=== PATIENT | female | born 1970 | race Caucasian/White ===

== ENCOUNTER 2022-01-08 12:53 | Outpatient (CLI) | payer BC, SELFPAY ==
--- NOTE | 2022-01-08 13:15 | CRLHL7_ITS ---
For Patients: As a result of the Century Cures Act, medical imaging exams and procedure reports are released immediately into your electronic medical record. You may view this report before your referring provider. If you have questions, please contact your health care provider. INDICATION: History of a right-sided lung cancer status post right lower lobectomy in 2015. Patient with prior radiation treatment. Patient with ongoing systemic therapy. Exam is being performed for restaging. TECHNIQUE: Patient received 13.1 millicuries of 18 FDG (18 fluorodeoxyglucose) intravenously. PET-CT imaging has been performed from the mid skull to mid thigh level at [address] images have been obtained for attenuation correction and localization only. Blood glucose level: 92 mg/dL. COMPARISON: PET-CT dated 04/03/2021. FINDINGS: Within the chest no abnormal uptake is identified in the mediastinum or hilar regions. Activity associated with the right atrium is identified which is likely physiologic. The lungs demonstrate no abnormal uptake. There are postsurgical changes from a right lower lobectomy. No suspicious infiltrates or masses are seen. Axilla and chest wall demonstrates no significant abnormal uptake. The neck demonstrates symmetric salivary and oropharyngeal activity, no suspicious hypermetabolic lymph nodes are seen. The skullbase is unremarkable. Liver and spleen demonstrate no significant abnormal uptake. Large geographic central low-dense lesion within the left lobe of the liver is again identified and unchanged. This continues to have relative decreased activity within the central portion of this and the pattern is stable. The spleen, pancreas, bilateral adrenal glands demonstrate no both abnormal uptake. The gallbladder is contracted with areas of increased density. This demonstrates no abnormal uptake. Retrocrural region and retroperitoneum demonstrate no abnormal uptake. The iliac rigoberto chain and groin demonstrate no significant abnormal uptake. IUD is in place within the uterus without abnormal uptake. There is prominent physiologic bowel activity. Skeletal system demonstrates lucency within the L4 vertebral body without abnormal uptake. The pattern is stable. There is a diffuse moderate pattern of marrow activity on today`s PET-CT. IMPRESSION: 1. Stable PET-CT scan. 2. No hypermetabolic lesions are identified to suggest residual viable tumor or recurrent disease. 3. There is a large lesion within the left lobe liver which is stable. This may reflect a large hemangioma. 4. Stable lucent lesion L4 vertebral body without abnormal uptake. 5. Stable postsurgical changes from partial lung resection on the right. Dictated by Valente Cobb MD @ 01/14/2022 8:14:56 AM (Electronically Signed)
== END 2022-01-08 12:54 | disposition home or self-care (01) ==
PROVIDERS: Visit Provider Internal Medicine Medical Oncology
DX: C34.31 Malignant neoplasm of lower lobe, right bronchus or lung (principal); K76.9 Liver disease, unspecified; M89.9 Disorder of bone, unspecified
CPT/HCPCS: 78815; A9552

== ENCOUNTER 2022-02-09 07:03 | Outpatient (CLI) | payer BC, SELFPAY ==
--- OUTSIDE RECORDS SUMMARY | 2022-02-09 07:05 | XMS_ITS | Encounter Summary ---
:1970 Author Organization [facility] Address [address] [place] [address] Care Team Providers Name Role Phone Jessica Schulz APRN, C.N.PEvette, D.N.P. Primary Care Provider Reason for Referral Specialty Diagnoses / Procedures Referred By Contact Refer red To Contact Jessica Schulz APRN, C.N.PEvette, [facility] D.N.P. [address] [phone] Referral ID Status Reason Start Date Expiration Date Visits Requ ested Visits Authorized [employer] Encounter Details Date Type Department Care Team Description 06/29/2021 Orders Only [facility] PCP [facility] Jessica Schulz APRN, C.N.PEvette, D.N.P. [address] [phone] (Wo rk) Social History Tobacco Use Types Packs/Day Years Used Date Smoking Tobacco: Former Smokeless Tobacco: Never Alcohol Habits Answer Date Recorded How often do you have a drink containing alcohol? Monthly or less 12/08/2018 How many drinks containing alcohol do you have on a 1 or 2 12/23/2018 typical day when you are drinking? How often do you have six or more drinks on one Less than mo nthly 12/23/2018 occasion? Comment: Not asked Social Isolation Answer Date Recorded In a typical week, how many times do you More than three gracia es a week 12/08/2018 talk on the phone with family, friends, or neighbors? How often do you get together with friends Once a week 12/08/2018 or relatives? How often do you attend orthodoxy or 1 to 4 times per year 11/21 buddhist services? Do you belong to any clubs or No 12/08/2018 organizations such as orthodoxy groups, unions, fraUnderground Cellar or athletic groups, or school groups? How often do you attend meetings of the Never 12/08/2018 clubs or organizations you belong to? Are you now , , , Living with partner 12/08/2018 , never or living with a partner? Physical Activity Answer Date Recorded On average, how many days per week do you engage in moderate to 3 days 12/08/2018 strenuous exercise (like walking fast, running, jogging, dancing, swimming, biking, or other activities that cause a light or heavy sweat)? On average, how many minutes do you engage in exercise at th is 30 min 12/08/2018 level? Stress Answer Date Recorded Do you feel stress - tense, restless, nervous, or Only a lit tle 12/23/2018 anxious, or unable to sleep at night because your mind is troubled all the time - these days? Financial Resource Strain Answer Date Recorded How hard is it for you to pay for the very basics like Not h rik at all 12/08/2018 food, housing, medical care, and heating? Intimate Partner Violence Answer Date Recorded Within the last year, have you been afraid of your partner o r No 12/08/2018 ex-partner? Within the last year, have you been humiliated or emotionall y No 12/08/2018 abused in other ways by your partner or ex-partner? Within the last year, have you been kicked, hit, slapped, or No 12/08/2018 otherwise physically hurt by your partner or ex-partner? Within the last year, have you been raped or forced to have any No 12/08/2018 kind of sexual activity by your partner or ex-partner? Food Insecurity Answer Date Recorded Within the past 12 months, you worried that your food would Never true 12/08/2018 run out before you got money to buy more. Within the past 12 months, the food you bought just didn't N ever true 12/08/2018 last and you didn't have money to get more. Transportation Needs Answer Date Recorded In the past 12 months, has lack of transportation kept you f rom No 12/08/2018 medical appointments or from getting medications? In the past 12 months, has lack of transportation kept you f rom No 12/08/2018 meetings, work, or getting things needed for daily living? Education Answer Date Recorded What is the highest level of school Associate degree: shanita mckeon, 12/08/2018 you have completed or the highest technical, or vocational p ferdinandram degree you have received? Sex Assigned at Date Recorded Not on file documented as of this encounter Plan of Treatment Scheduled Referrals Name Type Priority Associated Order Schedule Diagnoses Covid immunization Outpatient Referral Routine Ex pected: office visit Booster 022 (Approximate), Expires: 06/29/2022 documented as of this encounter Visit Diagnoses Not on filedocumented in this encounter Additional Health Concerns Assessment Noted Time PHQ-9 Depression Total Score: 13 01/17/2019 8:17 AM CD T documented as of this encounter Care Teams Lead Software Engineer Relationship Specialty Start Date End Date Jessica Schulz APRN, C.N.P., D.N.P. PCP - General 12/12/[address] [phone] documented as of this encounter
--- OUTSIDE RECORDS SUMMARY | 2022-02-09 07:05 | XMS_ITS | Encounter Summary ---
:1970 Author Organization [facility] Address [address] [place] [address] Care Team Providers Name Role Phone Jessica Schulz APRN, C.N.PEvette, D.N.P. Primary Care Provider Reason for Referral Outpatient (Routine) - Authorized Specialty Diagnoses / Procedures Referred By Contact Refer red To Contact Family Medicine Jessica Schulz, PRATIK, MILESS [facility] C.N.P., D.N.P. [address], [place] [address] Referral ID Status Reason Start Date Expiration Date Visits V isits Requested Authorized [id number] Authorized 08/26/2021 08/26/2022 1 1 Encounter Details Date Type Department Care Team Description 08/26/2021 Orders Only [facility] Jessica Schulz, Screening Examination Diabetes Mellitus; PRATIK C.N.PEvette, Screening Lipi d D.N.P. [address], [place] [address] Social History Tobacco Use Types Packs/Day Years [...] or relatives? How often do you attend taoism or 1 to 4 times per year 11/21 mu-ism services? Do you belong to any clubs or No 12/08/2018 organizations such as taoism groups, unions, fraCardize or athletic groups, or school groups? How [...] or the highest technical, or vocational p Ezeecuberam degree you have received? Sex Assigned at Date Recorded Not on file documented as of this encounter Plan of Treatment Scheduled Orders Name Type Priority Associated Diagnoses Order S [facility] Glucose, Fasting Lab Routine Screening Examination Ex pected: 09/09/2021, Diabetes Mellitus Expires: 1 Lipid Panel Lab Routine Screening Lipid Expected: , Expires: 2021 Scheduled Referrals Name Type Priority Associated Diagnoses [facility] Referral Routine Expec paula: office visit 09/09/2021, (clinic) Expires: 02/22/2022 documented as of this encounter Visit Diagnoses Diagnosis Screening Examination Diabetes Mellitus Screening Lipid documented in this encounter Additional Health Concerns Assessment Noted Time PHQ-9 Depression Total Score: 13 01/17/2019 8:17 AM CD T documented as of this encounter Care Teams Peanut Sheller Relationship Specialty Start Date End Date Jessica Schulz APRN, C.N.P., D.N.P. PCP - General 12/12/20 [address], [place] [address] documented as of this encounter
--- OUTSIDE RECORDS SUMMARY | 2022-02-09 07:05 | XMS_ITS | Encounter Summary ---
:1970 Author Organization [facility] Address [address] [place] [address] Care Team Providers Name Role Phone Valente Hester M.D. Primary Care Provider Encounter Details Date Type Department Care Team Description 10/25/2020 Patient Self-Triage [facility] Symptom Welding Systems And Equipment Repairer, Provider Social History Tobacco Use Types Packs/Day Years [...] or relatives? How often do you attend episcopalian or 1 to 4 times per year 11/21 restorationism services? Do you belong to any clubs or No 12/08/2018 organizations such as episcopalian groups, unions, fraternal or athletic groups, or school groups? How [...] or the highest technical, or vocational p ady degree you have received? Sex Assigned at Date Recorded Not on file documented as of this encounter Plan of Treatment Not on filedocumented as of this encounter Visit Diagnoses Not on filedocumented in this encounter Additional Health Concerns Assessment Noted Time PHQ-9 Depression Total Score: 13 01/17/2019 8:17 AM CD T documented as of this encounter Care Teams Physical Director Relationship Specialty Start Date End Date Valetne Hester M.D. PCP - General 08/21/20 12/11/20 [address] [place] [phone] documented as of this encounter
--- OUTSIDE RECORDS SUMMARY | 2022-02-09 07:05 | XMS_ITS | Clinical Summary ---
:1970 Author Organization [facility] Address [address] [place] [address] Care Team Providers Name Role Phone Jessica Schulz APRN, C.N.P., D.N.P. Primary Care Provider Source Comments Patient records contain information from all sites at [facility]. For routine questions regarding patient records, call [phone] during business hours, M-F 8:00 AM - 5:00 PM Central Time. Record requests for emergency care only can be directed to [phone] at any time.[facility] Allergies No known active allergies Medications Medication Sig Dispensed Refills Start Date End Date Status acetaminophen 325 mg as needed. 0 08/05/2015 Active capsule levonorgestrel by intrauterine 0 01/26/2007 Active (MIRENA) 20 mcg/24 route. 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 on 02/01/2019 Pathologic stage from 02/01/2019: pT2, pN 2, cM0 - Signed by Chance Lamas M.D. on 02/01/2019 Immunizations Name Administration Dates Next Due Influenza, Unspecified 03/30/2013 SARS-COV-2 (COVID-19) - MODERNA 08/12/2021, 01/17/2021 Tdap 03/30/2013 Social History Tobacco Use Types Packs/Day Years [...] 1 to 4 times per year 11/21 taoism services? Do you belong to any clubs or No 12/08/2018 organizations such as orthodoxy groups, unions, fraternal or athletic groups, or [...] or the highest technical, or vocational p [facility] degree you have received? Sex Assigned at Date Recorded Not on file Last Filed Vital Signs Vital Sign Reading Time Taken Comments Blood Pressure 120/80 03/30/2019 9:47 AM SQUARE CUTTER Pulse 78 03/30/2019 9:47 AM SQUARE CUTTER Temperature 36.3 ??C (97.3 ??F) 03/30/2019 9:47 AM SQUARE CUTTER Respiratory Rate 18 12/04/2018 8:14 AM CDT Oxygen Saturation - - Inhaled Oxygen Concentration - - Weight 109 kg (239 lb 6.7 oz) 03/30/2019 9:47 AM SQUARE CUTTER Height 166.4 cm (5' 5.5) 03/28/2019 9:54 AM SQUARE CUTTER Body Mass Index 39.24 03/28/2019 9:54 AM SQUARE CUTTER Plan of Treatment Health Maintenance Due Date Last Done Comments CT Colonography 1970 Cologuard 1970 Colonoscopy 1970 Colorectal Cancer Screening 1970 FIT 1970 HIV Screening 1970 Hepatitis B Vaccines (1 of 3 - 1970 3-dose series) Hepatitis C Screening 1970 Pneumococcal vaccine (0-64 years) 09/29/1977 (1 - PCV) Zoster Vaccines (1 of 2) 09/29/1990 Mammogram 07/05/2014 07/05/2013 (Performed elsewhere), 03/30/2013, 09/05/2012 (Performed elsewhere) Cervical Cancer Screening 03/30/2016 03/30/2013 Fasting Glucose for Diabetes 09/07/2017 09/07/2014, 013, Screening 04/12/2013, Additional history exists Lipid (Cholesterol) Screening 04/04/2018 04/04/2013 Depression Screening (Annual 05/24/2021 PHQ-2) COVID-19 Vaccine (5 - Booster for 12/12/2021 08/12/2021, , Moderna series) 08/28/2020, Additional history exists Influenza Vaccine (#1) 2022 03/30/2013 DTaP,Tdap,and Td Vaccines (2 - Td 03/30/2023 03/30/2013 or Tdap) Medical Devices Implanted Type Area Credit Correspondence Clerk Device Shelf Model / Identifier Expiration Serial / Date Lot Conversions - Default Historical Implant Device Intrauterine Other/Leg acy Implanted: 05/24/2009 (Quantity not on file) Device - See Implant Description Description: Device Status Text - IUD.Mi darnell Procedures Procedure Name Priority Date/Time Associated Diagnosis Comme nts OUTSIDE NM PET Routine 01/08/2022 2:30 PM Results for this CDT procedure are i n the results section . from Last 3 Months Results PET SKULL to MID THIGH-Outside NM Pet (01/08/2022 2:30 PM CDT) Specimen (Source) Anatomical Location Collection Method / Collectio n Time Received Time / Laterality Volume Narrative IIMS - 01/14/2022 9:50 AM CDT This order has been created and auto-finalized to support the import of outside images. If available, original i nterpretation can be found on the Media Tab in Chart Review, in Document V iewer, or as an image in QREADS. If a re-interpretation or overread is re quired please follow defined workflow. ?? Provider Not In System IMG NM PROCEDURES Performing Organization Address City/State/ZIP Code Phon e Number IIMS IIMS NA from Last 3 Months Insurance Payer Benefit Plan / Subscriber ID Effective Dates Phone Addre ss Type Group BLUE CROSS ANTHEM BLUE [id number] 2021-Yaneth [phone] PO TAZ X [id number] PPO BLUE SHIELD ACCESS t [address] [place] [address] Care Teams Cytogenetics Technologist Relationship Specialty Start Date End Date Jessica Schulz APRN, C.N.P., D.N.P. PCP - General 12/12/20 [address] [place] [address]
--- OUTSIDE RECORDS SUMMARY | 2022-02-09 07:05 | XMS_ITS | Encounter Summary ---
:1970 Author Organization [facility] Address [address] [place] [address] Care Team Providers Name Role Phone Valente Hester M.D. Primary Care Provider Encounter Details Date Type Department Care Team Description 10/25/2020 E-Visit [facility] Express Judi Benitez, RE: Express Care Online Care at the [facility], C.N.P., for Bladde r Infection Building on the 4th D.N.P. (female only, age 12-75 Floor [address] [place] [address] years) [address] [place] [address] [phone] Social History Tobacco Use Types Packs/Day Years [...] or relatives? How often do you attend anabaptism or 1 to 4 times per year 11/21 anabaptism services? Do you belong to any clubs or No 12/08/2018 organizations such as anabaptism groups, unions, fraternal or athletic groups, or [...] highest level of school Associate degree: shanita ambrocioj carlos, 12/08/2018 you have completed or the highest technical, or vocational p ady degree you have received? Sex Assigned at Date Recorded Not on file documented as of this encounter Plan of Treatment Not on filedocumented as of this encounter Visit Diagnoses Diagnosis Symptom Urinary - Primary documented in this encounter Additional Health Concerns Assessment Noted Time PHQ-9 Depression Total Score: 13 01/17/2019 8:17 AM CD T documented as of this encounter Care Teams Gasoline Pump Installer Relationship Specialty Start Date End Date Valente Hester M.D. PCP - General 08/21/20 12/11/20 [address] [place] [phone] documented as of this encounter
--- OUTSIDE RECORDS SUMMARY | 2022-02-09 07:05 | XMS_ITS | Encounter Summary ---
:1970 Author Organization [facility] Address [address] [place] [address] Care Team Providers Name Role Phone Jessica Schulz APRN, C.N.P., D.N.P. Primary Care Provider Encounter Details Date Type Department Care Team Description 08/12/2021 Immunization Department of Family Medicine, [facility], in [place], [place] [address] [place] [address] [facility] [phone] Social History Tobacco Use Types Packs/Day Years [...] or relatives? How often do you attend synagogue or 1 to 4 times per year 11/21 alevism services? Do you belong to any clubs or No 12/08/2018 organizations such as synagogue groups, unions, fraternal or athletic groups, or [...] documented as of this encounter Care Teams Carboy Filler Relationship Specialty Start Date End Date Jessica Schulz APRN, C.N.P., D.N.P. PCP - General 12/12/20 [address], [place] [address] documented as of this encounter
--- OUTSIDE RECORDS SUMMARY | 2022-02-09 07:05 | XMS_ITS | Encounter Summary ---
:1970 Author Organization [facility] Address [address] [place] [address] Care Team Providers Name Role Phone Jessica Schulz APRN, C.N.P., D.N.P. Primary Care Provider Reason for Visit Reason Comments Med Refill Encounter Details Date Type Department Care Team Description 09/19/2021 Refill Department of Oncology in [facility], Aniket Valenzuela M.D. Med Refill [employer], [place] [address] [facility] [address] [place] [address] [place] [address] [phone] Social History Tobacco Use Types Packs/Day Years [...] or relatives? How often do you attend adventist or 1 to 4 times per year 11/21 baptism services? Do you belong to any clubs or No 12/08/2018 organizations such as adventist groups, unions, fraternal or athletic groups, or [...] documented as of this encounter Care Teams Wine Steward Relationship Specialty Start Date End Date Jessica Schulz APRN, C.N.P., D.N.P. PCP - General 12/12/20 [address] [place] [address] documented as of this encounter
--- OUTSIDE RECORDS SUMMARY | 2022-02-09 07:05 | XMS_ITS | Encounter Summary ---
:1970 Author Organization [facility] Address [address] [place] [address] Care Team Providers Name Role Phone Jerardo Streeter M.D. Primary Care Provider Reason for Visit Reason Onset Date Comments Outpatient COVID-19 Testing Outpatient COVID-19 Testing 12/25/2019 Encounter Details Date Type Department Care Team Description 12/25/2019 External Outreach Department of [facility] Internal Medicine in [facility] Respiratory (Primary [place], [place] [address] Dx) [address] [place] [phone] Social History Tobacco Use Types Packs/Day Years [...] or relatives? How often do you attend jain or 1 to 4 times per year 11/21 pentecostal services? Do you belong to any clubs or No 12/08/2018 organizations such as jain groups, unions, fraternal or athletic groups, or [...] highest level of school Associate degree: shanita mkceon, 12/08/2018 you have completed or the highest technical, or vocational p ady degree you have received? Sex Assigned at Date Recorded Not on file documented as of this encounter Progress Notes Debora Cantor R.N. - 12/25/2019 9:31 AM CDT Encounter created for the drive-through COVID-19 testing. documented in this encounter Plan of Treatment Not on filedocumented as of this encounter Procedures Procedure Name Priority Date/Time Associated Diagnosis Comme nts SARS CORONAVIRUS-2 Routine 12/26/2019 4:20 PM Infection Upper Results for this RNA, V CDT Respiratory procedure are i n the results section. documented in this encounter Results SARS Coronavirus-2 RNA, V Asymptomatic (12/26/2019 4:20 PM CDT) [facility] gist Method Time Signature SARS-CoV-2 Swab, 12/28/2019 [facility] Specimen Nasopharynx 12:51 AM Source CDT SARS CoV-2 Undetected Undetected 12/28/2019 [facility] RNA, TMA 12:51 AM CDT Comment: SARS-CoV-2 RNA absent. This result does not rule out COVID-19 in the patient, as the sensitivity of the test depends o n the timing of the specimen collection and the quality of the specim en. Result should be correlated with patient's history and clinical presentat ion. ----ADDITIONAL INFORMATION---- This test is performed using the Aptima SARS-CoV-2 assay ([employer] which has received Emergency Use Authori zation (EUA) by the U.S. Food and Drug Administration. Fact sheets for this Emergency Use Autho rization (EUA) assay can be found at the following links: For Healthcare Providers: https://www.fd a.gov/media/303482/download For Patients: https://www.fda.gov/media/ 108618/download Specimen Anatomical Collection Method Collection Time Receive d Time (Source) Location / / Volume Laterality Varies 12/26/2019 4:20 PM 0 (Nasopharynx) CDT 11:28 PM CDT Hansel Linton D.O. LAB MICROBIOLOGY - GENERAL O RDERABLES Performing Organization Address City/State/ZIP Code Phon e Number [employer]- [address] [place] [id number] [place] [address] [address] documented in this encounter Visit Diagnoses Diagnosis Infection Upper Respiratory - Primary documented in this encounter Additional Health Concerns Infection Onset Date Last Indicated Resolved Time COVID19 Pending 12/25/2019 12/26/2019 12/28/2019 12:52 AM CDT Assessment Noted Time PHQ-9 Depression Total Score: 13 01/17/2019 8:17 AM CD T documented as of this encounter Care Teams Telephone Solicitor Relationship Specialty Start Date End Date Jerardo Streeter M.D. PCP - General 05/04/19 08/20/20 [address] [place] [address] documented as of this encounter
--- OUTSIDE RECORDS SUMMARY | 2022-02-09 07:05 | XMS_ITS | Encounter Summary ---
:1970 Author Organization [facility] Address [address] [place] [address] Care Team Providers Name Role Phone Jessica Schulz APRN, C.N.P., D.N.P. Primary Care Provider Reason for Referral Specialty Diagnoses / Procedures Referred By Contact Refer red To Contact Yasmine Gale M.D. [facility] [address] [place] [address] Referral ID Status Reason Start Date Expiration Date Visits Requ ested Visits Authorized Encounter Details Date Type Department Care Team Description 01/07/2021 Orders Only [facility] Sa christian Gale M.D. [address] [place] [phone] (Wo rk) Social History Tobacco Use Types [...] or relatives? How often do you attend zoroastrian or 1 to 4 times per year 11/21 restorationist services? Do you belong to any clubs or No 12/08/2018 organizations such as zoroastrian groups, unions, fraternal or athletic groups, or [...] Referral Routine Ex pected: office visit Booster 021 (Approximate), Expires: 01/07/2022 documented as of this encounter Visit Diagnoses Not on filedocumented in this encounter Additional Health Concerns Assessment Noted Time PHQ-9 Depression Total Score: 13 01/17/2019 8:17 AM CD T documented as of this encounter Care Teams Graphic Editor Relationship Specialty Start Date End Date Jessica Schulz APRN, C.N.P., D.N.P. PCP - General 12/12/20 [address] [place] [phone] documented as of this encounter
--- OUTSIDE RECORDS SUMMARY | 2022-02-09 07:05 | XMS_ITS | Encounter Summary ---
:1970 Author Organization [facility] Address [address] [place] [address] Care Team Providers Name Role Phone Jessica Schulz APRN, C.N.P., D.N.P. Primary Care Provider Encounter Details Date Type Department Care Team Description 05/29/2021 [facility] Only [facility], Screening Mammogram PRATIK, C.N.P., Breast Cancer D.N.P. [address], [place] [address] Social History Tobacco Use Types [...] or relatives? How often do you attend confucianist or 1 to 4 times per year 11/21 pentecostal services? Do you belong to any clubs or No 12/08/2018 organizations such as confucianist groups, unions, fraternal or athletic groups, or [...] the highest level of school Associate degree: gaetanoheather mckeon, 12/08/2018 you have completed or the highest technical, or vocational marybel garsia degree you have received? Sex Assigned at Date Recorded Not on file documented as of this encounter Plan of Treatment Not on filedocumented as of this encounter Visit Diagnoses Diagnosis Screening Mammogram Breast Cancer documented in this encounter Additional Health Concerns Assessment Noted Time PHQ-9 Depression Total Score: 13 01/17/2019 8:17 AM CD T documented as of this encounter Care Teams Parish Nurse Relationship Specialty Start Date End Date Jessica Schuzl APRN, C.N.P., D.N.P. PCP - General 12/12/[address] [place] [phone] documented as of this encounter
--- OUTSIDE RECORDS SUMMARY | 2022-02-09 07:05 | XMS_ITS | Encounter Summary ---
:1970 Author Organization [facility] Address [address] [place] [address] Care Team Providers Name Role Phone Valente Hester M.D. Primary Care Provider Encounter Details Date Type Department Care Team Description 12/10/2020 Orders Only [facility] PCP [facility] Edwin Hester Examination Diabetes Mellitus; Silva Victor Screening Lipid [address] [place] [phone] Social History Tobacco Use Types Packs/Day Years [...] or relatives? How often do you attend holiness or 1 to 4 times per year 11/21 jainism services? Do you belong to any clubs or No 12/08/2018 organizations such as holiness groups, unions, fraternal or athletic groups, or [...] documented as of this encounter Care Teams Gang Vibrator Operator Relationship Specialty Start Date End Date Valente Hester M.D. PCP - General 08/21/20 12/11/20 [address] [place] [phone] documented as of this encounter
--- OUTSIDE RECORDS SUMMARY | 2022-02-09 07:05 | XMS_ITS | Encounter Summary ---
:1970 Author Organization [facility] Address [address] [place] [address] Care Team Providers Name Role Phone Jerardo Streeter M.D. Primary Care Provider Reason for Visit Reason Onset Date Comments Outpatient COVID-19 Testing 01/30/2020 Encounter Details Date Type Department Care Team Description 01/30/2020 External Outreach Department of Hansel Linton Infect ion [facility] Internal Medicine in J, D.O. Respiratory (Primary [place], [place] [address] Dx) [address] [place] [phone] Social History Tobacco Use Types Packs/Day [...] or relatives? How often do you attend restorationist or 1 to 4 times per year 11/21 oriental orthodox services? Do you belong to any clubs or No 12/08/2018 organizations such as restorationist groups, unions, fraternal or athletic groups, or [...] documented as of this encounter Progress Notes Judi Raymodn R.N. - 01/30/2020 4:35 PM CDT Encounter created for the drive-through COVID-19 testing. documented in this encounter Plan of Treatment Not on filedocumented as of this encounter Procedures Procedure Name Priority Date/Time Associated Diagnosis Comme nts SARS CORONAVIRUS-2 Routine 01/30/2020 4:37 PM Infection Upper Results for this RNA, V CDT Respiratory procedure are i n the results section. documented in this encounter Results SARS Coronavirus-2 RNA, V Symptomatic (01/30/2020 4:37 PM CDT) [facility] gist Method Time Signature SARS-CoV-2 Swab, 01/31/2020 [facility] Specimen Nasopharynx 5:28 AM CDT Source SARS CoV-2 Undetected Undetected 01/31/2020 [facility] RNA, TMA 5:28 AM CDT Comment: SARS-CoV-2 RNA absent. This result does not rule out COVID-19 in the patient, as the sensitivity of the test depends o n the timing of the specimen collection and the quality of the specim en. Result should be correlated with patient's history and clinical presentat ion. ----ADDITIONAL INFORMATION---- This test is performed using the Aptima SARS-CoV-2 assay ([employer] which has received Emergency Use Authori zation (EUA) by the U.S. Food and Drug Administration. Fact sheets for this Emergency Use Autho rization (EUA) assay can be found at the following links: For Healthcare Providers: https://www.fd a.gov/media/970927/download For Patients: https://www.fda.gov/media/ 794787/download Specimen Anatomical Collection Method Collection Time Receive d Time (Source) Location / / Volume Laterality Varies 01/30/2020 4:37 PM 0 9:05 (Nasopharynx) CDT PM CDT Hansel Linton D.O. LAB MICROBIOLOGY - GENERAL O RDERABLES Performing Organization Address City/State/ZIP Code Phon e Number [facility]- [address] [place] [phone] [place] [address] System in [place] [address] [place] [address] documented in this encounter Visit Diagnoses Diagnosis Infection Upper Respiratory - Primary documented in this encounter Additional Health Concerns Infection Onset Date Last Indicated Resolved Time COVID19 Pending 01/30/2020 01/30/2020 01/31/2020 5:29 AM CDT Assessment Noted Time PHQ-9 Depression Total Score: 13 01/17/2019 8:17 AM CD T documented as of this encounter Care Teams Animal Control Supervisor Relationship Specialty Start Date End Date Jerardo Streeter M.D. PCP - General 05/04/19 08/20/20 [address] [place] [address] documented as of this encounter
--- OUTSIDE RECORDS SUMMARY | 2022-02-09 07:05 | XMS_ITS ---
:1970 Author Organization [facility] Address [address] [place] [address] Care Team Providers Name Role Phone Jessica Schulz APRN, C.N.P., D.N.P. 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 on 02/01/2019 Pathologic stage from 02/01/2019: pT2, pN 2, cM0 - Signed by Chance Lamas M.D. on 02/01/2019 Current Oncology Plans No current plan information found. Past Plans No past plan information found. Radiation Treatments Plan Last Treated Elapsed Days Fractions Prescribed Prescribed Total On Treated Fraction Dose Dose F1 L3-5 02/08/2019 6 5 of 5 400 cGy 2,000 cGy Spine Reference Point Last Treated On Elapsed Days Session Dose Total Dos e [id number] 02/08/2019 6 400 cGy 2,000 cGy
--- OUTSIDE RECORDS SUMMARY | 2022-02-09 07:05 | XMS_ITS | Encounter Summary ---
:1970 Author Organization [facility] Address [address] [place] [address] Care Team Providers Name Role Phone Jerardo Streeter M.D. Primary Care Provider Reason for Visit Reason Onset Date Comments Outpatient COVID-19 Testing 01/25/2020 Encounter Details Date Type Department Care Team Description 01/25/2020 External Outreach Department of Hansel Linton Infect ion [facility] Internal Medicine in J, D.O. Respiratory (Primary [place], [place] [address] Dx) [address] [place] [phone] Social History Tobacco Use Types Packs/Day [...] or relatives? How often do you attend protestant or 1 to 4 times per year 11/21 yazidism services? Do you belong to any clubs or No 12/08/2018 organizations such as protestant groups, unions, fraternal or athletic groups, or [...] as of this encounter Progress Notes Debora Sellers C.M.A. - 01/25/2020 11:36 AM CDT Encounter created for the drive-through COVID-19 testing. documented in this encounter Miscellaneous Notes Addendum Note - Luis Garcia R.N. - 01/25/2020 11:36 AM CDT Addended by: LUIS GARCIA on: 01/28/2020 11:04 AM Modules accepted: Orders documented in this encounter Plan of Treatment Not on filedocumented as of this encounter Visit Diagnoses Diagnosis Infection Upper Respiratory - Primary documented in this encounter Additional Health Concerns Infection Onset Date Last Indicated Resolved Time COVID19 Pending 01/25/2020 01/25/2020 01/28/2020 11:04 AM CDT Assessment Noted Time PHQ-9 Depression Total Score: 13 01/17/2019 8:17 AM CD T documented as of this encounter Care Teams Security Controls Assessor Relationship Specialty Start Date End Date Jerardo Streeter M.D. PCP - General 05/04/19 08/20/20 [address] [place] [address] documented as of this encounter
--- OUTSIDE RECORDS SUMMARY | 2022-02-09 07:05 | XMS_ITS | Encounter Summary ---
:1970 Author Organization [facility] Address [address] [place] [address] Care Team Providers Name Role Phone Valente Hester M.D. Primary Care Provider Encounter Details Date Type Department Care Team Description 08/23/2020 Orders Only [facility] PCP [facility] Sa christian Pereira M.D. [address] [place], [place] [phone] (Wo rk) Social History Tobacco [...] or relatives? How often do you attend druze or 1 to 4 times per year 11/21 hinduism services? Do you belong to any clubs or No 12/08/2018 organizations such as druze groups, unions, fraternal or athletic groups, or [...] documented as of this encounter Care Teams Amusement Machine Mechanic Relationship Specialty Start Date End Date Valente Hester M.D. PCP - General 08/21/20 12/11/20 [address] [place] [phone] documented as of this encounter
--- OUTSIDE RECORDS SUMMARY | 2022-02-09 07:05 | XMS_ITS | Encounter Summary ---
:1970 Author Organization [facility] Address [address] [place] [address] Care Team Providers Name Role Phone Jerardo Streeter M.D. Primary Care Provider Reason for Visit Reason Onset Date Comments Outpatient COVID-19 Testing 11/21/2019 Encounter Details Date Type Department Care Team Description 11/21/2019 External Outreach Department of Hansel Linton Infect ion [facility] Internal Medicine in J, D.O. Respiratory (Primary [place], [place] [address] Dx) [address] [place] [phone] Social History Tobacco Use Types Packs/Day [...] or relatives? How often do you attend jewish or 1 to 4 times per year 11/21 muslim services? Do you belong to any clubs or No 12/08/2018 organizations such as jewish groups, unions, fraternal or athletic groups, or [...] as of this encounter Progress Notes Judi Raymond R.N. - 11/21/2019 4:09 PM CDT Encounter created for the drive-through COVID-19 testing. documented in this encounter Plan of Treatment Not on filedocumented as of this encounter Procedures Procedure Name Priority Date/Time Associated Comments Diagnosis SARS CORONAVIRUS 2 Routine 11/21/2019 4:15 PM Res ults for this PCR DETECT, V CDT procedure are in the results section. documented in this encounter Results SARS Coronavirus 2 RNA Detection (11/21/2019 4:15 PM CDT) [facility] Method Time Signature SARS-CoV-2 Nasopharynx 11/22/2019 [facility] Specimen 6:57 PM CDT Source SARS-CoV-2 Undetected Undetected 11/22/2019 [facility] RNA by PCR 6:57 PM CDT Comment: SARS-CoV-2 RNA absent. This result does not rule out COVID-19 in the patient, as the sensitivity of the test depends o n the timing of the specimen collection and the quality of the specim en. Result should be correlated with patient's history and clinical presentat ion. ----ADDITIONAL INFORMATION---- This test using the doron SARS-CoV-2 ass ay ([employer] performed on the doron 6800 System has r eceived Emergency Use Authorization (EUA) by the U.S. Food and Drug Administ ration, and is modified from the slab tripper's instructions with a bridg ing study. Performance characteristics were verified by [facility] in a manner consistent with CLIA requirements. Fact sheets for this Emergency Use Autho rization (EUA) assay can be found at the following links: For Healthcare Providers: https://www. a.gov/media/965345/download For Patients: https://www.fda.gov/media/ 805489/download Specimen Anatomical Collection Method Collection Time Receive d Time (Source) Location / / Volume Laterality Varies 11/21/2019 4:15 PM 0 CDT 12:27 PM CDT Hansel Linton D.O. LAB MICROBIOLOGY - GENERAL O RDERABHAVYA Performing Organization Address City/State/ZIP Code Phon e Number [facility] [address] [place], [place] [phone] [facility] [place] [address] Laboratory Medicine and Pathology [address] [place] documented in this encounter Visit Diagnoses Diagnosis Infection Upper Respiratory - Primary documented in this encounter Additional Health Concerns Infection Onset Date Last Indicated Resolved Time COVID19 Pending 11/13/2019 11/13/2019 11/22/2019 6:57 PM CDT Assessment Noted Time PHQ-9 Depression Total Score: 13 01/17/2019 8:17 AM CD T documented as of this encounter Care Teams Rounder Hand Relationship Specialty Start Date End Date Jerardo Streeter M.D. PCP - General 05/04/19 08/20/[address] [place] [address] documented as of this encounter
--- OUTSIDE RECORDS SUMMARY | 2022-02-09 07:05 | XMS_ITS | Encounter Summary ---
:1970 Author Organization [facility] Address [address] [place] [address] Care Team Providers Name Role Phone Jerardo Streeter M.D. Primary Care Provider Reason for Visit Reason Onset Date Comments Outpatient COVID-19 Testing 10/25/2019 Encounter Details Date Type Department Care Team Description 10/25/2019 External Outreach Department of Hansel Linton Infect ion [facility] Internal Medicine in J, D.O. Respiratory (Primary [place], [place] [address] Dx) [address] [place] [phone] Social History Tobacco Use Types Packs/Day [...] or relatives? How often do you attend sikhism or 1 to 4 times per year 11/21 hinduism services? Do you belong to any clubs or No 12/08/2018 organizations such as sikhism groups, unions, fraternal or athletic groups, or [...] as of this encounter Progress Notes Debora Mead R.N. - 10/25/2019 11:25 AM CDT Encounter created for the drive-through COVID-19 testing. documented in this encounter Plan of Treatment Not on filedocumented as of this encounter Procedures Procedure Name Priority Date/Time Associated Diagnosis Comme nts SARS CORONAVIRUS-2, Routine 10/25/2019 11:52 AM Infection Uppe r Results for this PCR CDT Respiratory procedure are i n the results section. documented in this encounter Results SARS Coronavirus-2, PCR Symptomatic (10/25/2019 11:52 AM CDT) [facility] gist Method Time Signature SARS Swab, 10/26/2019 [facility] Coronavirus-2 Nasopharynx 1:53 AM CDT Source SARS Undetected Undetected 10/26/2019 [facility] Coronavirus-2 1:53 AM CDT , PCR Comment: SARS-CoV-2 RNA absent. This result does not rule out COVID-19 in the patient, as the sensitivity of the test depends o n the timing of the specimen collection and quality of the specimen. Result should be correlated with patient's history and clinical presentat ion. ----ADDITIONAL INFORMATION---- This test was developed and its performa nce characteristics determined by [facility] in a manner co nsistent with CLIA requirements. Independent review by the U.S. Food and Drug Administration is pending. Visit the CDC website: https://www.cdc.gov/coronavirus/ ?? for the most recent guidelines on [place] virus testing. Fact Sheet for Healthcare Providers: (https://www.[facility]aja medical institutecoUrbanize.com/it-mmfil es/ Provider_Fact_Sheet_for_[facility]_COVI D-19.pdf) Fact Sheet for Patients: (https://www.[facility]aja medical instituteiniclabs.com/it-mmfil es/ Patient_Fact_Sheet_for_COVID-19.pdf) Specimen Anatomical Collection Method Collection Time Receive d Time (Source) Location / / Volume Laterality Varies 10/25/2019 11:52 10/25/2019 2:31 (Nasopharynx) AM CDT PM CDT Hansel Linton D.O. LAB MICROBIOLOGY - GENERAL O RDERABLES Performing Organization Address City/State/[facility] Code Phon e Number [facility] - [address] [place] [phone] [facility] [employer] [facility] [employer] [facility] [employer] [facility] [place] [place] [address] [facility] 200 [facility] documented in this encounter Visit Diagnoses Diagnosis Infection Upper Respiratory - Primary documented in this encounter Additional Health Concerns Infection Onset Date Last Indicated Resolved Time COVID19 Pending 10/25/2019 10/25/2019 10/26/2019 1:54 AM CDT Assessment Noted Time PHQ-9 Depression Total Score: 13 01/17/2019 8:17 AM CD T documented as of this encounter Care Teams Vessel Scrapper Relationship Specialty Start Date End Date Jerardo Streeter M.D. PCP - General 05/04/19 08/20/[address] [place] [address] documented as of this encounter
--- OUTSIDE RECORDS SUMMARY | 2022-02-09 07:05 | XMS_ITS | Encounter Summary ---
:1970 Author Organization [facility] Address [address] [place] [address] Care Team Providers Name Role Phone Jerardo Streeter M.D. Primary Care Provider Reason for Visit Reason Onset Date Comments Outpatient COVID-19 Testing 11/13/2019 Encounter Details Date Type Department Care Team Description 11/13/2019 External Outreach Department of Hansel Linton Infect ion [facility] Internal Medicine in J, D.O. Respiratory (Primary [place], [place] [address] Dx) [address] [place] [phone] Social History Tobacco Use Types Packs/Day [...] or relatives? How often do you attend episcopal or 1 to 4 times per year 11/21 sabianist services? Do you belong to any clubs or No 12/08/2018 organizations such as episcopal groups, unions, fraternal or athletic groups, or [...] documented as of this encounter Progress Notes Sonny Mead R.N. - 11/13/2019 3:33 PM CDT Encounter created for the drive-through COVID-19 testing. documented in this encounter Miscellaneous Notes Addendum Note - Sonny Tracy R.N. - 11/13/2019 3:33 PM CDT Addended by: SONNY TRACY on: 11/17/2019 04:09 PM Modules accepted: Orders documented in this encounter [...] documented as of this encounter Care Teams Molded Goods Embossing Press Operator Relationship Specialty Start Date End Date Jerardo Streeter M.D. PCP - General 05/04/19 08/20/20 [address] [place] [address] documented as of this encounter
--- OUTSIDE RECORDS SUMMARY | 2022-02-09 07:05 | XMS_ITS | Encounter Summary ---
:1970 Author Organization [facility] Address [address] [place] [address] Care Team Providers Name Role Phone Jerardo Streeter M.D. Primary Care Provider Encounter Details Date Type Department Care Team Description 02/26/2020 Orders Only [facility] PCP [facility] Jerardo Streeter S creening Mammogram M.D. Breast Cancer [address] [place] [address] Social History Tobacco Use Types Packs/Day Years [...] or relatives? How often do you attend uatsdin or 1 to 4 times per year 11/21 cheondoism services? Do you belong to any clubs or No 12/08/2018 organizations such as uatsdin groups, unions, fraternal or athletic groups, or [...] minutes do you engage in exercise at is 30 min 12/08/2018 level? Stress Answer [...] documented as of this encounter Care Teams Fabrication Operator Relationship Specialty Start Date End Date Jerardo Streeter M.D. PCP - General 05/04/19 08/20/20 [address] [place] [address] documented as of this encounter
--- OUTSIDE RECORDS SUMMARY | 2022-02-09 07:05 | XMS_ITS | Encounter Summary ---
:1970 Author Organization [facility] Address [address] [place] [address] Care Team Providers Name Role Phone Jerardo Streeter M.D. Primary Care Provider Encounter Details Date Type Department Care Team Description 05/27/2020 Orders Only [facility] PCP [facility]NT Jerardo Streeter S creening Examination Diabetes Mellitus; M.D. Screening Lipid [address] [place] [address] Social History Tobacco Use Types Packs/Day Years [...] or relatives? How often do you attend mandaeism or 1 to 4 times per year 11/21 restoration services? Do you belong to any clubs or No 12/08/2018 organizations such as mandaeism groups, unions, fraternal or athletic groups, or [...] documented as of this encounter Care Teams Software Applications Developer Relationship Specialty Start Date End Date Jerardo Streeter M.D. PCP - General 05/04/19 08/20/20 [address] [place] [address] documented as of this encounter
--- OUTSIDE RECORDS SUMMARY | 2022-02-09 07:05 | XMS_ITS | Encounter Summary ---
:1970 Author Organization [facility] Address [address] [place] [address] Care Team Providers Name Role Phone Jessica Schulz APRN, C.N.P., D.N.P. Primary Care Provider Encounter Details Date Type Department Care Team Description 01/17/2021 Immunization Department of Family Medicine, [facility], in [place], [place] [address] [place] [address] [facility] [phone] Social History Tobacco Use Types Packs/Day Years [...] or relatives? How often do you attend restorationism or 1 to 4 times per year 11/21 uatsdin services? Do you belong to any clubs or No 12/08/2018 organizations such as restorationism groups, unions, fraternal or athletic groups, or [...] documented as of this encounter Care Teams Enforcement Safety Officer Relationship Specialty Start Date End Date Jessica Schulz APRN, C.N.P., D.N.P. PCP - General 12/12/20 [address], [place] [address] documented as of this encounter
--- OUTSIDE RECORDS SUMMARY | 2022-02-09 07:06 | XMS_ITS | Encounter Summary ---
:1970 Author Organization [facility] Address [address] [place] [address] Care Team Providers Name Role Phone Rachel Gomez M.D. Primary Care Provider Unavailable Reason for Referral Outpatient (Routine) - Closed Specialty Diagnoses / Procedures Referred By Contact Refer red To Contact Radiation Oncology Diagnoses Brain MRI [facility] 03/28 Chance Lamas [facility] Procedures Office visit M.D. [address] [place] [id number] Referral ID Status Reason Start Date Expiration Date Visits Requ ested Visits Authorized [id number] Closed 02/07/2019 02/07/2020 1 1 TER HELPER Reason for Visit Outpatient (Routine) - Closed Specialty Diagnoses / Procedures Referred By Contact Refer red To Contact Radiation Oncology Diagnoses Brain MRI [facility] 03/28 Chance Lamas [facility] Procedures Office visit M.D. [address] [place] [id number] Referral ID Status Reason Start Date Expiration Date Visits Requ ested Visits Authorized [id number] Closed 02/07/2019 02/07/2020 1 1 Encounter Details Date Type Department Care Team Description 03/30/2019 Hospital Encounter Department of Chance Lamas Neoplasm Of Lung Lower Lobe Or Bronchus (HCC) (Primary Dx); Radiation Oncology [facility] Secondary Malignant Neoplasm Bone (HCC); in [place], [facility] 4th [facility] Secondary Malignant Neoplasm Brain (HCC) [place] [address] [facility] [address] [place], [place] [phone] (Work) [phone] Social History Tobacco Use Types Packs/Day Years [...] or relatives? How often do you attend buddhism or 1 to 4 times per year 11/21 mormonism services? Do you belong to any clubs or No 12/08/2018 organizations such as buddhism groups, unions, fraternal or athletic groups, or [...] or the highest technical, or vocational p [employer] degree you have received? Sex Assigned at Date Recorded Not on file documented as of this encounter Last Filed Vital Signs Vital Sign Reading Time Taken Comments Blood Pressure 120/80 03/30/2019 9:47 AM SHEETER HELPER Pulse 78 03/30/2019 9:47 AM SHEETER HELPER Temperature 36.3 ??C (97.3 ??F) 03/30/2019 9:47 AM SHEETER HELPER Respiratory Rate - - Oxygen Saturation - - Inhaled Oxygen Concentration - - Weight 109 kg (239 lb 6.7 oz) 03/30/2019 9:47 AM SHEETER HELPER Height - - Body Mass Index 39.24 03/28/2019 9:54 AM SHEETER HELPER documented in this encounter Medications at Time of Discharge Medication Sig Dispensed Refills Start Date End Date acetaminophen 325 mg as needed. 0 08/05/2015 capsule ALECENSA 150 mg capsule 0 03/03/2019 levonorgestrel (MIRENA) by intrauterine route. 0 01/26/2007 20 mcg/24 hours (5 yrs) 52 mg IUD documented as of this encounter Progress Notes Sarai Yoon P.A.-C., M.S. - 03/30/2019 10:00 AM CST SUBJECTIVE DIAGNOSIS 1. 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 Secondary Malignant Neoplasm Bone (HCC) 3. Secondary Malignant Neoplasm Brain (HCC) SUPERVISED BY: Chance Lamas M.D. ([id number]) HISTORY OF PRESENT ILLNESS Mrs. Debora Valdes is a 48-year-old female with metastatic lung cancer. Her oncologic history is as follows: 1. ??August 31, 2014: ??She is recovering from back pain. ??She also had some itching at that time. ??Because she was a smoker and the concern was that maybe she had a pneumonia because of a cough causing the back pain, a chest x-ray was done, this demonstrated a 3.1 x 2.6 cm right infrahilar opacity. 2. ??September 05 2014: ??CT scan of the chest was performed and demonstrated a 3.2- x 3.2 mass in the right lower lobe. ??There was no suspicious hilar or mediastinal adenopathy. ??Also noted was a 3-mm noncalcified nodule in the right middle lobe and a 10- x 6.4 mass in the left hepatic lobe. 3. ??September 07, 2014: ??MRI of brain was done and was negative. 4. ??September 11, 2014: ??PET-CT was done, this demonstrated a 3- x 2.6-cm mass in the right lower lobewith increased FDG uptake. ??There was a FDG avid right hilar node and seven carinal nodes noted consistent with metastasis. ??There was also a liver lesion noted, but that this was not FDG avid, and was thought unlikely to be metastatic. 5. ??September 12, 2014: ??She underwent flexible bronchoscopy with transbronchial ultrasound-guided needle biopsy by Dr. Whitaker, at station seven there was a 1 cm node that was sampled which was positive formetastatic adenocarcinoma. ??A low 11R node was identified and biopsied and demonstrated lymphoid tissue present with no evidence of malignancy. ??Mutational analysis demonstrated EGFR wild- type, ALK positive, ROS1 negative. ?? 6. ??September 13, 2014: ??MRI of the abdomen was done to evaluate liver lesion and demonstrated an 8-cmlesion in the left hepatic lobe that was noted to be a large benign cavernous hemangioma. ??Also noted was an additional cavernous hemangioma in the caudate and medial left hepatic lobe. 7. ??September 13, 2014: ??PFTs were performed and demonstrated a FEV1 of 3.04 L (102% predicted), adjusted DLCO was 96% predicted. 8. ??September 14 2014: ??She was evaluated by Thoracic Surgery (Dr. Wren). ??He recommended preoperative chemotherapy with radiation with 60 Gy followed by a restaging with PET-CT, and if no evidence of stage IV disease, to proceed with right lower lobectomy. 9. ??Given Mrs. Valdes ALK positivity, decision was made to pursue a trial of pazopanib therapy. ??She was seen by Dr. Quintero at [facility], and changed ALK communication to ALK positive rearrangement. ??She continued to receive pazopanib therapy for at least two months. ??Initially, she did have a response to lung lesion and size went from 3.6 x 2.8 to 2.9 x 1.9 cm. ??However, later she failed to demonstrate any response. ??Decision was made to transition management plan from pazopanib therapy to concurrent chemotherapy. 11. ??December 17, 2014 to January 25, 2015: ??She underwent concurrent chemotherapy and radiation therapy. ??She completed a total plan course of 6000 cGy in 30 fractions to the right lower lobe of the lung. ??She also underwent concurrent chemotherapy under the care of Dr. Quintero. ??She received her first cycle of cisplatin plus WORDPRESS DEVELOPER-16 from December 10 to December 17, her second cycle was from January 14 to January 21. ?? 12. ??March 04, 2015: ??CT chest demonstrated evolution of the right lower lobe large nodule with resolved central cavitation and measuring mildly decrease in AP diameter. ??There were also noted to be several small bilateral indeterminate pulmonary nodules. ??Also noted was a right infrahilar lymphnode and subcarinal lymph nodes measuring within normal limits. ?? 13. ??March 04, 2015: ??She was seen by Dr. Wren of Thoracic Surgery again who recommended to proceed with a surgical procedure. ?? 14. ??March 11, 2015: ??She underwent a flexible bronchoscopy with mediastinoscopy, right thoracotomy, and right lower lobectomy and mediastinal lymph node dissection. ??Pathology from this demonstrated left lower lobe tumor noted to be 2.7 x 2.4 x 2.0 cm invasive adenocarcinoma (acinar predominant). ??Histologic grade of moderately differentiated. ??Visceral pleural invasion was present. ??All margins were uninvolved by invasive and in situ carcinoma. ??Closest bronchial margin was by 4.5 cm. ??There was a no appreciable treatment effect. ??Lymphovascular invasion was indeterminate. ??Fragments of 2 lymph node sets from station 7 were positive. ?Pathological staging was pT2a, pN2. ?? 15. Postoperative adjuvant chemotherapy consisting of cisplatin and Alimta subsequently changed to carboplatin and Alimta due to GI side effects. ??She received a total of 4 cycles completed on July 23, 2015 at the [facility]. ??She was seen in Medical Oncology by Dr. Gonzáles in [place] on November 21, 2015 who discussed??continuation of crizotinib.?She did not receive additional systemic therapy.?She was subsequently lost to follow- up. ?? 16. January 11, 2019: ??MRI of the lumbar spine for evaluation of low back pain radiating to the leftleg demonstrated a new enhancing marrow replacing mass centered in the left aspect of the L4 vertebral body and also involving the left posterior elements. ??The mass is associated with mass effect upon the left lateral recess at L4-5 and moderate stenosis of the left L4-5 neural foramen. 17. January 24, 2019: ??PET-CT shows increased FDG activity in the L4 vertebral body lesion previously seen on the January 11, 2019 MRI. ??This is likely representing bony metastatic disease. ??There is a hypermetabolic soft tissue lesion in the left triceps musculature. ??This is suspicious for musculoskeletal metastasis. 18.??January 26, 2019: ??MRI of the brain in comparison to September 07, 2014 shows new punctate foci of enhancement in the right middle frontal gyrus and right lateral orbital gyrus compatible with metastases. ??An additional subtle focus of enhancement in the superior right frontal gyrus is indeterminate. 19.??January 27, 2019: ??Ultrasound guided biopsy of left upper extremity soft tissue mass was performed. ??On ultrasound there was a 1.9 x 2.3 x 5.6 cm mass located in the left anterolateral deltoid muscle at the level of the mid humerus. ??This lesion was originally described on the PET-CT from January 24, 2019 as being located in the left triceps musculature. ??The left triceps was completely scanned and contained no masses. ??Histologic exam was positive for malignancy. ??Involved by poorly differentiated adenocarcinoma consistent with the patient's known lung adenocarcinoma. ??ALK status is pending. 20.??January??2018: ??Electronic multi disciplinary input from Dr. Roper in Orthopedics who recommended proceeding with radiation therapy to the L4 lesion.?He did not feel surgery??at L4??was indicated at this time. ??The left upper extremity soft tissue mass could be excised if needed. ??Dr. Collazo??in Medical Oncology recommended starting Alectinib. 21.??January 30, 2019: ??Consultation with Dr. Yaritza Taylor in Medical Oncology at [facility] who ordered??Alectinib??and proceeding with radiation therapy to L4??and??repeat brain MRI 6 weeksafter she starts systemic therapy. ??If there is evidence of DATA REVIEWER progression consider gamma knife therapy. ??Observation of left upper extremity lesion as index to determine response to systemic therapy. ??Excision or radiation therapy could be considered if response is suboptimal. 22. Palliative radiotherapy to L3 through L5 initiated on February 02, 2019 and completed on February 08, 2019. Patient completed 5 fractions, receiving a total dose of 2000 cGy. 23. February 13, 2019: Alectinib initiated under the direction of Dr. Taylor. 24. March 28, 2019: MRI of the brain was read as demonstrating no intracranial metastases. Dr. Lamas reviewed the images which showed improvement in the previously seen presumed metastases. INTERVAL HISTORY The patient was seen and examined today with Dr. Lamas. The patient reports doing well overall. She rates her fatigue as 1/10 in severity. She reports improvement in her low back pain approximately two weeks after completing radiation treatment. She now denies pain in that area or any other new pain. She does have a bruised sensation of her low back that she feels is muscular in nature. She is not taking any pain medication. She denies numbness or tingling. She denies bowel or bladder incontinence. She denies headaches, nausea, vomiting, or focal numbness, tingling, or weakness. She is no longer able to palpate the lesion on her left arm. She is taking Alectinib four tablets twice daily. REVIEW OF SYSTEMS Review of systems was negative except as documented above. PATIENT REPORTED SYMPTOM SCREEN FATIGUE (Scale: 0 = no fatigue; 10 = worst fatigue you can imagine): 1 ?? PAIN (Scale: 0 = no pain; 10 = worst pain you can imagine): 0 ?? OVERALL QUALITY OF LIFE (Scale: 0 = as bad as can be; 10 = as good as can be): 9 OBJECTIVE BP 120/80 (BP Location: Right arm, Patient Position: Sitting, Cuff Size: Small) Pulse 78 Temp 36.3 ??C (Temporal) Wt 109 kg BMI 39.24 kg/m? PHYSICAL EXAM General: Patient is alert and oriented in no apparent distress. ASSESSMENT / PLAN #1 Stage IIIA (T2a, N2, M0)??ALK translocated??adenocarcinoma right lower lobe of lung #2 Crizotinib therapy for two months completed December 06, 2014, with slight decrease in size of right lower lobe lung mass #3 Concurrent cisplatin and WORDPRESS DEVELOPER 16 chemotherapy and definitive radiation therapy completed January 25, 2015 #4 Right lower lobectomy and mediastinal lymphadenectomy March 11, 2015 for pathologic stage T2a N2 adenocarcinoma #5 Postoperative adjuvant chemotherapy for 4 cycles completed July 23, 2015 #6??PET-CT??on January 24, 2019 showing??evidence of metastatic disease at L4 vertebral body and left??upper extremity muscle #7??At least 2 tiny brain metastases on January 26, 2019 brain MRI; improved on brain MRI from March 28, 2019 #8 Alectinib??initiated on February 13, 2019 under the care of [address]. Taylor #9 Radiation therapy to L3-5 initiated on February 02, 2019; completed February 08, 2019 The patient is doing well overall following radiation treatment. She has had resolution of pain in her low back. The left arm lesion is no longer palpable. The patient's recent MRI images and report was reviewed by Dr. Lamas today. The patient has no new or worrisome symptoms at this time. She will continue to take Alectinib as prescribed. The patient has follow-up with Dr. Taylor or another Medical Oncologist on of next week. She will continue to be followed long-term by Medical Oncology. She should continue to have regular brain MRIs performed. Dr. Lamas did discuss the potential for radiation treatment or Gamma Knife radiosurgery if needed in the future. We will not schedule a return visit here at this time. The patient was told to contact us with questions or concerns. She verbally expressed her understanding of the plan. ?? EDUCATION Ready to learn, no apparent learning barriers were identified; learning preferences include listening. Explained diagnosis and treatment plan; patient expressed understanding of the content. ?? Signed by: Sarai Yoon P.A.-C., M.S. 03/30/2019 10:14 AM [facility] [place] [address] TER HELPER Associated attestation - Chance Lamas M.D. - 03/30/2019 10:37 AM SHEETER HELPER I personally met with the patient and agree with the evaluation documented by Sarai Yoon P.A.-C. On examination, the patient appears in no distress. The skin of the back appears normal. I am unable to feel a mass in the left upper arm. I reviewed the MRI of the brain from March 28, 2019 on the computer monitor with the patient and compared to the previous brain MRI from January 26, 2019. The previously seen tiny enhancing lesions are smaller. Overall she appears to be responding to alectinib. She will need continued monitoring ofher brain. She will continue to follow-up with Dr. Taylor and return to see me on an as-needed basis. Time spent with patient was 10 minutes. Greater than 50% was spent in counseling. Chance Lamas MD [facility] Radiation Therapy [place], [place] documented in this encounter Miscellaneous Notes Addendum Note - Hemalatha Morales - 03/30/2019 10:00 AM SHEETER HELPER Encounter addended by: Hemalatha Morales on: 03/30/2019 3:13 PM Actions taken: Letter saved TER HELPER documented in this encounter Plan of Treatment Scheduled Referrals Name Type Priority Associated Order Schedule Diagnoses Radiation Oncology Outpatient Referral Routine On ce for 1 office visit Occurrences sta rting (clinic) 03/30/2019 unti l 03/30/2019 documented as of this encounter Visit Diagnoses Diagnosis Malignant Neoplasm Of Lower Lobe, Bronch us Or Lung Laterality Unknown (HCC) - Primary 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 PCP - General Family Medicine 12/04/18 1 07/04/18 documented as of this encounter
--- OUTSIDE RECORDS SUMMARY | 2022-02-09 07:06 | XMS_ITS | Encounter Summary ---
:1970 Author Organization [facility] Address [address] [place] [address] Care Team Providers Name Role Phone Rachel Gomez M.D. Primary Care Provider Unavailable Reason for Referral Outpatient (Routine) - Closed Specialty Diagnoses / Procedures Referred By Contact Refer red To Contact Diagnoses Secondary Malignant Neoplasm Soft Tissue (HCC) Chance Lamas M.D. [facility] Procedures US Soft Tissue Biopsy [address] [place] [address] Referral ID Status Reason Start Date Expiration Date Visits Requ ested Visits Authorized [id number] Closed 01/25/2019 01/25/2020 1 1 Reason for Visit Auth/Cert Specialty Diagnoses / Procedures Referred By Contact Refer red To Contact Diagnoses Secondary Malignant Neoplasm Soft Tissue (HCC) Procedures US SOFT TISSUE BIOPSY Referral ID Status Reason Start Date Expiration Date Visits Requ ested Visits Authorized [id number] 1 1 Encounter Details Date Type Department Care Team Description 01/27/2019 Hospital Encounter Department of Chance Lamas Malignant Radiology, Shaheed Shepherd M.D. Neoplasm Soft Tissue Building, in [address] [facility] (HCC) [facility] [address] [address] [facility] [phone] [place], [place] (Work) [phone] Social History Tobacco Use Types Packs/Day Years [...] or relatives? How often do you attend orthodox or 1 to 4 times per year 11/21 jew services? Do you belong to any clubs or No 12/08/2018 organizations such as orthodox groups, unions, fraPhotoblog or athletic groups, or school groups? How [...] on file documented as of this encounter Medications at Time of Discharge Medication Sig Dispensed Refills Start Date End Date acetaminophen 325 mg as needed. 0 08/05/2015 capsule levonorgestrel (MIRENA) by intrauterine 0 007 20 mcg/24 hours (5 yrs) route. 52 mg IUD gabapentin (NEURONTIN) Take 1 at bedtime for 3 days , then twice daily for 3 days, then 3 times daily for 3 days, then add at bedtime for 3 days, then add 1 more in a.m.. 270 capsule 3 01/17/2019 03/03/2019 300 mg capsule Do not increase if improved, or side effects ibuprofen Take 400 mg by mouth 0 11/2018 (ADVIL,MOTRIN) 200 mg every 4 (four) hours tablet as needed for pain. documented as of this encounter Plan of Treatment Not on filedocumented as of this encounter Procedures Procedure Name Priority Date/Time Associated Comments Diagnosis US SUPERFICIAL SOFT RAD - Routine 01/27/2019 10:58 Secondary Res ults for this TISSUE BIOPSY (most inpatients AM CDT Malignant procedure are in and all Neoplasm Soft the results outpatients) Tissue (HCC) section. CYTOLOGY FINE Routine 01/27/2019 10:19 Secondary Results fo r this NEEDLE ASPIRATION AM CDT Malignant procedure are in (INCLUDES CORE Neoplasm Soft the results BIOPSIES Tissue (HCC) section. documented in this encounter Results US Soft Tissue Biopsy (01/27/2019 10:58 AM CDT) Anatomical Region Laterality Modality Body, Ultrasound RST LOS, Musculoskeletal ARZ LOS, Ultrasoun d N/A Ultrasound ARZ LOS, Procedure FLA LOS, Abdominal FLA LOS Specimen (Source) Anatomical Collection Method Collection Time Re ceived Time Location / / Volume Laterality 01/27/2019 11:09 AM CDT Impressions 01/27/2019 11:27 AM CDT Ultrasound-guided left arm mass core needle biopsy. EP Narrative 01/27/2019 11:27 AM CDT EXAM: US SOFT TISSUE BIOPSY PRE-PROCEDURE: Patient seen, evaluated, and history reviewed. Discussed risks, benefits, alternatives for procedure, joy nobles obtained informed consent. Patient understands information and questions an swered. Immediately prior to starting the procedure, in the presence of the as sisting personnel, procedural pause was conducted to verify correct patient iden tity and verification of procedure to be performed, and as applicable, correct si de and site, correct patient position, availability of implants, special equipm ent, or special requirements, and all image and specimen identification data. The roles and responsibilities of care team members, residents, and fellows perla e discussed. TECHNIQUE: Sterile. 1% lidocaine for loc al anesthesia. Location: A heterogenously hypoechoic ma ss measuring 1.9 x 2.3 x 5.6 cm with some internal flow on Doppler imaging lo cated in the left anterolateral deltoid muscle at the level of the midhumerus. T his lesion was originally described on the PET scan from 01/24/2019 as being lo cated in the left triceps musculature, however the left tricep was completely s canned and contained no masses. Needle size: 18-gauge Number of passes: 6 passes with 18-gauge Biopince (two devices) which yielded minimal tissue, 10 passes with 18-gauge Bard which yielded solid full-length cores of white tissue. Complication: None. Blood loss: 1 to 75 ml PATIENT INSTRUCTIONS: Patient may be dis missed from the radiology department when dismissal criteria met. POST-PROCEDURE DIAGNOSIS: Status post le ft arm mass biopsy. Procedure Note Leona Red M.D. - 01/27/2019 EXAM: US SOFT TISSUE BIOPSY PRE-PROCEDURE: Patient seen, evaluated, and history reviewed. Discussed risks, benefits, alternatives for procedure, an giuliano obtained informed consent. Patient understands information and questions an swered. Immediately prior to starting the procedure, in the presence of the as sisting personnel, procedural pause was conducted to verify correct patient iden tity and verification of procedure to be performed, and as applicable, correct si de and site, correct patient position, availability of implants, special equipm ent, or special requirements, and all image and specimen identification data. The roles and responsibilities of care team members, residents, and fellows perla alberto discussed. TECHNIQUE: Sterile. 1% lidocaine for loc al anesthesia. Location: A heterogenously hypoechoic ma ss measuring 1.9 x 2.3 x 5.6 cm with some internal flow on Doppler imaging lo cated in the left anterolateral deltoid muscle at the level of the midhumerus. T his lesion was originally described on the PET scan from 01/24/2019 as being lo cated in the left triceps musculature, however the left tricep was completely s canned and contained no masses. Needle size: 18-gauge Number of passes: 6 passes with 18-gauge Biopince (two devices) which yielded minimal tissue, 10 passes with 18-gauge Bard which yielded solid full-length cores of white tissue. Complication: None. Blood loss: 1 to 75 ml PATIENT INSTRUCTIONS: Patient may be dis missed from the radiology department when dismissal criteria met. POST-PROCEDURE DIAGNOSIS: Status post le ft arm mass biopsy. IMPRESSION: Ultrasound-guided left arm mass core nee dle biopsy. EP Chance BUSTAMANTE US PROCEDURES (ABNORMAL) Cytology Fine Needle Aspiration (including core biopsies) (01/27/2019 10:19 AM CDT) Component Value Ref Test Analysis Performed Pathologis t Range Method Time At Signature Gross Description Received 16 alcohol-fixed smears and tissue. 01/30/2019 Additionally, received in formalin labeled with the 10:44 AM patient's name, medical record number and arm, left, left CDT arm mass are multiple pale [id number] soft tissue cores and fragments, ranging from 0.2-2.3 cm in length. Specimens are submitted en toto in cassette A1. Grossed by [employer]. (A) Disclaimer This test was developed and its performance characteri stics 01/30/2019 determined by [facility] in a manner consistent with CLIA 10:44 AM requirements. This test has not been cleared or approved by CDT the U.S. Food and Drug Administration. (A) Participated in [employer] 01/30/2019 evelia Gonsalez, 10:44 AM Interpretation Silva-Pathology CDT Resident (A) Source A. Soft Tissue, 01/30/2019 Left arm mass, 10:44 AM fine needle CDT aspiration (A) Report Jimi Johnson M.D., Ph.D. [id number] 01/31/20 19 electronically I verify that I have examined all relevant slides/ma terials 10:44 AM signed by for the specimen(s) and rendered or confirmed the diagnosis. CDT (A) (A) 01/30/2019 10:44 AM CDT Interpretation A. Soft Tissue, Left arm mass, fine needle aspiratio n 01/30/2019 (smears/core biopsy): Positive for malignancy. Involved by 10:44 AM poorly differentiated adenocarcinoma, consistent with the CDT patient's known lung adenocarcinoma. Immunostains performed on block A1 show diffuse and strong expression of AE1/AE3, Napsin A and TTF1 in the cells of interest, supporting the diagnosis. (A) Specimen (Source) Anatomical Collection Method Collection Time Re ceived Time Location / / Volume Laterality Tissue (Arm, 01/27/2019 10:19 Left) AM CDT Comment: AKA MUTATIONTEST ALSO NEEDED FO R TESTING Narrative This result has an attachment that is no t available. Chance Lamas M.D. LAB SURG PATH ORDERABLES Performing Organization Address City/State/ZIP Code Phon e Number [facility] - [address] [place], [place] [address] [facility] documented in this encounter Visit Diagnoses Diagnosis Secondary Malignant Neoplasm Soft Tissue (HCC) documented in this encounter Administered Medications Inactive Administered Medications - up to 3 most recent administrations Medication Order MAR Action Action Date Dose Rate Site lidocaine (PF) 10 mg/mL (1 %) Given 01/27/2019 10:38 AM CDT 10 m L injection (XYLOCAINE) Code/trauma/sedation medication, Starting on Wed01/27/19 at 1038 documented in this encounter Active and Recently Administered Medications Times are shown in CDT. PRN Medication Order 01/25/2019 01/26/2019 01/27/2019 lidocaine (PF) 10 mg/mL (1 %) injection (XYLOCAINE) (CANCELED) 1038 (Given - Provider: Leona Red M.D.) Code/trauma/sedation medication, Starting 01/27/19 at 1038 documented in this encounter Additional Health Concerns Assessment Noted Time PHQ-9 Depression Total Score: 13 01/17/2019 8:17 AM CD T documented as of this encounter Care Teams Junior Media Buyer Relationship Specialty Start Date End Date Rachel oGmez M.D. PCP - General Family Medicine 12/04/18 1 07/04/18 documented as of this encounter
--- OUTSIDE RECORDS SUMMARY | 2022-02-09 07:06 | XMS_ITS | Encounter Summary ---
:1970 Author Organization [facility] Address [address] [place] [address] Care Team Providers Name Role Phone Rachel Gomez M.D. Primary Care Provider Unavailable Reason for Referral Outpatient (Routine) - Closed Specialty Diagnoses / Procedures Referred By Contact Refer red To Contact Radiation Oncology Diagnoses Brain MRI Roch 03/28 Chance Lamas [facility] Procedures Office visit M.D. [address] [place] [address] Referral ID Status Reason Start Date Expiration Date Visits Requ ested Visits Authorized [id number] Closed 02/07/2019 02/07/2020 1 1 MRI/CAT/PET Scan (Routine) - Closed Specialty Diagnoses / Procedures Referred By Contact Refer red To Contact Radiology Diagnoses Secondary Malignant Neoplasm Brain (HCC) Chance Lamas M.D. [facility] Procedures MR Brain without and with IV Contrast [address] [place] [address] Referral ID Status Reason Start Date Expiration Date Visits Requ ested Visits Authorized [id number] Closed 02/07/2019 02/07/2020 1 1 Radiation Therapy (Routine) - Canceled Specialty Diagnoses / Procedures Referred By Contact Refer red To Contact Diagnoses Secondary Malignant Neoplasm Bone (HCC) Chance Lamas M.D. [facility] Procedures Management Visit [address] [place] [address] Referral ID Status Reason Start Date Expiration Date Visits V isits Requested Authorized [id number] Canceled 01/27/2019 01/27/2020 1 1 Reason for Visit Radiation Therapy (Routine) - Canceled Specialty Diagnoses / Procedures Referred By Contact Refer red To Contact Diagnoses Secondary Malignant Neoplasm Bone (HCC) Chnace Lamas M.D. [facility] Procedures Management Visit [address] [place] [address] Referral ID Status Reason Start Date Expiration Date Visits V isits Requested Authorized [id number] Canceled 01/27/2019 01/27/2020 1 1 Encounter Details Date Type Department Care Team Description 02/07/2019 Hospital Encounter Department of Chance Lamas Malignant Neoplasm Brain (HCC) (Primary Dx); Radiation Oncology Silva Shepherd Secondary Malignant Neoplasm Bone (HCC) in [place], [address] [facility] [place] [address] [facility] [address] [place], [place] [phone] (Work) [phone] Social History Tobacco Use Types Packs/Day Years [...] or relatives? How often do you attend scientology or 1 to 4 times per year 11/21 mosque services? Do you belong to any clubs or No 12/08/2018 organizations such as scientology groups, unions, fraternal or athletic groups, or [...] Sign Reading Time Taken Comments Blood Pressure 150/89 02/07/2019 8:15 AM CDT Pulse 88 02/07/2019 8:15 AM CDT Temperature 36 ??C (96.8 ??F) 02/07/2019 8:15 AM CDT Respiratory Rate - - Oxygen Saturation - - Inhaled Oxygen Concentration - - Weight 108 kg (238 lb 12.1 oz) 02/07/2019 8:15 AM CDT Height - - Body Mass Index 38.54 01/26/2019 8:12 AM CDT documented in this encounter Medications at Time [...] (four) hours tablet as needed for pain. oxyCODONE (ROXICODONE) Take 1 tablet (5 mg 20 tablet 0 01/2203/30/2019 5 mg immediate release total) by mouth tabletIndications: every 4 (four) hours Acute Pain Exception Indication: Acute Pain Exception. predniSONE (DELTASONE) Take 1 tablet (20 mg 5 tablet 1 03/201903/30/2019 20 mg tablet total) by mouth daily. documented as of this encounter Progress Notes Chance Lamas M.D. - 02/07/2019 8:15 AM CDT SUBJECTIVE REASON FOR VISIT Evaluation for side effects while receiving radiation treatment for 1. Secondary Malignant Neoplasm Bone (HCC) SUPERVISED BY: Chance Lamas M.D. ([id number]) HISTORY OF PRESENT ILLNESS Mrs. Debora Valdes is a 48-year-old female with metastatic lung cancer. She is currently receiving radiation therapy to L3-L5 to a dose of 2000 cGy in 5 fractions. She has received 4 of 5 fractions for a dose of 1000 cGy out of a planned total dose of 2000 cGy. Her anticipated date of completionis February 08, 2019. She will initiate Alectinib on Wednesday, February 13, 2019 under the care of Dr. Taylor. This 48 y.o. patient has the following significant history: 1. ??August 31, 2014: ??She is recovering [...] ??She was seen by Dr. Quintero at [facility], and changed ALK communication to ALK [...] received her first cycle of cisplatin plus DIRECTOR RIVER RESTORATION-16 from December 10 to December 17, her [...] completed on July 23, [address] [facility]. ??She was seen in Medical Oncology by Dr. Gonzáles in [place] on November 21, 2015 who discussed??continuation of [...] musculature. ??This is suspicious for musculoskeletal metastasis. 18. January 26, 2019: MRI of the brain in comparison to September 07, 2014 shows new punctate foci of enhancement in the right middle frontal gyrus and right lateral orbital gyrus compatible with metastases. An additional subtle focus of enhancement in the superior right frontal gyrus is indeterminate. 19. January 27, 2019: Ultrasound guided biopsy of left upper extremity soft tissue mass was performed. On ultrasound there was a 1.9 x 2.3 x 5.6 cm mass located in the left anterolateral deltoid muscle at the level of the mid humerus. This lesion was originally described on the PET-CT from January 24, 2019 as being located in the left triceps musculature. The left triceps was completely scanned andcontained no masses. Histologic exam was positive for malignancy. Involved by poorly differentiated adenocarcinoma consistent with the patient's known lung adenocarcinoma. ALK status is pending. 20. January 262018: Electronic multi disciplinary input from Dr. Roper in Orthopedics who recommended proceeding with radiation therapy to the L4 lesion. He did not feel surgery at L4 was indicatedat this time. The left upper extremity soft tissue mass could be excised if needed. Dr. Collazo in Medical Oncology recommended starting Alectinib. 21. January 30, 2019: Consultation with Dr. Yaritza Taylor in Medical Oncology at [facility] who ordered Alectinib and proceeding with radiation therapy to L4 and repeat brain MRI 6 weeks after she starts systemic therapy. If there is evidence of MOBILE UI DEVELOPER progression consider gamma knife therapy. Observation of left upper extremity lesion as index to determine response to systemic therapy. Excisionor radiation therapy could be considered if response is suboptimal. 22. Palliative radiotherapy to L3 through L5 initiated on February 02, 2019 and anticipated to complete on February 08, 2019. Patient to complete 5 fractions, receiving a total dose of 2000 cGy. 23. February 13, 2019: Anticipated date of starting Alectinib under the direction of Dr. Taylor. The patient's case was discussed today with Dr. Lamas. Patient reports that she took 5 mg of Oxycodone every 4 hours for 3 doses on Wednesday and has not needed any Oxycodone since. She is managing her pain now with alternating Ibuprofen and Tylenol every 4 hours as well as scheduled Gabapentin 600 mg three times a day. She took prednisone 20 mg a day for 5 days which she completed yesterday. She rates her pain at a 3-4 out of 10. She localizes her pain to the left lower lumbar region and states that the pain goes into the left hip as well as left knee pain. She describes both of these areas as achy. She is also reports left rodarte pain that she describes as burning. She denies urinary or bowel changes, nausea, vomiting, hematuria, rectal bleeding, fevers or chills. Patient is inquiring on what are the next steps if no pain relief is noted 2 weeks post radiation therapy. PATIENT REPORTED SYMPTOM SCREEN FATIGUE (Scale: 0 = no fatigue; 10 = worst fatigue you can imagine): 4 ?? PAIN (Scale: 0 = no pain; 10 = worst pain you can imagine): 3-4 ?? OVERALL QUALITY OF LIFE (Scale: 0 = as bad as can be; 10 = as good as can be): 5 OBJECTIVE BP 150/89 (BP Location: Right arm, Patient Position: Sitting, Cuff Size: Large) Pulse 88 Temp 36??C (Temporal) Wt 108 kg BMI 38.54 kg/m? PHYSICAL EXAM General: Alert and oriented in no apparent distress. ASSESSMENT / PLAN #1 Stage IIIA (T2a, N2, M0)??ALK translocated??adenocarcinoma right lower lobe of lung #2 Crizotinib therapy for two months completed December 06, 2014, with slight decrease in size of right lower lobe lung mass #3 Concurrent cisplatin and DIRECTOR RIVER RESTORATION 16 chemotherapy and definitive radiation therapy completed January 25, 2015 #4 Right lower lobectomy and mediastinal lymphadenectomy March 11, 2015 for pathologic stage T2a N2 adenocarcinoma #5 Postoperative adjuvant chemotherapy for 4 cycles completed July 23, 2015 #6??PET-CT on January 24, 2019 showing evidence of metastatic disease at L4 vertebral body and leftupper extremity muscle #7 At least 2 tiny brain metastases on January 26, 2019 brain MRI. Follow-up brain MRI 6 weeks following initiation of systemic therapy planned #[address] Taylor with anticipated date of starting on February 13, 2019 #9 Radiation therapy to L3-5 initiated on February 02, 2019; anticipated completion on February 08, 2019 Patient is tolerating radiation therapy well overall. Dr. Lamas discussed with patient that if she does not notice improvement in her pain after two weeks post completion of radiotherapy, the next step would be to rediscuss potential surgery as an option. Patient is scheduled to begin Alectinib this coming Wednesday. Dr. Taylor will see her in follow up on March 06. Dr. Lamas has ordered for repeat brain MRI in [place] 6 weeks after initiation of Alectinib which will be around March 27, 2019. Dr. Lamas will then review the results with her in a return visit on approximately March 30, 2019. She has our contact information if needed. She will contact us with any questions or concerns. We willcontinue with radiation treatment as planned. Signed by: Alida Ibrahim R.N. 02/07/2019 3:18 PM I personally met with the patient and agree with the evaluation documented by Alida Ibrahim RN. On examination, the patient appears in no distress. I discussed the plans for her follow-up brain MRI. Chance Lamas MD [facility] Radiation Therapy [place], [place] documented in this encounter Miscellaneous Notes Addendum Note - Hemalatha Morales - 02/07/2019 8:15 AM CDT Encounter addended by: Hemalatha Morales on: 02/07/2019 11:05 AM Actions taken: Letter saved documented in this encounter Plan of Treatment Scheduled Orders Name Type Priority Associated Diagnoses Order S chedule Management Visit Radiation Oncology Routine Secondary Malignan t Once for 1 Neoplasm Bone (HCC) Occurren brandi starting 02/07/2019 unti l 02/07/2019 Scheduled Referrals Name Type Priority Associated Diagnoses Order S chedule Radiation Oncology Outpatient Referral Routine Ex pected: office visit 03/30/2019 (clinic) (Approximate), Expires: 02/07/2022 documented as of this encounter Results MR Brain without and with IV Contrast (03/28/2019 11:00 AM BALLISTICS PROFESSOR) Anatomical Region Laterality Modality Head, Brain, Neuroradiology RST LOS, Neuroradiology ARZ N/A Magnetic Resonance LOS, Neuroradiology FLA [facility] Specimen (Source) Anatomical Collection Method Collection Time Re ceived Time Location / / Volume Laterality 03/28/2019 1:02 PM BALLISTICS PROFESSOR Impressions 03/28/2019 1:13 PM BALLISTICS PROFESSOR No intracranial metastases. Narrative 03/28/2019 1:13 PM BALLISTICS PROFESSOR EXAM: MR BRAIN WITHOUT AND WITH IV CONTRAST COMPARISON: 09/07/14 FINDINGS: No focal mass, mass effect or abnormal enhancement to suggest intracranial metastases. Single punctate focus FLAIR hyperintensity left frontal subcortical white matter of doubtful cli nical significance. Mild scattered paranasal sinus mucosal thickening. Procedure Note Doanld Meeks M.D., M.B.A. - 03/28/2019 EXAM: MR BRAIN WITHOUT AND WITH IV CONTR AST COMPARISON: 09/07/14 FINDINGS: No focal mass, mass effect or abnormal enhancement to suggest intracranial metastases. Single punctate focus FLAIR hyperintensity left frontal subcortical white matter of doubtful cli nical significance. Mild scattered paranasal sinus mucosal thickening. IMPRESSION: No intracranial metastases. Chance Lamas M.D. 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 PCP - General Family Medicine 12/04/18 1 07/04/18 documented as of this encounter
--- OUTSIDE RECORDS SUMMARY | 2022-02-09 07:06 | XMS_ITS | Encounter Summary ---
:1970 Author Organization [facility] Address [address] [place] [address] Care Team Providers Name Role Phone Rachel Gomez M.D. 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 [facility] Procedures MR Brain without and with IV Contrast [address] [place] [address] Referral ID Status Reason Start Date Expiration Date Visits Requ ested Visits Authorized [id number] Closed 01/25/2019 01/25/2020 1 1 Outpatient (Routine) - Closed Specialty Diagnoses / Procedures Referred By Contact Refer red To Contact Radiation Oncology Diagnoses PAR REVIEW Chance Lamas M.D. [facility] Procedures ANTON EST [address] [place] [address] Referral ID Status Reason Start Date Expiration Date Visits Requ ested Visits Authorized [id number] Closed 01/25/2019 01/25/2020 1 1 Outpatient (Routine) - Closed Specialty Diagnoses / Procedures Referred By Contact Refer red To Contact Diagnoses Secondary Malignant Neoplasm Soft Tissue (HCC) Chance Lamas M.D. [facility] Procedures US Soft Tissue Biopsy [address] [place] [address] Referral ID Status Reason Start Date Expiration Date Visits Requ ested Visits Authorized [id number] Closed 01/25/2019 01/25/2020 1 1 Outpatient (Routine) - Closed Specialty Diagnoses / Procedures Referred By Contact Refer red To Contact Radiation Oncology Diagnoses Chance Stearns M.D. [facility] [address] [place] [address] Referral ID Status Reason Start Date Expiration Date Visits Requ ested Visits Authorized [id number] Closed 01/24/2019 01/24/2020 1 1 Reason for Visit Outpatient (Routine) - Closed Specialty Diagnoses / Procedures Referred By Contact Refer red To Contact Radiation Oncology Diagnoses PAR Chance Lamas M.D. [facility] [address] [place] [address] Referral ID Status Reason Start Date Expiration Date Visits Requ ested Visits Authorized [id number] Closed 01/24/2019 01/24/2020 1 1 Encounter Details Date Type Department Care Team Description 01/25/2019 Hospital Encounter Department of Chance Lamas Malignant Neoplasm Bone (HCC) (Primary Dx); Radiation Oncology Silva Shepherd Secondary Malignant Neoplasm Soft Tissue (HCC); in [place] [address] [address] [facility] Malignant Neoplasm Of Lung Lower Lobe Or Bronchus Right (HCC) [place] [address] [facility] [address] [place], [place] [phone] (Work) [phone] Social History Tobacco Use Types Packs/Day Years [...] 1 to 4 times per year 11/21 confucianism services? Do you belong to any clubs [...] Sign Reading Time Taken Comments Blood Pressure 148/88 01/25/2019 1:47 PM CDT Pulse 103 01/25/2019 1:47 PM CDT Temperature 36 ??C (96.8 ??F) 01/25/2019 1:47 PM CDT Respiratory Rate - - Oxygen Saturation - - Inhaled Oxygen Concentration - - Weight 109 kg (239 lb 3.2 oz) 01/25/2019 1:47 PM CDT Height 163 cm (5' 4.17) 01/25/2019 1:47 PM CDT Body Mass Index 40.84 01/25/2019 1:47 PM CDT documented in this encounter Medications at [...] for pain. documented as of this encounter Consult Notes Chance Lamas M.D. - 01/25/2019 3:28 PM CDT PATIENT NAME: Debora Valdes [facility] #: [id number] Address: [address] [place] [address] [place] [address] Age: 48 y.o. Date of Service: 01/25/19 Provider: Chance Lamas M.D. Place of Service: [facility] Radiation Oncology [address] [place] [id number] REQUESTING PROVIDER Chance Lamas M.D. 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 Diagnoses of Secondary Malignant Neoplasm Soft Tissue (HCC) and Malignant Neoplasm Of Lung Lower Lobe Or Bronchus Right (HCC) were also pertinent to this visit. HISTORY OF PRESENT ILLNESS This 48 y.o. patient has the following significant history: 1. August 31, 2014: She is recovering from back pain. She also had some itching at that time. Becauseshe was a smoker and the concern was that maybe she had a pneumonia because of a cough causing the back pain, a chest x-ray was done, this demonstrated a 3.1 x 2.6 cm right infrahilar opacity. 2. September 05 2014: CT scan of the chest was performed and demonstrated a 3.2- x 3.2 mass in the rightlower lobe. There was no suspicious hilar or mediastinal adenopathy. Also noted was a 3-mm noncalcified nodule in the right middle lobe and a 10- x 6.4 mass in the left hepatic lobe. 3. September 07, 2014: MRI of brain was done and was negative. 4. September 11, 2014: PET-CT was done, this demonstrated a 3- x 2.6-cm mass in the right lower lobe with increased FDG uptake. There was a FDG avid right hilar node and seven carinal nodes noted consistent with metastasis. There was also a liver lesion noted, but that this was not FDG avid, and was thought unlikely to be metastatic. 5. September 12, 2014: She underwent flexible bronchoscopy with transbronchial ultrasound-guided needle biopsy by Dr. Whitaker, at station seven there was a 1 cm node that was sampled which was positive for metastatic adenocarcinoma. A low 11R node was identified and biopsied and demonstrated lymphoid tissue present with no evidence of malignancy. Mutational analysis demonstrated EGFR wild-type, ALK positive,ROS1 negative. 6. September 13, 2014: MRI of the abdomen was done to evaluate liver lesion and demonstrated an 8-cm lesion in the left hepatic lobe that was noted to be a large benign cavernous hemangioma. Also noted jose maria additional cavernous hemangioma in the caudate and medial left hepatic lobe. 7. September 13, 2014: PFTs were performed and demonstrated a FEV1 of 3.04 L (102% predicted), adjusted DLCO was 96% predicted. 8. September 14 2014: She was evaluated by Thoracic Surgery (Dr. Wren). He recommended preoperative chemotherapy with radiation with 60 Gy followed by a restaging with PET-CT, and if no evidence of stage IV disease, to proceed with right lower lobectomy. 9. Given Mrs. Valdes ALK positivity, decision was made to pursue a trial of pazopanib therapy. She was seen by Dr. Quintero at [facility], and changed ALK communication to ALK positive rearrangement. She continued to receive pazopanib therapy for at least two months. Initially, she did have a re sponse to lung lesion and size went from 3.6 x 2.8 to 2.9 x 1.9 cm. However, later she failed to demonstrate any response. Decision was made to transition management plan from pazopanib therapy to concurrent chemotherapy. 11. December 17, 2014 to January 25, 2015: She underwent concurrent chemotherapy and radiation therapy.She completed a total plan course of 6000 cGy in 30 fractions to the right lower lobe of the lung. She also underwent concurrent chemotherapy under the care of Dr. Quintero. She received her first cycle of cisplatin plus WHIPPED TOPPING SUPERVISOR-16 from December 10 to December 17, her second cycle was from January 14 to January 21. 12. March 04, 2015: CT chest demonstrated evolution of the right lower lobe large nodule with resolved central cavitation and measuring mildly decrease in AP diameter. There were also noted to be several small bilateral indeterminate pulmonary nodules. Also noted was a right infrahilar lymph node and subcarinal lymph nodes measuring within normal limits. 13. March 04, 2015: She was seen by Dr. Wren of Thoracic Surgery again who recommended to proceed with a surgical procedure. 14. March 11, 2015: She underwent a flexible bronchoscopy with mediastinoscopy, right thoracotomy,and right lower lobectomy and mediastinal lymph node dissection. Pathology from this demonstrated left lower lobe tumor noted to be 2.7 x 2.4 x 2.0 cm invasive adenocarcinoma (acinar predominant). Histologic grade of moderately differentiated. Visceral pleural invasion was present. All margins were uninvolved by invasive and in situ carcinoma. Closest bronchial margin was by 4.5 cm. There was a no appreciable treatment effect. Lymphovascular invasion was indeterminate. Fragments of 2 lymph node setsfrom station 7 were positive. Pathological staging was pT2a, pN2. 15. Postoperative adjuvant chemotherapy consisting of cisplatin and Alimta subsequently changed to carboplatin and Alimta due to GI side effects. She received a total of 4 cycles completed on July 23, 2015 at the [facility]. She was seen in Medical Oncology by Dr. Gonzáles in [facility] on November 21, 2015 who discussed continuation of crizotinib. She did not receive additional systemic therapy. She was subsequently lost to follow-up. 16. January 11, 2019: MRI of the lumbar spine for evaluation of low back pain radiating to the left leg demonstrated a new enhancing marrow replacing mass centered in the left aspect of the L4 vertebralbody and also involving the left posterior elements. The mass is associated with mass effect upon the left lateral recess at L4-5 and moderate stenosis of the left L4-5 neural foramen. 17. January 24, 2019: PET-CT shows increased FDG activity in the L4 vertebral body lesion previously seen on the January 11, 2019 MRI. This is likely representing bony metastatic disease. There is a hypermetabolic soft tissue lesion in the left triceps musculature. This is suspicious for musculoskeletal metastasis. This patient receive radiation therapy in our department in 2014. She subsequently underwent surgeryand postoperative adjuvant chemotherapy as indicated above. She had no oncologic follow-up. On December 12, [address] Gomez in [place] for low back pain that has been intermittent for 1 year. In the previous 2-3 weeks she had episodes of pain shooting down the back of her left leg to the top of her foot in an L4 dermatome distribution. It was associated with numbness intermittently. She denied any weakness. She was treated with a Medrol Dosepak with resolution of her pain. One or 2 days after completing the steroids, her pain came back. It was located in the low back with radiating pain into her left leg to her foot. She describes the radiating pain as a burning sensation. Her pain is worse with prolonged walking and better if she sits. She took Tylenol 1000 mg twice a day or ibuprofen 400 mgtwice a day with improvement. An x-ray of the lumbar spine on December 27, 2018 showed mild degenerative changes. MRI of the lumbar spine on January 11, 2019 showed a enhancing mass in the L4 vertebral body. On January 17, 2019 she was given prescriptions for tramadol and gabapentin. She has not taken tramadol. She currently is on gabapentin 300 mg t.i.d.. This along with ibuprofen or Tylenol is giving her pain relief. Ibuprofen seems to work better than Tylenol. She had a PET-CT on January 24, 2019 with the above findings. I was asked to see this patient by Dr. Gomez for consideration of further therapy. She is here with her significant other, Jagjit. REVIEW OF SYSTEMS COMMISSIONER OF OFFICIALS: She denies headache or focal motor or sensory problems. Pulmonary: She denies cough or shortness of breath. Cardiac: She denies angina or palpitations. GI: She denies dysphagia, abdominal pain, melena, or hematochezia. : She denies dysuria or hematuria. Musculoskeletal: She bumped her left upper arm biceps area recently and since then has noticed a tender lump in the area. She denies any other bone pain. ECOG performance status: 1 PATIENT REPORTED SYMPTOM SCREEN: ?? FATIGUE (Scale: 0 = no fatigue; 10 = worst fatigue you can imagine): 1 ?? PAIN (Scale: 0 = no pain; 10 = worst pain you can imagine): 2-3 ?? OVERALL QUALITY OF LIFE (Scale: 0 = as bad as can be; 10 = as good as can be): 9 PAST MEDICAL HISTORY PRIOR SURGERIES: 1. Dental extraction of upper teeth. 2. Right lower lobectomy and mediastinal lymphadenectomy March 11, 2015 PAST MEDICAL HISTORY: 1. History of urinary tract infections 2. Depression 3. Lung cancer. FAMILY HISTORY Her father of lung cancer. Her paternal grandfather had lung cancer. SOCIAL HISTORY She works at [employer] in [place]. She smoked cigarettes for 20 years 1 pack per day and quit in 2014. She drinks alcohol occasionally. She is . PHYSICAL EXAM BP 148/88 (BP Location: Left arm, Patient Position: Sitting, Cuff Size: Large) Pulse 103 Temp 36??C (Temporal) Ht 163 cm Wt 109 kg BMI 40.84 kg/m?? Neck: No neck masses. Lymphatic: No cervical, supraclavicular, or axillary adenopathy. Heart: Normal S1 and S2 with no murmurs. Lungs: Clear to auscultation. Abdomen: Soft and nontender with no masses. Musculoskeletal: There is tenderness with palpation of the region of the L4 spinous process just theleft of the midline. I am unable to feel a mass in the region of the left triceps muscle. Neurologic exam: Cranial nerves 2-12 are intact. Strength is 5+ throughout. Sensation is normal throughout. Reflexes are normal: biceps, knee jerk and ankle jerk. 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 #2 Crizotinib therapy for two months completed December 06, 2014, with slight decrease in size of right lower lobe lung mass #3 Concurrent cisplatin and WHIPPED TOPPING SUPERVISOR 16 chemotherapy and definitive radiation therapy completed January 25, 2015 #4 Right lower lobectomy and mediastinal lymphadenectomy March 11, 2015 for pathologic stage T2a N2 adenocarcinoma #5 Postoperative adjuvant chemotherapy for 4 cycles completed July 23, 2015 #6 PET-CT evidence of metastatic disease at L4 vertebral body and left triceps muscle I reviewed the PET-CT from January 24, 2019 and the MRI of the lumbar spine from January 11, 2019 onthe computer monitor with the patient and her significant other. I explained that these have the appearance of metastatic disease, most likely from her previous lung cancer. It is possible that this could represent a different type of cancer. I have reviewed the case with Dr. Ortega and Dr. Dubois. I recommend we start with ultrasound-guided biopsy of the left triceps mass along with brain MRI. In the meantime I will seek multi disciplinary input regarding further management. If this is oligometastatic lung cancer, options were discussed including systemic therapy, conventional radiation, stereotactic body radiation, and surgery. The patient had questions that were answered. She will have her brain MRI and ultrasound guided biopsy later this week. I will see her back next week to review the results. EDUCATION Ready to learn, no apparent learning barriers were identified; learning preferences include listening. Explained diagnosis and treatment plan; patient expressed understanding of the content. I spent 50 minutes with the patient, greater than 50% was spent counseling. Signed by: Chance Lamas M.D. 01/25/2019 3:28 PM [facility] [address] [place] [id number] FAX: [phone] * documented in this encounter Plan of Treatment Scheduled Referrals Name Type Priority Associated Order Schedule Diagnoses Radiation Oncology Outpatient Referral Routine On ce for 1 office visit Occurrences sta rting (clinic) 01/25/2019 unti l 01/25/2019 Radiation Oncology Outpatient Referral Routine Ex pected: 01/25/2019 office visit (Approximate), (clinic) Expires: 2021 documented as of this encounter Results US Soft Tissue Biopsy [...] Discussed risks, benefits, alternatives for procedure, an d obtained informed consent. Patient understands information and [...] Discussed risks, benefits, alternatives for procedure, an d obtained informed consent. Patient understands information and [...] mass core nee dle biopsy. EP Chance Lamas M.D. IMG US PROCEDURES MR Brain without and with IV Contrast (01/26/2019 9:30 AM CDT) Anatomical Region Laterality Modality Head, Brain, Neuroradiology RST LOS, Neuroradiology ARZ N/A Magnetic Resonance LOS, Neuroradiology FLA LOS Specimen (Source) Anatomical Collection Method Collection Time Re ceived Time Location / / Volume Laterality 01/26/2019 9:53 AM CDT Impressions 01/26/2019 10:53 AM CDT 1. ??New punctate presumed metastases wi thin the right middle frontal gyrus and right lateral orbital gyrus. 2. ??Additional focus of enhancement ass ociated with the superior right frontal gyrus is indeterminant but may potential ly be vascular in etiology (please see discussion the findings section of this report). Narrative 01/26/2019 10:53 AM CDT EXAM: MR BRAIN WITHOUT AND WITH IV CONTRAST COMPARISON: 09/07/2014 MR brain. PET/CT 01/24/2019. FINDINGS: New punctate focus of enhancem ent in the right middle frontal gyrus and right lateral orbital gyrus (series 101 image 60, image 40 respectively) are compatible with metastases given clinica l history. No evidence of associated catalina more edema. Additional subtle focu s of enhancement in the superior right frontal gyrus (series 101 image 75) is i ndeterminate. Given somewhat linear morphology on sagittal reformats (series 9 image 97-98) this may potentially be vascular in etiology, however metastasis cannot be entirely excluded. No definite correlate on prior MR, although this could have been due to slice selection given small size and differenc es in technique. No additional significant interval rosa e. Few nonenhancing punctate foci of T2 signal in the cerebral white matter, inc reased in conspicuity from prior which may be technical, likely representing mi nimal leukoaraiosis. No abnormal intracranial hemosiderin deposition on g radient images. Normal intracranial vascular flow voids. Polypoid mucosal th ickening left maxillary sinus. Procedure Note Kolton Preston M.D. - 9 EXAM: MR BRAIN WITHOUT AND WITH IV CONTR AST COMPARISON: 09/07/2014 MR brain. PET/CT 01/24/2019. FINDINGS: New punctate focus of enhancem ent in the right middle frontal gyrus and right lateral orbital gyrus (series 101 image 60, image 40 respectively) are compatible with metastases given clinica l history. No evidence of associated catalina more edema. Additional subtle focu s of enhancement in the superior right frontal gyrus (series 101 image 75) is i ndeterminate. Given somewhat linear morphology on sagittal reformats (series 9 image 97-98) this may potentially be vascular in etiology, however metastasis cannot be entirely excluded. No definite correlate on prior MR, although this could have been due to slice selection given small size and differenc es in technique. No additional significant interval rosa e. Few nonenhancing punctate foci of T2 signal in the cerebral white matter, inc reased in conspicuity from prior which may be technical, likely representing mi nimal leukoaraiosis. No abnormal intracranial hemosiderin deposition on g radient images. Normal intracranial vascular flow voids. Polypoid mucosal th ickening left maxillary sinus. IMPRESSION: 1. New punctate presumed metastases with in the right middle frontal gyrus and right lateral orbital gyrus. 2. Additional focus of enhancement assoc iated with the superior right frontal gyrus is indeterminant but may potential ly be vascular in etiology (please see discussion the findings section of this report). Chance BUSTAMANTE MRI PROCEDURES documented in this encounter Visit Diagnoses Diagnosis Secondary Malignant Neoplasm Bone (HCC) - Primary Secondary Malignant Neoplasm Soft Tissue (HCC) Malignant Neoplasm Of Lung Lower Lobe Or Bronchus Right (HCC) Malignant Neoplasm Of Lung Lower Lobe Or Bronchus Right (HCC) Secondary Malignant Neoplasm Soft Tissue (HCC) documented in this encounter Additional Health Concerns Assessment Noted Time PHQ-9 Depression Total Score: 13 01/17/2019 8:17 AM CD T documented as of this encounter Care Teams Warehouse General Laborer Relationship Specialty Start Date End Date Rachel Gomez M.D. PCP - General Family Medicine 12/04/18 1 07/04/18 documented as of this encounter
--- OUTSIDE RECORDS SUMMARY | 2022-02-09 07:06 | XMS_ITS | Encounter Summary ---
:1970 Author Organization [facility] Address [address] [place] [address] Care Team Providers Name Role Phone Rachel Gomez M.D. Primary Care Provider Unavailable Encounter Details Date Type Department Care Team Description 02/07/2019 Hospital Encounter Department of Radiation Gracia Lamas, Oncology in [place] [address] [phone] (Wo rk) [id number] [phone] Social History Tobacco Use Types Packs/Day Years [...] or relatives? How often do you attend yazidism or 1 to 4 times per year 11/21 hinduism services? Do you belong to any clubs or No 12/08/2018 organizations such as yazidism groups, unions, fraternal or athletic groups, or [...] or the highest technical, or vocational p [facility] degree you have received? Sex Assigned at [...] mouth daily. documented as of this encounter Plan of Treatment Not on filedocumented as of this encounter Visit Diagnoses Not on filedocumented in this encounter Additional Health Concerns Assessment Noted Time PHQ-9 Depression Total Score: 13 01/17/2019 8:17 AM CD T documented as of this encounter Care Teams Oxidized Finish Plater Relationship Specialty Start Date End Date Rachel Gomez M.D. PCP - General Family Medicine 12/04/18 1 07/04/18 documented as of this encounter
--- OUTSIDE RECORDS SUMMARY | 2022-02-09 07:06 | XMS_ITS | Encounter Summary ---
:1970 Author Organization [facility] Address [address] [place] [address] Care Team Providers Name Role Phone Rachel Gomez M.D. Primary Care Provider Unavailable Encounter Details Date Type Department Care Team Description 02/02/2019 Orders Only Department of Oncology Yasmine Taylor Ma lignant Neoplasm Of in Jose Carmona M.D. Lung Lower Lobe Or [place] [address] Bronchus (HCC) (Primary [address] [place], [place] Dx) [place] [id number] [phone] Social History Tobacco Use Types Packs/Day Years [...] Or Lung Laterality Unknown (HCC) - Primary documented in this encounter Additional Health Concerns Assessment Noted Time PHQ-9 Depression Total Score: 13 01/17/2019 8:17 AM CD T documented as of this encounter Care Teams Benefit Specialist Relationship Specialty Start Date End Date Rachel Gomez M.D. PCP - General Family Medicine 12/04/18 1 07/04/18 documented as of this encounter
--- OUTSIDE RECORDS SUMMARY | 2022-02-09 07:06 | XMS_ITS | Encounter Summary ---
:1970 Author Organization [facility] Address [address] [place] [address] Care Team Providers Name Role Phone Rachel Gomez M.D. Primary Care Provider Unavailable Encounter Details Date Type Department Care Team Description 04/10/2019 Orders Only [facility] Rachel Gomez, Screening Examination Diabetes Mellitus; M.DEvette Screening Lipid Social History Tobacco Use Types Packs/Day Years [...] or relatives? How often do you attend sabianism or 1 to 4 times per year 11/21 presybeterian services? Do you belong to any clubs or No 12/08/2018 organizations such as sabianism groups, unions, fraternal or athletic groups, or [...] documented as of this encounter Care Teams Ice Cream Freezer Relationship Specialty Start Date End Date Rachel Gomez M.D. PCP - General Family Medicine 12/04/18 1 07/04/18 documented as of this encounter
--- OUTSIDE RECORDS SUMMARY | 2022-02-09 07:06 | XMS_ITS | Encounter Summary ---
:1970 Author Organization [facility] Address [address] [place] [address] Care Team Providers Name Role Phone Rachel Gomez M.D. 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 How often do you attend pentecostal or 1 to 4 times per year 11/21 quaker services? Do you belong to any clubs or No 12/08/2018 organizations such as pentecostal groups, unions, fraternal or athletic groups, or [...] Progress Notes Sarai Yoon P.A.-C., M.S. - 02/08/2019 8:00 AM CDT DIAGNOSIS: 1. 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 Secondary Malignant Neoplasm Bone (HCC) Attending Physician: Chance Lamas M.D. ([id number]) Treatment Intent: Palliative Concomitant Therapy: None Treatment Dates: February 02, 2019 - February 08, 2019 Single Plan Course Summary 02/08/2019 Plan ID [id number] L3-5 Spine First treatment 02/02/2019 13:17 CDT Last treatment 02/08/2019 08:11 CDT Fractions treated to date 5 Planned total fractions 5 Dosage given to date cGy 1999 Planned dose in cGy 1999 CLINICAL SUMMARY Mrs. Debora Valdes completed radiation treatment as planned without interruptions. The course of treatment was tolerated well and with anticipated side effects. The patient experienced a temporary pain flare during radiation treatment. TREATMENT RESPONSE: Response to treatment will be determined by patient's post- treatment reported pain levels and/or imaging. RECOMMENDED FOLLOW UP: Radiation Oncologist and Primary Medical Oncologist. She is scheduled for follow-up appointments with Dr. Taylor on March 06, [address] Lamas on March 30, 2019. Signed by: Sarai Yoon P.A.-C., M.S., 02/08/2019 11:11 AM [facility] [address] [place] [address] documented in this encounter Plan of Treatment Not on filedocumented as of this encounter Visit Diagnoses Diagnosis Malignant Neoplasm Of Lower Lobe, Bronch us Or Lung Laterality Unknown (HCC) - Primary Secondary Malignant Neoplasm Bone (HCC) documented in this encounter Additional Health Concerns Assessment Noted Time PHQ-9 Depression Total Score: 13 01/17/2019 8:17 AM CD T documented as of this encounter Care Teams Shoe Designer Relationship Specialty Start Date End Date Rachel Gomez M.D. PCP - General Family Medicine 12/04/18 1 07/04/18 documented as of this encounter
--- OUTSIDE RECORDS SUMMARY | 2022-02-09 07:06 | XMS_ITS | Encounter Summary ---
:1970 Author Organization [facility] Address [address] [place] [address] Care Team Providers Name Role Phone Rachel Gomez M.D. 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 [facility] Procedures MR Brain without and with IV Contrast [address] [place] [address] Referral ID Status Reason Start Date Expiration Date Visits Requ ested Visits Authorized [id number] Closed 01/25/2019 01/25/2020 1 1 Reason for Visit MRI/CAT/PET Scan (Routine) - Closed Specialty Diagnoses / Procedures Referred By Contact Refer red To Contact Radiology Diagnoses Malignant Neoplasm Of Lung Lower Lobe Or Bronchus Right (HCC) Chance Lamas M.D. [facility] Procedures MR Brain without and with IV Contrast [address] [place] [address] Referral ID Status Reason Start Date Expiration Date Visits Requ ested Visits Authorized [id number] Closed 01/25/2019 01/25/2020 1 1 Encounter Details Date Type Department Care Team Description 01/26/2019 Hospital Encounter Department of Chance Lamas Neoplasm Radiology, Shaheed Shepherd M.D. Of Lung Lower Lobe North, in [address] Or Bronchus Right [place], [place] (HCC) [place] [address] [phone] [place], [place] (Work) [phone] Social History Tobacco Use Types Packs/Day Years [...] 1 to 4 times per year 11/21 confucianist services? Do you belong to any clubs [...] Sign Reading Time Taken Comments Blood Pressure - - Pulse - - Temperature - - Respiratory Rate - - Oxygen Saturation - - Inhaled Oxygen Concentration - - Weight - - Height 167.6 cm (5' 6) 01/26/2019 8:12 AM CDT Body Mass Index - - documented in this encounter Medications at Time [...] Procedure Name Priority Date/Time Associated Comments Diagnosis MR BRAIN WITHOUT RAD - Routine 01/26/2019 9:30 Malignant Results for this AND WITH IV (most inpatients AM CDT Neoplasm Of Lung procedu re are in CONTRAST and all Lower Lobe Or the results outpatients) Bronchus Right section. (HCC) documented in this encounter Results MR Brain without and [...] documented in this encounter Visit Diagnoses Diagnosis Malignant Neoplasm Of Lung Lower Lobe Or Bronchus Right (HCC) documented in this encounter Administered Medications Inactive Administered Medications - up to 3 most recent administrations Medication Order MAR Action Action Date Dose Rate Site gadobutrol injection 0.01-30 mL Given 01/26/2019 9:19 AM CDT 11 mL (GADAVIST) 0.01-30 mL, intravenous, Once in imaging, contrast, Starting on Valerie 9/5/19 at 0812, For 1 dose, Imaging Protocol Orders, Dose per Radiant Medication Guidelines sodium chloride (PF) 0.9 % injection 1-1 00 mL Given 01/26/2019 8:15 AM CDT 5 mL 1-100 mL, intravenous, Once, On Valerie 01/26/19 at 0815, For 1 dose, Imaging Protocol Orders documented in this encounter Additional Health Concerns Assessment Noted Time PHQ-9 Depression Total Score: 13 01/17/2019 8:17 AM CD T documented as of this encounter Care Teams Gas Engine Operator Generators Relationship Specialty Start Date End Date Rachel Gomez M.D. PCP - General Family Medicine 12/04/18 1 07/04/18 documented as of this encounter
--- OUTSIDE RECORDS SUMMARY | 2022-02-09 07:06 | XMS_ITS | Encounter Summary ---
:1970 Author Organization [facility] Address [address] [place] [address] Care Team Providers Name Role Phone Rachel Gomez M.D. Primary Care Provider Unavailable Reason for Visit Reason Onset Date Comments returning call 01/20/2019 Encounter Details Date Type Department Care Team Description 01/20/2019 Clinical Communication Department of Jairo Escudero returning call Mike Allison M.D. [facility], in [place], [place] [address], [place] [address] Social History Tobacco Use Types [...] or the highest technical, or vocational p rogram degree you have received? Sex Assigned at Date Recorded Not on file documented as of this encounter Miscellaneous Notes Telephone Encounter - Lucy Sierra C.M.A. - 01/25/2019 9:53 AM CDT Patient seen Telephone Encounter - Jad Acosta - 01/20/2019 11:05 AM CDT Reason for Communication: Pt says she is returning a call to [facility] [address]. Do not see a note about outgoing call at this time. Unable to reach nurse Current Can Nursing/Provider leave a detailed message: yes Did the patient refuse triage through Nurse line? (for symptom based concerns): na Action Needed: Please call Name of Medication (if relevant): documented in this encounter Plan of Treatment Not on filedocumented as of this encounter Visit Diagnoses Not on filedocumented in this encounter Additional Health Concerns Assessment Noted Time PHQ-9 Depression Total Score: 13 01/17/2019 8:17 AM CD T documented as of this encounter Care Teams Supervisor Housecleaner Relationship Specialty Start Date End Date Rachel Gomez M.D. PCP - General Family Medicine 12/04/18 1 07/04/18 documented as of this encounter
--- OUTSIDE RECORDS SUMMARY | 2022-02-09 07:06 | XMS_ITS | Encounter Summary ---
:1970 Author Organization [facility] Address [address] [place] [address] Care Team Providers Name Role Phone Rachel Gomez M.D. Primary Care Provider Unavailable Encounter Details Date Type Department Care Team Description 01/19/2019 Orders Only Department of Oncology in [place] M.[place]. [place] [address] [place] [phone] (Wo rk) Social History Tobacco Use Types [...] 1 to 4 times per year 11/21 mormon services? Do you belong to any clubs [...] documented as of this encounter Care Teams Nursery Laborer Relationship Specialty Start Date End Date Rachel Gomez M.D. PCP - General Family Medicine 12/04/18 1 07/04/18 documented as of this encounter
--- OUTSIDE RECORDS SUMMARY | 2022-02-09 07:06 | XMS_ITS | Encounter Summary ---
:1970 Author Organization [facility] Address [address] [place] [address] Care Team Providers Name Role Phone Rachel Gomez M.D. Primary Care Provider Unavailable Reason for Referral Specialty Diagnoses / Procedures Referred By Contact Refer red To Contact Chance Lamas M .D. [facility] Region [address] [place] [address] Referral ID Status Reason Start Date Expiration Date Visits Requ ested Visits Authorized Encounter Details Date Type Department Care Team Description 02/06/2019 Hospital Encounter Department of Daniel Lamas M.D. [address] [place] [address] Secondary Malignant Radiation Oncology Alida Ibrahim R.N. [address] [place] [address] Neoplasm Bone (HCC) in [place], [place] [address] [place] [phone] Social History Tobacco Use Types Packs/Day Years [...] or relatives? How often do you attend sikh or 1 to 4 times per year 11/21 baptism services? Do you belong to any clubs or No 12/08/2018 organizations such as sikh groups, [employer], [employer] or athletic groups, or school groups? How [...] Oxygen Concentration - - Weight 108 kg (237 lb 10.5 oz) 02/06/2019 9:00 AM CDT Height - - Body Mass Index 38.36 01/26/2019 8:12 AM CDT documented in this [...] 20 mg tablet total) by mouth daily. traMADol (ULTRAM) 50 mg Take 50 mg by mouth 0 02/07/2019 tablet every 12 (twelve) hours. documented as of this encounter Progress Notes Alida Ibrahim R.N. - 02/06/2019 9:15 AM CDT SUBJECTIVE REASON FOR VISIT Evaluation for side effects while receiving radiation treatment for 1. Secondary Malignant Neoplasm Bone (HCC) Nurse visit HISTORY OF PRESENT ILLNESS Mrs. Debora Valdes is a 48-year-old female with metastatic lung cancer. She is currently receiving radiation therapy to L3-L5 to a dose of 2000 cGy in 5 fractions. She has received 3 of 5 fractions for a dose of 1200 cGy out of a planned total dose of 2000 cGy. Her anticipated date of completionis February 08, 2019. Patient reports that her pain is better under control. She took 5 mg of Oxycodone every 4 hours times three doses Wednesday evening and none since. She continues to alternate Tylenol and Ibuprofen every 4hours and takes Gabapentin 600 mg three times daily. She describes the pain as low back pain that radiates down her left leg. The pain is positional as well. OBJECTIVE Wt 108 kg BMI 38.36 kg/m? PHYSICAL EXAM General: Alert and oriented in no apparent distress. ASSESSMENT / PLAN I am encouraged to hear that patient's pain has improved. Our care team will reassess in management visit this Wednesday. Nurse education visit was completed today. She will contact us with any questions or concerns. We will continue with radiation treatment as planned. Signed by: Alida Ibrahim R.N. 02/06/2019 3:18 PM documented in this encounter Plan of Treatment Scheduled Referrals Name Type Priority Associated Order Schedule Diagnoses Radiation Oncology Outpatient Referral Routine Secondary [facility] Once for 1 - Nurse education Neoplasm Bone (HCC) Occ urrences starting visit (clinic) 02/06/2019 un til 02/06/2019 documented as of this encounter Visit Diagnoses Diagnosis Secondary Malignant Neoplasm Bone (HCC) documented in this encounter Additional Health Concerns Assessment Noted Time PHQ-9 Depression Total Score: 13 01/17/2019 8:17 AM CD T documented as of this encounter Care Teams Scanning Tech Relationship Specialty Start Date End Date Rachel Gomez M.D. PCP - General Family Medicine 12/04/18 1 07/04/18 documented as of this encounter
--- OUTSIDE RECORDS SUMMARY | 2022-02-09 07:06 | XMS_ITS | Encounter Summary ---
:1970 Author Organization [facility] Address [address] [place] [address] Care Team Providers Name Role Phone Rachel Gomez M.D. Primary Care Provider Unavailable Encounter Details Date Type Department Care Team Description 02/03/2019 Hospital Encounter Department of Radiation Gracia Lamas, Oncology in [place] [address] [phone] (Wo rk) [phone] Social History Tobacco Use Types Packs/Day Years [...] 1 to 4 times per year 11/21 mandaeism services? Do you belong to any clubs [...] (twelve) hours. documented as of this encounter Plan of Treatment Not on filedocumented as of this encounter Visit Diagnoses Not on filedocumented in this encounter Additional Health Concerns Assessment Noted Time PHQ-9 Depression Total Score: 13 01/17/2019 8:17 AM CD T documented as of this encounter Care Teams Digital Marketer Relationship Specialty Start Date End Date Rachel Gomez M.D. PCP - General Family Medicine 12/04/18 1 07/04/18 documented as of this encounter
--- OUTSIDE RECORDS SUMMARY | 2022-02-09 07:06 | XMS_ITS | Encounter Summary ---
:1970 Author Organization [facility] Address [address] [place] [address] Care Team Providers Name Role Phone Rachel Gomez M.D. Primary Care Provider Unavailable Reason for Referral Radiation Therapy (Routine) - Closed Specialty Diagnoses / Procedures Referred By Contact Refer red To Contact Diagnoses Secondary Malignant Neoplasm Bone (HCC) Chance Lamas M.D. [facility] Procedures Prior Auth Rad Tx AL RADTN TX DEL >=1 MEV COMPLEX [address] [place] [address] Referral ID Status Reason Start Date Expiration Date Visits Requ ested Visits Authorized [id number] Closed 01/24/2019 01/24/2020 5 5 Encounter Details Date Type Department Care Team Description 01/24/2019 Orders Only Department of Chance Lamas Secondar y Malignant Radiation Oncology in [place] Neoplasm Bone (HCC) [facility] [address] (Primary Dx) [address] [place] [phone] Social History Tobacco Use Types Packs/Day Years [...] 1 to 4 times per year 11/21 caodaism services? Do you belong to any clubs or No 12/08/2018 organizations such as zoroastrian groups, unions, fraSnaptrip or athletic groups, or school groups? How [...] Type Priority Associated Diagnoses Order S chedule Prior Auth Rad Tx Radiation Oncology Routine Secondary Maligna nt Ordered: 01/24/2019 Neoplasm Bone (HCC) documented as of this encounter Visit Diagnoses Diagnosis Secondary Malignant Neoplasm Bone (HCC) - Primary documented in this encounter Additional Health Concerns Assessment Noted Time PHQ-9 Depression Total Score: 13 01/17/2019 8:17 AM CD T documented as of this encounter Care Teams Ordnance Handler Relationship Specialty Start Date End Date Rachel Gomez M.D. PCP - General Family Medicine 12/04/18 1 07/04/18 documented as of this encounter
--- OUTSIDE RECORDS SUMMARY | 2022-02-09 07:06 | XMS_ITS | Encounter Summary ---
:[address] [facility] Address [address] [place] [address] Care Team Providers Name Role Phone Rachel Gomez M.D. Primary Care Provider Unavailable Reason for Visit Reason Comments Med Refill Encounter Details Date Type Department Care Team Description 03/03/2019 Refill Department of Family Medicine, Jairo Gomez M.D. Med Refill [facility], in [place], [place] [address] [place] [address] [facility] [phone] Social History Tobacco Use Types Packs/Day Years [...] or the highest technical, or vocational p [facility] degree you have received? Sex Assigned at Date Recorded Not on file documented as of this encounter Miscellaneous Notes Telephone Encounter - Nita Berkowitz R.M.A. - 03/09/2019 3:06 PM CDT noted Telephone Encounter - Judi Casper L.P.N. - 03/07/2019 4:45 PM CDT lmtcb 03/07/19 Telephone Encounter - Rachel Gomez M.D. - 03/06/2019 7:53 AM CDT The last prescription was the initiating titrating schedule. We need to find out how much she is taking daily now and we can send the appropriate prescription. Please call her documented in this encounter Plan of Treatment Not on filedocumented as of this encounter Visit Diagnoses Not on filedocumented in this encounter Additional Health Concerns Assessment Noted Time PHQ-9 Depression Total Score: 13 01/17/2019 8:17 AM CD T documented as of this encounter Care Teams Instrument Assembly Supervisor Relationship Specialty Start Date End Date Rachel Gomez M.D. PCP - General Family Medicine 12/04/18 1 07/04/18 documented as of this encounter
--- OUTSIDE RECORDS SUMMARY | 2022-02-09 07:06 | XMS_ITS | Encounter Summary ---
:1970 Author Organization [facility] Address [address] [place] [address] Care Team Providers Name Role Phone Rachel Gomez M.D. Primary Care Provider Unavailable Encounter Details Date Type Department Care Team Description 02/06/2019 Hospital Encounter Department of Radiation Gracia Lamas, Oncology in [place] [address] [phone] (Wo rk) [address] [phone] Social History Tobacco Use Types Packs/Day Years [...] or relatives? How often do you attend worship or 1 to 4 times per year 11/21 quaker services? Do you belong to any clubs or No 12/08/2018 organizations such as worship groups, unions, fraternal or athletic groups, or [...] documented as of this encounter Care Teams Machine Featheredger And Reducer Relationship Specialty Start Date End Date Rachel Gomez M.D. PCP - General Family Medicine 12/04/18 1 07/04/18 documented as of this encounter
--- OUTSIDE RECORDS SUMMARY | 2022-02-09 07:06 | XMS_ITS | Encounter Summary ---
:1970 Author Organization [facility] Address [address] [place] [address] Care Team Providers Name Role Phone Rachel Gomez M.D. Primary Care Provider Unavailable Reason for Referral Outpatient (Routine) - Closed Specialty Diagnoses / Procedures Referred By Contact Refer red To Contact Radiation Oncology Diagnoses PAR REVIEW Chance Lamas M.D. [facility] Procedures ANTON EST [address] [place] [address] Referral ID Status Reason Start Date Expiration Date Visits Requ ested Visits Authorized [id number] Closed 01/25/2019 01/25/2020 1 1 Reason for Visit Outpatient (Routine) - Closed Specialty Diagnoses / Procedures Referred By Contact Refer red To Contact Radiation Oncology Diagnoses PAR REVIEW [facility]. [facility] Procedures ANTON EST [address] [place] [address] Referral ID Status Reason Start Date Expiration Date Visits Requ ested Visits Authorized [id number] Closed 01/25/2019 01/25/2020 1 1 Encounter Details Date Type Department Care Team Description 02/01/2019 Hospital Encounter Department of Chance Lamas Malignant Radiation Oncology [facility] Shepherd Neoplasm Bone (HCC) in [place], [address] (Primary Dx) [facility], [place] [address] [address] [place], [place] [phone] (Work) [phone] Social History Tobacco Use Types Packs/Day Years [...] or relatives? How often do you attend yarsani or 1 to 4 times per year 11/21 rastafari services? Do you belong to any clubs or No 12/08/2018 organizations such as yarsani groups, unions, [employer] or athletic groups, or school groups? How [...] Sign Reading Time Taken Comments Blood Pressure 143/98 02/01/2019 10:06 AM CDT Pulse 97 02/01/2019 10:06 AM CDT Temperature 36.4 ??C (97.5 ??F) 02/01/2019 10:06 AM CDT Respiratory Rate - - Oxygen Saturation - - Inhaled Oxygen Concentration - - Weight 109 kg (239 lb 3.2 oz) 02/01/2019 10:06 AM CDT Height - - Body Mass Index 38.61 01/26/2019 8:12 AM CDT documented in this [...] (four) hours tablet as needed for pain. predniSONE (DELTASONE) Take 1 tablet (20 mg 5 tablet 1 03/201903/30/2019 20 mg tablet total) by mouth daily. documented as of this encounter Progress Notes Chance Lamas M.D. - 02/01/2019 11:09 AM CDT PATIENT NAME: Debora Valdes [facility] #: [id number] Address: [id number] [place] [id number] Age: 48 y.o. Date of Service: 02/01/19 Provider: Chance Lamas M.D. 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 HISTORY OF PRESENT ILLNESS This 48 y.o. [...] with right lower lobectomy. 9. ??Given Mrs. aVldes ALK positivity, decision was made to pursue a trial of pazopanib therapy. ??She was seen by Dr. Quintero at [facility], and changed ALK communication to ALK [...] received her first cycle of cisplatin plus ROTARY SOIL STABILIZER-16 from December 10 to December 17, her [...] moderately differentiated. ??Visceral pleural invasion was present. All margins were uninvolved by invasive and in situ carcinoma. ??Closest bronchial margin was by 4.5 cm. ??There was a no appreciable treatment effect. ??Lymphovascular invasion was indeterminate. ??Fragments of2 lymph node sets from station 7 were positive. Pathological staging was pT2a, pN2. ?? 15. Postoperative adjuvant chemotherapy consisting of cisplatin and Alimta subsequently changed to carboplatin and Alimta due to GI side effects. She received a total of 4 cycles completed on July 23, 2015 at the [facility]. She was seen in Medical Oncology by Dr. Gonzáles in [facility] on November 21, 2015 who discussed [...] musculature. This is suspicious for musculoskeletal metastasis. 18. January [...] Dr. Yaritza Taylor in Medical Oncology at [facility] who ordered Alectinib and proceeding with radiation therapy to L4 and repeat brain MRI 6 weeks after she starts systemic therapy. If there is evidence of ENGINEERING INSTRUCTOR progression consider gamma knife therapy. Observation of left upper extremity lesion as index to determine response to systemic therapy. Excisionor radiation therapy could be considered if response is suboptimal. INTERVAL HISTORY I saw this patient in consultation on January 25, 2019. She had brain MRI, and ultrasound-guided biopsy of the left upper extremity lesion with the above findings. She was seen by Dr. Taylor on January 30, 2019. She has not started Alectinib yet. She reports that her pain has worsened. Her pain is located in the low back radiating to the left hip and to the front of the left leg. She rates her pain at a 4 on a scale of 0-10. It is worse if she walks and better if she is sitting. She currently is taking gabapentin 300 mg 2 tablets 3 times a day, Tylenol 1000 mg 2-3 times per day, and Advil 400 mg 3-4 times per day. She reports no left lower extremity weakness. She has mild discomfort in the left up per extremity biopsy site. PATIENT REPORTED SYMPTOM SCREEN: ?? FATIGUE (Scale: 0 = no fatigue; 10 = worst fatigue you can imagine): 0 ?? PAIN (Scale: 0 = no pain; 10 = worst pain you can imagine): 4 ?? OVERALL QUALITY OF LIFE (Scale: 0 = as bad as can be; 10 = as good as can be): 7 VITAL SIGNS BP (!) 143/98 (BP Location: Left arm, Patient Position: Sitting, Cuff Size: Small) Pulse 97 Temp36.4 ??C (Temporal) Wt 109 kg BMI 38.61 kg/m?? PHYSICAL EXAM Alert and oriented with no acute signs of distress. Musculoskeletal: There is ecchymosis and tenderness over the left upper extremity biopsy site. This is in the anterior aspect of the upper arm. There is an ill-defined tender mass in this area. 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 #2 Crizotinib therapy for two months completed December 06, 2014, with slight decrease in size of right lower lobe lung mass #3 Concurrent cisplatin and ROTARY SOIL STABILIZER 16 chemotherapy and definitive radiation therapy completed January 25, 2015 #4 Right lower lobectomy and mediastinal lymphadenectomy March 11, 2015 for pathologic stage T2a N2 adenocarcinoma #5 Postoperative adjuvant chemotherapy for 4 cycles completed July 23, 2015 #6 PET-CT on January 24, 2019 showing evidence of metastatic disease at L4 vertebral body and left upper extremity muscle #7 At least 2 tiny brain metastases on January 26, 2019 brain MRI. Follow-up brain MRI 6 weeks following initiation of systemic therapy planned #[address] Taylor on January 30, 2019 I reviewed the results of the brain MRI and the left upper extremity soft tissue biopsy with the patient. I recommend proceeding with radiation therapy to the L4 lesion with the goal of decreasing her pain and preventing further neurologic compromise. When she originally presented with pain she was given prednisone 20 mg a day for 5 days which resulted in complete relief of her pain. Since there is apossibility of causing pain flare I recommend another course of prednisone 20 mg a day for 5 days tohelp decrease her current pain and also decrease the chance of a pain flare. I prescribed this electronically. She will take this with food and begin today. Other possible side effects of radiation to the lumbar spine were discussed including fatigue, skin burn, and bowel irritation with diarrhea, cramps, or nausea. The possibility that this treatment would not result in durable control of disease inL4 was discussed. There may be in need for additional radiation therapy or surgery to L4 down the road. We will observe the left upper extremity soft tissue mass for now. She was told it will take about a week before she will have Alectinib. She will undergo radiation simulation today. I will include L3 through L5. She will receive 2000 cGy in 5 fractions. We will plan on starting this tomorrow. The patient had questions were answered. She understands and desires to proceed with radiation therapy I have spent 30 minutes with this patient today in which greater than 50% was spent counseling. Signed by: Chance Lamas M.D. 02/01/2019 11:09 AM [facility] [address] [place] [address] FAX: [phone] documented in this encounter Miscellaneous Notes Addendum Note - Hemalatha Morales - 02/01/2019 10:29 AM CDT Encounter addended by: Hemalatha Morales on: 02/02/2019 8:24 AM Actions taken: Letter saved documented in this encounter Plan of Treatment Scheduled Referrals Name Type Priority Associated Order Schedule Diagnoses Radiation Oncology Outpatient Referral Routine On ce for 1 office visit Occurrences sta rting (clinic) 02/01/2019 unti l 02/01/2019 documented as of this encounter Visit Diagnoses Diagnosis Secondary Malignant Neoplasm Bone (HCC) - Primary documented in this encounter Additional Health Concerns Assessment Noted Time PHQ-9 Depression Total Score: 13 01/17/2019 8:17 AM CD T documented as of this encounter Care Teams Bead Builder Relationship Specialty Start Date End Date Rachel Gomez M.D. PCP - General Family Medicine 12/04/18 1 07/04/18 documented as of this encounter
--- OUTSIDE RECORDS SUMMARY | 2022-02-09 07:06 | XMS_ITS | Encounter Summary ---
:1970 Author Organization [facility] Address [address] [place] [address] Care Team Providers Name Role Phone Rachel Gomez M.D. Primary Care Provider Unavailable Reason for Referral Radiation Therapy (Routine) - Closed Specialty Diagnoses / Procedures Referred By Contact Refer red To Contact Diagnoses Secondary Malignant Neoplasm Bone (HCC) Chance Lamas M.D. [facility] Procedures Initial Rad Onc Treatment Planning CT Simulation [address] [place] [address] Referral ID Status Reason Start Date Expiration Date Visits Requ ested Visits Authorized [id number] Closed 01/27/2019 01/27/2020 3 3 Reason for Visit Radiation Therapy (Routine) - Closed Specialty Diagnoses / Procedures Referred By Contact Refer red To Contact Diagnoses Secondary Malignant Neoplasm Bone (HCC) Chance Lamas M.D. [facility] Procedures Initial Rad Onc Treatment Planning CT Simulation [address] [place] [address] Referral ID Status Reason Start Date Expiration Date Visits Requ ested Visits Authorized [id number] Closed 01/27/2019 01/27/2020 3 3 Encounter Details Date Type Department Care Team Description 02/01/2019 Hospital Encounter Department of Chance Lamas Malignant Radiation Oncology Silva Sehpherd Neoplasm Bone (HCC) in [place], [address] [facility], [place] [address] [facility] [address] [place], [place] [phone] [address] (Work) [phone] Social History Tobacco Use Types Packs/Day Years [...] or relatives? How often do you attend advent or 1 to 4 times per year 11/21 orthodox services? Do you belong to any clubs or No 12/08/2018 organizations such as advent groups, unions, fraternal or athletic groups, or [...] or the highest technical, or vocational p [facility] degree you have received? Sex Assigned at [...] mouth daily. documented as of this encounter Procedure Notes Chance Lamas M.D. - 02/01/2019 11:59 AM CDTAssociated Order(s): Initial Rad Onc Treatment Planning CT Simulation Pre-Procedure Diagnose(s): Secondary Malignant Neoplasm Bone (HCC) Post-Procedure Diagnose(s): Secondary Malignant Neoplasm Bone (HCC) Initial Rad Onc Treatment Planning CT Simulation Date/Time: 02/01/2019 11:59 AM Performed by: Chance Lamas M.D. Authorized by: Chance Lamas M.D. SIMULATION NOTE: Simulation was initiated on February 01, 2019 based on my order, under my direct supervision in preparation for radiation therapy for lung cancer metastatic to L4. The patient was placed in the treatment position using the necessary immobilization to ensure a reproducible treatment position. Set-up pa rameters to be used for daily treatment are outlined below. Reference ma were placed on the patient to facilitate marking of isocenter. The procedure was performed under my personal supervision. Contrast used for the simulation procedure: None Patient position: Supine Arm/Hand position: Resting on chest Custom immobilization device: Vac-Rio for legs Legs/feet position: Straight Motion management: None Bolus: None Wires: None CT guidance: Following positioning of the patient, a series of 223 slices was obtained through the treatment area to be utilized in treatment planning. CT images were transferred to the Eclipse planning system, isocenter was determined and marked on the patient with tattoos. Segmentation and treatmentplanning will take place prior to treatment delivery. Patient set up and imaging was appropriate and completed without incident. documented in this encounter Plan of Treatment Not on filedocumented as of this encounter Procedures Procedure Name Priority Date/Time Associated Comments Diagnosis INITIAL RAD ONC Routine 02/01/2019 11:59 AM Secondary Malignan t Results for this TREATMENT PLANNING CDT Neoplasm Bone (HCC) pr ocedure are in CT SIMULATION the results section. documented in this encounter Results Initial Rad Onc Treatment Planning CT Simulation (02/01/2019 11:59 AM CDT) Specimen (Source) Anatomical Location Collection Method / Collectio n Time Received Time / Laterality Volume Narrative BONNIE KO - 02/01/2019 11:59 AM CDT Chance Lamas M.D. ? 02/01/2019 12:00 PM Initial Rad Onc Treatment Planning CT Si mulation Date/Time: 02/01/2019 11:59 AM Performed by: Chance Lamas M.D. Authorized by: Chance Lamas M.D. Chance Lamas M.D. RADIATION ONCOLOGY ORDERABLE S Performing Organization Address City/State/[facility] Code Phon e Number [facility] documented in this encounter Visit Diagnoses Diagnosis Secondary Malignant Neoplasm Bone (HCC) documented in this encounter Additional Health Concerns Assessment Noted Time PHQ-9 Depression Total Score: 13 01/17/2019 8:17 AM CD T documented as of this encounter Care Teams Vocational Instructor Relationship Specialty Start Date End Date Rachel Gomez M.D. PCP - General Family Medicine 12/04/18 1 07/04/18 documented as of this encounter
--- OUTSIDE RECORDS SUMMARY | 2022-02-09 07:06 | XMS_ITS | Encounter Summary ---
:1970 Author Organization [facility] Address [address] [place] [address] Care Team Providers Name Role Phone Rachel Gomez M.D. Primary Care Provider Unavailable Reason for Visit Radiation Therapy (Routine) - Closed Specialty Diagnoses / Procedures Referred By Contact Refer red To Contact Diagnoses Secondary Malignant Neoplasm Bone (HCC) Chance Lamas M.D. [facility] Procedures Prior Auth Rad Tx RI RADTN TX DEL >=1 MEV COMPLEX [address] [place] [address] Referral ID Status Reason Start Date Expiration Date Visits Requ ested Visits Authorized [id number] Closed 01/24/2019 01/24/2020 5 5 Encounter Details Date Type Department Care Team Description 02/02/2019 Hospital Encounter Department of Radiation Gracia Laams, [place]cology in [place] [address] [facility] [address] [place] [address] [place], [place] [phone] (Wo rk) [phone] Social History Tobacco Use Types Packs/Day Years [...] or relatives? How often do you attend latter day or 1 to 4 times per year 11/21 religion services? Do you belong to any clubs or No 12/08/2018 organizations such as latter day groups, unions, fraternal or athletic groups, or [...] documented as of this encounter Care Teams Valve Grinder Relationship Specialty Start Date End Date Rachle Gomez M.D. PCP - General Family Medicine 12/04/18 1 07/04/18 documented as of this encounter
--- OUTSIDE RECORDS SUMMARY | 2022-02-09 07:06 | XMS_ITS | Encounter Summary ---
:1970 Author Organization [facility] Address [address] [place] [address] Care Team Providers Name Role Phone Racehl Gomez M.D. Primary Care Provider Unavailable Reason for Referral MRI/CAT/PET Scan (Routine) - Closed Specialty Diagnoses / Procedures Referred By Contact Refer red To Contact Radiology Diagnoses Secondary Malignant Neoplasm Brain (HCC) Chance Lamas M.D. [facility] Procedures MR Brain without and with IV Contrast [address] [place] [address] Referral ID Status Reason Start Date Expiration Date Visits Requ ested Visits Authorized [id number] Closed 02/07/2019 02/07/2020 1 1 CE SUPPORT ASSOCIATE Reason for Visit MRI/CAT/PET Scan (Routine) - Closed Specialty Diagnoses / Procedures Referred By Contact Refer red To Contact Radiology Diagnoses Secondary Malignant Neoplasm Brain (HCC) Chance Lamas M.D. [facility] Procedures MR Brain without and with IV Contrast [address] [place] [address] Referral ID Status Reason Start Date Expiration Date Visits Requ ested Visits Authorized [id number] Closed 02/07/2019 02/07/2020 1 1 Encounter Details Date Type Department Care Team Description 03/28/2019 Hospital Encounter Department of Chance Lamas Malignant Radiology, Shaheed Shepherd M.D. Neoplasm Brain (HCC) [place], in [address] [facility] [address] [phone] [place], [place] (Work) [address] [phone] Social History Tobacco Use Types Packs/Day Years [...] 1 to 4 times per year 11/21 sabianism services? Do you belong to any clubs [...] Concentration - - Weight - - Height 166.4 cm (5' 5.5) 03/28/2019 9:54 AM OFFICE SUPPORT ASSOCIATE Body Mass Index - - documented in this encounter Medications at Time of Discharge Medication Sig Dispensed Refills Start Date End Date acetaminophen 325 mg as needed. 0 08/05/2015 capsule ALECENSA 150 mg capsule 0 03/03/2019 levonorgestrel (MIRENA) by intrauterine 0 007 20 mcg/24 hours (5 yrs) route. 52 mg IUD gabapentin (NEURONTIN) Take 1 capsule (300 270 capsule 3 03/30/2019 300 mg capsule mg total) by mouth 3 (three) times a day. ibuprofen Take 400 mg by mouth 0 [...] Diagnosis MR BRAIN WITHOUT RAD - Routine 03/28/2019 11:00 Secondary Result s for this AND WITH IV (most inpatients AM OFFICE SUPPORT ASSOCIATE Malignant procedure a re in CONTRAST and all Neoplasm Brain the results outpatients) (HCC) section. documented in this encounter Results MR Brain without and with IV Contrast (03/28/2019 11:00 AM OFFICE SUPPORT ASSOCIATE) Anatomical Region Laterality Modality Head, Brain, Neuroradiology RST LOS, Neuroradiology ARZ N/A Magnetic Resonance LOS, Neuroradiology FLA LOS Specimen (Source) Anatomical Collection Method Collection Time Re ceived Time Location / / Volume Laterality 03/28/2019 1:02 PM OFFICE SUPPORT ASSOCIATE Impressions 03/28/2019 1:13 PM OFFICE SUPPORT ASSOCIATE No intracranial metastases. Narrative 03/28/2019 1:13 PM OFFICE SUPPORT ASSOCIATE EXAM: MR BRAIN WITHOUT AND WITH IV CONTRAST COMPARISON: 09/07/14 FINDINGS: No focal mass, mass effect or abnormal enhancement to suggest intracranial metastases. Single punctate focus FLAIR hyperintensity left frontal subcortical white matter of doubtful cli nical significance. Mild scattered paranasal sinus mucosal thickening. Procedure Note Donald Meeks M.D., M.B.A. - 03/28/2019 EXAM: MR BRAIN WITHOUT AND WITH IV CONTR AST COMPARISON: 09/07/14 FINDINGS: No focal mass, mass effect or abnormal enhancement to suggest intracranial metastases. Single punctate focus FLAIR hyperintensity left frontal subcortical white matter of doubtful cli nical significance. Mild scattered paranasal sinus mucosal thickening. IMPRESSION: No intracranial metastases. Chance BUSTAMANTE MRI PROCEDURES documented in this encounter Visit Diagnoses Diagnosis Secondary Malignant Neoplasm Brain (HCC) documented in this encounter Administered Medications Inactive Administered Medications - up to 3 most recent administrations Medication Order MAR Action Action Date Dose Rate Site gadobutrol injection 0.01-30 mL Given 03/28/2019 10:49 AM OFFICE SUPPORT ASSOCIATE 11 mL (GADAVIST) 0.01-30 mL, intravenous, Once in imaging, contrast, Starting on Wed03/28/19 at 0951, For 1 dose, Imaging Protocol Orders, Dose per Radiant Medication Guidelines documented in this encounter Additional Health Concerns Assessment Noted Time PHQ-9 Depression Total Score: 13 01/17/2019 8:17 AM CD T documented as of this encounter Care Teams Electron Microprobe Operator Relationship Specialty Start Date End Date Rachel Gomez M.D. PCP - General Family Medicine 12/04/18 1 07/04/18 documented as of this encounter
--- OUTSIDE RECORDS SUMMARY | 2022-02-09 07:06 | XMS_ITS | Encounter Summary ---
:1970 Author Organization [facility] Address [address] [place] [address] Care Team Providers Name Role Phone Rachel Gomez M.D. Primary Care Provider Unavailable Reason for Referral Specialty Diagnoses / Procedures Referred By Contact Refer red To Contact Chance Lamas M .D. [facility] Region [address] [place] [address] Referral ID Status Reason Start Date Expiration Date Visits Requ ested Visits Authorized Radiation Therapy (Routine) - Closed Specialty Diagnoses / Procedures Referred By Contact Refer red To Contact Diagnoses Secondary Malignant Neoplasm Bone (HCC) Chance Lamas M.D. [facility] Procedures Initial Rad Onc Treatment Planning CT Simulation [address] [place] [address] Referral ID Status Reason Start Date Expiration Date Visits Requ ested Visits Authorized [id number] Closed 01/27/2019 01/27/2020 3 3 Encounter Details Date Type Department Care Team Description 01/27/2019 Orders Only Department of Chance Lamas Secondar y Malignant Radiation Oncology in [place] Neoplasm Bone (HCC) [facility] [address] [facility] (Primary Dx) [address] [place] [id number] [phone] Social History Tobacco Use Types Packs/Day Years [...] or relatives? How often do you attend mormonism or 1 to 4 times per year 11/21 buddhism services? Do you belong to any clubs or No 12/08/2018 organizations such as mormonism groups, unions, fraternal or athletic groups, or [...] Treatment Scheduled Referrals Name Type Priority Associated Diagnoses Order S [facility] Radiation Oncology Outpatient Referral Routine Secondary Kelli fatima Expected: - Nurse education Neoplasm Bone (HCC) 10/2018 visit (clinic) (Approximate) , Expires: 01/27/2022 documented as of this encounter Results Initial Rad Onc Treatment [...] RADIATION ONCOLOGY ORDERABLE S Performing Organization Address City/State/ZIP Code Phon e Number NICOLE XIOMARAA [place] MAIKEL na documented in this encounter Visit Diagnoses Diagnosis Secondary Malignant Neoplasm Bone (HCC) - Primary Secondary Malignant Neoplasm Bone (HCC) documented in this encounter Additional Health Concerns Assessment Noted Time PHQ-9 Depression Total Score: 13 01/17/2019 8:17 AM CD T documented as of this encounter Care Teams Engine Lathe Set Up Operator Relationship Specialty Start Date End Date Rachel Gomez M.D. PCP - General Family Medicine 12/04/18 1 07/04/18 documented as of this encounter
--- OUTSIDE RECORDS SUMMARY | 2022-02-09 07:06 | XMS_ITS | Encounter Summary ---
:1970 Author Organization [facility] Address [address] [place] [address] Care Team Providers Name Role Phone Rachel Gomez M.D. 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 [address] [place], [place] [address] Referral ID Status Reason Start Date Expiration Date Visits Requ ested Visits Authorized [id number] Closed 01/24/2019 02/23/2019 6 6 Encounter Details Date Type Department Care Team Description 01/24/2019 Hospital Encounter Department of Sarai Yoon Seconda ry Malignant Radiology, John Mcdonnell P.A.-C. Neoplasm Lung (HCC) Clinic, in [place], [facility] [address] [place], [place] [address] [id number] [place] [phone] [place], [place] (Work) [phone] Social History Tobacco Use Types Packs/Day Years [...] or relatives? How often do you attend adventism or 1 to 4 times per year 11/21 judaism services? Do you belong to any clubs or No 12/08/2018 organizations such as adventism groups, unions, fraternal or athletic groups, or [...] the highest technical, or vocational p [facility] degree you have received? Sex Assigned at [...] (four) hours tablet as needed for pain. traMADol (ULTRAM) 50 mg Take 1-2 tablets 30 tablet 0 201801/25/2019 tabletIndications: (50-100 mg total) by Acute Pain, Acute Pain mouth at bedtime as Exception, Prolonged needed for moderate Acute Pain/Traumatic pain or score 4-6 of Injury 10 Indications: Acute Pain, Acute Pain Exception, Prolonged Acute Pain/Traumatic Injury. documented as of this encounter Plan of Treatment Not on filedocumented as of this encounter Procedures Procedure Name Priority Date/Time Associated Comments Diagnosis PET CT SKULL TO RAD - Routine 01/24/2019 9:11 Secondary Results for this THIGH (most inpatients AM CDT Malignant procedure a re in and all Neoplasm Lung the results outpatients) (HCC) section. documented in this encounter Results PET CT Skull to Thigh FDG (01/24/2019 9:11 AM CDT) Anatomical Region Laterality Modality Body, Nuclear Medicine PET RST LOS, PET N/A Positron Emission Tomography (PET) ARZ LOS, Nuclear Medicine PET FLA LOS Specimen (Source) Anatomical Collection Method Collection Time Re ceived Time Location / / Volume Laterality 01/24/2019 9:57 AM CDT Impressions 01/24/2019 10:14 AM CDT 1. L4 vertebral body lesion seen on MRI 01/11/2019 is highly hypermetabolic on today's PET-CT, representing bony metast atic disease. 2. Hypermetabolic soft tissue tissue pos itioned within the mid left triceps musculature, suspicious for musculoskele olimpia metastasis. 3. Interval resolution of right lower lo be hypermetabolic pulmonary mass, and interval resolution of hypermetabolic ri ght hilar and mediastinal chest lymphadenopathy without PET-CT evidence for localized recurrence in the chest. Narrative 01/24/2019 10:14 AM CDT EXAM: PET CT SKULL TO THIGH FDG COMPARISON: 09/11/2014. Correlation with MRI of the lumbar spine 01/11/2019 INDICATION: Lung cancer, with new L4 mas s seen on MRI 01/11/2019. Subsequent treatment strategy. F-[address] scan was performed from the mid calvarium through the upper thighs with CT fusion imaging for attenu ation correction, anatomic coregistration, and respiratory gating o nly. Serum glucose at time of F-18 FDG inject ion: 111 mg/dL. Uptake time: 60 minutes following inject ion. FINDINGS: Head/Neck: No suspicious hypermetabolic foci. Chest: The previously observed hypermeta bolic right lower lobe pulmonary mass is no longer detected. No suspicious hyperm etabolic foci. Background internal control mediastinal uptake measures appr oximately 3.56. Abdomen/Pelvis: No suspicious hypermetab olic foci. Skeleton: When compared with 09/11/2012, there are 2 new hypermetabolic musculoskeletal lesions, one of which is positioned within the left triceps musculature, image 16 of series 4/3 with maximum SUV measuring 12.28, with poorly defined borders on none contrast enhanced CT scan image 18 of series 3. There is a second hypermetabolic expandi ng mass within the L4 vertebra, pedicle, lamina, transverse process and spinous p rocess, centered on image 160 of series 4/3 with maximum SUV that measures 15.18 . Other Findings: There is no pneumothorax . No acute airspace opacity is observed. Heterogeneous but predominantly low atte nuating left lobe of liver mass, nonhypermetabolic and centered on image 112 of series 4/3 is stable. There is an IUD centrally located within the uterine lumen. There is no free intraperitoneal air, free fluid, fluid collection, or ab scess. No small bowel or colon obstruction or pneumatosis is detected. Normal-appearing appendix in the right lower quadrant, image 170 of series 2. RADIOPHARMACEUTICAL/MEDS: Route: intravenous fludeoxyglucose F 18 injection GROUP HOME (FDG F-18),12.7 millicurie Procedure Note Donald Jesus M.D. - 01/24/2019Form atting of this note might be different from the original. EXAM: PET CT SKULL TO THIGH FDG COMPARISON: 09/11/2014. Correlation with MRI of the lumbar spine 01/11/2019 INDICATION: Lung cancer, with new L4 mas s seen on MRI 01/11/2019. Subsequent treatment strategy. F-[address] scan was performed from the mid calvarium through the upper thighs with CT fusion imaging for attenu ation correction, anatomic coregistration, and respiratory gating o nly. Serum glucose at time of F-18 FDG inject ion: 111 mg/dL. Uptake time: 60 minutes following inject ion. FINDINGS: Head/Neck: No suspicious hypermetabolic foci. Chest: The previously observed hypermeta bolic right lower lobe pulmonary mass is no longer detected. No suspicious hyperm etabolic foci. Background internal control mediastinal uptake measures appr oximately 3.56. Abdomen/Pelvis: No suspicious hypermetab olic foci. Skeleton: When compared with 09/11/2012, there are 2 new hypermetabolic musculoskeletal lesions, one of which is positioned within the left triceps musculature, image 16 of series 4/3 with maximum SUV measuring 12.28, with poorly defined borders on none contrast enhanced CT scan image 18 of series 3. There is a second hypermetabolic expandi ng mass within the L4 vertebra, pedicle, lamina, transverse process and spinous p rocess, centered on image 160 of series 4/3 with maximum SUV that measures 15.18 . Other Findings: There is no pneumothorax . No acute airspace opacity is observed. Heterogeneous but predominantly low atte nuating left lobe of liver mass, nonhypermetabolic and centered on image 112 of series 4/3 is stable. There is an IUD centrally located within the uterine lumen. There is no free intraperitoneal air, free fluid, fluid collection, or ab scess. No small bowel or colon obstruction or pneumatosis is detected. Normal-appearing appendix in the right lower quadrant, image 170 of series 2. RADIOPHARMACEUTICAL/MEDS: Route: intravenous fludeoxyglucose F 18 injection GROUP HOME (FDG F-18),12.7 millicurie IMPRESSION: 1. L4 vertebral body lesion seen on MRI 01/11/2019 is highly hypermetabolic on today's PET-CT, representing bony metast atic disease. 2. Hypermetabolic soft tissue tissue pos itioned within the mid left triceps musculature, suspicious for musculoskele olimpia metastasis. 3. Interval resolution of right lower lo be hypermetabolic pulmonary mass, and interval resolution of hypermetabolic ri ght hilar and mediastinal chest lymphadenopathy without PET-CT evidence for localized recurrence in the chest. Sarai Yoon P.A.-C., M.S. IMG NM PROCEDURES documented in this encounter Visit Diagnoses Diagnosis Secondary Malignant Neoplasm Of Lung Lat erality Unknown (HCC) documented in this encounter Administered Medications Inactive Administered Medications - up to 3 most recent administrations Medication Order MAR Action Action Date Dose Rate Site fludeoxyglucose F 18 Given 01/24/2019 12.7 millicuries Right Antecubital injection GROUP HOME (FDG 7:25 AM CDT F-18) 12.7 millicurie, intravenous, Once, On Wed01/24/19 at 0900, For 1 dose documented in this encounter Additional Health Concerns Assessment Noted Time PHQ-9 Depression Total Score: 13 01/17/2019 8:17 AM CD T documented as of this encounter Care Teams Product Safety Compliance Leader Relationship Specialty Start Date End Date Rachel Gomez M.D. PCP - General Family Medicine 12/04/18 1 07/04/18 documented as of this encounter
--- OUTSIDE RECORDS SUMMARY | 2022-02-09 07:06 | XMS_ITS | Encounter Summary ---
:1970 Author Organization [facility] Address [address] [place] [address] Care Team Providers Name Role Phone Rachel Gomez M.D. Primary Care Provider Unavailable Reason for Visit Reason Onset Date Comments Advice Only 02/09/2019 Patient had indicate d on Medical Ranch Supervisor checklist an interest in [facility] about community resources for exercise/yoga/altern ative therapy. In telephone conversation, she specified that s he is particularly interested in yoga resources. Social wo rker provided information about free yoga classes offered by [employer] to persons being treated for cancer. She inte nds to contact this resource, and is aware she can call if she would like additional resources. Encounter Details Date Type Department Care Team Description 02/09/2019 Clinical Communication Department of Aury Rosario Only (Patient Radiation Oncology Becka Brooke had indic ated on in [facility] Services checklist [address] [facility] an interest in [place], [place] information a bout [phone] community resources [phone] for exercise/yoga/a ltern ative therapy. In telephone conversation, s he specified that she is particularly interested in y oga resources. Soci al worker provided information abo ut free yoga class es offered by [facility] [employer] to persons being treated for can cer. She intends to contact this resource, and i s aware she can c all if she would li ke additional resources.) Social History Tobacco Use Types Packs/Day Years [...] or relatives? How often do you attend hoahaoism or 1 to 4 times per year 11/21 christian services? Do you belong to any clubs or No 12/08/2018 organizations such as hoahaoism groups, unions, fraternal or athletic groups, or [...] documented as of this encounter Care Teams Delivery Representative Relationship Specialty Start Date End Date Rachel Gomez M.D. PCP - General Family Medicine 12/04/18 1 07/04/18 documented as of this encounter
--- OUTSIDE RECORDS SUMMARY | 2022-02-09 07:06 | XMS_ITS | Encounter Summary ---
:1970 Author Organization [facility] Address [address] [place] [address] Care Team Providers Name Role Phone Rachel Gomez M.D. Primary Care Provider Unavailable Reason for Referral Radiation Therapy (Routine) - Canceled Specialty Diagnoses / Procedures Referred By Contact Refer red To Contact Diagnoses Secondary Malignant Neoplasm Bone (HCC) Chance Lamas M.D. [facility] Procedures Management Visit [address] [place] [address] Referral ID Status Reason Start Date Expiration Date Visits V isits Requested Authorized [id number] Canceled 01/27/2019 01/27/2020 1 1 Reason for Visit Radiation Therapy (Routine) - Canceled Specialty Diagnoses / Procedures Referred By Contact Refer red To Contact Diagnoses Secondary Malignant Neoplasm Bone (HCC) Chance [facility].D. [facility] Procedures Management Visit [address] [place] [address] Referral ID Status Reason Start Date Expiration Date Visits V isits Requested Authorized [id number] Canceled 01/27/2019 01/27/2020 1 1 Encounter Details Date Type Department Care Team Description 02/03/2019 Hospital Encounter Department of Chance Lamas Malignant Radiation Oncology [facility] Neoplasm Bone (HCC) in [place], [address] [place], [place] [address] [facility] [address] [place], [place] [phone] (Work) [phone] Social History Tobacco Use Types Packs/Day Years [...] or relatives? How often do you attend alevism or 1 to 4 times per year 11/21 nondenominational services? Do you belong to any clubs or No 12/08/2018 organizations such as alevism groups, unions, fraternal or athletic groups, or [...] or the highest technical, or vocational p [employer] degree you have received? Sex Assigned at Date Recorded Not on file documented as of this encounter Last Filed Vital Signs Vital Sign Reading Time Taken Comments Blood Pressure 154/96 02/03/2019 2:55 PM CDT Pulse 89 02/03/2019 2:55 PM CDT Temperature 36.3 ??C (97.3 ??F) 02/03/2019 2:55 PM CDT Respiratory Rate - - Oxygen Saturation - - Inhaled Oxygen Concentration - - Weight 108 kg (238 lb 15.7 oz) 02/03/2019 2:55 PM CDT Height - - Body Mass Index 38.57 01/26/2019 8:12 AM CDT documented in this [...] Progress Notes Sarai Yoon P.A.-C., M.S. - 02/03/2019 3:18 PM CDT SUBJECTIVE REASON FOR VISIT Evaluation for side effects while receiving radiation treatment for 1. Secondary Malignant Neoplasm Bone (HCC) SUPERVISED BY: Chance Lamas M.D. ([phone]) HISTORY OF PRESENT ILLNESS Mrs. Debora Valdes is a 48-year-old female with metastatic lung cancer. She is currently receiving radiation therapy to L3-L5 to a dose of 2000 cGy in 5 fractions. She has received 1 of 5 fractions for a dose of 400 cGy out of a planned total dose of 2000 cGy. Her anticipated date of completion is February 08, 2019. The patient's case was discussed today with Dr. Lamas. The patient was asked to be seen today due to increased pain. She was seen prior to her treatment. She reports increased pain in her back and left hip that radiates down her right leg. She reports thatit starts as tingling and then becomes painful. The pain has been worse the past two nights, even before she started radiation treatment. She rates the pain as 7-8/10 in severity with a flare. She rates the pain as a constant 4-5/10 in severity. She has increased pain with walking. The pain wakes her up at night. She reports that ice followed by a hot bath helps the pain. She is taking gabapentin 600mg three times daily. She is alternating Advil and Tylenol every four hours. She is taking prednisone 20 mg once daily. She has taken tramadol one tablet as needed with pain flares, with some benefit, but not complete. PATIENT REPORTED SYMPTOM SCREEN FATIGUE (Scale: 0 = no fatigue; 10 = worst fatigue you can imagine): 5 ?? PAIN (Scale: 0 = no pain; 10 = worst pain you can imagine): 5 ?? OVERALL QUALITY OF LIFE (Scale: 0 = as bad as can be; 10 = as good as can be): N/A OBJECTIVE BP (!) 154/96 (BP Location: Right arm, Patient Position: Sitting, Cuff Size: Small) Pulse 89 Temp 36.3 ??C (Temporal) Wt 108 kg BMI 38.57 kg/m? PHYSICAL EXAM General: Alert and oriented in no apparent distress. 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 Taylor on January 30, 2019 #9 Radiation therapy to L3-5 initiated on February 02, 2019; anticipated completion on February 08, 2019 The patient has experience increased back and left hip pain, especially the past two nights. She feels that her pain is managed during the day with alternating Advil and Tylenol, but that the pain is severe at night and wakes her from sleep. The tramadol has not provided significant relief. I reviewedthe patient's case with Dr. Lamas and he recommended prescribing oxycodone. I provided the patient with a printed prescription for oxycodone 5 mg one tablet every 4 hours as needed, #20. She was educated on the use of the medication and the side effects. She was recommended to take the medication forpain flares that is not controlled by her other medications. She was educated on the side effects, es pecially sedation, respiratory depression, and constipation. She will continue to take gabapentin 600 mg three times daily and alternate Advil and Tylenol every 4 hours during the day. She will discontinue use of tramadol at this time. She was provided with a handout of information on constipation management and this was reviewed in detail. We will re-evaluate the patient's pain next week. She has our contact information if needed over the weekend. She will contact us with any questions or concerns.We will continue with radiation treatment as planned. Signed by: Sarai Yoon P.A.-C., M.S. 02/03/2019 3:18 PM documented in this encounter Plan of Treatment Scheduled Orders Name Type Priority Associated Diagnoses Order S chedule Management Visit Radiation Oncology Routine Secondary Malignan t Once for 1 Neoplasm Bone (HCC) Occurren brandi starting 02/03/2019 unti l 02/03/2019 documented as of this encounter Visit Diagnoses Diagnosis Secondary Malignant Neoplasm Bone (HCC) documented in this encounter Additional Health Concerns Assessment Noted Time PHQ-9 Depression Total Score: 13 01/17/2019 8:17 AM CD T documented as of this encounter Care Teams Environmental Services Technician Relationship Specialty Start Date End Date Rachel Gomez M.D. PCP - General Family Medicine 12/04/18 1 07/04/18 documented as of this encounter
--- OUTSIDE RECORDS SUMMARY | 2022-02-09 07:06 | XMS_ITS | Encounter Summary ---
:1970 Author Organization [facility] Address [address] [place] [address] Care Team Providers Name Role Phone Rachel Gomez M.D. Primary Care Provider Unavailable Reason for Referral Outpatient (Routine) - Closed Specialty Diagnoses / Procedures Referred By Contact Refer red To Contact Radiation Oncology Diagnoses PAR Chance Lmaas M.D. [address] [address] Referral ID Status Reason Start Date Expiration Date Visits Requ ested Visits Authorized [id number] Closed 01/24/2019 01/24/2020 1 1 Encounter Details Date Type Department Care Team Description 01/24/2019 Orders Only Department of Radiation Chance Lamas M.D. Oncology in [address] [place] [address] [place], [place] [phone] Social History Tobacco Use Types Packs/Day Years [...] or relatives? How often do you attend judaism or 1 to 4 times per year 11/21 latter-day services? Do you belong to any clubs or No 12/08/2018 organizations such as judaism groups, unions, fraternal or athletic groups, or [...] Name Type Priority Associated Diagnoses Order [place] Radiation Oncology Outpatient Referral Routine Ex pected: office visit 01/24/2019 (clinic) (Approximate), Expires: 01/24/2022 documented as of this encounter Visit Diagnoses Not on filedocumented in this encounter Additional Health Concerns Assessment Noted Time PHQ-9 Depression Total Score: 13 01/17/2019 8:17 AM CD T documented as of this encounter Care Teams Ict Support And Test Engineers Relationship Specialty Start Date End Date Rachel Gomez M.D. PCP - General Family Medicine 12/04/18 1 07/04/18 documented as of this encounter
--- OUTSIDE RECORDS SUMMARY | 2022-02-09 07:06 | XMS_ITS | Encounter Summary ---
:1970 Author Organization [facility] Address [address] [place] [address] Care Team Providers Name Role Phone Rachel Gomez M.D. 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 [address] [place] [phone] Referral ID Status Reason Start Date Expiration Date Visits Requ ested Visits Authorized [id number] Closed 01/24/2019 02/23/2019 6 6 Encounter Details Date Type Department Care Team Description 01/18/2019 Clinical Communication Department of Radiation Cristel Vance, Oncology in [place], [place], M.S. [place] [address] [facility] [address] [place] [phone] Social History Tobacco Use Types Packs/Day Years [...] 12/08/2018 organizations such as protestant groups, unions, fraAutrement ([employer]) or athletic groups, or school groups? How [...] documented as of this encounter Miscellaneous Notes Addendum Note - Sarai Vance P.A.-C., M.S. - 01/18/2019 10:15 AM CDT Addended by: SARAI VANCE on: 01/18/2019 10:15 AM Modules accepted: Orders Telephone Encounter - Sarai Vance P.A.-C., M.S. - 01/18/2019 9:44 AM CDT PET/CT order has been placed to be done in [facility]. We will also arrange Radiation Oncology consultation after the PET scan. Sarai Vance P.A.-C. ----- Message from Cassandra Ibrahim R.N. sent at 01/18/2019 9:34 AM CDT ----- Regarding: FW: Possible metastasis Sarai, Can we still try and order in [place]? Wanted to touch base with you before I work to T up order. cassandra Lundberg ----- Message ----- From: Rachel Gomez M.D. Sent: 01/16/2019 7:58 AM CDT To: Fortino Mtz M.D., Chance Lamas M.D. Subject: RE: Possible metastasis I just got a message back that says [place] will not schedule this scan for me. Any chance you canarrange this? Toño Ramos ----- Message ----- From: Chance Lamas M.D. Sent: 01/11/2019 1:58 PM CDT To: Maya Jameson M.D., Fortino Mtz M.D., # Subject: RE: Possible metastasis Dr. Gomez, Thanks for the note. Agree with PET and then she will need a biopsy of this lesion or other more accessible lesion. I called your office and told them to make sure the PET is urgent. She should be seen by rad onc soon after the PET. We can pre schedule consult with us once the date of the PET is known. Cecily, Please schedule consult with one of us the day after the PET. I placed the order. Gracia ----- Message ----- From: Rachel Gomez M.D. Sent: 01/11/2019 12:33 PM CDT To: Chance Lamas M.D. Subject: Possible metastasis Dr. Lamas, Please see my notes related to Debora. She has radicular pain in her leg and an MRI revealed a mass in her vertebra in the lumbar area that is suspicious for metastasis. You may recall she had radiation therapy for previous adenocarcinoma of the lung and you helped manage her care. I spoke with Dr. Mtz and he suggested getting a PET scan, and subsequently scheduling with you or him. Since you arefamiliar with her I thought I would ask you. I have ordered the PET scan, but you may be able to expedite? Please let me know your thoughts, Rachel Gomez MD documented in this encounter Plan of Treatment Not on filedocumented as of this encounter Results PET CT Skull to Thigh FDG (01/24/2019 9:11 AM CDT) Anatomical Region Laterality Modality Body, Nuclear Medicine PET RST LOS, PET N/A Positron Emission Tomography (PET) [facility], Nuclear Medicine PET FLA [facility] Specimen (Source) Anatomical Collection Method Collection [...] RADIOPHARMACEUTICAL/MEDS: Route: intravenous fludeoxyglucose F 18 injection RETIREMENT (FDG F-18),12.7 millicurie Procedure Note Donald Jesus [...] RADIOPHARMACEUTICAL/MEDS: Route: intravenous fludeoxyglucose F 18 injection RETIREMENT (FDG F-18),12.7 millicurie IMPRESSION: 1. L4 vertebral [...] for localized recurrence in the chest. Sarai Vance P.A.-C., M.S. IMG NM PROCEDURES documented in this encounter Visit Diagnoses Diagnosis Secondary Malignant Neoplasm Of Lung Lat erality Unknown (HCC) Secondary Malignant Neoplasm Of Lung Lat erality Unknown (HCC) documented in this encounter Additional Health Concerns Assessment Noted Time PHQ-9 Depression Total Score: 13 01/17/2019 8:17 AM CD T documented as of this encounter Care Teams Field Training Agent Relationship Specialty Start Date End Date Rachel Gomez M.D. PCP - General Family Medicine 12/04/18 1 07/04/18 documented as of this encounter
--- OUTSIDE RECORDS SUMMARY | 2022-02-09 07:07 | XMS_ITS | Encounter Summary ---
:1970 Author Organization [facility] Address [address] [place] [address] Care Team Providers Name Role Phone Unavailable Primary Care Provider Unavailable Encounter Details Date Type Department Care Team Description 09/21/2014 Ancillary Procedure Department of Oncology Social History Tobacco Use Types Packs/Day Years Used Date Smoking Tobacco: Never Assessed Alcohol Habits Answer Date Recorded How often [...] or relatives? How often do you attend gnosticist or 1 to 4 times per year 11/21 sabianist services? Do you belong to any clubs or No 12/08/2018 organizations such as gnosticist groups, unions, fraternal or athletic groups, or [...] or getting things needed for daily living? Sex Assigned at Date Recorded Not on file documented as of this encounter Plan of Treatment Not on filedocumented as of this encounter Procedures Procedure Name Priority Date/Time Associated Diagnosis Comme nts ONCOLOGY IMAGE EXAM Routine 09/21/2014 11:45 AM R esults for this CDT procedure are i n the results section. documented in this encounter Results Non-Radiology Image-Oncology Image Exam (09/21/2014 11:45 AM CDT) Specimen (Source) Anatomical Location Collection Method / Collectio n Time Received Time / Laterality Volume Narrative I[facility] - 11/08/2018 10:46 AM CDT This order has been created and auto-finalized to support the import of images acquired without order. The clini giles documentation to support these images can be found on the encounter josiah t produced images. Provider Not In System IMG NON RAD IMAGING PROCEDUR ES Performing Organization Address City/State/ZIP Code Phon e Number IIMS I[facility] NA documented in this encounter Visit Diagnoses Not on filedocumented in this encounter
--- OUTSIDE RECORDS SUMMARY | 2022-02-09 07:07 | XMS_ITS | Encounter Summary ---
:1970 Author Organization [facility] Address [address] [place] [address] Care Team Providers Name Role Phone Rachel Gomez M.D. Primary Care Provider Unavailable Encounter Details Date Type Department Care Team Description 03/04/2018 Orders Only Department of [facility] Rachel Gomez Ca rdia Vascular Disease Screening (Primary Dx); MedicineMike M.D. Screening Examination Diabetes Mellitus; Clinic, in [facility] Mammogram Average Risk Patient [place] [address] [place] [phone] Social History Tobacco Use Types Packs/Day Years Used Date Smoking Tobacco: Unknown Alcohol Habits Answer Date Recorded How often [...] as of this encounter Visit Diagnoses Diagnosis Cardiac Vascular Disease Screening - H[place] ahmet Screening Examination Diabetes Mellitus Screening Mammogram Average Risk Patient documented in this encounter Care Teams Engineering Technologist Relationship Specialty Start Date End Date Rachel Gomez M.D. PCP - General 11/05/16 documented as of this encounter
--- OUTSIDE RECORDS SUMMARY | 2022-02-09 07:07 | XMS_ITS | Encounter Summary ---
:1970 Author Organization [facility] Address [address] [place] [address] Care Team Providers Name Role Phone Rachel Gomez M.D. Primary Care Provider Unavailable Reason for Visit Reason Onset Date Comments PET CT Whole Body FDG 01/12/[address] W hole Body FDG Encounter Details Date Type Department Care Team Description 01/12/2019 Clinical Communication Department of Rachel Gomez PE CT Whole Body Family MedicineBianca M.D. FDG (Order for PET [facility], CT Whole Mark dy FDG) in [place], [place] [address] [place] [address] Social History Tobacco Use Types [...] or relatives? How often do you attend baptism or 1 to 4 times per year 11/21 holiness services? Do you belong to any clubs or No 12/08/2018 organizations such as baptism groups, unions, fraternal or athletic groups, or [...] this encounter Miscellaneous Notes Telephone Encounter - Radha Casper - 01/12/2019 10:16 AM CDT Good Day, Your order for this patient for a PET CT WHOLE BODY was discontinued. [facility] does not offer this test. If you have any further questions you may reply to this message or call us at [phone]. Thank you, [facility] Ancillary Testing Services documented in this encounter Plan of Treatment Not on filedocumented as of this encounter Visit Diagnoses Not on filedocumented in this encounter Care Teams Supervisor Fireworks Assembly Relationship Specialty Start Date End Date Rachel Gomez M.D. PCP - General Family Medicine 12/04/18 1 07/04/18 documented as of this encounter
--- OUTSIDE RECORDS SUMMARY | 2022-02-09 07:07 | XMS_ITS | Encounter Summary ---
:1970 Author Organization [facility] Address [address] [place] [address] Care Team Providers Name Role Phone Rachel Gomez M.D. Primary Care Provider Unavailable Encounter Details Date Type Department Care Team Description 03/23/2017 Orders Only Department of [facility] Rachel Gomez [facility] MedicineMike M.D. Diabetes Mellitus Clinic, in [place], [place] [address] [place] [phone] Social History Tobacco Use Types Packs/Day Years Used Date Smoking Tobacco: Former Alcohol Habits Answer Date Recorded How often [...] or relatives? How often do you attend yarsanism or 1 to 4 times per year 11/21 buddhism services? Do you belong to any clubs or No 12/08/2018 organizations such as yarsanism groups, unions, fraternal or athletic groups, or [...] Visit Diagnoses Diagnosis Screening Examination Diabetes Mellitus documented in this encounter Care Teams Gas Engineer Relationship Specialty Start Date End Date Rachel Gomez M.D. PCP - General 11/05/16 documented as of this encounter
--- OUTSIDE RECORDS SUMMARY | 2022-02-09 07:07 | XMS_ITS | Encounter Summary ---
:1970 Author Organization [facility] Address [address] [place] [address] Care Team Providers Name Role Phone Janna Foreman M.D. Primary Care Provider Unavailable Reason for Visit Reason Comments Back Pain f/u Appointment Request (Routine) - Closed Specialty Diagnoses / Procedures Referred By Contact Refer red To Contact Family Medicine Referral ID Status Reason Start Date Expiration Date Visits Requ ested Visits Authorized [id number] Closed 12/19/2018 12/19/2019 1 Encounter Details Date Type Department Care Team Description 12/27/2018 Office Visit Department of Janna Escudero Ra diculopathy Lumbar Fourth (Primary Dx); Medicine, [facility] Clinic, in [facility] Neoplasm Of Lung Lower Lobe Or Bronchus (HCC); [place] Malignant Neoplasm Of Lung ( HCC) [address] [place] [address] Social History Tobacco Use Types [...] Sign Reading Time Taken Comments Blood Pressure 122/72 12/27/2018 3:29 PM CDT Pulse 72 12/27/2018 3:29 PM CDT Temperature - - Respiratory Rate - - Oxygen Saturation - - Inhaled Oxygen Concentration - - Weight 109 kg (240 lb 8.4 oz) 12/27/2018 3:29 PM CDT Height - - Body Mass Index 39.78 10/16/2015 7:53 AM CDT documented in this encounter Patient Instructions Patient InstructionsJanna Foreman M.D. - 12/27/2018 3:45 PM CDT You can continue Advil and Tylenol as needed, along with the Medrol Dosepak. Proceed with therapy as ordered. If not improving adequately let us know and we will arrange MRI scan documented in this encounter Progress Notes Janna Foreman M.D. - 12/27/2018 3:45 PM CDT CHIEF COMPLAINT / REASON FOR VISIT Debora Valdes is a 48 y.o. female who presents for evaluation of Back Pain (f/u). HISTORY OF PRESENT ILLNESS Here for follow-up. She took the steroids after her visit on December 12 and her pain completely resolved. She felt great. A day or 2 after finishing the steroids the pain came back with a vengeance. Shefound the pain shooting into her left leg all the way down to the foot. It would vary between pain and numbness and sometimes it would feel okay if she took enough ibuprofen and Tylenol. She had no weakness. The pain in her low back persisted as well. Current Outpatient Medications Medication Sig ??? acetaminophen 325 mg capsule as needed. ??? ibuprofen (ADVIL,MOTRIN) 200 mg tablet Take 400 mg by mouth every 4 (four) hours as needed for pain. ??? levonorgestrel (MIRENA) 20 mcg/24 hours (5 yrs) 52 mg IUD by intrauterine route. OBJECTIVE BP 122/72 (BP Location: Right arm, Patient Position: Sitting, Cuff Size: Large) Pulse 72 Wt 109 kg BMI 39.78 kg/m?? PHYSICAL EXAM Back: The lower lumbar area especially at the left L4 region was slightly tender. Range of motion was good but had pain with extension rather than flexion. Extremities: Reflexes were symmetric. Normal strength and negative straight leg raising. Babinski's downgoing. Neurologic exam essentially normal, but did have slight light touch deficit on the lateralleft lower leg DIAGNOSTICS Lumbar x-ray: Appear negative other than some pre spinal calcifications at L3-4 ASSESSMENT / PLAN #1 Radiculopathy Lumbar Fourth I think will try a steroid taper. Also schedule physical therapy. Still consider MRI if persisting or worsening pain - DX Lumbar Spine 2-3 Views; Future; Expected date: 12/27/2018 Electronically signed by: Janna Foreman M.D. 12/27/18 3:49 PM Answers for HPI/ROS submitted by the patient on 12/23/2018 No general issues: Yes No eye issues: Yes No ENT issues: Yes No heart issues: Yes No respiratory issues: Yes No GI issues: Yes Back pain/stiffness: Yes No skin issues: Yes No neurologic issues: Yes Feeling down, depressed, or hopeless: Yes No blood/lymph issues: Yes No urinary/reproductive issues: Yes documented in this encounter Miscellaneous Notes Addendum Note - Janna Foreman M.D. - 12/27/2018 3:45 PM CDT Addended by: JANNA FOREMAN on: 01/11/2019 12:35 PM Modules accepted: Orders documented in this encounter Plan of Treatment Not on filedocumented as of this encounter Results DX Lumbar Spine 2-3 Views (12/27/2018 3:54 PM CDT) Anatomical Region Laterality Modality Lumbar Spine, Musculoskeletal RST LOS, Neuroradiology N/A Digital Radiography ARZ LOS, Muskuloskeletal FLA LOS Specimen (Source) Anatomical Collection Method Collection Time Re ceived Time Location / / Volume Laterality 12/27/2018 4:33 PM CDT Impressions 12/27/2018 4:34 PM CDT Mild anterolisthesis of L4 on L5. Limbus vertebrae anterosuperior endplate of the L4 vertebral body. Mild degenerative disc space narrowing L3-4 and L4-5. Mild facet arthropathy L4-5 an d L5-S1. IUD. Vascular calcifications. Narrative 12/27/2018 4:34 PM CDT EXAM: DX LUMBAR SPINE 2-3 VIEWS Procedure Note Victoriano Brown M.D. - 12/27/2018For matting of this note might be different from the original. EXAM: DX LUMBAR SPINE 2-3 VIEWS IMPRESSION: Mild anterolisthesis of L4 on L5. Limbus vertebrae anterosuperior endplate of the L4 vertebral body. Mild degenerative disc space narrowing L3-4 and L4-5. Mild facet arthropathy L4-5 an d L5-S1. IUD. Vascular calcifications. Janna Foreman M.D. IMG DIAGNOSTIC IMAGING PROCE DURES documented in this encounter Visit Diagnoses Diagnosis Radiculopathy Lumbar Fourth - Primary Mass Vertebra Malignant Neoplasm Of Lower Lobe, Bronch us Or Lung Laterality Unknown (HCC) Malignant Neoplasm Of Unspecified Part O f Lung Laterality Unknown (HCC) Radiculopathy Lumbar Fourth documented in this encounter Care Teams Real Property Appraiser Relationship Specialty Start Date End Date Janna Foreman M.D. PCP - General Family Medicine 12/04/18 1 07/04/18 documented as of this encounter
--- OUTSIDE RECORDS SUMMARY | 2022-02-09 07:07 | XMS_ITS | Encounter Summary ---
:1970 Author Organization [facility] Address [address] [place] [address] Care Team Providers Name Role Phone Rachel Gomez M.D. Primary Care Provider Unavailable Encounter Details Date Type Department Care Team Description 12/27/2018 Hospital Encounter Department of Rachel Gomez Radicu lopathy Lumbar Radiology in [place], [place] [address] [phone] Social History Tobacco Use Types Packs/Day Years [...] or relatives? How often do you attend quaker or 1 to 4 times per year 11/21 restorationism services? Do you belong to any clubs or No 12/08/2018 organizations such as quaker groups, unions, fraternal or athletic groups, or [...] as needed. 0 08/05/2015 capsule levonorgestrel (MIRENA) 20 by intrauterine 0 09/2006 mcg/24 hours (5 yrs) 52 mg route. IUD methylPREDNISolone (MEDROL Take as directed on 21 tablet 0 12/27/2018 01/03/2019 DOSEPACK) 4 mg tablet package. ibuprofen (ADVIL,MOTRIN) Take 400 mg by 0 03/30/2019 200 mg tablet mouth every 4 (four) hours as needed for pain. documented as of this encounter Miscellaneous Notes Result Encounter Note - Rachel Gomez M.D. - 12/27/2018 11:59 PM CDT Debora, The radiologist suggested there was some minimal arthritis, but really had no other notable comment. Follow up as we discussed. Rachel Gomez MD documented in this encounter Plan of Treatment Not on filedocumented as of this encounter Procedures Procedure Name Priority Date/Time Associated Diagnosis Comme nts DX LUMBAR SPINE RAD - Routine 12/27/2018 3:54 Radiculopathy Lumbar Results for this 2-3 VIEWS (most inpatients PM CDT Fourth procedure a re in and all the results outpatients) section. documented in this encounter Results DX Lumbar Spine 2-3 [...] L4-5 an d L5-S1. IUD. Vascular calcifications. Rachel Gomez M.D. IMG DIAGNOSTIC IMAGING ZARA SEPULVEDA documented in this encounter Visit Diagnoses Diagnosis Radiculopathy Lumbar Fourth documented in this encounter Care Teams Ag Equipment Field Service Technician Relationship Specialty Start Date End Date Rachel Gomez M.D. PCP - General Family Medicine 12/04/18 1 07/04/18 documented as of this encounter
--- OUTSIDE RECORDS SUMMARY | 2022-02-09 07:07 | XMS_ITS | Encounter Summary ---
:1970 Author Organization [facility] Address [address] [place] [address] Care Team Providers Name Role Phone Rachel Gomez M.D. Primary Care Provider Unavailable Encounter Details Date Type Department Care Team Description 01/11/2019 Clinical Communication Department [facility] Escud[facility], [facility], in [place], [place] [address] [place] [phone] Social History Tobacco Use Types Packs/Day Years [...] or relatives? How often do you attend rastafari or 1 to 4 times per year 11/21 baptism services? Do you belong to any clubs or No 12/08/2018 organizations such as rastafari groups, unions, fraternal or athletic groups, or [...] Miscellaneous Notes Telephone Encounter - Lucy Sierra C.MKoby - 01/19/2019 2:00 PM CDT Patient was seen in clinic for this issue Telephone Encounter - Melissa Fuentes - 01/11/2019 11:46 AM CDT Reason for Communication: pt called, returning call. Current Can Nursing/Provider leave a detailed message: yes Did the patient refuse triage through Nurse line? (for symptom based concerns): na Action Needed: Please call back Name of Medication (if relevant): na documented in this encounter Plan of Treatment Not on filedocumented as of this encounter Visit Diagnoses Not on filedocumented in this encounter Care Teams Assistant Product Manager Relationship Specialty Start Date End Date Rachel Gomez M.D. PCP - General Family Medicine 12/04/18 1 07/04/18 documented as of this encounter
--- OUTSIDE RECORDS SUMMARY | 2022-02-09 07:07 | XMS_ITS | Encounter Summary ---
:1970 Author Organization [facility] Address [address] [place] [address] Care Team Providers Name Role Phone Rachle Gomez M.D. Primary Care Provider Unavailable Reason for Visit Reason Comments Back Pain Leg Pain Appointment Request (Routine) - Closed Specialty Diagnoses / Procedures Referred By Contact Refer red To Contact Family Medicine Referral ID Status Reason Start Date Expiration Date Visits Requ ested Visits Authorized [id number] Closed 01/09/2019 01/09/2020 1 1 Encounter Details Date Type Department Care Team Description 01/17/2019 Office Visit Department of Rachel Escudero Ma ss Vertebra (Primary Medicine, Mike Ascencio Dx) Clinic, in [place], [place] [address] [phone] Social History Tobacco Use Types Packs/Day Years [...] Sign Reading Time Taken Comments Blood Pressure 122/62 01/17/2019 8:15 AM CDT Pulse 72 01/17/2019 8:15 AM CDT Temperature - - Respiratory Rate - - Oxygen Saturation - - Inhaled Oxygen Concentration - - Weight 107 kg (236 lb 5.3 oz) 01/17/2019 8:15 AM CDT Height - - Body Mass Index 39.09 10/16/2015 7:53 AM CDT documented in this encounter Progress Notes Rachel Gomez M.D. - 01/17/2019 8:30 AM CDT CHIEF COMPLAINT / REASON FOR VISIT Debora Valdes is a 48 y.o. female who presents for evaluation of Back Pain and Leg Pain. HISTORY OF PRESENT ILLNESS Here primarily because she has constant pain in her low back and left hip and upper leg area. She has a mass in her lumbar vertebra that is awaiting further evaluation, but she is wondering about something else for pain. Pgbb-isa-[id number] meds are just not helping and she is having a real hard time sleeping. She is awaiting the PET scan we are trying to get scheduled for her. Current Outpatient Medications Medication Sig ??? acetaminophen 325 mg capsule as needed. ??? ibuprofen (ADVIL,MOTRIN) 200 mg tablet Take 400 mg by mouth every 4 (four) hours as needed for pain. ??? levonorgestrel (MIRENA) 20 mcg/24 hours (5 yrs) 52 mg IUD by intrauterine route. ??? gabapentin (NEURONTIN) 300 mg capsule Take 1 at bedtime for 3 days, then twice daily for 3 days,then 3 times daily for 3 days, then add at bedtime for 3 days, then add 1 more in a.m.. Do not increase if improved, or side effects ??? traMADol (ULTRAM) 50 mg tablet Take 1-2 tablets (50-100 mg total) by mouth at bedtime as needed for moderate pain or score 4-6 of 10 Indications: Acute Pain, Acute Pain Exception, Prolonged Acute Pain/Traumatic Injury. OBJECTIVE BP 122/62 (BP Location: Right arm, Patient Position: Sitting, Cuff Size: Large) Pulse 72 Wt 107 kg BMI 39.09 kg/m?? PHYSICAL EXAM No further exam today DIAGNOSTICS ASSESSMENT / PLAN #1 Mass Vertebra I reviewed the results of her MRI again with her. We are awaiting definitive answer on the PET scan or alternately the CTs that would need to be done. We decided to try some gabapentin for the pain with tramadol for p.r.n. use at bedtime only. She is very aware of opiate concerns and will be attentiveto not over using. Other orders - traMADol (ULTRAM) 50 mg tablet; Take 1-2 tablets (50-100 mg total) by mouth at bedtime as needed for moderate pain or score 4-6 of 10 Indications: Acute Pain, Acute Pain Exception, Prolonged Acute Pain/Traumatic Injury., Starting Wed01/17/2019, Until Wed02/16/2019, Print - gabapentin (NEURONTIN) 300 mg capsule; Take 1 at bedtime for 3 days, then twice daily for 3 days, then 3 times daily for 3 days, then add at bedtime for 3 days, then add 1 more in a.m.. Do not increase if improved, or side effects, Print Electronically signed by: Rachel Gomez M.D. 01/17/19 9:16 AM Answers for HPI/ROS submitted by the patient on 01/17/2019 Loss of appetite: Yes No eye issues: Yes No ENT issues: Yes No heart issues: Yes No respiratory issues: Yes No GI issues: Yes Muscle pain/stiffness: Yes Pain or stiffness in the joints: Yes Back pain/stiffness: Yes No skin issues: Yes Numbness or shooting pain in hands, arms, legs or feet: Yes Little interest or pleasure in doing things: Yes Feeling down, depressed, or hopeless: Yes Feeling nervous, anxious or on edge: Yes Not being able to stop or control worrying: Yes No blood/lymph issues: Yes No urinary/reproductive issues: Yes documented in this encounter Plan of Treatment Not on filedocumented as of this encounter Visit Diagnoses Diagnosis Mass Vertebra - Primary documented in this encounter Additional Health Concerns Assessment Noted Time PHQ-9 Depression Total Score: 13 01/17/2019 8:17 AM CD T documented as of this encounter Care Teams Open Hearth Furnace Laborer Relationship Specialty Start Date End Date Rachel Gomez M.D. PCP - General Family Medicine 12/04/18 1 07/04/18 documented as of this encounter
--- OUTSIDE RECORDS SUMMARY | 2022-02-09 07:07 | XMS_ITS | Encounter Summary ---
:1970 Author Organization [facility] Address [address] [place] [address] Care Team Providers Name Role Phone Rachel Gomez M.D. Primary Care Provider Unavailable Encounter Details Date Type Department Care Team Description 09/01/2017 Orders Only Department of Family Rachel Gomez Sc reening Examination Diabetes Mellitus; MedicineMike M.D. Screening Mammogram Average Risk Patient Clinic, in [place], [place] [address] [place] [phone] Social History Tobacco Use Types [...] 1 to 4 times per year 11/21 yarsani services? Do you belong to any clubs [...] Diagnoses Diagnosis Screening Examination Diabetes Mellitus Screening Mammogram Average Risk Patient documented in this encounter Care Teams Engineering Equipment Operator Relationship Specialty Start Date End Date Rachel Gomez M.D. PCP - General 11/05/16 documented as of this encounter
--- OUTSIDE RECORDS SUMMARY | 2022-02-09 07:07 | XMS_ITS | Encounter Summary ---
:[address] [facility] Address [address] [place] [address] Care Team Providers Name Role Phone Rachel Gomez M.D. Primary Care Provider Unavailable Reason for Visit Reason Comments URI seen in [facility] 12/03/2018 Back Pain Appointment Request (Routine) - Closed Specialty Diagnoses / Procedures Referred By Contact Refer red To Contact Family Medicine Referral ID Status Reason Start Date Expiration Date Visits Requ ested Visits Authorized [id number] Closed 12/02/2018 12/02/2019 1 1 Encounter Details Date Type Department Care Team Description 12/12/2018 Office Visit Department of Rachel Escudero Sc iatica Left (Primary Dx); Mike Allison M.D. Rhinitis Allergic Clinic, in [place], [place] [address] [place] [phone] Social History Tobacco Use Types Packs/Day Years [...] 12/08/2018 organizations such as taoism groups, unions, fraternal or athletic groups, or [...] Sign Reading Time Taken Comments Blood Pressure 122/84 12/12/2018 8:07 AM CDT Pulse 76 12/12/2018 8:07 AM CDT Temperature 36.2 ??C (97.1 ??F) 12/12/2018 8:07 AM CDT Respiratory Rate - - Oxygen Saturation - - Inhaled Oxygen Concentration - - Weight 108 kg (237 lb 7 oz) 12/12/2018 8:07 AM CDT Height - - Body Mass Index 39.27 10/16/2015 7:53 AM CDT documented in this encounter Patient Instructions Patient InstructionsRachel Gomez M.D. - 12/12/2018 8:15 AM CDT Take prednisone for 5 days as prescribed. You can still take Advil if needed. Apply ice to the low back and left buttock area for 30 minutes 2 or 3 times daily as needed.. If persisting or worsening pain into the leg, let us know. Try [id number]-[id number] antihistamine for allergies for the next week or 10 days, then as needed. documented in this encounter Progress Notes Rachel Gomez M.D. - 12/12/2018 8:15 AM CDT CHIEF COMPLAINT / REASON FOR VISIT Debora Valdes is a 48 y.o. female who presents for evaluation of URI (seen in [facility] 12/03/2018) and Back Pain. HISTORY OF PRESENT ILLNESS Here primarily with low back pain that is been on and off for the last year and the last 2 or 3 weeks having significant episodes of pain shooting down the back of her left leg into the top of her foot. The pain comes and goes, is independent of position or activity. It has occasionally been associated with numbness, but no weakness. She does not recall injury or trauma. She had not had this before, despite having the back pain for the last year. She has tried Advil and Tylenol and did go see a chiropractor last week. She also mentions swollen glands and sinus symptoms. Her eyes are itchy. Her sinuses feel congested,not running much. As intermittent discomfort and feels like glands in her neck are just a little bitenlarged. Ears feel plugged as well. This has been going on for just a few weeks. She has not reallyhad issues with this before. She has had no fever. She has not taken anything. Current Outpatient Medications Medication Sig ??? acetaminophen 325 mg capsule as needed. ??? ibuprofen (ADVIL,MOTRIN) 200 mg tablet Take 400 mg by mouth every 4 (four) hours as needed for pain. ??? levonorgestrel (MIRENA) 20 mcg/24 hours (5 yrs) 52 mg IUD by intrauterine route. ??? predniSONE (DELTASONE) 20 mg tablet Take 2 tablets (40 mg total) by mouth daily for 5 days. OBJECTIVE BP 122/84 (BP Location: Right arm, Patient Position: Sitting, Cuff Size: Regular) Pulse 76 Temp 36.2 ??C (Temporal) Wt 108 kg BMI 39.27 kg/m?? PHYSICAL EXAM ENT: TMs are normal. Throat appears normal. Sinuses are nontender. Nares but congested. Eyes do not appear particularly injected. Has slight tenderness but minimal adenopathy that is symmetric in the neck. Back: Nontender with excellent range of motion and no pain elicited. Extremities: Normal symmetric reflexes and strength and sensation. Negative straight leg raising. Notenderness along the legs. DIAGNOSTICS ASSESSMENT / PLAN #1 Sciatica Left Decided to try a 5 day course of prednisone. Ice to the back. Consider x-rays and physical therapy. If persisting pain down the leg, may need MRI. #2 Rhinitis Allergic Symptomatic care with [id number] antihistamine. Follow up if high fever or worsening complaints Other orders - predniSONE (DELTASONE) 20 mg tablet; Take 2 tablets (40 mg total) by mouth daily for 5 days., Starting 12/12/2018, Until 12/17/2018, Normal Electronically signed by: Rachel Gomez M.D. 12/12/18 8:33 AM Answers for HPI/ROS submitted by the patient on 12/08/2018 Fatigue: Yes No eye issues: Yes Sinus congestion: Yes Rapid or fluttering heart beats: Yes No respiratory issues: Yes No GI issues: Yes Back pain/stiffness: Yes No skin issues: Yes No neurologic issues: Yes Loud snoring: Yes Feeling down, depressed, or hopeless: Yes Feeling nervous, anxious or on edge: Yes No blood/lymph issues: Yes Menses change or abnormal: Yes Incontinence (urine leakage): Yes documented in this encounter Plan of Treatment Not on filedocumented as of this encounter Visit Diagnoses Diagnosis Sciatica Left - Primary Rhinitis Allergic documented in this encounter Care Teams Manager Database Relationship Specialty Start Date End Date Rachel Gomez M.D. PCP - General Family Medicine 12/04/18 1 07/04/18 documented as of this encounter
--- OUTSIDE RECORDS SUMMARY | 2022-02-09 07:07 | XMS_ITS | Encounter Summary ---
:1970 Author Organization [facility] Address [address] [place] [address] Care Team Providers Name Role Phone Unavailable Primary Care Provider Unavailable Encounter Details Date Type Department Care Team Description 09/12/2014 Hospital Encounter HX NO MAPPING Social History Tobacco Use Types Packs/Day Years [...] Sign Reading Time Taken Comments Blood Pressure 107/67 09/12/2014 9:35 AM CDT Pulse 98 09/12/2014 6:25 AM CDT Temperature - - Respiratory Rate 16 09/12/2014 9:35 AM CDT Oxygen Saturation - - Inhaled Oxygen Concentration - - Weight 82 kg (180 lb 12.4 oz) 09/12/2014 6:25 AM CDT Height 164.2 cm (5' 4.65) 09/12/2014 6:25 AM CDT Body Mass Index 30.41 09/12/2014 6:25 AM CDT documented in this encounter Medications at Time of Discharge Medication Sig Dispensed Refills Start Date End Date levonorgestrel (MIRENA) by intrauterine route. 0 01/26/2007 20 mcg/24 hours (5 yrs) 52 mg IUD documented as of this encounter Plan of Treatment Not on filedocumented as of this encounter Visit Diagnoses Not on filedocumented in this encounter
--- OUTSIDE RECORDS SUMMARY | 2022-02-09 07:07 | XMS_ITS | Encounter Summary ---
:1970 Author Organization [facility] Address [address] [place] [address] Care Team Providers Name Role Phone Rachel Gomez M.D. Primary Care Provider Unavailable Encounter Details Date Type Department Care Team Description 01/11/2019 Orders Only Department of Radiation Chance Lamas M.D. Oncology in [place], [facility] [address] [place] [address] [place] [address] [place] [phone] Social History Tobacco Use Types Packs/Day Years [...] or relatives? How often do you attend denominational or 1 to 4 times per year 11/21 sikh services? Do you belong to any clubs or No 12/08/2018 organizations such as denominational groups, unions, fraternal or athletic groups, or [...] on filedocumented in this encounter Care Teams Accountant Supervisor Relationship Specialty Start Date End Date Rachel Gomez M.D. PCP - General Family Medicine 12/04/18 1 07/04/18 documented as of this encounter
--- OUTSIDE RECORDS SUMMARY | 2022-02-09 07:07 | XMS_ITS | Encounter Summary ---
:1970 Author Organization [facility] Address [address] [place] [address] Care Team Providers Name Role Phone Rachel Gomez M.D. Primary Care Provider Unavailable Reason for Visit MRI/CAT/PET Scan (Routine) - New Request Specialty Diagnoses / Procedures Referred By Contact Refer red To Contact Radiology Diagnoses Pain Low Back Unspecified Rachel Gomez M.D. [facility] Region Procedures MR Lumbar Spine without and with IV Contrast MR Lumbar Spine without IV Contrast AR MRI LUMB SPINE WO CNTRST AR MRI LUMB SPINE WO/W CNTRST [address] [phone] Referral ID Status Reason Start Date Expiration Date Visits V isits Requested Authorized [id number] New Request 01/11/2019 01/11/2019 1 1 Encounter Details Date Type Department Care Team Description 01/11/2019 Hospital Encounter Department of Rachel Gomez Pai n Low Back Radiology in [place] [address] [place] [phone] Social History Tobacco Use Types Packs/Day [...] or relatives? How often do you attend rastafarian or 1 to 4 times per year 11/21 christian services? Do you belong to any clubs or No 12/08/2018 organizations such as rastafarian groups, unions, fraternal or athletic groups, or [...] hours (5 yrs) route. 52 mg IUD ibuprofen (ADVIL,MOTRIN) Take 400 mg by mouth 0 03/30/2019 200 mg tablet every 4 (four) hours as needed for pain. documented as of this encounter Miscellaneous Notes Result Encounter Note - Rachel Gomez M.D. - 01/11/2019 10:20 AM CDT Evelin, As I mentioned on the phone message, your MRI shows some findings that are concerning. They found a mass in the lower lumbar spine area that will require additional evaluation. We can arrange that as soon as possible. I would assume perhaps we would send you to [facility] for that, but would need to have you confirm that and we can make arrangements. Rachel Gomez MD documented in this encounter Plan of Treatment Not on filedocumented as of this encounter Procedures Procedure Name Priority Date/Time Associated Comments Diagnosis MR LUMBAR SPINE RAD - Routine 01/11/2019 8:59 Pain Low Back Results for this WITHOUT AND WITH (most inpatients AM CDT procedu re are in IV CONTRAST and all the results outpatients) section. documented in this encounter Results MR Lumbar Spine without and with IV Contrast (01/11/2019 8:59 AM CDT) Anatomical Region Laterality Modality Lumbar Spine, Neuroradiology [facility], Neuroradiology N/A Magnetic Resonance [facility], Neuroradiology [facility] Specimen (Source) Anatomical Collection Method Collection Time Re ceived Time Location / / Volume Laterality 01/11/2019 9:21 AM CDT Impressions 01/11/2019 9:46 AM CDT 1. New enhancing, marrow replacing mass centered in the left aspect of the L4 vertebral body and also involving the le ft posterior elements. Most likely diagnostic considerations include metast asis, myeloma, lymphoma, and giant cell tumor. 2. The mass is associated with mass effe ct upon the left lateral recess at L4-5 and moderate stenosis of the left L4-5 n eural foramen. Narrative 01/11/2019 9:46 AM CDT EXAM: ??MR LUMBAR SPINE WITHOUT AND WITH IV CONTRAST COMPARISON: ?? 1. Radiographs 12/27/[address] 09/11/2014 FINDINGS: ??Since 09/11/2014, new T1 hypo intense marrow replacing mass centered in the left aspect of the L4 vertebral body and left pedicle. The mass demonstrates heterogeneous T2 signal with areas of T2 hyperintensity and T2 intermediate signal with fairly homogenous enhancemen t. Small foci of T2 hyperintensity along the margins of the mass without evidence of a fluid-fluid level. The mass also involves the left L4 lamina, spinous pro cess, and left superior and inferior articular facets of L4 and is associated with loss of cortical distinction and infiltration of the surrounding fat plan es. The mass demonstrates slight lucency and endosteal scalloping on radiographs without matrix. The mass measures approximately 5.2 x 2.8 x 2.3 cm (AP by LR by SI; series 10, image 10 and series 8, image 4). There is mass effect upon the left later al recess at L4-5 and contact of the traversing left L5 nerve root within the left lateral recess. The mass is associated with moderate stenosis of the left L4-5 neural foramen. No additional lesions are identified. Th e spinal canal and neural foramina are otherwise patent. Limbus L4 vertebral jay dy. For the purpose of this report, 5 lumbar type vertebral bodies are assumed. Conus terminates at the level of L1. Miesha se radiographic correlation recommended prior to any spinal intervention or surg jay. Procedure Note Victoriano Brown M.D. - 01/11/2019For matting of this note might be different from the original. EXAM: MR LUMBAR SPINE WITHOUT AND WITH I V CONTRAST COMPARISON: 1. Radiographs 12/27/[address] 09/11/2014 FINDINGS: Since 09/11/2014, new T1 hypoin tense marrow replacing mass centered in the left aspect of the L4 vertebral body and left pedicle. The mass demonstrates heterogeneous T2 signal with areas of T2 hyperintensity and T2 intermediate signal with fairly homogenous enhancemen t. Small foci of T2 hyperintensity along the margins of the mass without evidence of a fluid-fluid level. The mass also involves the left L4 lamina, spinous pro cess, and left superior and inferior articular facets of L4 and is associated with loss of cortical distinction and infiltration of the surrounding fat plan es. The mass demonstrates slight lucency and endosteal scalloping on radiographs without matrix. The mass measures approximately 5.2 x 2.8 x 2.3 cm (AP by LR by SI; series 10, image 10 and series 8, image 4). There is mass effect upon the left later al recess at L4-5 and contact of the traversing left L5 nerve root within the left lateral recess. The mass is associated with moderate stenosis of the left L4-5 neural foramen. No additional lesions are identified. Th e spinal canal and neural foramina are otherwise patent. Limbus L4 vertebral jay dy. For the purpose of this report, 5 lumbar type vertebral bodies are assumed. Conus terminates at the level of L1. Miesha se radiographic correlation recommended prior to any spinal intervention or surg jay. IMPRESSION: 1. New enhancing, marrow replacing mass centered in the left aspect of the L4 vertebral body and also involving the le ft posterior elements. Most likely diagnostic considerations include metast asis, myeloma, lymphoma, and giant cell tumor. 2. The mass is associated with mass effe ct upon the left lateral recess at L4-5 and moderate stenosis of the left L4-5 n eural foramen. Rachel BUSTAMANTE MRI PROCEDURES documented in this encounter Visit Diagnoses Diagnosis Pain Low Back Unspecified documented in this encounter Administered Medications Inactive Administered Medications - up to 3 most recent administrations Medication Order MAR Action Action Date Dose Rate Site gadobutrol injection 1-14 mL Given 01/11/2019 8:48 AM CDT 10 mL (GADAVIST) 1-14 mL, intravenous, Once in imaging, contrast, Starting on Wed01/11/19 at 0846, For 1 dose sodium chloride 0.9 % injection 10 mL Given 01/11/2019 8:47 AM CDT 10 mL 10 mL, intravenous, Once, On Wed01/11/19 at 0900, For 1 dose documented in this encounter Care Teams Automotive Parts Counterperson Relationship Specialty Start Date End Date Rachel Gomez M.D. PCP - General Family Medicine 12/04/18 1 07/04/18 documented as of this encounter
--- OUTSIDE RECORDS SUMMARY | 2022-02-09 07:07 | XMS_ITS | Encounter Summary ---
:1970 Author Organization [facility] Address [address] [place] [address] Care Team Providers Name Role Phone Unavailable Primary Care Provider Unavailable Encounter Details Date Type Department Care Team Description 03/11/2015 Hospital Encounter HX NO MAPPING Becka Lo REvetteNEvette Social History Tobacco Use Types Packs/Day Years [...]
--- OUTSIDE RECORDS SUMMARY | 2022-02-09 07:07 | XMS_ITS | Encounter Summary ---
:1970 Author Organization [facility] Address [address] [place] [address] Care Team Providers Name Role Phone Rachel Gomez M.D. Primary Care Provider Unavailable Reason for Visit Reason Comments Sore Throat started with a cold on 9 and now has a sore throat since 12/01 and a little bit of a cough and dr gonzalez Encounter Details Date Type Department Care Team Description 12/04/2018 [facility] [place] TManjula-Dariusz, P.A. (Primary Dx) [address] [place] [phone] Social History Tobacco Use Types Packs/Day Years [...] 1 to 4 times per year 11/21 druze services? Do you belong to any clubs [...] Sign Reading Time Taken Comments Blood Pressure 124/88 12/04/2018 8:14 AM CDT Pulse 113 12/04/2018 8:14 AM CDT Temperature 37.1 ??C (98.7 ??F) 12/04/2018 8:14 AM CDT Respiratory Rate 18 12/04/2018 8:14 AM CDT Oxygen Saturation - - Inhaled Oxygen Concentration - - Weight 107 kg (236 lb 1.8 oz) 12/04/2018 8:14 AM CDT Height - - Body Mass Index 39.05 10/16/2015 7:53 AM CDT documented in this encounter Patient Instructions Patient InstructionsJose Ramon Almanza P.A.-Dariusz, P.A. - 12/04/2018 8:00 AM CDT Images from the original note were not included. Patient Education Fluids Humidifier/vaporizer Chloraseptic spray/lozenges Salt water gargles flonase (fluticasone) Nasal saline rinse (netipot) Ibuprofen/Tylenol OTC antihistamine (claritin/zyrtec) Pharyngitis Definition -- Infection and inflammation of the pharynx that can be caused by a variety of germs. Frequent signs and symptoms: ?? Sore throat ?? Swallowing difficulty ?? Tickle or ???lump?? in the throat ?? Fever ?? Swollen glands in the neck (sometimes) ?? Generalized aching ?? Throat may be red or covered with a grayish membrane (sometimes) Causes -- Infection from bacteria, viruses or fungi. The following are the most common possibilities: ?? Bacteria: streptococci, gonococci, haemophilus, pneumococci or staphylococci ?? Viruses: mono virus and many types of respiratory viruses Risk increases with: ?? Illness that has lowered resistance ?? Smoking ?? Fatigue or overwork ?? Excess alcohol consumption ?? Diabetes mellitus ?? Close quarters, such as quarters, schools, day care ?? Immune deficiencies ?? Epidemics during which all persons are at increased risk Preventive measures ?? Avoid close contact with anyone with a sore throat ?? Keep immunizations up to date. Expected outcome -- Spontaneous recovery for most cases of viral pharyngitis. Other cases curable with antibiotics. Possible complications: ?? Epiglottitis, leading to complete breathing obstruction ?? Rheumatic fever, scarlet fever or glomerulonephritis, if pharyngitis is caused by strep bacteria and does not receive adequate antibiotic treatment ?? Pneumonia ?? Ear infection ?? Sinusitis or rhinitis General measures: ?? Home care is usually enough. ?? Hospitalization for pharyngitis caused by diphtheria or haemophilus bacteria. ?? Use gargles to relieve throat pain. Prepare double-strength tea, hot or cold, or a salt-water solution (1 teaspoon salt in 8 ounces warm water). Use to gargle as often as you wish. ?? Use a cool-mist, ultrasonic humidifier to provide moisture. This relieves the dry, tight feeling in the throat. Clean humidifier daily. ?? If glands are large and tender, apply moist, warm soaks at least 4 times a day for 30 to 60 minutes. The compresses will be more effective if they are kept warm. Be careful not to burn the skin. ?? Replace your toothbrush. It may harbor germs. ?? Until infection is gone, use separate washcloths and do not share food. Medication: ?? For minor discomfort, you may use non-prescription drugs such as acetaminophen. Do not give aspirin to a child for a viral illness. Studies link its use with the development of Jovani???s syndrome. ?? Non-prescription throat lozenges may help ease discomfort. ?? Antibiotics to fight bacterial infections. Antibiotics are not helpful with viral infections. Activity -- Limited activity is necessary until symptoms disappear. Diet -- Extra fluids are necessary. Drink at least 8 glasses of fluid daily, more for high fevers. If swallowing solid food is painful, try a liquid or soft diet for a few days. Get emergency medical care if you or a family member has ?? Breathing or swallowing difficulty ?? Chest pain Contact your health care provider if you or a family member has: symptoms of pharyngitis or the following occur during treatment: ?? Severe headache ?? Thick mucus drainage from the nose ?? Cough that produces green, yellow or bloody sputum ?? Dark urine This material is for your education and information only. This content does not replace medical advice, diagnosis or treatment. New medical research may change this information. If you have questions about a medical condition, always talk with your health care provider. ? 2014 [employer] ([facility]). All rights reserved. [id number] documented in this encounter Progress Notes Jose Ramon Almanza P.A.-C., Manjula - 12/04/2018 8:00 AM CDT SUBJECTIVE Debora Valdes is a pleasant, well-appearing 48 y.o. female who presents for evaluation and treatment of sore throat which is worse in the morning. The pain is rated 5/10. Symptoms also include nasal congestion and rhinorrhea as well as by lateral soreness of the ears and postnasal drainage. Onset 3 days, gradually worsening since that time. She did indicate that she developed a summer cold and nasal congestion approximately 6 days ago. No recent illnesses otherwise or ill contacts. Has been using Advil regularly for back pain and she does share that it helps with the sore throat. Current Outpatient Medications on File Prior to Visit Medication Sig Dispense Refill ??? acetaminophen 325 mg capsule as needed. ??? ibuprofen (ADVIL,MOTRIN) 200 mg tablet Take 400 mg by mouth every 4 (four) hours as needed for pain. No current facility-administered medications on file prior to visit. No Known Allergies Social History Tobacco Use ??? Smoking status: Former Smoker ??? Smokeless tobacco: Never Used Substance Use Topics ??? Alcohol use: Not on file OBJECTIVE BP 124/88 (BP Location: Right arm, Patient Position: Sitting, Cuff Size: Large) Pulse (!) 113 Temp 37.1 ??C (Oral) Resp 18 Wt 107 kg BMI 39.05 kg/m?? PHYSICAL EXAMINATION General appearance:healthy, alert, no distress, cooperative, smiling Ears: R TM - normal landmarks and mobility without significant erythema or bulging, L TM - normal landmarks and mobility without significant erythema or bulging Nose: normal Oropharynx: 1+ tonsils red, inflamed, with thin exudate bilaterally, pharynx normal Uvula midline Neck: normal, supple and no lymphadenopathy; trismus absent Lungs: Lungs clear bilaterally. No wheezes, rhonchi, rales. Heart: Tachycardic with regular rhythm, normal S1, normal S2, no murmur, click, gallop, or rubs. Diagnostics Results for orders placed or performed in visit on 12/04/18 Strep Group A, PCR, Point of Care Result Value Ref Range Strep Group A, PCR, POCT Collected Strep Group A, PCR, Point of Care Result Value Ref Range Strep Group A, PCR, POCT Negative Negative ASSESSMENT/PLAN 1. Pharyngitis acute Discussed patient lab results negative for strep. Likely viral causes and complication of the postnasal drainage. Discussed treating symptomatically with fluids, humidifier/vaporizer, ibuprofen/Tylenol, Chloraseptic spray/lozenges, salt water gargles, Flonase, nasal saline rinse. If symptoms worsen ordo not improve, they are to seek further medical attention. Patient's questions were answered. They voiced understanding and agree to this plan. - Strep Group A, PCR, Point of Care Jose Ramon Almanza P.A.-C., P.A. documented in this encounter Plan of Treatment Not on filedocumented as of this encounter Procedures Procedure Name Priority Date/Time Associated Diagnosis Comme nts STREP GROUP A, PCR, Routine 12/04/2018 8:50 AM Re sults for this POCT CDT procedure are i n the results section. STREP GROUP A, PCR, Routine 12/04/2018 8:36 AM Pharyngitis Acu te Results for this POCT CDT procedure are i n the results section. documented in this encounter Results Strep Group A, PCR, Point of Care (12/04/2018 8:50 AM CDT) athologist Signature Strep Group A, Negative Negative 12/04/2018 PCR, POCT 8:50 AM CDT Specimen Anatomical Collection Method Collection Time Receive d Time (Source) Location / / Volume Laterality Varies 12/04/2018 8:50 AM 9 8:58 CDT AM CDT Generic Rals LAB POCT ORDERABLES - DEVICE Performing Organization Address [facility]/ZIP Code Phon e Number [facility] [address] [place] [id number] LAB Strep Group A, PCR, Point of Care (12/04/2018 8:36 AM CDT) Analysis Performed At Patho logist Time Signature Strep Group A, Collected DEFAULT 12/04/2018 PCR, POCT 8:40 AM CDT Specimen Anatomical Collection Method Collection Time Receive d Time (Source) Location / / Volume Laterality Varies (Throat) 12/04/2018 8:36 AM 2018 8:40 CDT AM CDT Jose Ramon Almanza P.A.-C., P.A. LAB POCT ORDERABLES - DEVICE Performing Organization Address City/[facility]/ZIP Code Phon [facility] Number [facility] [address] [place] [id number] LAB documented in this encounter Visit Diagnoses Diagnosis Pharyngitis Acute - Primary documented in this encounter Care Teams Game Programmer Relationship Specialty Start Date End Date Rachel Gomez M.D. PCP - General Family Medicine 12/04/18 1 07/04/18 documented as of this encounter
--- OUTSIDE RECORDS SUMMARY | 2022-02-09 07:07 | XMS_ITS | Encounter Summary ---
:1970 Author Organization [facility] Address [address] [place] [address] Care Team Providers Name Role Phone Unavailable Primary Care Provider Unavailable Encounter Details Date Type Department Care Team Description 09/05/2014 Hospital Encounter HX [facility] Ruslan Foreman M.D. Social History Tobacco Use Types Packs/Day Years [...] Concentration - - Weight - - Height 166 cm (5' 5.35) 09/05/2014 10:20 AM CDT Body Mass Index - - documented in this encounter Medications at Time of Discharge Medication Sig Dispensed Refills Start Date End Date levonorgestrel (MIRENA) by intrauterine route. 0 01/26/2007 20 mcg/24 hours (5 yrs) 52 mg IUD documented as of this encounter Miscellaneous Notes Telephone Encounter - Conversion, Historical Provider Ser - 09/10/2014 8:42 AM CDT *Phone Message Document Contains Addenda Addendum by JEZ IGLESIAS CMA on 10 September 2014 11:17:31 CDT talked to patient and faxed to vito aguilar Addendum by JANNA FOREMAN MD on 10 September 2014 10:37:41 CDT From: JANNA FOREMAN MD To: [facility] Nurse; Sent: 09/10/2014 10:37:41 CDT Subject: RE: Rx request anti-anxiety meds/PET scan Okay. Rx printed. She should not drive after taking this. Addendum by JANNA FOREMAN MD on 10 September 2014 10:37:17 CDT Submitted: Order:LORazepam (LORazepam 0.5 mg oral tablet) 1 tab(s) PO 3xDay Qty: 20 tab(s) Refills: 0 Substitutions Allowed PRN Anxiety Print - [id number] Signed by JANNA FOREMAN MD Addendum by JEZ IGLESIAS CMA on 10 September 2014 09:19:12 CDT From: JEZ IGLESIAS CMA ([facility] Nurse) To: JANNA FOREMAN MD; Sent: 09/10/2014 09:19:12 CDT Subject: FW: Rx request anti-anxiety meds/PET scan please advise Addendum by GÓMEZ ALTMAN SRN on 10 September 2014 09:08:54 CDT From: GÓMEZ ALTMAN SRN ([facility]) To: [facility] Nurse; Sent: 09/10/2014 09:08:54 CDT Subject: Rx request anti-anxiety meds/PET scan S. I have a PET scan in [place] tomorrow and I am feelig very anxious can I get an Rx for somrthing? B. Patient states she has a PET scan in [place] and is having alot of anxiety about this. States symptoms: anxiety, panic attacks, trouble thinking rationally, heart racing. A. Request for follow up. Patient is requesting an rx for anxiety. R. Please review and advise patient. [phone] or [phone] Vito FBO From: IVANIA MAI ([address] [place]) To: JONO CASTAÑEDAmessenger copy Med [facility]; Sent: 09/10/2014 08:42:19 CDT Subject: *Phone Message Caller is: (x ) Patient ( ) Mother ( ) Father ( ) Spouse ( ) Daughter ( ) Son ( ) Pharmacy ( ) Other: Physician: [facility] Patient MRN #: Reason for Call: Message: s patient calling to speak to nurse b patient calling to give an update from her visit at [place] last night a r call her back at [phone] or [phone] Advice/Action: Source used: ( ) Verbalizes understanding of instructions ( ) Instructed to call back if symptoms worsen or do not resolve ( ) Refused to see provider ( ) Appointment Scheduled ( ) OK to leave message on voice mail ( ) Patient told to expect return call: ( ) today ( ) tomorrow ( ) next work day ( ) Patient's email ( ) Patient told physician out of office, will call upon return call on ( ) ( ) Patient told physician out of office, routed to other physician ( ) Other ( ) Call back telephone number ( ) Call back cell phone number ( ) Source: [facility] POWERCHART Document Id: [id number] Miscellaneous - Janna Foreman M.D. - 09/06/2014 3:12 PM CDT Addendum by JEZ IGLESIAS CMA on 06 September 2014 16:30:57 CDT From: JEZ IGLESIAS CMA ([facility] Nurse) To: JANNA FOREMAN MD; Sent: 09/06/2014 16:30:57 CDT Subject: FW: Addendum by JEZ IGLESIAS CMA on 06 September 2014 16:30:36 CDT Appointment is tomorrow at 8 am with engineering technical specialist she has been informed and she also knows that she needs to be fasting [facility] thanks From: JANNA FOREMAN MD To: [facility] Nurse; Sent: 09/06/2014 15:12:04 CDT Jez I called Debora this afternoon about her lung mass. Order was placed gor urgent conslut with [facility]. Can you help move that along? Thanks. Source: [facility] POWERCHART Document Id: [id number] Electronically signed by Conversion, [facility] Fence Supervisor [id number] at 10/18/2016 2:45 PM CDT documented in this encounter Plan of Treatment Not on filedocumented as of this encounter Procedures Procedure Name Priority Date/Time Associated Diagnosis Comme nts CT CHEST WITH IV Routine 09/05/2014 10:30 AM Resu lts for this CONTRAST CDT procedure are i n the results section. documented in this encounter Results CT Chest with IV Contrast (09/05/2014 10:30 AM CDT) Anatomical Region Laterality Modality Chest N/A Computed Tomography Specimen (Source) Anatomical Collection Method Collection Time Re ceived Time Location / / Volume Laterality 09/05/2014 10:30 AM CDT Impressions 09/05/2014 1:56 PM CDT 1. ??Malignant appearing 3.2 cm mass rig ht lower lobe. 2. 3 mm nodule right middle lobe. 3. 10.0 cm left hepatic mass. 4. Soft tissue thickening around the fort[place] gin of the superior mesenteric artery. FINDINGS: Within the right lower lobe posteriorly, there is a 3.2 x 3.2 cm mass. The mass has spiculated margins an d internal heterogeneity. The spiculations extend to the posterior ple ura. The mass is highly suspicious for malignancy, such as metas tasis or bronchogenic carcinoma. Within the right middle lobe, there is a 3 mm noncalcified nodule (series 3 image 182). No suspicious lymp h nodes in mediastinum, gray, or axilla. Nondedicated imaging through the upper a bdomen shows large 10.0 x 6.4 cm mass of the left hepatic lobe. The ma ss has central necrosis or fluid. Given the lung mass, this hepatic mass is suspicious for malignancy. However, the differential al so includes giant hemangioma of the liver. There is soft tissue thickening around t he origin of the superior mesenteric artery. Differential is retro peritoneal fibrosis or malignant lymphatic soft tissue. Negativ e adrenals. Otherwise negative. Narrative 09/05/2014 1:56 PM CDT EXAM: CT Chest w/ contrast INDICATION: right lung mass AGE: 43 years-old COMPARISON: Chest x-ray 08/31/14 TECHNIQUE: IV 80 mL Omnipaque contrast. Procedure Note Sunny Sargent M.D. / Rose Stovall M.D. - 2016 EXAM: CT Chest w/ contrast INDICATION: right lung mass AGE: 43 years-old COMPARISON: Chest x-ray 08/31/14 TECHNIQUE: IV 80 mL Omnipaque contrast. IMPRESSION: 1. Malignant appearing 3.2 cm mass right lower lobe. 2. 3 mm nodule right middle lobe. 3. 10.0 cm left hepatic mass. 4. Soft tissue thickening around the fortino gin of the superior mesenteric artery. FINDINGS: Within the right lower lobe posteriorly, there is a 3.2 x 3.2 cm mass. The mass has spiculated margins an d internal heterogeneity. The spiculations extend to the posterior ple ura. The mass is highly suspicious for malignancy, such as metas tasis or bronchogenic carcinoma. Within the right middle lobe, there is a 3 mm noncalcified nodule (series 3 image 182). No suspicious lymp h nodes in mediastinum, gray, or axilla. Nondedicated imaging through the upper a bdomen shows large 10.0 x 6.4 cm mass of the left hepatic lobe. The ma ss has central necrosis or fluid. Given the lung mass, this hepatic mass is suspicious for malignancy. However, the differential al so includes giant hemangioma of the liver. There is soft tissue thickening around t he origin of the superior mesenteric artery. Differential is retro peritoneal fibrosis or malignant lymphatic soft tissue. Negativ e adrenals. Otherwise negative. Suzanne Bosch(R)(CT), R.TEvette(R) IMG CT PROCEDURES documented in this encounter Visit Diagnoses Not on filedocumented in this encounter
--- OUTSIDE RECORDS SUMMARY | 2022-02-09 07:07 | XMS_ITS | Encounter Summary ---
:1970 Author Organization [facility] Address [address] [place] [address] Care Team Providers Name Role Phone Rachel Gomez M.D. Primary Care Provider Unavailable Encounter Details Date Type Department Care Team Description 01/16/2019 Clinical Communication Department [facility] Jairo Escud[facility], in [place], [place] [address] [place] [phone] Social History Tobacco Use Types Packs/Day Years [...] or relatives? How often do you attend mormon or 1 to 4 times per year 11/21 nondenominational services? Do you belong to any clubs or No 12/08/2018 organizations such as mormon groups, unions, fraternal or athletic groups, or [...] highest level of school Associate degree: shanita mcekon, 12/08/2018 you have completed or the highest technical, or vocational p ferdinandram degree you have received? Sex Assigned at Date Recorded Not on file documented as of this encounter Miscellaneous Notes Telephone Encounter - Lucy Sierra C.M.A. - 01/19/2019 2:00 PM CDT Patient was seen in clinic for this issue Telephone Encounter - Shanice Palencia - 01/16/2019 10:36 AM CDT Reason for Communication: Patient returning call to the [address] [place] [address] nurse. Current Can Nursing/Provider leave a detailed message: Did the patient refuse triage through Nurse line? (for symptom based concerns): Action Needed: phone call Name of Medication (if relevant): Telephone Encounter - Tianna Carreon - 01/16/2019 10:05 AM CDT Patient called in, returning call from 1 nurse. Unable to get a hold of nurse. Could not find documentation of call. Please call patient back. documented in this encounter Plan of Treatment Not on filedocumented as of this encounter Visit Diagnoses Not on filedocumented in this encounter Care Teams Truck Mechanic Apprentice Relationship Specialty Start Date End Date Rachel Gomez M.D. PCP - General Family Medicine 12/04/18 1 07/04/18 documented as of this encounter
--- OUTSIDE RECORDS SUMMARY | 2022-02-09 07:07 | XMS_ITS | Encounter Summary ---
:1970 Author Organization [facility] Address [address] [place] [address] Care Team Providers Name Role Phone Rachel Gomez M.D. Primary Care Provider Unavailable Encounter Details Date Type Department Care Team Description 01/09/2019 Orders Only Department of Rachel Escudero Ra diculopathy Lumbar Fourth (Primary Dx); Mike Allison M.D. [facility], in [place] [employer], [place] [address] [place] [address] Social History Tobacco Use Types [...] or relatives? How often do you attend evangelical or 1 to 4 times per year 11/21 taoism services? Do you belong to any clubs or No 12/08/2018 organizations such as evangelical groups, unions, fraternal or athletic groups, or [...] as of this encounter Visit Diagnoses Diagnosis Radiculopathy Lumbar Fourth - Primary Pain Low Back Unspecified documented in this encounter Care Teams Career Placement Specialist Relationship Specialty Start Date End Date Rachel Gomez M.D. PCP - General Family Medicine 12/04/18 1 07/04/18 documented as of this encounter
--- OUTSIDE RECORDS SUMMARY | 2022-02-09 07:07 | XMS_ITS | Encounter Summary ---
:1970 Author Organization [facility] Address [address] [place] [address] Care Team Providers Name Role Phone Unavailable Primary Care Provider Unavailable Encounter Details Date Type Department Care Team Description 09/04/2014 Hospital Encounter HX [facility] Ruslan Foreman M.D. Social History Tobacco Use [...] or relatives? How often do you attend cheondoism or 1 to 4 times per year 11/21 methodist services? Do you belong to any clubs or No 12/08/2018 organizations such as cheondoism groups, unions, fraternal or athletic groups, or [...] Sign Reading Time Taken Comments Blood Pressure 122/68 09/04/2014 4:32 PM CDT Pulse 68 09/04/2014 4:32 PM CDT Temperature - - Respiratory Rate 16 09/04/2014 4:32 PM CDT Oxygen Saturation - - Inhaled Oxygen Concentration - - Weight 87.1 kg (192 lb 0.3 oz) 09/04/2014 4:32 PM CDT Height 166 cm (5' 5.35) 09/04/2014 4:32 PM CDT Body Mass Index 31.61 09/04/2014 4:32 PM CDT documented in this encounter Medications at Time of Discharge Medication Sig Dispensed Refills Start Date End Date levonorgestrel (MIRENA) by intrauterine route. 0 01/26/2007 20 mcg/24 hours (5 yrs) 52 mg IUD documented as of this encounter Progress Notes Janna Foreman M.D. - 09/04/2014 5:45 PM CDT Free Text Note CHIEF COMPLAINT/REASON FOR VISIT Followup of a lung mass on chest x-ray HISTORY OF PRESENT ILLNESS Here for followup from [facility] Day Clinic visit last Wednesday, for further evaluation of the chest x-rayabnormality. She went in with back pain and admitted to a slight cough. A chest x-ray was obtained and found to show a probable mass in the right lower hilar area. See x-ray report. The next day the pain was actually going to. She has a still had a slight cough. She is taking Zithromax. She has not had fever. She has no unexpected weight loss, pain, fatigue. Her father had some sort of lung tumor anddied in his 50s. Debora is still a smoker, but hoping to work to quit. MEDICATIONS azithromycin: 2 tablets on day 1, then 1 tablet on days 2-5,PO,As Directed buPROPion: 37.5 mg,0.5 tab(s),PO,Daily ibuprofen: PO,PRN multivitamin: PO,Daily ALLERGIES NKA SYSTEMS REVIEW VITAL SIGNS Temperature 37.5 (16:35) Systolic Blood Pressure 122 (16:35) Diastolic Blood Pressure 68 (16:35) Pulse No result SpO2 No result Respiratory Rate 16 (16:35) PHYSICAL EXAMINATION ENT no adenopathy in the neck or in the supraclavicular area. Lymph no adenopathy in the axillae. LUNGS: Clear with a humming end-Inspiratory sound in the right medial mid chest area posteriorly and anteriorly, but otherwise clear. HEART: Rate and rhythm regular without murmur or ectopy ABDOMEN: Benign without HSM. LAB RESULTS No qualifying data available. No qualifying data available. DIAGNOSTIC RESULTS IMPRESSION/REPORT/PLAN 1. Mass Lung Comment:We have ordered a CT scan of the chest with contrast. She will have a creatinine level donetoday. I think there is some urgency to evaluate what is causing this and so would ask that this CT scan be performed very soon. Ordered: Creatinine; Routine, 09/04/14 17:13:00 CDT, Mass Lung OV Est Pt Level 3 - 62588 - 15 min; 09/04/14 17:36:00 CDT, Dx: Mass Lung Orders: 1. CT Chest w/ contrast,09/05/14 0:00:00 CDT, right lung mass, Yes, No, Routine, Walk, Send to scheduling?, * Next Available, Current Location, 09/05/14 0:00:00 CDT, Mass Lung, [facility] End of Orders Electronically Signed By: JANNA FOREMAN MD On: 09/04/2014 05:49 PM Source: NeurOp Document Id: [id number] documented in this encounter Miscellaneous Notes Telephone Encounter - Sonia Erazo - 09/11/2014 8:31 AM CDT Outside Referral LAUREL Entered by SONIA ALAS on 11 September 2014 08:31:43 CDT Referral submitted by OSRP. The following patient has a Consult to Outside Specialist Onida: order placed. Patient Name: DEBORA RUBY Diagnosis: Swelling, Mass, or Lump in Chest,, Mass, or Lump in Chest, Ordering Provider: JANNA FOREMAN MD ; Original Order DT/TM: September 06, 2014 15:08:39 CDT ; Order: Consult to Outside Specialist Onida ; Order Details: Referral For: Adult Department: Pulmonology Reason For Visit: 3.2 call cm lung mass - ??large liver met? Why Needs cannot be met : NOT FOUND Why Needs cannot be met - FH : NOT FOUND Why Needs cannot be met NICOLE : Service not available at [facility] Facility : [facility] FH : NOT FOUND Appointment Type: Consult Appointment Type - FH: NOT FOUND Subspecialty Requested: NOT FOUND Appointment Timeline: Urgent (less than 3 days) Schedule with Specific Provider, If Known: NOT FOUND Appointment has been/will be made by: My Philosophy Faculty/Office If yes, When is appointment: NOT FOUND Arc to Process Referral : NOT FOUND Special Instructions: NOT FOUND Reason to be Sent: NOT FOUND Mass Lung Source: [facility] [employer] Document Id: [id number] Electronically signed by Conversion, [facility] [address] Light Servicer Helper [id number] at 10/18/2016 2:45 PM CDT Miscellaneous - Jez Iglesias C.M.AEvette - 09/05/2014 8:47 AM CDT *General Message From: JEZ IGLESIAS CMA ([facility] Nurse) To: JANNA FOREMAN MD; Sent: 09/05/2014 08:47:53 CDT Subject: *General Message Debora's CT is at 10:30 on 09/05/14 thanks Source: [facility] [employer] Document Id: [id number] Electronically signed by Conversion, [facility] [address] Light Servicer Helper [id number] at 10/18/2016 2:45 PM CDT Miscellaneous - Jennifer Gentile, L.P.N. - 09/04/2014 5:17 PM CDT Radiology Scheduling Questionnaire Radiology Scheduling Questionnaire Entered On: 09/04/2014 17:18 CDT Performed On: 09/04/2014 17:17 CDT by JENNIFER GENTILE Radiology Scheduling Questionnaire Rad/Relevan Medications Grid Amiodarone : No Avandamet : No Glucophage : No Glucovance : No Metaglip : No Metformin : No Coumadin (warfarin) : No Plavix (clopidogrel) : No JENNIFER GENTILE - 09/04/2014 17:17 CDT Rad/Iodinated Contrast Risk Grid Asthma : No CHF : No Chronic Renal Failure : No Diabetes : No Dialysis : No Dyspnea : No Emphysema/COPD : No Gout : No Hay Fever : No Iodine Allergy : No Multiple Myeloma : No One Kidney : No : No Previous FL : No Other (document in Comments) : No JENNIFER GENTILE - 09/04/2014 17:17 CDT Previous Films : No JENNIFER GENTILE - 09/04/2014 17:17 CDT [facility] Document Id: [id number] CDT!28 Miscellaneous - Janna Foreman M.D. - 09/04/2014 5:14 PM CDT Ambulatory Patient Summary [address] [id number] Visit Information Name: DEBORA RUBY [facility] Number: [id number] Current Date: 09/04/2014 17:14:38 Physicians Attending Provider: JANNA FOREMAN MD Primary Care Provider: JANNA FOREMAN MD DEBORA RUBY has been given the following list of follow-up instructions, medication list, and patient education materials: Follow-up Instructions Your Medications Here is a list of your medications. It is important to take your medications as directed. Use a pillbox or chart to help remind you to take your medications. Please let your doctor or nurse know if you have problems taking your medications. Medication/Strength How to Take Indications/Special Instructions/Comments/Notes for Patient Medication Changes/Routing azithromycin (Azithromycin 5 Day Dose Pack 250 mg oral tablet) 2 tablets on day 1, then 1 tablet on days 2-5, Oral, as directed x 5 day(s) *buPROPion (buPROPion 75 mg oral tablet immediate release) 0.5 Tablet(s), Oral, once a day ibuprofen (Advil 200 mg oral tablet) Oral, as needed multivitamin (multivitamin) Oral, once a day * You have let us know that you are not taking this medication as listed. Please talk with your primary care provider or the health care provider who prescribed the medication as soon as possible. Stop Taking the Following Medications: Medication list as of 09-04-14 17:14 Attention: If you have any medications at home that are not on this list, DO NOT take them until youcontact your provider for clarification. Give a copy of your medication list to your primary care provider. Update your medication list any time medications or doses are changed and carry your medication list at all times in case of emergency. Electronically Signed By: JANNA FOREMAN MD Signed On:04-SEP-2014 17:14:33 Your Allergies & Intolerances Substance Reaction Symptoms Category Comments No Known Allergies Drug Your Problem List Problem Status Onset Comments Dyspnea On Exertion Active 10/25/2006 Nicotine Dependency Active 12/30/2006 Your Upcoming Appointments Date Time Location Provider No Appointments found Attention: Contact your local Clinic if further appointment detail needed. Your Goals/Additional instructions: Source: [facility] POWERCHART Document Id: [id number] Miscellaneous - Janna Foreman M.D. - 09/04/2014 5:14 PM CDT Ambulatory Discharge Medication List [facility] [address] [place] [id number] Visit Information Name: DEBORA RUBY [facility] Number: [id number] Visit Date: 09/04/2014 17:14:37 Attending Provider: JANNA FOREMAN MD Primary Care Provider: JANNA FOREMAN MD DEBORA RUBY has been given the following list of medications: Your Medications It is important to take your medications as directed. Use a pill box or chart to help remind you to take your medications. Please let your doctor or nurse know if you have problems taking your medications. Medication/Strength How to Take Indications/Special Instructions/Comments/Notes for Patient Medication Changes/Routing azithromycin (Azithromycin 5 Day Dose Pack 250 mg oral tablet) 2 tablets on day 1, then 1 tablet on days 2-5, Oral, as directed x 5 day(s) *buPROPion (buPROPion 75 mg oral tablet immediate release) 0.5 Tablet(s), Oral, once a day ibuprofen (Advil 200 mg oral tablet) Oral, as needed multivitamin (multivitamin) Oral, once a day * You have let us know that you are not taking this medication as listed. Please talk with your primary care provider or the health care provider who prescribed the medication as soon as possible. Stop Taking the Following Medications: Medication list as of 09-04-14 17:14 Attention: If you have any medications at home that are not on this list, DO NOT take them until youcontact your provider for clarification. Give a copy of your medication list to your primary care provider. Update your medication list any time medications or doses are changed and carry your medication list at all times in case of emergency. Electronically Signed By: JANNA FOREMAN MD Signed On:04-SEP-2014 17:14:33 Additional Information: Source: [facility] POWERCHART Document Id: [id number] Miscellaneous - Jez Iglesias C.MKoby - 09/04/2014 4:32 PM CDT Adult [place] Intake/History Adult [place] Intake/History Entered On: 09/04/2014 16:35 CDT Performed On: 09/04/2014 16:32 CDT by JEZ IGLESIAS CMA Intake Chief Complaint : follow up SDC Temperature Oral : 37.5 DegC(Converted to: 99.5 DegF) (HI) Peripheral Pulse Rate : 68 /min Respiratory Rate : 16 /min Systolic Blood Pressure : 122 mmHg Diastolic Blood Pressure : 68 mmHg NIBP Mean : 86 mmHg BP Location : Right upper extremity Blood Pressure Cuff Size : Large Height : 166 cm(Converted to: 5 ft 5 inch(es), 65 inch(es)) Actual Weight : 87.1 kg(Converted to: 192 lb 0 oz) Weight Source : Standing scale Dosing Weight Clinic : 87.1 kg Clinic BSA : 2 Body Mass Index : 31.61 kg/m2 JEZ IGLESIAS CMA - 09/04/2014 16:32 CDT General Info Information Given By : Patient Preferred Communication Mode : Verbal Languages : Hungarian Is Patient Female and 13-50 no hysterectomy : Yes Status : Patient denies Are you ? : No JEZ IGLESIAS [facility] - 09/04/2014 16:32 CDT Subjective Pain Symptoms : No JEZ IGLESIAS [facility] - 09/04/2014 16:32 CDT Dependent Habits Tobacco Use/Currently Using : Yes Exposure to Tobacco Smoke : Patient smokes Smoking Status : Current every day smoker JEZ IGLESIAS [facility] - 09/04/2014 16:32 CDT Tobacco Use Grid Cigarette Use Packs/Day : 0.5 JEZ IGLESIAS [facility] - 09/04/2014 16:32 CDT Alcohol Use : No JEZ IGLESIAS [facility] - 09/04/2014 16:32 CDT Caffeine Use Grid Caffeine Use : Current Type : Coffee Frequency : Daily JEZ IGLESIAS [facility] - 09/04/2014 16:32 CDT ID Screen Drug Resistant Organism : No Travel Within Last 21 Days : No Contact with someone with Ebola : No JEZ GILESIAS [facility] - 09/04/2014 16:32 CDT Source: [employer] Document Id: [id number] CDT!43 Miscellaneous - Jez Iglesias, C.M.A. - 09/04/2014 4:32 PM CDT Health Assessment Health Assessment Entered On: 09/04/2014 16:36 CDT Performed On: 09/04/2014 16:32 CDT by JEZ IGLESIAS [facility] Health Assessment Complete Health Assessment Complete or Modified : Annual Health Assessment Annual Health Assessment Completed : Yes JEZ IGLESIAS [facility] - 09/04/2014 16:32 CDT Nutrition Nutrition Risk Factors by History Adult : None JEZ IGLESIAS [facility] - 09/04/2014 16:32 CDT Functional Current Daily Living Assistance : None JEZ IGLESIAS [facility] - 09/04/2014 16:32 CDT Dependent Habits Tobacco Use/Currently Using : Yes Exposure to Tobacco Smoke : Patient smokes Smoking Status : Current every day smoker JEZ IGLESIAS [facility] - 09/04/2014 16:32 CDT Tobacco Use Grid Cigarette Use Packs/Day : 0.5 JEZ IGLESIAS [facility] - 09/04/2014 16:32 CDT Caffeine Use Grid Caffeine Use : Current Type : Coffee Frequency : Daily JEZ IGLESIAS [facility] - 09/04/2014 16:32 CDT Psychosocial Domestic Abuse Concerns : None Behavioral Health Screen/Safety Assmt : No Cheondoism Preference : No qualifying data available. JEZ IGLESIAS [facility] - 09/04/2014 16:32 CDT Advance Directive Advanced Directives : No Advance Directive Additional Information : No HARRISJEZ [facility] - 09/04/2014 16:32 CDT Educ Needs Learning Style Preference Adult Grid Patient : Demonstration Family : None JEZ IGLESIASE [facility] 09/04/2014 16:32 CDT [facility] Access Document Id: [id number] CDT!31 documented in this encounter Plan of Treatment Not on filedocumented as of this encounter Procedures Procedure Name Priority Date/Time Associated Comments Diagnosis CREATININE WITH Routine 09/04/2014 5:24 PM Result s for this EGFR, S/P CDT procedure are i n the results section. documented in this encounter Results Creatinine with eGFR (09/04/2014 5:24 PM CDT) P athologist Signature Creatinine 0.7 0.6 - 1.1 POWERCHART MGDL HXeGFR (MDRD) >60 >=60 POWERCHART [id number] eGFR >60 >=60 POWERCHART Black/ [id number] Ni[place]an Specimen (Source) Anatomical Collection Method Collection Time Re ceived Time Location / / Volume Laterality Blood 09/04/2014 5:24 PM CDT Janna Foreman M.D. LAB BLOOD ADD-ON Performing Organization Address City/State/ZIP Code Phon e Number POWERCHART documented in this encounter Visit Diagnoses Not on filedocumented in this encounter
--- OUTSIDE RECORDS SUMMARY | 2022-02-09 07:07 | XMS_ITS | Encounter Summary ---
:1970 Author Organization [facility] Address [address] [place] [address] Care Team Providers Name Role Phone Unavailable Primary Care Provider Unavailable Encounter Details Date Type Department Care Team Description 09/11/2014 Hospital Encounter HX NO MAPPING Provider, Historical Social History Tobacco Use Types Packs/Day Years [...] or relatives? How often do you attend samaritan or 1 to 4 times per year 11/21 mu-ism services? Do you belong to any clubs or No 12/08/2018 organizations such as samaritan groups, unions, fraternal or athletic groups, or [...]
--- OUTSIDE RECORDS SUMMARY | 2022-02-09 07:07 | XMS_ITS | Encounter Summary ---
:1970 Author Organization [facility] Address [address] [place] [address] Care Team Providers Name Role Phone Unavailable Primary Care Provider Unavailable Encounter Details Date Type Department Care Team Description 08/05/2015 Hospital Encounter HX [facility] Sisi Fields M.D. [address] [place] [address] (Wo rk) Social History Tobacco Use Types [...] or relatives? How often do you attend pentecostalism or 1 to 4 times per year 11/21 confucianism services? Do you belong to any clubs or No 12/08/2018 organizations such as pentecostalism groups, unions, fraternal or athletic groups, or [...] Sign Reading Time Taken Comments Blood Pressure 120/82 08/05/2015 1:29 PM CDT Pulse 72 08/05/2015 1:29 PM CDT Temperature - - Respiratory Rate 16 08/05/2015 1:29 PM CDT Oxygen Saturation - - Inhaled Oxygen Concentration - - Weight 89.9 kg (198 lb 3.1 oz) 08/05/2015 1:29 PM CDT Height 166 cm (5' 5.35) 08/05/2015 1:29 PM CDT Body Mass Index 32.62 08/05/2015 1:29 PM CDT documented in this encounter Medications at Time of Discharge Medication Sig Dispensed Refills Start Date End Date acetaminophen 325 mg as needed. 0 08/05/2015 capsule levonorgestrel (MIRENA) by intrauterine route. 0 01/26/2007 20 mcg/24 hours (5 yrs) 52 mg IUD documented as of this encounter Progress Notes Arik Fields M.D. - 08/05/2015 12:43 PM CDT [id number] CHIEF COMPLAINT/REASON FOR VISIT A 44-year-old female with a 1-day history of swelling on the medial side of the right foot after a cat bit her. She just finished chemo very recently and so there is concern for infection at this point. VITAL SIGNS Per nurse's notes on EMR today include a temp of 38.1. PHYSICAL EXAMINATION Mild erythema and swelling without induration or fluctuance at the area of the cat bite. The area inquestion extends outward about an inch in each direction. There are no red streaks going up the leg or anything else happening into the distal part of the foot. This is just distal to the ankle joint that we are seeing the swelling. No other unusual problems. IMPRESSION/REPORT/PLAN Cat bite, probable infection secondary to that. Augmentin is prescribed. Conservative measures are reviewed. Follow up as needed if not improving rapidly or if other concerns or problems should arise as necessary. Arik Fields M.D./radha Electronically Signed By: ARIK FIELDS MD On: 08/07/2015 08:25 AM Source: [facility] MHSDOLBEYNONRADSYS Document Id: [id number] documented in this encounter Miscellaneous Notes Miscellaneous - Cecily Menon - 09/03/2016 3:26 PM CDT Health Maintenance Reminder From: CECILY MENON To: DEBORA RUBY Sent: 09/03/2016 15:26:24 CDT Subject: Health Maintenance Reminder Mrs. Ruby, We have developed a six-month overview of preventive and recommended services that apply to your unique health care needs. Some may be past due or may be coming due in the next three months. If youhave already scheduled any or all of these services, thank you. We recognize that this may or may not include all of your individualized health care needs; however, we are happy to help you with any and all primary care concerns you may have. Past Due Fasting Glucose Lab Test for Diabetes Screening: recommended preventive service starting at age 18 Mammogram for Breast Cancer Screening Pap Smear Test for Cervical Cancer Screening It may be possible to bundle some of the above services together to make your visit with us more convenient. Please call [phone] to schedule services that are past due or that may shortly become due (thank you if you have already done so). We will follow up in six months should you have more services to schedule at that time. If you have already received any of the listed past due or upcoming services outside of [facility], please call [phone] to add them to your medical record. You may want to consider contacting your health insurance company to make sure these services are covered and find out if there will be any [id number] expense. If you have any questions about the services listed above, or if you are no longer receiving care from [facility], please contact us at [phone]. Thank you for partnering to provide you with the best care possible. Thank you for choosing us, Janna Foreman M.D. and the [place] [facility], for your health care needs! Source: [facility] POWERCHART Document Id: [id number] CONTENT SPECIALIST Uyencellpaula - Arik Fields M.D. - 08/05/2015 1:37 PM CDT Ambulatory Discharge Medication List [facility] [address] [place] [id number] Visit Information Name: DEBORA RUBY [facility] Number: [id number] Visit Date: 08/05/2015 13:37:38 Attending Provider: UNKNOWN1, PROVIDER Primary Care Provider: JANNA FOREMAN MD DEBORA [...] Take Indications/Special Instructions/Comments/Notes for Patient Medication Changes/Routing acetaminophen (Tylenol) See Instructions PO multivitamin (multivitamin) Oral, once a day Stop Taking the Following Medications: Medication list as of 08-05-15 13:37 Attention: If you have any medications at home that are not on this list, DO NOT take them until youcontact your provider for clarification. Give a copy of your medication list to your primary care provider. Update your medication list any time medications or doses are changed and carry your medication list at all times in case of emergency. Electronically Signed By: ARIK FIELDS MD Signed On:05-AUG-2015 13:37:36 Additional Information: Source: [facility] POWERCHART Document Id: [id number] Miscellaneous - Arik Fields M.D. - 08/05/2015 1:37 PM CDT Ambulatory Patient Summary [facility] [address] [place], [place] [id number] Visit Information Name: DEBORA RUBY [facility] Number: [id number] Current Date: 08/05/2015 13:37:38 Physicians Attending Provider: UNKNOWN1, PROVIDER Primary Care Provider: JANNA FOREMAN MD DEBORA [...] Take Indications/Special Instructions/Comments/Notes for Patient Medication Changes/Routing acetaminophen (Tylenol) See Instructions PO multivitamin (multivitamin) Oral, once a day Stop Taking the Following Medications: Medication list as of 08-05-15 13:37 Attention: If you have any medications at home that are not on this list, DO NOT take them until youcontact your provider for clarification. Give a copy of your medication list to your primary care provider. Update your medication list any time medications or doses are changed and carry your medication list at all times in case of emergency. Electronically Signed By: ARIK FIELDS MD Signed On:05-AUG-2015 13:37:36 Your Allergies & Intolerances Substance Reaction Symptoms Category Comments No Known Allergies Drug Your Problem List Problem Status Onset Comments Dyspnea On Exertion Active 10/25/2006 Nicotine Dependency Active 12/30/2006 Your Upcoming Appointments Date Time Location Provider No Appointments found Attention: Contact your local Clinic if further appointment detail needed. Consider Using Patient Online Services Patient Online Services is a secure online and Mobile application that lets you: ?? View lab and test results ?? View portions of your medical record including clinical notes, immunizations and discharge summaries ?? Request an appointment or medication refill ?? Review your appointment schedule ?? Send secure messages to your care team Its easy to create an account if you dont have one. Go to [email or web address] and click on Create Your Account. Then, follow the directions to complete the online form. Youll be asked for your [facility] number which you can find at the top of this document. Your Goals/Additional instructions: Source: [facility] POWERCHART Document Id: [id number] Miscellaneous - Jaime Hurt L.P.N. 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 Pt has just finished chemo Onset of Symptoms : x last night at 9:15 pm Temperature Oral : 38.1 DegC(Converted to: 100.6 DegF) (HI) Peripheral Pulse Rate : 72 /min Respiratory Rate : 16 /min Heart Rhythm : Regular Systolic Blood Pressure : 120 mmHg Diastolic Blood Pressure : 82 mmHg NIBP Mean : 95 mmHg BP Location : Right upper extremity Blood Pressure Cuff Size : Regular Height : 166 cm(Converted to: 5 ft 5 inch(es), 65 inch(es)) Actual Weight : 89.9 kg(Converted to: 198 lb 3 oz) Dosing Weight Clinic : 89.9 kg Clinic BSA : 2.04 Body Mass Index : 32.62 kg/m2 JAIME HURT LPN - 08/05/2015 13:29 CDT General Info Information Given By : Patient Preferred Communication Mode : Verbal Languages : British Is Patient Female and 13-50 no hysterectomy : Yes Status : Patient denies Are you ? : No JAIME HURT LPN - 08/05/2015 13:29 CDT Subjective Pain Symptoms : Yes JAIME HURT LPN 08/05/2015 13:29 CDT Pain Scale Pain Scale Verbal 0-10 : Open JAIME HURT LPN 08/05/2015 13:29 CDT Pain Pain Assessment Grid Pain 1 Location : Foot Laterality : Right JAIME HURT LPN 08/05/2015 13:29 CDT Dependent Habits Smoking Status : Former smoker Tobacco 2A : Yes Tobacco Use/Currently Using : No Tobacco Use/Last 30 Days : No Tobacco Use/Last 12 months : Yes Type : Cigarettes: Less than 20 per day, Cigarettes: 20-30 per day Tobacco Use/Advised to Quit : Yes JAIME HURT LPN 08/05/2015 13:29 CDT Caffeine Use Grid Caffeine Use : Current Type : Coffee Frequency : Daily JAIME HURT LPN - 08/05/2015 13:29 CDT Source: [facility] Matcha Document Id: [id number] CDT!47 documented in this encounter Plan of Treatment Not on filedocumented as of this encounter Visit Diagnoses Not on filedocumented in this encounter
--- OUTSIDE RECORDS SUMMARY | 2022-02-09 07:07 | XMS_ITS | Encounter Summary ---
:1970 Author Organization [facility] Address [address] [place] [address] Care Team Providers Name Role Phone Rachel Gomez M.D. Primary Care Provider Unavailable Encounter Details Date Type Department Care Team Description 01/09/2019 Orders Only [facility]NT Rachel Gomez, Screening Mammogram [facility] Breast Cancer Social History Tobacco Use Types Packs/Day Years [...] or relatives? How often do you attend yazidi or 1 to 4 times per year 11/21 zoroastrian services? Do you belong to any clubs or No 12/08/2018 organizations such as yazidi groups, unions, fraternal or athletic groups, or [...] Mammogram Breast Cancer documented in this encounter Care Teams Crematory Operator Relationship Specialty Start Date End Date Rachel Gomez M.D. PCP - General Family Medicine 12/04/18 1 07/04/18 documented as of this encounter
--- OUTSIDE RECORDS SUMMARY | 2022-02-09 07:07 | XMS_ITS | Encounter Summary ---
:1970 Author Organization [facility] Address [address] [place] [address] Care Team Providers Name Role Phone Unavailable Primary Care Provider Unavailable Encounter Details Date Type Department Care Team Description 08/31/2014 Hospital Encounter HX [facility] Fran Bermudez, P.A. -C. [address] [place] [address] (Wo rk) Social History Tobacco [...] or relatives? How often do you attend yazdanism or 1 to 4 times per year 11/21 protestant services? Do you belong to any clubs or No 12/08/2018 organizations such as yazdanism groups, unions, fraternal or athletic groups, or [...] Sign Reading Time Taken Comments Blood Pressure 120/74 08/31/2014 6:20 PM CDT Pulse 64 08/31/2014 6:20 PM CDT Temperature - - Respiratory Rate 16 08/31/2014 6:20 PM CDT Oxygen Saturation - - Inhaled Oxygen Concentration - - Weight 86.3 kg (190 lb 4.1 oz) 08/31/2014 6:20 PM CDT Height 166 cm (5' 5.35) 08/31/2014 6:20 PM CDT Body Mass Index 31.32 08/31/2014 6:20 PM CDT documented in this encounter Medications at Time of Discharge Medication Sig Dispensed Refills Start Date End Date levonorgestrel (MIRENA) by intrauterine route. 0 01/26/2007 20 mcg/24 hours (5 yrs) 52 mg IUD documented as of this encounter Progress Notes Fran Bermudez - 08/31/2014 5:43 PM CDT [id number] CHIEF COMPLAINT/REASON FOR VISIT Midback pain/tingling. HISTORY OF PRESENT ILLNESS Patient states that in the past couple of days she noticed midback pain and tingling. The patient states that she does have kind of a longstanding cough. She thinks it is probably because of the cough.She denied any wheezing, denied any shortness of breath. Patient is currently a half-pack a day smoker. She has attempted to quit before and she is requesting bupropion to be prescribed today to help her assist with quitting. Patient does have a strong family history of brain tumors. Denies any lung tumors in the family, however. She denies any other specific concerns or problems. Denied any fevers, chills. Please refer to EMR for vitals, medications, and allergies. PHYSICAL EXAMINATION GENERAL: Pleasant 43-year-old female in no appreciable distress. Alert and awake, responds appropriately to auditory and visual stimuli. LUNGS: Bilaterally have an occasional crackle. No appreciable wheezes or rhonchi I could appreciate. MUSCULOSKELETAL: Cervical and thoracic lumbar spines do not appear to be tender to palpation. Chest wall does not appear to be tender to palpation either. SKIN: Normal. No rashes. DIAGNOSTICS Chest x-ray revealed consolidation in the right lower lobe, fairly sizable, likely appearing to be of infectious etiology pending review by Radiology. IMPRESSION/REPORT/PLAN Likely pneumonia. PLAN: We are going to treat the patient today for infectious etiology with Zithromax. Did recommend fluids and rest. I did prescribe also bupropion to help her quit smoking. I did advise that she is tofollow up this lesion in the right lung to make sure that it is resolved. I did suggest a CT scan within the next couple weeks, especially if she is not better. I did answer all the questions in this regard. Fran Bermudez P.A.-C/radha Electronically Signed By: FRAN BERMUDEZ On: 09/02/2014 04:44 PM Source: [facility] MHSDOLBEYNONRADSYS Document Id: [id number] documented in this encounter Miscellaneous Notes Telephone Encounter - Conversion, Historical Provider Ser - 09/03/2014 8:23 AM CDT *Phone Message Document Contains Addenda Addendum by JEZ IGLESIAS CMA on 03 September 2014 11:01:15 CDT is on our schedule for 09/04/14 at 4:45 Addendum by JANNA FOREMAN MD on 03 September 2014 10:46:10 CDT From: JANNA FOREMAN MD To: Patricia Nurse; Sent: 09/03/2014 10:46:10 CDT Subject: RE: *Phone Message yes Addendum by IVANIA MAI on 03 September 2014 09:39:03 CDT patient called back please call her at [phone] Addendum by JEZ IGLESIAS CMA on 03 September 2014 09:24:11 CDT From: JEZ IGLESIAS CMA ([facility] Nurse) To: JANNA FOREMAN MD; Sent: 09/03/2014 09:24:11 CDT Subject: FW: *Phone Message Trying to get a hold of Debora can I add her to you late night schedule on Wednesday? looks like she will need a CT Please review notes from same day clinic Addendum by JEZ IGLESIAS CMA on 03 September 2014 09:23:02 CDT left message to call back From: IVANIA MAI ([address] Supervisor) To: JONO [facility] Nurse; Sent: 09/03/2014 08:23:53 CDT Subject: *Phone Message Caller is: ( x ) Patient ( ) Mother ( ) Father ( ) Spouse ( ) Daughter ( ) Son ( ) Pharmacy ( ) Other: Physician: Patient MRN #: Reason for Call: Message: s patient calling to speak to nurse b patient was seen in same day on wednesday has questions for you regarding a chest x-ray result a r call her back at [phone] Advice/Action: Source used: ( ) Verbalizes understanding [...] back cell phone number ( ) Source: [facility] POWERCHART Document Id: [id number] Miscellaneous - Fran Bermudez - 09/02/2014 1:08 PM CDT Results Notification Document Contains Addenda Addendum by ZANE SCOTT on 02 September 2014 13:52:51 CDT Patient notified From: RFAN BERMUDEZ V PAC To: JONO Same Day Nurse; Sent: 09/02/2014 13:08:00 CDT ! Show up: 09/02/2014 13:08:00 CDT Subject: Results Notification Actions: Notify patient of results Reminder Comments: possible right lower lung mass, recommend CT this week; called pt left request to call back Results: Date Result Type Result Name 09/02/2014 12:31 Radiology XR Chest 2 Views Source: [facility] POWERCHART Document Id: [id number] Miscellaneous - Fran Bermudez - 09/01/2014 1:43 PM CDT Ambulatory Patient Summary [facility] [address] [place], [place] [phone] Visit Information Name: DEBORA RUBY [facility] Number: [id number] Current Date: 09/01/2014 13:43:34 Physicians Attending Provider: FRAN BERMUDEZ V [facility] Primary Care Provider: JANNA FOREMAN MD DEBORA [...] 2-5, Oral, as directed x 5 day(s) New Routed to [address] buPROPion (buPROPion 75 mg oral tablet immediate release) 0.5 Tablet(s), Oral, once a day Routed to [address] [address] ibuprofen (Advil 200 mg oral tablet) Oral, as needed multivitamin (multivitamin) Oral, once a day Stop Taking the Following Medications: Medication list as of 09-01-14 13:43 Attention: If you have any medications at home that are not on this list, DO NOT take them until youcontact your provider for clarification. Give a copy of your medication list to your primary care provider. Update your medication list any time medications or doses are changed and carry your medication list at all times in case of emergency. Electronically Signed By: FRAN BERMUDEZ Signed On:01-SEP-2014 13:43:29 Your Allergies & Intolerances Substance Reaction Symptoms Category Comments No Known Allergies Drug Your Problem List Problem Status Onset Comments Dyspnea On Exertion Active 10/25/2006 Nicotine Dependency Active 12/30/2006 Your Upcoming Appointments Date Time Location Provider No Appointments found Attention: Contact your local Clinic if further appointment detail needed. Your Goals/Additional instructions: Source: [facility] POWERCHART Document Id: [id number] Miscellaneous - Fran Bermudez - 09/01/2014 1:43 PM CDT Ambulatory Discharge Medication List [address] [id number] Visit Information Name: DEBORA RUBY [facility] Number: [id number] Visit Date: 09/01/2014 13:43:33 Attending Provider: FRAN BERMUDEZ Primary Care Provider: JANNA FOREMAN MD DEBORA [...] 2-5, Oral, as directed x 5 day(s) New Routed to [address] buPROPion (buPROPion 75 mg oral tablet immediate release) 0.5 Tablet(s), Oral, once a day Routed to [address] [address] ibuprofen (Advil 200 mg oral tablet) Oral, as needed multivitamin (multivitamin) Oral, once a day Stop Taking the Following Medications: Medication list as of 09-01-14 13:43 Attention: If you have any medications at home that are not on this list, DO NOT take them until youcontact your provider for clarification. Give a copy of your medication list to your primary care provider. Update your medication list any time medications or doses are changed and carry your medication list at all times in case of emergency. Electronically Signed By: FRAN BERMUDEZ V PAC Signed On:01-SEP-2014 13:43:29 Additional Information: Source: [facility] POWERCHART Document Id: [id number] Miscellaneous - Kevin Liang, REvetteN. 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 Intake/History Entered On: 08/31/2014 18:23 CDT Performed On: 08/31/2014 18:20 CDT by KEVIN LIANG Intake Chief Complaint : mid back pain - tingling, burning, aching Onset of Symptoms : 2 days Temperature Oral : 37.0 DegC(Converted to: 98.6 DegF) Peripheral Pulse Rate : 64 /min Respiratory Rate : 16 /min Systolic Blood Pressure : 120 mmHg Diastolic Blood Pressure : 74 mmHg NIBP Mean : 89 mmHg BP Location : Right upper extremity Blood Pressure Cuff Size : Regular Height : 166 cm(Converted to: 5 ft 5 inch(es), 65 inch(es)) Actual Weight : 86.3 kg(Converted to: 190 lb 4 oz) Weight Source : Standing scale Dosing Weight Clinic : 86.3 kg Clinic BSA : 1.99 Body Mass Index : 31.32 kg/m2 KEVIN LIANG - 08/31/2014 18:20 CDT General Info Information Given By : Patient Languages : Amharic Is Patient Female and 13-50 no hysterectomy : Yes Status : Patient denies Are you ? : No KEVIN LIANG - 08/31/2014 18:20 CDT Subjective Pain Symptoms : Yes KEVIN LIANG Cristel - 08/31/2014 18:20 CDT Pain Scale Pain Scale Verbal 0-10 : Open KEVIN LIANG Cristel - 08/31/2014 18:20 CDT Pain Pain Assessment Grid Pain 1 Location : Other: mid back Intensity : 7 Time Pattern : Constant Quality : Aching, Burning, Other: tingling AZUL, KEVIN Fam - 08/31/2014 18:20 CDT Dependent Habits Tobacco Use/Currently Using : Yes Exposure to Tobacco Smoke : Patient smokes Smoking Status : Current every day smoker DEVAN LIANGGARRISON Fam - 08/31/2014 18:20 CDT Tobacco Use Grid Cigarette Use Packs/Day : 0.5 AZUL, KEVIN Fam - 08/31/2014 18:20 CDT Caffeine Use Grid Caffeine Use : Current Type : Coffee Frequency : Daily AZULDEVAN GARCIAGARRISON Fam - 08/31/2014 18:20 CDT ID Screen Travel Within Last 21 Days : No Contact with someone with Ebola : No KEVIN LIANG - 08/31/2014 18:20 CDT Source: [employer] Document Id: [id number] CDT!50 documented in this encounter Plan of Treatment Not on filedocumented as of this encounter Procedures Procedure Name Priority Date/Time Associated Diagnosis Comme nts DX CHEST AP OR PA Routine 08/31/2014 6:53 PM Resu lts for this AND LATERAL 2 VIEWS CDT procedur e are in the results section. documented in this encounter Results DX Chest Anterior Posterior or Posterior Anterior and Lateral 2 Views (08/31/2014 6:53 PM CDT) Anatomical Region Laterality Modality Chest N/A Radiographic Imaging Specimen (Source) Anatomical Collection Method Collection Time Re ceived Time Location / / Volume Laterality 08/31/2014 6:53 PM CDT Impressions 09/02/2014 12:27 PM CDT Suspect right lower lung mass. Exam opened at 09/02/2014 12:26 PM. Resul ts sent by [facility] to Dr. Fran Bermudez at 09/02/2014 12 :28 PM. Narrative 09/02/2014 12:27 PM CDT EXAM: XR Chest 2 Views INDICATION: cough, mid back pain AGE: 43 years-old COMPARISON: None. FINDINGS: Normal heart size. Right infra hilar 3.1 x 2.6 cm rounded opacity is suspicious for lung mass. Rec ommend chest CT with IV contrast. Procedure Note Sunny Sargent M.D. / Rose Stovall M.D. - 2016 EXAM: XR Chest 2 Views INDICATION: cough, mid back pain AGE: 43 years-old COMPARISON: None. FINDINGS: Normal heart size. Right infra hilar 3.1 x 2.6 cm rounded opacity is suspicious for lung mass. Rec ommend chest CT with IV contrast. IMPRESSION: Suspect right lower lung mas s. Exam opened at 09/02/2014 12:26 PM. Resul ts sent by [facility] to Dr. Fran Bermudez at 09/02/2014 12 :28 PM. Ambar Bosch(R), R.T.(MR) IMG DIAGNOSTIC IMAGI NG PROCEDURES documented in this encounter Visit Diagnoses Not on filedocumented in this encounter
--- OUTSIDE RECORDS SUMMARY | 2022-02-09 07:07 | XMS_ITS | Encounter Summary ---
:1970 Author Organization [facility] Address [address] [place] [address] Care Team Providers Name Role Phone Unavailable Primary Care Provider Unavailable Encounter Details Date Type Department Care Team Description 03/11/2015 - 03/15/2015 Hospital Encounter HX RST KRISTY 5C Social History Tobacco Use Types Packs/Day Years [...] Sign Reading Time Taken Comments Blood Pressure 123/87 03/15/2015 4:00 PM NIBP - Value from CDT [facility]. Pulse 104 03/15/2015 4:00 PM Value from artplus. CDT Temperature - - Respiratory Rate 18 03/15/2015 3:45 PM Value from Cordelia hartplus. CDT Oxygen Saturation - - Inhaled Oxygen - - Concentration Weight 84.5 kg (186 lb 4.6 03/13/2015 9:15 AM Value fro m [facility]. oz) CDT Height 166.1 cm (5' 5.39) 03/11/2015 6:29 AM CDT Body Mass Index 30.67 03/11/2015 8:10 AM CDT documented in this encounter Medications [...] nts DX CHEST AP OR PA Routine 03/15/2015 1:21 PM Resu lts for this AND LATERAL 2 VIEWS CDT procedur e are in the results section. DX CHEST 1 VIEW Routine 03/11/2015 12:21 PM Resul ts for this CDT procedure are i n the results section. HXGENERAL PATHOLOGY Routine 03/11/2015 9:23 AM Re sults for this REPORT CDT procedure are i n the results section. documented in this encounter Results DX Chest AP or PA and Lateral 2 Views (03/15/2015 1:21 PM CDT) Anatomical Region Laterality Modality Chest N/A Radiographic Imaging Specimen (Source) Anatomical Collection Method Collection Time Re ceived Time Location / / Volume Laterality 03/15/2015 1:21 PM CDT Impressions 03/15/2015 1:26 PM CDT Since 03/11/2015, the right chest tube has been removed with development of tiny apical pneumothorax. ET tube has been removed. Post-operative changes of right thoracotomy. Bibasilar atelectasis. Electronically signed by: ?? Aguila Lara MD. ??[phone] 15-Mar-2015 13: 26 ?Jazmyn Rodriguez MD [phone] 15-Mar-2015 13:26 Narrative 03/15/2015 1:26 PM CDT 15-Mar-2015 13:21:00 ??Exam: Chest-- 2 Views Indications: R/O pneumothor, S/P chest t ube removal ORIGINAL REPORT - 15-Mar-2015 13:26:00 EXAM: Chest 2 views: Procedure Note Philippe Lara M.D. - 08/19/2017Format ting of this note might be different from the original. 15-Mar-2015 13:21:00 Exam: Chest-- 2 Vie ws Indications: R/O pneumothor, S/P chest t ube removal ORIGINAL REPORT - 15-Mar-2015 13:26:00 EXAM: Chest 2 views: IMPRESSION: Since 03/11/2015, the right chest tube has been removed with development of tiny apical pneumothorax. ET tube has been removed. Post- operative changes of right thoracotomy. Bibasilar atelectasis. Electronically signed by: Aguila Lara MD. [phone] 15-Mar-2015 13:26 Jazmyn Rodriguez MD [phone] 15-Mar-2015 13:26 Yasmine Franco APRN, C.N.P., M.S. IMG DIAGNOSTIC I MAGING PROCEDURES DX Chest 1 View (03/11/2015 12:21 PM CDT) Anatomical Region Laterality Modality Chest N/A Radiographic Imaging Specimen (Source) Anatomical Collection Method Collection Time Re ceived Time Location / / Volume Laterality 03/11/2015 12:21 PM CDT Impressions 03/11/2015 12:[address] chest 03/04/2015. Right thoracotomy with right apical pleural tube and left mainstem intubation. Probable small right apical pneumothorax. No focal infiltrate or pleural fluid. Electronically signed by: ?? David Chaparro M.D. 11-Mar-2015 12:27 Narrative 03/11/2015 12:27 PM CDT 11-Mar-2015 12:21:00 ??Exam: Post OP Chest Indications: mediastinoscopy, right thor actomy ORIGINAL REPORT - 11-Mar-2015 12:27:00 EXAM: Chest; 1 view: Procedure Note David Chaparro M.D. - 08/19/2017Form atting of this note might be different from the original. 11-Mar-2015 12:21:00 Exam: Post OP Chest Indications: mediastinoscopy, right thor actomy ORIGINAL REPORT - 11-Mar-2015 12:27:00 EXAM: Chest; 1 view: IMPRESSION: Comparison CT chest 03/04/20 15. Right thoracotomy with right apical pleural tube and left mainstem intubation. Probable small right apical pneumothorax. No focal infiltrate or pleural fluid. Electronically signed by: David Chaparro M.D. 11-Mar-2015 12:27 Cora Wren M.D. IMG DIAGNOSTIC IMAGING PROCE COCO Bill general Pathology Report (03/11/2015 9:23 AM CDT) Specimen Anatomical Collection Method Collection Time Receive d Time (Source) Location / / Volume Laterality 03/11/2015 9:23 AM 5 9:23 CDT AM CDT Narrative [facility] - 03/11/2015 9:23 AM CDT ??03/11/2015 Surgical Pathology ?([id number]) ??REVISED REPORT (Addendum/Procedure in cluded) ?? Requested By: Cora Wren M.D. ??- [phone] ? SLIDE DISPOSITION: ? DIAGNOSIS: ?? A. ??Lymph node, right lower paratrache al (station 4R, set #1), biopsy: ??Fragments of lymph node, nega tive for tumor. ?? B. ??Lymph node, left lower paratrachea l (station 4L), biopsy: ?? Fragments of lymph node, negative for t umor. ?? C. ??Lymph node, subcarinal (station 7, set #1), biopsy: ??Fragments of lymph node, positive for adenocarcin rohan. ?? D. ??Lymph node, right tracheobronchial angle, biopsy: ??Fragments of lymph node, negative for tumor. ?? E. ??Lymph node, right tracheobronchial angle set #2, biopsy: ?? Fragments of lymph node, negative for t umor. ?? F. ??Lymph node, right pulmonary ligame nt (station 9R), biopsy: ??A single (1) lymph node is negative for t umor. ?? G. ??Lymph node, subcarinal (station 7, set #2), biopsy: ??A single (1) lymph node is positive for metastat ic adenocarcinoma. ?? H. ??Lung, right lower lobe, lobectomy: ??Invasive poorly differentiated adenocarcinoma, 2.7 cm i n greatest dimension. ?? Visceral pleural invasion is present. ? ?The bronchial margin is negative for tumor by 4.5 cm. ??A singl e (1 of 1) intrapulmonary peribronchial lymph node is involved by metastatic carcinoma. ??See Synoptic Report. ?? I. ??Lymph node, right lower paratrache al (station 4R, set #2), dissection: ??Multiple (2) lymph nodes are negative for tumor. ?? This final pathology report is based on the gross/macroscopic examination and the frozen section hist ologic evaluation of the specimen(s). A revised report will be i ssued to document the final interpretation after review of the Benjamin toxylin and Eosin (H&E) permanent sections. ? Participated in interpretation: ??Aniket Rob M.D., Ph.D. ?? Synoptic Report: Specimen: ??Lung. Procedure(s): ??Lobectomy. Laterality: Right. ?? Specimen Integrity: ??Intact. Tumor Site: ??Lower lobe. Tumor Focality: ??Unifocal. Tumor Size: ??2.7 x 2.4 x 2.0 cm. Histologic Type: ??Invasive adenocarcin rohan, acinar predominant (100%). Histologic Grade: Moderately differenti ated. Visceral Pleura Invasion: ??Present. Tumor Extension: ??Not applicable. Surgical Margins: ??All margins uninvol kwame by invasive and in situ carcinoma, closest bronchial margin by 4.5 cm. Treatment Effect: ??No appreciable alexsander tment effect. Lymphovascular Invasion: ??Indeterminat e. Non-neoplastic Lung: ??Will be reported in an addendum. Pathologic Staging Descriptors: y Pathologic Staging (AJCC, 7th edition): ? Primary tumor: ??pT2a ? Regional lymph nodes: pN2 ? Num yazan examined (total): 5 and multiple fragments of lymph node. ? Num yazan involved (total): 2 and multiple fragments of lymph node. ? Distant Metastasis: ? ?Not applicable. ?? The synoptic report incorporates inform ation from all relevant surgical material and includes all requ ired data elements of the current CAP Cancer Protocol. ? 03/12/2015 08:07 Interpreted by: Tanner Leyva M.D. [id number] Report electronically signed by Tanner Leyva M.D. Transcribed by: [email or web address] 03/11/2015 16:31: 30 ?ADDENDUM: Background lung parenchyma shows patchy airway centric fibrosis with associated respiratory bronchiolitis an d airspace enlargement. ?? Frozen section interpretation has been confirmed by Hematoxylin and Eosin (H&E) permanent section review. ? Transcribed by: ??[email or web address] ??03/12/2015 11 :49:35 ? Signed by Tanner Leyva M.D. 02/22 15:49:49 ? GROSS DESCRIPTION: A. ??Received fresh labeled station 4 right lymph node is a 1.2 x 0.6 x 0.3 cm aggregate of lymphatic and adipose tissue. ??All submitted. ??Grossed by HÉCTOR. ?? B. ??Received fresh labeled station 4 left lymph node is a 0.9 x 0.5 x 0.4 cm aggregate of lymphatic and adipose tissue. ??All submitted. ??Grossed by HÉCTOR. ?? C. ??Received fresh labeled station 7 lymph node is a 1.7 x 0.6 x 0.5 cm aggregate of fragmented lymphati c tissue. ??All submitted. ?? Grossed by HÉCTOR. ?? D. ??Received fresh labeled right trac heal bronchial angle node is a 0.6 x 0.5 x 0.2 cm aggregate of lymph atic and adipose tissue. ??All submitted. ??Grossed by TWC. ?? E. ??Received fresh labeled right trac heal bronchial angle node, set 2 is a 0.6 x 0.3 x 0.2 cm aggregate of lymphatic and adipose tissue. ??All submitted. ??Grossed by Marcella ALVAREZ. ?? F. ??Received fresh labeled station 9 right lymph node is a 0.4 x 0.2 x 0.2 cm fragment of lymphatic tiss ue. ??All submitted. ??Grossed by HÉCTOR. ?? G. ??Received fresh labeled station 7 lymph node, set 2 is a 3.2 x 2.0 x 1.6 cm fragmented lymphatic tissu e. ??All submitted. ??Grossed by TWC. ?? H. ??Received fresh labeled right lowe r lobe lung is a 180 gram lobectomy. ??There is a 2.7 x 2.4 x 2.0 cm well-circumscribed, solid, braden-yellow mass located peripherally, 4 .5 cm from the shaved bronchial margin. ??The mass umbilicate s the visceral pleura which is inked and submitted perpendicularly. ?? A single, grossly suspicious peribronchial lymph node is identified. ??Research tissue procured for IRB #[id number]. ??Ferryboat Captain se ctions submitted. ??Grossed by TWC. ?? I. ??Received fresh labeled station 4 right lymph node set 2 is a 2.2 x 1.3 x 0.7 cm aggregate of lymphat ic and adipose tissue. ??Lymph nodes submitted. ??Grossed by HÉCTOR. ?? BLOCK SUMMARY: Part A: ??Station 4 right lymph node ?[address] (A1) ?? Part B: ??Station 4 left lymph node ?[address] (B1) ?? Part C: ??Station 7 lymph node ?[address] (C1) ?? Part D: ??Right trachial bronchial angl e node ?1 Rt trach/bronch LN (D1) ?? Part E: ??Right tracheal bronchial angl e node #2 ?1 Rt trach/bronch LN #2 (E1) ?? Part F: ??Station 9 right lymph node ?[address] (F1) ?? Part G: ??Station 7 lymph node, set 2 ?[address] 1of3(G1) ?[address] 2of3(G1) ?[address] 3of3(G1) ?? Part H: ??Right lower lobe lung ?1 Bronchial margin ?2 Mass to pleura ?3 Hylum ?4 Mass to pleura 2 ?5 Mass to pleura 3 ?6 Normal lung ?? Part I: ??Station 4 right lymph node #2 ?[address] 1 (I1) ?[address] 1 (I2) ? Procedure Note 08/14/2017 03/11/2015 Surgical Pathology ([id number]) REVISED REPORT (Addendum/Procedure incl uded) Requested By: Cora Wren M.D. [phone] SLIDE DISPOSITION: DIAGNOSIS: A. Lymph node, right lower paratracheal (station 4R, set #1), biopsy: Fragments of lymph node, negati ve for tumor. B. Lymph node, left lower paratracheal (station 4L), biopsy: Fragments of lymph node, negative for t umor. C. Lymph node, subcarinal (station 7, s et #1), biopsy: Fragments of lymph node, positive for adenocarcin rohan. D. Lymph node, right tracheobronchial a ngle, biopsy: Fragments of lymph node, negative for tumor. E. Lymph node, right tracheobronchial a ngle set #2, biopsy: Fragments of lymph node, negative for t umor. F. Lymph node, right pulmonary ligament (station 9R), biopsy: A single (1) lymph node is negative for t umor. G. Lymph node, subcarinal (station 7, s et #2), biopsy: A single (1) lymph node is positive for metastat ic adenocarcinoma. H. Lung, right lower lobe, lobectomy: I nvasive poorly differentiated adenocarcinoma, 2.7 cm i n greatest dimension. Visceral pleural invasion is present. T he bronchial margin is negative for tumor by 4.5 cm. A single (1 of 1) intrapulmonary peribronchial lymph node is involved by metastatic carcinoma. See Synoptic Report. I. Lymph node, right lower paratracheal (station 4R, set #2), dissection: Multiple (2) lymph nodes ar e negative for tumor. This final pathology report is based on the gross/macroscopic examination and the frozen section hist ologic evaluation of the specimen(s). A revised report will be i ssued to document the final interpretation after review of the Benjamin toxylin and Eosin (H&E) permanent sections. Participated in interpretation: Aniket Rob M.D., Ph.D. Synoptic Report: Specimen: Lung. Procedure(s): Lobectomy. Laterality: Right. Specimen Integrity: Intact. Tumor Site: Lower lobe. Tumor Focality: Unifocal. Tumor Size: 2.7 x 2.4 x 2.0 cm. Histologic Type: Invasive adenocarcinom a, acinar predominant (100%). Histologic Grade: Moderately differenti ated. Visceral Pleura Invasion: Present. Tumor Extension: Not applicable. Surgical Margins: All margins uninvolve d by invasive and in situ carcinoma, closest bronchial margin by 4.5 cm. Treatment Effect: No appreciable treatm ent effect. Lymphovascular Invasion: Indeterminate. Non-neoplastic Lung: Will be reported i n an addendum. Pathologic Staging Descriptors: y Pathologic Staging (AJCC, 7th edition): Primary tumor: pT2a Regional lymph nodes: pN2 Number examined (total): 5 and multiple fragments of lymph node. Number involved (total): 2 and multiple fragments of lymph node. Distant Metastasis: Not applicable. The synoptic report incorporates inform ation from all relevant surgical material and includes all requ ired data elements of the current CAP Cancer Protocol. 03/12/2015 08:07 Interpreted by: Tanner Leyva M.D. [id number] Report electronically signed by Tanner Leyva M.D. Transcribed by: [email or web address] 03/11/2015 16:31: 30 ADDENDUM: Background lung parenchyma shows patchy airway centric fibrosis with associated respiratory bronchiolitis an d airspace enlargement. Frozen section interpretation has been confirmed by Hematoxylin and Eosin (H&E) permanent section review. Transcribed by: [email or web address] 03/12/2015 11:49: 35 Signed by Tanner Leyva M.D. 02/22 15:49:49 GROSS DESCRIPTION: A. Received fresh labeled station 4 ri ght lymph node is a 1.2 x 0.6 x 0.3 cm aggregate of lymphatic and adipose tissue. All submitted. Grossed by HÉCTOR. B. Received fresh labeled station 4 le ft lymph node is a 0.9 x 0.5 x 0.4 cm aggregate of lymphatic and adipose tissue. All submitted. Grossed by HÉCTOR. C. Received fresh labeled station 7 ly mph node is a 1.7 x 0.6 x 0.5 cm aggregate of fragmented lymphati c tissue. All submitted. Grossed by HÉCTOR. D. Received fresh labeled right trache al bronchial angle node is a 0.6 x 0.5 x 0.2 cm aggregate of lymph atic and adipose tissue. All submitted. Grossed by TWC. E. Received fresh labeled right trache al bronchial angle node, set 2 is a 0.6 x 0.3 x 0.2 cm aggregate of lymphatic and adipose tissue. All submitted. Grossed by TWC. F. Received fresh labeled station 9 ri ght lymph node is a 0.4 x 0.2 x 0.2 cm fragment of lymphatic tiss ue. All submitted. Grossed by HÉCTOR. G. Received fresh labeled station 7 ly mph node, set 2 is a 3.2 x 2.0 x 1.6 cm fragmented lymphatic tissu e. All submitted. Grossed by TW. H. Received fresh labeled right lower lobe lung is a 180 gram lobectomy. There is a 2.7 x 2.4 x 2.0 c m well-circumscribed, solid, braden-yellow mass located peripherally, 4 .5 cm from the shaved bronchial margin. The mass umbilicates the visceral pleura which is inked and submitted perpendicularly. A single, grossly suspicious peribronchial lymph node is identified. Research tissue procured for IRB #[id number]. Ferryboat [employer] sect ions submitted. Grossed by TW. I. Received fresh labeled station 4 ri ght lymph node set 2 is a 2.2 x 1.3 x 0.7 cm aggregate of lymphat ic and adipose tissue. Lymph nodes submitted. Grossed by HÉCTOR. BLOCK SUMMARY: Part A: Station 4 right lymph node [address] (A1) Part B: Station 4 left lymph node [address] (B1) Part C: Station 7 lymph node [address] (C1) Part D: Right trachial bronchial angle node 1 Rt trach/bronch LN (D1) Part E: Right tracheal bronchial angle node #2 1 Rt trach/bronch LN #2 (E1) Part F: Station 9 right lymph node [address] (F1) Part G: Station 7 lymph node, set [address] 1of3(G1) [address] 2of3(G1) [address] 3of3(G1) Part H: Right lower lobe lung 1 Bronchial margin 2 Mass to pleura 3 Hylum 4 Mass to pleura 2 5 Mass to pleura 3 6 Normal lung Part I: Station 4 right lymph node #[address] 1 (I1) [address] 1 (I2) K David Wren M.D. LAB PATHOLOGY/CYTOLOGY ORDER MASHA Performing Organization Address City/State/ZIP Code Phon e Number [facility] - [address] documented in this encounter Visit Diagnoses Not on filedocumented in this encounter
--- OUTSIDE RECORDS SUMMARY | 2022-02-09 07:07 | XMS_ITS | Encounter Summary ---
:1970 Author Organization [facility] Address [address] [place] [address] Care Team Providers Name Role Phone Rachel Gomez M.D. Primary Care Provider Unavailable Encounter Details Date Type Department Care Team Description 01/17/2019 Clinical Communication [facility], in [place], [place] [address] [place] [phone] Social History Tobacco Use Types Packs/Day Years [...] or relatives? How often do you attend bahai or 1 to 4 times per year 11/21 amish services? Do you belong to any clubs or No 12/08/2018 organizations such as bahai groups, unions, fraternal or athletic groups, or [...] Encounter - Lucy Sierra C.M.A. - 01/19/2019 1:52 PM CDT Clarified with pharmacy Telephone Encounter - Tianna Carreon - 01/17/2019 1:37 PM CDT Reason for Communication: [facility] just called in. They received a script for patient's gabapentin, but they need clarification on the dosing. 3x a day or 5x a day. Current Can Nursing/Provider leave a detailed message: Did the patient refuse triage through Nurse line? (for symptom based concerns): Action Needed: Please call pharmacy back. Name of Medication (if relevant): Gabapentin documented in this encounter Plan of Treatment Not on filedocumented as of this encounter Visit Diagnoses Not on filedocumented in this encounter Additional Health Concerns Assessment Noted Time PHQ-9 Depression Total Score: 13 01/17/2019 8:17 AM CD T documented as of this encounter Care Teams Hand Drawer In Relationship Specialty Start Date End Date Rachel Gomez M.D. PCP - General Family Medicine 12/04/18 1 07/04/18 documented as of this encounter
--- OUTSIDE RECORDS SUMMARY | 2022-02-09 07:08 | XMS_ITS | Encounter Summary ---
:1970 Author Organization [facility] Address [address] [place] [address] Care Team Providers Name Role Phone Unavailable Primary Care Provider Unavailable Encounter Details Date Type Department Care Team Description 05/01/2005 Hospital Encounter [facility]X [facility] Ruslan Gomez M.D. Social History Tobacco Use Types Packs/Day [...]
--- OUTSIDE RECORDS SUMMARY | 2022-02-09 07:08 | XMS_ITS | Encounter Summary ---
:1970 Author Organization [facility] Address [address] [place] [address] Care Team Providers Name Role Phone Unavailable Primary Care Provider Unavailable Encounter Details Date Type Department Care Team Description 12/30/2006 Hospital Encounter HX [facility] Ruslan Gomez M.D. Social History Tobacco Use [...] or relatives? How often do you attend presybeterian or 1 to 4 times per year 11/21 buddhism services? Do you belong to any clubs or No 12/08/2018 organizations such as presybeterian groups, unions, fraternal or athletic groups, or [...]
--- OUTSIDE RECORDS SUMMARY | 2022-02-09 07:08 | XMS_ITS | Encounter Summary ---
:1970 Author Organization [facility] Address [address] [place] [address] Care Team Providers Name Role Phone Unavailable Primary Care Provider Unavailable Encounter Details Date Type Department Care Team Description 11/08/2004 Hospital Encounter [facility] Jorge Blum W, P.A. [address] [place], [place] [address] (Wo rk) Social History Tobacco Use Types [...] 1 to 4 times per year 11/21 catholic services? Do you belong to any clubs [...]
--- OUTSIDE RECORDS SUMMARY | 2022-02-09 07:08 | XMS_ITS | Encounter Summary ---
:1970 Author Organization [facility] Address [address] [place] [address] Care Team Providers Name Role Phone Unavailable Primary Care Provider Unavailable Encounter Details Date Type Department Care Team Description 04/12/2013 Hospital Encounter HX [facility] Janna Foreman M.D. Social History Tobacco Use Types [...] 1 to 4 times per year 11/21 adventist services? Do you belong to any clubs [...] documented as of this encounter Miscellaneous Notes Miscellaneous - Janna Foreman M.D. - 04/13/2013 12:51 PM CST General Message From: JANNA FOREMAN MD To: SONNY RUBY Sent: 04/13/2013 12:51:33 [employer]INE DIESEL MECH[employer]IC Subject: General Message Sonny , Your lab results are normal!! Janna Foreman MD Results: Date Result Name Value Ref Range 04/12/2013 07:14 Glucose Fasting 98 mg/dL (70 - 99) 04/12/2013 07:14 Hgb A1c 5.2 % (4.0 - 6.0) Source: [facility] POWERCHART Document Id: [id number] Electronically signed by Conversion, [facility] Medical Officer Psychiatry [id number] at 10/21/2016 3:40 PM CDT documented in this encounter Plan of Treatment Not on filedocumented as of this encounter Procedures Procedure Name Priority Date/Time Associated Comments Diagnosis HEMOGLOBIN A1C, B Routine 04/12/2013 7:14 AM Resu lts for this [employer] DIESEL MECH[employer]IC procedure are i n the results section. GLUCOSE, FASTING, Routine 04/12/2013 7:14 AM Resu lts for this S/P [employer] DIESEL MECHANIC procedure are i n the results section. documented in this encounter Results Glucose, Fasting (04/12/2013 7:14 AM MARINE DIESEL MECHANIC) P athologist Signature Glucose, 98 70 - 99 POWERCHART Fasting, S MGDL Specimen (Source) Anatomical Collection Method Collection Time Re ceived Time Location / / Volume Laterality Blood 04/12/2013 7:14 AM [employer]EL MECH[employer] Janna Foreman M.D. LAB BLOOD NON ADD-ON Performing Organization Address City/State/[facility] Code Phon e Number POWERCHART Hemoglobin A1c (04/12/2013 7:14 AM MARINE DIESEL MECHANIC) P athologist Signature Hemoglobin A1c, 5.2 4.0 - 6.0 POWERCHART B Specimen (Source) Anatomical Collection Method Collection Time Re ceived Time Location / / Volume Laterality Blood 04/12/2013 7:14 AM [employer]EL MECH[employer]IC Janna Foreman M.D. LAB BLOOD ADD-ON Performing Organization Address City/State/ZIP Code Phon e Number POWERCHART documented in this encounter Visit Diagnoses Not on filedocumented in this encounter
--- OUTSIDE RECORDS SUMMARY | 2022-02-09 07:08 | XMS_ITS | Encounter Summary ---
:1970 Author Organization [facility] Address [address] [place] [address] Care Team Providers Name Role Phone Unavailable Primary Care Provider Unavailable Encounter Details Date Type Department Care Team Description 07/29/2004 Hospital Encounter [facility]X [facility] Ruslan [...]
--- OUTSIDE RECORDS SUMMARY | 2022-02-09 07:08 | XMS_ITS | Encounter Summary ---
:1970 Author Organization [facility] Address [address] [place] [address] Care Team Providers Name Role Phone Unavailable Primary Care Provider Unavailable Encounter Details Date Type Department Care Team Description 09/18/2004 Hospital Encounter HX [facility] Ruslan Gomez M.D. Social History Tobacco Use [...] or relatives? How often do you attend hinduism or 1 to 4 times per year 11/21 catholic services? Do you belong to any clubs or No 12/08/2018 organizations such as hinduism groups, unions, fraternal or athletic groups, or [...]
--- OUTSIDE RECORDS SUMMARY | 2022-02-09 07:08 | XMS_ITS | Encounter Summary ---
:1970 Author Organization [facility] Address [address] [place] [address] Care Team Providers Name Role Phone Unavailable Primary Care Provider Unavailable Encounter Details Date Type Department Care Team Description 06/05/2003 Hospital Encounter HX [facility] Ruslan [...] 1 to 4 times per year 11/21 yarsanism services? Do you belong to any clubs or No 12/08/2018 organizations such as orthodox groups, unions, fraternal or athletic groups, or [...]
--- OUTSIDE RECORDS SUMMARY | 2022-02-09 07:08 | XMS_ITS | Encounter Summary ---
:1970 Author Organization [facility] Address [address] [place] [address] Care Team Providers Name Role Phone Unavailable Primary Care Provider Unavailable Encounter Details Date Type Department Care Team Description 05/23/2004 Hospital Encounter [facility] Jorge Blum W, P.A. [address] [place], [place] [id number] (Wo rk) Social History Tobacco Use Types [...] 1 to 4 times per year 11/21 congregational services? Do you belong to any clubs [...]
--- OUTSIDE RECORDS SUMMARY | 2022-02-09 07:08 | XMS_ITS | Encounter Summary ---
:1970 Author Organization [facility] Address [address] [place] [address] Care Team Providers Name Role Phone Unavailable Primary Care Provider Unavailable Encounter Details Date Type Department Care Team Description 11/28/2004 Hospital Encounter [facility] OBGYN Provider, Histor ical Social History Tobacco Use Types Packs/Day Years [...] 1 to 4 times per year 11/21 shinto services? Do you belong to any clubs [...]
--- OUTSIDE RECORDS SUMMARY | 2022-02-09 07:08 | XMS_ITS | Encounter Summary ---
:1970 Author Organization [facility] Address [address] [place] [address] Care Team Providers Name Role Phone Unavailable Primary Care Provider Unavailable Encounter Details Date Type Department Care Team Description 12/10/2004 Hospital Encounter [facility] Provider, [...] or relatives? How often do you attend faith or 1 to 4 times per year 11/21 latter-day services? Do you belong to any clubs or No 12/08/2018 organizations such as faith groups, unions, fraternal or athletic groups, or [...]
--- OUTSIDE RECORDS SUMMARY | 2022-02-09 07:08 | XMS_ITS | Encounter Summary ---
:1970 Author Organization [facility] Address [address] [place] [address] Care Team Providers Name Role Phone Unavailable Primary Care Provider Unavailable Encounter Details Date Type Department Care Team Description 06/12/2003 Hospital Encounter [facility] Ruslan [...] 1 to 4 times per year 11/21 congregation services? Do you belong to any clubs [...]
--- OUTSIDE RECORDS SUMMARY | 2022-02-09 07:08 | XMS_ITS | Encounter Summary ---
:1970 Author Organization [facility] Address [address] [place] [address] Care Team Providers Name Role Phone Unavailable Primary Care Provider Unavailable Encounter Details Date Type Department Care Team Description 06/11/2005 Hospital Encounter [facility] Ruslan [...]
--- OUTSIDE RECORDS SUMMARY | 2022-02-09 07:08 | XMS_ITS | Encounter Summary ---
:1970 Author Organization [facility] Address [address] [place] [address] Care Team Providers Name Role Phone Unavailable Primary Care Provider Unavailable Encounter Details Date Type Department Care Team Description 03/30/2013 Hospital Encounter [facility] Rachel Brooke M.D. Social History Tobacco Use Types Packs/Day [...] or relatives? How often do you attend taoist or 1 to 4 times per year 11/21 sikh services? Do you belong to any clubs or No 12/08/2018 organizations such as taoist groups, unions, fraternal or athletic groups, or [...] Name Priority Date/Time Associated Diagnosis Comme nts BI BREAST SCREENING Routine 03/30/2013 4:07 PM Re sults for this BILATERAL MECHANIC FOREMAN procedure are i n the results section. documented in this encounter Results BI Breast Screening Bilateral (03/30/2013 4:07 PM MECHANIC FOREMAN) Anatomical Region Laterality Modality Breast Bilateral Mammography Specimen (Source) Anatomical Collection Method Collection Time Re ceived Time Location / / Volume Laterality 03/30/2013 4:07 PM MECHANIC FOREMAN Impressions 03/31/2013 10:19 AM MECHANIC FOREMAN Recommendations: ??I recommend a follow-up mammogram in 1 year, self breast exams at least once pe r month and clinical breast exam at least once per year. ??Of note, benign findings should not deter biopsy in the setting of a palpabl e abnormality. ??The false negative rate of mammography is approxim ately 10%. CODE: 1-NEGATIVE Appropriate letter sent. Full field digital mammography is used a nd Computer Aided Detection is performed on the digital mammogram im ages. Narrative 03/31/2013 10:19 AM MECHANIC FOREMAN EXAM: MA Mammo Screening w/ CADD INDICATION: screening ? AGE: 42 years-old COMPARISON: None. Baseline. VIEWS: MLO and CC views of bilateral makayla asts. Right exaggerated CC FINDINGS: Heterogeneously dense breast t issues can obscure small masses. Procedure Note Sunny Sargent M.D. / ProviderRose M.D. - 10/09/2016 EXAM: MA Mammo Screening w/ CADD INDICATION: screening AGE: 42 years-old COMPARISON: None. Baseline. VIEWS: MLO and CC views of bilateral makayla asts. Right exaggerated CC FINDINGS: Heterogeneously dense breast t issues can obscure small masses. IMPRESSION: Recommendations: I recommend a follow-up mammogram in 1 year, self breast exams at least once pe r month and clinical breast exam at least once per year. Of note, be nign findings should not deter biopsy in the setting of a palpabl e abnormality. The false negative rate of mammography is approxim ately 10%. CODE: 1-NEGATIVE Appropriate letter sent. Full field digital mammography is used a nd Computer Aided Detection is performed on the digital mammogram im ages. Radha M Kerling R.T.(R), R.T.(R)(M) IMG BI PROCEDURES documented in this encounter Visit Diagnoses Not on filedocumented in this encounter
--- OUTSIDE RECORDS SUMMARY | 2022-02-09 07:08 | XMS_ITS | Encounter Summary ---
:1970 Author Organization [facility] Address [address] [place] [address] Care Team Providers Name Role Phone Unavailable Primary Care Provider Unavailable Encounter Details Date Type Department Care Team Description 04/04/2013 Hospital Encounter [facility] Janna [...] Notes Miscellaneous - Janna Foreman M.D. - 04/05/2013 7:10 AM CST Results Notification Document Contains Addenda Addendum by TORIE PETER on 02 May 2013 13:15:43 PLANT OPERATOR/SHIFT SUPERVISOR Note was sent on 04/12 to pt in portal. Addendum by TORIE PETER on 07 April 2013 10:21:09 PLANT OPERATOR/SHIFT SUPERVISOR Patient updated. Will hold this until we get the results. Addendum by ELYSE LEAVITT I on 07 April 2013 09:42:26 PLANT OPERATOR/SHIFT SUPERVISOR RETURN CALL [phone] Addendum by TORIE PETER on 07 April 2013 09:27:14 PLANT OPERATOR/SHIFT SUPERVISOR Left message to call back Addendum by IVANIA MAI on 07 April 2013 09:01:40 PLANT OPERATOR/SHIFT SUPERVISOR patient called back please calll her at [phone] Addendum by TORIE PETER on 06 April 2013 16:59:49 PLANT OPERATOR/SHIFT SUPERVISOR Left message to call back. From: JANNA FOREMAN MD To: Patricia Nurse; Sent: 04/05/2013 07:10:58 PLANT OPERATOR/SHIFT SUPERVISOR Show up: 04/05/2013 07:10:00 PLANT OPERATOR/SHIFT SUPERVISOR Subject: Results Notification Glucose is too high - could be diabetes. Please have her return for fasting Glucose and A1C soon. Cholesterol is too high - needs to watch diet. May need meds - if further testing confirms diabetes. Results: Date Result Name Ind Value Ref Range 04/04/2013 07:24 Glucose Fasting (H) 126 mg/dL (70 - 99) 04/04/2013 07:24 Cholesterol (H) 204 mg/dL ( - <=200) 04/04/2013 07:24 Trig 119 mg/dL ( - <=150) 04/04/2013 07:24 HDL (L) 39 mg/dL (40 - 60) 04/04/2013 07:24 LDL Calculated (H) 141 mg/dL (0 - 100) 04/04/2013 07:24 Chol/HDL Ratio (H) 5.23 (2.20 - 4.40) 04/04/2013 07:24 LDL/HDL 4 Source: [facility] POWERCHART Document Id: [id number] documented in this encounter Plan of Treatment Not on filedocumented as of this encounter Procedures Procedure Name Priority Date/Time Associated Diagnosis Comme nts LIPID PANEL, S Routine 04/04/2013 7:24 AM Results for this PLANT OPERATOR/SHIFT SUPERVISOR procedure are i n the results section. GLUCOSE, FASTING, Routine 04/04/2013 7:24 AM Resu lts for this S/P PLANT OPERATOR/SHIFT SUPERVISOR procedure are i n the results section. documented in this encounter Results (ABNORMAL) Lipid Panel (04/04/2013 7:24 AM PLANT OPERATOR/SHIFT SUPERVISOR) Patholo gist Method Time Signature Calculated LDL 141 (H) 0 - 100 POWERCHART MGDL Total 5.23 (H) 2.20 - POWERCHART Cholesterol/HDL 4.40 Ratio Cholesterol, 204 (H) <=200 POWERCHART Total MGDL HX HDL 39 (L) 40 - 60 POWERCHART MGDL Triglycerides 119 <=150 POWERCHART MGDL HXLDL/HDL 4 POWERCHART Specimen (Source) Anatomical Collection Method Collection Time Re ceived Time Location / / Volume Laterality Blood 04/04/2013 7:24 AM PLANT OPERATOR/SHIFT SUPERVISOR Janna Foreman M.D. LAB BLOOD ADD-ON Performing Organization Address City/State/ZIP Code Phon e Number POWERCHART (ABNORMAL) Glucose, Fasting (04/04/2013 7:24 AM PLANT OPERATOR/SHIFT SUPERVISOR) P athologist Signature Glucose, 126 (H) 70 - 99 POWERCHART Fasting, S MGDL Specimen (Source) Anatomical Collection Method Collection Time Re ceived Time Location / / Volume Laterality Blood 04/04/2013 7:24 AM PLANT OPERATOR/SHIFT SUPERVISOR Janna Foreman M.D. LAB BLOOD NON ADD-ON Performing Organization Address City/State/ZIP Code Phon e Number POWERCHART documented in this encounter Visit Diagnoses Not on filedocumented in this encounter
--- OUTSIDE RECORDS SUMMARY | 2022-02-09 07:08 | XMS_ITS | Encounter Summary ---
:1970 Author Organization [facility] Address [address] [place] [address] Care Team Providers Name Role Phone Unavailable Primary Care Provider Unavailable Encounter Details Date Type Department Care Team Description 02/12/2004 Hospital Encounter [facility] Ruslan [...]
--- OUTSIDE RECORDS SUMMARY | 2022-02-09 07:08 | XMS_ITS | Encounter Summary ---
:1970 Author Organization [facility] Address [address] [place] [address] Care Team Providers Name Role Phone Unavailable Primary Care Provider Unavailable Encounter Details Date Type Department Care Team Description 04/30/2005 Hospital Encounter [facility] Jorge Blum W, P.A. [address] [place], [place] [phone] (Wo rk) Social History Tobacco Use Types [...] or relatives? How often do you attend islam or 1 to 4 times per year 11/21 yazdanism services? Do you belong to any clubs or No 12/08/2018 organizations such as islam groups, unions, fraternal or athletic groups, or [...]
--- OUTSIDE RECORDS SUMMARY | 2022-02-09 07:08 | XMS_ITS | Encounter Summary ---
:1970 Author Organization [facility] Address [address] [place] [address] Care Team Providers Name Role Phone Unavailable Primary Care Provider Unavailable Encounter Details Date Type Department Care Team Description 09/07/2012 Hospital Encounter [facility] FAMILYPR[facility] Grandia, Kota Brooke, P.A.-C., P.A. [address] [place], [place] [address] (Wo rk) Social History Tobacco Use Types [...] 1 to 4 times per year 11/21 sikhism services? Do you belong to any clubs [...] Sign Reading Time Taken Comments Blood Pressure 110/78 09/07/2012 10:06 AM CDT Pulse 58 09/07/2012 10:06 AM CDT Temperature - - Respiratory Rate - - Oxygen Saturation - - Inhaled Oxygen Concentration - - Weight 87.2 kg (192 lb 3.9 oz) 09/07/2012 10:06 AM CDT Height - - Body Mass Index - - documented in this encounter Medications at Time of Discharge Medication Sig Dispensed Refills Start Date End Date levonorgestrel (MIRENA) by intrauterine route. 0 01/26/2007 20 mcg/24 hours (5 yrs) 52 mg IUD documented as of this encounter Progress Notes Mat Barker P.A.-C., P.A. - 09/07/2012 9:59 AM CDT [id number] CHIEF COMPLAINT/REASON FOR VISIT Right eyelid puffy and inflamed. HISTORY OF PRESENT ILLNESS Patient is a pleasant 41-year-old female who presents today with a 3-day history of her right eye lid being swollen, irritated and inflamed. She has not had any injury or trauma. The only thing that has changed is that she has recently started using tanning bed as she has an upcoming trip to [place]. She denies any visual changes or blurring. She denies allergic rhinitis symptoms. She has not taken anything for her symptoms. Primary care provider Rachel Gomez M.D. CURRENT MEDICATIONS None. ALLERGIES No known drug allergies. SYSTEMS REVIEW She has not had any recent cough, cold, illness. A comprehensive 10-point review of systems is otherwise performed and negative except as noted above. VITAL SIGNS Reviewed EMR dated 09/07/2012 and no changes. PHYSICAL EXAMINATION GENERAL: Pleasant well-appearing female in no acute distress. SKIN: Warm and dry without rashes. EYES: PERRLA. EOMs intact. Conjunctivae and sclerae clear are clear. The right upper lid does have slight amount of swelling but no erythema. No orbital pain or drainage. Funduscopic exam grossly normal. ENT: TMs are clear bilaterally. Nares patent, non-congested. Oral mucosa moist. Pharynx without erythema. LYMPH: No cervical or supraclavicular adenopathy. HEART: Regular rate and rhythm without murmur. LUNGS: Clear throughout. Normal respiratory rate and effort. IMPRESSION / REPORT / PLAN Conjunctivus probably allergic in nature. PLAN: Reassurance was provided. At this point I would recommend cold compresses and supportive measures and cares. Antihistamines as needed. Continue to monitor and to follow up if symptoms persist or further problems. She has not had any new contacts or exposures. No new makeup. I suspect that this may be related to a tanning bed and sensitivity. Otherwise to follow up on an as-needed basis. She is comfortable with plan. Mat Barker P.A.-C./vee Electronically Signed By: MAT BARKER On: 09/09/2012 01:04 PM Source: [email or web address] Document Id: [id number] documented in this encounter Miscellaneous Notes Miscellaneous - Rachel Hitchcock, MichelleNEvette - 09/07/2012 10:10 AM CDT Health Assessment Health Assessment Entered On: 09/07/2012 10:11 CDT Performed On: 09/07/2012 10:10 CDT by RACHEL HITCHCOCK Health Assessment Complete Health Assessment Complete or Modified : Annual Health Assessment Annual Health Assessment Completed : Yes RACHEL HITCHCOCK - 09/07/2012 10:10 CDT Nutrition Nutrition Risk Factors by History Adult : None RACHEL HITCHCOCK - 09/07/2012 10:10 CDT Functional Current Daily Living Assistance : None RACHEL HITCHCOCK - 09/07/2012 10:10 CDT Dependent Habits Tobacco Use/Currently Using : Yes Smoking Status : Current every day smoker RACHEL HITCHCOCK - 09/07/2012 10:10 CDT Tobacco Use Grid Cigarette Use Packs/Day : 0.5 RACHEL HITCHCOCK 09/07/2012 10:10 CDT Caffeine Use Grid Caffeine Use : Current Type : Coffee Frequency : Daily RACHEL HITCHCOCK 09/07/2012 10:10 CDT Psychosocial Domestic Abuse Concerns : None RACHEL HITCHCOCK 09/07/2012 10:10 CDT Advance Directive Advanced Directives : No RACHEL HITCHCOCK 09/07/2012 10:10 CDT Educ Needs Learning Style Preference Adult Grid Patient : Verbal explanation Family : None JAZZ HITCHOCCKGREGORY Plummer - 09/07/2012 10:10 CDT Source: [employer] Document Id: [id number] CDT!27 Miscellaneous - Rachel Hitchcock L.PBeni - 09/07/2012 10:06 AM CDT Adult Instructional Designer Intake/History Adult Instructional Designer Intake/History Entered On: 09/07/2012 10:10 CDT Performed On: 09/07/2012 10:06 CDT by RACHEL HITCHCOCK Intake Chief Complaint : Right eyelid swollen Onset of Symptoms : 3days Temperature Oral : 37.0 DegC(Converted to: 98.6 DegF) Peripheral Pulse Rate : 58 /min (LOW) Systolic Blood Pressure : 110 mmHg Diastolic Blood Pressure : 78 mmHg NIBP Mean : 89 mmHg BP Location : Right upper extremity Blood Pressure Cuff Size : Large Actual Weight : 87.2 kg(Converted to: 192 lb 4 oz) Weight Source : Standing scale Dosing Weight Clinic : 87.2 kg RACHEL HITCHCOCK - 09/07/2012 10:06 CDT General Info Information Given By : Patient Preferred Communication Mode : Verbal Languages : Emirati JAZZ HITCHCOCKGREGORY Plummer - 09/07/2012 10:06 CDT Subjective Pain Symptoms : No RACHEL HITCHCOCK 09/07/2012 10:06 CDT Dependent Habits Tobacco Use/Currently Using : Yes Smoking Status : Current every day smoker JAZZ HITCHCOCKGREGORY Plummer - 09/07/2012 10:06 CDT Tobacco Use Grid Cigarette Use Packs/Day : 0.5 RACHEL HITCHCOCK 09/07/2012 10:06 CDT Caffeine Use Grid Caffeine Use : Current Type : Coffee Frequency : Daily RACHEL HITCHCOCK - 09/07/2012 10:06 CDT Source: [employer] Document Id: [id number] CDT!31 documented in this encounter Plan of Treatment Not on filedocumented as of this encounter Visit Diagnoses Not on filedocumented in this encounter
--- OUTSIDE RECORDS SUMMARY | 2022-02-09 07:08 | XMS_ITS | Encounter Summary ---
:1970 Author Organization [facility] Address [address] [place] [address] Care Team Providers Name Role Phone Unavailable Primary Care Provider Unavailable Encounter Details Date Type Department Care Team Description 01/21/2004 Hospital Encounter [facility] Ruslan [...]
--- OUTSIDE RECORDS SUMMARY | 2022-02-09 07:08 | XMS_ITS | Encounter Summary ---
:1970 Author Organization [facility] Address [address] [place] [address] Care Team Providers Name Role Phone Unavailable Primary Care Provider Unavailable Encounter Details Date Type Department Care Team Description 11/14/2004 Hospital Encounter [facility] Ruslan [...]
--- OUTSIDE RECORDS SUMMARY | 2022-02-09 07:08 | XMS_ITS | Encounter Summary ---
:1970 Author Organization [facility] Address [address] [place] [address] Care Team Providers Name Role Phone Unavailable Primary Care Provider Unavailable Encounter Details Date Type Department Care Team Description 12/19/2003 [facility] Aniket Peacock M.D. [address] [place] [address] (Wo rk) Social History Tobacco [...] 1 to 4 times per year 11/21 church services? Do you belong to any clubs [...]
--- OUTSIDE RECORDS SUMMARY | 2022-02-09 07:08 | XMS_ITS | Encounter Summary ---
:1970 Author Organization [facility] Address [address] [place] [address] Care Team Providers Name Role Phone Unavailable Primary Care Provider Unavailable Encounter Details Date Type Department Care Team Description 11/13/2005 Hospital Encounter [facility] FAMILY[facility] Pedro Wright M.D. [address] [place] [address] (Wo rk) Social History Tobacco Use Types [...] or relatives? How often do you attend mandaen or 1 to 4 times per year 11/21 pentecostal services? Do you belong to any clubs or No 12/08/2018 organizations such as mandaen groups, unions, fraternal or athletic groups, or [...]
--- OUTSIDE RECORDS SUMMARY | 2022-02-09 07:08 | XMS_ITS | Encounter Summary ---
:1970 [facility] Address [address] [place] [address] Care Team Providers Name Role Phone Unavailable Primary Care Provider Unavailable Encounter Details Date Type Department Care Team Description 03/30/2013 Hospital Encounter [facility] Ruslan [...] 1 to 4 times per year 11/21 orthodoxy services? Do you belong to any clubs [...] Sign Reading Time Taken Comments Blood Pressure 114/84 03/30/2013 2:55 PM MATHEMATICS LECTURER Pulse 80 03/30/2013 2:55 PM MATHEMATICS LECTURER Temperature - - Respiratory Rate 16 03/30/2013 2:55 PM MATHEMATICS LECTURER Oxygen Saturation - - Inhaled Oxygen Concentration - - Weight 87.5 kg (192 lb 14.4 oz) 03/30/2013 2:55 PM MATHEMATICS LECTURER Height 166.5 cm (5' 5.55) 03/30/2013 2:55 PM MATHEMATICS LECTURER Body Mass Index 31.56 03/30/2013 2:55 PM MATHEMATICS LECTURER documented in this encounter Medications at Time of Discharge Medication Sig Dispensed Refills Start Date End Date levonorgestrel (MIRENA) by intrauterine route. 0 01/26/2007 20 mcg/24 hours (5 yrs) 52 mg IUD documented as of this encounter H&P Notes Janna Foreman M.D. - 03/30/2013 2:45 PM CST [id number] CHIEF COMPLAINT/REASON FOR VISIT Preventive healthcare exam and a few questions. HISTORY OF PRESENT ILLNESS Orqpp-rae-qrwq-old presents for a physical, which she has not had in about 6 years. Is overdue for aPap smear. Does have a mammogram scheduled today. She has used an IUD since a miscarriage some 6 years ago and was contemplating getting it removed and wondering what her other options are. She is still a smoker and hoping to quit, but that does preclude her, especially given her age, from using oral contraceptives, so she wants to consider something more permanent. As regards the smoking cessation, she tried Chantix and felt terrible flu-like symptoms. Zyban helped her quit smoking but caused headaches, so she wonders if there are other options or if she could try something less intense. She denies other acute complaints. MEDICATIONS Advil as needed. Multivitamin daily. ALLERGIES None known. SYSTEMS REVIEW GENERAL: Negative for recent fever, weight loss, extreme fatigue. EYES: Negative for double vision, sudden loss of vision. ENT: Negative for sore throat, runny nose, ear pain, hearing loss. HEART: Negative for chest pain, pain in legs relieved with rest, irregular heartbeats. RESPIRATORY: Negative forcough, wheezing, shortness of breath, excessive snoring. GASTROINTESTINAL: Negative for nausea, vomiting, heartburn, abdominal pain, bloating, constipation, diarrhea, blood in stools. GENITOURINARY: Negative for irregular menses, vaginal bleeding after menopause, frequent or painful urination, bloody urine. SKIN: Negative for rash, sore(s), excessive bruising, change of a mole. NEUROLOGICAL: Negativefor headache, persistent weakness or numbness on one side of the body, falling. MUSCULOSKELETAL: Negative for joint pain, muscle weakness, back pain. MENTAL HEALTH: Negative for depression, anxiety, suicidal thoughts. LYMPH: Negative for excessive thirst or urination, cold or heat intolerance, breast mass, swelling in legs, feet or hands. BLOOD: Negative for unusual bruising or bleeding, enlarged lymph nodes. PAST MEDICAL / SURGICAL HISTORY 1. Has had 6 pregnancies, 1 stillbirth vaginal delivery, 2 normal vaginal deliveries, and then 3 miscarriages. 2. She has had a few urinary tract infections. 3. Depression intermittently. 4. Contraceptive management. 5. Never has had surgery. 6. Never has had hospital stays. 7. No chronic health issues otherwise. SOCIAL HISTORY She is currently living with her boyfriend, her 2 daughters, and herself. She works at [employer] and is doing well. HABITS: Alcohol very rare. Tobacco about a pack a day. Caffeine 1 pop daily. FAMILY HISTORY Father has of complications of lung cancer. He also had had valvular heart disease. An uncle with brain cancer. A sister has a history of anxiety and depression. Mother had a benign meningioma and is still living. VITAL SIGNS TEMPERATURE: 37 degrees. PULSE: 80. RESPIRATIONS: 16. BP: 114/84. HEIGHT: 166.5 cm. WEIGHT: 87.5 kg. BMI: 31.56. PHYSICAL EXAMINATION SKIN: Appears clear. EYES: PERRLA. EOMI. Sclerae are clear. ENT: TMs are normal. Throat appears normal. Neck supple. No adenopathy or thyromegaly. Carotids are normal, without bruits. BREASTS: Benign without masses, discharge, or adenopathy. HEART: Regular rate and rhythm without murmur or ectopy. LUNGS: Clear. ABDOMEN: Soft and nontender. No hepatosplenomegaly or masses. PELVIS: Normal-appearing external genitalia, labia, introitus, urethral meatus, and clitoral quiroga. Vaginal mucosa looks normal. Cervix appears normal. Pap smear was done. Bimanual exam reveals a normalmidline, anteverted uterus, normal in size. Normal adnexa. No tenderness or masses. There is bloody mucous from the cervix. The string from her IUD is quite evident. I was able to do a Pap today. Bimanual exam was otherwise negative. RECTUM: Normal. Digital exam benign as well. No lesions. External anal exam benign without lesions or tags. SPINE: No costovertebral angle tenderness or spinal tenderness. EXTREMITIES: Normal symmetric reflexes and pulses. No edema. IMPRESSION/REPORT/PLAN 1. Preventive healthcare exam. We discussed preventive issues. She will get her first mammogram today and then at least every 1 to 2 years. Recommend screening lipids and glucose. She will come back fasting to get that. Recommend vaccinations. She got a Tdap today and agreed to get a flu shot today as suggested. Regular exercise and weight management encouraged. Pap smear should be every 3 years. Shehad 1 today and will repeat in 3 years. 2. Nicotine dependency. We discussed this at length today including various options. The fact that she is a smoker has implications in many ways, including her father's from lung cancer and her own risk related to contraceptives, etc. She is motivated. She is going to try Zyban at just 75 mg 1/2tablet daily initially and then go up to 1 daily if needed. May go up as high as twice daily or switch to 150 mg tab. If she is successful in quitting, she can stop the medication. She is going to follow up if any concerns. She really seems motivated to quit. Consider having her see a specialist. 3. Contraceptive management. Her options are limited. If she succeeds in quitting smoking, though, they would be better. She is going to read the brochure we gave her about Essure and schedule with [facility] GR[facility] to consider. She wants to wait to get her IUD out until that time as well. Follow up if further concerns in the interim. Janna Foreman M.D./krystle Electronically Signed By: JANNA FOREMAN MD On: 04/06/2013 09:42 AM Source: [facility] MHSDOLBEYNDOROTHYSYS Document Id: [id number] EMATICS LECTURER documented in this encounter Miscellaneous Notes Miscellaneous - Janna Foreman M.D. - 04/05/2013 7:21 AM CST Normal Results Letter 05 April 2013 DEBORA RUBY [id number] [place] [id number] Dear DEBORA RUBY, I am pleased to report that your results from the following diagnostic test(s) are normal. (Pap) Please follow up with us as we discussed during your visit or sooner if you have any concerns. If you have questions or concerns, please do not hesitate to call our office. Result Name Current Result COLLECTION CORRESPONDENT Cytology 03/30/2013 Sincerely, JANNA FOREMAN [address] [place] [id number] Electronic Signature Electronically Signed By: JANNA FOREMAN MD On: 05 April 2013 This document has images extracted. Source: [facility] Jybe Document Id: [id number] Electronically signed by Ac [facility] Supervisor [id number] at 10/21/2016 12:45 AM CDT Miscellaneous - Janna Foreman M.D. - 03/30/2013 3:32 PM CST Ambulatory Patient Summary [facility] [address] [place] [id number] Visit Information [facility]: [facility] Number: [id number] Current Date: 03/30/2013 15:32:35 Physicians Attending Provider: JANNA FOREMAN MD Primary Care Provider: PCP, DEBORA LO has been given the following list of follow-up instructions, medication list, and patient education materials: Follow-up Instructions Your Medications Here is a list of your medications. It is important to take your medications as directed. Use a pillbox or chart to help remind you to take your medications. Please let your doctor or nurse know if you have problems taking your medications. Medication/Strength Dose Route Frequency Indications/Special Instructions/Comments/Notes buPROPion (buPROPion 75 mg oral tablet immediate release) 37.5 mg Oral once a day multivitamin (multivitamin) Oral once a day ibuprofen (Advil 200 mg oral tablet) Oral as needed Attention: If you have any medications at home that are not on this list, DO NOT take them until youcontact your provider for clarification. Your Allergies & Intolerances Substance Reaction Symptoms Category Comments No Known Allergies Drug Your Problem List Problem Status Onset Comments Dyspnea On Exertion Active 10/25/2006 Nicotine Dependency Active 12/30/2006 Your Upcoming Appointments Date Time Location Reason Provider 03/30/2013 16:15 [facility] [place] Room 1 Attention: Contact your local Clinic if further appointment detail needed. Your Goals/Additional instructions: Source: [facility] POWERCHART Document Id: [id number] EMATICS LECTURER Miscellaneous - Janna Foreman M.D. - 03/30/2013 3:32 PM CST Ambulatory Depart Summary [facility] [address] [place] [address] Visit Information Name: [facility] Number: [id number] Visit Date: 03/30/2013 15:32:35 Attending Provider: JANNA FOREMAN MD Primary Care Provider: PCP, ELSEWHERE DEBORA RUBY has been given the following list of medications: Your Medications It is important to take your medications as directed. Use a pill box or chart to help remind you to take your medications. Please let your doctor or nurse know if you have problems taking your medications. Medication/Strength Dose Route Frequency Indications/Special Instructions/Comments/Notes buPROPion (buPROPion 75 mg oral tablet immediate release) 37.5 mg Oral once a day multivitamin (multivitamin) Oral once a day ibuprofen (Advil 200 mg oral tablet) Oral as needed Attention: If you have any medications at home that are not on this list, DO NOT take them until youcontact your provider for clarification. Additional Information: Source: [facility] Document Id: [id number] EMATICS LECTURER Miscellaneous - Conversion, Historical Provider Ser - 03/30/2013 2:55 PM MATHEMATICS LECTURER Adult Grid Caster Intake/History Adult Grid Caster Intake/History Entered On: 03/30/2013 14:57 MATHEMATICS LECTURER Performed On: 03/30/2013 14:55 MATHEMATICS LECTURER by SURJIT BILL Intake Chief Complaint : physical - quit smoking, IUD removal Temperature Oral : 37.0 DegC(Converted to: 98.6 DegF) Peripheral Pulse Rate : 80 /min Respiratory Rate : 16 /min Heart Rhythm : Regular Systolic Blood Pressure : 114 mmHg Diastolic Blood Pressure : 84 mmHg NIBP Mean : 94 mmHg BP Location : Right upper extremity Blood Pressure Cuff Size : Regular Height : 166.5 cm(Converted to: 5 ft 6 inch(es), 65.55 inch(es)) Actual Weight : 87.5 kg(Converted to: 192 lb 14 oz) Weight Source : Standing scale Dosing Weight Clinic : 87.5 kg Clinic BSA : 2.01 Body Mass Index : 31.56 kg/m2 FLY SURJIT - 03/30/2013 14:55 MATHEMATICS LECTURER General Info Information Given By : Patient Preferred Communication Mode : Verbal Languages : Citizen Of [place] SURJIT BILL - 03/30/2013 14:55 MATHEMATICS LECTURER Subjective Pain Symptoms : No SURJIT BILL - 03/30/2013 14:55 MATHEMATICS LECTURER Dependent Habits Tobacco Use/Currently Using : Yes Exposure to Tobacco Smoke : Patient smokes Smoking Status : Current every day smoker SURJIT BILL - 03/30/2013 14:55 MATHEMATICS LECTURER Tobacco Use Grid Cigarette Use Packs/Day : 0.5 SURJIT BILL - 03/30/2013 14:55 MATHEMATICS LECTURER Caffeine Use Grid Caffeine Use : Current Type : Coffee Frequency : Daily FLY SURJIT - 03/30/2013 14:55 MATHEMATICS LECTURER [facility] Document Id: [id number] MATHEMATICS LECTURER!36 documented in this encounter Plan of Treatment Not on filedocumented as of this encounter Procedures Procedure Name Priority Date/Time Associated Diagnosis Comme nts PATHOLOGY COLLECTION CORRESPONDENT Routine 03/30/2013 12:00 AM Results for this CYTOLOGY MATHEMATICS LECTURER procedure are i n the results section. documented in this encounter Results Pathology COLLECTION CORRESPONDENT Cytology (03/30/2013 12:00 AM MATHEMATICS LECTURER) Specimen (Source) Anatomical Location Collection Method / Collectio n Time Received Time / Laterality Volume 03/30/2013 Narrative [facility] - 04/04/2013 1:28 PM MATHEMATICS LECTURER in [address], [address] [place], [place] ??[id number] Patient Name: DEBORA RUBY Patient ID #: [id number] Collected: 03/30/2013 Address: [facility]/State/Zip: [address], [place] ??[id number] Received: Reported: 03/31/2013 04/04/2013 Soc. Sec. #: ?/Age/Sex 1970 (Age: 42) ??F Physician(s): [place] FOREMAN MD Copy To: ? [facility] ?? [id number] [facility], ??[place] ??[address] CYTOPATHOLOGY COLLECTION CORRESPONDENT REPORT FINAL CYTOLOGIC DIAGNOSIS Pap Smear, Vagina - ThinPrep: NEGATIVE FOR INTRAEPITHELIAL LESION OR MALIGNANCY MODERATE INFLAMMATION. ENDOCERVICAL CELLS/COMPONENT PRESENT. SATISFACTORY SPECIMEN FOR EVALUATION. Electronically Signed Out By eligiow/04/04/2013 ELIGIO RODRIGUEZ(ASCP) The Pap test is a screening procedure an d, as such, is subject to both false positive and false negative results as evidenced by published data. ??It is not a diagnostic test and results should be inter preted in the context of the patient's h istory and other clinical findings. ??Obtaining per iodic Pap tests may help to minimize the consequences of any false negatives that may occur. SPECIMEN(S) RECEIVED: Pap Smear, Vagina - ThinPrep CLINICAL HISTORY: Date of Last PAP: 2006 Other Clinical Conditions: HPV TYPING REQUESTED: IF ASCUS Janna Foreman M.D. LAB PAP COPATH ORDERABLES Performing Organization Address City/State/ZIP Code Phon e Number [facility] documented in this encounter Visit Diagnoses Not on filedocumented in this encounter
--- OUTSIDE RECORDS SUMMARY | 2022-02-09 07:08 | XMS_ITS | Encounter Summary ---
:1970 Author Organization [facility] Address [address] [place] [address] Care Team Providers Name Role Phone Unavailable Primary Care Provider Unavailable Encounter Details Date Type Department Care Team Description 09/19/2009 Hospital Encounter [facility] Luis Watkins P.A. [address] [place] [id number] (Wo rk) Social History Tobacco Use Types [...] or relatives? How often do you attend gnosticism or 1 to 4 times per year 11/21 cheondoism services? Do you belong to any clubs or No 12/08/2018 organizations such as gnosticism groups, unions, fraternal or athletic groups, or [...] documented as of this encounter Progress Notes Luis Watkins P.A. - 09/19/2009 12:00 AM CDT [id number] CHIEF COMPLAINT / REASON FOR VISIT Abdominal pain started earlier today. HISTORY OF PRESENT ILLNESS 38-year-old female complains of bilateral lower quadrant and suprapubic discomfort. It is radiating around to both sides. Denies fever, chills, nausea or vomiting. Reports a normal bowel movement about 2 hours ago which did not change her pain. Denies dysuria, urinary frequency or hematuria. She has an IUD, does not have menses, has no risk factors for STI. CURRENT MEDICATIONS Advil as needed. ALLERGIES None. VITAL SIGNS Vital signs stable, see nursing notes. PHYSICAL EXAM GENERAL: Well nourished, no acute distress. SKIN: Clear. LUNGS: Clear. HEART: Regular. ABDOMEN: Soft with mild suprapubic tenderness without guarding, rigidity or rebound tenderness. No organomegaly or mass. IMPRESSION / REPORT / PLAN DIAGNOSTICS: Urinalysis reveals just a trace of blood and a small amount of white cells but I think her presentation is certainly suggestive of a urinary tract infection. 1) Acute suprapubic abdominal pain. Plan: 1) Cipro 250 mg twice a day for 6 days. Advised aggressive hydration therapy, suggest she consider taking a laxative. Follow up if symptoms progress or persist. Manjula Sheriff-C bft Electronically Signed By:LUIS MARTIN On 09/25/2009 07:46 AM Source: [facility] MHSDOLBEYNONRADSYS Document Id: [id number] documented in this encounter Miscellaneous Notes Miscellaneous - Conversion, Historical Provider Ser - 09/19/2009 7:06 PM CDT Adult Sanitarian Intake/History Adult Sanitarian Intake/History Entered On: 09/19/2009 19:09 CDT Performed On: 09/19/2009 19:06 CDT by TC BLANC Intake Chief Complaint: Low abdominal pain Onset of Symptoms: This am LMP Date: N/A Temperature Oral: 36.8DegC(Converted to: 98.2DegF) Peripheral Pulse Rate: 68bpm Heart Rhythm: Regular Respiratory Rate: 14br/min Systolic Blood Pressure: 102mmHg Diastolic Blood Pressure: 70mmHg NIBP Mean: 81mmHg BP Location: Right upper extremity Actual Weight: 84.400kg(Converted to: 186.070lb) Dosing Weight Clinic: 84.40kg TC BLANC - 09/19/2009 19:06 CDT Subjective Pain Symptoms: Yes TC BLANC - 09/19/2009 19:06 CDT Pain Pain Assessment Grid Pain 1 Location: Abdomen Intensity: 6 TC BLANC - 09/19/2009 19:06 CDT Dependent Habits Tobacco Use/Currently Using: Yes TC BLANC - 09/19/2009 19:06 CDT Allergies Allergies (Active) NKA Estimated Onset Date: Unspecified ; Created By: TC BLANC; Reaction Status: Active ; Category: Drug ; Substance: NKA ; Type: Allergy ; Updated By: TC BLANC; Reviewed Date: 09/19/2009 19:05 CDT [facility] Document Id: [id number] CDT!24 documented in this encounter Plan of Treatment Not on filedocumented as of this encounter Procedures Procedure Name Priority Date/Time Associated Comments Diagnosis ZZPATHOLOGY NON-CONSULTANT EDUCATION Routine 12/30/2006 12:00 Resu lts for this CYTOLOGY AM CDT procedure are i n the results section. ZZPATHOLOGY NON-CONSULTANT EDUCATION Routine 11/13/2005 12:00 Resu lts for this CYTOLOGY AM CDT procedure are i n the results section. ZZPATHOLOGY NON-CONSULTANT EDUCATION Routine 09/18/2004 12:00 Resu lts for this CYTOLOGY AM CDT procedure are i n the results section. documented in this encounter Results ZZPATHOLOGY NON-CONSULTANT EDUCATION CYTOLOGY (12/30/2006 12:00 AM CDT) Specimen (Source) Anatomical Location Collection Method / Collectio n Time Received Time / Laterality Volume 12/30/2006 Narrative [facility] - 10/09/19 11 1:11 PM CDT PATIENT IMAGES Choose the Image button to view related documents. Historical Provider LAB PATHOLOGY/CYTOLOGY ORDER MASHA Performing Organization Address City/State/ZIP Code Phon e Number [facility] ZZPATHOLOGY NON-CONSULTANT EDUCATION CYTOLOGY (11/13/2005 12:00 AM CDT) Specimen (Source) Anatomical Location Collection Method / Collectio n Time Received Time / Laterality Volume 11/13/2005 Narrative [facility] - 10/09/19 11 1:11 PM CDT PATIENT IMAGES Choose the Image button to view related documents. Historical Provider LAB PATHOLOGY/CYTOLOGY ORDER MASHA Performing Organization Address City/State/ZIP Code Phon e Number [facility] ZZPATHOLOGY NON-CONSULTANT EDUCATION CYTOLOGY (09/18/2004 12:00 AM CDT) Specimen (Source) Anatomical Location Collection Method / Collectio n Time Received Time / Laterality Volume 09/18/2004 Narrative [facility] - 10/09/19 11 1:11 PM CDT PATIENT IMAGES Choose the Image button to view related documents. Historical Provider LAB PATHOLOGY/CYTOLOGY ORDER MASHA Performing Organization Address City/State/ZIP Code Phon e Number [facility] documented in this encounter Visit Diagnoses Not on filedocumented in this encounter
--- OUTSIDE RECORDS SUMMARY | 2022-02-09 07:08 | XMS_ITS | Encounter Summary ---
:1970 Author Organization [facility] Address [address] [place] [address] Care Team Providers Name Role Phone Unavailable Primary Care Provider Unavailable Encounter Details Date Type Department Care Team Description 12/25/2009 Hospital Encounter HX [facility] Ruslan [...] encounter Progress Notes Janna Foreman M.D. - 12/25/2009 12:00 AM CDT [id number] CHIEF COMPLAINT / REASON FOR VISIT Concerns about nicotine use and would like to quit again. HISTORY OF PRESENT ILLNESS She had quit in the past with some Zyban a number of years ago and has tried numerous things to quit again since then. She started smoking again after she several years ago. She smokes about a pack per day. Recently tried gum but just found it to keep her addicted to nicotine. She tried Chantix and it gave her flu-like symptoms along with some vivid dreams. She would like to try the Zyban again at this point. She denies other concerns. Is on no other medications. VITAL SIGNS Per EMR. PHYSICAL EXAM GENERAL: No further exam today. IMPRESSION / REPORT / PLAN 1) Nicotine dependency. I had a long talk with her today. We will place her on bupropion 100 mg SR twice a day for a month, initially one daily for about 4 days, and then switch to the 300 mg XL dose a month from now. I gave her a prescription for that as well. She will schedule back in 1 to 2 months for a complete physical examination and certainly will let us know sooner if any problems. Janna Foreman M.D. bft Electronically Signed By:JANNA FOREMAN MD On 12/27/2009 03:16 PM Source: [facility] MHSDOLBEYNONRADSYS Document Id: [id number] documented in this encounter Miscellaneous Notes Miscellaneous - Kathy Brown, L.P.N. - 12/25/2009 8:26 AM CDT Adult Supervisor Instrument Repair Intake/History Adult Supervisor Instrument Repair Intake/History Entered On: 12/25/2009 8:28 CDT Performed On: 12/25/2009 8:26 CDT by KATHY BROWN Intake Chief Complaint: DISCUSS QUITTING SMOKING Temperature Oral: 37.0DegC(Converted to: 98.6DegF) Peripheral Pulse Rate: 64bpm Respiratory Rate: 16br/min Systolic Blood Pressure: 128mmHg Diastolic Blood Pressure: 80mmHg NIBP Mean: 96mmHg BP Location: Right upper extremity Actual Weight: 84.200kg(Converted to: 185.629lb) Dosing Weight Clinic: 84.20kg KATHY BROWN - 12/25/2009 8:26 CDT Subjective Pain Symptoms: No KATHY BROWN - 12/25/2009 8:26 CDT Dependent Habits Tobacco Use/Currently Using: Yes KATHY BROWN - 12/25/2009 8:26 CDT Allergies Allergies (Active) NKA Estimated Onset Date: Unspecified ; Created By: TC BLANC; Reaction Status: Active ; Category: Drug ; Substance: NKA ; Type: Allergy ; Updated By: TC BLANC; Reviewed Date: 09/19/2009 19:05 CDT Source: [facility] Document Id: [id number] CDT!16 documented in this encounter Plan of Treatment Not on filedocumented as of this encounter Visit Diagnoses Not on filedocumented in this encounter
--- OUTSIDE RECORDS SUMMARY | 2022-02-09 07:08 | XMS_ITS | Encounter Summary ---
:1970 Author Organization [facility] Address [address] [place] [address] Care Team Providers Name Role Phone Unavailable Primary Care Provider Unavailable Encounter Details Date Type Department Care Team Description 11/18/2004 Hospital Encounter HX [facility] Provider, [...]
--- OUTSIDE RECORDS SUMMARY | 2022-02-09 07:08 | XMS_ITS | Encounter Summary ---
:1970 Author Organization [facility] Address [address] [place] [address] Care Team Providers Name Role Phone Unavailable Primary Care Provider Unavailable Encounter Details Date Type Department Care Team Description 10/13/2004 Hospital Encounter [facility] Ruslan [...]
--- OUTSIDE RECORDS SUMMARY | 2022-02-09 07:08 | XMS_ITS | Encounter Summary ---
:[address] [facility] Address [address] [place] [address] Care Team Providers Name Role Phone Unavailable Primary Care Provider Unavailable Encounter Details Date Type Department Care Team Description 03/30/2013 Hospital Encounter HX NO MAPPING Rachel Gomez M.D . Social History Tobacco Use Types Packs/Day Years [...] or relatives? How often do you attend jehovah's witness or 1 to 4 times per year 11/21 yazidism services? Do you belong to any clubs or No 12/08/2018 organizations such as jehovah's witness groups, unions, fraternal or athletic groups, or [...]
--- OUTSIDE RECORDS SUMMARY | 2022-02-09 07:08 | XMS_ITS | Encounter Summary ---
:1970 Author Organization [facility] Address [address] [place] [address] Care Team Providers Name Role Phone Unavailable Primary Care Provider Unavailable Encounter Details Date Type Department Care Team Description 10/25/2006 Hospital Encounter HX [facility] Emily Warren M.D. [address] [place] [address] (Wo rk) Social History Tobacco [...] 1 to 4 times per year 11/21 advent services? Do you belong to any clubs [...]
--- OUTSIDE RECORDS SUMMARY | 2022-02-09 07:09 | XMS_ITS | Encounter Summary ---
:1970 Author Organization [facility] Address [address] [place] [address] Care Team Providers Name Role Phone Unavailable Primary Care Provider Unavailable Encounter Details Date Type Department Care Team Description 03/23/2001 Hospital Encounter HX [facility] Ruslan [...] 1 to 4 times per year 11/21 gnosticist services? Do you belong to any clubs [...]
--- OUTSIDE RECORDS SUMMARY | 2022-02-09 07:09 | XMS_ITS | Encounter Summary ---
:1970 Author Organization [facility] Address [address] [place] [address] Care Team Providers Name Role Phone Unavailable Primary Care Provider Unavailable Encounter Details Date Type Department Care Team Description 04/23/2003 Hospital Encounter HX [facility] Ruslan [...]
--- OUTSIDE RECORDS SUMMARY | 2022-02-09 07:09 | XMS_ITS | Encounter Summary ---
:1970 Author Organization [facility] Address [address] [place] [address] Care Team Providers Name Role Phone Unavailable Primary Care Provider Unavailable Encounter Details Date Type Department Care Team Description 05/25/2003 Hospital Encounter HX [facility] URGENTCAR Provider, Kelvin avilez Social History Tobacco Use Types Packs/Day Years [...] 1 to 4 times per year 11/21 scientologist services? Do you belong to any clubs [...]
--- OUTSIDE RECORDS SUMMARY | 2022-02-09 07:09 | XMS_ITS | Encounter Summary ---
:1970 Author Organization [facility] Address [address] [place] [address] Care Team Providers Name Role Phone Unavailable Primary Care Provider Unavailable Encounter Details Date Type Department Care Team Description 05/28/2003 Hospital Encounter HX [facility] Ruslan Gomez M.D. Social History Tobacco [...] 1 to 4 times per year 11/21 worship services? Do you belong to any clubs [...]
--- OUTSIDE RECORDS SUMMARY | 2022-02-09 07:09 | XMS_ITS | Encounter Summary ---
:1970 Author Organization [facility] Address [address] [place] [address] Care Team Providers Name Role Phone Unavailable Primary Care Provider Unavailable Encounter Details Date Type Department Care Team Description 03/23/2003 Hospital Encounter HX [facility] Ruslan [...] or relatives? How often do you attend zoroastrianism or 1 to 4 times per year 11/21 taoism services? Do you belong to any clubs or No 12/08/2018 organizations such as zoroastrianism groups, unions, fraternal or athletic groups, or [...]
--- OUTSIDE RECORDS SUMMARY | 2022-02-09 07:09 | XMS_ITS | Encounter Summary ---
:1970 Author Organization [facility] Address [address] [place] [address] Care Team Providers Name Role Phone Unavailable Primary Care Provider Unavailable Encounter Details Date Type Department Care Team Description 03/09/2002 Hospital Encounter HX [facility] Ruslan [...]
--- OUTSIDE RECORDS SUMMARY | 2022-02-09 07:09 | XMS_ITS | Encounter Summary ---
:1970 Author Organization [facility] Address [address] [place] [address] Care Team Providers Name Role Phone Unavailable Primary Care Provider Unavailable Encounter Details Date Type Department Care Team Description 07/01/2000 Hospital Encounter HX [facility] Ruslan [...] 1 to 4 times per year 11/21 adventism services? Do you belong to any clubs or No 12/08/2018 organizations such as sikh groups, unions, fraternal or athletic groups, or [...]
--- OUTSIDE RECORDS SUMMARY | 2022-02-09 07:10 | XMS_ITS ---
:1970 Author Care Team Providers Name Role Phone Patricio Corrales Primary Care Provider Unavailable Allergies Code Code System Name Reaction Severity Status Onset NKDA ? Medications Name Status Start Date Stop Date ? ? nitrofurantoin monohydrate/macrocrystals 100 mg capsule Active ? Not available Problems None recorded. Procedures None recorded. Results Lab Results Date Name Specimen Result Interpretation Description Value Range Status Address ? 10/31/2020 Urinalysis, Urine ? Leukocytes NEG ? ? [facility] [place]: [address] , [place] ? ? Urine ? Nitrite negative ? ? [facility] [place]: [address] , [place] ? ? Urine ? Urobilinogen 0.2 ? ? [facility] [place]: [address] , [place] ? ? Urine ? Protein 15 ? ? [facility] [place]: [address] , [place] ? ? Urine ? Ph 6.0 ? ? [facility] [place]: [address] , [place] ? ? Urine ? Blood +++ ? ? [facility] [place]: [address] , [place] ? ? Urine ? Specific 1.010 ? ? [facility] [place]: [address] , [place] ? ? Urine ? Ketone NEG ? ? [facility] [place]: [address] , [place] ? ? Urine ? Bilirubin NEG ? ? [facility] [place]: [address] , [place] ? ? Urine ? Glucose NEG ? ? [facility] [place]: [address] , [place] ? ? Urine ? Appearance CLOUDY ? ? [facility] [place]: [address] , [place] ? ? Urine ? Color CLEAR ? ? [facility] [place]: [address] , [place] Past Encounters 10/31/2020 Acute Urinary Tract Infection Patricio Corrales, [facility]: [address], [place] [address], Ph. Social History None recorded. Vaccine List None recorded. Plan of Care Patient Instructions Patient presents with symptoms consiste nt with simple acute cystitis. Urinalysis reveals blood and with clinical presenta tion and history is indicative of probable infection. She is not . There maynard s been no fever, chills, vomiting or significant abdominal pain. No convincin g evidence of pyelonephritis or ureterolithiasis today. There is no clin ical evidence of appendicitis or diverticulitis. I will start patient on antibiotics for the infection. I recommended patient present to the ED immediately fo r increasing pain, vomiting, fever, inability to tolerate oral medications, or for any other concerns. I recommended follow up with primary physician in 2-3 days if symptom s have not completely resolved, and that she finish the entire course of antibiotics even if symptom free. Patient understands and agrees with treatment plan and instructi ons. Symptom management discussed. Medication side effects discussed. Discussed risks? benefits? alternatives? side effects of treatment. If symptoms progress or worse n, patient should proceed to the emergency room immediately. Reminders Provider Appointments None recorded. ? ? Lab None recorded. ? ? Referral None recorded. ? ? Procedures None recorded. ? ? Surgeries None recorded. ? ? Imaging None recorded. ? ? Vitals Blood Pressure 126/72 mm[Hg]
--- OUTSIDE RECORDS SUMMARY | 2022-02-09 07:10 | XMS_ITS | Clinical Summary ---
:1970 Author Organization [facility] [place] [address] Care Team Providers Name Role Phone Rachel Gomez MD Primary Care Provider [phone] Allergies No known active allergies Medications Not on file Active Problems Problem Noted Date Non-small cell lung cancer Social History Tobacco Use Types Packs/Day Years Used Date Never Assessed Sex Assigned at Date Recorded Not on file Plan of Treatment Health Maintenance Due Date Last Done Comments COVID-19 vaccine series (#1) 04/01/1972 Tdap 09/29/1982 Depression screening for age 12+ 1983 BMI (ht and wt on same day) for age 18+ 09/29/1989 Hepatitis C screening for age 18-79 09/29/1989 Tetanus booster 1991 Pap test for age 21-65 09/29/1992 Colonoscopy through age 75 09/29/2016 Lipids for age 45-75 09/29/2016 Mammogram for age 45-75 09/29/2016 Zoster (shingles) series for age 50+ (1 of 2) 09/29/2021 Influenza for age 50-64 01/22/2022 Results Not on filefrom Last 3 Months Insurance Payer Benefit Plan / Subscriber ID Effective Dates Phone Addre ss Type Group BLUE CROSS BLUE CROSS OF [id number] 2018-Present [address] [address] [place] [address] Care Teams Music Cataloguer Relationship Specialty Start Date End Date Rachel Gomez MD PCP - General Family Practice 09/05/14
--- NOTE | 2022-02-09 07:15 | CRLHL7_ITS ---
For Patients: As a result of the Century Cures Act, medical imaging exams and procedure reports are released immediately into your electronic medical record. You may view this report before your referring provider. If you have questions, please contact your health care provider. Indication: Metastatic lung cancer Technique: Multiplanar, multisequence MRI of the brain obtained without and with contrast. A total of 15 mL of gadolinium-based IV contrast was administered. Comparison: PET scan 01/08/2022, prior MRI brain studies, the most recent dated 08/19/2021 Findings: Increased size of enhancing focus involving the right middle frontal gyrus (series 9/30, series 8/13), now 3.5 mm, previously 2.5 mm. Enhancing focus involving the right inferior frontal gyrus (series 9/20, series 8/14), appears slightly larger on the coronal sequence, possibly artifactual due to slice selection. No new enhancing lesions identified. Scattered chronic microangiopathy changes. No acute ischemia or intracranial hemorrhage. No abnormal extra-axial fluid collection. Ventricles and cortical sulci appear stable in size configuration. No midline shift or mass effect. No hydrocephalus or herniation. Midline structures are unremarkable. Major intracranial vasculature is unremarkable. Paranasal sinuses and mastoid air cells have a normal cecum. Unremarkable orbits. Impression: 1. Relative to 08/19/2021, slightly increased size of the enhancing lesion within the right middle frontal gyrus. The smaller right inferior frontal gyrus lesion appears larger on the coronal sequence, possibly artifactual from slice selection. 2. No new metastatic lesions identified. No acute intracranial abnormality. Dictated by Elle Rodriguez MD @ 02/09/2022 9:22:52 AM (Electronically Signed)
== END 2022-02-09 07:04 | disposition home or self-care (01) ==
LOC: MRI 07:03
PROVIDERS: Visit Provider Clinical Nurse Specialist
DX: C34.31 Malignant neoplasm of lower lobe, right bronchus or lung (principal); C79.51 Secondary malignant neoplasm of bone
CPT/HCPCS: 70553; A9575

== ENCOUNTER 2022-04-20 07:04 | Outpatient (CLI) | payer BC, SELFPAY ==
--- OUTSIDE RECORDS SUMMARY | 2022-04-20 07:07 | XMS_ITS | Encounter Summary ---
:1970 Author Organization [facility] Address [address] [place] [address] Care Team Providers Name Role Phone Jessica Schulz APRN C.N.P., D.N.P. Primary Care Provider Encounter Details Date Type Department Care Team Description 04/07/2022 Orders Only [facility]F [facility] Jessica Schulz, Screening Cancer Colon [address] KIERAN CHRISTIE, [place]., [place] [address] D.N.P. [phone] [address] [place] [address] Social History Tobacco Use Types [...] one Less than mo nthly 12/23/2018 occasion? Social Isolation Answer Date Recorded In a typical week, how many times do you More than three gracia es a week 12/08/2018 talk on the phone with family, friends, or neighbors? How often do you get together with friends Once a week 12/08/2018 or relatives? How often do you attend jainism or 1 to 4 times per year 11/21 orthodoxy services? Do you belong to any clubs or No 12/08/2018 organizations such as jainism groups, unions, fraternal or athletic groups, or [...] of this encounter Visit Diagnoses Diagnosis Screening Cancer Colon documented in this encounter Additional Health Concerns Assessment Noted Time PHQ-9 Depression Total Score: 13 01/17/2019 8:17 AM CD T documented as of this encounter Care Teams Market News Reporter Relationship Specialty Start Date End Date Jessica Schulz APRN, C.N.P., D.N.P. PCP - General 12/12/[address] [place] [address] documented as of this encounter
--- OUTSIDE RECORDS SUMMARY | 2022-04-20 07:07 | XMS_ITS | Clinical Summary ---
:1970 Author Organization [facility] Address [address] [place] [address] Care Team Providers Name Role Phone Jessica Schulz APRN, C.N.P., D.N.P. Primary Care Provider Source Comments Patient records contain information from all sites at [facility]. For routine questions regarding patient records, call [phone] during business hours, M-F 8:00 AM - 5:00 PM Central Time. Record requests for emergency care only can be directed to [phone] at any time.[facility] Allergies No known active allergies Medications [...] Signed by Chance Lamas M.D. on 02/01/2019 Encounters Date Type Specialty Care Team Description 04/07/2022 Orders Only Laboratory Medicine Schulz, K, Sc reening Cancer Colon [facility], C.N.P., D.N.P. 03/24/2022 Orders Only Laboratory Medicine Jessica Schulz Sc reening Cancer Colon [facility], C.N.P., D.N.P. 02/24/2022 Orders Only Jessica Schulz, Screening Mammogram [facility], C.N.P., Breast Cancer D.N.P. 02/09/2022 Orders Only Jessica Schulz, [facility], C.N.P., D.N.P. from Last 3 Months Immunizations Name Administration Dates Next Due Influenza, [...] or relatives? How often do you attend mosque or 1 to 4 times per year 11/21 alevism services? Do you belong to any clubs or No 12/08/2018 organizations such as mosque groups, unions, fraternal or athletic groups, or [...] Comments Blood Pressure 120/80 03/30/2019 9:47 AM POWER HAIR CLIPPER Pulse 78 03/30/2019 9:47 AM POWER HAIR CLIPPER Temperature 36.3 ??C (97.3 ??F) 03/30/2019 9:47 AM POWER HAIR CLIPPER Respiratory Rate 18 12/04/2018 8:14 AM CDT Oxygen Saturation - - Inhaled Oxygen Concentration - - Weight 109 kg (239 lb 6.7 oz) 03/30/2019 9:47 AM POWER HAIR CLIPPER Height 166.4 cm (5' 5.5) 03/28/2019 9:54 AM POWER HAIR CLIPPER Body Mass Index 39.24 03/28/2019 9:54 AM POWER HAIR CLIPPER Plan of Treatment Health Maintenance Due Date [...] PHQ-2) COVID-19 Vaccine (5 - Booster for 10/07/2021 08/12/2021, , Moderna series) 08/28/2020, Additional history exists Influenza Vaccine (#1) 2022 03/30/2013 DTaP,Tdap,and Td Vaccines (2 - Td 03/30/2023 03/30/2013 or Tdap) Medical Devices Implanted Type Area Slotter Operator Device Shelf Model / Identifier Expiration Serial / Date Lot Conversions - Default Historical Implant Device Intrauterine Other/Leg acy Implanted: 05/24/2009 (Quantity not on file) Device - See Implant Description Description: Device Status Text - IUD.Mi darnell Procedures Procedure Name Priority Date/Time Associated Diagnosis Comme nts OUTSIDE MR NEURO Routine 02/09/2022 7:35 AM Resul ts for this CDT procedure are i n the results section. from Last 3 Months Results MR head/brain wo/w con-Outside MR Neuro (02/09/2022 7:35 AM CDT) Specimen (Source) Anatomical Location Collection Method / Collectio n Time Received Time / Laterality Volume Narrative IIMS - 02/10/2022 9:44 AM CDT This order has been created and auto-finalized to support the import of outside images. If available, original i nterpretation can be found on the Media Tab in Chart Review, in Document V iewer, or as an image in QREADS. If a re-interpretation or overread is re quired please follow defined workflow. ?? Provider Not In System IMG MRI PROCEDURES Performing Organization Address City/State/ZIP Code Phon e Number IIDC IIDC NA from Last 3 Months Insurance Payer Benefit Plan / Subscriber ID Effective Dates Phone Addre ss Type Group BLUE CROSS ANTHEM BLUE [id number] 2021-Presen [phone] [address] [id number] PPO BLUE [facility] ACCESS t [address] [place] [address] Care Teams First Coat Sander Relationship Specialty Start Date End Date Jessica Schulz APRN, C.N.P., D.N.P. PCP - General 12/12/20 [address] [address]
--- OUTSIDE RECORDS SUMMARY | 2022-04-20 07:07 | XMS_ITS | Encounter Summary ---
:1970 Author Organization [facility] Address [address] [place] [address] Care Team Providers Name Role Phone Jessica Schulz APRN C.N.P., D.N.P. Primary Care Provider Reason for Referral Outpatient (Routine) - Authorized Specialty Diagnoses / Procedures Referred By Contact Refer red To Contact Family Medicine Jessica Schulz APRN, [facility] C.N.P., D.N.P. [address] [place] [phone] Referral ID Status Reason Start Date Expiration Date Visits V isits Requested Authorized [id number] Authorized 02/24/2022 02/23/2025 1 1 utpatient (Routine) - Authorized Specialty Diagnoses / Procedures Referred By Contact Refer red To Contact Diagnoses Screening Mammogram Breast Cancer Jessica Schulz APRN, [facility] Region Procedures BI Breast Screening Bilateral with Tomosynthesis C.N.P., D.N.P. [address] [place] [phone] Referral ID Status Reason Start Date Expiration Date Visits V isits Requested Authorized [id number] Authorized 02/24/2022 02/24/2023 1 1 Encounter Details Date Type Department Care Team Description 02/24/2022 Orders Only [facility] PCP [facility] MNT Jessica Schulz, Screening Mammogram Cordelia CHRISTIE.N.P., Breast Cancer D.N.P. [address] [address] Social History Tobacco Use Types Packs/Day [...] Treatment Scheduled Orders Name Type Priority Associated Order Schedule Diagnoses BI Breast Screening Imaging RAD - Routine (most Screening Mamm ogram Expected: Bilateral with inpatients and all Breast Cancer 2021, Tomosynthesis outpatients) Expires: 08/23/2022 Scheduled Referrals Name Type Priority Associated Diagnoses Order S [facility] Medicine Outpatient Referral Routine Expec paula: office visit 03/10/2022, (clinic) Expires: 08/23/2022 documented as of this encounter Visit Diagnoses Diagnosis Screening Mammogram Breast Cancer documented in this encounter Additional Health Concerns Assessment Noted Time PHQ-9 Depression Total Score: 13 01/17/2019 8:17 AM CD T documented as of this encounter Care Teams Java Development Manager Relationship Specialty Start Date End Date Jessica Schulz APRN, C.N.P., D.N.P. PCP - General 12/12/[address] [address] documented as of this encounter
--- OUTSIDE RECORDS SUMMARY | 2022-04-20 07:07 | XMS_ITS | Encounter Summary ---
:1970 Author Organization [facility] Address [address] [place] [address] Care Team Providers Name Role Phone Jessica Schulz APRN C.N.P., D.N.P. Primary Care Provider Encounter Details Date Type Department Care Team Description 03/24/2022 Orders Only [facility] SELF TEST [facility] Jessica Schulz, Screening Cancer Colon [address] KIERAN CHRISTIE, [place].N[place]., [place] [address] D.N.P. [phone] [address] [place] [address] Social History Tobacco Use Types [...] 1 to 4 times per year 11/21 latter day services? Do you belong to any clubs [...] Type Priority Associated Diagnoses Order S chedule Cologuard-Sent Out Lab Lab Routine Screening Cancer C olon Expected: 04/07/2022 (Approximate), Expires: 06/24/2023 documented as of this encounter Visit Diagnoses Diagnosis Screening Cancer Colon documented in this encounter Additional Health Concerns Assessment Noted Time PHQ-9 Depression Total Score: 13 01/17/2019 8:17 AM CD T documented as of this encounter Care Teams Corporate Accounting Manager Relationship Specialty Start Date End Date Jessica Schulz APRN, C.N.P., D.N.P. PCP - General 12/12/[address] [address] documented as of this encounter
--- OUTSIDE RECORDS SUMMARY | 2022-04-20 07:07 | XMS_ITS ---
:1970 Author Organization [facility] Address [address] [place] [address] Care Team Providers Name Role Phone Jessica [...] Elapsed Days Session Dose Total Dos e [id number] 02/08/2019 6 400 cGy 2,000 cGy
--- OUTSIDE RECORDS SUMMARY | 2022-04-20 07:08 | XMS_ITS | Encounter Summary ---
:1970 Author Organization [facility] Address [address] [place] [address] Care Team Providers Name Role Phone Jerardo Streeter M.D. Primary Care Provider Reason for Visit Reason Onset Date Comments Outpatient COVID-19 Testing 11/13/2019 Encounter Details Date Type Department Care Team Description 11/13/2019 External Outreach Department of Hansel Linton Infect ion [facility] in J, D.O. Respiratory (Primary [place], [place] [address] Dx) [address] [facility] [place] [phone] Social History Tobacco Use Types Packs/Day Years [...] documented as of this encounter Care Teams Spring Fitter Relationship Specialty Start Date End Date Jerardo Streeter M.D. PCP - General 05/04/19 08/20/20 [address] [place] [address] documented as of this encounter
--- OUTSIDE RECORDS SUMMARY | 2022-04-20 07:08 | XMS_ITS | Encounter Summary ---
:1970 Author Organization [facility] Address [address] [place] [address] Care Team Providers Name Role Phone Jessica Schulz APRN, C.N.PEvette, D.N.P. Primary Care Provider Reason for Referral Specialty Diagnoses / Procedures Referred By Contact Refer red To Contact Jessica Schulz APRN, C.N.PEvette, [facility] D.N.P. [address] [place] [phone] Referral ID Status Reason Start Date Expiration Date Visits Requ ested Visits Authorized ITE MIXER Encounter Details Date Type Department Care Team Description 06/29/2021 Orders Only [facility] Schulz APRN, C.N.P., D.N.P. [address] [place] [phone] (Wo rk) Social History Tobacco [...] or relatives? How often do you attend caodaism or 1 to 4 times per year 11/21 scientologist services? Do you belong to any clubs or No 12/08/2018 organizations such as caodaism groups, unions, fraternal or athletic groups, or [...] documented as of this encounter Care Teams Ibm Bpm Architect Relationship Specialty Start Date End Date Jessica Schulz APRN, C.N.P., D.N.P. PCP - General 12/12/[address] [address] documented as of this encounter
--- OUTSIDE RECORDS SUMMARY | 2022-04-20 07:08 | XMS_ITS | Encounter Summary ---
:1970 Author Organization [facility] Address [address] [place] [address] Care Team Providers Name Role Phone Rachel [...] 1 to 4 times per year 11/21 taoist services? Do you belong to any clubs [...] documented as of this encounter Care Teams Hematology Technician Relationship Specialty Start Date End Date Rachel Gomez M.D. PCP - General Family Medicine 12/04/18 1 07/04/18 documented as of this encounter
--- OUTSIDE RECORDS SUMMARY | 2022-04-20 07:08 | XMS_ITS | Encounter Summary ---
:1970 Author Organization [facility] Address [address] [place] [address] Care Team Providers Name Role Phone Rachel Gomez M.D. Primary Care Provider Unavailable Encounter Details Date Type Department Care Team Description 02/06/2019 Hospital Encounter Department of Radiation Gracia Lamas, Oncology in [place] [address] [phone] (Wo rk) [address] [phone] Social History Tobacco Use Types Packs/Day Years [...] 1 to 4 times per year 11/21 spiritism services? Do you belong to any clubs [...] documented as of this encounter Care Teams Training Systems Officer Relationship Specialty Start Date End Date Rachel Gomez M.D. PCP - General Family Medicine 12/04/18 1 07/04/18 documented as of this encounter
--- OUTSIDE RECORDS SUMMARY | 2022-04-20 07:08 | XMS_ITS | Encounter Summary ---
:1970 Author Organization [facility] Address [address] [place] [address] Care Team Providers Name Role Phone Jerardo Streeter M.D. Primary Care Provider Reason for Visit Reason Onset Date Comments Outpatient COVID-19 Testing Outpatient COVID-19 Testing 12/25/2019 Encounter Details Date Type Department Care Team Description 12/25/2019 External Outreach Department of Hansel Linton Infect ion Upper Internal Medicine in J, D.O. Respiratory (Primary [place], [place] [address] Dx) [address] [facility] [place] [phone] Social History Tobacco Use Types Packs/Day Years [...] 1 to 4 times per year 11/21 christianity services? Do you belong to any clubs [...] RNA, V Asymptomatic (12/26/2019 4:20 PM CDT) [facility] gist Method Time Signature SARS-CoV-2 Swab, 12/28/2019 [...] is performed using the Aptima SARS-CoV-2 assay ([employer] which has received Emergency Use Authori zation (EUA) by the U.S. Food and Drug Administration. Fact sheets for this Emergency Use Autho rization (EUA) assay can be found at the following links: For Healthcare Providers: https://www.fd a.gov/media/173993/download For Patients: https://www.fda.gov/media/ 062063/download Specimen Anatomical Collection Method Collection Time Receive d Time (Source) Location / / Volume Laterality Varies 12/26/2019 4:20 PM 0 (Nasopharynx) CDT 11:28 PM CDT Hansel Linton D.O. LAB MICROBIOLOGY - GENERAL O RDERABLES Performing Organization Address City/State/[facility] Phon e Number [facility]- [address] [place] [address] [place] [address] [address] documented in this encounter Visit Diagnoses Diagnosis Infection Upper Respiratory - Primary documented in this encounter Additional Health Concerns Infection Onset Date Last Indicated Resolved Time COVID19 Pending 12/25/2019 12/26/2019 12/28/2019 12:52 AM CDT Assessment Noted Time PHQ-9 Depression Total Score: 13 01/17/2019 8:17 AM CD T documented as of this encounter Care Teams Security Incident Handler Relationship Specialty Start Date End Date Jerardo Streeter M.D. PCP - General 05/04/19 08/20/20 [address] [place] [address] documented as of this encounter
--- OUTSIDE RECORDS SUMMARY | 2022-04-20 07:08 | XMS_ITS | Encounter Summary ---
:1970 Author Organization [facility] Address [address] [place] [address] Care Team Providers Name Role Phone Rachel Gomez M.D. Primary Care Provider Unavailable Reason for Referral Specialty Diagnoses / Procedures Referred By Contact Refer red To Contact Chance Lamas M .D. [facility] Region [address] [place] [address] Referral ID Status Reason Start Date Expiration Date Visits Requ ested Visits Authorized Encounter Details Date Type Department Care Team Description 02/06/2019 Hospital Encounter Department of Daniel Lamas M.D. [address] [place] [address] Secondary Malignant Radiation Oncology Alida Ibrahim R.N. [address] [place] [address] Neoplasm Bone (HCC) in [place], [place] [address] [place] [phone] Social History Tobacco Use Types Packs/Day Years [...] or relatives? How often do you attend hindu or 1 to 4 times per year 11/21 roman catholic services? Do you belong to any clubs or No 12/08/2018 organizations such as hindu groups, [employer], fraHubNami or athletic groups, or school groups? 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 PCP - General Family Medicine 12/04/18 1 07/04/18 documented as of this encounter
--- OUTSIDE RECORDS SUMMARY | 2022-04-20 07:08 | XMS_ITS | Encounter Summary ---
:1970 Author Organization [facility] Address [address] [place] [address] Care Team Providers Name Role Phone Jessica Schulz APRN, C.N.P., D.N.P. Primary Care Provider Reason for Referral Specialty Diagnoses / Procedures Referred By Contact Refer red To Contact Yasmine Gale M.D. [facility] Region [address] [place] [phone] Referral ID Status Reason Start Date Expiration Date Visits Requ ested Visits Authorized Encounter Details Date Type Department Care Team Description 01/07/2021 Orders Only [facility] Sa christian Gale M.D. [address] [place] [phone] (Wo rk) Social History Tobacco [...] documented as of this encounter Care Teams Hunter Relationship Specialty Start Date End Date Jessica Schulz APRN, C.N.P., D.N.P. PCP - General 12/12/20 [address] [address] documented as of this encounter
--- OUTSIDE RECORDS SUMMARY | 2022-04-20 07:08 | XMS_ITS | Encounter Summary ---
:1970 Author Organization [facility] Address [address] [place] [address] Care Team Providers Name Role Phone Valente Hester M.D. Primary Care Provider Encounter Details Date Type Department Care Team Description 10/25/2020 E-Visit [facility] Express Judi Benitez, RE: Express Care Online Care at the [facility], C.N.P., for Bladde r Infection Building on the [address]th D.N.P. (female only, age 12-75 Floor [address] [place] [address] years) [address] [place] [address] [phone] Social History Tobacco Use Types Packs/Day Years [...] or relatives? How often do you attend buddhist or 1 to 4 times per year 11/21 scientologist services? Do you belong to any clubs or No 12/08/2018 organizations such as buddhist groups, unions, fraternal or athletic groups, or [...] documented as of this encounter Care Teams Media Services Director Relationship Specialty Start Date End Date Valente Hester M.D. PCP - General 08/21/20 12/11/20 [address] [place] [phone] documented as of this encounter
--- OUTSIDE RECORDS SUMMARY | 2022-04-20 07:08 | XMS_ITS | Encounter Summary ---
:1970 Author Organization [facility] Address [address] [place] [address] Care Team Providers Name Role Phone Rachel Gomez M.D. Primary Care Provider Unavailable Reason for Visit Reason Comments Med Refill Encounter Details Date Type Department Care Team Description 03/03/2019 Refill Department of Family Medicine, Jairo Gomez M.D. Med Refill [facility], in [place], [place] [address] [place] [address] [facility] [phone] Social History Tobacco Use Types Packs/Day Years [...] or relatives? How often do you attend christianity or 1 to 4 times per year 11/21 denominational services? Do you belong to any clubs or No 12/08/2018 organizations such as christianity groups, unions, fraternal or athletic groups, or [...] or the highest technical, or vocational p [facility] degree you have received? Sex Assigned at [...] documented as of this encounter Care Teams Bindery Technician Relationship Specialty Start Date End Date Rachel Gomez M.D. PCP - General Family Medicine 12/04/18 1 07/04/18 documented as of this encounter
--- OUTSIDE RECORDS SUMMARY | 2022-04-20 07:08 | XMS_ITS | Encounter Summary ---
:1970 Author Organization [facility] Address [address] [place] [address] Care Team Providers Name Role Phone Jessica Schulz APRN, C.N.PEvette, D.N.P. Primary Care Provider Reason for Referral Specialty Diagnoses / Procedures Referred By Contact Refer red To Contact Jessica Schulz APRN, C.N.PEvette, [facility] D.N.P. [address] [place] [address] Referral ID Status Reason Start Date Expiration Date Visits Requ ested Visits Authorized Encounter Details Date Type Department Care Team Description 02/09/2022 Orders Only [facility] Jessica Schulz APRN, C.N.P., D.N.P. [address] [place] [phone] (Wo rk) Social History Tobacco [...] or relatives? How often do you attend mu-ism or 1 to 4 times per year 11/21 rastafari services? Do you belong to any clubs or No 12/08/2018 organizations such as mu-ism groups, unions, fraFrench Girls or athletic groups, or school groups? How [...] Outpatient Referral Routine Ex pected: office visit 02/09/2022 Immuno/Booster (Approximate) , Expires: 02/09/2023 documented as of this encounter Visit Diagnoses Not on filedocumented in this encounter Additional Health Concerns Assessment Noted Time PHQ-9 Depression Total Score: 13 01/17/2019 8:17 AM CD T documented as of this encounter Care Teams Professor Of Anthropology Relationship Specialty Start Date End Date Jessica Schulz APRN, C.N.P., D.N.P. PCP - General 12/12/[address] [phone] documented as of this encounter
--- OUTSIDE RECORDS SUMMARY | 2022-04-20 07:08 | XMS_ITS | Encounter Summary ---
:1970 Author Organization [facility] Address [address] [place] [address] Care Team Providers Name Role Phone Jerardo Streeter M.D. Primary Care Provider Reason for Visit Reason Onset Date Comments Outpatient COVID-19 Testing 11/21/2019 Encounter Details Date Type Department Care Team Description 11/21/2019 External Outreach Department of Hansel Linton Infect ion [facility] Internal Medicine in J, D.O. Respiratory (Primary [place], [place] [address] Dx) [address] [place] [phone] Social History Tobacco Use Types Packs/Day Years [...] 2 RNA Detection (11/21/2019 4:15 PM CDT) [facility] Method Time Signature SARS-CoV-2 Nasopharynx 11/22/2019 [facility] Specimen 6:57 PM CDT Source SARS-CoV-2 Undetected Undetected 11/22/2019 [facility] RNA by PCR 6:57 PM CDT Comment: [...] using the doron SARS-CoV-2 ass ay ([employer] performed on the doron 6800 System has r eceived Emergency Use Authorization (EUA) by the U.S. Food and Drug Administ ration, and is modified from the cardiologist's instructions with a bridg ing study. Performance characteristics were verified by [facility] inic in a manner consistent with CLIA requirements. Fact sheets for this Emergency Use Autho rization (EUA) assay can be found at the following links: For Healthcare Providers: https://www.fd a.gov/media/006183/download For Patients: https://www.fda.gov/media/ 679693/download Specimen Anatomical Collection Method Collection Time Receive d Time (Source) Location / / Volume Laterality Varies 11/21/2019 4:15 PM 0 CDT 12:27 PM CDT Hansel Linton D.O. LAB MICROBIOLOGY - GENERAL O RDERABHAVYA Performing Organization Address City/State/ZIP Code Phon e Number [facility] [address] [place], [place] [address] SU[facility] [place] [address] Laboratory Medicine and Pathology [address] [place] documented in this encounter Visit Diagnoses Diagnosis Infection Upper Respiratory - Primary documented in this encounter Additional Health Concerns Infection Onset Date Last Indicated Resolved Time COVID19 Pending 11/13/2019 11/13/2019 11/22/2019 6:57 PM CDT Assessment Noted Time PHQ-9 Depression Total Score: 13 01/17/2019 8:17 AM CD T documented as of this encounter Care Teams Rn Immunology Relationship Specialty Start Date End Date Jerardo Streeter M.D. PCP - General 05/04/19 08/20/[address] [place] [address] documented as of this encounter
--- OUTSIDE RECORDS SUMMARY | 2022-04-20 07:08 | XMS_ITS | Encounter Summary ---
:1970 Author Organization [facility] Address [address] [place] [address] Care Team Providers Name Role Phone Jerardo Streeter M.D. Primary Care Provider Reason for Visit Reason Onset Date Comments Outpatient COVID-19 Testing 01/30/2020 Encounter Details Date Type Department Care Team Description 01/30/2020 External Outreach Department of Hansel Linton Infect ion [facility] Internal Medicine in J, D.O. Respiratory (Primary [place], [place] [address] Dx) [address] [facility] [phone] Social History Tobacco Use Types Packs/Day Years [...] encounter Progress Notes Judi [place] R.N. - 01/30/2020 4:35 PM CDT Encounter [...] RNA, V Symptomatic (01/30/2020 4:37 PM CDT) [facility] gist Method Time Signature SARS-CoV-2 Swab, 01/31/2020 [...] is performed using the Aptima SARS-CoV-2 assay ([employer] which has received Emergency Use Authori zation (EUA) by the U.S. Food and Drug Administration. Fact sheets for this Emergency Use Autho rization (EUA) assay can be found at the following links: For Healthcare Providers: https://www.fd a.gov/media/824968/download For Patients: https://www.fda.gov/media/ 222230/download Specimen Anatomical Collection Method Collection Time Receive d Time (Source) Location / / Volume Laterality Varies 01/30/2020 4:37 PM 0 9:05 (Nasopharynx) CDT PM CDT Hansel Linton D.O. LAB MICROBIOLOGY - GENERAL O RDERABLES Performing Organization Address City/State/ZIP Code Phon e Number [facility]- [address] [place] [address] [place] [address] System in [place] [address] [place] [address] documented in this encounter Visit Diagnoses Diagnosis Infection Upper Respiratory - Primary documented in this encounter Additional Health Concerns Infection Onset Date Last Indicated Resolved Time COVID19 Pending 01/30/2020 01/30/2020 01/31/2020 5:29 AM CDT Assessment Noted Time PHQ-9 Depression Total Score: 13 01/17/2019 8:17 AM CD T documented as of this encounter Care Teams Senior Data Warehouse Architect Relationship Specialty Start Date End Date Jerardo Streeter M.D. PCP - General 05/04/19 08/20/20 [address] [place] [address] documented as of this encounter
--- OUTSIDE RECORDS SUMMARY | 2022-04-20 07:08 | XMS_ITS | Encounter Summary ---
:1970 Author Organization [facility] Address [address] [place] [address] Care Team Providers Name Role Phone Rachel Gomez M.D. Primary Care Provider Unavailable Reason for Referral Outpatient (Routine) - Closed Specialty Diagnoses / Procedures Referred By Contact Refer red To Contact Radiation Oncology Diagnoses Brain MRI Roch 03/28 Chance Lamas [facility] Procedures Office visit M.D. [address] [place] [address] Referral ID Status Reason Start Date Expiration Date Visits Requ ested Visits Authorized [id number] Closed 02/07/2019 02/07/2020 1 1 ER BULLET SECTION SUPERVISOR Reason for Visit Outpatient (Routine) - Closed Specialty Diagnoses / Procedures Referred By Contact Refer red To Contact Radiation Oncology Diagnoses Brain MRI Roch 03/28 Chance Lamas [facility] Procedures Office visit M.D. 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 Do you belong to any clubs [...] or the highest technical, or vocational p Ntiretyram degree you have received? Sex Assigned at Date Recorded Not on file documented as of this encounter Last Filed Vital Signs Vital Sign Reading Time Taken Comments Blood Pressure 120/80 03/30/2019 9:47 AM TRACER BULLET SECTION SUPERVISOR Pulse 78 03/30/2019 9:47 AM TRACER BULLET SECTION SUPERVISOR Temperature 36.3 ??C (97.3 ??F) 03/30/2019 9:47 AM TRACER BULLET SECTION SUPERVISOR Respiratory Rate - - Oxygen Saturation - - Inhaled Oxygen Concentration - - Weight 109 kg (239 lb 6.7 oz) 03/30/2019 9:47 AM TRACER BULLET SECTION SUPERVISOR Height - - Body Mass Index 39.24 03/28/2019 9:54 AM TRACER BULLET SECTION SUPERVISOR documented in this encounter Medications at Time [...] Brain (HCC) SUPERVISED BY: Chance Lamas M.D. ([id number]) HISTORY OF PRESENT ILLNESS Mrs. Debora Valdes [...] ??She was seen by Dr. Quintero at [facility], and changed ALK communication to [...] received her first cycle of cisplatin plus IOS ARCHITECT-16 from December 10 to December 17, her [...] completed on July 23, 2015 at the [facility]. ??She was seen in Medical Oncology by Dr. Gonzáles in [place] on November 21, 2015 who discussed??continuation of [...] Dr. Yaritza Taylor in Medical Oncology at [facility] who ordered??Alectinib??and proceeding with radiation therapy to L4??and??repeat brain MRI 6 weeksafter she starts systemic therapy. ??If there is evidence of COO progression consider gamma knife therapy. ??Observation of [...] lobe lung mass #3 Concurrent cisplatin and IOS ARCHITECT 16 chemotherapy and definitive radiation therapy completed [...] Sarai Yoon P.A.-C., M.S. 03/30/2019 10:14 AM [facility] [place] [address] ER BULLET SECTION SUPERVISOR Associated attestation - Chance Lamas M.D. - 03/30/2019 10:37 AM TRACER BULLET SECTION SUPERVISOR I personally met with the patient and [...] was spent in counseling. Chance Lamas MD [facility] Radiation Therapy [place], [place] documented in this encounter Miscellaneous Notes Addendum Note - Hemalatha Morales - 03/30/2019 10:00 AM TRACER BULLET SECTION SUPERVISOR Encounter addended by: Hemalatha Morales on: 03/30/2019 3:13 PM Actions taken: Letter saved ER BULLET SECTION SUPERVISOR documented in this encounter Plan of Treatment [...] as of this encounter Care Teams Corporate Buyer Relationship Specialty Start Date End Date Rachel Gomez M.D. PCP - General Family Medicine 12/04/18 1 07/04/18 documented as of this encounter
--- OUTSIDE RECORDS SUMMARY | 2022-04-20 07:08 | XMS_ITS | Encounter Summary ---
:1970 Author Organization [facility] Address [address] [place] [address] Care Team Providers Name Role Phone Rachel Gomez M.D. Primary Care Provider Unavailable Reason for Visit Reason Onset Date Comments Advice Only 02/09/2019 Patient had indicate d on Medical Paymaster Of Purses checklist an interest in informat ion about community resources for exercise/yoga/altern ative therapy. In telephone conversation, she specified that s he is particularly interested in yoga resources. Social wo rker provided information about free yoga classes offered by l [employer] to persons being treated for cancer. She inte nds to contact this resource, and is aware she can call if she would like additional resources. Encounter Details Date Type Department Care Team Description 02/09/2019 Clinical Communication Department of Aury Rosario Only (Patient Radiation Oncology Becka Brooke had indic ated on in [facility] Elliott lugo [place] [facility] checklist [address] an interest in [place], [place] information a bout [phone] community resources [phone] for exercise/yoga/a ltern ative therapy. In telephone conversation, s he specified that she is particularly interested in y oga resources. Soci al worker provided information abo ut free yoga class es offered by [employer] to persons being treated for can cer. [...] documented as of this encounter Care Teams Access Consultant Relationship Specialty Start Date End Date Rachel Gomez M.D. PCP - General Family Medicine 12/04/18 1 07/04/18 documented as of this encounter
--- OUTSIDE RECORDS SUMMARY | 2022-04-20 07:08 | XMS_ITS | Encounter Summary ---
:1970 Author Organization [facility] Address [address] [place] [address] Care Team Providers Name Role Phone Jessica Schulz APRN, C.N.P., D.N.P. Primary Care Provider Encounter Details Date Type Department Care Team Description 08/12/2021 Immunization Department of Family Medicine, [facility], in [place], [place] [address] [place] [address] [facility] [phone] Social History Tobacco Use Types Packs/Day Years [...] 1 to 4 times per year 11/21 yazidi services? Do you belong to any clubs [...] documented as of this encounter Care Teams Clay Press Operator Relationship Specialty Start Date End Date Jessica Schulz APRN, C.N.P., D.N.P. PCP - General 12/12/20 [address], [place] [address] documented as of this encounter
--- OUTSIDE RECORDS SUMMARY | 2022-04-20 07:08 | XMS_ITS | Encounter Summary ---
:1970 Author Organization [facility] Address [address] [place] [address] Care Team Providers Name Role Phone Jessica Schulz APRN, C.N.P., D.N.P. Primary Care Provider Encounter Details Date Type Department Care Team Description 01/17/2021 Immunization Department of Family Medicine, [facility] [place], in [place], [place] [address], [place] [address] [facility] [phone] Social History Tobacco Use Types Packs/Day Years [...] documented as of this encounter Care Teams Clinical Documentation Developer Relationship Specialty Start Date End Date Jessica Schulz APRN, C.N.P., D.N.P. PCP - General 12/12/20 [address], [place] [address] documented as of this encounter
--- OUTSIDE RECORDS SUMMARY | 2022-04-20 07:08 | XMS_ITS | Encounter Summary ---
:1970 Author Organization [facility] Address [address] [place] [address] Care Team Providers Name Role Phone Jerardo Streeter M.D. Primary Care Provider Reason for Visit Reason Onset Date Comments Outpatient COVID-19 Testing 01/25/2020 Encounter Details Date Type Department Care Team Description 01/25/2020 External Outreach Department of Hansel Linton Infect ion [facility] Internal Medicine in J, D.O. Respiratory (Primary [place], [place] [address] Dx) [address] [facility] [place] [phone] Social History Tobacco Use Types Packs/Day Years [...] - 01/25/2020 11:36 AM CDT Addended by: ULIS GARCIA on: 01/28/2020 11:04 AM Modules accepted: [...] documented as of this encounter Care Teams Sap Mobility Architect Relationship Specialty Start Date End Date Jerardo Streeter M.D. PCP - General 05/04/19 08/20/20 [address] [place] [address] documented as of this encounter
--- OUTSIDE RECORDS SUMMARY | 2022-04-20 07:08 | XMS_ITS | Encounter Summary ---
:1970 Author Organization [facility] Address [address] [place] [address] Care Team Providers Name Role Phone Valente Hester M.D. Primary Care Provider Encounter Details Date Type Department Care Team Description 12/10/2020 Orders Only [facility] MNT Edwin Hester Examination Diabetes Mellitus; Silva Victor Screening Lipid [address] [place] [phone] Social History Tobacco Use Types Packs/Day Years [...] or relatives? How often do you attend congregational or 1 to 4 times per year 11/21 tenriism services? Do you belong to any clubs or No 12/08/2018 organizations such as congregational groups, unions, fraternal or athletic groups, or [...] documented as of this encounter Care Teams Gasket Winder Relationship Specialty Start Date End Date Valente Hester M.D. PCP - General 08/21/20 12/11/20 [address] [place] [phone] documented as of this encounter
--- OUTSIDE RECORDS SUMMARY | 2022-04-20 07:08 | XMS_ITS | Encounter Summary ---
:1970 Author Organization [facility] Address [address] [place] [address] Care Team Providers Name Role Phone Valente Hester M.D. Primary Care Provider Encounter Details Date Type Department Care Team Description 10/25/2020 Patient Self-Triage CONNECTED CARE Symptom Vaccine Specialist, Provider Social History Tobacco Use Types Packs/Day [...] documented as of this encounter Care Teams Dog Boarder Relationship Specialty Start Date End Date Vaelnte Hester M.D. PCP - General 08/21/20 12/11/20 [address] [place] [phone] documented as of this encounter
--- OUTSIDE RECORDS SUMMARY | 2022-04-20 07:08 | XMS_ITS | Encounter Summary ---
:1970 Author Organization [facility] Address [address] [place] [address] Care Team Providers Name Role Phone Rachel Gomez M.D. Primary Care Provider Unavailable Reason for Referral Outpatient (Routine) - Closed Specialty Diagnoses / Procedures Referred By Contact Refer red To Contact Radiation Oncology Diagnoses Brain MRI Roch 03/28 Chance Lamas [facility] Procedures Office visit M.DEvette [address] [place] [address] Referral ID Status Reason Start Date Expiration Date Visits Requ ested Visits Authorized [id number] Closed 02/07/2019 02/07/2020 1 1 MRI/CAT/PET Scan (Routine) - Closed Specialty Diagnoses / Procedures Referred By Contact Refer red To Contact Radiology Diagnoses Secondary Malignant Neoplasm Brain (HCC) Chance Lamas M.D. [facility] Procedures MR Brain without and with IV Contrast [address] [place] [address] Referral ID Status Reason Start Date Expiration Date Visits Requ ested Visits Authorized [id number] Closed 02/07/2019 02/07/2020 1 1 Radiation Therapy (Routine) - Canceled Specialty Diagnoses / Procedures Referred By Contact Refer red To Contact Diagnoses Secondary Malignant Neoplasm Bone (HCC) Chance Lamas M.D. [facility] Procedures Management Visit [address] [place] [address] Referral ID Status Reason Start Date Expiration Date Visits V isits Requested Authorized [id number] Canceled 01/27/2019 01/27/2020 1 1 Reason for Visit Radiation Therapy (Routine) - Canceled Specialty Diagnoses / Procedures Referred By Contact Refer red To Contact Diagnoses Secondary Malignant Neoplasm Bone (HCC) Chance Lamas M.D. [facility] Procedures Management Visit [address] [place] [address] Referral ID Status Reason Start Date Expiration Date Visits V isits Requested Authorized [id number] Canceled 01/27/2019 01/27/2020 1 1 Encounter Details Date Type Department Care Team Description 02/07/2019 Hospital Encounter Department of Chance Lamas Malignant Neoplasm Brain (HCC) (Primary Dx); Radiation Oncology Silva Shepherd Secondary Malignant Neoplasm Bone (HCC) in [place], [address] [facility], [place] [address] [facility] [address] [place], [place] [phone] [address] (Work) [phone] Social History Tobacco Use Types Packs/Day Years [...] 20 mg tablet total) by mouth daily. oxyCODONE (ROXICODONE) Take 1 tablet (5 mg 20 tablet 0 01/2203/30/2019 5 mg immediate release total) by mouth tabletIndications: every 4 (four) hours Acute Pain Exception Indication: Acute Pain Exception. documented as of this encounter Progress Notes Chance Lamas M.D. - 02/07/2019 8:15 AM CDT SUBJECTIVE REASON FOR VISIT Evaluation for side effects while receiving radiation treatment for 1. Secondary Malignant Neoplasm Bone (HCC) SUPERVISED BY: Chance Lamas M.D. ([id number]) HISTORY OF PRESENT ILLNESS Mrs. Debora Valdes [...] ??She was seen by Dr. Quintero at [facility], and changed ALK communication to [...] received her first cycle of cisplatin plus INTERNET MARKETING STRATEGIST-16 from December 10 to December 17, her [...] completed on July 23, 2015 at the [facility]. ??She was seen in Medical Oncology by Dr. Gonzáles in [place] on November 21, 2015 who discussed??continuation of [...] Dr. Yaritza Taylor in Medical Oncology at [facility] who ordered Alectinib and proceeding with radiation therapy to L4 and repeat brain MRI 6 weeks after she starts systemic therapy. If there is evidence of DRIVER progression consider gamma knife therapy. Observation of [...] lobe lung mass #3 Concurrent cisplatin and INTERNET MARKETING STRATEGIST 16 chemotherapy and definitive radiation therapy completed [...] has ordered for repeat brain MRI in [place] 6 weeks after initiation of Alectinib which [...] her follow-up brain MRI. Chance Lamas MD [facility] [place], [place] documented in this encounter Miscellaneous Notes [...] and with IV Contrast (03/28/2019 11:00 AM SPICE FUMIGATOR) Anatomical Region Laterality Modality Head, Brain, Neuroradiology RST LOS, Neuroradiology ARZ N/A Magnetic Resonance LOS, Neuroradiology FLA LOS Specimen (Source) Anatomical Collection Method Collection Time Re ceived Time Location / / Volume Laterality 03/28/2019 1:02 PM SPICE FUMIGATOR Impressions 03/28/2019 1:13 PM SPICE FUMIGATOR No intracranial metastases. Narrative 03/28/2019 1:13 PM SPICE FUMIGATOR EXAM: MR BRAIN WITHOUT AND WITH IV [...] IMPRESSION: No intracranial metastases. Chance Lamas M.D. 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 PCP - General Family Medicine 12/04/18 1 07/04/18 documented as of this encounter
--- OUTSIDE RECORDS SUMMARY | 2022-04-20 07:08 | XMS_ITS | Encounter Summary ---
:1970 Author Organization [facility] Address [address] [place] [address] Care Team Providers Name Role Phone Jessica Schulz APRN, C.N.P., D.N.P. Primary Care Provider Encounter Details Date Type Department Care Team Description 05/29/2021 Orders Only [facility] PCP [facility] MNT Jessica Schulz, Screening Mammogram PRATIK, C.N.P., Breast Cancer D.N.P. [address], [place] [address] Social History Tobacco Use Types [...] or relatives? How often do you attend restoration or 1 to 4 times per year 11/21 shinto services? Do you belong to any clubs or No 12/08/2018 organizations such as restoration groups, unions, fraternal or athletic groups, or [...] highest level of school Associate degree: shanita linda, 12/08/2018 you have completed or the highest [...] documented as of this encounter Care Teams Pre K Special Education Teacher Relationship Specialty Start Date End Date Jessica Schulz APRN, C.N.P., D.N.P. PCP - General 12/12/[address] [place] [phone] documented as of this encounter
--- OUTSIDE RECORDS SUMMARY | 2022-04-20 07:08 | XMS_ITS | Encounter Summary ---
:1970 Author Organization [facility] Address [address] [place] [address] Care Team Providers Name Role Phone Rachel Gomez M.D. Primary Care Provider Unavailable Reason for Referral MRI/CAT/PET Scan (Routine) - Closed Specialty Diagnoses / Procedures Referred By Contact Refer red To Contact Radiology Diagnoses Secondary Malignant Neoplasm Brain (HCC) Chance Lamas M.D. [facility] Procedures MR Brain without and with IV Contrast [address] [place] [address] Referral ID Status Reason Start Date Expiration Date Visits Requ ested Visits Authorized [id number] Closed 02/07/2019 02/07/2020 1 1 ORM CAP OPERATOR Reason for Visit MRI/CAT/PET Scan (Routine) - Closed Specialty Diagnoses / Procedures Referred By Contact Refer red To Contact Radiology Diagnoses Secondary Malignant Neoplasm Brain (HCC) Chance Lamas M.D. [facility] Procedures MR Brain without and with IV Contrast [address] [place] [address] Referral ID Status Reason Start Date Expiration Date Visits Requ ested Visits Authorized [id number] Closed 02/07/2019 02/07/2020 1 1 Encounter Details Date Type Department Care Team Description 03/28/2019 Hospital Encounter Department of Chance Lamas Malignant Radiology, Shaheed Shepherd M.D. Neoplasm Brain (HCC) [facility] in [address] [facility] [address] [address] [facility] [phone] [place], [place] (Work) [phone] Social History Tobacco Use Types Packs/Day Years [...] or relatives? How often do you attend confucianism or 1 to 4 times per year 11/21 roman catholic services? Do you belong to any clubs or No 12/08/2018 organizations such as confucianism groups, unions, fraternal or athletic groups, or [...] 166.4 cm (5' 5.5) 03/28/2019 9:54 AM UNIFORM CAP OPERATOR Body Mass Index - - documented in [...] this AND WITH IV (most inpatients AM UNIFORM CAP OPERATOR Malignant procedure a re in CONTRAST and all Neoplasm Brain the results outpatients) (HCC) section. documented in this encounter Results MR Brain without and with IV Contrast (03/28/2019 11:00 AM UNIFORM CAP OPERATOR) Anatomical Region Laterality Modality Head, Brain, Neuroradiology RST LOS, Neuroradiology ARZ N/A Magnetic Resonance LOS, Neuroradiology FLA LOS Specimen (Source) Anatomical Collection Method Collection Time Re ceived Time Location / / Volume Laterality 03/28/2019 1:02 PM UNIFORM CAP OPERATOR Impressions 03/28/2019 1:13 PM UNIFORM CAP OPERATOR No intracranial metastases. Narrative 03/28/2019 1:13 PM UNIFORM CAP OPERATOR EXAM: MR BRAIN WITHOUT AND WITH IV [...] IMPRESSION: No intracranial metastases. Chance Lamas M.D. [facility] PROCEDURES documented in this encounter Visit Diagnoses Diagnosis Secondary Malignant Neoplasm Brain (HCC) documented in this encounter Administered Medications Inactive Administered Medications - up to 3 most recent administrations Medication Order MAR Action Action Date Dose Rate Site gadobutrol injection 0.01-30 mL Given 03/28/2019 10:49 AM UNIFORM CAP OPERATOR 11 mL (GADAVIST) 0.01-30 mL, intravenous, Once in imaging, contrast, Starting on Wed03/28/19 at 0951, For 1 dose, Imaging Protocol Orders, Dose per Radiant Medication Guidelines documented in this encounter Additional Health Concerns Assessment Noted Time PHQ-9 Depression Total Score: 13 01/17/2019 8:17 AM CD T documented as of this encounter Care Teams Cable Installer Repairer Relationship Specialty Start Date End Date Rachel Gomez M.D. PCP - General Family Medicine 12/04/18 1 07/04/18 documented as of this encounter
--- OUTSIDE RECORDS SUMMARY | 2022-04-20 07:08 | XMS_ITS | Encounter Summary ---
:1970 Author Organization [facility] Address [address] [place] [address] Care Team Providers Name Role Phone Jerardo Streeter M.D. Primary Care Provider Encounter Details Date Type Department Care Team Description 02/26/2020 Orders Only [facility] PCP [facility] MNT Jerardo Streeter S creening Mammogram M.DEvette Breast Cancer [address] [place] [address] Social History Tobacco Use Types Packs/Day Years [...] or relatives? How often do you attend latter-day or 1 to 4 times per year 11/21 advent services? Do you belong to any clubs or No 12/08/2018 organizations such as latter-day groups, unions, fraternal or athletic groups, or [...] documented as of this encounter Care Teams Synchro Assembler Relationship Specialty Start Date End Date Jerardo Streeter M.D. PCP - General 05/04/19 08/20/20 [address] [place] [address] documented as of this encounter
--- OUTSIDE RECORDS SUMMARY | 2022-04-20 07:08 | XMS_ITS | Encounter Summary ---
:1970 Author Organization [facility] Address [address] [place] [address] Care Team Providers Name Role Phone Rachel Gomez M.D. Primary Care Provider Unavailable Encounter Details Date Type Department Care Team Description 02/07/2019 Hospital Encounter Department of Radiation Gracia Lamas, Oncology in [facility] [place] [address] [phone] (Wo rk) [address] [phone] Social History Tobacco Use Types Packs/Day Years [...] documented as of this encounter Care Teams Tape Making Machine Operator Relationship Specialty Start Date End Date Rachel Gomez M.D. PCP - General Family Medicine 12/04/18 1 07/04/18 documented as of this encounter
--- OUTSIDE RECORDS SUMMARY | 2022-04-20 07:08 | XMS_ITS | Encounter Summary ---
:1970 Author Organization [facility] Address [address] [place] [address] Care Team Providers Name Role Phone Jessica Scuhlz APRN, C.N.P., D.N.P. Primary Care Provider Reason for Visit Reason Comments Med Refill Encounter Details Date Type Department Care Team Description 09/19/2021 Refill Department of Oncology in [facility], Aniket Valenzuela M.D. Med Refill [place], [place] [address] [facility] [address] [place] [address] [place] [address] [phone] Social History Tobacco Use Types Packs/Day Years [...] or relatives? How often do you attend temple or 1 to 4 times per year 11/21 alevism services? Do you belong to any clubs or No 12/08/2018 organizations such as temple groups, unions, fraternal or athletic groups, or [...] documented as of this encounter Care Teams Grand Jury Deputy Sheriff Relationship Specialty Start Date End Date Jessica Schulz APRN, C.N.P., D.N.P. PCP - General 12/12/20 [address] [place] [phone] documented as of this encounter
--- OUTSIDE RECORDS SUMMARY | 2022-04-20 07:08 | XMS_ITS | Encounter Summary ---
:1970 Author Organization [facility] Address [address] [place] [address] Care Team Providers Name Role Phone Jerardo Streeter M.D. Primary Care Provider Encounter Details Date Type Department Care Team Description 05/27/2020 Orders Only [facility] PCP [facility] MNT Jerardo Streeter S creening Examination Diabetes Mellitus; M.D. Screening Lipid [address] [place] [phone] Social History Tobacco Use Types Packs/Day Years [...] or relatives? How often do you attend christian or 1 to 4 times per year 11/21 caodaism services? Do you belong to any clubs or No 12/08/2018 organizations such as christian groups, unions, fraternal or athletic groups, or [...] documented as of this encounter Care Teams Athletic Shoe Designer Relationship Specialty Start Date End Date Jerardo Streeter M.D. PCP - General 05/04/19 08/20/20 [address] [place] [address] documented as of this encounter
--- OUTSIDE RECORDS SUMMARY | 2022-04-20 07:08 | XMS_ITS | Encounter Summary ---
:1970 Author Organization [facility] Address [address] [place] [address] Care Team Providers Name Role Phone Jerardo Streeter M.D. Primary Care Provider Reason for Visit Reason Onset Date Comments Outpatient COVID-19 Testing 10/25/2019 Encounter Details Date Type Department Care Team Description 10/25/2019 External Outreach Department of Hansel Linton Infect ion [facility] in J, D.O. Respiratory (Primary [place], [place] [address] Dx) [address] [place] [phone] Social History Tobacco Use Types Packs/Day Years [...] 1 to 4 times per year 11/21 hoahaoism services? Do you belong to any clubs [...] Coronavirus-2, PCR Symptomatic (10/25/2019 11:52 AM CDT) Patholo gist Method Time Signature SARS Swab, 10/26/2019 [...] and its performa nce characteristics determined by [facility] in a manner co nsistent with CLIA requirements. Independent review by the U.S. Food and Drug Administration is pending. Visit the CDC website: https://www.cdc.gov/coronavirus/ ?? for the most recent guidelines on [place] virus testing. Fact Sheet for Healthcare Providers: (https://www.lee memorial hospitalPingMD.com/it-mmfil es/ Provider_Fact_Sheet_for_[facility]_COVI D-19.pdf) Fact Sheet for Patients: (https://www.[facility] hospitallabs.com/it-mmfil es/ Patient_Fact_Sheet_for_COVID-19.pdf) Specimen Anatomical Collection Method Collection Time Receive d Time (Source) Location / / Volume Laterality Varies 10/25/2019 11:52 10/25/2019 2:31 (Nasopharynx) AM CDT PM CDT Hansel Linton D.O. LAB MICROBIOLOGY - GENERAL O RDERABLES Performing Organization Address City/State/[facility] Code Phon e Number [facility] - [address] [place] [phone] [facility] [place] [address] Laboratories-[facility] 200 [facility] documented in this encounter Visit Diagnoses Diagnosis Infection Upper Respiratory - Primary documented in this encounter Additional Health Concerns Infection Onset Date Last Indicated Resolved Time COVID19 Pending 10/25/2019 10/25/2019 10/26/2019 1:54 AM CDT Assessment Noted Time PHQ-9 Depression Total Score: 13 01/17/2019 8:17 AM CD T documented as of this encounter Care Teams Scoring Machine Operator Relationship Specialty Start Date End Date Jerardo Streeter M.D. PCP - General 05/04/19 08/20/[address] [place] [address] documented as of this encounter
--- OUTSIDE RECORDS SUMMARY | 2022-04-20 07:08 | XMS_ITS | Encounter Summary ---
:1970 Author Organization [facility] Address [address] [place] [address] Care Team Providers Name Role Phone Rachel Gomez M.D. Primary Care Provider Unavailable Reason for Referral Radiation Therapy (Routine) - Canceled Specialty Diagnoses / Procedures Referred By Contact Refer red To Contact Diagnoses Secondary Malignant Neoplasm Bone (HCC) Chance Lamas M.D. [facility] Procedures Management Visit [address] [place] [address] Referral ID Status Reason Start Date Expiration Date Visits V isits Requested Authorized [id number] Canceled 01/27/2019 01/27/2020 1 1 Reason for Visit Radiation Therapy (Routine) - Canceled Specialty Diagnoses / Procedures Referred By Contact Refer red To Contact Diagnoses Secondary Malignant Neoplasm Bone (HCC) Chance [facility].D. [facility] Procedures Management Visit [address] [place] [address] Referral ID Status Reason Start Date Expiration Date Visits V isits Requested Authorized [id number] Canceled 01/27/2019 01/27/2020 1 1 Encounter Details Date Type Department Care Team Description 02/03/2019 Hospital Encounter Department of Chance Lamas Malignant Radiation Oncology Silva Shepherd Neoplasm Bone (HCC) in [place], [address] [place], [place] [address] [facility] [address] [place], [place] [phone] (Work) [phone] Social History Tobacco Use Types Packs/Day Years [...] 1 to 4 times per year 11/21 temple services? Do you belong to any clubs [...] or the highest technical, or vocational p [employer] degree you have received? Sex Assigned at [...] 0 02/07/2019 tablet every 12 (twelve) hours. oxyCODONE (ROXICODONE) Take 1 tablet (5 mg [...] Bone (HCC) SUPERVISED BY: Chance Lamas M.D. ([id number]) HISTORY OF PRESENT ILLNESS Mrs. Debora Valdes [...] lobe lung mass #3 Concurrent cisplatin and GROCERY CLERK CHECKING 16 chemotherapy and definitive radiation therapy completed [...] documented as of this encounter Care Teams Packaging Technician Relationship Specialty Start Date End Date Rachel Gomez M.D. PCP - General Family Medicine 12/04/18 1 07/04/18 documented as of this encounter
--- OUTSIDE RECORDS SUMMARY | 2022-04-20 07:08 | XMS_ITS | Encounter Summary ---
:1970 Author Organization [facility] Address [address] [place] [address] Care Team Providers Name Role Phone Rachel Gomez M.D. 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 ([id number]) Treatment Intent: Palliative Concomitant Therapy: None Treatment [...] Sarai Yoon P.A.-C., M.S., 02/08/2019 11:11 AM [facility] Rad[facility] Center [address] [place] [address] documented in this encounter Plan of Treatment Not on filedocumented as of this encounter Visit Diagnoses Diagnosis Malignant Neoplasm Of Lower Lobe, Bronch us Or Lung Laterality Unknown (HCC) - Primary Secondary Malignant Neoplasm Bone (HCC) documented in this encounter Additional Health Concerns Assessment Noted Time PHQ-9 Depression Total Score: 13 01/17/2019 8:17 AM CD T documented as of this encounter Care Teams Commercial Account Manager Relationship Specialty Start Date End Date Rachel Gomez M.D. PCP - General Family Medicine 12/04/18 1 07/04/18 documented as of this encounter
--- OUTSIDE RECORDS SUMMARY | 2022-04-20 07:08 | XMS_ITS | Encounter Summary ---
:1970 Author Organization [facility] Address [address] [place] [address] Care Team Providers Name Role Phone Valente Hester M.D. Primary Care Provider Encounter Details Date Type Department Care Team Description 08/23/2020 Orders Only [facility] PCP TH MNSa christian Farooq M.D. [address] [place], [place] [phone] (Wo rk) Social History [...] or relatives? How often do you attend anabaptist or 1 to 4 times per year 11/21 anabaptism services? Do you belong to any clubs or No 12/08/2018 organizations such as anabaptist groups, unions, fraternal or athletic groups, or [...] documented as of this encounter Care Teams It Auditor Relationship Specialty Start Date End Date Valente Hester M.D. PCP - General 08/21/20 12/11/20 [address] [place] [phone] documented as of this encounter
--- OUTSIDE RECORDS SUMMARY | 2022-04-20 07:09 | XMS_ITS | Encounter Summary ---
:1970 Author Organization [facility] Address [address] [place] [address] Care Team Providers Name Role Phone Rachel Gomez M.D. 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 [facility] Procedures MR Brain without and with IV Contrast [address] [place] [address] Referral ID Status Reason Start Date Expiration Date Visits Requ ested Visits Authorized [id number] Closed 01/25/2019 01/25/2020 1 1 Encounter Details Date Type Department Care Team Description 01/26/2019 Hospital Encounter Department of Chance Lamas Neoplasm Radiology, Frontier K, M.D. Of Lung Lower Lobe North, in [address] Or Bronchus Right [place], [place] ([facility]) [place] [address] [phone] [place], [place] (Work) [phone] Social History Tobacco Use Types Packs/Day Years [...] the findings section of this report). Chance Lamas M.D. [facility] PROCEDURES documented [...] Once in imaging, contrast, Starting on Valerie 01/26/19 at 0812, For 1 dose, Imaging Protocol [...] documented as of this encounter Care Teams Shoeshiner Relationship Specialty Start Date End Date Rachel Gomez M.D. PCP - General Family Medicine 12/04/18 1 07/04/18 documented as of this encounter
--- OUTSIDE RECORDS SUMMARY | 2022-04-20 07:09 | XMS_ITS | Encounter Summary ---
:1970 Author Organization [facility] Address [address] [place] [address] Care Team Providers Name Role Phone Rachel Gomez M.D. 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 [address] [place], [place] [phone] Referral ID Status Reason Start Date Expiration Date Visits Requ ested Visits Authorized [id number] Closed 01/24/2019 02/23/2019 6 6 Encounter Details Date Type Department Care Team Description 01/18/2019 Clinical Communication Department of Radiation Cristel Vance, Oncology in [place], [place], M.S. [place] [address] [facility] [place] [address] [place] [phone] Social History Tobacco Use Types Packs/Day Years [...] or relatives? How often do you attend anglican or 1 to 4 times per year 11/21 samaritan services? Do you belong to any clubs or No 12/08/2018 organizations such as anglican groups, unions, fraRoam & Wander or athletic groups, or school groups? How [...] has been placed to be done in [facility]. We will also arrange Radiation Oncology consultation after the PET scan. Sarai Vance P.A.-C. ----- Message from Cassandra Ibrahim R.N. sent at 01/18/2019 9:34 AM CDT ----- Regarding: FW: Possible metastasis Sarai, Can we still try and order in [place]? Wanted to touch base with you before I work to T up order. Thankscassandra ----- Message ----- From: Rachel Gomez M.D. Sent: 01/16/2019 7:58 AM CDT To: Fortino Mtz M.D., Chance Lamas M.D. Subject: RE: Possible metastasis I just got a message back that says [place] will not schedule this scan for me. Any chance you canarrange this? Thanks Rachel ----- Message ----- From: Chance Lamas M.D. [...] RADIOPHARMACEUTICAL/MEDS: Route: intravenous fludeoxyglucose F 18 injection LONGTERM (FDG F-18),12.7 millicurie Procedure Note Donald Jesus [...] RADIOPHARMACEUTICAL/MEDS: Route: intravenous fludeoxyglucose F 18 injection LONGTERM (FDG F-18),12.7 millicurie IMPRESSION: 1. L4 vertebral [...] documented as of this encounter Care Teams Choke Reamer Relationship Specialty Start Date End Date Rachel Gomez M.D. PCP - General Family Medicine 12/04/18 1 07/04/18 documented as of this encounter
--- OUTSIDE RECORDS SUMMARY | 2022-04-20 07:09 | XMS_ITS | Encounter Summary ---
:1970 Author Organization [facility] Address [address] [place] [address] Care Team Providers Name Role Phone Rachel Gomez M.D. Primary Care Provider Unavailable Reason for Referral Outpatient (Routine) - Closed Specialty Diagnoses / Procedures Referred By Contact Refer red To Contact Radiation Oncology Diagnoses PAR REVIEW Chance Lamas M.D. [facility] [place] [facility] Procedures ANTON EST [address] [place] [address] Referral ID Status Reason Start Date Expiration Date Visits Requ ested Visits Authorized [id number] Closed 01/25/2019 01/25/2020 1 1 Reason for Visit Outpatient (Routine) - Closed Specialty Diagnoses / Procedures Referred By Contact Refer red To Contact Radiation Oncology Diagnoses PAR REVIEW Chance Lamas M.D. [facility] [place] [facility] Procedures ANTON EST [address] [place] [address] Referral ID Status Reason Start Date Expiration Date Visits Requ ested Visits Authorized [id number] Closed 01/25/2019 01/25/2020 1 1 Encounter Details Date Type Department Care Team Description 02/01/2019 Hospital Encounter Department of Chance Lamas Malignant Radiation Oncology [place] Shepherd Neoplasm Bone (HCC) in [place], [address] (Primary Dx) [place], [place] [address] [address] [place], [place] [phone] [address] (Work) [phone] Social History Tobacco Use Types Packs/Day Years [...] organizations such as latter day groups, unions, fraProfoundis Labs or athletic groups, or school groups? How [...] 11:09 AM CDT PATIENT NAME: [facility] #: [id number] Address: [address] [place] [phone] Age: 48 y.o. Date of Service: 02/01/19 Provider: Chance Lamas M.D. Place of Service: [facility] Rad[facility] Oncology [address] [place] [address] CHIEF COMPLAINT/REASON FOR VISIT The encounter diagnosis [...] ??She was seen by Dr. Quintero at [facility], and changed ALK communication to [...] received her first cycle of cisplatin plus STATEMENT REQUEST CLERK-16 from December 10 to December 17, her [...] completed on July 23, 2015 at the [facility]. She was seen in Medical Oncology by Dr. Gonzáles in [facility] on November 21, 2015 who discussed [...] Dr. Yaritza Taylor in Medical Oncology at [facility] who ordered Alectinib and proceeding with radiation therapy to L4 and repeat brain MRI 6 weeks after she starts systemic therapy. If there is evidence of TILE SORTER progression consider gamma knife therapy. Observation of [...] lobe lung mass #3 Concurrent cisplatin and STATEMENT REQUEST CLERK 16 chemotherapy and definitive radiation therapy completed [...] by: Chance Lamas M.D. 02/01/2019 11:09 AM [facility] [address] [place] [address] FAX: [phone] documented in this encounter Miscellaneous Notes Addendum [...] as of this encounter Care Teams Supervisor Graphite Relationship Specialty Start Date End Date Rachel Gomez M.D. PCP - General Family Medicine 12/04/18 1 07/04/18 documented as of this encounter
--- OUTSIDE RECORDS SUMMARY | 2022-04-20 07:09 | XMS_ITS | Encounter Summary ---
:1970 Author Organization [facility] Address [address] [place] [address] Care Team Providers Name Role Phone Rachel Gomez M.D. Primary Care Provider Unavailable Reason for Visit Reason Onset Date Comments PET CT Whole Body FDG 01/12/[address] W hole Body FDG Encounter Details Date Type Department Care Team Description 01/12/2019 Clinical Communication Department of Rachel Gomez PE CT Whole Body Family MedicineBianca M.D. FDG (Order for PET [facility], CT Whole Mark dy FDG) in [place], [place] [address] [place] [address] Social History Tobacco Use Types [...] a PET CT WHOLE BODY was discontinued. [facility] does not offer this test. If you have any further questions you may reply to this message or call us at [phone]. Thank you, [facility] Ancillary Testing Services documented in this encounter Plan of Treatment Not on filedocumented as of this encounter Visit Diagnoses Not on filedocumented in this encounter Care Teams Utility Specialist Relationship Specialty Start Date End Date Rachel Gomez M.D. PCP - General Family Medicine 12/04/18 1 07/04/18 documented as of this encounter
--- OUTSIDE RECORDS SUMMARY | 2022-04-20 07:09 | XMS_ITS | Encounter Summary ---
:[address] [facility] Address [address] [place] [address] Care Team Providers Name Role Phone Rachel Gomez M.D. Primary Care Provider Unavailable Encounter Details Date Type Department Care Team Description 01/17/2019 Clinical Communication Department of Jairo Escudero, MedicineMike M.D. [facility], in [place], [place] [address] [place] [phone] Social History Tobacco Use Types Packs/Day Years [...] or relatives? How often do you attend amish or 1 to 4 times per year 11/21 mu-ism services? Do you belong to any clubs or No 12/08/2018 organizations such as amish groups, unions, fraternal or athletic groups, or [...] documented as of this encounter Care Teams Customer Service Professional Relationship Specialty Start Date End Date Rachel Gomez M.D. PCP - General Family Medicine 12/04/18 1 07/04/18 documented as of this encounter
--- OUTSIDE RECORDS SUMMARY | 2022-04-20 07:09 | XMS_ITS | Encounter Summary ---
:1970 Author Organization [facility] Address [address] [place] [address] Care Team Providers Name Role Phone Rachel Gomez M.D. Primary Care Provider Unavailable Encounter Details Date Type Department Care Team Description 01/11/2019 Clinical Communication Department of Jairo Escudero, MedicineMike M.D. [facility], in [place], [place] [address] [place] [phone] Social History Tobacco Use Types Packs/Day Years [...] 1 to 4 times per year 11/21 lutheran services? Do you belong to any clubs [...] Miscellaneous Notes Telephone Encounter - Lucy Sierra C.MKboy - 01/19/2019 2:00 PM CDT Patient was [...] on filedocumented in this encounter Care Teams Marble Cleaner Relationship Specialty Start Date End Date Rachel Gomez M.D. PCP - General Family Medicine 12/04/18 1 07/04/18 documented as of this encounter
--- OUTSIDE RECORDS SUMMARY | 2022-04-20 07:09 | XMS_ITS | Encounter Summary ---
:1970 Author Organization [facility] Address [address] [place] [address] Care Team Providers Name Role Phone Rachel Gomez M.D. Primary Care Provider Unavailable Encounter Details Date Type Department Care Team Description 01/09/2019 Orders Only Department of Rachel Escudero Ra diculopathy Lumbar Fourth (Primary Dx); Mike Allison M.D. [facility], in [place], [place] [address] [place] [address] Social History Tobacco Use Types [...] Unspecified documented in this encounter Care Teams Computer Numerical Control Operator Relationship Specialty Start Date End Date Rachel Gomez M.D. PCP - General Family Medicine 12/04/18 1 07/04/18 documented as of this encounter
--- OUTSIDE RECORDS SUMMARY | 2022-04-20 07:09 | XMS_ITS | Encounter Summary ---
:[address] [facility] Address [address] [place] [address] Care Team Providers Name Role Phone Rachel Gomez M.D. Primary Care Provider Unavailable Reason for Referral Radiation Therapy (Routine) - Closed Specialty Diagnoses / Procedures Referred By Contact Refer red To Contact Diagnoses Secondary Malignant Neoplasm Bone (HCC) Chance Lamas M.D. [facility] Procedures Prior Auth Rad Tx OK RADTN TX DEL >=1 MEV COMPLEX [address] [place] [address] Referral ID Status Reason Start Date Expiration Date Visits Requ ested Visits Authorized [id number] Closed 01/24/2019 01/24/2020 5 5 Encounter Details Date Type Department Care Team Description 01/24/2019 Orders Only Department of Chance Lamas Secondar y Malignant Radiation Oncology in [place] Neoplasm Bone (HCC) [facility] [address] (Primary Dx) [address] [place] [phone] Social History Tobacco Use Types Packs/Day Years [...] 1 to 4 times per year 11/21 pentecostalism services? Do you belong to any clubs or No 12/08/2018 organizations such as jewish groups, unions, fraBioTeSys or athletic groups, or school groups? How [...] documented as of this encounter Care Teams Rewards Consultant Relationship Specialty Start Date End Date Rachel Gomez M.D. PCP - General Family Medicine 12/04/18 1 07/04/18 documented as of this encounter
--- OUTSIDE RECORDS SUMMARY | 2022-04-20 07:09 | XMS_ITS | Encounter Summary ---
:1970 Author Organization [facility] Address [address] [place] [address] Care Team Providers Name Role Phone Rachel Gomez M.D. Primary Care Provider Unavailable Encounter Details Date Type Department Care Team Description 02/03/2019 Hospital Encounter Department of Radiation Gracia Lamas, Oncology in [place] [address] [phone] (Wo rk) [address] [phone] Social History Tobacco Use Types Packs/Day Years [...] documented as of this encounter Care Teams Master Black Belt Relationship Specialty Start Date End Date Rachel Gomez M.D. PCP - General Family Medicine 12/04/18 1 07/04/18 documented as of this encounter
--- OUTSIDE RECORDS SUMMARY | 2022-04-20 07:09 | XMS_ITS | Encounter Summary ---
:1970 Author Organization [facility] Address [address] [place] [address] Care Team Providers Name Role Phone Rachel Gomez M.D. 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 [facility] Procedures MR Brain without and with IV Contrast [address] [place] [address] Referral ID Status Reason Start Date Expiration Date Visits Requ ested Visits Authorized [id number] Closed 01/25/2019 01/25/2020 1 1 Outpatient (Routine) - Closed Specialty Diagnoses / Procedures Referred By Contact Refer red To Contact Radiation Oncology Diagnoses PAR REVIEW Chance Lamas M.D. [facility] Procedures ANTON EST [address] [place] [address] Referral ID Status Reason Start Date Expiration Date Visits Requ ested Visits Authorized [id number] Closed 01/25/2019 01/25/2020 1 1 Outpatient (Routine) - Closed Specialty Diagnoses / Procedures Referred By Contact Refer red To Contact Diagnoses Secondary Malignant Neoplasm Soft Tissue (HCC) Chance Lamas M.D. [facility] Procedures US Soft Tissue Biopsy [address] [place] [address] Referral ID Status Reason Start Date Expiration Date Visits Requ ested Visits Authorized [id number] Closed 01/25/2019 01/25/2020 1 1 Outpatient (Routine) - Closed Specialty Diagnoses / Procedures Referred By Contact Refer red To Contact Radiation Oncology Diagnoses PAR Chance Lam[facility] M.D. [facility] [address] [place] [address] Referral ID Status Reason Start Date Expiration Date Visits Requ ested Visits Authorized [id number] Closed 01/24/2019 01/24/2020 1 1 Reason for Visit Outpatient (Routine) - Closed Specialty Diagnoses / Procedures Referred By Contact Refer red To Contact Radiation Oncology Diagnoses PAR Chance Lamas M.D. [facility] [address] [place] [address] Referral ID Status Reason Start Date Expiration Date Visits Requ ested Visits Authorized [id number] Closed 01/24/2019 01/24/2020 1 1 Encounter Details Date Type Department Care Team Description 01/25/2019 Hospital Encounter Department of Chance Lamas Malignant Neoplasm Bone (HCC) (Primary Dx); Radiation Oncology [place] Shepherd Secondary Malignant Neoplasm Soft Tissue (HCC); in [place] [address] [address] [facility] Malignant Neoplasm Of Lung Lower Lobe Or Bronchus Right (HCC) [place], [place] [address] [facility] [address] [place], [place] [phone] [address] (Work) [phone] Social History Tobacco Use Types Packs/Day Years [...] 3:28 PM CDT PATIENT NAME: Debora Valdes [facility] #: [id number] Address: [address] [place] [address] [place] [address] Age: 48 y.o. Date of Service: 01/25/19 Provider: Chance Lamas M.D. Place of Service: [facility] Radiation Oncology [address] [place] [address]. [place] [address] REQUESTING PROVIDER Chance Lamas M.D. REASON FOR [...] She was seen by Dr. Quintero at [facility], and changed ALK communication to ALK [...] received her first cycle of cisplatin plus HEPATOLOGY PHYSICIAN-16 from December 10 to December 17, her [...] completed on July 23, 2015 at the [facility]. She was seen in Medical Oncology by Dr. Gonzáles in [facility] on November 21, 2015 who discussed [...] 12, [address] Gomez in [place] for low back pain that has been [...] her significant other, Jagjit. REVIEW OF SYSTEMS SPEECH LANGUAGE ASSISTANT: She denies headache or focal motor or [...] lung cancer. SOCIAL HISTORY She works at [employer] in [place]. She smoked cigarettes for 20 years 1 [...] lobe lung mass #3 Concurrent cisplatin and HEPATOLOGY PHYSICIAN 16 chemotherapy and definitive radiation therapy completed [...] by: Chance Lamas M.D. 01/25/2019 3:28 PM [facility] [address] [place], [place] [address] FAX: [phone] * documented in this encounter Plan of [...] documented as of this encounter Care Teams Dinkey Engine Mechanic Relationship Specialty Start Date End Date Rachel Gomez M.D. PCP - General Family Medicine 12/04/18 1 07/04/18 documented as of this encounter
--- OUTSIDE RECORDS SUMMARY | 2022-04-20 07:09 | XMS_ITS | Encounter Summary ---
:1970 Author Organization [facility] Address [address] [place] [address] Care Team Providers Name Role Phone Rachel Gomez M.D. Primary Care Provider Unavailable Reason for Referral Outpatient (Routine) - Closed Specialty Diagnoses / Procedures Referred By Contact Refer red To Contact Radiation Oncology Diagnoses PAR Chance Lamas M.D. [address] [address] Referral ID Status Reason Start Date Expiration Date Visits Requ ested Visits Authorized [id number] Closed 01/24/2019 01/24/2020 1 1 Encounter Details Date Type Department Care Team Description 01/24/2019 Orders Only Department of Radiation Chance Lamas M.D. Oncology in [place] [id number] [place] [address] [place] [address] [phone] Social History Tobacco Use Types Packs/Day Years [...] 1 to 4 times per year 11/21 jewish services? Do you belong to any clubs or No 12/08/2018 organizations such as anabaptist groups, unions, fraShop Airlines or athletic groups, or school groups? How [...] documented as of this encounter Care Teams Director Of Cardiac Cath Lab Relationship Specialty Start Date End Date Rachel Gomez M.D. PCP - General Family Medicine 12/04/18 1 07/04/18 documented as of this encounter
--- OUTSIDE RECORDS SUMMARY | 2022-04-20 07:09 | XMS_ITS | Encounter Summary ---
:1970 Author Organization [facility] Address [address] [place] [address] Care Team Providers Name Role Phone Rachel Gomez M.D. Primary Care Provider Unavailable Reason for Referral Outpatient (Routine) - Closed Specialty Diagnoses / Procedures Referred By Contact Refer red To Contact Diagnoses Secondary Malignant Neoplasm Soft Tissue (HCC) Chance Lamas M.D. [facility] Procedures US Soft Tissue Biopsy [address] [place] [address] Referral ID Status Reason Start Date Expiration Date Visits Requ ested Visits Authorized [id number] Closed 01/25/2019 01/25/2020 1 1 Reason for Visit Auth/Cert Specialty Diagnoses / Procedures Referred By Contact Refer red To Contact Diagnoses Secondary Malignant Neoplasm Soft Tissue (HCC) Procedures US SOFT TISSUE BIOPSY Referral ID Status Reason Start Date Expiration Date Visits Requ ested Visits Authorized [id number] 1 1 Encounter Details Date Type Department Care Team Description 01/27/2019 Hospital Encounter Department of Chance Lamas Malignant RadiologyShaheed M.D. Neoplasm Soft Tissue Building, in [address] [facility] (HCC) [facility] [address] [address] [facility] [phone] [place], [place] (Work) [address] [phone] Social History Tobacco Use Types Packs/Day Years [...] 12/08/2018 organizations such as zoroastrian groups, unions, fraWhitevector or athletic groups, or school groups? How [...] left CDT arm mass are multiple pale qqk-luno-tihaleifhbq soft tissue cores and fragments, ranging from 0.2-2.3 cm in length. Specimens are submitted en toto in cassette A1. Grossed by [employer]. (A) Disclaimer This test was developed and its performance characteri [facility] 01/30/2019 determined by [facility] in a manner consistent with CLIA 10:44 [...] Organization Address City/State/ZIP Code Phon e Number [facility] - [address] [place], [place] [address] [facility] documented in this encounter Visit Diagnoses Diagnosis [...] Provider: Leona Red M.D.) Code/trauma/sedation medication, Starting on Wed01/27/19 at 1038 documented in this encounter Additional Health Concerns Assessment Noted Time PHQ-9 Depression Total Score: 13 01/17/2019 8:17 AM CD T documented as of this encounter Care Teams Receiver/Laborer Relationship Specialty Start Date End Date Rachel Gomez M.D. PCP - General Family Medicine 12/04/18 1 07/04/18 documented as of this encounter
--- OUTSIDE RECORDS SUMMARY | 2022-04-20 07:09 | XMS_ITS | Encounter Summary ---
:1970 Author Organization [facility] Address [address] [place] [address] Care Team Providers Name Role Phone Rachel Gomez M.D. Primary Care Provider Unavailable Encounter Details Date Type Department Care Team Description 12/27/2018 Hospital Encounter Department of Rachel Gomez Radicu lopathy Lumbar Radiology in [place], [place] [address], [place] [phone] Social History Tobacco Use Types Packs/Day Years [...] Fourth documented in this encounter Care Teams Customer Service Representative Teacher Relationship Specialty Start Date End Date Rachel Gomez M.D. PCP - General Family Medicine 12/04/18 1 07/04/18 documented as of this encounter
--- OUTSIDE RECORDS SUMMARY | 2022-04-20 07:09 | XMS_ITS | Encounter Summary ---
:1970 Author Organization [facility] Address [address] [place] [address] Care Team Providers Name Role Phone Rachel Gomez M.D. Primary Care Provider Unavailable Encounter Details Date Type Department Care Team Description 01/11/2019 Orders Only Department of Radiation Chance Lamas M.D. Oncology in [place], [address] [place] [address] [place] [address] [place] [address] [phone] Social History Tobacco Use Types Packs/Day Years [...] on filedocumented in this encounter Care Teams Brake Drum Lathe Operator Relationship Specialty Start Date End Date Rachel Gomez M.D. PCP - General Family Medicine 12/04/18 1 07/04/18 documented as of this encounter
--- OUTSIDE RECORDS SUMMARY | 2022-04-20 07:09 | XMS_ITS | Encounter Summary ---
:1970 [address] [facility] Address [address] [place] [address] Care Team Providers Name Role Phone Rachel Gomez M.D. Primary Care Provider Unavailable Reason for Visit Reason Onset Date Comments returning call 01/20/2019 Encounter Details Date Type Department Care Team Description 01/20/2019 Clinical Communication Department of Jairo Escudero returning call Mike Allison M.D. [facility], in [place], [place] [address], [place] [phone] Social History Tobacco Use Types Packs/Day Years [...] says she is returning a call to [facility]. Do not see a note [...] documented as of this encounter Care Teams Magnetic Tape Composer Operator Relationship Specialty Start Date End Date Rachel Gomez M.D. PCP - General Family Medicine 12/04/18 1 07/04/18 documented as of this encounter
--- OUTSIDE RECORDS SUMMARY | 2022-04-20 07:09 | XMS_ITS | Encounter Summary ---
:1970 Author Organization [facility] Address [address] [place] [address] Care Team Providers Name Role Phone Rachel Gomez M.D. Primary Care Provider Unavailable Encounter Details Date Type Department Care Team Description 01/09/2019 Orders Only [facility] PCP [facility] MNT Rachel Gomez, Screening Mammogram Mendy.Vanna Breast Cancer Social History Tobacco Use Types [...] Cancer documented in this encounter Care Teams Curtain Roller Assembler Relationship Specialty Start Date End Date Rachel Gomez M.D. PCP - General Family Medicine 12/04/18 1 07/04/18 documented as of this encounter
--- OUTSIDE RECORDS SUMMARY | 2022-04-20 07:09 | XMS_ITS | Encounter Summary ---
:1970 Author Organization [facility] Address [address] [place] [address] Care Team Providers Name Role Phone Rachel Gomez M.D. Primary Care Provider Unavailable Encounter Details Date Type Department Care Team Description 02/02/2019 Orders Only Department of Oncology Yasmine Taylor Ma lignant Neoplasm Of in [place] Lung Lower Lobe [place] [address] Bronchus (HCC) (Primary [address] [place], [place] Dx) [place] [phone] Social History Tobacco Use Types Packs/Day Years [...] documented as of this encounter Care Teams Plastic Straightening Roll Operator Relationship Specialty Start Date End Date Rachel Gomez M.D. PCP - General Family Medicine 12/04/18 1 07/04/18 documented as of this encounter
--- OUTSIDE RECORDS SUMMARY | 2022-04-20 07:09 | XMS_ITS | Encounter Summary ---
:1970 Author Organization [facility] Address [address] [place] [address] Care Team Providers Name Role Phone Rachel Gomez M.D. Primary Care Provider Unavailable Reason for Referral Specialty Diagnoses / Procedures Referred By Contact Refer red To Contact Chance Lamas M .D. [facility] Region [address] [place] [address] Referral ID Status Reason Start Date Expiration Date Visits Requ ested Visits Authorized Radiation Therapy (Routine) - Closed Specialty Diagnoses / Procedures Referred By Contact Refer red To Contact Diagnoses Secondary Malignant Neoplasm Bone (HCC) Chance Lamas M.D. [facility] Procedures Initial Rad Onc Treatment Planning CT Simulation [address] [place] [address] Referral ID Status Reason Start Date Expiration Date Visits Requ ested Visits Authorized [id number] Closed 01/27/2019 01/27/2020 3 3 Encounter Details Date Type Department Care Team Description 01/27/2019 Orders Only Department of Chance Lamas Secondar y Malignant Radiation Oncology in [place] Neoplasm Bone (HCC) [facility] [address] [facility] (Primary Dx) [address] [place] [address] [phone] Social History Tobacco Use Types Packs/Day Years [...] Name Type Priority Associated Diagnoses Order S [facility] Radiation Oncology Outpatient Referral Routine Secondary Kelli [...] City/State/ZIP Code Phon e Number NICOLE XIOMARAA DAPHNE MAIKEL na documented in this encounter Visit Diagnoses Diagnosis Secondary Malignant Neoplasm Bone (HCC) - Primary Secondary Malignant Neoplasm Bone (HCC) documented in this encounter Additional Health Concerns Assessment Noted Time PHQ-9 Depression Total Score: 13 01/17/2019 8:17 AM CD T documented as of this encounter Care Teams Soup Mixer Relationship Specialty Start Date End Date Rachel Gomez M.D. PCP - General Family Medicine 12/04/18 1 07/04/18 documented as of this encounter
--- OUTSIDE RECORDS SUMMARY | 2022-04-20 07:09 | XMS_ITS | Encounter Summary ---
:1970 Author Organization [facility] Address [address] [place] [address] Care Team Providers Name Role Phone Rachel Gomez M.D. Primary Care Provider Unavailable Reason for Visit Reason Comments Sore Throat started with a cold on 9 and now has a sore throat since 12/01 and a little bit of a cough and dr gonzalez Encounter Details Date Type Department Care Team Description 12/04/2018 Office Visit Urgent Care in [place] Ramon Pharyng[place]ry [place], [place] Manjula Naranjo-Dariusz, P.A. (Primary Dx) [address] [place] [phone] Social History Tobacco Use Types Packs/Day Years [...] 1 to 4 times per year 11/21 evangelical services? Do you belong to any clubs [...] with your health care provider. ? 2014 [facility] Education and Research ([facility]). All rights reserved. [id number] documented in this encounter Progress Notes Jose [...] Point of Care (12/04/2018 8:50 AM CDT) P athologist Signature Strep Group A, Negative Negative 12/04/2018 PCR, POCT 8:50 AM CDT Specimen Anatomical Collection Method Collection Time Receive d Time (Source) Location / / Volume Laterality Varies 12/04/2018 8:50 AM 9 8:58 CDT AM CDT Generic Rals LAB POCT ORDERABLES - DEVICE Performing Organization Address City/[facility]/ZIP Code Phon e Number [facility] [address] [place] [id number] LAB Strep Group A, PCR, Point of [...] POCT ORDERABLES - DEVICE Performing Organization Address City/[facility]/ZIP Code Phon e Number [facility] [address] [place] [address] LAB documented in this encounter Visit Diagnoses Diagnosis Pharyngitis Acute - Primary documented in this encounter Care Teams Rda Relationship Specialty Start Date End Date Rachel Gomez M.D. PCP - General Family Medicine 12/04/18 1 07/04/18 documented as of this encounter
--- OUTSIDE RECORDS SUMMARY | 2022-04-20 07:09 | XMS_ITS | Encounter Summary ---
:1970 Author Organization [facility] Address [address] [place] [address] Care Team Providers Name Role Phone Rachel Gomez M.D. Primary Care Provider Unavailable Encounter Details Date Type Department Care Team Description 01/16/2019 Clinical Communication Department of Jairo Escudero, MedicineMike M.D. [facility], in [place], [place] [address] [place] [phone] Social History Tobacco Use Types Packs/Day Years [...] for Communication: Patient returning call to the [address] [place] [address] nurse. Current Can Nursing/Provider leave a detailed message: Did the patient refuse triage through Nurse line? (for symptom based concerns): Action Needed: phone call Name of Medication (if relevant): Telephone Encounter - Tianna Carreon - 01/16/2019 10:05 AM CDT Patient called in, returning call from [facility] nurse. Unable to get a hold of nurse. Could not find documentation of call. Please call patient back. documented in this encounter Plan of Treatment Not on filedocumented as of this encounter Visit Diagnoses Not on filedocumented in this encounter Care Teams Precision Honing Machine Operator Relationship Specialty Start Date End Date Rachel Gomez M.D. PCP - General Family Medicine 12/04/18 1 07/04/18 documented as of this encounter
--- OUTSIDE RECORDS SUMMARY | 2022-04-20 07:09 | XMS_ITS | Encounter Summary ---
:1970 Author Organization [facility] Address [address] [place] [address] Care Team Providers Name Role Phone Janna Foreman M.D. Primary Care Provider Unavailable Reason for Visit Reason Comments Back Pain f/u Appointment Request (Routine) - Closed Specialty Diagnoses / Procedures Referred By Contact Refer red To Contact Family Medicine Referral ID Status Reason Start Date Expiration Date Visits Requ ested Visits Authorized [id number] Closed 12/19/2018 12/19/2019 1 Encounter Details Date Type Department Care Team Description 12/27/2018 Office Visit Department of Janna Escudero Ra diculopathy Lumbar Fourth (Primary Dx); Medicine, Mike hardin; Clinic, in [facility] Neoplasm Of Lung Lower Lobe Or Bronchus (HCC); [place] Malignant Neoplasm Of Lung ( HCC) [address] [place] [phone] Social History Tobacco Use Types Packs/Day Years [...] or relatives? How often do you attend lutheran or 1 to 4 times per year 11/21 scientologist services? Do you belong to any clubs or No 12/08/2018 organizations such as lutheran groups, unions, fraPinBridge or athletic groups, or school groups? How [...] Janna Foreman M.D. IMG DIAGNOSTIC IMAGING PROCE DURDARI documented in this encounter Visit Diagnoses Diagnosis Radiculopathy Lumbar Fourth - Primary Mass Vertebra Malignant Neoplasm Of Lower Lobe, Bronch us Or Lung Laterality Unknown (HCC) Malignant Neoplasm Of Unspecified Part O f Lung Laterality Unknown (HCC) Radiculopathy Lumbar Fourth documented in this encounter Care Teams Per Assessment Nurse Relationship Specialty Start Date End Date Janna Foreman M.D. PCP - General Family Medicine 12/04/18 1 07/04/18 documented as of this encounter
--- OUTSIDE RECORDS SUMMARY | 2022-04-20 07:09 | XMS_ITS | Encounter Summary ---
:1970 Author Organization [facility] Address [address] [place] [address] Care Team Providers Name Role Phone Rachel Gomez M.D. Primary Care Provider Unavailable Reason for Referral Outpatient (Routine) - Closed Specialty Diagnoses / Procedures Referred By Contact Refer red To Contact Diagnoses Secondary Malignant Neoplasm Of Lung Laterality Unknown (HCC) Sarai Nazario P.A.-C., [facility] Region Procedures PET CT Skull to Thigh FDG MT PET/CT TRUNK M.S. [address] [place], [place] [phone] Referral ID Status Reason Start Date Expiration Date Visits Requ ested Visits Authorized [id number] Closed 01/24/2019 02/23/2019 6 6 Reason for Visit Outpatient (Routine) - Closed Specialty Diagnoses / Procedures Referred By Contact Refer red To Contact Diagnoses Secondary Malignant Neoplasm Of Lung Laterality Unknown (HCC) Sarai Nazario P.A.-C., [facility] Region Procedures PET CT Skull to Thigh FDG MT PET/CT TRUNK M.S. [address] [place], [place] [address] Referral ID Status Reason Start Date Expiration Date Visits Requ ested Visits Authorized [id number] Closed 01/24/2019 02/23/2019 6 6 Encounter Details Date Type Department Care Team Description 01/24/2019 Hospital Encounter Department of Sarai Yoon Seconda ry Malignant Radiology, John Mcdonnell P.A.-C. Neoplasm Lung (HCC) Clinic, in [place], [address] [place] [address] [address] [phone] [place] [phone] [place], [place] (Work) [phone] Social History Tobacco Use [...] or the highest technical, or vocational p [employer] degree you have received? Sex Assigned at [...] RADIOPHARMACEUTICAL/MEDS: Route: intravenous fludeoxyglucose F 18 injection LONG-TERM (FDG F-18),12.7 millicurie Procedure Note Donald Jesus [...] RADIOPHARMACEUTICAL/MEDS: Route: intravenous fludeoxyglucose F 18 injection LONG-TERM (FDG F-18),12.7 millicurie IMPRESSION: 1. L4 vertebral [...] Given 01/24/2019 12.7 millicuries Right Antecubital injection LONG-TERM (FDG 7:25 AM CDT F-18) 12.7 millicurie, intravenous, Once, On Wed01/24/19 at 0900, For 1 dose documented in this encounter Additional Health Concerns Assessment Noted Time PHQ-9 Depression Total Score: 13 01/17/2019 8:17 AM CD T documented as of this encounter Care Teams Automatic Folder Seamer Relationship Specialty Start Date End Date Rachel Gomez M.D. PCP - General Family Medicine 12/04/18 1 07/04/18 documented as of this encounter
--- OUTSIDE RECORDS SUMMARY | 2022-04-20 07:09 | XMS_ITS | Encounter Summary ---
:1970 Author Organization [facility] Address [address] [place] [address] Care Team Providers Name Role Phone Rachel Gomez M.D. Primary Care Provider Unavailable Reason for Referral Radiation Therapy (Routine) - Closed Specialty Diagnoses / Procedures Referred By Contact Refer red To Contact Diagnoses Secondary Malignant Neoplasm Bone (HCC) Chance Lamas M.D. [facility] Procedures Initial Rad Onc Treatment Planning CT Simulation [address] [place] [address] Referral ID Status Reason Start Date Expiration Date Visits Requ ested Visits Authorized [id number] Closed 01/27/2019 01/27/2020 3 3 Reason for Visit Radiation Therapy (Routine) - Closed Specialty Diagnoses / Procedures Referred By Contact Refer red To Contact Diagnoses Secondary Malignant Neoplasm Bone (HCC) Chance Lamas M.D. [facility] Procedures Initial Rad Onc Treatment Planning CT Simulation [address] [place] [address] Referral ID Status Reason Start Date Expiration Date Visits Requ ested Visits Authorized [id number] Closed 01/27/2019 01/27/2020 3 3 Encounter Details Date Type Department Care Team Description 02/01/2019 Hospital Encounter Department of Chance Lamas Malignant Radiation Oncology [place] Neoplasm Bone (HCC) in [place], [address] [facility] [place] [address] [facility] [address] [place], [place] [phone] (Work) [phone] Social History Tobacco Use Types Packs/Day Years [...] or the highest technical, or vocational p [facility] degree you have received? Sex Assigned at [...] documented as of this encounter Procedure Notes McKone, Chance K, M.D. - 02/01/2019 11:59 AM CDTAssociated Order(s): [...] planning. CT images were transferred to the MEDSEEK planning system, isocenter was determined and marked [...] RADIATION ONCOLOGY ORDERABLE S Performing Organization Address City/State/[facility] Code Phon e Number [facility] documented in this encounter Visit Diagnoses Diagnosis Secondary Malignant Neoplasm Bone (HCC) documented in this encounter Additional Health Concerns Assessment Noted Time PHQ-9 Depression Total Score: 13 01/17/2019 8:17 AM CD T documented as of this encounter Care Teams Image Assembler Relationship Specialty Start Date End Date Rachel Gomez M.D. PCP - General Family Medicine 12/04/18 1 07/04/18 documented as of this encounter
--- OUTSIDE RECORDS SUMMARY | 2022-04-20 07:09 | XMS_ITS | Encounter Summary ---
:1970 Author Organization [facility] Address [address] [place] [address] Care Team Providers Name Role Phone Rachel Gomez M.D. Primary Care Provider Unavailable Encounter Details Date Type Department Care Team Description 01/19/2019 Orders Only Department of Oncology in [place] [facility].[place]. [place] [address] [place] [phone] (Wo rk) Social History Tobacco Use Types [...] documented as of this encounter Care Teams Manager Wound Care Relationship Specialty Start Date End Date Rachel Gomez M.D. PCP - General Family Medicine 12/04/18 1 07/04/18 documented as of this encounter
--- OUTSIDE RECORDS SUMMARY | 2022-04-20 07:09 | XMS_ITS | Encounter Summary ---
:1970 Author Organization [facility] Address [address] [place] [address] Care Team Providers Name Role Phone Rachel Gomez M.D. Primary Care Provider Unavailable Reason for Visit Radiation Therapy (Routine) - Closed Specialty Diagnoses / Procedures Referred By Contact Refer red To Contact Diagnoses Secondary Malignant Neoplasm Bone (HCC) Chance Lamas M.D. [facility] Procedures Prior Auth Rad Tx MI RADTN TX DEL >=1 MEV COMPLEX [address] [place] [address] Referral ID Status Reason Start Date Expiration Date Visits Requ ested Visits Authorized [id number] Closed 01/24/2019 01/24/2020 5 5 Encounter Details Date Type Department Care Team Description 02/02/2019 Hospital Encounter Department of Radiation Gracia Lamas, Oncology [place] [address] [place] [id number] [place] [address] [place], [place] [phone] (Wo rk) [address] [phone] Social History Tobacco Use Types Packs/Day Years [...] documented as of this encounter Care Teams Front Worker Relationship Specialty Start Date End Date Rachel Gomez M.D. PCP - General Family Medicine 12/04/18 1 07/04/18 documented as of this encounter
--- OUTSIDE RECORDS SUMMARY | 2022-04-20 07:09 | XMS_ITS | Encounter Summary ---
:1970 Author Organization [facility] Address [address] [place] [address] Care Team Providers Name Role Phone Rachel Gomez M.D. Primary Care Provider Unavailable Reason for Visit Reason Comments Back Pain Leg Pain Appointment Request (Routine) - Closed Specialty Diagnoses / Procedures Referred By Contact Refer red To Contact Family Medicine Referral ID Status Reason Start Date Expiration Date Visits Requ ested Visits Authorized [id number] Closed 01/09/2019 01/09/2020 1 1 Encounter Details Date Type Department Care Team Description 01/17/2019 Office Visit Department of Rachel Escudero Ma ss Vertebra (Primary Medicine, Mike Ascencio Dx) Clinic, in [place], [place] [address] [place] [address] Social History Tobacco Use Types [...] is wondering about something else for pain. Vbej-yfi-[id number] meds are just not helping and she [...] documented as of this encounter Care Teams Assistant Professor In Family Studies Relationship Specialty Start Date End Date Rachel Gomez M.D. PCP - General Family Medicine 12/04/18 1 07/04/18 documented as of this encounter
--- OUTSIDE RECORDS SUMMARY | 2022-04-20 07:09 | XMS_ITS | Encounter Summary ---
:1970 Author Organization [facility] Address [address] [place] [address] Care Team Providers Name Role Phone Rachel Gomez M.D. Primary Care Provider Unavailable Reason for Visit MRI/CAT/PET Scan (Routine) - New Request Specialty Diagnoses / Procedures Referred By Contact Refer red To Contact Radiology Diagnoses Pain Low Back Unspecified Rachel Gomez M.D. [facility] Region Procedures MR Lumbar Spine without and with IV Contrast MR Lumbar Spine without IV Contrast SD MRI LUMB SPINE WO CNTRST SD MRI LUMB SPINE WO/W CNTRST [address] [place] [phone] Referral ID Status Reason Start Date Expiration Date Visits V isits Requested Authorized [id number] New Request 01/11/2019 01/11/2019 1 1 Encounter Details Date Type Department Care Team Description 01/11/2019 Hospital Encounter Department of Rachel Gomez Pai n Low Back Radiology in [place] [address] [place] [phone] Social History Tobacco Use Types Packs/Day [...] assume perhaps we would send you to [place] for that, but would need to have [...] RST LOS, Neuroradiology N/A Magnetic Resonance ARZ LOS, Neuroradiology FLA [facility] Specimen (Source) Anatomical Collection Method Collection Time [...] dose documented in this encounter Care Teams Director Of Medical Review Relationship Specialty Start Date End Date Rachel Gomez M.D. PCP - General Family Medicine 12/04/18 1 07/04/18 documented as of this encounter
--- OUTSIDE RECORDS SUMMARY | 2022-04-20 07:09 | XMS_ITS | Encounter Summary ---
:1970 Author Organization [facility] Address [address] [place] [address] Care Team Providers Name Role Rachel Viera M.D. Primary Care Provider Unavailable Reason for Visit Reason Comments URI seen in [facility] 12/03/2018 Back Pain Appointment Request (Routine) - Closed Specialty Diagnoses / Procedures Referred By Contact Refer red To Contact Family Medicine Referral ID Status Reason Start Date Expiration Date Visits Requ ested Visits Authorized [id number] Closed 12/02/2018 12/02/2019 1 1 Encounter Details Date Type Department Care Team Description 12/12/2018 Office Visit Department of Rachel Escudero Sc iatica Left (Primary Dx); Mike Allison M.D. Rhinitis Allergic Clinic, in [place], [place] [address] [place] [phone] Social History Tobacco Use Types Packs/Day Years [...] into the leg, let us know. Try mkwo-ggc-twommew antihistamine for allergies for the next week or 10 days, then as needed. documented in this encounter Progress Notes Rachel Gomez M.D. - 12/12/2018 8:15 AM CDT CHIEF COMPLAINT / REASON FOR VISIT Debora Valdes is a 48 y.o. female who presents for evaluation of URI (seen in [facility] 12/03/2018) and Back Pain. HISTORY OF PRESENT [...] MRI. #2 Rhinitis Allergic Symptomatic care with gfxc-uep-mutfcsq antihistamine. Follow up if high fever or [...] Allergic documented in this encounter Care Teams Esthetician And Manager Medical Spa Relationship Specialty Start Date End Date Rachel Gomez M.D. PCP - General Family Medicine 12/04/18 1 07/04/18 documented as of this encounter
--- OUTSIDE RECORDS SUMMARY | 2022-04-20 07:10 | XMS_ITS | Encounter Summary ---
:1970 Author Organization [facility] Address [address] [place] [address] Care Team Providers Name Role Phone Unavailable [...]
--- OUTSIDE RECORDS SUMMARY | 2022-04-20 07:10 | XMS_ITS | Encounter Summary ---
:1970 Author Organization [facility] Address [address] [place] [address] Care Team Providers Name Role Phone Unavailable Primary Care Provider Unavailable Encounter Details Date Type Department Care Team Description 05/01/2005 Hospital Encounter HX [facility]OC PRA Ruslan [...] 1 to 4 times per year 11/21 jehovah's witness services? Do you belong to any clubs [...]
--- OUTSIDE RECORDS SUMMARY | 2022-04-20 07:10 | XMS_ITS | Encounter Summary ---
:[address] [facility] Address [address] [place] [address] Care Team Providers Name Role Phone Unavailable [...] or relatives? How often do you attend jew or 1 to 4 times per year 11/21 islam services? Do you belong to any clubs or No 12/08/2018 organizations such as jew groups, unions, fraternal or athletic groups, or [...]
--- OUTSIDE RECORDS SUMMARY | 2022-04-20 07:10 | XMS_ITS | Encounter Summary ---
:1970 Author Organization [facility] Address [address] [place] [address] Care Team Providers Name Role Phone Unavailable [...] 1 to 4 times per year 11/21 episcopal services? Do you belong to any clubs [...] 10:37:41 CDT From: JANNA FOREMAN MD To: Cristina Nurse; Sent: 09/10/2014 10:37:41 CDT Subject: RE: Rx request anti-anxiety meds/PET scan Okay. Rx printed. She should not drive after taking this. Addendum by JANNA FOREMAN MD on 10 September 2014 10:37:17 CDT Submitted: Order:LORazepam (LORazepam 0.5 mg oral tablet) 1 tab(s) PO 3xDay Qty: 20 tab(s) Refills: 0 Substitutions Allowed PRN Anxiety Print - [id number] Signed by JANNA FOREMAN MD Addendum by JEZ IGLESIAS CMA on 10 September 2014 09:19:12 CDT From: JEZ IGLESIAS CMA ([facility] Nurse) To: JANNA FOREMAN MD; Sent: 09/10/2014 09:19:12 CDT Subject: FW: Rx request anti-anxiety meds/PET scan please advise Addendum by GÓMEZ ALTMAN SRN on 10 September 2014 09:08:54 CDT From: GÓMEZ ALTMAN SRN ([facility]) To: Cristina Nurse; Sent: 09/10/2014 09:08:54 CDT Subject: Rx request anti-anxiety meds/PET scan S. I have a PET scan in [place] tomorrow and I am feelig very anxious can I get an Rx for somrthing? B. Patient states she has a PET scan in [place] and is having alot of anxiety about this. States symptoms: anxiety, panic attacks, trouble thinking rationally, heart racing. A. Request for follow up. Patient is requesting an rx for anxiety. R. Please review and advise patient. [phone] or [phone] Vito FBO From: IVANIA MAI ([address] Account Resolution Analyst) To: JONO CASTAÑEDAmetallurgical analyst Med [facility]; Sent: 09/10/2014 08:42:19 CDT Subject: *Phone Message Caller is: (x ) Patient ( ) Mother ( ) Father ( ) Spouse ( ) Daughter ( ) Son ( ) Pharmacy ( ) Other: Physician: cristina Patient MRN #: Reason for Call: Message: s patient calling to speak to nurse b patient calling to give an update from her visit at [facility] last night a r call her back at [phone] or [phone] Advice/Action: Source used: ( ) Verbalizes understanding [...] back cell phone number ( ) Source: [facility] [employer] POWERCHART Document Id: [id number] Miscellaneous - Janna Foreman M.D. - 09/06/2014 3:12 PM CDT Addendum by JEZ IGLESIAS CMA on 06 September 2014 16:30:57 CDT From: JEZ IGLESIAS CMA ([facility] Nurse) To: JANNA FOREMAN MD; Sent: 09/06/2014 16:30:57 CDT Subject: FW: Addendum by JEZ IGLESIAS CMA on 06 September 2014 16:30:36 CDT Appointment is tomorrow at 8 am with insurance follow up specialist she has been informed and she also knows that she needs to be fasting [facility] thanks From: JANNA FOREMAN MD To: OW Cristina Nurse; Sent: 09/06/2014 15:12:04 CDT Jez, I called Debora this afternoon about her lung mass. Order was placed gor urgent conslut with [facility]. Can you help move that along? Thanks. Source: [facility] POWERCHART Document Id: [id number] Electronically signed by Conversion, [facility] Machine Clothing Man [id number] at 10/18/2016 2:45 PM CDT documented in [...]
--- OUTSIDE RECORDS SUMMARY | 2022-04-20 07:10 | XMS_ITS | Encounter Summary ---
:1970 Author Organization [facility] Address [address] [place] [address] Care Team Providers Name Role Phone Unavailable Primary Care Provider Unavailable Encounter Details Date Type Department Care Team Description 03/30/2013 Hospital Encounter HX [facility] Rachel Young M.D. Social History Tobacco Use Types Packs/Day [...] 4:07 PM Re sults for this BILATERAL REFERRAL AGENT procedure are i n the results section. documented in this encounter Results BI Breast Screening Bilateral (03/30/2013 4:07 PM REFERRAL AGENT) Anatomical Region Laterality Modality Breast Bilateral Mammography Specimen (Source) Anatomical Collection Method Collection Time Re ceived Time Location / / Volume Laterality 03/30/2013 4:07 PM REFERRAL AGENT Impressions 03/31/2013 10:19 AM REFERRAL AGENT Recommendations: ??I recommend a follow-up mammogram in [...] mammogram im ages. Narrative 03/31/2013 10:19 AM REFERRAL AGENT EXAM: MA Mammo Screening w/ CADD INDICATION: [...]
--- OUTSIDE RECORDS SUMMARY | 2022-04-20 07:10 | XMS_ITS | Encounter Summary ---
:1970 Author Organization [facility] Address [address] [place] [address] Care Team Providers Name Role Phone Unavailable [...] 1 to 4 times per year 11/21 episcopalian services? Do you belong to any clubs [...]
--- OUTSIDE RECORDS SUMMARY | 2022-04-20 07:10 | XMS_ITS | Encounter Summary ---
:1970 Author Organization [facility] Address [address] [place] [address] Care Team Providers Name Role Phone Unavailable Primary Care Provider Unavailable Encounter Details Date Type Department Care Team Description 03/30/2013 Hospital Encounter HX [facility] PRA Ruslan Foreman M.D. Social History Tobacco Use [...] Comments Blood Pressure 114/84 03/30/2013 2:55 PM PIT SUPERVISOR Pulse 80 03/30/2013 2:55 PM PIT SUPERVISOR Temperature - - Respiratory Rate 16 03/30/2013 2:55 PM PIT SUPERVISOR Oxygen Saturation - - Inhaled Oxygen Concentration - - Weight 87.5 kg (192 lb 14.4 oz) 03/30/2013 2:55 PM PIT SUPERVISOR Height 166.5 cm (5' 5.55) 03/30/2013 2:55 PM PIT SUPERVISOR Body Mass Index 31.56 03/30/2013 2:55 PM PIT SUPERVISOR documented in this encounter Medications at Time of Discharge Medication Sig Dispensed Refills Start Date End Date levonorgestrel (MIRENA) by intrauterine route. 0 01/26/2007 20 mcg/24 hours (5 yrs) 52 mg IUD documented as of this encounter H&P Notes Janna Foreman M.D. - 03/30/2013 2:45 PM CST [id number] CHIEF COMPLAINT/REASON FOR VISIT Preventive healthcare exam and a few questions. HISTORY OF PRESENT ILLNESS Iebmk-aib-izoo-old presents for a physical, which she has [...] 2 daughters, and herself. She works at [employer] and is doing well. HABITS: Alcohol very [...] gave her about Essure and schedule with DIRECTOR OF QUALITY CONTROL to consider. She wants to wait to get her IUD out until that time as well. Follow up if further concerns in the interim. Janna Foreman M.D./krystle Electronically Signed By: JANNA FOREMAN MD On: 04/06/2013 09:42 AM Source: [facility] MHSDOLBEYNDOROTHYSYS Document Id: [id number] SUPERVISOR documented in this encounter Miscellaneous Notes Miscellaneous - Janna Foreman M.D. - 04/05/2013 7:21 AM CST Normal Results Letter 05 April 2013 DEBORA RUBY [id number] [place] [id number] Dear DEBORA RUBY, I am pleased to report that your results from the following diagnostic test(s) are normal. (Pap) Please follow up with us as we discussed during your visit or sooner if you have any concerns. If you have questions or concerns, please do not hesitate to call our office. Result Name Current Result SEROLOGIST Cytology 03/30/2013 Sincerely, JANNA FOREMAN [address] [place] [id number] Electronic Signature Electronically Signed By: JANNA FOREMAN MD On: 05 April 2013 This document has images extracted. Source: [facility] American Board of Addiction Medicine (ABAM) Document Id: [id number] Miscellaneous - Janna Foreman M.D. - 03/30/2013 3:32 PM CST Ambulatory Patient Summary [facility] [address] [place] [id number] Visit Information Name: DEBORA RUBY [facility] Number: [id number] Current Date: 03/30/2013 15:32:35 Physicians [...] 03/30/2013 16:15 [facility] Mammo mammo [facility] [place] Room 1 Attention: Contact your local Clinic if further appointment detail needed. Your Goals/Additional instructions: Source: [facility] Cloud TakeoffCHART Document Id: [id number] SUPERVISOR Miscellaneous - Janna Foreman M.D. - 03/30/2013 3:32 PM CST Ambulatory Depart Summary [facility] [address] [place] [address] Visit Information Name: DEBORA RUBY [facility] Number: [id number] Visit Date: 03/30/2013 15:32:35 Attending [...] your provider for clarification. Additional Information: Source: [facility] American Board of Addiction Medicine (ABAM) Document Id: [id number] SUPERVISOR Miscellaneous - Conversion, Historical Provider Ser - 03/30/2013 2:55 PM PIT SUPERVISOR Adult Pedicurist Intake/History Adult Pedicurist Intake/History Entered On: 03/30/2013 14:57 PIT SUPERVISOR Performed On: 03/30/2013 14:55 PIT SUPERVISOR by SURJIT BILL Intake Chief Complaint : [...] 31.56 kg/m2 FLY SURJIT - 03/30/2013 14:55 PIT SUPERVISOR General Info Information Given By : Patient Preferred Communication Mode : Verbal Languages : Barbadian SURJIT BILL - 03/30/2013 14:55 PIT SUPERVISOR Subjective Pain Symptoms : No SURJIT BILL - 03/30/2013 14:55 PIT SUPERVISOR Dependent Habits Tobacco Use/Currently Using : Yes Exposure to Tobacco Smoke : Patient smokes Smoking Status : Current every day smoker SURJIT BILL - 03/30/2013 14:55 PIT SUPERVISOR Tobacco Use Grid Cigarette Use Packs/Day : 0.5 SURJIT BILL - 03/30/2013 14:55 PIT SUPERVISOR Caffeine Use Grid Caffeine Use : Current Type : Coffee Frequency : Daily FLY SURJIT - 03/30/2013 14:55 PIT SUPERVISOR Source[facility] POWERCHART Document Id: [id number] PIT SUPERVISOR!36 documented in this encounter Plan of Treatment Not on filedocumented as of this encounter Procedures Procedure Name Priority Date/Time Associated Diagnosis Comme nts PATHOLOGY SEROLOGIST Routine 03/30/2013 12:00 AM Results for this CYTOLOGY PIT SUPERVISOR procedure are i n the results section. documented in this encounter Results Pathology SEROLOGIST Cytology (03/30/2013 12:00 AM PIT SUPERVISOR) Specimen (Source) Anatomical Location Collection Method / Collectio n Time Received Time / Laterality Volume 03/30/2013 Narrative [facility] LAB - 04/04/2013 1:28 PM PIT SUPERVISOR [facility] in [address], [address] [place], [place] ??[address] Patient Name: DEBORA RUBY Patient ID #: [id number] Collected: 03/30/2013 Address: [facility]/State[place]Zip: [address], [place] ??[id number] Received: Reported: 03/31/2013 04/04/2013 Soc. Sec. #: ?/Age/Sex 1970 (Age: 42) ??F Physician(s): NJ FOREMAN MD Copy To: ? [facility] ?? [id number] [facility], ??[place] ??[address] CYTOPATHOLOGY SEROLOGIST REPORT FINAL CYTOLOGIC DIAGNOSIS Pap Smear, Vagina [...]
--- OUTSIDE RECORDS SUMMARY | 2022-04-20 07:10 | XMS_ITS | Encounter Summary ---
:1970 Author Organization [facility] Address [address] [place] [address] Care Team Providers Name Role Phone Unavailable Primary Care Provider Unavailable Encounter Details Date Type Department Care Team Description 11/13/2005 Hospital Encounter HX [facility] FAMILYPRA Pedro Wright M.D. [address] [place] [address] (Wo rk) Social History Tobacco [...]
--- OUTSIDE RECORDS SUMMARY | 2022-04-20 07:10 | XMS_ITS | Encounter Summary ---
:1970 Author Organization [facility] Address [address] [place] [address] Care Team Providers Name Role Phone Unavailable Primary Care Provider Unavailable Encounter Details Date Type Department Care Team Description 04/30/2005 Hospital Encounter HX [facility] URGENTCAR Jorge Blmu W, P.A. [address] [place] [address] (Wo rk) Social History Tobacco Use Types [...]
--- OUTSIDE RECORDS SUMMARY | 2022-04-20 07:10 | XMS_ITS | Encounter Summary ---
:1970 Author Organization [facility] Address [address] [place] [address] Care Team Providers Name Role Phone Unavailable Primary Care Provider Unavailable Encounter Details Date Type Department Care Team Description 10/13/2004 Hospital Encounter HX [facility] PRA Ruslan [...]
--- OUTSIDE RECORDS SUMMARY | 2022-04-20 07:10 | XMS_ITS | Encounter Summary ---
:1970 Author Organization [facility] Address [address] [place] [address] Care Team Providers Name Role Phone Rachel Gomez M.D. Primary Care Provider Unavailable Encounter Details Date Type Department Care Team Description 03/23/2017 Orders Only Department of [facility] Rachel Gomez [facility] MedicineIraisHallieford M.D. Diabetes Mellitus Clinic, in [place], [place] [address] [place] [address] Social History Tobacco Use Types [...] Mellitus documented in this encounter Care Teams Transportation Modeler Relationship Specialty Start Date End Date Rachel Gomez M.D. PCP - General 11/05/16 documented as of this encounter
--- OUTSIDE RECORDS SUMMARY | 2022-04-20 07:10 | XMS_ITS | Encounter Summary ---
:1970 Author Organization [facility] Address [address] [place] [address] Care Team Providers Name Role Phone Rachel Gomez M.D. Primary Care Provider Unavailable Encounter Details Date Type Department Care Team Description 03/04/2018 Orders Only Department of [facility] Rachel Gomez Ca rdiac Vascular Disease Screening (Primary Dx); MedicineMike M.D. Screening Examination Diabetes Mellitus; Clinic, in [facility] Mammogram Average Risk Patient [place] [address] [place] [address] Social History Tobacco Use Types [...] Patient documented in this encounter Care Teams Technician Biological Health Relationship Specialty Start Date End Date Rachel Gomez M.D. PCP - General 11/05/16 documented as of this encounter
--- OUTSIDE RECORDS SUMMARY | 2022-04-20 07:10 | XMS_ITS | Encounter Summary ---
:1970 Author Organization [facility] Address [address] [place] [address] Care Team Providers Name Role Phone Unavailable [...]
--- OUTSIDE RECORDS SUMMARY | 2022-04-20 07:10 | XMS_ITS | Encounter Summary ---
:1970 Author Organization [facility] Address [address] [place] [address] Care Team Providers Name Role Phone Unavailable [...] MD To: SONNY RUBY Sent: 04/13/2013 12:51:33 GAS FURNACE INSTALLER Subject: General Message Sonny , Your lab results are normal!! Janna Foreman MD Results: Date Result Name Value Ref Range 04/12/2013 07:14 Glucose Fasting 98 mg/dL (70 - 99) 04/12/2013 07:14 Hgb A1c 5.2 % (4.0 - 6.0) Source: [facility] POWERCHART Document Id: [id number] documented in this encounter Plan of Treatment Not on filedocumented as of this encounter Procedures Procedure Name Priority Date/Time Associated Comments Diagnosis HEMOGLOBIN A1C, B Routine 04/12/2013 7:14 AM Resu lts for this GAS FURNACE INSTALLER procedure are i n the results section. GLUCOSE, FASTING, Routine 04/12/2013 7:14 AM Resu lts for this S/P GAS FURNACE INSTALLER procedure are i n the results section. documented in this encounter Results Glucose, Fasting (04/12/2013 7:14 AM GAS FURNACE INSTALLER) P athologist Signature Glucose, 98 70 - 99 POWERCHART Fasting, S MGDL Specimen (Source) Anatomical Collection Method Collection Time Re ceived Time Location / / Volume Laterality Blood 04/12/2013 7:14 AM GAS FURNACE INSTALLER Janna Foreman M.D. LAB BLOOD NON ADD-ON Performing Organization Address City/State/[facility] Code Phon e Number POWERCHART Hemoglobin A1c (04/12/2013 7:14 AM GAS FURNACE INSTALLER) P athologist Signature Hemoglobin A1c, 5.2 4.0 - 6.0 POWERCHART B Specimen (Source) Anatomical Collection Method Collection Time Re ceived Time Location / / Volume Laterality Blood 04/12/2013 7:14 AM GAS FURNACE INSTALLER Janna Foreman M.D. LAB BLOOD ADD-ON Performing Organization Address City/State/ZIP Code Phon e Number POWERCHART documented in this encounter Visit Diagnoses Not on filedocumented in this encounter
--- OUTSIDE RECORDS SUMMARY | 2022-04-20 07:10 | XMS_ITS | Encounter Summary ---
:1970 Author Organization [facility] Address [address] [place] [address] Care Team Providers Name Role Phone Unavailable Primary Care Provider Unavailable Encounter Details Date Type Department Care Team Description 09/04/2014 Hospital Encounter HX [facility] PRA Ruslan [...] Lung OV Est Pt Level 3 - 40295 - 15 min; 09/04/14 17:36:00 CDT, Dx: Mass Lung Orders: 1. CT Chest w/ contrast,09/05/14 0:00:00 CDT, right lung mass, Yes, No, Routine, Walk, Send to scheduling?, * Next Available, Current Location, 09/05/14 0:00:00 CDT, Mass Lung, [facility] End of Orders Electronically Signed By: JANNA FOREMAN MD On: 09/04/2014 05:49 PM Source: [employer] Document Id: [id number] documented in this encounter Miscellaneous Notes Telephone Encounter - Sonia Erazo - 09/11/2014 8:31 AM CDT Outside Referral [facility] Entered by SONIA ALAS on 11 September 2014 08:31:43 CDT Referral submitted by OSRP. The following patient has a Consult to Outside Specialist [place]: order placed. Patient Name: DEBORA RUBY Diagnosis: Swelling, Mass, or Lump in Chest,, Mass, or Lump in Chest, Ordering Provider: JANNA FOREMAN MD ; Original Order DT/TM: September 06, 2014 15:08:39 CDT ; Order: Consult to Outside Specialist [place] ; Order Details: Referral For: Adult Department: Pulmonology Reason For Visit: 3.2 call cm lung mass - ??large liver met? Why Needs cannot be met : NOT FOUND Why Needs cannot be met - FH : NOT FOUND Why Needs cannot be met NICOLE : Service not available at [facility] Facility : [facility] FH : NOT FOUND Appointment Type: Consult Appointment Type - FH: NOT FOUND Subspecialty Requested: NOT FOUND Appointment Timeline: Urgent (less than 3 days) Schedule with Specific Provider, If Known: NOT FOUND Appointment has been/will be made by: My [employer] Worker/Office If yes, When is appointment: NOT FOUND Arc to Process Referral : NOT FOUND Special Instructions: NOT FOUND Reason to be Sent: NOT FOUND Mass Lung Source: [facility] MicroEdge Document Id: [id number] Miscellaneous - Jez Iglesias, C.M.A. - 09/05/2014 8:47 AM CDT *General Message From: JEZ IGLESIAS CMA ([facility] Nurse) To: JANNA FOREMAN MD; Sent: 09/05/2014 08:47:53 CDT Subject: *General Message Debora's CT is at 10:30 on 09/05/14 thanks Source: [facility] MicroEdge Document Id: [id number] Miscellaneous - Jennifer Gentile, L.P.N. - 09/04/2014 [...] One Kidney : No : No Previous OK : No Other (document in Comments) : No JENNIFER GENTILE - 09/04/2014 17:17 CDT Previous Films : No JENNIFER GENTILE - 09/04/2014 17:17 CDT [facility] Document Id: [id number] CDT!28 Miscellaneous - Janna Foreman M.D. - 09/04/2014 5:14 PM CDT Ambulatory Patient Summary [facility] [address] [place] [phone] Visit Information Name: DEBORA RUBY [facility] Number: [id number] Current Date: 09/04/2014 17:14:38 Physicians [...] appointment detail needed. Your Goals/Additional instructions: Source: [facility] POWERCHART Document Id: [id number] Miscellaneous - Janna Foreman M.D. - 09/04/2014 5:14 PM CDT Ambulatory Discharge Medication List [facility] [address] [place] [phone] Visit Information Name: DEBORA RUBY [facility] Number: [id number] Visit Date: 09/04/2014 17:14:37 Attending [...] MD Signed On:04-SEP-2014 17:14:33 Additional Information: Source: [facility] POWERCHART Document Id: [id number] Miscellaneous - Jez Iglesias C.MKoby - 09/04/2014 4:32 PM CDT Adult Mud Grinder Intake/History Adult Mud Grinder Intake/History Entered On: 09/04/2014 16:35 CDT Performed [...] Preferred Communication Mode : Verbal Languages : [place]inean Is Patient Female and 13-50 no hysterectomy : Yes Status : Patient denies Are you ? : No JEZ IGLESIAS [facility] - 09/04/2014 16:32 CDT Subjective Pain Symptoms : No JEZ IGLESIAS [facility] - 09/04/2014 16:32 CDT Dependent Habits Tobacco Use/Currently Using : Yes Exposure to Tobacco Smoke : Patient smokes Smoking Status : Current every day smoker JEZ IGLESIAS [facility] - 09/04/2014 16:32 CDT Tobacco Use Grid Cigarette Use Packs/Day : 0.5 JEZ IGLESIAS [facility] - 09/04/2014 16:32 CDT Alcohol Use : No JEZ IGLESIAS [facility] - 09/04/2014 16:32 CDT Caffeine Use Grid Caffeine Use : Current Type : Coffee Frequency : Daily JEZ IGLESIAS [facility] - 09/04/2014 16:32 CDT ID Screen Drug Resistant Organism : No Travel Within Last 21 Days : No Contact with someone with Ebola : No JEZ IGLESIAS [facility] - 09/04/2014 16:32 CDT [facility] Document Id: [id number] CDT!43 Miscellaneous - Jez Iglesias, C.M.AEvette - 09/04/2014 4:32 PM CDT Health Assessment Health Assessment Entered On: 09/04/2014 16:36 CDT Performed On: 09/04/2014 16:32 CDT by JEZ IGLESIAS [facility] Health Assessment Complete Health Assessment Complete or Modified : Annual Health Assessment Annual Health Assessment Completed : Yes JEZ IGLESIAS [facility] - 09/04/2014 16:32 CDT Nutrition Nutrition Risk Factors by History Adult : None JEZ IGLESIAS [facility] - 09/04/2014 16:32 CDT Functional Current Daily Living Assistance : None JEZ IGLESIAS [facility] - 09/04/2014 16:32 CDT Dependent Habits Tobacco Use/Currently Using : Yes Exposure to Tobacco Smoke : Patient smokes Smoking Status : Current every day smoker JEZ IGLESIAS [facility] - 09/04/2014 16:32 CDT Tobacco Use Grid Cigarette Use Packs/Day : 0.5 JEZ IGLESIAS [facility] - 09/04/2014 16:32 CDT Caffeine Use Grid Caffeine Use : Current Type : Coffee Frequency : Daily JEZ IGLESIAS [facility] - 09/04/2014 16:32 CDT Psychosocial Domestic Abuse Concerns : None Behavioral Health Screen/Safety Assmt : No Evangelical Preference : No qualifying data available. JEZ IGLESIAS [facility] - 09/04/2014 16:32 CDT Advance Directive Advanced Directives : No Advance Directive Additional Information : No HARRISJEZ [facility] - 09/04/2014 16:32 CDT Educ Needs Learning Style Preference Adult Grid Patient : Demonstration Family : None [facility] 09/04/2014 16:32 CDT [facility] Document Id: [id number] CDT!31 documented in this encounter Plan of [...] POWERCHART MGDL HXeGFR (MDRD) >60 >=60 POWERCHART [id number] eGFR >60 >=60 POWERCHART Black/ [id number] Mexican Specimen (Source) Anatomical Collection Method Collection Time Re ceived Time Location / / Volume Laterality Blood 09/04/2014 5:24 PM CDT Janna Foreman M.D. LAB BLOOD ADD-ON Performing Organization Address City/State/ZIP Code Phon e Number POWERCHART documented in this encounter Visit Diagnoses Not on filedocumented in this encounter
--- OUTSIDE RECORDS SUMMARY | 2022-04-20 07:10 | XMS_ITS | Encounter Summary ---
:1970 Author Organization [facility] Address [address] [place] [address] Care Team Providers Name Role Phone Unavailable Primary Care Provider Unavailable Encounter Details Date Type Department Care Team Description 08/05/2015 Hospital Encounter [facility] Sisi Fields M.D. [address] [place] [address] (Wo rk) Social History Tobacco [...] or relatives? How often do you attend voodoo or 1 to 4 times per year 11/21 buddhism services? Do you belong to any clubs or No 12/08/2018 organizations such as voodoo groups, unions, fraternal or athletic groups, or [...] Fields M.D. - 08/05/2015 12:43 PM CDT [id number] CHIEF COMPLAINT/REASON FOR VISIT A 44-year-old female [...] FIELDS MD On: 08/07/2015 08:25 AM Source: [facility] MHSDOLBEYNONRADSYS Document Id: [id number] documented in this encounter Miscellaneous Notes Miscellaneous [...] visit with us more convenient. Please call [phone] to schedule services that are past due or that may shortly become due (thank you if you have already done so). We will follow up in six months should you have more services to schedule at that time. If you have already received any of the listed past due or upcoming services outside of [facility], please call [phone] to add them to your medical record. You may want to consider contacting your health insurance company to make sure these services are covered and find out if there will be any mfk-cy-wbtuoo expense. If you have any questions about the services listed above, or if you are no longer receiving care from [facility], please contact us at [phone]. Thank you for partnering to provide you with the best care possible. Thank you for choosing us, Janna Foreman M.D. and the [place] [facility], for your health care needs! Source: [facility] POWERCHART Document Id: [id number] BODY TECHNICIAN Miscellaneous - Arik Fields M.D. - 08/05/2015 1:37 PM CDT Ambulatory Discharge Medication List [facility] [place] [address] [place] [id number] Visit Information Name: DEBORA RUBY [facility] Number: [id number] Visit Date: 08/05/2015 13:37:38 Attending [...] MD Signed On:05-AUG-2015 13:37:36 Additional Information: Source: [facility] POWERCHART Document Id: [id number] MiscellArik Connelly M.D. - 08/05/2015 1:37 PM CDT Ambulatory Patient Summary [facility] [place] [address] [place], [place] [id number] Visit Information Name: DEBORA RUBY [facility] Number: [id number] Current Date: 08/05/2015 13:37:38 Physicians Attending Provider: UNKNOWN1, PROVIDER Primary Care Provider: JANNA FOREMAN MD DEBORA RUBY COLTON has been given the following list of [...] if you dont have one. Go to [email or web address] and click on Create Your Account. Then, follow the directions to complete the online form. Youll be asked for your [facility] number which you can find at the top of this document. Your Goals/Additional instructions: Source: [facility] POWERCHART Document Id: [id number] Miscellaneous - Jaime Hurt L.P.N. - 08/05/2015 1:29 PM CDT Adult Adjuster And Inspector Intake/History Adult Adjuster And Inspector Intake/History Entered On: 08/05/2015 13:33 CDT Performed [...] Preferred Communication Mode : Verbal Languages : Kyrgyz Is Patient Female and 13-50 no hysterectomy : Yes Status : Patient denies Are you ? : No JAIME HURT LPN - 08/05/2015 13:29 CDT Subjective Pain Symptoms : Yes JAIME HURT LPN - 08/05/2015 13:29 CDT Pain Scale Pain Scale Verbal 0-10 : Open JAIME HURT LPN - 08/05/2015 13:29 CDT Pain Pain Assessment Grid Pain 1 Location : Foot Laterality : Right JAIME HURT LPN - 08/05/2015 13:29 CDT Dependent Habits Smoking Status [...] Coffee Frequency : Daily JAIME HURT LPN 08/05/2015 13:29 CDT Source: [facility] [employer] Document Id: [id number] CDT!47 documented in this encounter Plan of Treatment Not on filedocumented as of this encounter Visit Diagnoses Not on filedocumented in this encounter
--- OUTSIDE RECORDS SUMMARY | 2022-04-20 07:10 | XMS_ITS | Encounter Summary ---
:1970 Author Organization [facility] Address [address] [place] [address] Care Team Providers Name Role Phone Unavailable Primary Care Provider Unavailable Encounter Details Date Type Department Care Team Description 11/08/2004 Hospital Encounter [facility]X [facility] Jorge Blum W, P.A. [address] [place] [address] (Wo rk) Social History Tobacco [...] 12/08/2018 organizations such as anglican groups, unions, fraternal or athletic groups, or [...]
--- OUTSIDE RECORDS SUMMARY | 2022-04-20 07:10 | XMS_ITS | Encounter Summary ---
:1970 Author Organization [facility] Address [address] [place] [address] Care Team Providers Name Role Phone Rachel Gomez M.D. Primary Care Provider Unavailable Encounter Details Date Type Department Care Team Description 09/01/2017 Orders Only Department of Family Rachel Gomez Sc reening Examination Diabetes Mellitus; Medicine, Mike Ascencio Screening Mammogram Average Risk Patient Clinic, in [place], [place] [address] [place] [address] Social History Tobacco Use Types [...] Patient documented in this encounter Care Teams Clicking Machine Operator Relationship Specialty Start Date End Date Rachel Gomez M.D. PCP - General 11/05/16 documented as of this encounter
--- OUTSIDE RECORDS SUMMARY | 2022-04-20 07:10 | XMS_ITS | Encounter Summary ---
:1970 Author Organization [facility] Address [address] [place] [address] Care Team Providers Name Role Phone Unavailable Primary Care Provider Unavailable Encounter Details Date Type Department Care Team Description 07/29/2004 Hospital Encounter HX [facility] Ruslan [...]
--- OUTSIDE RECORDS SUMMARY | 2022-04-20 07:10 | XMS_ITS | Encounter Summary ---
:1970 Author Organization [facility] Address [address] [place] [address] Care Team Providers Name Role Phone Unavailable [...] TORIE PETER on 02 May 2013 13:15:43 EMT I/85 Note was sent on 04/12 to pt in portal. Addendum by TROIE PETER on 07 April 2013 10:21:09 EMT I/85 Patient updated. Will hold this until we get the results. Addendum by ELYSE LEAVITT I on 07 April 2013 09:42:26 EMT I/85 RETURN CALL [phone] Addendum by TORIE PETER on 07 April 2013 09:27:14 EMT I/85 Left message to call back Addendum by IVANIA MAI on 07 April 2013 09:01:40 EMT I/85 patient called back please calll her at [phone] Addendum by TORIE PETER on 06 April 2013 16:59:49 EMT I/85 Left message to call back. From: JANNA FOREMAN MD To: Patricia Nurse; Sent: 04/05/2013 07:10:58 EMT I/85 Show up: 04/05/2013 07:10:00 EMT I/85 Subject: Results Notification Glucose is too high [...] - 4.40) 04/04/2013 07:24 LDL/HDL 4 Source: [facility] POWERCHART Document Id: [id number] Electronically signed by Conversion, [facility] Solar Power Installer [id number] at 10/21/2016 12:45 AM CDT documented in this encounter Plan of Treatment Not on filedocumented as of this encounter Procedures Procedure Name Priority Date/Time Associated Diagnosis Comme nts LIPID PANEL, S Routine 04/04/2013 7:24 AM Results for this EMT I/85 procedure are i n the results section. GLUCOSE, FASTING, Routine 04/04/2013 7:24 AM Resu lts for this S/P EMT I/85 procedure are i n the results section. documented in this encounter Results (ABNORMAL) Lipid Panel (04/04/2013 7:24 AM EMT I/85) Patholo gist Method Time Signature Calculated LDL [...] / Volume Laterality Blood 04/04/2013 7:24 AM EMT I/85 Janna Foreman M.D. LAB BLOOD ADD-ON Performing Organization Address City/State/ZIP Code Phon e Number POWERCHART (ABNORMAL) Glucose, Fasting (04/04/2013 7:24 AM EMT I/85) P athologist Signature Glucose, 126 (H) 70 - 99 POWERCHART Fasting, S MGDL Specimen (Source) Anatomical Collection Method Collection Time Re ceived Time Location / / Volume Laterality Blood 04/04/2013 7:24 AM EMT I/85 Janna Foreman M.D. LAB BLOOD NON ADD-ON Performing Organization Address City/State/ZIP Code Phon e Number POWERCHART documented in this encounter Visit Diagnoses Not on filedocumented in this encounter
--- OUTSIDE RECORDS SUMMARY | 2022-04-20 07:10 | XMS_ITS | Encounter Summary ---
:1970 Author Organization [facility] Address [address] [place] [address] Care Team Providers Name Role Phone Unavailable Primary Care Provider Unavailable Encounter Details Date Type Department Care Team Description 10/25/2006 Hospital Encounter [facility]X [facility] Emily Warren M.D. [address] [place] [address] (Wo rk) Social History Tobacco [...]
--- OUTSIDE RECORDS SUMMARY | 2022-04-20 07:10 | XMS_ITS | Encounter Summary ---
:1970 Author Organization [facility] Address [address] [place] [address] Care Team Providers Name Role Phone Unavailable [...]
--- OUTSIDE RECORDS SUMMARY | 2022-04-20 07:10 | XMS_ITS | Encounter Summary ---
:1970 Author Organization [facility] Address [address] [place] [address] Care Team Providers Name Role Phone Unavailable Primary Care Provider Unavailable Encounter Details Date Type Department Care Team Description 12/30/2006 Hospital Encounter HX [facility] PR[facility] Ruslan [...] or relatives? How often do you attend congregation or 1 to 4 times per year 11/21 shinto services? Do you belong to any clubs or No 12/08/2018 organizations such as congregation groups, unions, fraternal or athletic groups, or [...]
--- OUTSIDE RECORDS SUMMARY | 2022-04-20 07:10 | XMS_ITS | Encounter Summary ---
:1970 Author Organization [facility] Address [address] [place] [address] Care Team Providers Name Role Phone Unavailable Primary Care Provider Unavailable Encounter Details Date Type Department Care Team Description 09/07/2012 Hospital Encounter HX [facility] Grandia, Kota Brooke, P.A.-C. [address] [place], [place] [address] (Wo rk) Social History Tobacco Use Types [...] or relatives? How often do you attend roman catholic or 1 to 4 times per year 11/21 jehovah's witness services? Do you belong to any clubs or No 12/08/2018 organizations such as roman catholic groups, unions, fraternal or athletic groups, or [...] P.A.-C., P.A. - 09/07/2012 9:59 AM CDT [id number] CHIEF COMPLAINT/REASON FOR VISIT Right eyelid puffy [...] as she has an upcoming trip to [place]. She denies any visual changes or blurring. [...] MAT BARKER On: 09/09/2012 01:04 PM Source: [facility] MHSDOLBEYNONRADSYS Document Id: [id number] documented in this encounter Miscellaneous Notes Miscellaneous - Rachel Hitchcock L.P.N. - 09/07/2012 10:10 AM CDT Health Assessment [...] Daily Living Assistance : None RACHEL HITCHCOCK 09/07/2012 10:10 CDT Dependent Habits Tobacco Use/Currently Using : Yes Smoking Status : Current every day smoker RACHEL HITCHCOCK - 09/07/2012 10:10 CDT Tobacco Use Grid Cigarette Use Packs/Day : 0.5 RACHEL HITCHCOCK 09/07/2012 10:10 CDT Caffeine Use Grid Caffeine Use : Current Type : Coffee Frequency : Daily RACHEL HITCHCOCK - 09/07/2012 10:10 CDT Psychosocial Domestic Abuse Concerns : None RACHEL HITCHCOCK - 09/07/2012 10:10 CDT Advance Directive Advanced Directives : No RACHEL HITCHCOCK 09/07/2012 10:10 CDT Educ Needs Learning Style Preference Adult Grid Patient : Verbal explanation Family : None HITCHCOCK RACHEL Plummer - 09/07/2012 10:10 CDT Source: [employer] Document Id: [id number] CDT!27 Miscellaneous - Rachel Hitchcock L.PBeni - 09/07/2012 10:06 AM CDT Adult Bailiff Intake/History Adult Bailiff Intake/History Entered On: 09/07/2012 10:10 CDT Performed [...] Preferred Communication Mode : Verbal Languages : Pashto JAZZ HITCHCOCKGREGORY Plummer - 09/07/2012 10:06 CDT Subjective Pain Symptoms : No HITCHCOCKRACHEL HAND 09/07/2012 10:06 CDT Dependent Habits Tobacco Use/Currently Using : Yes Smoking Status : Current every day smoker RACHEL HITCHCOCK - 09/07/2012 10:06 CDT Tobacco Use Grid Cigarette Use Packs/Day : 0.5 RACHEL HITCHCOCK - 09/07/2012 10:06 CDT Caffeine Use Grid Caffeine Use : Current Type : Coffee Frequency : Daily RACHEL HITCHCOCK - 09/07/2012 10:06 CDT Source: [employer] Document Id: [id number] CDT!31 documented in this encounter Plan of Treatment Not on filedocumented as of this encounter Visit Diagnoses Not on filedocumented in this encounter
--- OUTSIDE RECORDS SUMMARY | 2022-04-20 07:10 | XMS_ITS | Encounter Summary ---
:1970 Author Organization [facility] Address [address] [place] [address] Care Team Providers Name Role Phone Unavailable [...] ??[phone] 15-Mar-2015 13: 26 ?Jazmyn Rodriguez MD [phone] 15-Mar-2015 13:26 Narrative 03/15/2015 1:26 PM CDT [...] atelectasis. Electronically signed by: Aguila Lara MD. [id number] 15-Mar-2015 13:26 Jazmyn Rodriguez MD [phone] 15-Mar-2015 13:26 Yasmine Franco APRN, C.N.P., M.S. [...] AM 5 9:23 CDT AM CDT Narrative [facility] - 03/11/2015 9:23 AM CDT ??03/11/2015 Surgical Pathology ?([id number]) ??REVISED REPORT (Addendum/Procedure in cluded) ?? Requested By: Cora Wren M.D. ??[phone] ? SLIDE DISPOSITION: ? DIAGNOSIS: ?? [...] 03/12/2015 08:07 Interpreted by: Tanner Leyva M.D. [id number] Report electronically signed by Tanner Leyva M.D. [...] is identified. ??Research tissue procured for IRB #[id number]. ??Aerial Lineman se ctions submitted. ??Grossed by TW. ?? I. ??Received fresh labeled station 4 [...] ? Procedure Note 08/14/2017 03/11/2015 Surgical Pathology ([id number]) REVISED REPORT (Addendum/Procedure incl uded) Requested By: Cora Wren M.D. [phone] SLIDE DISPOSITION: DIAGNOSIS: A. Lymph node, right [...] 03/12/2015 08:07 Interpreted by: Tanner Leyva M.D. [id number] Report electronically signed by Tanner Leyva M.D. [...] is identified. Research tissue procured for IRB #[id number]. Aerial Lineman sect ions submitted. Grossed by TW. I. [...] Organization Address City/State/ZIP Code Phon e Number [facility] - [address] documented in this encounter Visit Diagnoses Not on filedocumented in this encounter
--- OUTSIDE RECORDS SUMMARY | 2022-04-20 07:10 | XMS_ITS | Encounter Summary ---
:1970 Author Organization [facility] Address [address] [place] [address] Care Team Providers Name Role Phone Unavailable [...] 1 to 4 times per year 11/21 anabaptist services? Do you belong to any clubs [...]
--- OUTSIDE RECORDS SUMMARY | 2022-04-20 07:10 | XMS_ITS | Encounter Summary ---
:1970 Author Organization [facility] Address [address] [place] [address] Care Team Providers Name Role Phone Unavailable Primary Care Provider Unavailable Encounter Details Date Type Department Care Team Description 08/31/2014 Hospital Encounter HX [facility] Fran Bermudez, P.AEvette -C. [address] [place] [address] (Wo rk) Social History Tobacco [...] Fran Bermudez - 08/31/2014 5:43 PM CDT [id number] CHIEF COMPLAINT/REASON FOR VISIT Midback pain/tingling. HISTORY [...] Bermudez P.A.-C/radha Electronically Signed By: FRAN BERMUDEZ V PAC On: 09/02/2014 04:44 PM Source: [facility] MHSDOLBEYNONRADSYS Document Id: [id number] documented in this encounter Miscellaneous Notes Telephone [...] patient called back please call her at [phone] Addendum by JEZ IGLESIAS CMA on 03 September 2014 09:24:11 CDT From: JEZ IGLESIAS CMA ([facility] Nurse) To: JANNA FOREMAN MD; Sent: [...] message to call back From: IVANIA MAI ([address] Acetone Button Paster) To: JONO [facility] Nurse; Sent: 09/03/2014 08:23:53 CDT Subject: [...] result a r call her back at [phone] Advice/Action: Source used: ( ) Verbalizes understanding [...] back cell phone number ( ) Source: [facility] POWERCHART Document Id: [id number] Miscellaneous - Fran Bermudez - 09/02/2014 1:08 PM CDT Results Notification Document Contains Addenda Addendum by ZANE SCOTT on 02 September 2014 13:52:51 CDT Patient notified From: FRAN BERMUDEZ V PAC To: JONO Same Day Nurse; Sent: 09/02/2014 13:08:00 CDT ! Show up: 09/02/2014 13:08:00 CDT Subject: Results Notification Actions: Notify patient of results Reminder Comments: possible right lower lung mass, recommend CT this week; called pt left request to call back Results: Date Result Type Result Name 09/02/2014 12:31 Radiology XR Chest 2 Views Source: [facility] POWERCHART Document Id: [id number] Miscellaneous - Fran Bermudez - 09/01/2014 1:43 PM CDT Ambulatory Patient Summary [facility] [address] [place], [place] [phone] Visit Information Name: DEBORA RUBY [facility] Number: [id number] Current Date: 09/01/2014 13:43:34 Physicians Attending Provider: FRAN BERMUDEZ V PAC Primary Care Provider: JANNA FOREMAN MD DEBORA [...] directed x 5 day(s) New Routed to [address] buPROPion (buPROPion 75 mg oral tablet immediate release) 0.5 Tablet(s), Oral, once a day Routed to [address] [address] ibuprofen (Advil 200 mg oral [...] appointment detail needed. Your Goals/Additional instructions: Source: [facility] POWERCHART Document Id: [id number] Miscellaneous - Fran Bermudez - 09/01/2014 1:43 PM CDT Ambulatory Discharge Medication List [address] [id number] Visit Information Name: DEBORA RUBY [facility] Number: [id number] Visit Date: 09/01/2014 13:43:33 Attending Provider: FRAN BERMUDEZ Primary Care Provider: JANNA FOREMAN MD DEBORA RBUY has been given the following list of [...] directed x 5 day(s) [place] [address] buPROPion (buPROPion 75 mg oral tablet immediate release) 0.5 Tablet(s), Oral, once a day Routed to [address] [address] ibuprofen (Advil 200 mg oral tablet) Oral, [...] PAC Signed On:01-SEP-2014 13:43:29 Additional Information: Source: [facility] POWERCHART Document Id: [id number] Miscellaneous - Kevin Liang, R.N. - 08/31/2014 6:20 PM CDT Adult Inspector Outside Production Intake/History Adult Inspector Outside Production Intake/History Entered On: 08/31/2014 18:23 CDT Performed [...] Information Given By : Patient Languages : Citizen Of [place] Is Patient Female and 13-50 no hysterectomy : Yes Status : Patient denies Are you ? : No KEVIN LIANG Cristel - 08/31/2014 18:20 CDT Subjective Pain Symptoms [...] Smoking Status : Current every day smoker KEVIN LIANG Cristel - 08/31/2014 18:20 CDT Tobacco Use Grid Cigarette Use Packs/Day : 0.5 AZUL, KEVIN Fam - 08/31/2014 18:20 CDT Caffeine Use Grid Caffeine Use : Current Type : Coffee Frequency : Daily DEVAN LIANGGARRISON Fam - 08/31/2014 18:20 CDT ID Screen Travel Within Last 21 Days : No Contact with someone with Ebola : No AZUL KEVIN Fam - 08/31/2014 18:20 CDT Source: [employer] Document Id: [id number] CDT!50 documented in this encounter Plan of [...] 09/02/2014 12:26 PM. Resul ts sent by [facility] to Dr. Fran Bermudez at 09/02/2014 12 [...] 09/02/2014 12:26 PM. Resul ts sent by [facility] to Dr. Fran Bermudez at 09/02/2014 12 :28 PM. Ambar Bosch(R), R.T.(MR) IMG DIAGNOSTIC IMAGI NG PROCEDURES documented in this encounter Visit Diagnoses Not on filedocumented in this encounter
--- OUTSIDE RECORDS SUMMARY | 2022-04-20 07:10 | XMS_ITS | Encounter Summary ---
:1970 Author Organization [facility] Address [address] [place] [address] Care Team Providers Name Role Phone Unavailable Primary Care Provider Unavailable Encounter Details Date Type Department Care Team Description 11/14/2004 Hospital Encounter HX [facility] PR[facility] Ruslan [...]
--- OUTSIDE RECORDS SUMMARY | 2022-04-20 07:10 | XMS_ITS | Encounter Summary ---
:1970 Author Organization [facility] Address [address] [place] [address] Care Team Providers Name Role Phone Unavailable Primary Care Provider Unavailable Encounter Details Date Type Department Care Team Description 12/25/2009 Hospital Encounter [facility]X [facility] PR[facility] Ruslan [...] Foreman M.D. - 12/25/2009 12:00 AM CDT [id number] CHIEF COMPLAINT / REASON FOR VISIT Concerns [...] FOREMAN MD On 12/27/2009 03:16 PM Source: [facility] MHSDOLBEYNONRADSYS Document Id: [id number] documented in this encounter Miscellaneous Notes Miscellaneous - Kathy Brown, L.P.N. - 12/25/2009 8:26 AM CDT Adult Space Studies Faculty Member Intake/History Adult Space Studies Faculty Member Intake/History Entered On: 12/25/2009 8:28 CDT Performed [...] BLANC; Reviewed Date: 09/19/2009 19:05 CDT Source: [employer] Document Id: [id number] CDT!16 documented in this encounter Plan of Treatment Not on filedocumented as of this encounter Visit Diagnoses Not on filedocumented in this encounter
--- OUTSIDE RECORDS SUMMARY | 2022-04-20 07:10 | XMS_ITS | Encounter Summary ---
:1970 Author Organization [facility] Address [address] [place] [address] Care Team Providers Name Role Phone Unavailable [...]
--- OUTSIDE RECORDS SUMMARY | 2022-04-20 07:10 | XMS_ITS | Encounter Summary ---
:1970 Author Organization [facility] Address [address] [place] [address] Care Team Providers Name Role Phone Unavailable Primary Care Provider Unavailable Encounter Details Date Type Department Care Team Description 09/19/2009 Hospital Encounter HX [facility] Luis Watkins, MeeAEvette [address] [place] [address] (Wo rk) Social History Tobacco Use Types [...] Watkins P.A. - 09/19/2009 12:00 AM CDT [id number] CHIEF COMPLAINT / REASON FOR VISIT Abdominal [...] By:LUIS MARTIN On 09/25/2009 07:46 AM Source: [facility] MHSDOLBEYNONRADSYS Document Id: [id number] documented in this encounter Miscellaneous Notes Miscellaneous - Conversion, Historical Provider Ser - 09/19/2009 7:06 PM CDT Adult Art Objects Repairer Intake/History Adult Art Objects Repairer Intake/History Entered On: 09/19/2009 19:09 CDT Performed [...] Pain 1 Location: Abdomen Intensity: 6 TC BALNC - 09/19/2009 19:06 CDT Dependent Habits Tobacco Use/Currently Using: Yes TC BLANC - 09/19/2009 19:06 CDT Allergies Allergies (Active) NKA Estimated Onset Date: Unspecified ; Created By: TC BLANC; Reaction Status: Active ; Category: Drug ; Substance: NKA ; Type: Allergy ; Updated By: TC BLANC; Reviewed Date: 09/19/2009 19:05 CDT [facility] Document Id: [id number] documented in this encounter Plan of Treatment Not on filedocumented as of this encounter Procedures Procedure Name Priority Date/Time Associated Comments Diagnosis ZZPATHOLOGY NON-SHIP/REC/DOC CONTROL Routine 12/30/2006 12:00 Resu lts for this CYTOLOGY AM CDT procedure are i n the results section. ZZPATHOLOGY NON-SHIP/REC/DOC CONTROL Routine 11/13/2005 12:00 Resu lts for this CYTOLOGY AM CDT procedure are i n the results section. ZZPATHOLOGY NON-SHIP/REC/DOC CONTROL Routine 09/18/2004 12:00 Resu lts for this CYTOLOGY AM CDT procedure are i n the results section. documented in this encounter Results ZZPATHOLOGY NON-SHIP/REC/DOC CONTROL CYTOLOGY (12/30/2006 12:00 AM CDT) Specimen (Source) Anatomical Location Collection Method / Collectio n Time Received Time / Laterality Volume 12/30/2006 Narrative [facility] - 10/09/19 11 1:11 PM CDT PATIENT IMAGES Choose the Image button to view related documents. Historical Provider LAB PATHOLOGY/CYTOLOGY ORDER MASHA Performing Organization Address City/State/ZIP Code Phon e Number [facility] ZZPATHOLOGY NON-SHIP/REC/DOC CONTROL CYTOLOGY (11/13/2005 12:00 AM CDT) Specimen (Source) Anatomical Location Collection Method / Collectio n Time Received Time / Laterality Volume 11/13/2005 Narrative [facility] - 10/09/19 11 1:11 PM CDT PATIENT IMAGES Choose the Image button to view related documents. Historical Provider LAB PATHOLOGY/CYTOLOGY ORDER MASHA Performing Organization Address City/State/ZIP Code Phon e Number [facility] ZZPATHOLOGY NON-SHIP/REC/DOC CONTROL CYTOLOGY (09/18/2004 12:00 AM CDT) Specimen (Source) Anatomical Location Collection Method / Collectio n Time Received Time / Laterality Volume 09/18/2004 Narrative [facility] - 10/09/19 11 1:11 PM CDT PATIENT IMAGES Choose the Image button to view related documents. Historical Provider LAB PATHOLOGY/CYTOLOGY ORDER MASHA Performing Organization Address City/State/ZIP Code Phon e Number [facility] documented in this encounter Visit Diagnoses Not on filedocumented in this encounter
--- OUTSIDE RECORDS SUMMARY | 2022-04-20 07:10 | XMS_ITS | Encounter Summary ---
:1970 Author Organization [facility] Address [address] [place] [address] Care Team Providers Name Role Phone Unavailable [...]
--- OUTSIDE RECORDS SUMMARY | 2022-04-20 07:10 | XMS_ITS | Encounter Summary ---
:1970 Author Organization [facility] Address [address] [place] [address] Care Team Providers Name Role Phone Unavailable Primary Care Provider Unavailable Encounter Details Date Type Department Care Team Description 06/11/2005 Hospital Encounter HX [facility] PR[facility] Ruslan [...]
--- OUTSIDE RECORDS SUMMARY | 2022-04-20 07:10 | XMS_ITS | Encounter Summary ---
:1970 Author Organization [facility] Address [address] [place] [address] Care Team Providers Name Role Phone Unavailable Primary Care Provider Unavailable Encounter Details Date Type Department Care Team Description 03/11/2015 Hospital Encounter HX NO MAPPING Becka Lo, REvetteN. Social History Tobacco Use Types Packs/Day Years [...]
--- OUTSIDE RECORDS SUMMARY | 2022-04-20 07:11 | XMS_ITS | Encounter Summary ---
:1970 Author Organization [facility] Address [address] [place] [address] Care Team Providers Name Role Phone Unavailable Primary Care Provider Unavailable Encounter Details Date Type Department Care Team Description 06/12/2003 Hospital Encounter HX [facility] PR[facility] Ruslan [...] 12/08/2018 organizations such as yarsani groups, unions, fraternal or athletic groups, or [...]
--- OUTSIDE RECORDS SUMMARY | 2022-04-20 07:11 | XMS_ITS | Encounter Summary ---
:1970 Author Organization [facility] Address [address] [place] [address] Care Team Providers Name Role Phone Unavailable Primary Care Provider Unavailable Encounter Details Date Type Department Care Team Description 02/12/2004 Hospital Encounter HX [facility] PR[facility] Ruslan [...] or relatives? How often do you attend spiritism or 1 to 4 times per year 11/21 worship services? Do you belong to any clubs or No 12/08/2018 organizations such as spiritism groups, unions, fraternal or athletic groups, or [...]
--- OUTSIDE RECORDS SUMMARY | 2022-04-20 07:11 | XMS_ITS | Encounter Summary ---
:1970 Author Organization [facility] Address [address] [place] [address] Care Team Providers Name Role Phone Unavailable Primary Care Provider Unavailable Encounter Details Date Type Department Care Team Description 03/23/2001 Hospital Encounter HX [facility] Ruslan [...]
--- OUTSIDE RECORDS SUMMARY | 2022-04-20 07:11 | XMS_ITS | Encounter Summary ---
:1970 Author Organization [facility] Address [address] [place] [address] Care Team Providers Name Role Phone Unavailable Primary Care Provider Unavailable Encounter Details Date Type Department Care Team Description 04/23/2003 Hospital Encounter HX [facility] PR[facility] Ruslan [...] or relatives? How often do you attend sabianist or 1 to 4 times per year 11/21 orthodox services? Do you belong to any clubs or No 12/08/2018 organizations such as sabianist groups, unions, fraternal or athletic groups, or [...]
--- OUTSIDE RECORDS SUMMARY | 2022-04-20 07:11 | XMS_ITS | Encounter Summary ---
:[address] [facility] Address [address] [place] [address] Care Team Providers Name Role Phone Unavailable Primary Care Provider Unavailable Encounter Details Date Type Department Care Team Description 07/01/2000 Hospital Encounter HX [facility] Ruslan [...]
--- OUTSIDE RECORDS SUMMARY | 2022-04-20 07:11 | XMS_ITS | Encounter Summary ---
:1970 Author Organization [facility] Address [address] [place] [address] Care Team Providers Name Role Phone Unavailable Primary Care Provider Unavailable Encounter Details Date Type Department Care Team Description 12/19/2003 Hospital [facility] Aniket Peacock M.D. [address] [place] [address] (Wo rk) Social History Tobacco [...] 1 to 4 times per year 11/21 voodoo services? Do you belong to any clubs [...]
--- OUTSIDE RECORDS SUMMARY | 2022-04-20 07:11 | XMS_ITS | Encounter Summary ---
:1970 Author Organization [facility] Address [address] [place] [address] Care Team Providers Name Role Phone Unavailable Primary Care Provider Unavailable Encounter Details Date Type Department Care Team Description 01/21/2004 Hospital Encounter HX [facility] PR[facility] Ruslan [...]
--- OUTSIDE RECORDS SUMMARY | 2022-04-20 07:11 | XMS_ITS | Encounter Summary ---
:1970 Author Organization [facility] Address [address] [place] [address] Care Team Providers Name Role Phone Unavailable Primary Care Provider Unavailable Encounter Details Date Type Department Care Team Description 03/23/2003 Hospital Encounter HX [facility] PR[facility] Ruslan [...]
--- OUTSIDE RECORDS SUMMARY | 2022-04-20 07:11 | XMS_ITS | Encounter Summary ---
:1970 Author Organization [facility] Address [address] [place] [address] Care Team Providers Name Role Phone Unavailable Primary Care Provider Unavailable Encounter Details Date Type Department Care Team Description 05/28/2003 Hospital Encounter HX [facility] PR[facility] Ruslan [...]
--- OUTSIDE RECORDS SUMMARY | 2022-04-20 07:11 | XMS_ITS | Encounter Summary ---
:1970 Author Organization [facility] Address [address] [place] [address] Care Team Providers Name Role Phone Unavailable Primary Care Provider Unavailable Encounter Details Date Type Department Care Team Description 05/25/2003 Hospital Encounter HX [facility] Provider, Mi fatmata Social History Tobacco Use Types Packs/Day Years [...]
--- OUTSIDE RECORDS SUMMARY | 2022-04-20 07:11 | XMS_ITS | Encounter Summary ---
:1970 Author Organization [facility] Address [address] [place] [address] Care Team Providers Name Role Phone Unavailable Primary Care Provider Unavailable Encounter Details Date Type Department Care Team Description 05/23/2004 Hospital Encounter HX [facility] Jorge Blum W, P.A. [address] [place] [address] (Wo rk) Social History Tobacco [...] 1 to 4 times per year 11/21 gnosticism services? Do you belong to any clubs [...]
--- OUTSIDE RECORDS SUMMARY | 2022-04-20 07:11 | XMS_ITS | Encounter Summary ---
:1970 Author Organization [facility] Address [address] [place] [address] Care Team Providers Name Role Phone Unavailable Primary Care Provider Unavailable Encounter Details Date Type Department Care Team Description 03/09/2002 Hospital Encounter HX [facility] PR[facility] Ruslan [...]
--- OUTSIDE RECORDS SUMMARY | 2022-04-20 07:11 | XMS_ITS | Encounter Summary ---
:1970 Author Organization [facility] Address [address] [place] [address] Care Team Providers Name Role Phone Unavailable Primary Care Provider Unavailable Encounter Details Date Type Department Care Team Description 06/05/2003 Hospital Encounter HX [facility] PR[facility] Ruslan [...] or relatives? How often do you attend muslim or 1 to 4 times per year 11/21 congregation services? Do you belong to any clubs or No 12/08/2018 organizations such as muslim groups, unions, fraternal or athletic groups, or [...]
--- OUTSIDE RECORDS SUMMARY | 2022-04-20 07:12 | XMS_ITS | Clinical Summary ---
:1970 Author Organization [facility] [place] [address] Care Team Providers Name Role Phone Rachel Gomez MD Primary Care Provider [phone] Allergies No known active allergies Medications Not on file Active Problems Problem Noted Date Non-small cell lung cancer Social History Tobacco Use Types Packs/Day Years Used Date Never Assessed Sex Assigned at Date Recorded Not on file Plan of Treatment Health Maintenance Due Date Last Done Comments COVID-19 vaccine series (#1) 04/01/1972 Tdap 09/29/1982 Depression screening for age 12+ 1983 HIV for age 15-65 09/29/1986 BMI (ht and wt on same day) [...] Type Group [id number] 2018-Present [address] [address] [place] [address] Care Teams Composition Siding Worker Relationship Specialty Start Date End Date Rachel Gomez MD PCP - General Family Practice 09/05/14
--- NOTE | 2022-04-20 07:15 | CRLHL7_ITS ---
For Patients: As a result of the Century Cures Act, medical imaging exams and procedure reports are released immediately into your electronic medical record. You may view this report before your referring provider. If you have questions, please contact your health care provider. INDICATION: Follow-up intracranial metastatic disease. TECHNIQUE: Brain MRI with contrast. The following sequences were obtained: Sagittal T1 weighted sequence. DWI and ADC mapping sequences. Axial FLAIR and JESUS MANUEL T2 weighted sequences. T1 weighted post-contrast sequence(s). 15 cc of Dotarem gadolinium based contrast agent was used. COMPARISON: Brain MRI from 02/09/2022. FINDINGS: 2 millimeter enhancing lesion within the right middle frontal gyrus, series 9, image 31, not significantly changed in size. Previously seen right inferior frontal gyrus lesion resolved. No new enhancing intracranial lesions. No evidence of acute ischemia. No evidence of acute or chronic intracranial blood products. A few small FLAIR hyperintense foci within the supratentorial white matter, typical for chronic microvascular ischemic change. No hydrocephalus or extra-axial collections. The pituitary gland, parasellar structures and optic chiasm are normal. Posterior fossa is normal. All the major intracranial vascular structures demonstrate normal flow-related signal. The orbital contents are normal. No calvarial or skull base marrow signal abnormality. No obstructive sinus disease. No extracranial soft tissue findings. IMPRESSION: 1. Previous right inferior frontal gyrus lesion has resolved. Enhancing metastatic focus within the right middle frontal gyrus is unchanged. No new intracranial metastases. 2. No other significant intracranial pathology. Dictated by León Medina MD @ 04/20/2022 9:50:38 AM (Electronically Signed)
== END 2022-04-20 07:05 | disposition home or self-care (01) ==
PROVIDERS: Visit Provider Nurse Practitioner Family
DX: C79.31 Secondary malignant neoplasm of brain (principal); C34.90 Malignant neoplasm of unspecified part of unspecified bronchus or lung
CPT/HCPCS: 70553; A9575

== ENCOUNTER 2022-05-26 07:45 | Outpatient (CLI) | payer BC, SELFPAY ==
--- NOTE | 2022-05-26 08:00 | CRLHL7_ITS ---
For Patients: As a result of the Century Cures Act, medical imaging exams and procedure reports are released immediately into your electronic medical record. You may view this report before your referring provider. If you have questions, please contact your health care provider. INDICATION: Metastatic lung cancer; assess treatment response. Comparison: CT chest, abdomen and pelvis November 28, 2020 and August 21, 2021; PET-CT January 08, 2022 and 04/03/2021. TECHNIQUE: CT chest, abdomen and pelvis with intravenous contrast; coronal and sagittal reformats. FINDINGS: Status post resection lower lobe right lung. No abnormal mediastinal or hilar lymphadenopathy. No abnormal intra pulmonary nodular densities are identified. Normal size cardiac silhouette without any pericardial effusion. Mild diffuse fatty infiltration of the liver. Giant cavernous hemangioma left hepatic lobe ;stable when compared to 2020. No evidence of metastatic disease within the liver. No splenic pathology. No pancreatic pathology. Cholelithiasis. No adrenal pathology. No kidney stones or obstructive uropathy. No retroperitoneal lymphadenopathy. No evidence of abdominal or pelvic ascites. No pneumoperitoneum or intestinal obstruction. CT study of the pelvis is unremarkable. IUD in place. IMPRESSION: 1. Status post resection lower lobe right lung. 2. Giant cavernous hemangioma left hepatic lobe; stable. 3. No evidence of metastatic disease either in the chest, abdomen or pelvis and no interval change. Please note that all CT scans at this facility use dose modulation, iterative reconstruction, and/or weight-based dosing when appropriate to reduce radiation dose to as low as reasonably achievable. Dictated by Gus De La Cruz MD @ 05/26/2022 9:26:16 AM (Electronically Signed)
== END 2022-05-26 07:46 | disposition home or self-care (01) ==
LOC: CT 07:46
PROVIDERS: Visit Provider Nurse Practitioner Family
DX: Z09 Encounter for follow-up examination after completed treatment for conditions other than malignant neoplasm (principal); C34.90 Malignant neoplasm of unspecified part of unspecified bronchus or lung
CPT/HCPCS: 71260; 74177; Q9967

== ENCOUNTER 2022-06-08 13:45 | Outpatient (RCR) | payer BC, SELFPAY ==
[2022-01-16 10:03] LABS: Basophils Absolute Auto 0.04 K/uL (0.00-0.30); Basophils Percent Auto 0.6 % (0.0-3.0); Eosinophils Absolute Auto 0.11 K/uL (0.00-0.50); Eosinophils Percent Auto 1.7 % (0.0-7.0); Hematocrit 38.5 % (33.0-51.0); Hemoglobin* 12.9 gm/dL (12.0-16.0); Immature Granulocytes Abs Auto 0.01 K/uL (0.00-0.30); Lymphocytes Absolute Auto 1.45 K/uL (0.90-2.90); Lymphocytes Percent Auto 22.5 % (20-44); Mean Corpuscular HGB Conc 34 gm/dL (32-36); Mean Corpuscular Hemoglobin 31 pg (26-34); Mean Corpuscular Volume 91 fL (80-100); Monocytes Percent Auto 4.5 % (0.0-11.0); Neutrophils Absolute Auto 4.54 K/uL (1.7-7.0); Neutrophils Percent Auto 70.5 % (42.0-72.0); Platelet Count* 213 K/uL (140-440); RDW Coefficient of Variation % 12.7 % (11.5-15.5); Red Blood Count 4.23 m/uL (4.00-5.20); White Blood Count* 6.44 K/uL (4.50-11.00)
[2022-01-16 10:07] LABS: Slide Review Reflex No
[2022-01-16 10:11] LABS: Albumin* 4.2 g/dL (3.3-5.0); Chloride* 102 mmol/L (96-114)
[2022-01-16 10:12] LABS: Sodium* 140 mmol/L (135-149)
[2022-01-16 10:14] LABS: Alkaline Phosphatase* 145 U/L (40-150); Aspartate Amino Transferase* 23 U/L (12-35); Bilirubin Total* 1.2 mg/dL (0.1-1.5); Carbon Dioxide* 31 mmol/L (20-32); Creatinine* 0.8 mg/dL (0.5-1.5); Estimated Glomerular Filt Rate 90 ml/min; Total Protein* 7.3 g/dL (6.0-8.3)
[2022-01-16 10:15] LABS: Alanine Aminotransferase* 19 U/L (4-35); Blood Urea Nitrogen* 16 mg/dL (7-30); Calcium* 9.5 mg/dL (8.4-10.6); Glucose* 101 mg/dL (60-115)
--- NOTE | 2022-02-19 15:13 | ONC.NURNOTE ---
PA completed via phone with [facility] at approved for 1 year through 02/19/23
--- NOTE | 2022-04-07 12:58 | ONC.NURNOTE ---
[facility] phoned that they are no longer in network to supply gilotref Video Game Maker phoned Evelin and she does have new insurance as of 03/24/22 however this will need to be renewed again on 05/24/22 Evelin at this time has over 2 months of gilotrif on hand Evelin will email the RX cards to typewriter operator automatic
[2022-06-08 13:58] LABS: Basophils Absolute Auto 0.04 K/uL (0.00-0.30); Basophils Percent Auto 0.5 % (0.0-3.0); Eosinophils Absolute Auto 0.12 K/uL (0.00-0.50); Eosinophils Percent Auto 1.5 % (0.0-7.0); Hematocrit 39.3 % (33.0-51.0); Hemoglobin* 13.3 gm/dL (12.0-16.0); Immature Granulocytes Abs Auto 0.02 K/uL (0.00-0.30); Immature Granulocytes Pct Auto 0.3 %; Lymphocytes Absolute Auto 1.57 K/uL (0.90-2.90); Lymphocytes Percent Auto 20.1 % (20-44); Mean Corpuscular HGB Conc 34 gm/dL (32-36); Mean Corpuscular Hemoglobin 31 pg (26-34); Mean Corpuscular Volume 92 fL (80-100); Monocytes Percent Auto 5.2 % (0.0-11.0); Neutrophils Percent Auto 72.4 % (42.0-72.0); Platelet Count* 222 K/uL (140-440); RDW Coefficient of Variation % 12.1 % (11.5-15.5); Red Blood Count 4.28 m/uL (4.00-5.20); White Blood Count* 7.81 K/uL (4.50-11.00)
[2022-06-08 14:05] LABS: Slide Review Reflex No
[2022-06-08 14:30] LABS: Albumin* 4.4 g/dL (3.3-5.0); Chloride* 103 mmol/L (96-114)
[2022-06-08 14:31] LABS: Potassium* 3.7 mmol/L (3.6-5.1); Sodium* 139 mmol/L (135-149)
[2022-06-08 14:33] LABS: Alkaline Phosphatase* 106 U/L (40-150); Aspartate Amino Transferase* 21 U/L (12-35); Blood Urea Nitrogen* 17 mg/dL (7-30); Carbon Dioxide* 32 mmol/L (20-32); Creatinine* 0.7 mg/dL (0.5-1.5); Estimated Glomerular Filt Rate 105 ml/min; Total Protein* 7.8 g/dL (6.0-8.3)
[2022-06-08 14:34] LABS: Alanine Aminotransferase* 20 U/L (4-35); Calcium* 9.5 mg/dL (8.4-10.6); Glucose* 108 mg/dL (60-115)
--- NOTE | 2022-06-18 09:49 | ONC.NURNOTE ---
Addendum entered by Claribel Hickey RN 06/18/22 13:55: PA for Alecensa 150 mg submitted via [employer] Original Note: Re:Alectinib 150 mg tabs RX renewal and most recent insurance cards faxed to [facility] on 06/16/22 follow up call today- still in process - PA needed
--- NOTE | 2022-06-22 16:06 | ONC.NURNOTE ---
PA completed via covermymeds for Alecensa 150 mg caps 600 mg BID via [employer]/ BCBS [phone] [place] [employer]BS 06/20/22-06/20/23 [id number]
--- NOTE | 2022-06-24 16:01 | ONC.NURNOTE ---
[facility] RX was transferred to [facility]- per insurance requirements faxed the PA, RX and insurance [facility] received the information and is working on running through insurance- they will call Evelin when ready to be shipped Evelin has a copay RX card from [email or web address] to cover out of pocket costs of medication Evelin was called with the pharmacy change- she was already aware of this change
--- NOTE | 2022-07-09 11:47 | ONC.NURNOTE ---
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 Provider Foundation Form completed and signed by Clementine Johnston CNP and faxed to Mir Vracha at [phone]
== END 2022-07-15 23:59 | disposition home or self-care (01) ==
LOC: CCIC 13:45
PROVIDERS: Nurse Practitioner Family; PCP Internal Medicine Medical Oncology; Referring Provider Internal Medicine Medical Oncology; Visit Provider Internal Medicine Medical Oncology
DX: C34.91 Malignant neoplasm of unspecified part of right bronchus or lung (principal); C79.31 Secondary malignant neoplasm of brain
CPT/HCPCS: 36415; 80053; 85025; 99212; 99214

== ENCOUNTER 2022-09-07 08:01 | Outpatient (CLI) | payer BC, SELFPAY ==
--- NOTE | 2022-09-07 08:15 | CRLHL7_ITS ---
For Patients: As a result of the Century Cures Act, medical imaging exams and procedure reports are released immediately into your electronic medical record. You may view this report before your referring provider. If you have questions, please contact your health care provider. Indication: Metastatic lung cancer. Technique: Multiplanar, multisequence MRI of the brain was performed without and with intravenous contrast. Contrast: 15 cc Dotarem. Comparison: Multiple prior MRI of the brain, most recent dated 04/12/2022. Findings: The corpus callosum, pituitary gland and clivus appear intact. Craniocervical junction is preserved. There is no restricted diffusion. No intracranial hemorrhage. The ventricles are proportionate to the cerebral sulci. The 4th ventricle appears midline. The basal cisterns appear patent. No abnormal extra-axial fluid collection identified. There is a stable 2 mm focus of intrinsic T1 hyperintensity, with slight enhancement, compatible with metastases within the right middle frontal gyrus (series 9, image 47). Small amount of associated T2 FLAIR hyperintensity. There is an additional stable tiny focus of abnormal enhancement along the right inferior frontal gyrus (series 10, image 57) measuring approximately 2 mm. No new focus of abnormal enhancement elsewhere. Few scattered nonspecific T2 FLAIR hyperintense white matter foci. Major intracranial vascular flow voids appear grossly intact. Both globes are preserved. Mild paranasal sinus mucosal disease. Impression: 1. No evidence for new intracranial metastases. 2. Stable right middle and inferior frontal metastatic foci, compared to 02/09/2022. The inferior frontal metastatic focus is likely better visualized compared to 04/20/2022 given thin postcontrast sequences on the current examination. 3. Few scattered nonspecific T2 FLAIR hyperintense white matter foci. Differential considerations include sequela of migraine headaches or chronic ischemic microvascular disease. Dictated by Elgin Uribe MD @ 09/07/2022 10:01:49 AM (Electronically Signed)
--- NOTE | 2022-09-07 09:00 | CRLHL7_ITS ---
For Patients: As a result of the Century Cures Act, medical imaging exams and procedure reports are released immediately into your electronic medical record. You may view this report before your referring provider. If you have questions, please contact your health care provider. Indication: MALIGNANT NEOPLASM METASTATIC TO BRAIN Technique: Postcontrast CT chest, abdomen and pelvis. 100 cc Isovue intravenous contrast administered. Please note that all CT scans at this facility use dose modulation, iterative reconstruction, and/or weight-based dosing when appropriate to reduce radiation dose to as low as reasonably achievable. Comparison: 05/26/2022 Findings: In the chest, the visualized thyroid is within normal limits. Incidental pericardial cyst is noted. Mild residual thymic tissue is present in the anterior mediastinum. No enlarged mediastinal or hilar lymph nodes. No axillary adenopathy. Postop changes of right lower lobectomy again noted. No pleural effusion or infiltrate. No suspicious pulmonary nodule. In the abdomen, there is similar appearance of the liver with giant cavernous hemangioma within the left hepatic lobe. Stable noncalcified gallstones throughout the gallbladder lumen. No biliary obstruction. Spleen normal. Adrenal glands unremarkable. Normal kidneys. Incidental parapelvic cysts bilaterally regarding both kidneys. Atherosclerotic disease in the aorta. Pancreatic parenchyma is normal. No enlarged mesenteric or retroperitoneal lymph nodes. The stomach appears normal. Normal duodenum and jejunum. Unremarkable ileum. In the pelvis, there is no bowel obstruction. No free fluid or abscess. IUD in the uterus. Normal ovaries. Bladder normal. No bowel obstruction. Appendix normal. No abdominal wall hernia. The L4 vertebral body appears similar with low-density changes involving the inferior and superior endplates on the left. No pathologic fracture. Facet degeneration is noted at L4-5 without significant spondylolisthesis. Impression: Stable postop changes of right lower lobectomy. Stable subcentimeter retroperitoneal lymph nodes and stable appearance of the L4 vertebral body. Stable appearance of the liver with giant cavernous hemangioma formation. Please note that all CT scans at this facility use dose modulation, iterative reconstruction, and/or weight-based dosing when appropriate to reduce radiation dose to as low as reasonably achievable. Dictated by Sunny Louis MD @ 09/07/2022 1:23:02 PM (Electronically Signed)
== END 2022-09-07 08:02 | disposition home or self-care (01) ==
PROVIDERS: Visit Provider Internal Medicine Medical Oncology
DX: C79.31 Secondary malignant neoplasm of brain (principal); C34.90 Malignant neoplasm of unspecified part of unspecified bronchus or lung; D18.09 Hemangioma of other sites
CPT/HCPCS: 70553; 71260; 74177; A9575; Q9967

== ENCOUNTER 2022-12-28 07:29 | Outpatient (CLI) | payer BC, SELFPAY ==
--- NOTE | 2022-12-28 08:15 | MR_ITS ---
Patient: SONNY RUBY Facility:?[facility] Patient ID:?[id number] Site Patient ID:?[id number]. Site :?1970 Study:?MRI-Head WO/W DOTAREM 15ML-12/28/2022 9:05:35 AM Ordering Physician:Reji Vásquez Final Report: Indication: Metastatic lung cancer. Technique: Multiplanar multisequence MR of the brain without and following administration of 15 mL gadolinium-based IV contrast. Comparison: MR brain dated 09/07/2022. Findings: Diffusion-weighted imaging demonstrates no evidence of acute or subacute ischemia. Previously referenced lesions as follows: - Slight increase size of the T1 hyperintense and enhancing nodular focus adjacent to the right superior frontal sulcus measuring 4 millimeters (series 13, image 173), previously 2 millimeters. - Unchanged tiny 2 millimeter focus enhancement along the right inferior frontal gyrus (series 14, image 59). An additional 2 millimeter focus of enhancement is noted in the inferior right frontal lobe (series 13, image 33 and series 14, image 77) is slightly more conspicuous on this exam. Similar few scattered nonspecific foci of T2/FLAIR white matter hyperintensity. Flow voids of both larger intracranial vessels are patent. No suspicious calvarial lesion is identified. The orbits appear within normal limits. The paranasal sinuses and mastoid air cells are essentially clear. Impression: Slight increase in size of the T1 hyperintense enhancing nodular focus in the right superior frontal sulcus. Unchanged tiny 2 millimeter right inferior frontal metastatic focus. Additional 2 millimeter focus of enhancement in the inferior right frontal lobe (series 13, image 133) is slightly more conspicuous on this exam. An adjacent cortical vessel raises the possibility of vascular etiology, but small metastatic deposit cannot be excluded. Dictated by Jose Ramon Oreilly MD @ 12/28/2022 10:58:29 AM Signed by:?Jose Ramon Oreilly MD @12/28/2022 10:58:29 AM (Electronic Signature)
--- NOTE | 2022-12-28 09:00 | CRLHL7_ITS ---
For Patients: As a result of the Century Cures Act, medical imaging exams and procedure reports are released immediately into your electronic medical record. You may view this report before your referring provider. If you have questions, please contact your health care provider. Indication: 4 MONTH FOLLOW UP LUNG CANCER Technique: Postcontrast CT chest, abdomen and pelvis. 110 cc Isovue 370 intravenous contrast. Please note that all CT scans at this facility use dose modulation, iterative reconstruction, and/or weight-based dosing when appropriate to reduce radiation dose to as low as reasonably achievable. Comparison: 09/07/2022 Findings: In the chest, mild linear subsegmental scarring is present within the right lung base. Mild atelectasis in the left lung base. No pleural effusion or infiltrate. No edema or pneumothorax. No pulmonary nodule. Visualized thyroid normal. No mediastinal, hilar or axillary adenopathy. No fracture or intrinsic osseous lesion. In the abdomen, lobular heterogeneous masses are similar compatible with giant cavernous angiomas. No additional lesions. The gallbladder is nondistended. A small cholesterol stone is present. The spleen is normal. Normal pancreas. The adrenal glands are normal. No solid renal mass or hydronephrosis. Left renal extrarenal pelvis is again noted. The ureters are normal. Similar upper retroperitoneal lymph nodes measuring up to 1.1 cm. Mild atherosclerotic changes are present. No aneurysm. In the pelvis, the bladder is normal. Normal uterus. IUD located centrally within the uterus. Both ovaries are normal. No pelvic free fluid or abscess. Normal appendix. No bowel obstruction. No abdominal wall hernia. No pelvic or inguinal adenopathy. Similar appearance of the L4 vertebral body with foci of decreased density at the superior and inferior endplates. Impression: Stable postsurgical changes to the right hemithorax. Stable subcentimeter upper retroperitoneal lymph nodes. Stable appearance of L4. Unchanged hepatic hemangiomas. Please note that all CT scans at this facility use dose modulation, iterative reconstruction, and/or weight-based dosing when appropriate to reduce radiation dose to as low as reasonably achievable. Dictated by Sunny Louis MD @ 12/28/2022 12:41:24 PM (Electronically Signed)
== END 2022-12-28 07:30 | disposition home or self-care (01) ==
LOC: MRI 07:30
PROVIDERS: Visit Provider Internal Medicine Hematology & Oncology
DX: C34.90 Malignant neoplasm of unspecified part of unspecified bronchus or lung (principal)
CPT/HCPCS: 70553; 71260; 74177; A9575; Q9967

== ENCOUNTER 2023-01-22 14:02 | Outpatient (CLI) | payer BC, SELFPAY | END 2023-01-22 14:03 | disposition home or self-care (01) | LOC: MRI 14:03 | PROVIDERS: Visit Provider Internal Medicine | DX: C79.31 Secondary malignant neoplasm of brain (principal) | CPT/HCPCS: 70553; A9575 ==

== ENCOUNTER 2023-04-19 10:24 | Outpatient (CLI) | payer BC, SELFPAY | END 2023-04-19 10:25 | disposition home or self-care (01) | LOC: MRI 10:25 | PROVIDERS: Visit Provider Internal Medicine | DX: C79.31 Secondary malignant neoplasm of brain (principal) | CPT/HCPCS: 70553; A9575 ==

== ENCOUNTER 2023-05-03 07:31 | Outpatient (CLI) | payer BC, SELFPAY ==
--- NOTE | 2023-05-03 08:00 | CRLHL7_ITS ---
For Patients: As a result of the Century Cures Act, medical imaging exams and procedure reports are released immediately into your electronic medical record. You may view this report before your referring provider. If you have questions, please contact your health care provider. Indication: 3 MONTH FOLLOW UP FOR LUNG CANCER Technique: CT Chest/Abd/Pelvis 109 CC ISOVUE 370 AND WATER PREP Please note that all CT scans at this facility use dose modulation, iterative reconstruction, and/or weight-based dosing when appropriate to reduce radiation dose to as low as reasonably achievable. Comparison: 12/28/2022 Findings: In the chest, no suspicious thyroid lesion. Incidental pericardial recess noted. No enlarged mediastinal, hilar or axillary lymph nodes. No fracture. No suspicious osseous lesion. Postop changes right lower lobectomy. Mild atelectasis within the left lower lobe. No pulmonary edema or infiltrate. No pleural effusion or pneumothorax. In the chest, joint cavernous hemangiomas are similar arising from the left hepatic lobe. The spleen is normal. Mild hepatic steatosis. No suspicious intrahepatic mass. Gallbladder is nondistended with multiple cholesterol stones. No biliary obstruction. The pancreas is normal. Normal adrenal glands. Left extrarenal pelvis incidentally noted. Right kidney normal. Atherosclerotic changes. No aneurysm. Stable mild chronic mesenteric panniculitis. In the pelvis, IUD in the midline of the pelvis. No uterine fibroid. Normal ovaries. No adenopathy. No bowel obstruction. Appendix normal. Stable appearance of the L4 vertebral body. Stable bone island within the right sacrum. Impression: Stable exam. No evidence of metastatic disease. Please note that all CT scans at this facility use dose modulation, iterative reconstruction, and/or weight-based dosing when appropriate to reduce radiation dose to as low as reasonably achievable. Dictated by Sunny Louis MD @ 05/03/2023 11:59:17 AM (Electronically Signed)
== END 2023-05-03 07:32 | disposition home or self-care (01) ==
LOC: CT 07:32
PROVIDERS: Visit Provider Internal Medicine Hematology & Oncology
DX: C34.90 Malignant neoplasm of unspecified part of unspecified bronchus or lung (principal)
CPT/HCPCS: 71260; 74177; Q9967

== ENCOUNTER 2023-08-02 08:22 | Outpatient (CLI) | payer BC, SELFPAY ==
--- NOTE | 2023-08-02 09:00 | CT_ITS ---
Patient: SONNY PERDOMOMAN Facility:?[facility] Patient ID:?[id number] Site Patient ID:?[id number] Site :?1970 Study:?CT-Chest/Abd/Pelvis W/ 109CC ISOVUE 370-08/02/2023 9:05:18 AM Ordering Physician:ALBINO Final Report: Indication: Lung cancer Technique: CT Chest/Abd/Pelvis W/ 109CC ISOVUE 370 Please note that all CT scans at this facility use dose modulation, iterative reconstruction, and/or weight-based dosing when appropriate to reduce radiation dose to as low as reasonably achievable. Comparison: 05/03/2023, 12/28/2022, 09/07/2022 Findings: In the chest, the visualized thyroid gland is within normal limits. No enlarged mediastinal or hilar lymph nodes. The breast tissue is within normal limits. Normal axillary lymph nodes. Normal skeletal system in the thorax. No vertebral body compression fracture. Postop changes of partial pneumonectomy on the right are stable with mild residual areas of scarring in the right lateral lung base. No pleural effusion or edema. No pneumothorax. No suspicious pulmonary nodule. In the abdomen, cavernous hemangiomas are again noted within the caudate lobe and left hepatic lobe. No suspicious intrahepatic mass. The gallbladder is incompletely distended and contains several noncalcified gallstones, as before. The spleen is normal. Normal pancreas. The adrenal glands are normal. Parapelvic left renal cysts. No suspicious renal mass or hydronephrosis. Incidental circumaortic left renal vein. No retroperitoneal or mesenteric adenopathy. Atherosclerotic changes. In the pelvis, the bladder is normal. IUD is present in the uterus. Both ovaries are normal. No bowel obstruction. Normal appendix. No free air or free fluid. No abscess. No inflammatory changes. No pelvic or inguinal adenopathy. Chronic changes to the L4 vertebral body are unchanged. Degenerative facet arthropathy lower lumbar spine. Intact sacrum and hip joints. A few scattered incidental bone islands are present. Impression: Stable exam. Unchanged L4 vertebral body. Postop changes partial right lung resection. Intrahepatic hemangiomas are similar. Please note that all CT scans at this facility use dose modulation, iterative reconstruction, and/or weight-based dosing when appropriate to reduce radiation dose to as low as reasonably achievable. Dictated by Sunny Louis MD @ 08/02/2023 9:56:48 AM Signed by:?Sunny Louis MD @08/02/2023 9:56:48 AM (Electronic Signature)
--- NOTE | 2023-08-02 09:15 | MR_ITS ---
Patient: SONNY RUBY Facility:?[facility] Patient ID:?[id number] Site Patient ID:?[id number]. Site :?1970 Study:?MRI-Head WO/W DOTAREM 19ML-08/02/2023 10:16:41 AM Ordering Physician:ALBINO Final Report: Indication: F/U BRAIN METS Technique: Noncontrast sagittal T1, axial FLAIR, T2 turbo spine echo, and diffusion weighted images. Supplemental post contrast T1 weighted axial and coronal sequences are provided after administration of 19 mL Dotarem gadolinium-based IV contrast. Comparison: MRI 04/19/2023, 01/22/2023 Findings: Slight enlargement of enhancing metastasis in the right anterior frontal lobe (series 13, image 129 measuring 4 mm previously 3 mm. Slight enlargement of a 3 mm enhancing metastasis in the head of the right caudate nucleus (series 13, image 109), previously 2 mm. Slight enlargement of a 3 mm enhancing metastasis in the right superior frontal gyrus (series 13, image 160 previously 2 mm). Stable 3 mm enhancing lesion in the right frontal lobe tong matter (series 13, image 126). Stable 3 mm enhancing lesion in the right frontal lobe (series 13, image 108). Apparent new 2 mm focus of enhancement in the left frontal lobe tong-white matter junction versus artifact (series 13, image 123). No evidence of diffusion restriction to suggest acute ischemia. Few scattered foci of T2 prolongation in the frontal and parietal lobe and temporal lobe periventricular and subcortical white matter are nonspecific. No suspicious extra-axial collection or acute intracranial hemorrhage. Expected intracranial vascular flow voids are preserved. The scalp soft tissues are grossly normal. The calvarium is intact. The orbits and paranasal sinuses are grossly normal. The mastoid air cells are clear. Leftward deviation of the nasal septum with septal spur. Impression: 1. Apparent new 2 mm focus of enhancement in the left frontal lobe at the tong- white matter junction versus artifact. Short-term follow up imaging is recommended. 2. Slight enlargement of 3 enhancing metastases in the right anterior frontal lobe, head of the right caudate nucleus and right superior frontal gyrus without associated edema. As there were significant differences in the postcontrast technique, findings could be attributed to differences in technique. 3. Stable 2 enhancing metastatic lesions in the right frontal lobe. 4. No evidence of acute intracranial abnormality. Dictated by Sunny Cazares MD @ 08/04/2023 3:53:38 PM Signed by:?Sunny Cazares MD @08/04/2023 3:53:38 PM (Electronic Signature)
== END 2023-08-02 08:23 | disposition home or self-care (01) ==
LOC: CT 08:24
PROVIDERS: Visit Provider Internal Medicine Hematology & Oncology
DX: C34.90 Malignant neoplasm of unspecified part of unspecified bronchus or lung (principal); C79.31 Secondary malignant neoplasm of brain
CPT/HCPCS: 70553; 71260; 74177; A9575; Q9967

== ENCOUNTER 2023-10-06 12:38 | Outpatient (CLI) | payer BC, SELFPAY ==
--- OUTSIDE RECORDS SUMMARY | 2023-10-06 12:41 | XMS_ITS | Encounter Summary ---
Author Name Unknown Organization [facility] Address [address] [place] [address] Care Team Providers Care Digital Camera Technician Name Role Phone Jessica Schulz APRN, C.N.P., D.N.P. Primary C are Provider Reason for Visit * Reason Onset Date Comments Health Maintenance 09/08/2023 Encounter Details Date Type Department Care Team (Latest Contact Info) Description 09/08/2023 Clinical Communication Department of Family Medicine, [facility], in [place], [place] [address] [place] [phone] Jessica Schulz APRN, C.N.P., D.N.P. [address] [place] [phone] Health Maintenance Social History Tobacco Use Types Packs/Day Years Used Date Smoking Tobacco: Former Cigarettes 1 23 1 - 2014 Smokeless Tobacco: Never Alcohol Use Standard Drinks/Week Comments Not Currently 0 (1 standard drink = 0.6 oz pur e alcohol) Humiliation, Afraid, Rape, and Kick questionnair e Answer Date Recorded Within the last year, have y ou been afraid of your partner or ex-partner? No 01/08/2023 Within the last year, have y ou been humiliated or emotionally abused in other ways by your partner or ex-partner? No Within the last year, have y ou been kicked, hit, slapped, or otherwise physically hurt by your partner or ex-partner? No 01/08/2023 Within the last year, have y ou been raped or forced to have any kind of sexual activity by your partner or ex-partner? No 01/08/2023 Social Connection and Isolat ion Panel [NHANES] Answer Date Recorded Frequency of Communication w ith Friends and Family More than three times a week 12/08/2018 Frequency of Social Gatherin gs with Friends and Family Once a week 12/08/2018 Attends [employer] Services 1 to 4 times per year 12/08/2018 Active Member of Clubs or Organizations No 12/08/2018 Attends Club or Organization Meetings Never 12/08/2018 Marital Status Living with partner 12/08/2018 AUDIT-C Answer Date Recorded Frequency of Alcohol Consumption Monthly or less 12/23/2018 Average Number of Drinks 1 or 2 019 Frequency of Binge Drinking Less than monthly Overall Financial Resource Strain (CARDIA) Answe r Date Recorded How hard is it for you to pa y for the very basics like food, housing, medical care, and heating? Not very hard 01/08/2023 PHQ-2 Answer Date Recorded PHQ-2 Score 0 06/22/2023 [facility] - Occupational Stress Questionnaire Answer Date Recorded Feeling of Stress Only a little 12/23/2018 Exercise Vital Sign Answer Date Recorde d On average, how many days pe r week do you engage in moderate to strenuous exercise (like a brisk walk)? 3 days 01/08/2023 On average, how many minutes do you engage in exercise at this level? 30 min 01/08/2023 Hunger Vital Sign Answer Date Recorded Within the past 12 months, y ou worried that your food would run out before you got the money to buy more. Never true 01/09/20 23 Within the past 12 months, t he food you bought just didn't last and you didn't have money to get more. Never true 01/08/2023 PRAPARE - Transportation Answer Date Re corded In the past 12 months, has l ack of transportation kept you from medical appointments or from getting medications? No 12/22 In the past 12 months, has l ack of transportation kept you from meetings, work, or from getting things needed for daily living? No 01/08/2023 Nutrition Answer Date Recorded Nutrition: EVOO Fat Source Unknown 01/08 On average, how many serving s of fruits and vegetables do you eat per day (serving size is equal to 1 cup or approximately the size of a tennis ball)? 0-2 01/08/2023 Dental Answer Date Recorded Dental: Regular Dentist Yes 01/09/20 Employment Answer Date Recorded Employment status Employed and actively working without restrictions 01/08/2023 Housing Stability Answer Date Recorded What is your living situation today? I have a [facility] place to live 01/08/2023 Education Answer Date Recorded What is the highest level of school you have completed or the highest degree you have received? Associate degree: occupational, technical, or vocational program 12/08/2018 Sex and Gender Information Value Date Recorded Sex Assigned at Female 01/08/2023 5:32 AM CDT Gender Identity Female 12/08/2018 2:54 PM CDT Sexual Orientation Straight 12/08/2018 2: 54 PM CDT documented as of this encounter Miscellaneous Notes * Telephone Encounter - Yasmin Velázquez - 09/08/2023 1:32 PM CDT I reached out to the patient today via phone call and portal message and I was unable to reach the patient. This is the 1st contact by the [facility] team to schedule preventive care services. The preventive care topics I outreached about include: Cervical Cancer Screening Fasting Glucose and Lipid Panel Mammogram The outcome of this communication includes: Left Message and Sent Portal Message The [facility] team will contact the patient again in 1 week. Next Primary Care appointment: does not have a visit scheduled in Primary Care within the next 3 months Last appointment with their PCP: 08/06/2023 Additional services offered: None Yasmin Boswell Preventative Health Specialist documented in this encounter Plan of Treatment Upcoming Encounters Date Type Department Care Team (Late st Contact Info) Description 10/19/2023 3:00 PM CDT Appointment Department of Radiation Oncology in [place] [id number] [place] [phone] Abisai Ortega M.D. [address] [place] [phone] documented as of this encounter Visit Diagnoses Not on filedocumented in this encounter Additional Health Concerns Infection Onset Date Last Indicated Resolved Time Protective Environment 01/07/2023 01/07/2023 Assessment Noted Time PHQ-9 Depression Total Score: 13 019 8:17 AM CDT documented as of this encounter Care Teams Digital Camera Technician Relationship Specialty Start Date End Date Jessica Schulz APRN, C.N.P., D.N.P. [address] [place] [phone] PCP - General 12/12/20 documented as of this encounter
--- OUTSIDE RECORDS SUMMARY | 2023-10-06 12:41 | XMS_ITS | Encounter Summary ---
Author Name Unknown Organization [facility] Address [address] [place] [address] Care Team Providers Care Cartography/Mapping Technician Name Role Phone Jessica Schulz APRN, C.N.P., D.N.P. Primary C are Provider Reason for Visit * Reason Onset Date Comments Health Maintenance 09/15/2023 Encounter Details Date Type Department Care Team (Latest Contact Info) Description 09/15/2023 Clinical Communication Department of Family Medicine, [facility], in [place], [place] [address] [place] [phone] Jessica Schulz APRN, C.N.P., D.N.P. [address] [place] [phone] Health Maintenance Social History Tobacco Use Types Packs/Day Years Used Date Smoking Tobacco: Former Cigarettes 1 1 99 - 2014 Smokeless Tobacco: Never Alcohol Use [...] and Family Once a week 12/08/2018 Attends Mosque Services 1 to 4 times per year [...] Answer Date Recorded PHQ-2 Score 0 06/22/2023 [facility] - Occupational [...] your living situation today? I have a [facility] place to live 01/08/2023 Education Answer Date [...] * Telephone Encounter - Yasmin Velázquez - 09/15/2023 11:53 AM CDT I reached out to the patient today via phone call, task-based text, and letter and I was unable to reach the patient. This is the 2nd contact by the [facility] team to schedule preventive care services. The preventive care topics I outreached about include: Cervical Cancer Screening Lipid Panel Mammogram The outcome of this communication includes: Left Message and Sent Letter Sent Text The [facility]HS team will contact the patient again next time they're due for preventive care. Next Primary Care appointment: does not have a visit scheduled in Primary Care within the next 3 months Last appointment with their PCP: 08/06/2023 Additional services offered: None Yasmin Boswell Preventative Health Specialist documented in this encounter Plan of Treatment Upcoming Encounters Date Type Department Care Team (Late st Contact Info) Description 10/19/2023 3:00 PM CDT Appointment Department of Radiation Oncology in [place] [address] [place] [phone] Abisai Ortega M.D. [address] [place] [phone] documented as of this encounter Visit Diagnoses Not on filedocumented in this encounter Additional Health Concerns Infection Onset Date Last Indicated Resolved Time Protective Environment 01/07/2023 01/07/2023 Assessment Noted Time PHQ-9 Depression Total Score: 13 019 8:17 AM CDT documented as of this encounter Care Teams Cartography/Mapping Technician Relationship Specialty Start Date End Date Jessica Schulz APRN, C.N.P., D.N.P. [address] [place] [phone] PCP - General 12/12/20 documented as of this encounter
--- OUTSIDE RECORDS SUMMARY | 2023-10-06 12:41 | XMS_ITS ---
Author Name Unknown Organization [facility] Address [address] [place] [address] Care Team Providers Care Vehicle Fare Collector Name Role Phone Unavailable Unavailable Unavailable Surgery Details Not on file Complications Check Surgery Details section. Procedure Estimated Blood Loss Check Surgery Details section. Procedure Findings Check Surgery Details section. Procedure Specimens Taken Check Surgery Details section.
--- OUTSIDE RECORDS SUMMARY | 2023-10-06 12:41 | XMS_ITS | Clinical Summary ---
Author Name Unknown Organization [facility] Address [address] [place] [address] Care Team Providers Care Crop Quantitative Geneticist Name Role Phone Jessica Schulz APRN, C.N.P., D.N.P. Primary C are Provider Source Comments Patient records contain information from all sites at [facility]. For routine questions regarding patient records, call [phone] during business hours, M-F 8:00 AM - 5:00 PM Central Time. Record requests for emergency care only can be directed to [phone] at any time.[facility] Allergies No known active allergies Medications Medication Sig Dispensed Refills Start Date End Date Status acetaminophen 325 mg capsule as needed. 08/05/2015 Active levonorgestrel (MIRENA) 20 mcg/24 hours (5 yrs) 52 mg IUD by intrauterine route. 01/26/2007 Active ALECENSA 150 mg capsule 03/03/2019 Active omeprazole (PriLOSEC) [address] capsuleIndications :Tenderness Epigastric Take 1 capsule (40 mg total) by mouth every morning before breakfast. 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 on 02/01/2019 Pathologic stage from 02/01/2019: pT2, pN2, cM0 - Signed by Chance Lamas M.D. on 02/01/2019 Encounters Date Type Department Care Team Description 09/15/2023 Clinical Communication Department of Family Medicine, [facility], in [place], [place] [address] [place] [phone] Jessica Schulz APRN, C.N.P., D.N.P. Health Maintenance 09/08/2023 Clinical Communication Department of Family Medicine, [facility], in [place], [place] [address] [place] [phone] Jessica Schulz APRN, C.N.P., D.N.P. Health Maintenance 08/24/2023 Orders Only [facility] MNT Jessica Schulz APRN, C.N.P., D.N.P. Screening Examination Diabetes Mellitus; Screening Lipid; Screening Mammogram Breast Cancer 08/19/2023 Refill Department of Family Medicine, [facility], in [place], [place] [address] [phone] Jessica Schulz APRN, C.N.P., D.N.P. Med Refill 08/11/2023 Clinical Communication Department of Radiation Oncology in [address] [phone] Sarai Yoon PPuneet., M.S. 08/06/2023 3:30 PM CDT Office Visit Department of Family [facility], [facility], in [place], [place] [address] [phone] Jessica Schulz APRN, C.N.P., D.N.P. Effusion Ear Middle Bilateral (Primary Dx); Tenderness Epigastric 07/27/2023 9:00 AM [facility] Clinical Communication Virtual Review in [address] [address] 07/13/2023 Clinical Communication Department of Radiation Oncology in [place], [place] [address] [place] [address] Abisai Ortega M.D. from Last 3 Months Immunizations Name Administration Dates Next Due Influenza, Unspecified 03/30/2013 SARS-COV-2 (COVID-19) - MODERNA(Discontinued) ,01/17/2021 Tdap 03/30/2013 Family History Medical History Relation Name Comments Lung cancer Aunt Lung cancer Father Lung cancer Maternal Grandfather Cancer Maternal Grandmother Lung cancer Paternal Grandfather Lung cancer Uncle Relation Name Status Comments Aunt Father Maternal Grandfather Maternal Grandmother Paternal Grandfather Uncle Social History Tobacco Use Types Packs/Day Years Used Date Smoking Tobacco: Former Cigarettes 1 2014 Smokeless Tobacco: Never Tobacco Cessation:Counseling Given: Not Answered Alcohol Use Standard Drinks/Week Comments Not Currently [...] and Family Once a week 12/08/2018 Attends Jain Services 1 to 4 times per year [...] Answer Date Recorded PHQ-2 Score 0 06/22/2023 [facility] of Occupat ional Health - Occupational Stress [...] money to buy more. Never true 01/09/20 Within the past 12 months, t he [...] your living situation today? I have a [place] place to live 01/08/2023 Education Answer Date Recorded What is the highest level of school you have completed or the highest degree you have received? Associate degree: occupational, technical, or vocational program 12/08/2018 Sex and Gender Information Value Date Recorded Sex Assigned at Female 01/08/2023 5:32 AM CDT Gender Identity Female 12/08/2018 2:54 PM CDT Sexual Orientation Straight 12/08/2018 2: 54 PM CDT Last Filed Vital Signs Vital Sign Reading Time Taken Comments Blood Pressure 125/88 08/06/2023 2:52 PM CDT Pulse 102 08/06/2023 3:23 PM CDT Temperature 36.2 ??C (97.1 ??F) 08/06/2023 2:52 PM CD T Respiratory Rate 18 12/04/2018 8:14 AM CDT Oxygen Saturation - - Inhaled Oxygen Concentration - - Weight 102 kg (224 lb 3.3 oz) 08/06/2023 2:52 PM CDT Height 164.4 cm (5' 4.72) 06/23/2023 1:08 PM CS T Body Mass Index 37.63 06/23/2023 1:08 PM EQUIPMENT MAINTENANCE SUPERINTENDENT Plan of Treatment Upcoming Encounters Date Type Department Care Team (Late st Contact Info) Description 10/19/2023 3:00 PM CDT Appointment Department of Radiation Oncology in [place], [place] [address] [place] [address] Abisai Ortega M.D. [address] [place] [address] Health Maintenance Due Date Last Done Comments CT Colonography 1971 Cologuard 1970 Colonoscopy 1970 Colorectal Cancer Screening 1970 FIT 1970 HIV Screening 1971 Hepatitis C Screening 1971 Pneumococcal vaccine (0-64 years) (1 of 2 - PCV) 09/29/1977 Hepatitis B Vaccines (1 of 3 - 19+ 3-dose series) 09/29/1990 Zoster Vaccines (1 of 2) 09/29/1990 Mammogram 07/05/2014 07/05/2013 (Perf ormed elsewhere), 03/30/2013, 09/05/2012 (Performed elsewhere) Cervical Cancer Screening 03/30/2016 03/30/2013 Fasting Glucose for Diabetes Screening 09/07/2017 09/07/2014, 04/12/2013, 04/12/2013, Additional history exists Lipid (Cholesterol) Screening 04/04/2018 04/04/2013 COVID-19 Vaccine ( season) 2023 08/12/2021, 01/17/2021, 08/28/2020, Additional history exists Influenza Vaccine (#1) 2023 03/30/2013 DTaP,Tdap,and Td Vaccines (2 - Td or Tdap) 03/30/2023 03/30/2013 Depression Screening (Annual PHQ-2) Completed 06/23/2023, 06/22/2023 HPV Vaccines Aged Out No longer eligi ble based on patient's age to complete this topic Medical Devices Implanted Type Area In Service Coordinator Device Identifier Shelf Expiration Date Model / Serial / Lot Conversions - Default Historical Implant Device Implanted:05/2009 (Quantity not on file) Intrauterine Device Other/Legacy - See Implant Description Description:Device Status Te xt - IUD.Mirena Procedures Procedure Name Priority Date/Time Associated Diagnosis Comments OUTSIDE MR NEURO Routine 08/02/2023 9:05 AM CDT GLUCOSE, FASTING, S/P Routine 09/07/2014 10:25 AM CDT LIPID PANEL, S Routine 04/04/2013 7:24 AM EQUIPMENT MAINTENANCE SUPERINTENDENT BI BREAST SCREENING BILATERAL Routine 03/30/2013 4:07 PM EQUIPMENT MAINTENANCE SUPERINTENDENT PATHOLOGY MANAGER ZONE CYTOLOGY Routine 03/30/2013 12:00 AM EQUIPMENT MAINTENANCE SUPERINTENDENT from Last 3 Months or Most Recently Relevant to Health Maintenance Results * MR head/brain wo/w con-Outside MR Neuro (08/02/2023 9:05 AM CDT) 08/02/2023 9:02 AM CDT Narrative IIMS - 08/02/2023 10:23 AM CDT This order has been created and auto-finalized to support the import of outside images. If available, original interpretation can be found on the Media Tab in Chart Review, in Document Viewer, or as an image in QREADS. If a re-interpretation or overread is required please follow defined workflow. ?? Provider Not In System IMG MRI PROCEDURE S IIMS NA * (ABNORMAL) Glucose, Fasting (09/07/2014 10:25 AM CDT) Last Intake 14 HR [facility] Glucose, P 101(H) 70 - 100 MG/DL [facility] 09/07/2014 10:2 5 AM CDT 09/07/2014 10:25 AM CDT Lonnie Moreland P.A.-C. LAB BLOOD NON ADD-ON Performing Organization Address [facility] Co de Phone Number [facility] [address] * (ABNORMAL) Lipid Panel (04/04/2013 7:24 AM EQUIPMENT MAINTENANCE SUPERINTENDENT) Calculated LDL 141(H) 0 - 100 MGDL POWERCHART Total Cholesterol/HDL Ratio 5.23(H) 2.20 - 4.40 POWERCHART Cholesterol, Total 204(H) <=200 MGDL POWERCHART HX HDL 39(L) 40 - 60 MGDL POWERCHART Triglycerides 119 <=150 MGDL POWERCHART HXLDL/HDL 4 POWERCHART Blood 04/04/2013 7:24 AM EQUIPMENT MAINTENANCE SUPERINTENDENT Rachel Foreman M.D. LAB BLOOD ADD-ON Performing Organization Address [facility] Co de Phone Number POWERCHART * BI Breast Screening Bilateral (03/30/2013 4:07 PM EQUIPMENT MAINTENANCE SUPERINTENDENT) Anatomical Region Laterality Modality Breast Bilateral Mammography 03/30/2013 4:07 PM EQUIPMENT MAINTENANCE SUPERINTENDENT Impressions 03/31/2013 10:19 AM EQUIPMENT MAINTENANCE SUPERINTENDENT Recommendations: ??I recommend a follow-up mammogram in 1 year, self breast exams at least once per month and clinical breast exam at least once per year. ??Of note, benign findings should not deter biopsy in the setting of a palpable abnormality. ??The false negative rate of mammography is approximately 10%. CODE: 1-NEGATIVE Appropriate letter sent. Full field digital mammography is used and Computer Aided Detection is performed on the digital mammogram images. Narrative 03/31/2013 10:19 AM EQUIPMENT MAINTENANCE SUPERINTENDENT EXAM: MA Mammo Screening w/ CADD INDICATION: screening ? AGE: 42 years-old COMPARISON: None. Baseline. VIEWS: MLO and CC views of bilateral breasts. Right exaggerated CC FINDINGS: Heterogeneously dense breast tissues can obscure small masses. Procedure Note Sunny Sargent M.D. / Rose Stovall M.D. - 10/09/2016 EXAM: MA Mammo Screening w/ CADD INDICATION: screening AGE: 42 years-old COMPARISON: None. Baseline. VIEWS: MLO and CC views of bilateral breasts. Right exaggerated CC FINDINGS: Heterogeneously dense breast tissues can obscure small masses. IMPRESSION: Recommendations: I recommend a follow-up mammogram in 1 year, self breast exams at least once per month and clinical breast exam at least once per year. Of note, benign findings should not deter biopsy in the setting of a palpable abnormality. The false negative rate of mammography is approximately 10%. CODE: 1-NEGATIVE Appropriate letter sent. Full field digital mammography is used and Computer Aided Detection is performed on the digital mammogram images. Radha Bosch(R), R.TEvette(R)(M) IMG B I PROCEDURES * Pathology MANAGER ZONE Cytology (03/30/2013 12:00 AM EQUIPMENT MAINTENANCE SUPERINTENDENT) 03/30/2013 Narrative [facility] - 04/04/2013 1:28 PM EQUIPMENT MAINTENANCE SUPERINTENDENT [facility] in [address] [place], [place] ??[phone] Patient Name: DEBORA RUBY Collected: 03/30/2013 Address: [facility]/State/Zip: [address], [place] ??[id number] Received: Reported: 03/31/2013 04/04/2013 Soc. Sec. #: ?/Age/Sex 1970 (Age: 42) ??F Physician(s): NJ FOREMAN MD Copy To: ? [facility] ??[phone] [facility], ??[place] ??[address] CYTOPATHOLOGY MANAGER ZONE REPORT FINAL CYTOLOGIC DIAGNOSIS Pap Smear, Vagina - ThinPrep: NEGATIVE FOR INTRAEPITHELIAL LESION OR MALIGNANCY MODERATE INFLAMMATION. ENDOCERVICAL CELLS/COMPONENT PRESENT. SATISFACTORY SPECIMEN FOR EVALUATION. Electronically Signed Out By ajw/04/04/2013 ROXI Wawrzynaik JENNIFER(ASCP) The Pap test is a screening procedure and, as such, is subject to both false positive and false negative results as evidenced by published data. ??It is not a diagnostic test and results should be interpreted in the context of the patient's history and other clinical findings. ??Obtaining periodic Pap tests may help to minimize the consequences of any false negatives that may occur. SPECIMEN(S) RECEIVED: Pap Smear, Vagina - ThinPrep CLINICAL HISTORY: Date of Last PAP: 2006 Other Clinical Conditions: HPV TYPING REQUESTED: IF ASCUS Rachel Foreman M.D. LAB PAP REGATH D[place] EL [facility] Organization Address City/State/ZIP Co de Phone Number [facility] LAB from Last 3 Months or Most Recently Relevant to Health Maintenance Additional Health Concerns Infection Onset Date Last Indicated Protective Environment 01/07/2023 3 Care Teams Crop Quantitative Geneticist Relationship Specialty Start Date End Date Jessica Schulz APRN, C.N.P., D.N.P. [address] [place] [phone] [facility] - General 12/12/20
--- OUTSIDE RECORDS SUMMARY | 2023-10-06 12:41 | XMS_ITS | Referral Summary ---
Author Name Unknown Organization [facility] Address [address] [place] [address] Care Team Providers Care Technology Integration Specialist Name Role Phone Jessica Schulz APRN, C.N.P., D.N.P. Primary C are Provider Source Comments Patient records contain information from all sites at [facility]. For routine questions regarding patient records, call [phone] during business hours, M-F 8:00 AM - 5:00 PM Central Time. Record requests for emergency care only can be directed to [phone] at any time.[facility] Encounters Date Type Department Care Team Description 09/15/2023 Clinical Communication Department of Family Medicine, [facility], in [place], [place] [address] [place] [phone] Jessica Schulz APRN, C.N.P., D.N.P. Health Maintenance 09/08/2023 Clinical Communication Department of Family Medicine, [facility], in [place], [place] [address], [place] [address] Jessica Schulz APRN, C.N.P., D.N.P. Health Maintenance 08/24/2023 Orders Only [facility] PCP [facility] MNT Jessica Schulz APRN, C.N.P., D.N.P. Screening Examination Diabetes Mellitus; Screening Lipid; Screening Mammogram Breast Cancer 08/19/2023 Refill Department of Family Medicine, [facility], in [address] [phone] Jessica Schulz APRN, C.N.Mee, D.N.P. Med Refill 08/11/2023 Clinical Communication Department of Radiation Oncology in [address] [phone] Sarai Yoon P.A.-C., M.S. 08/06/2023 3:30 PM CDT Office Visit Department of Family Medicine, [facility], in [address] [phone] Jessica Schulz APRN, C.N.P., D.N.P. Effusion Ear Middle Bilateral (Primary Dx); Tenderness Epigastric 07/27/2023 9:00 AM [facility] Clinical Communication Virtual Review in [address] [phone] 07/13/2023 Clinical Communication Department of Radiation Oncology in [address] [phone] Abisai Ortega M.D. from Last 3 Months Allergies No known active allergies Medications Medication [...] SARS-COV-2 (COVID-19) - MODERNA(Discontinued) ,01/17/2021 Tdap 03/30/2013 Social History Tobacco Use Types Packs/Day Years Used Date Smoking Tobacco: Former Cigarettes 1 23 1 992 - 2014 Smokeless Tobacco: Never Tobacco Cessation:Counseling Given: [...] and Family Once a week 12/08/2018 Attends Voodoo Services 1 to 4 times per year [...] Answer Date Recorded PHQ-2 Score 0 06/22/2023 [facility] [place] of Occupat ional Health - Occupational Stress [...] Body Mass Index 37.63 06/23/2023 1:08 PM SUPPLY CONTROLLER Plan of Treatment Upcoming Encounters Date Type Department Care Team (Late st Contact Info) Description 10/19/2023 3:00 PM CDT Appointment Department of Radiation Oncology in [place], [place] [address] [place] [address] Abisai Ortega M.D. [address] [place] [address] Medical Devices Implanted Type Area Ear Machine Operator Device Identifier Shelf Expiration Date Model / [...] LIPID PANEL, S Routine 04/04/2013 7:24 AM SUPPLY CONTROLLER BI BREAST SCREENING BILATERAL Routine 03/30/2013 4:07 PM SUPPLY CONTROLLER PATHOLOGY MOTION PICTURE CAMERA LENS TECHNICIAN CYTOLOGY Routine 03/30/2013 12:00 AM SUPPLY CONTROLLER from Last 3 Months or Most Recently [...] Not In System IMG MRI PROCEDURE S Performing Organization Address City/[facility]/ZIP Co de Phone Number IINM NA * (ABNORMAL) Glucose, Fasting (09/07/2014 10:25 AM CDT) Last Intake 14 HR [facility] Glucose, P 101(H) 70 - 100 MG/DL [facility] 09/07/2014 10:2 5 AM CDT 09/07/2014 10:25 AM CDT Lonnie Moreland P.A.-C. LAB BLOOD NON ADD-ON Performing Organization Address [facility] Co de Phone Number [address] * (ABNORMAL) Lipid Panel (04/04/2013 7:24 AM SUPPLY CONTROLLER) Calculated LDL 141(H) 0 - 100 MGDL POWERCHART Total Cholesterol/HDL Ratio 5.23(H) 2.20 - 4.40 POWERCHART Cholesterol, Total 204(H) <=200 MGDL POWERCHART HX HDL 39(L) 40 - 60 MGDL POWERCHART Triglycerides 119 <=150 MGDL POWERCHART HXLDL/HDL 4 POWERCHART Blood 04/04/2013 7:24 AM SUPPLY CONTROLLER Rachel Foreman M.D. LAB BLOOD ADD-ON Performing Organization Address City/[facility] Co de Phone Number POWERCHART * BI Breast Screening Bilateral (03/30/2013 4:07 PM SUPPLY CONTROLLER) Anatomical Region Laterality Modality Breast Bilateral Mammography 03/30/2013 4:07 PM SUPPLY CONTROLLER Impressions 03/31/2013 10:19 AM SUPPLY CONTROLLER Recommendations: ??I recommend a follow-up mammogram in [...] digital mammogram images. Narrative 03/31/2013 10:19 AM SUPPLY CONTROLLER EXAM: MA Mammo Screening w/ CADD INDICATION: [...] R.TEvette(R)(M) IMG B I PROCEDURES * Pathology MOTION PICTURE CAMERA LENS TECHNICIAN Cytology (03/30/2013 12:00 AM SUPPLY CONTROLLER) 03/30/2013 Narrative [facility] - 04/04/2013 1:28 PM SUPPLY CONTROLLER [facility] in [address] [place], [place] ??[phone] Patient Name: DEBORA RUBY Collected: 03/30/2013 Address: [facility]/State/Zip: [address], [place] ??[id number] Received: Reported: 03/31/2013 04/04/2013 Soc. Sec. #: ?/Age/Sex 1970 (Age: 42) ??F Physician(s): NJ FOREMAN MD Copy To: ? [facility] ??[phone] [facility], ??[place] ??[address] CYTOPATHOLOGY MOTION PICTURE CAMERA LENS TECHNICIAN REPORT FINAL CYTOLOGIC DIAGNOSIS Pap Smear, Vagina - ThinPrep: NEGATIVE FOR INTRAEPITHELIAL LESION OR MALIGNANCY MODERATE INFLAMMATION. ENDOCERVICAL CELLS/COMPONENT PRESENT. SATISFACTORY SPECIMEN FOR EVALUATION. Electronically Signed Out By ajw/04/04/2013 ROXI RODRIGUEZ(ASCP) The Pap test is a screening [...] IF ASCUS Rachel Foreman M.D. LAB PAP [facility] LAB from Last 3 Months or Most Recently Relevant to Health Maintenance Additional Health Concerns Infection Onset Date Last Indicated Protective Environment 01/07/2023 3 Care Teams Technology Integration Specialist Relationship Specialty Start Date End Date Jessica Schulz APRN, C.N.P., D.N.P. [address] [facility] [place] [address] PCP - General 12/12/20
--- OUTSIDE RECORDS SUMMARY | 2023-10-06 12:41 | XMS_ITS ---
Author Name Unknown Organization [facility] Address [address] [place] [address] Care Team Providers Care Drywall Hanger Framer Name Role Phone SchulzJessica APRN, C.N.P., D.N.P. Primary C are Provider Active Problems Problem Noted Date Diagnosed Date [...] No past plan information found. Radiation Treatments * Plan Last Treated On Elapsed Days Fractions Treated Prescribed Fraction Dose Prescribed Total Dose [id number] 02/05/2023 4 3 of 3 900 cGy 2,700 cGy F1 L3-5 Spine 02/08/2019 6 5 of 5 400 cGy 2,000 cGy Reference Point Last Treated On Elapsed Days Session Dose Total Dose [id number] 02/05/2023 4 900 cGy 2,700 cGy [id number] 02/08/2019 6 400 cGy 2,000 cGy
--- OUTSIDE RECORDS SUMMARY | 2023-10-06 12:42 | XMS_ITS | Encounter Summary ---
Author Name Unknown Organization [facility] Address [address] [place] [address] Care Team Providers Care Small Boat Engineer Name Role Phone Jessica Schulz APRN C.N.P., D.N.P. Primary C are Provider Encounter Details Date Type Department Care Team (Late st Contact Info) Description 07/13/2023 Clinical Communication Department of Radiation Oncology in [place], [place] [address] [place] [phone] Abisai Ortega M.D. [address] [place] [phone] Social History Tobacco Use Types Packs/Day Years Used Date Smoking Tobacco: Former Cigarettes 2014 Smokeless Tobacco: Never Alcohol Use Standard [...] and Family Once a week 12/08/2018 Attends Sabianism Services 1 to 4 times per year [...] Answer Date Recorded PHQ-2 Score 0 [facility] Answer Date [...] your living situation today? I have a [place] place to live 01/08/2023 Education Answer [...] encounter Miscellaneous Notes * Telephone Encounter - Codie Chery - 07/13/2023 12:42 PM CST Patient called to reschedule her f/u on 07/29 because she is not having her scans done until 08/01. Looking at [facility]'s calendar his next available f/u is not until August 25. The patient said that she hasavailability on 08/10 which is his mgmt day. Could we add her on for 08/10 or is there a better time?Please advise. SMISSION REBUILDER documented in this encounter Plan of Treatment Upcoming Encounters Date Type Department Care Team (Late st Contact Info) Description 10/19/2023 3:00 PM CDT Appointment Department of Radiation Oncology in [place], [place] [address] [place] [address] Abisai Ortega M.D. [address] [place] [address] documented as of this encounter Visit Diagnoses Not on filedocumented in this encounter Additional Health Concerns Infection Onset Date Last Indicated Resolved Time Protective Environment 01/07/2023 01/07/2023 Assessment Noted Time PHQ-9 Depression Total Score: 13 08/27/2 019 8:17 AM CDT documented as of this encounter Care Teams Small Boat Engineer Relationship Specialty Start Date End Date Jessica Schulz APRN, C.N.P., D.N.P. [address] [place] [phone] PCP - General 12/12/20 documented as of this encounter
--- OUTSIDE RECORDS SUMMARY | 2023-10-06 12:42 | XMS_ITS | Encounter Summary ---
Author Name Unknown Organization [facility] Address [address] [place] [address] Care Team Providers Care Lead Sql Developer Name Role Phone Jessica Schulz APRN, C.N.P., D.N.P. Primary C are Provider Encounter Details Date Type Department Care Team (Latest Contact Info) Description 07/27/2023 9:00 AM SISAL OPERATOR Clinical Communication Virtual Review in [place], [place] [address] [place] [address] Social History Tobacco Use Types Packs/Day Years [...] and Family Once a week 12/08/2018 Attends Jehovah'S Witness Services 1 to 4 times per year [...] Answer Date Recorded PHQ-2 Score 0 06/22/2023 [facility] - Occupational Stress Questionnaire Answer Date Recorded [...] PM CDT documented as of this encounter Plan of Treatment Upcoming Encounters Date Type Department Care Team (Late st Contact Info) Description 10/19/2023 3:00 PM CDT Appointment Department of Radiation Oncology in [place], [place] [address] [place] [address] Abisai Ortega M.D. [address] [place] [address] documented as of this encounter Visit Diagnoses Not on filedocumented in this encounter Additional Health Concerns Infection Onset Date Last Indicated Resolved Time Protective Environment 01/07/2023 01/07/2023 Assessment Noted Time PHQ-9 Depression Total Score: 13 01/17/ 019 8:17 AM CDT documented as of this encounter Care Teams Lead Sql Developer Relationship Specialty Start Date End Date Jessica Schulz APRN, C.N.P., D.N.P. [address] [place] [phone] PCP - General 12/12/20 documented as of this encounter
--- OUTSIDE RECORDS SUMMARY | 2023-10-06 12:42 | XMS_ITS | Encounter Summary ---
Author Name Unknown Organization [facility] Address [address] [place] [address] Care Team Providers Care Broker Assistant Name Role Phone Jessica Schulz APRN, C.N.PEvette, D.N.P. Primary C are Provider Reason for Referral * Outpatient (Routine) - Authorized Specialty Diagnoses / Procedures Referred By Lito newberry Referred To Contact Family Medicine Jessica Schulz APRN, C.N.P., D.N.P. [address] [place] [address] [facility] Region Referral ID Status Reason Start Date Expiration Date V isits Requested Visits Authorized [id number] Authorized 08/24/2023 02/22/2025 1 1 * Outpatient (Routine) - Authorized Specialty Diagnoses / Procedures Referred By Lito newberry Referred To Contact Diagnoses Screening Mammogram Breast Cancer Procedures BI Breast Screening Bilateral with Tomosynthesis Jessica Schulz APRN, C.N.P., D.N.P. [address] [place] [address] [facility] Region Referral ID Status Reason Start Date Expiration Date V isits Requested Visits Authorized [id number] Authorized 08/24/2023 08/23/2024 1 1 Encounter Details Date Type Department Care Team (Late st Contact Info) Description 08/24/2023 Orders Only [facility] Jessica Schulz, PRATIK, C.N.P., D.N.P. [address] [place] [address] Screening Examination Diabetes Mellitus; Screening Lipid; Screening Mammogram Breast Cancer Social History Tobacco Use Types Packs/Day Years Used Date Smoking Tobacco: Former Cigarettes 1 2014 Smokeless Tobacco: Never Alcohol Use Standard [...] and Family Once a week 12/08/2018 Attends Jew Services 1 to 4 times per year [...] Answer Date Recorded PHQ-2 Score 0 06/22/2023 [facility] - Occupational Stress Questionnaire Answer Date Recorded [...] CDT Appointment Department of Radiation Oncology in [place], [place] [address] [place] [address] Abisai Ortega M.D. [address] [place] [address] Scheduled Orders Name Type Priority Associated Diagnoses Orde r Schedule Glucose, Fasting Lab Routine Screening Examination Diabetes Mellitus Expected: 09/07/2023, Expires: 02/20/2024 Lipid Panel Lab Routine Screening Lipid Expected: 09/07/2023, Expires: 02/20/2024 BI Breast Screening Bilateral with Tomosynthesis Imaging RAD - Routine (most inpatients and all outpatients) Screening Mammogram Breast Cancer Expected: 09/23/2023, Expires: 02/20/2024 Scheduled Referrals Name Type Priority Associated Diagnoses Orde r Schedule Family Medicine office visit (clinic) Outpatient Referral Routine Expected: 09/08/2023, Expires: 02/19/2025 documented as of this encounter Visit Diagnoses Diagnosis Screening Examination Diabetes Mellitus Screening Lipid Screening Mammogram Breast Cancer documented in this encounter Additional Health Concerns Infection Onset Date Last Indicated Resolved Time Protective Environment 01/07/2023 01/07/2023 Assessment Noted Time PHQ-9 Depression Total Score: 13 019 8:17 AM CDT documented as of this encounter Care Teams Broker Assistant Relationship Specialty Start Date End Date Jessica Schulz APRN, C.N.P., D.N.P. [address] [place] [address] PCP - General 12/12/20 documented as of this encounter
--- OUTSIDE RECORDS SUMMARY | 2023-10-06 12:42 | XMS_ITS | Encounter Summary ---
Author Name Unknown Organization [facility] Address [address] [place] [address] Care Team Providers Care Motor Runner Name Role Phone Jessica Schulz APRN, C.N.P., D.N.P. Primary C are Provider Encounter Details Date Type Department Care Team (Late st Contact Info) Description 06/25/2023 Clinical Communication Pharmacy Prior [facility] [phone] Hillary Henriquez Social History Tobacco Use Types Packs/Day Years [...] and Family Once a week 12/08/2018 Attends Gnosticism Services 1 to 4 times per year [...] Answer Date Recorded PHQ-2 Score 0 06/22/2023 [facility] - Occupational Stress Questionnaire Answer Date [...] CDT Appointment Department of Radiation Oncology in [place], [place] [address] [place] [address] Abisai Ortega M.D. [address] [place] [address] documented as of this encounter Visit Diagnoses Not on filedocumented in this encounter Additional Health Concerns Infection Onset Date Last Indicated Resolved Time Protective Environment 01/07/2023 01/07/2023 Assessment Noted Time PHQ-9 Depression Total Score: 13 019 8:17 AM CDT documented as of this encounter Care Teams Motor Runner Relationship Specialty Start Date End Date Jessica Schulz APRN, C.N.P., D.N.P. [address] [place] [address] PCP - General 12/12/20 documented as of this encounter
--- OUTSIDE RECORDS SUMMARY | 2023-10-06 12:42 | XMS_ITS | Encounter Summary ---
Author Name Unknown Organization [facility] Address [address] [place] [address] Care Team Providers Care Banking Pin Adjuster Name Role Phone Jessica Schulz APRN, C.N.P., D.N.P. Primary C are Provider Reason for Visit * Reason Comments Ear Fullness R ear fullness. Nast y taste in mouth yesterday. Wondering if it is infected. Ulcer Possible Ulcer diagn osis. Currently on medication for this but last night had a flare up of pain and is concerned. Encounter Details Date Type Department Care Team (Late st Contact Info) Description 08/06/2023 3:30 PM CDT Office Visit Department of Family Medicine, [facility], in [place], [place] [address] [address] Jessica Schulz APRN, C.N.P., D.N.P. [address] [address] Effusion Ear Middle Bilateral (Primary Dx); Tenderness Epigastric Social History Tobacco Use Types Packs/Day Years [...] and Family Once a week 12/08/2018 Attends Yarsani Services 1 to 4 times per year [...] Answer Date Recorded PHQ-2 Score 0 06/22/2023 [facility] - [facility]ational Stress Questionnaire Answer Date [...] your living situation today? I have a [facility] place to live 01/08/2023 [...] PM CDT documented as of this encounter Last Filed Vital Signs Vital Sign Reading Time Taken Comments Blood Pressure 125/88 08/06/2023 2:52 PM CDT Pulse 102 08/06/2023 3:23 PM CDT Temperature 36.2 ??C (97.1 ??F) 08/06/2023 2:52 PM CD T Respiratory Rate - - Oxygen Saturation - - Inhaled Oxygen Concentration - - Weight 102 kg (224 lb 3.3 oz) 08/06/2023 2:52 PM CDT Height - - Body Mass Index 37.63 06/23/2023 1:08 PM RAILROAD SIGNAL AND SWITCH OPERATOR documented in this encounter Patient Instructions * Patient Instructions* Jessica Schulz APRN, C.N.P., D.N.P. - 08/06/2023 3:30 PM CDT Sinus nasal rinses (netti pot) [facility] sinus rinse, once daily, then follow it with Nasal spray (fluticasone or Flonase) nasal spray. Going back to twice a day omeprazole for another 2 week and monitor symptoms. documented in this encounter Progress Notes * Jessica Schulz APRN, C.NCarlton, D.N.P. - 08/06/2023 3:30 PM CDT SUBJECTIVE CHIEF COMPLAINT/REASON FOR VISIT Debora Valdes is a 52 y.o. female who presents for evaluation of Ear Fullness (R ear fullness. Nasty taste in mouth yesterday. Wondering if it is infected. ) and Ulcer (Possible Ulcer diagnosis. Currently on medication for this but last night had a flare up of pain and is concerned. ). HISTORY OF PRESENT ILLNESS Patient is in to follow-up on possible ulcer medication as well as some ear fullness and nasty taste in her mouth. In regards to her epigastric pain she had been taking omeprazole 40 mg twice a day for a month without issue, she then started once a day dosing around Wednesday last week and last night she had an episode of this pain again. She states the epigastric pain was not as severe but the painin the back was full blown. She did not have any nausea or vomiting with this or any complaints of diarrhea. In regards to her ear she says her right ear does feel full and yesterday she had a nasty taste in her mouth that she wondered if it might be draining or infected. She does endorse previous upper respiratory illness about 3 weeks ago, but she denies any ear pain, fever, or chills. She has not currently feel sick or have complaints of sinus congestion. The following portions of the patient's history were reviewed and updated as appropriate: allergies, current medications, family history, medical history, social history, surgical history, and problem list. REVIEW OF SYSTEMS Pertinent review of systems negative except as per above OBJECTIVE VITAL SIGNS Blood pressure 125/88, pulse 102, temperature 36.2 ??C, temperature source Temporal, weight 102 kg. PHYSICAL EXAMINATION General: Alert and oriented x3. Appears in no acute distress. HEENT: Pupils equally round and reactive to light and accommodation. Extraocular movements are intact. Fundi examined and appear normal. Tympanic membranes are clear with bilateral your if effusions right worse than left. Right effusion is slightly cloudy. Oropharynx is free from any erythema or exudate. Neck: Supple without any lymphadenopathy. No thyromegaly. Nontender. Cardiovascular: Heart is regular rate and rhythm without any murmurs, rubs, or gallops. Respiratory: Lungs are clear to auscultation bilaterally. Gastrointestinal: The abdomen is soft, nontender, nondistended. Bowel sounds present in all quadrants. No hepatosplenomegaly. No masses appreciated. Musculoskeletal: No edema, 2+ peripheral pulses. ASSESSMENT / PLAN 1. Effusion Ear Middle Bilateral Discussed meal ear effusions with patient and this is likely due to previous upper respiratory infection. Discussed if symptoms worsening or she develops pain or fevers to follow back up to evaluate for progression to otitis media. Otherwise recommend Sinus nasal rinses (netti pot), Murray [facility] sinus rinse, once daily, then follow it with Nasal spray (fluticasone or Flonase) nasal spray. 2. Tenderness Epigastric She did have routine CT scan for metastatic cancer in she noted it did mention some gallstones. Discussed with patient that is difficult to assess if there is some biliary colic or potential relationto gallstones versus possible ulcer or gastritis. Since she did not have an episode until she decreased her dose, recommend increasing back up to full dose for another 2 weeks and monitoring symptoms. After 2 weeks decrease back down to once a day dosing and if she once again has symptoms then she should notify me and will try alternative medication, to try an titrate her down. Questions answered. Patient expresses verbal understanding and agrees with plan of care. Jessica Schulz APRN, C.N.P., D.N.P. documented in this encounter Plan of Treatment Upcoming Encounters Date Type Department Care Team (Late st Contact Info) Description 10/19/2023 3:00 PM CDT Appointment Department of Radiation Oncology in [address] [address] Abisai Ortega M.D. [address] [place] [address] documented as of this encounter Visit Diagnoses Diagnosis Effusion Ear Middle Bilateral- Primary Tenderness Epigastric documented in this encounter Additional Health Concerns Infection Onset Date Last Indicated Resolved Time Protective Environment 01/07/2023 01/07/2023 Assessment Noted Time PHQ-9 Depression Total Score: 13 019 8:17 AM CDT documented as of this encounter Care Teams Banking Pin Adjuster Relationship Specialty Start Date End Date Jessica Schulz APRN, C.N.P., D.N.P. [address] [place] [address] PCP - General 12/12/20 documented as of this encounter
--- OUTSIDE RECORDS SUMMARY | 2023-10-06 12:42 | XMS_ITS | Encounter Summary ---
Author Name Unknown Organization [facility] Address [address] [place] [address] Care Team Providers Care Turf Grower Name Role Phone Jessica Schulz APRN, C.N.P., D.N.P. Primary C are Provider Reason for Visit * Reason Comments Med Refill Encounter Details Date Type Department Care Team (Late st Contact Info) Description 08/19/2023 Refill Department of Family Medicine, [facility], in [place], [place] [address] [place] [address] Jessica Schulz APRN, C.N.P., D.N.P. [address] [place] [address] Med Refill Social History Tobacco Use Types Packs/Day Years Used Date Smoking Tobacco: Former Cigarettes 1 - 2014 Smokeless Tobacco: Never Alcohol [...] and Family Once a week 12/08/2018 Attends Buddhism Services 1 to 4 times per year [...] Answer Date Recorded PHQ-2 Score 0 06/22/2023 [facility] - Occupational [...] your living situation today? I have a [facility] place to live 01/08/2023 Education Answer Date [...] CDT Appointment Department of Radiation Oncology in [place], [place] [address] [place] [address] Abisai Ortega M.D. [address] [place] [address] documented as of this encounter Visit Diagnoses Diagnosis Tenderness Epigastric documented in this encounter Additional Health Concerns Infection Onset Date Last Indicated Resolved Time Protective Environment 01/07/2023 01/07/2023 Assessment Noted Time PHQ-9 Depression Total Score: 13 019 8:17 AM CDT documented as of this encounter Care Teams Turf Grower Relationship Specialty Start Date End Date Jessica Schulz APRN, C.N.P., D.N.P. [address] [place] [address] PCP - General 12/12/20 documented as of this encounter
--- OUTSIDE RECORDS SUMMARY | 2023-10-06 12:42 | XMS_ITS | Encounter Summary ---
Author Name Unknown Organization [facility] Address [address] [place] [address] Care Team Providers Care Paperhanger Contractor Name Role Phone Jessica Schulz APRN C.N.P., D.N.P. Primary C are Provider Reason for Referral * Outpatient (Routine) - Authorized Specialty Diagnoses / Procedures Referred By Lito newberry Referred To Contact Radiation Oncology Abisai Ortega M.D. [address] [place] [phone] Abisai Ortega M.D. [address] [place] [address] Referral ID Status Reason Start Date Expiration Date V isits Requested Visits Authorized [id number] Authorized 08/11/2023 02/09/2025 1 1 Scheduling Instructions Please schedule 1-2 days after brain MRI at [facility]. Please get images and report prior to visit. * MRI/CAT/PET Scan (Routine) - Pending Review Specialty Diagnoses / Procedures Referred By Lito newberry Referred To Contact Radiology Diagnoses Secondary Malignant Neoplasm Brain (HCC) Procedures MR Brain without and with IV Contrast Abisai Ortega M.D. [address] [place] [phone] [facility] [place] [facility] Referral ID Status Reason Start Date Expiration Date V isits Requested Visits Authorized [id number] Pending Review 08/11/2023 08/10/2024 1 1 Encounter Details Date Type Department Care Team (Late st Contact Info) Description 08/11/2023 Clinical Communication Department of Radiation Oncology in [place], [place] [address] [place] [phone] Sarai Yoon P.A.-C., M.S. [address] [place] [address] Social History Tobacco Use Types Packs/Day Years [...] and Family Once a week 12/08/2018 Attends Worship Services 1 to 4 times per year [...] 0 06/22/2023 [facility] - Occupational Stress Questionnaire Answer Date Recorded [...] your living situation today? [facility] 01/08/2023 Education Answer Date [...] encounter Miscellaneous Notes * Telephone Encounter - Sarai Yoon P.A.-C., M.S. - 08/11/2023 3:20 PM CDT I called the patient today at the request of Dr. Ortega. The patient just had a visit with Dr. Townsend following her recent imaging and Dr. Townsend and Dr. Ortega discussed the patient's case. Theyagreed with repeating a brain MRI in [address] Ortega offered to cancel the patient's visit for tomorrow, unless she wanted to keep it. I reviewed this with the patient. She was in agreement with canceling her scheduled visit for tomorrow. We will order for a planning and diagnostic [facility] followed by a return visit here 1-2 days after the imaging to review the result. The patient will contact us sooner with questions or concerns. Sarai Yoon P.A.-C., M.S. documented in this encounter Plan of Treatment Upcoming Encounters Date Type Department Care Team (Late st Contact Info) Description 10/19/2023 3:00 PM CDT Appointment Department of Radiation Oncology in [place], [place] [address] [place] [address] Abisai Ortega M.D. [address] [place] [address] Scheduled Orders Name Type Priority Associated Diagnoses Orde r Schedule MR Brain without and with IV Contrast Imaging RAD - Routine (most inpatients and all outpatients) Secondary Malignant Neoplasm Brain (HCC) Expected: 10/11/2023, Expires: 11/10/2024 Scheduled Referrals Name Type Priority Associated Diagnoses Orde r Schedule Radiation Oncology office visit (clinic) Outpatient Referral Routine Expected: 10/12/2023, Expires: 11/10/2024 documented as of this encounter Visit Diagnoses Diagnosis Secondary Malignant Neoplasm Brain (HCC)- Primary documented in this encounter Additional Health Concerns Infection Onset Date Last Indicated Resolved Time Protective Environment 01/07/2023 01/07/2023 Assessment Noted Time PHQ-9 Depression Total Score: 13 01/17/ 019 8:17 AM CDT documented as of this encounter Care Teams Paperhanger Contractor Relationship Specialty Start Date End Date Jessica Schulz APRN, C.N.P., D.N.P. [address] [place] [phone] PCP - General 12/12/20 documented as of this encounter
--- OUTSIDE RECORDS SUMMARY | 2023-10-06 12:42 | XMS_ITS | Encounter Summary ---
Author Name Unknown Organization [facility] Address [address] [place] [address] Care Team Providers Care Grocery Clerk Checking Name Role Phone Jessica Schulz APRN, C.N.P., D.N.P. Primary C are Provider Reason for Visit * Reason Comments Med Refill Encounter Details Date Type Department Care Team (Late st Contact Info) Description 06/04/2023 Refill Department of Oncology in [place], [place] [address] [place] [address] Nhan Rothman M.D. [address] [place] [phone] Med Refill Social History Tobacco Use Types [...] and Family Once a week 12/08/2018 Attends Taoist Services 1 to 4 times per year [...] Answer Date Recorded PHQ-2 Score 0 06/22/2023 [facility]ational Stress Questionnaire Answer [...] CDT Appointment Department of Radiation Oncology in [place], [place] [address] [place] [address] Abisai Ortega M.D. [address] [place] [address] documented as of this encounter Visit Diagnoses Not on filedocumented in this encounter Additional Health Concerns Infection Onset Date Last Indicated Resolved Time Protective Environment 01/07/2023 01/07/2023 Assessment Noted Time PHQ-9 Depression Total Score: 13 019 8:17 AM CDT documented as of this encounter Care Teams Grocery Clerk Checking Relationship Specialty Start Date End Date Jessica Schulz APRN, C.N.P., D.N.P. [address] [place] [phone] PCP - General 12/12/20 documented as of this encounter
--- OUTSIDE RECORDS SUMMARY | 2023-10-06 12:42 | XMS_ITS | Clinical Summary ---
Author Name Unknown Organization [facility] Address [place], [place] [address] Care Team Providers Care Insurance Assistant Name Role Phone Rachel Gomez MD Primary Care Provider [phone] Allergies No known active allergies Active Problems Problem Noted Date Diagnosed Date Non-small cell lung cancer Social History Tobacco Use Types Packs/Day Years Used Date Smoking Tobacco: Never Assessed Sex and Gender Information Value Date Recorded Sex Assigned at Not on file Gender Identity Not on file Sexual Orientation Not on file Plan of Treatment Health Maintenance Due Date Last Done Comments Tdap 09/29/1982 Depression screening for age 12+ 1983 HIV for age 15-65 09/29/1986 BMI (ht and wt on same day) for age 18+ 09/29/1989 Hepatitis C screening for ag e 18-79 09/29/1989 Tetanus booster 1991 Pap test for age 21-65 09/29/1992 Colonoscopy through age 75 09/29/2016 Lipids for age 45-75 09/29/2016 Mammogram for age 45-75 09/29/2016 Zoster (shingles) series for age 50+ (1 of 2) 09/29/2021 COVID-19 vaccine series ( - 2022-24 season) 2023 Influenza for age 50-64 01/23/2024 Pneumococcal series for age 6-64 Aged Out No longer eligible based on patient's age to complete this topic Care Teams Insurance Assistant Relationship Specialty Start Date End Date Rachel Gomez MD PCP - General Family Practice 09/05/14
--- NOTE | 2023-10-06 13:00 | MR_ITS ---
Patient: SONNY RUBY Facility:?[facility] Patient ID:?[id number] Site Patient ID:?[id number]. Site :?[id number] Study:?MRI-Head W/ and W/O Cont 20 CC DOATERM-10/06/2023 2:32:07 PM Ordering Physician:?LESLIE VERONICA Final Report: Indication: Metastases follow-up. Technique: Multiplanar, multisequence MRI of the brain was performed without and with intravenous contrast. Contrast: 20 cc Dotarem. Comparison: MR brain 08/02/2023. Findings: There are multiple intracranial enhancing metastatic foci which are categorized on series 15. 1. Right superior frontal gyrus stable measuring 2 mm. Image 24. 2. Right anterior frontal lobe, stable measuring 4 mm. Image 42. 3. Right middle frontal gyrus, stable measuring 2 mm. Image 51. 4. Right caudate nucleus, stable measuring 3 mm. Image 69. 5. Right anterior inferior frontal lobe, slightly enlarged now measuring 4 mm, previously 3 mm. Image 79 Previously noted possible lesion within the left frontal lobe is not identified on this examination and has either improved or was artifactual. The corpus callosum, pituitary gland clivus appear intact. Craniocervical junction is preserved. There is no restricted diffusion. No intracranial hemorrhage. The ventricles are proportionate to the cerebral sulci. The 4th ventricle appears midline. The basal cisterns appear patent. No abnormal extra-axial fluid collection identified. Mild chronic ischemic microvascular disease. Major intracranial vascular flow voids appear grossly intact. Both globes are preserved. Impression: 1. Slight enlargement of a previously noted right anterior inferior frontal lobe metastatic focus. 2. Previously noted apparent left frontal lobe metastatic focus is not visualized on this examination and is either improved or was artifactual. 3. Otherwise remaining intracranial metastatic foci appear stable. 4. No new metastatic focus identified. Dictated by Elgin Uribe MD @ 10/08/2023 10:03:11 AM Signed by:?Elgin Uribe MD @10/08/2023 10:03:11 AM (Electronic Signature)
== END 2023-10-06 12:39 | disposition home or self-care (01) ==
LOC: MRI 12:39
PROVIDERS: Visit Provider Internal Medicine
DX: C79.31 Secondary malignant neoplasm of brain (principal)
CPT/HCPCS: 36415; 70553; 80053; 85025; A9575

== ENCOUNTER 2023-10-06 13:30 | Outpatient (RCR) | payer BC, SELFPAY ==
[2023-04-12 15:10] LABS: Basophils Absolute Auto 0.04 K/uL (0.00-0.30); Basophils Percent Auto 0.7 % (0.0-3.0); Eosinophils Absolute Auto 0.11 K/uL (0.00-0.50); Eosinophils Percent Auto 1.8 % (0.0-7.0); Hematocrit 38.3 % (33.0-51.0); Immature Granulocytes Abs Auto 0.02 K/uL (0.00-0.30); Immature Granulocytes Pct Auto 0.3 %; Lymphocytes Absolute Auto 1.47 K/uL (0.90-2.90); Lymphocytes Percent Auto 24.6 % (20-44); Mean Corpuscular HGB Conc 34 gm/dL (32-36); Mean Corpuscular Hemoglobin 32 pg (26-34); Mean Corpuscular Volume 93 fL (80-100); Monocytes Percent Auto 5.4 % (0.0-11.0); Neutrophils Absolute Auto 4.01 K/uL (1.7-7.0); Neutrophils Percent Auto 67.2 % (42.0-72.0); Platelet Count* 225 K/uL (140-440); RDW Coefficient of Variation % 12.6 % (11.5-15.5); Red Blood Count 4.12 m/uL (4.00-5.20); White Blood Count* 5.97 K/uL (4.50-11.00)
[2023-04-12 15:19] LABS: Slide Review Reflex No
[2023-04-12 15:29] LABS: Albumin* 4.5 g/dL (3.3-5.0); Chloride* 102 mmol/L (96-114); Potassium* 3.7 mmol/L (3.6-5.1); Sodium* 141 mmol/L (135-149)
[2023-04-12 15:31] LABS: Bilirubin Total* 1.2 mg/dL (0.1-1.5); Creatinine* 0.7 mg/dL (0.5-1.5); Estimated Glomerular Filt Rate 105 ml/min
[2023-04-12 15:32] LABS: Alanine Aminotransferase* 21 U/L (4-35); Alkaline Phosphatase* 130 U/L (40-150); Anion Gap 10 mEq/L (7-15); Aspartate Amino Transferase* 26 U/L (12-35); Blood Urea Nitrogen* 15 mg/dL (7-30); Calcium* 9.3 mg/dL (8.4-10.6); Carbon Dioxide* 29 mmol/L (20-32); Glucose* 100 mg/dL (60-115); Total Protein* 7.6 g/dL (6.0-8.3)
[2023-05-10 15:32] LABS: Basophils Absolute Auto 0.04 K/uL (0.00-0.30); Basophils Percent Auto 0.5 % (0.0-3.0); Eosinophils Absolute Auto 0.13 K/uL (0.00-0.50); Eosinophils Percent Auto 1.7 % (0.0-7.0); Hematocrit 40.8 % (33.0-51.0); Hemoglobin* 13.8 gm/dL (12.0-16.0); Immature Granulocytes Abs Auto 0.01 K/uL (0.00-0.30); Immature Granulocytes Pct Auto 0.1 %; Lymphocytes Absolute Auto 1.66 K/uL (0.90-2.90); Lymphocytes Percent Auto 21.6 % (20-44); Mean Corpuscular HGB Conc 34 gm/dL (32-36); Mean Corpuscular Hemoglobin 31 pg (26-34); Mean Corpuscular Volume 92 fL (80-100); Monocytes Percent Auto 5.5 % (0.0-11.0); Neutrophils Absolute Auto 5.44 K/uL (1.7-7.0); Neutrophils Percent Auto 70.6 % (42.0-72.0); Platelet Count* 238 K/uL (140-440); Red Blood Count 4.42 m/uL (4.00-5.20)
[2023-05-10 15:33] LABS: Slide Review Reflex No
[2023-05-10 15:45] LABS: Albumin* 4.7 g/dL (3.3-5.0); Chloride* 101 mmol/L (96-114); Potassium* 3.5 mmol/L (3.6-5.1); Sodium* 138 mmol/L (135-149)
[2023-05-10 15:47] LABS: Creatinine* 0.8 mg/dL (0.5-1.5); Estimated Glomerular Filt Rate 89 ml/min
[2023-05-10 15:48] LABS: Alanine Aminotransferase* 17 U/L (4-35); Alkaline Phosphatase* 117 U/L (40-150); Anion Gap 9 mEq/L (7-15); Aspartate Amino Transferase* 23 U/L (12-35); Bilirubin Total* 1.1 mg/dL (0.1-1.5); Blood Urea Nitrogen* 19 mg/dL (7-30); Calcium* 9.4 mg/dL (8.4-10.6); Carbon Dioxide* 28 mmol/L (20-32); Glucose* 95 mg/dL (60-115); Total Protein* 8.1 g/dL (6.0-8.3)
--- NOTE | 2023-05-13 11:32 | ONC.NURNOTE ---
Covid Positive Received call from pt notifying us she began symptoms Tues 05/11 am and tested positive for Covid 05/11 evening. She is following at the [facility] and is requesting her labs drawn 05/10 be sent to that team to determine Covid treatment plan. Page Makeup System Operator called [facility]; [phone]. Communicated EGFR; pt to upload labs via portal.
--- NOTE | 2023-06-04 16:04 | ONC.NURNOTE ---
Addendum entered by Claribel Hickey RN 06/17/23 12:33: TRACIE approved for Alecensa 150 mg caps 06/05/23-06/05/24 TRACIE # TRACIE [id number] Original Note: TRACIE Jiang submitted on covermymeds [employer] 150 mg caps- 600mg BID #240/30day
--- NOTE | 2023-07-29 13:36 | ONC.NURNOTE ---
TRACIE submitted for Alecensa via [employer]- patient has new insurance
[2023-08-11 14:42] LABS: Basophils Absolute Auto 0.03 K/uL (0.00-0.30); Basophils Percent Auto 0.4 % (0.0-3.0); Eosinophils Absolute Auto 0.15 K/uL (0.00-0.50); Eosinophils Percent Auto 1.8 % (0.0-7.0); Hematocrit 42.2 % (33.0-51.0); Hemoglobin* 14.3 gm/dL (12.0-16.0); Immature Granulocytes Abs Auto 0.06 K/uL (0.00-0.30); Immature Granulocytes Pct Auto 0.7 %; Lymphocytes Absolute Auto 1.77 K/uL (0.90-2.90); Lymphocytes Percent Auto 20.8 % (20-44); Mean Corpuscular HGB Conc 34 gm/dL (32-36); Mean Corpuscular Hemoglobin 31 pg (26-34); Mean Corpuscular Volume 91 fL (80-100); Monocytes Percent Auto 5.3 % (0.0-11.0); Neutrophils Absolute Auto 6.07 K/uL (1.7-7.0); Platelet Count* 231 K/uL (140-440); RDW Coefficient of Variation % 11.9 % (11.5-15.5); Red Blood Count 4.66 m/uL (4.00-5.20); White Blood Count* 8.53 K/uL (4.50-11.00)
[2023-08-11 14:49] LABS: Slide Review Reflex No
[2023-08-11 15:04] LABS: Albumin* 4.8 g/dL (3.3-5.0); Chloride* 101 mmol/L (96-114)
[2023-08-11 15:05] LABS: Potassium* 3.9 mmol/L (3.6-5.1); Sodium* 139 mmol/L (135-149)
[2023-08-11 15:07] LABS: Alkaline Phosphatase* 97 U/L (40-150); Anion Gap 8 mEq/L (7-15); Aspartate Amino Transferase* 19 U/L (12-35); Bilirubin Total* 0.8 mg/dL (0.1-1.5); Carbon Dioxide* 30 mmol/L (20-32); Creatinine* 0.8 mg/dL (0.5-1.5); Estimated Glomerular Filt Rate 89 ml/min; Total Protein* 8.3 g/dL (6.0-8.3)
[2023-08-11 15:08] LABS: Alanine Aminotransferase* 30 U/L (4-35); Blood Urea Nitrogen* 19 mg/dL (7-30); Glucose* 111 mg/dL (60-115)
--- NOTE | 2023-08-18 11:08 | ONC.NURNOTE ---
Addendum entered by Claribel Hickey RN 08/25/23 11:03: Per [facility]- They will ship out Alencensa today- they are waiting for it to be delivered to their pharmacy- and expect Evelin to receive by tomorrow Addendum entered by Claribel Hickey RN 08/24/23 08:54: RX set up for delivery by [facility] 4 or more times and has been canceled each time the night before dispensing the medication There have been a variety of non insurance related barriers with in the administrative processing of Rx at [facility] Evelin has been out of her medication for a week now On Wednesday afternoon fax from [facility] indicated that her insurance requires the RX to come from [facility] Specialty Evelin has spoke with her insurance company multiple times to address the many barriers to the dispensing of drug Evelin insurance says there are no Specialty Pharmacy preferences and she may fill at any- Alectinib has been filled at [facility] for years On Wednesday this display card writer contacted [facility] and they are able to dispense alectinib to Evelin Dr [facility] sent an ERx yesterday Today they just need to talk to Evelin to set up delivery Evelin has been informed and provided phone #'s Will cancel Rx at [facility] once patient receives her medication from [facility] Addendum entered by Claribel Hickey RN 08/19/23 09:05: 40 min call to [facility] yesterday afternoon to push resolution of rx delay shipment PID needed to be completed by pharmacy team- this was not an insurance delay- it was an administrative barrier at [facility] today patient was able to schedule delivery for tomorrow Original Note: Patient called to report that she has been calling [facility] and [facility] daily and has not been able to get her Alencesa shipped out [employer] says it is clearing insurance and [facility] is canceling order multiple times over- unknown as to why Evelin has been working on this for a month will check on option for changing Specialty Pharmacies
[2023-10-06 14:10] LABS: Basophils Absolute Auto 0.03 K/uL (0.00-0.30); Basophils Percent Auto 0.4 % (0.0-3.0); Eosinophils Absolute Auto 0.19 K/uL (0.00-0.50); Eosinophils Percent Auto 2.6 % (0.0-7.0); Hematocrit 39.5 % (33.0-51.0); Hemoglobin* 13.2 gm/dL (12.0-16.0); Immature Granulocytes Abs Auto 0.02 K/uL (0.00-0.30); Immature Granulocytes Pct Auto 0.3 %; Lymphocytes Absolute Auto 1.98 K/uL (0.90-2.90); Lymphocytes Percent Auto 27.2 % (20-44); Mean Corpuscular HGB Conc 33 gm/dL (32-36); Mean Corpuscular Hemoglobin 31 pg (26-34); Mean Corpuscular Volume 91 fL (80-100); Monocytes Percent Auto 5.2 % (0.0-11.0); Neutrophils Absolute Auto 4.68 K/uL (1.7-7.0); Neutrophils Percent Auto 64.3 % (42.0-72.0); Platelet Count* 211 K/uL (140-440); RDW Coefficient of Variation % 12.8 % (11.5-15.5); Red Blood Count 4.32 m/uL (4.00-5.20); White Blood Count* 7.28 K/uL (4.50-11.00)
[2023-10-06 14:13] LABS: Slide Review Reflex No
[2023-10-06 14:26] LABS: Albumin* 4.3 g/dL (3.3-5.0); Chloride* 105 mmol/L (96-114); Potassium* 3.9 mmol/L (3.6-5.1); Sodium* 140 mmol/L (135-149)
[2023-10-06 14:28] LABS: Creatinine* 0.8 mg/dL (0.5-1.5); Estimated Glomerular Filt Rate 89 ml/min
[2023-10-06 14:29] LABS: Alanine Aminotransferase* 20 U/L (4-35); Alkaline Phosphatase* 139 U/L (40-150); Anion Gap 5 mEq/L (7-15); Aspartate Amino Transferase* 26 U/L (12-35); Bilirubin Total* 1.2 mg/dL (0.1-1.5); Blood Urea Nitrogen* 22 mg/dL (7-30); Carbon Dioxide* 30 mmol/L (20-32); Glucose* 95 mg/dL (60-115); Total Protein* 7.5 g/dL (6.0-8.3)
[2023-10-06 14:30] LABS: Calcium* 9.2 mg/dL (8.4-10.6)
== END 2023-10-09 23:59 | disposition home or self-care (01) ==
LOC: CCIC 13:30
PROVIDERS: Visit Provider Internal Medicine Hematology & Oncology
DX: C34.91 Malignant neoplasm of unspecified part of right bronchus or lung (principal)
CPT/HCPCS: 36415; 70553; 80053; 85025; 99212; 99214; 99215; G0463; A9575

== ENCOUNTER 2023-11-15 14:28 | Outpatient (CLI) | payer BC, SELFPAY ==
--- OUTSIDE RECORDS SUMMARY | 2023-11-15 14:30 | XMS_ITS | Referral Summary ---
Author Organization [facility] Address [address] [place] [address] Care Team Providers Care Meat Boner Name Role Phone Jessica Schulz APRN, C.N.PEvette, D.N.P. Primary C are Provider Source Comments Patient records contain information from all sites at [facility]. For routine questions regarding patient records, call [phone] during business hours, M-F 8:00 AM - 5:00 PM Central Time. Record requests for emergency care only can be directed to [phone] at any time.[facility] Encounters Date Type Department Care Team Description 11/02/2023 Orders Only [facility] [address] [place] [phone] Jessica Schulz APRN, C.N.P., D.N.P. Screening Cancer Colon 10/19/2023 2:31 PM CDT - 10/19/2023 3:33 PM CDT Hospital Encounter Department of Radiation Oncology in [place], [place] [address] [place] [address] Abisai Ortega M.D. Malignant Neoplasm Of Lung Adenocarcinoma Right (HCC) (Primary Dx); Secondary Malignant Neoplasm Brain (HCC) 09/15/2023 Clinical Communication Department of Family Medicine, [facility], in [place], [place] [address] [place] [address] Jessica Schulz APRN, C.N.PEvette, D.N.P. Health Maintenance 09/08/2023 Clinical Communication Department of Family Medicine, [facility], in [place], [place] [address] [place] [phone] Jessica Schulz APRN, C.N.P., D.N.P. Health Maintenance 08/24/2023 Orders Only [facility] PCP [facility] MNT Jessica Schulz APRN, C.N.P., D.N.P. Screening Examination Diabetes Mellitus; Screening Lipid; Screening Mammogram Breast Cancer 08/19/2023 Refill Department of [facility], [facility], in [place], [place] [address] [address] Jessica Schulz APRN, C.N.P., D.N.P. Med Refill from Last 3 Months Allergies No known [...] morning before breakfast. 30 capsule 08/23/2023 Active Additional Information Patient taking differently: 20 mgoral Daily before breakfast, Reported on 10/19/2023 Active Problems Problem Noted Date Diagnosed Date [...] Smoking Tobacco: Former Cigarettes 1 23 1 2 - 2014 Smokeless Tobacco: Never Tobacco Cessation:Counseling [...] and Family Once a week 12/08/2018 Attends Quaker Services 1 to 4 times per year [...] Answer Date Recorded PHQ-2 Score 0 06/22/2023 [facility] of Occupat ional Health - [...] living situation today? I have a [facility] place to live 01/08/2023 Education Answer [...] Sign Reading Time Taken Comments Blood Pressure 125/77 10/19/2023 2:46 PM CDT Pulse 84 10/19/2023 2:46 PM CDT Temperature 36.3 ??C (97.3 ??F) 10/19/2023 2:46 PM CD T Respiratory Rate 18 12/04/2018 8:14 AM CDT Oxygen Saturation - - Inhaled Oxygen Concentration - - Weight 102 kg (225 lb 15.5 oz) 10/19/2023 2:46 P M CDT Height 164.4 cm (5' 4.72) 06/23/2023 1:08 PM CS T Body Mass Index 37.92 06/23/2023 1:08 PM PANTS BUSHELER Plan of Treatment Upcoming Encounters Date Type Department Care Team (Late st Contact Info) Description 11/16/2023 Orders Only [facility] [address] [place] [address] Jessica Schulz, PRATIK, C.N.P., D.N.P. [address] [place] [address] Screening Cancer Colon 01/26/2024 1:30 PM CDT Appointment Department of Radiation Oncology in [place], [place] [address] [place] [address] Abisai Ortega M.D. [address] [place] [address] Medical Devices Implanted Type Area Systems Support Officer Device Identifier Shelf Expiration Date Model / Serial / Lot Conversions - Default Historical Implant Device Implanted:05/2009 (Quantity not on file) Intrauterine Device Other/Legacy - See Implant Description Description:Device Status Te xt - IUD.Mirena Procedures Procedure Name Priority Date/Time Associated Diagnosis Comments OUTSIDE MR NEURO Routine 10/06/2023 1:15 PM CDT GLUCOSE, FASTING, S/P Routine 09/07/2014 10:25 AM CDT LIPID PANEL, S Routine 04/04/2013 7:24 AM PANTS BUSHELER BI BREAST SCREENING BILATERAL Routine 03/30/2013 4:07 PM PANTS BUSHELER PATHOLOGY TAX DIRECTOR CYTOLOGY Routine 03/30/2013 12:00 AM PANTS BUSHELER from Last 3 Months or Most Recently Relevant to Health Maintenance Results * MR head/brain wo/w con-Outside MR Neuro (10/06/2023 1:15 PM CDT) Narrative IIMS - 10/08/2023 12:25 PM CDT This order has been created and auto-finalized to support the import of outside images. If available, original interpretation can be found on the Media Tab in Chart Review, in Document Viewer, or as an image in QREADS. If a re-interpretation or overread is required please follow defined workflow. ?? Provider Not In System IMG MRI PROCEDURE S IINY NA * (ABNORMAL) Glucose, Fasting (09/07/2014 10:25 AM CDT) Last Intake 14 HR [facility] Glucose, P 101(H) 70 - 100 MG/DL [facility] 09/07/2014 10:2 5 AM CDT 09/07/2014 10:25 AM CDT Lonnie Moreland P.A.-C. LAB BLOOD NON ADD-ON Performing Organization Address [facility]/ZIP Co de Phone Number [facility] [address] * (ABNORMAL) Lipid Panel (04/04/2013 7:24 AM PANTS BUSHELER) Calculated LDL 141(H) 0 - 100 MGDL POWERCHART Total Cholesterol/HDL Ratio 5.23(H) 2.20 - 4.40 POWERCHART Cholesterol, Total 204(H) <=200 MGDL POWERCHART HX HDL 39(L) 40 - 60 MGDL POWERCHART Triglycerides 119 <=150 MGDL POWERCHART HXLDL/HDL 4 POWERCHART Blood 04/04/2013 7:24 AM PANTS BUSHELER Rachel Foreman M.D. LAB BLOOD ADD-ON Performing Organization Address City/[facility]/ZIP Co de Phone Number POWERCHART * BI Breast Screening Bilateral (03/30/2013 4:07 PM PANTS BUSHELER) Anatomical Region Laterality Modality Breast Bilateral Mammography 03/30/2013 4:07 PM PANTS BUSHELER Impressions 03/31/2013 10:19 AM PANTS BUSHELER Recommendations: ??I recommend a follow-up mammogram in [...] digital mammogram images. Narrative 03/31/2013 10:19 AM PANTS BUSHELER EXAM: MA Mammo Screening w/ CADD INDICATION: [...] R.TEvette(R)(M) IMG B I PROCEDURES * Pathology TAX DIRECTOR Cytology (03/30/2013 12:00 AM PANTS BUSHELER) 03/30/2013 Narrative [facility] LAB - 04/04/2013 1:28 PM PANTS BUSHELER [facility] in [place] [address] [facility] [address] [place], [place] ??[phone] Patient Name: DEBORA RUBY Collected: 03/30/2013 Address: City/State/Zip: [address] [place] [address] ??[phone] Received: Reported: 03/31/2013 04/04/2013 Soc. Sec. #: ?/Age/Sex 1970 (Age: 42) ??F Physician(s): NJ FOREMAN MD Copy To: ? [facility] ??[id number] [address] [facility], ??[place] ??[address] CYTOPATHOLOGY TAX DIRECTOR REPORT FINAL CYTOLOGIC DIAGNOSIS Pap Smear, Vagina [...] Rachel Foreman M.D. LAB PAP BLAS EL [facility] Organization Address City/State/ZIP Co de Phone Number [facility] LAB from Last 3 Months or Most Recently Relevant to Health Maintenance Additional Health Concerns Infection Onset Date Last Indicated Protective Environment 01/07/2023 3 Care Teams Meat Boner Relationship Specialty Start Date End Date Jessica Schulz APRN, C.N.P., D.N.P. [address] [place] [phone] PCP - General 12/12/20
--- OUTSIDE RECORDS SUMMARY | 2023-11-15 14:30 | XMS_ITS | Encounter Summary ---
Author Organization [facility] Address [address] [place] [address] Care Team Providers Care Medical Insurance Coder Name Role Phone Jessica Schulz APRN, C.N.P., D.N.P. Primary C are Provider Encounter Details Date Type Department Care Team (Late st Contact Info) Description 11/02/2023 Orders Only [facility] [address] [place] [phone] Jessica Schulz APRN, C.N.P., D.N.P. [address] [place] [address] Screening Cancer Colon Social History Tobacco Use Types Packs/Day Years Used Date Smoking Tobacco: Former Cigarettes - 2014 Smokeless Tobacco: Never Alcohol Use [...] and Family Once a week 12/08/2018 Attends Congregational Services 1 to 4 times per year [...] Date Recorded PHQ-2 Score 0 06/22/2023 [facility] of Occupat ional Health - Occupational Stress [...] your living situation today? I have a [facility] place to live 01/08/2023 Education Answer [...] Orders Only [facility] [address] [place] [address] Jessica Schulz, PRATIK, C.N.P., D.N.P. [address] [place] [phone] Screening Cancer Colon 01/26/2024 1:30 PM CDT Appointment Department of Radiation Oncology in [place], [place] [address] [place] [phone] Abisai Ortega M.D. [address] [place] [address] Scheduled Orders Name Type Priority Associated Diagnoses Orde r Schedule Cologuard - Sent Out Lab Lab Routine Screening Cancer Colon Expected: 11/16/2023, Expires: 02/01/2025 documented as of this encounter Visit Diagnoses Diagnosis Screening Cancer Colon Screening Cancer Colon documented in this encounter Additional Health Concerns Infection Onset Date Last Indicated Resolved Time Protective Environment 01/07/2023 01/07/2023 Assessment Noted Time PHQ-9 Depression Total Score: 13 019 8:17 AM CDT documented as of this encounter Care Teams Medical Insurance Coder Relationship Specialty Start Date End Date Jessica Schulz APRN, C.N.P., D.N.P. [address] [place] [phone] PCP - General 12/12/20 documented as of this encounter
--- OUTSIDE RECORDS SUMMARY | 2023-11-15 14:30 | XMS_ITS | Clinical Summary ---
Author Organization [facility] Address [address] [place] [address] Care Team Providers Care Tank Hoop Bender Name Role Phone Jessica Schulz APRN, C.N.P., D.N.P. Primary C are Provider Source Comments Patient records contain information from all sites at [facility]. For routine questions regarding patient records, call [phone] during business hours, M-F 8:00 AM - 5:00 PM Central Time. Record requests for emergency care only can be directed to [phone] at any time.[facility] Allergies No known active allergies Medications [...] SELF TEST [facility] [address] [place] [address] Jessica Schulz APRN, C.N.PEvette, D.N.P. Screening Cancer Colon 10/19/2023 2:31 PM CDT - 10/19/2023 3:33 PM CDT Hospital Encounter Department of Radiation Oncology in [place], [place] [address] [place] [address] Abisai Ortega M.D. Malignant Neoplasm Of Lung Adenocarcinoma Right (HCC) (Primary Dx); Secondary Malignant Neoplasm Brain (HCC) 09/15/2023 Clinical Communication Department of [facility], [facility], [place], [place] [address] [place] [phone] Jessica Schulz APRN C.N.P., D.N.P. Health Maintenance 09/08/2023 Clinical Communication Department of Family [facility], [facility], in [place], [place] [address] [place] [phone] Jessica Schulz APRN, C.N.P., D.N.P. Health Maintenance 08/24/2023 Orders Only [facility] PCP [facility] MNT Jessica Schulz APRN, C.N.P., D.N.P. Screening Examination Diabetes Mellitus; Screening Lipid; Screening Mammogram Breast Cancer 08/19/2023 Refill Department of Family [facility], [facility], in [place], [place] [address] [phone] Jessica Schulz APRN, C.N.P., D.N.P. Med Refill from Last 3 Months Immunizations Name Administration [...] Smoking Tobacco: Former Cigarettes 1 23 1 99 - 2014 Smokeless Tobacco: Never Tobacco Cessation:Counseling [...] and Family Once a week 12/08/2018 Attends Uatsdin Services 1 to 4 times per year [...] Answer Date Recorded PHQ-2 Score 0 06/22/2023 [facility] - Occupational Stress Questionnaire Answer Date [...] your living situation today? I have a [facility] place to live 01/08/2023 Education Answer Date [...] Body Mass Index 37.92 06/23/2023 1:08 PM RN PARALEGAL Plan of Treatment Upcoming Encounters Date Type Department Care Team (Late st Contact Info) Description 11/16/2023 Orders Only [facility] [address] [place] [address] Jessica Schulz APRN, C.N.P., D.N.P. [address] [place] [phone] Screening Cancer Colon 01/26/2024 1:30 PM CDT Appointment Department of Radiation Oncology in [place], [place] [address] [place] [address] Abisai Ortega M.D. [address] [place] [address] Health Maintenance Due Date Last Done Comments [...] this topic Medical Devices Implanted Type Area Patent Prosecution Paralegal Device Identifier Shelf Expiration Date Model / [...] LIPID PANEL, S Routine 04/04/2013 7:24 AM RN PARALEGAL BI BREAST SCREENING BILATERAL Routine 03/30/2013 4:07 PM RN PARALEGAL PATHOLOGY LICENSED AIRCRAFT MAINTENANCE ENGINEER CYTOLOGY Routine 03/30/2013 12:00 AM RN PARALEGAL from Last 3 Months or Most Recently [...] IMG MRI PROCEDURE S Performing Organization Address [facility] de Phone Number IIMS NA * (ABNORMAL) Glucose, Fasting (09/07/2014 10:25 AM CDT) Last Intake 14 HR [facility] Glucose, P 101(H) 70 - 100 MG/DL [facility] 09/07/2014 10:2 5 AM CDT 09/07/2014 10:25 AM CDT Lonnie Moreland P.A.-C. LAB BLOOD NON ADD-ON Performing Organization Address [facility] de Phone Number [facility] [address] * (ABNORMAL) Lipid Panel (04/04/2013 7:24 AM RN PARALEGAL) Calculated LDL 141(H) 0 - 100 MGDL POWERCHART Total Cholesterol/HDL Ratio 5.23(H) 2.20 - 4.40 POWERCHART Cholesterol, Total 204(H) <=200 MGDL POWERCHART HX HDL 39(L) 40 - 60 MGDL POWERCHART Triglycerides 119 <=150 MGDL POWERCHART HXLDL/HDL 4 POWERCHART Blood 04/04/2013 7:24 AM RN PARALEGAL Rachel Foreman M.D. LAB BLOOD ADD-ON Performing Organization Address [facility] de Phone Number POWERCHART * BI Breast Screening Bilateral (03/30/2013 4:07 PM RN PARALEGAL) Anatomical Region Laterality Modality Breast Bilateral Mammography 03/30/2013 4:07 PM RN PARALEGAL Impressions 03/31/2013 10:19 AM RN PARALEGAL Recommendations: ??I recommend a follow-up mammogram in [...] digital mammogram images. Narrative 03/31/2013 10:19 AM RN PARALEGAL EXAM: MA Mammo Screening w/ CADD INDICATION: [...] on the digital mammogram images. Radha Bosch(R), REvetteTEvette(R)(M) IMG B I PROCEDURES * Pathology LICENSED AIRCRAFT MAINTENANCE ENGINEER Cytology (03/30/2013 12:00 AM RN PARALEGAL) 03/30/2013 Narrative M LAB - 04/04/2013 1:28 PM RN PARALEGAL [facility] in [address] [place], [place] ??[phone] Patient Name: DEBORA RUBY Collected: 03/30/2013 Address: [facility]/State/Zip: [address], [place] ??[phone] Received: Reported: 03/31/2013 04/04/2013 Soc. Sec. #: ?/Age/Sex 1970 (Age: 42) ??F Physician(s): NJ FOREMAN MD Copy To: ? [facility] ??[id number] [address] [facility], ??[place] ??[address] CYTOPATHOLOGY LICENSED AIRCRAFT MAINTENANCE ENGINEER REPORT FINAL CYTOLOGIC DIAGNOSIS Pap Smear, Vagina [...] Rachel Foreman M.D. LAB PAP BLAS EL [facility] Organization Address City/State/ZIP Co de Phone Number [facility] LAB from Last 3 Months or Most Recently Relevant to Health Maintenance Additional Health Concerns Infection Onset Date Last Indicated Protective Environment 01/07/2023 3 Care Teams Tank Hoop Bender Relationship Specialty Start Date End Date Jessica Schulz APRN, C.N.P., D.N.P. [address] [place] [phone] [facility] - General 12/12/20
--- OUTSIDE RECORDS SUMMARY | 2023-11-15 14:30 | XMS_ITS ---
Author Organization [facility] Address [address] [place] [address] Care Team Providers Care Wharf Builder Name Role Phone Jessica Schulz APRN, C.N.P., [...] Treated Prescribed Fraction Dose Prescribed Total Dose [id number] 02/05/2023 4 3 of 3 900 cGy 2,700 cGy F1 L3-5 Spine 02/08/2019 6 5 of 5 400 cGy 2,000 cGy Reference Point Last Treated On Elapsed Days Session Dose Total Dose [id number] 02/05/2023 4 900 cGy 2,700 cGy [id number] 02/08/2019 6 400 cGy 2,000 cGy
--- OUTSIDE RECORDS SUMMARY | 2023-11-15 14:30 | XMS_ITS ---
Author Organization [facility] Address [address] [place] [address] Care Team Providers Care Cementer Machine Name Role Phone Unavailable Unavailable Unavailable Surgery Details Not on file Complications Check Surgery Details section. Procedure Estimated Blood Loss Check Surgery Details section. Procedure Findings Check Surgery Details section. Procedure Specimens Taken Check Surgery Details section.
--- OUTSIDE RECORDS SUMMARY | 2023-11-15 14:31 | XMS_ITS | Encounter Summary ---
Author Organization [facility] Address [address] [place] [address] Care Team Providers Care Patient Access Registrar Name Role Phone Jessica Schulz APRN, C.N.PEvette, D.N.P. Primary C are Provider Reason for Referral * Outpatient (Routine) - Authorized Specialty Diagnoses / Procedures Referred By Lito t Referred To Contact Family Medicine Jessica Schulz APRN, C.N.P., D.N.P. [address] [place] [address] [facility] Referral ID Status Reason Start Date Expiration Date V isits Requested Visits Authorized [id number] Authorized 08/24/2023 02/22/2025 1 1 * Outpatient (Routine) - Authorized Specialty Diagnoses / Procedures Referred By Lito t Referred To Contact Diagnoses Screening Mammogram Breast Cancer Procedures BI Breast Screening Bilateral with Tomosynthesis Jessica Schulz APRN, C.N.P., D.N.P. [address] [place] [address] [facility] Region Referral ID Status Reason Start Date Expiration Date V isits Requested Visits Authorized [id number] Authorized 08/24/2023 08/23/2024 1 1 Encounter Details Date Type Department Care Team (Late st Contact Info) Description 08/24/2023 Orders Only [facility] MNT Jessica Schulz APRN, C.N.P., D.N.P. [address] [place] [address] Screening Examination Diabetes Mellitus; Screening [...] and Family Once a week 12/08/2018 Attends Restorationist Services 1 to 4 times per year [...] Answer Date Recorded PHQ-2 Score 0 06/22/2023 [facility] of Occupat ional Health - Occupational [...] [facility] SELF [facility] [address] [place] [address] Jessica Schulz APRN, C.N.P., D.N.P. [address] [place] [address] Screening Cancer Colon 01/26/2024 1:30 PM CDT Appointment Department of Radiation Oncology in [place], [place] [address] [place] [phone] Abisai Ortega M.D. [address] [place] [address] Scheduled Orders Name Type Priority Associated Diagnoses [...] Mellitus Screening Lipid Screening Mammogram Breast Cancer Screening Cancer Colon documented in this encounter Additional Health Concerns Infection Onset Date Last Indicated Resolved Time Protective Environment 01/07/2023 01/07/2023 Assessment Noted Time PHQ-9 Depression Total Score: 13 019 8:17 AM CDT documented as of this encounter Care Teams Patient Access Registrar Relationship Specialty Start Date End Date Jessica Schulz APRN, C.N.P., D.N.P. [address] [place] [address] PCP - General 12/12/20 documented as of this encounter
--- OUTSIDE RECORDS SUMMARY | 2023-11-15 14:31 | XMS_ITS | Encounter Summary ---
Author Organization [facility] Address [address] [place] [address] Care Team Providers Care Funeral Workers Name Role Phone Jessica Schulz APRN, C.N.P., D.N.P. Primary C are Provider Reason for Visit * Reason Onset Date Comments Health Maintenance 09/15/2023 Encounter Details Date Type Department Care Team (Latest Contact Info) Description 09/15/2023 Clinical Communication Department of Family Medicine, [facility], in [place], [place] [address] [place] [phone] Jessica Schulz APRN, C.N.P., D.N.P. [address] [place] [phone] Health Maintenance Social History Tobacco Use [...] and Family Once a week 12/08/2018 Attends Scientologist Services 1 to 4 times per year [...] Answer Date Recorded PHQ-2 Score 0 06/22/2023 [facility] - Occupational Stress Questionnaire Answer Date [...] your living situation today? I have a [facility] place to live 01/08/2023 Education Answer Date [...] This is the 2nd contact by the [facility] team to schedule preventive care services. The [...] Only [facility] SELF TEST [facility] [address] [place] [phone] Jessica Schulz APRN, C.N.P., D.N.P. [address], [place] [phone] Screening Cancer Colon 01/26/2024 1:30 PM CDT Appointment Department of Radiation Oncology in [place], [place] [address] [place] [phone] Abisai Ortega M.D. [address] [place] [address] documented as of this encounter Visit Diagnoses Not on filedocumented in this encounter Additional Health Concerns Infection Onset Date Last Indicated Resolved Time Protective Environment 01/07/2023 01/07/2023 Assessment Noted Time PHQ-9 Depression Total Score: 13 01/17/ 019 8:17 AM CDT documented as of this encounter Care Teams Funeral Workers Relationship Specialty Start Date End Date Jessica Schulz APRN C.N.P., D.N.P. [address], [place] [phone] PCP - General 12/12/20 documented as of this encounter
--- OUTSIDE RECORDS SUMMARY | 2023-11-15 14:31 | XMS_ITS | Encounter Summary ---
Author Organization [facility] Address [address] [place] [address] Care Team Providers Care Parts Casting Machine Operator Name Role Phone Jessica Schulz APRN, C.N.P., D.N.P. Primary C are Provider Reason for Visit * Reason Onset Date Comments Health Maintenance 09/08/2023 Encounter Details Date Type Department Care Team (Latest Contact Info) Description 09/08/2023 Clinical Communication Department of Family Medicine, [facility], in [place], [place] [address] [place] [phone] Jessica Schulz APRN, C.N.P., D.N.P. [address] [place] [phone] Health Maintenance Social History Tobacco Use [...] and Family Once a week 12/08/2018 Attends Yazdanism Services 1 to 4 times per year [...] Answer Date Recorded PHQ-2 Score 0 06/22/2023 [facility] - Occupational Stress Questionnaire Answer Date [...] your living situation today? I have a [facility] place to live 01/08/2023 Education Answer Date [...] This is the 1st contact by the [facility] team to schedule preventive care [...] SELF TEST AUAC [address] [place] [address] Jessica Schulz APRN, C.N.P., D.N.P. [address] [place] [phone] Screening Cancer Colon 01/26/2024 1:30 PM CDT Appointment Department of Radiation Oncology in [place], [place] [address] [place] [address] Abisai Ortega M.D. [address] [place] [address] documented as of this encounter Visit Diagnoses Not on filedocumented in this encounter Additional Health Concerns Infection Onset Date Last Indicated Resolved Time Protective Environment 01/07/2023 01/07/2023 Assessment Noted Time PHQ-9 Depression Total Score: 13 019 8:17 AM CDT documented as of this encounter Care Teams Parts Casting Machine Operator Relationship Specialty Start Date End Date Jessica Schulz APRN, C.N.P., D.N.P. [address] [place] [address] PCP - General 12/12/20 documented as of this encounter
--- OUTSIDE RECORDS SUMMARY | 2023-11-15 14:31 | XMS_ITS | Encounter Summary ---
Author Organization [facility] Address [address] [place] [address] Care Team Providers Care Boatbuilder Supervisor Name Role Phone Jessica Schulz APRN, C.N.P., D.N.P. Primary C are Provider Reason for Visit * Reason Comments Med Refill Encounter Details Date Type Department Care Team (Late st Contact Info) Description 08/19/2023 Refill Department of Family Medicine, [facility], in [place], [place] [address] [place] [phone] Jessica Schulz APRN, C.N.P., D.N.P. [address], [place] [phone] Med Refill Social History Tobacco Use [...] Answer Date Recorded PHQ-2 Score 0 06/22/2023 [facility] Occupat ional [facility] - Occupational [...] your living situation today? I have a [facility] place to live 01/08/2023 Education Answer Date [...] SELF TEST [facility] [address] [place] [address] Jessica Schulz APRN, C.N.P., D.N.P. [address] [place] [phone] Screening Cancer Colon 01/26/2024 1:30 PM CDT Appointment Department of Radiation Oncology in [place], [place] [address] [place] [phone] Abisai Ortega M.D. [address] [place] [phone] documented as of this encounter Visit Diagnoses Diagnosis Tenderness Epigastric Screening Cancer Colon documented in this encounter Additional Health Concerns Infection Onset Date Last Indicated Resolved Time Protective Environment 01/07/2023 01/07/2023 Assessment Noted Time PHQ-9 Depression Total Score: 13 01/17/2 019 8:17 AM CDT documented as of this encounter Care Teams Boatbuilder Supervisor Relationship Specialty Start Date End Date Jessica Schulz APRN, C.N.P., D.N.P. [address] [place] [phone] PCP - General 12/12/20 documented as of this encounter
--- OUTSIDE RECORDS SUMMARY | 2023-11-15 14:31 | XMS_ITS | Encounter Summary ---
Author Organization [facility] Address [address] [place] [address] Care Team Providers Care Rollway Worker Name Role Phone Jessica Schulz APRN C.N.P., D.N.P. Primary C are Provider Encounter Details Date Type Department Care Team (Late st Contact Info) Description 07/13/2023 Clinical Communication Department of Radiation Oncology in [place], [place] [address] [place] [phone] Abisia Ortega M.D. [address] [place] [phone] Social History Tobacco Use Types Packs/Day Years [...] and Family Once a week 12/08/2018 Attends Taoism Services 1 to 4 times per year [...] Answer Date Recorded PHQ-2 Score 0 [facility] - [facility] Questionnaire Answer Date [...] Date Recorded Dental: Regular Dentist Yes 01/09/20 23 Employment Answer Date Recorded Employment status Employed [...] her scans done until 08/01. Looking at [facility]'s calendar his next available f/u is not until August 25. The patient said that she hasavailability on 08/10 which is his mgmt day. Could we add her on for 08/10 or is there a better time?Please advise. TIC SCIENTIST documented in this encounter Plan of Treatment Upcoming Encounters Date Type Department Care Team (Late st Contact Info) Description 11/16/2023 Orders Only [facility] SELF TEST [facility] [address] [place] [id number] Jessica Schulz APRN, C.N.P., D.N.P. [address] [place] [address] Screening Cancer Colon 01/26/2024 1:30 PM CDT Appointment Department of Radiation Oncology in [place], [place] [address] [place] [phone] Abisai Ortega M.D. [address] [place] [address] documented as of this encounter Visit Diagnoses Not on filedocumented in this encounter Additional Health Concerns Infection Onset Date Last Indicated Resolved Time Protective Environment 01/07/2023 01/07/2023 Assessment Noted Time PHQ-9 Depression Total Score: 13 019 8:17 AM CDT documented as of this encounter Care Teams Rollway Worker Relationship Specialty Start Date End Date Jessica Schulz APRN, C.N.P., D.N.P. [address] [place] [phone] PCP - General 12/12/20 documented as of this encounter
--- OUTSIDE RECORDS SUMMARY | 2023-11-15 14:31 | XMS_ITS | Encounter Summary ---
Author Organization [facility] Address [address] [place] [id number] Care Team Providers Care Superintendent System Operation Name Role Phone Jessica Schulz APRN C.N.PEvette, D.N.P. Primary C are Provider Reason for Referral * Outpatient (Routine) - Closed Specialty Diagnoses / Procedures Referred By Lito newberry Referred To Contact Radiation Oncology Abisai Ortega M.D. [address] [place] [phone] Abisai Ortega M.D. [address] [place] [phone] Referral ID Status Reason Start Date Expiration Date Visits Re quested Visits Authorized [id number] Closed 08/11/2023 02/09/2025 1 1 Scheduling Instructions Please schedule 1-2 days after brain MRI at [facility]. Please get images and report prior to visit. Encounter Details Date Type Department Care Team (Late st Contact Info) Description 08/11/2023 Clinical Communication Department of Radiation Oncology in [place], [place] [address] [place] [phone] Sarai Yoon P.A.-C., M.S. [address] [place] [phone] Social History Tobacco Use Types Packs/Day Years [...] and Family Once a week 12/08/2018 Attends Rastafari Services 1 to 4 times per year [...] Answer Date Recorded PHQ-2 Score 0 06/22/2023 [facility] of Occupat ional Health - Occupational Stress [...] your living situation today? I have a [facility] place to live 01/08/2023 Education Answer [...] encounter Miscellaneous Notes * Telephone Encounter - CarSarai P.A.-C., M.S. - 08/11/2023 3:20 PM CDT [...] and diagnostic brain MRI[facility] done at [facility] in 2 months followed by a return visit here 1-2 days after the imaging to review the result. The patient will contact us sooner with questions or concerns. Sarai Yoon P.A.-C., M.S. documented in this encounter Plan of Treatment Upcoming Encounters Date Type Department Care Team (Late st Contact Info) Description 11/16/2023 Orders Only [facility] SELF TEST [facility] [address] [place] [address] Jessica Schulz APRN, C.N.P., D.N.P. [address] [place] [phone] Screening Cancer Colon 01/26/2024 1:30 PM CDT Appointment Department of Radiation Oncology in [place], [place] [address] [place] [address] Abisai Ortega M.D. 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 [address] [place] [phone] PCP - General 12/12/20 documented as of this encounter
--- OUTSIDE RECORDS SUMMARY | 2023-11-15 14:31 | XMS_ITS | Encounter Summary ---
Author Organization [facility] Address [address] [place] [id number] Care Team Providers Care White Sourer Name Role Phone Jessica Schulz APRN C.N.PEvette, D.N.PEvette Primary C are Provider Reason for Referral * Outpatient (Routine) - Authorized Specialty Diagnoses / Procedures Referred By Lito newberry Referred To Contact Radiation Oncology Sarai Yoon P.A.-C., M.S. [address] [place] [phone] Abisai Ortega M.D. [address] [place] [phone] Referral ID Status Reason Start Date Expiration Date V isits Requested Visits Authorized [id number] Authorized 10/19/2023 04/19/2025 1 1 Scheduling Instructions MRI brain prior at [facility]; please get report and images prior to visit * MRI/CAT/PET Scan (Routine) - Pending Review Specialty Diagnoses / Procedures Referred By Lito newberry Referred To Contact Radiology Diagnoses Malignant Neoplasm Of Lung Adenocarcinoma Right (HCC) Secondary Malignant Neoplasm Brain (HCC) Procedures MR Brain without and with IV Contrast Sarai Yoon P.A.-C., M.S. [address] [place] [phone] [facility] Region Referral ID Status Reason Start Date Expiration Date V isits Requested Visits Authorized [id number] Pending Review 10/19/2023 10/18/2024 1 1 * Outpatient (Routine) - Closed Specialty Diagnoses / Procedures Referred By Lito t Referred To Contact Radiation Oncology Abisai Ortega M.D. [address] [place] [phone] Abisai Ortega M.D. [address] [place] [phone] Referral ID Status Reason Start Date Expiration Date Visits Re quested Visits Authorized [id number] Closed 08/11/2023 02/09/2025 1 1 Scheduling Instructions Please schedule 1-2 days after brain MRI at [facility]. Please get images and report prior to visit. Reason for Visit * Outpatient (Routine) - Closed Specialty Diagnoses / Procedures Referred By Lito newberry Referred To Contact Radiation Oncology Abisai Ortega M.D. [address] [place] [phone] Abisai Ortega M.D. [address] [place] [phone] Referral ID Status Reason Start Date Expiration Date Visits Re quested Visits Authorized [id number] Closed 08/11/2023 02/09/2025 1 1 Encounter Details Date Type Department Care Team (Latest Contact Info) Description 10/19/2023 2:31 PM CDT - 10/19/2023 3:33 PM CDT Hospital Encounter Department of Radiation Oncology in [address], [place] [address] [place] [phone] Abisai Ortega M.D. [address] [place] [phone] Malignant Neoplasm Of Lung Adenocarcinoma Right (HCC) (Primary Dx); Secondary Malignant Neoplasm Brain (HCC) Social History Tobacco Use Types Packs/Day Years [...] Answer Date Recorded PHQ-2 Score 0 06/22/2023 [facility] [place] of Occupat ional Health - Occupational Stress [...] your living situation today? 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 08/05/2015 ALECENSA 150 mg capsule 03/03/2019 levonorgestrel (MIRENA) 20 mcg/24 hours (5 yrs) 52 mg IUD by intrauterine route. 01/26/2007 omeprazole (PriLOSEC) [address] capsuleIndications:Te nderness Epigastric Take 1 capsule (40 mg total) by mouth every morning before breakfast. 30 capsule 08/23/2023 documented as of this encounter Progress Notes * Sarai Yoon P.A.-C., M.S. - 10/19/2023 3:00 PM CDT SUBJECTIVE DIAGNOSIS 1. Malignant Neoplasm Of Lung Adenocarcinoma Right (HCC) 2. Secondary Malignant Neoplasm Brain (HCC) SUPERVISED BY: Abisai Ortega M.D. ([phone]) HISTORY OF PRESENT ILLNESS Mrs. Debora Valdes is a 53-year-old female with metastatic adenocarcinoma of the right lung. She completed SRT to three right frontal brain metastases on February 05, 2023. Her oncologic history is as follows: Oncology History Malignant Neoplasm Of Lung Adenocarcinoma Right (HCC) 08/31/2014 Other Patient recovering from back pain. She also had some itching at that time. Because she was a smokerand the concern was that maybe she had a pneumonia because of a cough causing the back pain, a chest x-ray was done, this demonstrated a 3.1 x 2.6 cm right infrahilar opacity. 09/05/[address] scan of the chest was performed and demonstrated a 3.2- x 3.2 mass in the right lower lobe. There was no suspicious hilar or mediastinal adenopathy. Also noted was a 3-mm noncalcified nodule in the right middle lobe and a 10- x 6.4 mass in the left hepatic lobe. 09/07/2014 Critical Imaging MRI of brain was done and was negative. 09/11/2014 Critical Imaging PET-CT was done, this demonstrated a 3- x 2.6-cm mass in the right lower lobe with increased FDG uptake. There was a FDG avid right hilar node and seven carinal nodes noted consistent with metastasis. There was also a liver lesion noted, but that this was not FDG avid, and was thought unlikely to be metastatic. 09/12/2014 Biopsy/Pathology She underwent flexible bronchoscopy with transbronchial ultrasound-guided needle biopsy by Dr. Whitaker,at station seven there was a 1 cm node that was sampled which was positive for metastatic adenocarcinoma. A low 11R node was identified and biopsied and demonstrated lymphoid tissue present with no evidence of malignancy. Mutational analysis demonstrated EGFR wild-type, ALK positive, ROS1 negative. 09/13/2014 Critical Imaging MRI of the abdomen was done to evaluate liver lesion and demonstrated an 8-cm lesion in the left hepatic lobe that was noted to be a large benign cavernous hemangioma. Also noted was an additional cavernous hemangioma in the caudate and medial left hepatic lobe. PFTs were performed and demonstrated a FEV1 of 3.04 L (102% predicted), adjusted DLCO was 96% predicted. 09/14/2014 Other She was evaluated by Thoracic Surgery (Dr. Wren). He recommended preoperative chemotherapy with radiation with 60 Gy followed by a restaging with PET-CT, and if no evidence of stage IV disease, to proceed with right lower lobectomy. 09/2014 Other Given ALK positivity, decision was made to pursue a trial of pazopanib therapy. She was seen by at [facility], and changed ALK communication to ALK positive rearrangement. She continued to receive pazopanib therapy for at least two months. Initially, she did have a response to lung lesion and size went from 3.6 x 2.8 to 2.9 x 1.9 cm. However, later she failed to demonstrate any response. Decision was made to transition management plan from pazopanib therapy to concurrent chemotherapy. 12/17/2014 - 01/25/2015 Radiation Therapy She underwent concurrent chemotherapy and radiation therapy. She completed a total plan course of 6000 cGy in 30 fractions to the right lower lobe of the lung. She also underwent concurrent chemotherapy under the care of Dr. Quintero. She received her first cycle of cisplatin plus EQUINE DENTIST-16 from December 10 to December 17, her second cycle was from January 14 to January 21. 03/04/2015 Other She was seen by Dr. Wren of Thoracic Surgery again who recommended to proceed with a surgical procedure. 03/07/[address] chest demonstrated evolution of the right lower lobe large nodule with resolved central cavitation and measuring mildly decrease in AP diameter. There were also noted to be several small bilateralindeterminate pulmonary nodules. Also noted was a right infrahilar lymph node and subcarinal lymph nodes measuring within normal limits. 03/11/2015 Surgery and Procedures She underwent a flexible bronchoscopy with mediastinoscopy, [...] was indeterminate. Fragments of 2 lymph node sets from station 7 were positive. Pathological staging was pT2a, pN2. 05/2015 - 07/23/2015 Chemotherapy Postoperative adjuvant chemotherapy consisting of cisplatin and Alimta subsequently changed to carboplatin and Alimta due to GI side effects. She received a total of 4 cycles completed on July 23, [address] [facility]. She was seen in Medical Oncology by Dr. Gonzáles in [facility] on November 21, 2015 who discussed continuation of crizotinib. She did not receive additional systemic therapy. She was subsequently lost to follow-up. 01/11/2019 Critical Imaging MRI of the lumbar spine for evaluation of low back pain radiating to the left leg demonstrated a new enhancing marrow replacing mass centered in the left aspect of the L4 vertebral body and also involving the left posterior elements. The mass is associated with mass effect upon the left lateral recess at L4-5 and moderate stenosis of the left L4-5 neural foramen. 01/24/2019 Critical Imaging PET-CT shows increased FDG activity in the L4 vertebral body lesion previously seen on the January 11, 2019 MRI. This is likely representing bony metastatic disease. There is a hypermetabolic soft tissue lesion in the left triceps musculature. This is suspicious for musculoskeletal metastasis. 01/26/2019 Critical Imaging MRI of the brain in comparison to September 07, 2014 shows new punctate foci of enhancement in the right middle frontal gyrus and right lateral orbital gyrus compatible with metastases. An additional subtle focus of enhancement in the superior right frontal gyrus is indeterminate. 01/27/2019 Biopsy/Pathology Ultrasound guided biopsy of left upper extremity soft tissue mass was performed. On ultrasound there was a 1.9 x 2.3 x 5.6 cm mass located in the left anterolateral deltoid muscle at the level of themid humerus. This lesion was originally described on the PET-CT from January 24, 2019 as being located in the left triceps musculature. The left triceps was completely scanned and contained no masses. Histologic exam was positive for malignancy. Involved by poorly differentiated adenocarcinoma consistent with the patient's known lung adenocarcinoma. ALK status is pending. 01/27/2019 Tumor Board Electronic multi disciplinary input from Dr. Roper in Orthopedics who recommended proceeding with radiation therapy to the L4 lesion. He did not feel surgery at L4 was indicated at this time. The leftupper extremity soft tissue mass could be excised if needed. Dr. Collazo in Medical Oncology recommended starting Alectinib. 01/30/[address] Yaritza Taylor in Medical Oncology at [facility] who ordered Alectinib and proceeding with radiation therapy to L4 and repeat brain MRI 6 weeks after she starts systemic therapy. 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 Observation of left upper extremity lesion as index to determine response to systemic therapy. Excision or radiation therapy could be considered if response is suboptimal. 02/01/2019 Clinical Stage Staging form: Lung, AJCC V7 - Clinical stage from 02/01/2019: Stage IIIA (T2a, N2, M0) Staged by: Managing physician Diagnostic confirmation: Positive histology Specimen type: Biopsy / Limited Resection Histopathologic type: Adenocarcinoma, NOS Laterality: Right Tumor size (mm): 32 02/01/2019 Pathologic Stage Staging form: Lung, AJCC 8th Edition - Pathologic stage from 02/01/2019: pT2, pN2, cM0 Histologic grade (G): G2 Histologic grading system: 4 grade system Lymph-vascular invasion (LVI): Presence of LVI unknown/indeterminate Residual tumor (R): R2 - Macroscopic Histopathologic type: Adenocarcinoma, NOS Diagnostic confirmation: Positive histology Specimen type: Excision Staged by: Managing physician 02/02/2019 - 02/08/2019 Radiation Therapy Radiation Therapy Treatment Details (Noted on 01/27/2019) Site: Spine Technique: No technique specified Goal: No goal specified Patient completed 5 fractions, receiving a total dose of 2000 cGy to L3-L5. 02/13/2019 - Chemotherapy Alectinib initiated under the direction of Dr. Taylor. 03/28/2019 Critical Imaging MRI of the brain was read as demonstrating no intracranial metastases. Dr. Lamas reviewed the images which showed improvement in the previously seen presumed metastases. 07/21/2019 Critical Imaging MRI demonstrated no acute intracranial abnormality. PET-CT: 1. The hypermetabolic malignant mass in the musculature of the left arm has resolved consistent with a metastasis which has completely resolved after treatment. 2. The mixed lytic and sclerotic intensely hypermetabolic metastasis involving the L4 vertebral body is stable in size but has decreased markedly in uptake but still has patchy intermediate uptake. Some of the residual uptake within this metastasis could be related to posttreatment change especially if there has been recent radiation treatment but can not exclude mild residual viable tumor in this lesion. 3. No new metastatic disease in the body. 4. Very large centrally necrotic mildly intermediately hypermetabolic left hepatic lobe mass is stable in size and uptake. This mass has uptake similar to the liver. Indolent/benign lesion versus low-grade or previously treated neoplasms are the considerations. Correlation with CT or MRI with contrast using liver mass protocol and/or comparison with older films to ensure stability is recommended. 01/23/2020 Critical Imaging MR Brain impression: 1. No change compared to prior MRI brain 07/21/2019. 2. No evidence of cerebral metastases. No enhancing intracranial lesions. 3. Few stable tiny foci of T2 prolongation within cerebral white matter are nonspecific and consistent with migraine or mild chronic microvascular ischemia. PET-CT (01/25/2020) Impression: 1. Large partially necrotic mild to moderately hypermetabolic mass arising within or less likely adjacent to the left hepatic lobe is not greatly changed in size and has similar to less uptake compared to 07/13/2019. Findings would suggest an indolent etiology. Large size of the mass does not allowfor exclusion of a malignant lower grade primary or metastatic hepatic lesion. The level of uptake could suggest a treated metastasis or an unusually large benign liver lesion. If not done so alreadyrecommend correlation with contrast-enhanced CT or MRI using liver mass protocol to assess the enhancing characteristics of this mass to see if he thinks diagnosis can be made. Comparison with old orcross- sectional imaging would also be helpful in determining if this mass has remained stable for alonger length of time. 2. Mixed lytic and sclerotic metastases in the L4 vertebral body has no uptake above background bone consistent with a treated metastasis without viable tumor. 3. The left upper arm mass on prior imaging is no longer seen and likely with a metastasis which resolved after treatment. 4. No uptake in the chest to suggest residual, recurrent, or metastatic tumor. 5. Changes of right thoracotomy and right lung resection with volume loss stable. 11/28/[address] Chest Abdomen Pelvis impression: 1. No sign of recurrent or metastatic lung cancer. 2. Stable lobulated masses in the left lobe and caudate lobe of the liver possibly representing hemangiomas or old treated metastatic lesions. 3. No other significant findings. MR Head/Brain demonstrated 2 very tiny lesions, 2 mm in 3 mm in the right frontal lobe. 01/10/2021 Critical Imaging MR Brain impression: 1. Punctate enhancing lesion within the anteromedial right frontal lobe has decreased in size compared to 11/28/2020. The previously described lesion within the anterior lateral right frontal lobe isno longer visualized. Findings are compatible with a favorable treatment response. 2. No new acute intracranial lesions. 01/08/2022 Critical Imaging PET/CT IMPRESSION: 1. Stable PET-CT scan. 2. No hypermetabolic lesions are identified to suggest residual viable tumor or recurrent disease. 3. There is a large lesion within the left lobe liver which is stable. This may reflect a large hemangioma. 4. Stable lucent lesion L4 vertebral body without abnormal uptake. 5. Stable postsurgical changes from partial lung resection on the right. 02/09/2022 Critical Imaging MR Head/Brain Impression: 1. Relative to 08/19/2021, slightly increased size of the enhancing lesion within the right middle frontal gyrus, now 3.5 mm, previously 2.5 mm. The smaller right inferior frontal gyrus lesion appears larger on the coronal sequence, possibly artifactual from slice selection. 2. No new metastatic lesions identified. No acute intracranial abnormality. 04/20/2022 Critical Imaging MR brain Impression: 1. Relative to 08/19/2021, slightly increased size of the enhancing lesion within the right middle frontal gyrus. The smaller right inferior frontal gyrus lesion appears larger on the coronal sequence, possibly artifactual from slice selection. 2. No new metastatic lesions identified. No acute intracranial abnormality. 05/26/[address] chest abdomen and pelvis IMPRESSION: 1. Status post resection lower lobe right lung. 2. Giant cavernous hemangioma left hepatic lobe; stable. 3. No evidence of metastatic disease either in the chest, abdomen or pelvis and no interval change. 09/07/[address] Chest Abdomen Pelvis Impression: Stable postop changes of right lower lobectomy. Stable subcentimeter retroperitoneal lymph nodes and stable appearance of the L4 vertebral body. Stable appearance of the liver with giant cavernous hemangioma formation. MR Head/Brain Impression: 1. No evidence for new intracranial metastases. 2. Stable right middle and inferior frontal metastatic foci, compared to 02/09/2022. The inferior frontal metastatic focus is likely better visualized compared to 04/20/2022 given thin postcontrast sequences on the current examination. 3. Few scattered nonspecific T2 FLAIR hyperintense white matter foci. Differential considerations include sequela of migraine headaches or chronic ischemic microvascular disease. 12/28/[address] Chest Abdomen Pelvis Impression: Stable postsurgical changes to the right hemithorax. Stable subcentimeter upper retroperitoneal lymph nodes. Stable appearance of L4. Unchanged hepatic hemangiomas MR Head/Brain Impression: Slight increase in size of the T1 hyperintense enhancing nodular focus in the right superior frontal sulcus, now measuring 4 mm, previously 2 mm. Unchanged tiny 2 millimeter right inferior frontal metastatic focus. Additional 2 millimeter focus of enhancement in the inferior right frontal lobe is slightly more conspicuous on this exam. An adjacent cortical vessel raises the possibility of vascular etiology, butsmall metastatic deposit cannot be excluded. 02/01/2023 - 02/05/2023 Radiation Therapy Stereotactic radiotherapy to 3 right frontal brain metastases (right superior frontal lobe, right anterior frontal lobe, and right supraorbital frontal lobe) seen on planning MRI scan to a dose of 27Gy in 3 fractions. 04/20/2023 Critical Imaging [place] interpretation of outside brain MR IMPRESSION: Slight interim improvement in the appearance of approximately four intracranial nodular enhancing lesions consistent with diminishing metastatic disease. 05/03/[address] chest abdomen and pelvis demonstrated no recurrent or metastatic disease. 08/02/[address] chest abdomen and pelvis demonstrated no evidence of recurrent or metastatic disease. MR brain Impression: 1. Apparent new 2 mm focus of enhancement in the left frontal lobe at the tong- white matter junction versus artifact. Short-term follow up imaging is recommended. 2. Slight enlargement of 3 enhancing metastases in the right anterior frontal lobe, head of the right caudate nucleus and right superior frontal gyrus without associated edema. As there were significant differences in the postcontrast technique, findings could be attributed to differences in technique. 3. Stable 2 enhancing metastatic lesions in the right frontal lobe. 4. No evidence of acute intracranial abnormality. 10/06/2023 Critical Imaging MR Brain Impression: 1. Slight enlargement of a previously noted right anterior frontal lobe metastatic focus. 2. Previously noted apparent left frontal lobe metastatic focus is not visualized on this examination and is either improved or was artifactual. 3. Otherwise remaining intracranial metastatic foci appear stable. 4. No new metastatic focus identified. INTERVAL HISTORY: The patient was seen and examined today with Dr. Ortega. The patient reports doing well overall. She rates her fatigue as 1/10 in severity. She reports goodenergy levels overall. She reports not taking Alectinib for 3 weeks in August, but she has resumed the medication again since the beginning of September. She denies seizures, headaches, vision or hearing changes, nausea/vomiting, numbness/tingling/weakness, or bowel or bladder changes. She denies any specific symptoms or concerns today. REVIEW OF SYSTEMS Review of systems was negative except as documented above. PATIENT REPORTED SYMPTOM SCREEN: FATIGUE (Scale: 0 = no fatigue; 10 = worst fatigue you can imagine): 1 PAIN (Scale: 0 = no pain; 10 = worst pain you can imagine): 0 OVERALL QUALITY OF LIFE (Scale: 0 = as bad as can be; 10 = as good as can be): 8 OBJECTIVE BP 125/77 (BP Location: Right arm, Patient Position: Sitting, Cuff Size: Regular) Pulse 84 Temp36.3 ??C (Temporal) Wt 102 kg BMI 37.92 kg/m?? PHYSICAL EXAMINATION General: Patient is alert and oriented and in no apparent distress. Heart: Regular rate and rhythm. Lungs: Clear to auscultation bilaterally. Neuro: CN II-XII grossly intact. 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 diagnosed September 12, 2014 #2 Crizotinib therapy for two months completed December 06, 2014, with slight decrease in size of rightlower lobe lung mass #3 Concurrent cisplatin and EQUINE DENTIST 16 chemotherapy and definitive radiation therapy completed 2014 #4 Right lower lobectomy and mediastinal lymphadenectomy March 11, 2015 for pathologic stage T2a N2 adenocarcinoma #5 Postoperative adjuvant chemotherapy for 4 cycles completed July 23, 2015 #6 MRI of the lumbar spine consistent with metastatic disease in the L4 vertebral body on January 11, 2019 #7 MRI of the brain with punctate foci of enhancement in the right middle frontal gyrus and the right lateral orbital gyrus consistent with metastases on January 26, 2019 #8 Biopsy-proven poorly differentiated adenocarcinoma from a left upper extremity soft tissue mass on January 27, 2019 #9 Palliative radiotherapy to L3-L5 to a dose of 20 Gy in 5 fractions finishing on February 08, 2019 #10 Alectinib initiated on February 13, 2019 #11 Increase in size from 2 mm to 4 mm of right superior frontal sulcus lesion on brain MRI on December 28, 2022 #12 SRT to 3 right frontal brain metastases seen on planning MRI scan initiated on February 01, 2023; completed on February 05, 2023 The patient is doing well overall. She denies any specific neurologic symptoms or new concerns today. We reviewed her recent brain MRI report that demonstrated slight enlargement (1 mm) of a right anterior inferior frontal lobe metastatic focus. The other remaining intracranial metastatic foci appeared stable. No new metastatic focus identified. The patient declined to view the images today. We also offered to order for a [facility] interpretation of the imaging today, but the patient declined so an order was not placed. Dr. Ortega also reviewed the patient's imaging today and recommended continued monitoring with another brain MRI scan in 3 months. The patient would like the imaging done at [facility] [place] and an order will be placed. She is also continuing close follow-up with Dr. Townsend in Medical Oncology who she saw last week. Dr. Townsend has ordered for a CT scan of the chest, abdomen, pelvis and a follow-up visit in one month. We will order for a return visit joshua scheduled here after her next MRI brain imaging to review the result. The patient will contact us with questions or concerns. She verbally expressed her understanding of the plan. EDUCATION: Ready to learn, no apparent learning barriers were identified; learning preferences include listening. Explained diagnosis and treatment plan; patient expressed understanding of the content. I personally spent 23 minutes in care of the patient today. Time includes both non face to face andface to face patient care. Signed by: Sarai Yoon P.A.-C., M.S. 10/19/2023 3:17 PM CDT [facility] [address] [place], [place] [id number] Associated attestation - Abisai Ortega M.D. - 10/19/2023 3:33 PM CDT I saw and evaluated the patient and participated in the jaffe portions of the service. I reviewed thedocumentation of Sarai Yoon P.A.-C. and agree with the findings and plan. Mrs. Debora Valdes is a 53 y.o. 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 She underwent SRT to 3 right frontal brain metastasis finishing on January. The patient appears well on exam and is asymptomatic. I independently reviewed and interpreted the patient's brain MRI from October 06, 2023 and compared to her prior scans from August 02, 2023, April 19, 2023, and her planning MRI scan from January 22, 2023. The latest scan shows stable disease in the areas that were treated and no new disease on my review. 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 diagnosed September 12, 2014 #2 Crizotinib therapy for two months completed December 06, 2014, with slight decrease in size of rightlower lobe lung mass #3 Concurrent cisplatin and EQUINE DENTIST 16 chemotherapy and definitive radiation therapy completed 2014 #4 Right lower lobectomy and mediastinal lymphadenectomy March 11, 2015 for pathologic stage T2a N2 adenocarcinoma #5 Postoperative adjuvant chemotherapy for 4 cycles completed July 23, 2015 #6 MRI of the lumbar spine consistent with metastatic disease in the L4 vertebral body on January 11, 2019 #7 MRI of the brain with punctate foci of enhancement in the right middle frontal gyrus and the right lateral orbital gyrus consistent with metastases on January 26, 2019 #8 Biopsy-proven poorly differentiated adenocarcinoma from a left upper extremity soft tissue mass on January 27, 2019 #9 Palliative radiotherapy to L3-L5 to a dose of 20 Gy in 5 fractions finishing on February 08, 2019 #10 Alectinib initiated on February 13, 2019 #11 Increase in size from 2 mm to 4 mm of right superior frontal sulcus lesion on brain MRI on December 28, 2022 #12 SRT to 3 right frontal brain metastases seen on planning MRI scan initiated on February 01, 2023; completion on February 05, 2023 The patient is doing well now 6 months out from treatment completion. Her MRI appears stable. We will repeat an MRI in 3 months and see her back to go over the results. She verbalized satisfaction with this plan. I have spent 10 minutes caring for this patient including qftv-fb-iyme and hqi-arci-qw-face time. Signed by: bAisai Ortega M.D. 10/19/23 3:33 PM CDT [facility] [place] documented in this encounter Miscellaneous Notes * Addendum Note - Alla Keene C.N.A. - 10/19/2023 3:00 PM CDTEncounter addended by: Alla Keene C.N.A. on: 10/19/2023 3:41 PM Actions taken: Letter saved documented in this encounter Plan of Treatment Upcoming Encounters Date Type Department Care Team (Late st Contact Info) Description 11/16/2023 Orders Only [facility] [address] [place] [address] Jesscia Schulz APRN, C.N.P., D.N.P. [address] [place] [address] Screening Cancer Colon 01/26/2024 1:30 PM CDT Appointment Department of Radiation Oncology in [address], [place] [address] [place] [phone] Abisai Ortega M.D. [address] [place] [address] Scheduled Orders Name Type Priority Associated Diagnoses Orde r Schedule MR Brain without and with IV Contrast Imaging RAD - Routine (most inpatients and all outpatients) Malignant Neoplasm Of Lung Adenocarcinoma Right (HCC) Secondary Malignant Neoplasm Brain (HCC) Expected: 01/19/2024, Expires: 01/18/2025 Scheduled Referrals Name Type Priority Associated Diagnoses Order Schedule Radiation Oncology office visit (clinic) Outpatient Referral Routine Once for 1 Occurrences starting 10/19/2023 until 10/19/2023 Radiation Oncology office visit (clinic) Outpatient Referral Routine Expected: 01/21/2024, Expires: 01/18/2025 documented as of this encounter Visit Diagnoses Diagnosis Malignant Neoplasm Of Lung Adenocarcinoma Right (HCC)- Primary Secondary Malignant Neoplasm Brain (HCC) Screening Cancer Colon documented in this encounter Additional Health Concerns Infection Onset Date Last Indicated Resolved Time Protective Environment 01/07/2023 01/07/2023 Assessment Noted Time PHQ-9 Depression Total Score: 13 019 8:17 AM CDT documented as of this encounter Care Teams White Sourer Relationship Specialty Start Date End Date Jessica Schulz APRN, C.N.P., D.N.P. [address] [place] [address] PCP - General 12/12/20 documented as of this encounter
--- OUTSIDE RECORDS SUMMARY | 2023-11-15 14:31 | XMS_ITS | Clinical Summary ---
Author Organization [facility] Address [place], [place] [address] Care Team Providers Care Airplane Woodworker Name Role Phone Rachel Gomez MD Primary Care Provider [phone] Allergies No known active allergies Active Problems [...] (1 of 2) 09/29/2021 COVID-19 vaccine series (2022-24 season) 2023 Influenza for age 50-64 01/23/2024 Pneumococcal series for age 6-64 Aged Out No longer eligible based on patient's age to complete this topic Care Teams Airplane Woodworker Relationship Specialty Start Date End Date Rachel Gomez MD PCP - General Family Practice 09/05/14
--- NOTE | 2023-11-15 15:00 | CRLHL7_ITS ---
For Patients: As a result of the Century Cures Act, medical imaging exams and procedure reports are released immediately into your electronic medical record. You may view this report before your referring provider. If you have questions, please contact your health care provider. INDICATION: Follow-up lung cancer. TECHNIQUE: CT chest, abdomen and pelvis acquired with 110 mL Isovue 370 IV contrast. COMPARISON: 08/02/2023, 05/03/2023 chest abdomen pelvis CTs FINDINGS: CHEST: Cardiovascular structures: Heart size is normal. Thoracic aorta and main pulmonary artery are normal in caliber. Mediastinum and gray: No mass or adenopathy. Lungs and pleura: Right lower lobectomy. Minimal scarring in the right lung base. Remaining lungs are clear. Chest wall and axilla: No mass or adenopathy. Bones: No suspicious bone lesions. Unremarkable for age. 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 No new liver mass Gallbladder and bile ducts: Gallbladder is collapsed and contains multiple stones. No biliary dilation. Pancreas: Unremarkable. Spleen: Unremarkable. Adrenal glands: Unremarkable. Kidneys: Unremarkable. GI tract: Unremarkable. Vascular structures: Unremarkable. Lymph nodes: Unremarkable. Miscellaneous: Unremarkable. No free air or significant free fluid. Pelvic Organs: IUD in the uterus. Bones: No suspicious bone lesions. Stable defects in the superior and inferior endplates of L4 normal likely Schmorl`s nodes. IMPRESSION: 1. Right lower lobectomy. 2. No evidence for metastatic disease. Please note that all CT scans at this facility use dose modulation, iterative reconstruction, and/or weight-based dosing when appropriate to reduce radiation dose to as low as reasonably achievable. Dictated by Nikita Escalona MD @ 11/16/2023 1:45:33 PM (Electronically Signed)
== END 2023-11-15 14:29 | disposition home or self-care (01) ==
LOC: CT 14:29
PROVIDERS: Visit Provider Internal Medicine Hematology & Oncology
DX: C34.31 Malignant neoplasm of lower lobe, right bronchus or lung (principal); Z90.2 Acquired absence of lung [part of]; D18.09 Hemangioma of other sites
CPT/HCPCS: 71260; 74177; Q9967

== ENCOUNTER 2024-01-19 15:21 | Outpatient (CLI) | payer BC, SELFPAY ==
--- OUTSIDE RECORDS SUMMARY | 2024-01-19 15:26 | XMS_ITS | Referral Summary ---
Author Organization [facility] Address [address] [place] [address] Care Team Providers Care Ec Teacher Name Role Phone Dianelys Solorio M.D. Primary Care Provider [phone] Source Comments Patient records contain information from all sites at [facility]. For routine questions regarding patient records, call [phone] during business hours, M-F 8:00 AM - 5:00 PM Central Time. Record requests for emergency care only can be directed to [phone] at any time.[facility] Encounters Date Type Department Care Team Description 01/10/2024 8:30 AM CDT Office Visit Department of Family Medicine, [facility], in [place] [address] [place] [address] Norma Gandara, PEvetteA.Hannah. Preoperative Exam (Primary Dx); Pain Epigastric 12/21/2023 8:30 AM CDT Comprehensive Visit Department of General Surgery in [place], [place] [address], [place] [phone] Francesca Baxter M.D. Colic Biliary 12/20/2023 Clinical Communication Department of General Surgery in [place], [place] [address], [place] [address] Francesca Baxter M.D. 12/20/2023 Orders Only Department of General Surgery in [place], [place] [address] [place] [address] Francesca Baxter M.D. Colic Biliary (Primary Dx); Malignant Neoplasm Of Lung Adenocarcinoma Right (HCC) 12/16/2023 1:20 PM CDT - 12/16/2023 11:59 PM CDT Hospital Encounter Department of Radiology in [place], [place] [address] [place] [address] Noram Gandara P.A.-C. Colic Biliary Discharge Disposition: Home or Self Care 12/13/2023 8:00 AM CDT Office Visit Department of Family Medicine, [facility], in [place], [place] [address] [place] [address] Norma Gandara P.A.-C. Colic Biliary (Primary Dx) 11/16/2023 Orders Only [facility] [address] [place] [address] Jessica Schulz APRN, C.N.P., D.N.P. Screening Cancer Colon 11/02/2023 Orders Only [facility] [address] [place] [address] Jessica Schulz APRN, C.N.P., D.N.P. Screening Cancer Colon 10/19/2023 2:31 PM CDT - 10/19/2023 3:33 PM CDT Hospital Encounter Department of Radiation Oncology in [place], [place] [address] [place] [address] Abisai Ortega M.D. Malignant Neoplasm Of Lung Adenocarcinoma Right (HCC) (Primary Dx); Secondary Malignant Neoplasm Brain (HCC) from Last 3 Months Allergies No known active allergies Medications Medication Sig Dispensed Refills Start Date End Date Status acetaminophen 325 mg capsule as needed. 08/05/2015 Active levonorgestrel (MIRENA) 20 mcg/24 hours (5 yrs) 52 mg IUD by intrauterine route. 01/26/2007 Active ALECENSA 150 mg capsule 03/03/2019 Active Active Problems Problem Noted Date Diagnosed [...] Tobacco: Never Alcohol Use Standard Drinks/Week Comments Yes 1 (1 standard drink = 0.6 oz pure alcohol) A glass a couple times a month sometimes Humiliation, Afraid, Rape, and Kick questionnair e [...] and Family Once a week 12/08/2018 Attends [employer] 1 to 4 times per year [...] Answer Date Recorded PHQ-2 Score 0 06/22/2023 [facility] of Occupat ional Health - Occupational Stress [...] living? No 01/08/2023 Nutrition Answer Date Recorded On average, how many serving s of [...] your living situation today? [facility] 01/08/2023 Education Answer Date [...] Sign Reading Time Taken Comments Blood Pressure 114/77 01/10/2024 8:11 AM CDT Pulse 80 01/10/2024 8:11 AM CDT Temperature 35.6 ??C (96.1 ??F) 01/10/2024 8:11 AM CD T Respiratory Rate 16 01/10/2024 8:11 AM CDT Oxygen Saturation - - Inhaled Oxygen Concentration - - Weight 100 kg (220 lb 12.7 oz) 01/10/2024 8:11 A M CDT Height 164.4 cm (5' 4.72) 12/13/2023 7:41 AM CD T Body Mass Index 37.06 12/13/2023 7:41 AM CDT Plan of Treatment Upcoming Encounters Date Type Department Care Team (Late st Contact Info) Description 01/26/2024 1:30 PM CDT Appointment Department of Radiation Oncology in [place], [place] [address] [place] [phone] Abisai Ortega M.D. [address] [place] [address] Medical Devices Implanted Type Area Marine Pipefitter Helper Device Identifier Shelf Expiration Date Model / Serial / Lot Conversions - Default Historical Implant Device Implanted:05/2009 (Quantity not on file) Intrauterine Device Other/Legacy - See Implant Description Description:Device Status Te xt - IUD.Mirena Procedures Procedure Name Priority Date/Time Associated Diagnosis Comments US GALLBLADDER AND OR BILIARY DUCTS RAD - Routine (most inpatients and all outpatients) 12/16/2023 2:14 PM CDT Colic Biliary OUTSIDE CT BODY Routine 11/15/2023 2:55 PM CDT GLUCOSE, FASTING, S/P Routine 09/07/2014 10:25 AM CDT LIPID PANEL, S Routine 04/04/2013 7:24 AM TOYS AND GAMES HAND FINISHER BI BREAST SCREENING BILATERAL Routine 03/30/2013 4:07 PM [employer]YS AND GAMES HAND FINISHER PATHOLOGY FLOOR COVERING PRINTER CYTOLOGY Routine 03/30/2013 12:00 AM TOYS AND GAMES HAND FINISHER from Last 3 Months or Most Recently Relevant to Health Maintenance Results * US Gallbladder and or Biliary Ducts (12/16/2023 2:14 PM CDT) Anatomical Region Laterality Modality Abdomen, Ultrasound RST LOS, Ultrasound ARZ LOS, Ultrasound FLA LOS N/A Ultrasound Impressions 12/16/2023 2:57 PM CDT Cholelithiasis. No convincing evidence for acute cholecystitis, however consider short-term follow-up or HIDA scan if clinical concern persists. Narrative 12/16/2023 2:57 PM CDT EXAM: US GALLBLADDER AND OR BILIARY DUCTS COMPARISON: Correlation is made with 05/03/2023 CT FINDINGS: Gallbladder: Decompressed with multiple stones. Probable wall thickening. Negative sonographic Ledezma sign. Common duct: Not dilated. Aorta: Normal caliber. Increased echogenicity of the liver, compatible with steatosis. The partially visualized liver also demonstrates masses, previously characterized as hemangiomas. Procedure Note Fransisco Brown M.D. - 12/16/2023 EXAM: US GALLBLADDER AND OR BILIARY DUCTS COMPARISON: Correlation is made with 05/03/2023 CT FINDINGS: Gallbladder: Decompressed with multiple stones. Probable wall thickening.Negative sonographic Ledezma sign. Common duct: Not dilated. Aorta: Normal caliber. Increased echogenicity of the liver, compatible with steatosis. Thepartially visualized liver also demonstrates masses, previouslycharacterized as hemangiomas. IMPRESSION: Cholelithiasis. No convincing evidence for acute cholecystitis, howeverconsider short-term follow-up or HIDA scan if clinical concern persists. Norma Gandara P.A.-C. IMCarina US PROCEDURES * CT chest abdomen pelv w con-Outside CT Body (11/15/2023 2:55 PM CDT) Narrative [facility] - 12/20/2023 1:24 PM CDT This order has been created and auto-finalized to support the import of outside images. If available, original interpretation can be found on the Media Tab in Chart Review, in Document Viewer, as an image in QREADS or as an Addendum. If a re-interpretation or overread is required please follow defined workflow.?? Provider Not In System IMG CT PROCEDURES Performing Organization Address [facility] de Phone Number [facility]S NA * (ABNORMAL) Glucose, Fasting (09/07/2014 10:25 AM CDT) Last Intake 14 HR [facility] Glucose, P 101(H) 70 - 100 MG/DL [facility] 09/07/2014 10:2 5 AM CDT 09/07/2014 10:25 AM CDT Lonnie Moreland P.A.-C. LAB BLOOD NON ADD-ON Performing Organization Address [facility] de Phone Number [facility] [address] * (ABNORMAL) Lipid Panel (04/04/2013 7:24 AM TOYS AND GAMES HAND FINISHER) Calculated LDL 141(H) 0 - 100 MGDL POWERCHART Total Cholesterol/HDL Ratio 5.23(H) 2.20 - 4.40 POWERCHART Cholesterol, Total 204(H) <=200 MGDL POWERCHART HX HDL 39(L) 40 - 60 MGDL POWERCHART Triglycerides 119 <=150 MGDL POWERCHART HXLDL/HDL 4 POWERCHART Blood 04/04/2013 7:24 AM TOYS AND GAMES HAND FINISHER Rachel Foreman M.D. LAB BLOOD ADD-ON Performing Organization Address [facility] de Phone Number POWERCHART * BI Breast Screening Bilateral (03/30/2013 4:07 PM TOYS AND GAMES HAND FINISHER) Anatomical Region Laterality Modality Breast Bilateral Mammography 03/30/2013 4:07 PM TOYS AND GAMES HAND FINISHER Impressions 03/31/2013 10:19 AM TOYS AND GAMES HAND FINISHER Recommendations: ??I recommend a follow-up mammogram in [...] digital mammogram images. Narrative 03/31/2013 10:19 AM TOYS AND GAMES HAND FINISHER EXAM: MA Mammo Screening w/ CADD INDICATION: [...] performed on the digital mammogram images. Radha Easton R.T.(R), R.T.(R)(M) IMG B I PROCEDURES * Pathology FLOOR COVERING PRINTER Cytology (03/30/2013 12:00 AM TOYS AND GAMES HAND FINISHER) 03/30/[address] [facility] - 04/04/2013 1:28 PM TOYS AND GAMES HAND FINISHER [facility] in [address] [place], [place] ??[address] Patient Name: DEBORA RUBY COLTON Collected: 03/30/2013 Address: City/State/Zip: [address] [place], [place] [id number] Received: Reported: 03/31/2013 04/04/2013 Soc. Sec. #: ?/Age/Sex 1970 (Age: 42) ??F Physician(s): [place] FOREMAN MD Copy To: ? [facility] ??[id number] [address] [facility] [place], ??[place] ??[address] CYTOPATHOLOGY FLOOR COVERING PRINTER REPORT FINAL CYTOLOGIC DIAGNOSIS Pap Smear, Vagina [...] Rachel Foreman M.D. LAB PAP BLAS EL [facility] Organization Address City/State/ZIP Co de Phone Number [facility] from Last 3 Months or Most Recently Relevant to Health Maintenance Additional Health Concerns Infection Onset Date Last Indicated Protective Environment 01/07/2023 3 Care Teams Ec Teacher Relationship Specialty Start Date End Date Dianelys Solorio M.D. [address] [place] [address] [place] [phone] PCP - General Family Medicine 12/14/23
--- OUTSIDE RECORDS SUMMARY | 2024-01-19 15:26 | XMS_ITS ---
Author Organization [facility] Address [address] [place] [address] Care Team Providers Care Production Quality Manager Name Role Phone Unavailable Unavailable Unavailable Surgery Details Not on file Complications Check Surgery Details section. Procedure Estimated Blood Loss Check Surgery Details section. Procedure Findings Check Surgery Details section. Procedure Specimens Taken Check Surgery Details section.
--- OUTSIDE RECORDS SUMMARY | 2024-01-19 15:26 | XMS_ITS ---
Author Organization [facility] Address [address] [place] [address] Care Team Providers Care Director Regulatory Agency Name Role Phone Dianelys Solorio M.D. Primary Care Provider Active Problems Problem Noted Date Diagnosed [...] Treated Prescribed Fraction Dose Prescribed Total Dose [id number] 02/05/2023 4 3 of 3 900 cGy 2,700 cGy F1 L3-5 Spine 02/08/2019 6 5 of 5 400 cGy 2,000 cGy Reference Point Last Treated On Elapsed Days Session Dose Total Dose [id number] 02/05/2023 4 900 cGy 2,700 cGy [id number] 02/08/2019 6 400 cGy 2,000 cGy
--- OUTSIDE RECORDS SUMMARY | 2024-01-19 15:26 | XMS_ITS | Clinical Summary ---
Author Organization [facility] Address [address] [place] [address] Care Team Providers Care Plastic Welder Name Role Phone Dianelys Solorio M.D. Primary Care Provider [phone] Source Comments Patient records contain information from all sites at [facility]. For routine questions regarding patient records, call [phone] during business hours, M-F 8:00 AM - 5:00 PM Central Time. Record requests for emergency care only can be directed to [phone] at any time.[facility] Allergies No known active allergies Medications Medication [...] CDT Office Visit Department of Family Medicine, [facility], in [place] [address] [place] [address] Norma Gandara, P.A.-C. Preoperative Exam (Primary Dx); Pain Epigastric 12/21/2023 8:30 AM CDT Comprehensive Visit Department of General Surgery in [place], [place] [address] [place] [address] Francesca Baxter M.D. Colic Biliary 12/20/2023 Clinical Communication Department of General Surgery in [place], [place] [address] [place] [address] Francesca Baxter M.D. 12/20/2023 Orders Only Department of General Surgery in [place], [place] [address] [address] Francesca Baxter M.D. Colic Biliary (Primary Dx); Malignant Neoplasm Of Lung Adenocarcinoma Right (HCC) 12/16/2023 1:20 PM CDT - 12/16/2023 11:59 PM CDT Hospital Encounter Department of Radiology in [place], [place] [address] [place] [address] Norma Gandara, P.A.-C. Colic Biliary Discharge Disposition: Home or Self Care 12/13/2023 8:00 AM CDT Office Visit Department of Family Medicine, [facility], in [place], [place] [address] [place] [address] Norma Gandara, P.A.-C. Colic Biliary (Primary Dx) 11/16/2023 Orders Only [facility] [address] [place] [id number] Jessica Schulz APRN, C.N.P., D.N.P. Screening Cancer Colon 11/02/2023 Orders Only [facility]F [facility] [address] [place] [id number] Jessica Schulz APRN, C.N.P., D.N.P. Screening Cancer Colon 10/19/2023 2:31 PM CDT - 10/19/2023 3:33 PM CDT Hospital Encounter Department of Radiation Oncology in [place], [place] [address] [place] [address] Abisai Ortega M.D. Malignant Neoplasm Of Lung Adenocarcinoma Right (HCC) (Primary Dx); Secondary Malignant Neoplasm Brain (HCC) from Last 3 Months Immunizations Name Administration Dates Next Due Influenza, Unspecified 03/30/2013 SARS-COV-2 (COVID-19) - MODERNA(Discontinued) ,01/17/2021 Tdap 03/30/2013 Family History Medical History Relation Name Comments Lung cancer Aunt Coronary artery disease Father Christiano Curry Lung cancer Father Christiano Curry Lung cancer Maternal Grandfather Milton Nieves Cancer Maternal Grandmother Hyacinth Nieves Coronary artery disease Maternal Grandmother Hyacinth Nieves Diabetes Maternal Grandmother Hyacinth Nieves Lung cancer Mother's Brother Amol Gardner Psychiatric Mother's Sister Jo Ann Beebe Lung cancer Paternal Grandfather Lung cancer Paternal Grandmother Jasmin Curry Lung cancer Uncle Relation Name Status Comments Aunt Father Christiano Curry Maternal Grandfather Milton Nieves Maternal Grandmother Hyacinth Nieves Mother's Brother Amol Gardner Mother's Sister Jo Ann Beebe Paternal Grandfather Paternal Grandmother Jasmin Curry Uncle Social History Tobacco Use Types Packs/Day [...] and Family Once a week 12/08/2018 Attends [employer] Services 1 to 4 times per year [...] Answer Date Recorded PHQ-2 Score 0 06/22/2023 [facility] Occupat ional [facility] - Occupational [...] your living situation today? I have a [facility] place to live 01/08/2023 Education Answer [...] CDT Appointment Department of Radiation Oncology in [place], [place] [address] [place] [phone] Abisai Ortega M.D. [address] [place] [address] Health Maintenance Due Date Last Done Comments [...] Lipid (Cholesterol) Screening 04/04/2018 04/04/2013 COVID-19 Vaccine (2022- season) 2023 08/12/2021, 01/17/2021, 08/28/2020, Additional history exists DTaP,Tdap,and Td Vaccines (2 - Td or Tdap) 03/30/2023 03/30/2013 Influenza Vaccine (#1) 2024 02/28/2019, 2012 Depression Screening (Annual PHQ-2) Completed 06/23/2023, 06/22/2023 HPV Vaccines Aged Out No longer eligi ble based on patient's age to complete this topic Medical Devices Implanted Type Area Hatchery Worker Device Identifier Shelf Expiration Date Model / [...] LIPID PANEL, S Routine 04/04/2013 7:24 AM ABA THERAPIST BI BREAST SCREENING BILATERAL Routine 03/30/2013 4:07 PM ABA THERAPIST PATHOLOGY SOLDERING INSPECTOR CYTOLOGY Routine 03/30/2013 12:00 AM ABA THERAPIST from Last 3 Months or Most Recently [...] System IMG CT PROCEDURES Performing Organization Address City/[facility] de Phone Number IIMS NA * (ABNORMAL) Glucose, Fasting (09/07/2014 10:25 AM CDT) Last Intake 14 HR [facility] Glucose, P 101(H) 70 - 100 MG/DL [facility] 09/07/2014 10:2 5 AM CDT 09/07/2014 10:25 AM CDT Lonnei Moreland P.A.-C. LAB BLOOD NON ADD-ON Performing Organization Address [facility] de Phone Number [facility] [address] * (ABNORMAL) Lipid Panel (04/04/2013 7:24 AM ABA THERAPIST) Calculated LDL 141(H) 0 - 100 MGDL POWERCHART Total Cholesterol/HDL Ratio 5.23(H) 2.20 - 4.40 POWERCHART Cholesterol, Total 204(H) <=200 MGDL POWERCHART HX HDL 39(L) 40 - 60 MGDL POWERCHART Triglycerides 119 <=150 MGDL POWERCHART HXLDL/HDL 4 POWERCHART Blood 04/04/2013 7:24 AM ABA THERAPIST Rachel Foreman M.D. LAB BLOOD ADD-ON Performing Organization Address [facility] de Phone Number POWERCHART * BI Breast Screening Bilateral (03/30/2013 4:07 PM ABA THERAPIST) Anatomical Region Laterality Modality Breast Bilateral Mammography 03/30/2013 4:07 PM ABA THERAPIST Impressions 03/31/2013 10:19 AM ABA THERAPIST Recommendations: ??I recommend a follow-up mammogram in [...] digital mammogram images. Narrative 03/31/2013 10:19 AM ABA THERAPIST EXAM: MA Mammo Screening w/ CADD INDICATION: [...] performed on the digital mammogram images. Radha Aguillon.T.(R), R.T.(R)(M) IMG B I PROCEDURES * Pathology SOLDERING INSPECTOR Cytology (03/30/2013 12:00 AM ABA THERAPIST) 03/30/2013 Narrative M LAB - 04/04/2013 1:28 PM ABA THERAPIST [facility] in [address] [place], [place] ??[address] Patient Name: DEBORA RUBY COLTON Collected: 03/30/2013 Address: City/State/Zip: [address] [place], [place] ??[id number] Received: Reported: 03/31/2013 04/04/2013 Soc. Sec. #: ?/Age/Sex 1970 (Age: 42) ??F Physician(s): [place] FOREMAN MD Copy To: ? [facility] ??[id number] [address] [facility], ??[place] ??[address] CYTOPATHOLOGY SOLDERING INSPECTOR REPORT FINAL CYTOLOGIC DIAGNOSIS Pap Smear, Vagina [...] IF ASCUS Rachel Foreman M.D. LAB PAP COPBERRY EL [place] Organization Address City/State/ZIP Co de Phone Number [facility] LAB from Last 3 Months or Most Recently Relevant to Health Maintenance Additional Health Concerns Infection Onset Date Last Indicated Protective Environment 01/07/2023 3 Care Teams Plastic Welder Relationship Specialty Start Date End Date Dianelys Solorio M.D. [address] [place] [address] [place] [phone] PCP - General Family Medicine 12/14/23
--- OUTSIDE RECORDS SUMMARY | 2024-01-19 15:27 | XMS_ITS | Encounter Summary ---
Author Organization [facility] Address [address] [place] [address] Care Team Providers Care Billboard Poster Name Role Phone Dianelys Solorio M.D. Primary Care Provider [phone] Reason for Visit * Appointment Request (Routine) - Pending Review Specialty Diagnoses / Procedures Referred By Lito newberry Referred To Contact Family Medicine Referral ID Status Reason Start Date Expiration Date V isits Requested Visits Authorized [id number] Pending Review 12/21/2023 12/20/2024 1 1 Encounter Details Date Type Department Care Team (Late st Contact Info) Description 01/10/2024 8:30 AM CDT Office Visit Department of Family Medicine, [facility], in [place] [address] [place] [address] Norma Gandara, P.A.-CEvette [address] [place] [phone] Preoperative Exam (Primary Dx); Pain Epigastric Social History Tobacco Use Types Packs/Day [...] and Family Once a week 12/08/2018 Attends [employer] Services 1 to 4 times per year [...] Answer Date Recorded PHQ-2 Score 0 06/22/2023 [facility] Occupat ional Health - Occupational Stress [...] your living situation today? I have a [facility] place to live 01/08/2023 Education Answer [...] oz) 01/10/2024 8:11 A M CDT Height - - Body Mass Index 37.06 12/13/2023 7:41 AM CDT documented in this encounter Patient Instructions * Patient Instructions* Norma Gandara P.A.-C. - 01/10/2024 8:30 AM CDT No aspirin-containing products 7 days (01/13) prior to procedure or ibuprofen/Advil 24 hours before surgery. Tylenol/acetaminophen would be a safe option if needed. documented in this encounter Progress Notes * Norma Gandara P.A.-C. - 01/10/2024 8:30 AM CDT FAMILY MEDICINE PREOPERATIVE EXAM: PROPOSED SURGERY DATE: 01/21/2024. SURGEON: Dr. Tejeda. PROPOSED SURGERY: Colonoscopy. LOCATION: [facility]. SUBJECTIVE HISTORY OF PRESENT ILLNESS Debora Valdes is a pleasant 53 y.o. female who presents to the clinic today for preoperative anesthetic medical exam for the above-mentioned procedure. She states she is feeling well and has nocomplaints at this time. REVIEW OF SYSTEMS Constitutional: - Negative for fever and night sweats. Eyes: - Negative for visual problems. ENT: - Negative for difficulty hearing. Respiratory: - Negative for shortness of breath and wheezing. Cardiovascular: - Negative for chest pain, pressure or tightness and rapid or fluttering heart beat. Gastrointestinal: Positive for constipation and diarrhea. - Negative for heartburn. Genitourinary: - Negative for difficulty urinating and pain with urination. Hematologic: - Negative for bruises or bleeds easily. Psychiatric/Behavioral: Positive for loud snoring. - Negative for excessive daytime sleepiness/tiredness and stopping breathing, choking, or gasping while asleep. The following portions of the patient's history were reviewed and updated as appropriate: allergies, current medications, family history, medical history, social history, surgical history, and problem list. No Known Allergies Current Outpatient Medications: acetaminophen 325 mg capsule, as needed., Disp: , Rfl: ALECENSA 150 mg capsule, , Disp: , Rfl: levonorgestrel (MIRENA) 20 mcg/24 hours (5 yrs) 52 mg IUD, by intrauterine route., Disp: , Rfl: OBJECTIVE VITAL SIGNS BP 114/77 (BP Location: Left arm, Patient Position: Sitting, Cuff Size: Large) Pulse 80 Temp (!) 35.6 ??C (Temporal) Resp 16 Wt 100 kg BMI 37.06 kg/m?? PHYSICAL EXAMINATION General: Well-nourished, well-developed 53 y.o. in no apparent distress. Awake, alert, age appropriate. HEENT: Head is normocephalic, atraumatic. Pupils round and reactive bilaterally. EOM's intact. Conjunctiva and sclera are clear. TM's are normal bilaterally. Oropharynx pink and moist without exudateor erythema. Mallampati IV. Neck: Neck is supple without lymphadenopathy. Cardiovascular: Regular rate and rhythm without murmurs. Lungs: Clear to auscultation bilaterally with no adventitious sounds Skin: Warm, pink, and dry. No rashes or lesions Extremities: No peripheral edema. Neurologic: Alert and oriented x3. Bilateral patellar tendon DTRs 2+/4+. SURGICAL RISK FACTORS: 1. Cardiac: None. 2. Pulmonary: None. 3. History Bacterial Endocarditis: None. 3. Diabetes: None. 4. Obstructive sleep apnea: Snoring. Stop Bang Total Score: 5. Anesthesia reactions: None. 6. Bleeding or clotting disorders: None. 7.Anticoagulation: None 8. Infection/Immunosuppression: None. 9. GERD: None. 10. History of MRSA skin infections: None 11. Mallampati Class: IV. 12. ASA Class: II. ASSESSMENT / PLAN IMPRESSION/REPORT/PLAN: #1 Preoperative Exam #2 Pain Epigastric - This patient is medically optimized for the above-mentioned procedure. - She is capable of achieving greater than 4 METS without cardiopulmonary symptoms. - Advised no aspirin-containing products 7 days prior to procedure. - Medication instructions include: None. - No labs indicated at this time. - Follow-up as needed. All questions have been answered and those present are in agreement with this plan. Norma Gandara P.A.-C. documented in this encounter Plan of Treatment Upcoming Encounters Date Type Department Care Team (Late st Contact Info) Description 01/26/2024 1:30 PM CDT Appointment Department of Radiation Oncology in [place], [place] [address] [place] [phone] Abisai Ortega M.D. [address] [place] [address] documented as of this encounter Visit Diagnoses Diagnosis Preoperative Exam- Primary Pain Epigastric documented in this encounter Additional Health Concerns Infection Onset Date Last Indicated Resolved Time Protective Environment 01/07/2023 01/07/2023 Assessment Noted Time PHQ-9 Depression Total Score: 13 019 8:17 AM CDT documented as of this encounter Care Teams Billboard Poster Relationship Specialty Start Date End Date Dianelys Solorio M.D. [address] [place] [address] [place] [address] PCP - General Family Medicine 12/14/23 documented as of this encounter
--- OUTSIDE RECORDS SUMMARY | 2024-01-19 15:27 | XMS_ITS | Encounter Summary ---
Author Organization [facility] Address [address] [place] [address] Care Team Providers Care Chemical Technician Name Role Phone Jessica Schulz APRN C.N.P., D.N.PEvette Primary C are Provider Reason for Referral * Outpatient (Routine) - Authorized Specialty Diagnoses / Procedures Referred By Lito newberry Referred To Contact Radiation Oncology Sarai Yoon P.A.-C., M.S. [address] [place] [phone] Abisai Ortega M.D. [address] [place] [phone] Referral ID Status Reason Start Date Expiration Date V isits Requested Visits Authorized [id number] Authorized 10/19/2023 04/19/2025 1 1 Scheduling Instructions MRI brain prior at [facility]; please get report and images prior to visit * MRI/CAT/PET Scan (Routine) - Pending Review Specialty Diagnoses / Procedures Referred By Lito newberry Referred To Contact Radiology Diagnoses Malignant Neoplasm Of Lung Adenocarcinoma Right (HCC) Secondary Malignant Neoplasm Brain (HCC) Procedures MR Brain without and with IV Contrast Sarai Yoon P.A.-C., M.S. [address] [place] [phone] [facility] Region Referral ID Status Reason Start Date Expiration Date V isits Requested Visits Authorized [id number] Pending Review 10/19/2023 10/18/2024 1 1 * Outpatient (Routine) - Closed Specialty Diagnoses / Procedures Referred By Lito t Referred To Contact Radiation Oncology Abisai Ortega M.D. [address] [place] [phone] Abisai Ortega M.D. [address] [place] [phone] Referral ID Status Reason Start Date Expiration Date Visits Re quested Visits Authorized [id number] Closed 08/11/2023 02/09/2025 1 1 Scheduling Instructions Please schedule 1-2 days after brain MRI at [facility]. Please get images and report prior to visit. Reason for Visit * Outpatient (Routine) - Closed Specialty Diagnoses / Procedures Referred By Lito newberry Referred To Contact Radiation Oncology Abisai Ortega M.D. [address] [place] [phone] Abisai Ortega M.D. [address] [place] [phone] Referral ID Status Reason Start Date Expiration Date Visits Re quested Visits Authorized [id number] Closed 08/11/2023 02/09/2025 1 1 Encounter Details Date Type Department Care Team (Latest Contact Info) Description 10/19/2023 2:31 PM CDT - 10/19/2023 3:33 PM CDT Hospital Encounter Department of Radiation Oncology in [place], [place] [address] [place] [phone] Abisai Ortega M.D. [address] [place] [address] Malignant Neoplasm Of Lung Adenocarcinoma Right (HCC) [...] and Family Once a week 12/08/2018 Attends [employer] Services 1 to 4 times per year [...] Answer Date Recorded PHQ-2 Score 0 06/22/2023 [facility] of Occupat ional Health - Occupational Stress [...] your living situation today? I have a [facility] place to live 01/08/2023 Education Answer [...] Body Mass Index 37.92 06/23/2023 1:08 PM BOTTLING LINE ATTENDANT documented in this encounter Medications at Time of Discharge Medication Sig Dispensed Refills Start Date End Date acetaminophen 325 mg capsule as needed. 08/05/2015 ALECENSA 150 mg capsule 03/03/2019 levonorgestrel (MIRENA) 20 mcg/24 hours (5 yrs) 52 mg IUD by intrauterine route. 01/26/2007 omeprazole (PriLOSEC) [address] capsuleIndications:T enderness Epigastric Take 1 capsule (40 mg total) by mouth every morning before breakfast. 30 capsule 08/23/2023 12/13/2023 documented as of this encounter Progress Notes * Sarai Yoon P.A.-C., M.S. - 10/19/2023 3:00 PM CDT SUBJECTIVE DIAGNOSIS 1. Malignant Neoplasm Of Lung Adenocarcinoma Right (HCC) 2. Secondary Malignant Neoplasm Brain (HCC) SUPERVISED BY: Abisai Ortega M.D. ([id number]) HISTORY OF PRESENT ILLNESS Mrs. Debora Valdes [...] pazopanib therapy. She was seen by at [facility], and changed ALK communication to [...] received her first cycle of cisplatin plus SUPERVISOR FIBER LOCKING-16 from December 10 to December 17, her [...] completed on July 23, 2015 at the [facility]. She was seen in Medical Oncology by Dr. Gonzáles in [facility] on November 21, 2015 who discussed [...] Dr. Yaritza Taylor in Medical Oncology at [facility] who ordered Alectinib and proceeding with radiation therapy to L4 and repeat brain MRI 6 weeks after she starts systemic therapy. If there is evidence of DIRECTOR SPECIALTY progression consider gamma knife therapy. Observation of [...] 27Gy in 3 fractions. 04/20/2023 Critical Imaging [place] interpretation of outside brain MR IMPRESSION: Slight [...] lobe lung mass #3 Concurrent cisplatin and SUPERVISOR FIBER LOCKING 16 chemotherapy and definitive radiation therapy completed [...] We also offered to order for a [facility] Radiology interpretation of the imaging today, but the patient declined so an order was not placed. Dr. Ortega also reviewed the patient's imaging today and recommended continued monitoring with another brain MRI scan in 3 months. The patient would like the imaging done at [facility] and an order will be placed. She [...] Yoon P.A.-C., M.S. 10/19/2023 3:17 PM CDT [facility] [address] [place] [phone] Associated attestation - Abisai Ortega M.D. - [...] lobe lung mass #3 Concurrent cisplatin and SUPERVISOR FIBER LOCKING 16 chemotherapy and definitive radiation therapy completed [...] 10 minutes caring for this patient including bfmr-tq-lolt and diz-syqt-ol-face time. Signed by: Abisai Ortega M.D. 10/19/23 3:33 PM CDT [facility] [place] documented in this encounter Miscellaneous Notes * Addendum Note - Alla [place] C.N.A. - 10/19/2023 3:00 PM CDTEncounter addended by: Alla [place] C.NKoby on: 10/19/2023 3:41 PM Actions taken: Letter saved documented in this encounter Plan of Treatment Upcoming Encounters Date Type Department Care Team (Late st Contact Info) Description 01/26/2024 1:30 PM CDT Appointment Department of Radiation Oncology in [place], [place] [address] [place] [address] Abisai Ortega M.D. [address] [place] [address] Scheduled Orders Name Type Priority Associated Diagnoses [...] (HCC)- Primary Secondary Malignant Neoplasm Brain (HCC) documented in this encounter Additional Health Concerns Infection Onset Date Last Indicated Resolved Time Protective Environment 01/07/2023 01/07/2023 Assessment Noted Time PHQ-9 Depression Total Score: 13 019 8:17 AM CDT documented as of this encounter Care Teams Chemical Technician Relationship Specialty Start Date End Date Jessica Schulz APRN, C.N.P., D.N.P. [address] [place] [phone] PCP - General 12/12/20 12/13/23 documented as of this encounter
--- OUTSIDE RECORDS SUMMARY | 2024-01-19 15:27 | XMS_ITS | Encounter Summary ---
Author Organization [facility] Address [address] [place] [address] Care Team Providers Care Boiler Riveter Name Role Phone Jessica Schulz APRN C.N.P., D.N.P. Primary C are Provider Reason for Referral * Outpatient (Routine) - Closed Specialty Diagnoses / Procedures Referred By Lito newberry Referred To Contact General Surgery Diagnoses Colic Biliary Norma Gandara P.A.-C. [address] [place] [address] [facility] Referral ID Status Reason Start Date Expiration Date V isits Requested Visits Authorized [id number] Closed Specialty Services Required 12/13/2023 06/13/2025 1 1 * Outpatient (Routine) - Closed Specialty Diagnoses / Procedures Referred By Lito newberry Referred To Contact Diagnoses Colic Biliary Procedures US Gallbladder and or Biliary Ducts Norma Gandara P.A.-C. [address] [place] [address] [facility] Region Referral ID Status Reason Start Date Expiration Date Visits Re quested Visits Authorized [id number] Closed 12/13/2023 12/12/2024 1 1 Reason for Visit * Reason Comments Other Stomach issues since February of 2023 - randomly be fine and can be in incredible pain in ULQ radiates towards back that will last for a few hours and it will go away for a few months * Appointment Request (Routine) - Closed Specialty Diagnoses / Procedures Referred By Lito t Referred To Contact Family Medicine Referral ID Status Reason Start Date Expiration Date Visits Re quested Visits Authorized [id number] Closed 11/29/2023 11/28/2024 1 1 Encounter Details Date Type Department Care Team (Late st Contact Info) Description 12/13/2023 8:00 AM CDT Office Visit Department of Family Medicine, [facility], in [place], [place] [address] [place] [address] Norma Gandara P.A.-C. [address] [place] [address] Colic Biliary (Primary Dx) Social History Tobacco Use Types Packs/Day Years Used Date Smoking Tobacco: Former Cigarettes - 2014 Smokeless Tobacco: Never Tobacco Cessation:Counseling [...] and Family Once a week 12/08/2018 Attends [employer] Services 1 to 4 times per year [...] Answer Date Recorded PHQ-2 Score 0 06/22/2023 [facility] Occupat ional Health - [...] Sign Reading Time Taken Comments Blood Pressure 126/83 12/13/2023 7:41 AM CDT Pulse 98 12/13/2023 7:41 AM CDT Temperature 35.4 ??C (95.7 ??F) 12/13/2023 7:41 AM CD T Respiratory Rate 16 12/13/2023 7:41 AM CDT Oxygen Saturation - - Inhaled Oxygen Concentration - - Weight 102 kg (225 lb 1.4 oz) 12/13/2023 7:41 AM CDT Height 164.4 cm (5' 4.72) 12/13/2023 7:41 AM CD T Body Mass Index 37.78 12/13/2023 7:41 AM CDT documented in this encounter Patient Instructions * Attachments The following attachments cannot be sent through Care Everywhere. * Gallstones (Sami) documented in this encounter Progress Notes * Norma Gandara P.A.-C. - 12/13/2023 8:00 AM CDT SUBJECTIVE CHIEF COMPLAINT/REASON FOR VISIT Chief Complaint Patient presents with Other Stomach issues since February of 2023 - randomly be fine and can be in incredible pain in ULQ radiates towards back that will last for a few hours and it will go away for a few months HISTORY OF PRESENT ILLNESS Debora Valdes is a pleasant 53 y.o. female who presents to the clinic today for evaluation ofongoing stomach pain. Patient reports 4 different episodes of epigastric pain. She states that pain occurs suddenly and intensifies with pain typically lasting 48 hours. She notes radiation of pain from epigastric region into the middle of her back. She states for the next 2 days she will feel like she was punched in the stomach. Most frequent episode occurred middle of November when she was driving back from [facility] the middle of the morning, she had not eaten that day. Previous episode occurred in the evening when she was driving home after eating dinner at a restaurant. She denies fever, chills, nausea, vomiting, diarrhea, constipation, GERD. She was evaluated for similar symptoms earlier this year, thought to be related to peptic ulcer and was treated with omeprazole no significant change in symptoms, although she was only had 1 episode since then. Patient does participate in regular cancer screening, she states that there have not been any abnormalities in her blood work although these are not available for review. REVIEW OF SYSTEMS Pertinent positive ROS are listed above in HPI. 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 in no apparent distress. Awake, alert, age appropriate. HEENT: Head is normocephalic, atraumatic. Conjunctivae and sclerae are clear. Cardiovascular: Regular rate and rhythm without murmurs. Lungs: Clear to auscultation bilaterally with no adventitious sounds Abdomen: Bowel sounds present in all quadrants. Soft, non-tender with no palpable organomegaly. Ledezma sign negative. ASSESSMENT / PLAN IMPRESSION/REPORT/PLAN: #1 Colic Biliary -Patient with CT abdomen and pelvis 05/12/2023 which did show biliary stones. Based on symptoms high suspicion for biliary colic. Patient with increased risk factors for gallbladder disease includingage, gender and BMI. Will further evaluate with ultrasound of gallbladder and follow-up General surgery to discuss definitive management. Encouraged diet low in fatty/greasy foods. If patient develops severe abdominal pain associated with fever, chills, nausea, vomiting she should be seen in emergency department for expedited evaluation. - US Gallbladder and or Biliary Ducts; Future; Expected date: 12/13/2023 - General Surgery - General consult (clinic); Future; Expected date: 12/13/2023 All questions have been answered. Patient demonstrated understanding and verbalized agreement with the plan. Norma Gandara P.A.-C. documented in this encounter Plan of Treatment Upcoming Encounters Date Type Department Care Team (Late st Contact Info) Description 01/26/2024 1:30 PM CDT Appointment Department of Radiation Oncology in [place], [place] [address] [place] [phone] Abisai Ortega M.D. [address] [place] [address] Scheduled Referrals Name Type Priority Associated Diagnoses Orde r Schedule General Surgery - General consult (clinic) Outpatient Referral Routine Colic Biliary Expected: 12/13/2023, Expires: 03/14/2025 documented as of this encounter Results * US Gallbladder and or Biliary [...] HIDA scan if clinical concern persists. Norma BUSTAMANTE US PROCEDURES documented in this encounter Visit Diagnoses Diagnosis Colic Biliary- Primary Colic Biliary documented in this encounter Additional Health Concerns Infection Onset Date Last Indicated Resolved Time Protective Environment 01/07/2023 01/07/2023 Assessment Noted Time PHQ-9 Depression Total Score: 13 01/17/ 019 8:17 AM CDT documented as of this encounter Care Teams Boiler Riveter Relationship Specialty Start Date End Date Jessica Schulz APRN, C.N.P., D.N.P. [address], [place] [phone] PCP - General 12/12/20 12/13/23 documented as of this encounter
--- OUTSIDE RECORDS SUMMARY | 2024-01-19 15:27 | XMS_ITS | Encounter Summary ---
Author Organization [facility] Address [address] [place] [address] Care Team Providers Care Hand Candle Dipper Name Role Phone Dianelys Solorio M.D. 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 [address] [place] [address] [facility] Referral ID Status Reason Start Date Expiration Date V isits Requested Visits Authorized [id number] Pending Review 12/20/2023 12/19/2024 1 1 Encounter Details Date Type Department Care Team (Late st Contact Info) Description 12/20/2023 Orders Only Department of General Surgery in [place], [place] [address] [place] [address] Francesca Baxter M.D. [address] [place] [address] Colic Biliary (Primary Dx); Malignant Neoplasm Of Lung Adenocarcinoma Right (HCC) Social History Tobacco Use Types Packs/Day [...] Answer Date Recorded PHQ-2 Score 0 06/22/2023 [facility] [place] of Occupat ional Health - Occupational Stress [...] living situation today? I have a [facility] place to live 01/08/2023 Education Answer Date [...] CDT Appointment Department of Radiation Oncology in [place], [place] [address] [place] [phone] Abisai Ortega M.D. [address] [place] [address] Scheduled Orders Name Type Priority Associated Diagnoses Orde r Schedule CBC without Differential Lab Routine Colic Biliary Malignant Neoplasm Of Lung Adenocarcinoma Right (HCC) Expected: 12/20/2023, Expires: 03/21/2025 Comprehensive Metabolic Panel Lab Routine Colic Biliary Malignant Neoplasm Of Lung Adenocarcinoma Right (HCC) Expected: 12/20/2023, Expires: 03/21/2025 CT Abdomen Pelvis with IV Contrast Imaging RAD - Routine (most inpatients and all outpatients) Colic Biliary Malignant Neoplasm Of Lung Adenocarcinoma Right (HCC) Expected: 12/20/2023, Expires: 03/21/2025 documented as of this encounter Visit Diagnoses Diagnosis Colic Biliary- Primary Malignant Neoplasm Of Lung Adenocarcinoma Right (HCC) documented in this encounter Additional Health Concerns Infection Onset Date Last Indicated Resolved Time Protective Environment 01/07/2023 01/07/2023 Assessment Noted Time PHQ-9 Depression Total Score: 13 01/17/ 019 8:17 AM CDT documented as of this encounter Care Teams Hand Candle Dipper Relationship Specialty Start Date End Date Dianelys Solorio M.D. [address] [place] [phone] PCP - General Family Medicine 12/14/23 documented as of this encounter
--- OUTSIDE RECORDS SUMMARY | 2024-01-19 15:27 | XMS_ITS | Encounter Summary ---
Author Organization [facility] Address [address] [place] [address] Care Team Providers Care Communication Equipment Mechanic Name Role Phone Dianelys Solorio M.D. Primary Care Provider Reason for Referral * Outpatient (Routine) - Closed Specialty Diagnoses / Procedures Referred By Lito newberry Referred To Contact Diagnoses Colic Biliary Procedures US Gallbladder and or Biliary Ducts Norma Gandara P.A.-CEvette [address] [place] [phone] [facility] Referral ID Status Reason Start Date Expiration Date Visits Re quested Visits Authorized [id number] Closed 12/13/2023 12/12/2024 1 1 Reason for Visit * Outpatient (Routine) - Closed Specialty Diagnoses / Procedures Referred By Lito newberry Referred To Contact Diagnoses Colic Biliary Procedures US Gallbladder and or Biliary Ducts Norma Gandara P.AEvette-CEvette [address] [place] [phone] [facility] Referral ID Status Reason Start Date Expiration Date Visits Re quested Visits Authorized [id number] Closed 12/13/2023 12/12/2024 1 1 Encounter Details Date Type Department Care Team (Latest Contact Info) Description 12/16/2023 1:20 PM CDT - 12/16/2023 11:59 PM CDT Hospital Encounter Department of Radiology in [place], [place] [address] [address] Norma Gandara P.A.-C. [address] [facility] [phone] Colic Biliary Discharge Disposition: Home or Self Care Social History Tobacco Use Types Packs/Day Years Used Date Smoking Tobacco: Former Cigarettes 1 1 - 2014 Smokeless Tobacco: Never Alcohol [...] and Family Once a week 12/08/2018 Attends [employer] 1 to 4 times per year [...] Answer Date Recorded PHQ-2 Score 0 06/22/2023 [facility] [place] of Occupat ional Health - Occupational Stress [...] living situation today? I have a [facility] place to live 01/08/2023 Education Answer [...] PM CDT documented as of this encounter Medications at Time of Discharge Medication Sig Dispensed Refills Start Date End Date acetaminophen 325 mg capsule as needed. 08/05/2015 ALECENSA 150 mg capsule 03/03/2019 levonorgestrel (MIRENA) 20 mcg/24 hours (5 yrs) 52 mg IUD by intrauterine route. 01/26/2007 documented as of this encounter Plan of Treatment Upcoming Encounters Date Type Department Care Team (Late st Contact Info) Description 01/26/2024 1:30 PM CDT Appointment Department of Radiation Oncology in [place], [place] [address] [place] [phone] Abisai Ortega M.D. [address] [place] [address] documented as of this encounter Procedures Procedure Name Priority Date/Time Associated Diagnosis Comments US GALLBLADDER AND OR BILIARY DUCTS RAD - Routine (most inpatients and all outpatients) 12/16/2023 2:14 PM CDT Colic Biliary documented in this encounter Results * US Gallbladder and [...] persists. Norma Gandara P.A.-C. IMC[facility] US PROCEDURES documented in this encounter Visit Diagnoses Diagnosis Colic Biliary documented in this encounter Additional Health Concerns Infection Onset Date Last Indicated Resolved Time Protective Environment 01/07/2023 01/07/2023 Assessment Noted Time PHQ-9 Depression Total Score: 13 01/17/ 019 8:17 AM CDT documented as of this encounter Care Teams Communication Equipment Mechanic Relationship Specialty Start Date End Date Dianelys Solorio M.D. [address] [place] [phone] PCP - General Family Medicine 12/14/23 documented as of this encounter
--- OUTSIDE RECORDS SUMMARY | 2024-01-19 15:27 | XMS_ITS | Clinical Summary ---
Author Organization [facility] Address [place], [place] [address] Care Team Providers Care Battery Engineer Name Role Phone Norma Gandara PA-C Primary Care Provider [phone] Allergies No known active allergies Medications Medication Sig Dispensed Refills Start Date End Date Status alectinib (Alecensa) 150 mg cap Take 600 mg by mouth two times daily. Active levonorgestrel (Mirena) 20 mcg/24 hours (8 yrs) 52 mg intrauterine device (IUD) Inject 1 Device intrauterine one time. Active Active Problems Problem Noted Date Diagnosed Date Non-small cell lung cancer Social History Tobacco Use Types Packs/Day Years Used Date Smoking Tobacco: Never Assessed Sex and Gender Information Value Date Recorded Sex Assigned at Not on file Gender Identity Not on file Sexual Orientation Not on file Obstetrics History Last Filed Vital Signs Vital Sign Reading Time Taken Comments Blood Pressure - - Pulse - - Temperature - - Respiratory Rate - - Oxygen Saturation - - Inhaled Oxygen Concentration - - Weight 100 kg (220 lb 7.4 oz) 01/11/2024 7:00 AM CDT Height 164.4 cm (5' 4.72) 01/11/2024 7:00 AM CD T Body Mass Index 37 01/11/2024 7:00 AM CDT Plan of Treatment Upcoming Encounters Date Type Department Care Team (Late st Contact Info) Description 01/21/2024 8:15 AM CDT Hospital Encounter [facility] [address] [place] [address] Francesca Baxter MD [address] [place] [address] 01/21/2024 8:15 AM CDT Anesthesia Event [facility] [address] [place] [address] [place] [address] [place] [address] 01/21/2024 8:15 AM CDT - 01/21/2024 9:23 AM CDT Surgery [facility] [address] [place] [address] Francesca Baxter MD [address] [place] [address] COLONOSCOPY Scheduled Procedures Name Priority Associated Diagnoses Date/Ti me COLONOSCOPY SCREENING, ABDOMINAL PAIN 01/21/2024 8:15 AM CDT ESOPHAGOGASTRODUODENOSCOPY SCREENING, ABDOMINAL PAIN 01/21/2024 8:15 AM CDT Health Maintenance Due Date Last Done Comments [...] 09/29/2021 COVID-19 vaccine series (2022-24 season) 2023 08/12/2021, 01/17/2021, 08/28/2020, Additional history exists Influenza for age 50-64 01/23/2024 Pneumococcal series for age 6-64 Aged Out No longer eligible based on patient's age to complete this topic Care Teams Battery Engineer Relationship Specialty Start Date End Date Norma Gandara PA-C [address] [place] [address] [address] [address] PCP - General Physician Personal Financial Planner 01/10/24
--- OUTSIDE RECORDS SUMMARY | 2024-01-19 15:27 | XMS_ITS | Encounter Summary ---
Author Organization [facility] Address [address] [place] [address] Care Team Providers Care Tree Loader Meat Name Role Phone Dianelys Solorio M.D. Primary Care Provider [phone] Reason for Referral * Outpatient (Routine) - Authorized Specialty Diagnoses / Procedures Referred By Contact Referred To Contact Gastroenterology and Hepatology Diagnoses Colic Biliary Procedures Gastroenterology and Hepatology - Hepatobiliary eConsult Francesca Baxter M.D. [address] [place] [address] [facility] Referral ID Status Reason Start Date Expiration Date V isits Requested Visits Authorized [id number] Authorized 12/21/2023 12/20/2024 1 1 Reason for Visit * Reason Comments Consult Cholelithiasis Started last er and had has had 4 bad episodes. Nauseated and pain after eating and the last one in November had not eaten anything yet. * Outpatient (Routine) - Closed Specialty Diagnoses / Procedures Referred By Lito t Referred To Contact General Surgery Diagnoses Colic Biliary Norma Gandara P.A.-C. [address] [place] [address] [facility] Referral ID Status Reason Start Date Expiration Date V isits Requested Visits Authorized [id number] Closed Specialty Services Required 12/13/2023 06/13/2025 1 1 Encounter Details Date Type Department Care Team (Late st Contact Info) Description 12/21/2023 8:30 AM CDT Comprehensive Visit Department of General Surgery in [place], [place] [address] [place] [address] Francesca Baxter M.D. [address] [place] [address] Colic Biliary Social History Tobacco Use Types Packs/Day Years Used Date Smoking Tobacco: Former Cigarettes 2014 Smokeless Tobacco: Never Tobacco Cessation:Counseling Given: [...] Score 0 06/22/2023 [facility] - Occupational Stress Questionnaire Answer Date [...] PM CDT documented as of this encounter Consult Notes * Radha Jensen D.O. - 12/21/2023 8:30 AM CDT GENERAL SURGERY CONSULTATION REASON FOR CONSULT Evaluation of Consult and Cholelithiasis (Started last January and had has had 4 bad episodes. Nauseated and pain after eating and the last one in November had not eaten anything yet. ). She was referred by Norma Gandara P.A.-C. SUBJECTIVE HISTORY OF PRESENT ILLNESS Ms. Valdes is a 53 y.o. female with 4 prior episodes of epigastric pain that radiates to the middleof her back. Most recent episode occurred mid November. Three out of her four episodes have occurred immeidately after eating. She was started on omeprazole a few weeks ago. Denies fever, chills, nausea,emesis, diarrhea, or constipation. 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 Gallbladder ultrasound on 12/16/2023 again showed cholelithiasis without evidence for acute cholecystitis and a normal common bile duct. Most recent LFTs are within normal limits. Surgical history consists of thoracotomy for lung adenocarcinoma. She reports prior radiation to a lymph node located within her upper abdominal cavity. Pertinent medications include alectinib. Denies use of anticoagulation. No prior surgeries on the abdomen. 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 Flexible bronchoscopy: airway inspection, biopsy visible lesions OTHER CONVERTED SHX (SEE COMMENT) N/A 09/12/2014 4. Flexible bronchoscopy: EBUS-TBNA (Endobronchial Ultrasound Guided Transbronchial Needle Aspiration) THORACOTOMY - LUNG LOWER LOBECTOMY WITH POSSIBLE MEDIASTINAL LYMPHADENECTOMY Right 03/11/2015 Thoracotomy - Lung Lower Lobectomy with Possible Mediastinal Lymphadenectomy No Known Allergies Current Outpatient Medications: acetaminophen 325 mg capsule, as needed., Disp: , Rfl: ALECENSA 150 mg capsule, , Disp: , Rfl: levonorgestrel (MIRENA) 20 mcg/24 hours (5 yrs) 52 mg IUD, by intrauterine route., Disp: , Rfl: Family History Problem Relation Name Age of Onset Lung cancer Father Cancer Maternal Grandmother Lung cancer Maternal Grandfather Lung cancer Paternal Grandfather Lung cancer Aunt Lung cancer Uncle Social History Socioeconomic History Marital status: Life Partnership Spouse name: Not on file Number of children: 3 Years of education: Not on file Highest education level: Associate degree: occupational, technical, or vocational program Occupational History Not on file Tobacco Use Smoking status: Former Current packs/day: 0.00 Average packs/day: 1 pack/day for 23.0 years (23.0 ttl pk-yrs) Types: Cigarettes Start date: 1991 Quit date: 2014 Years since quittin.5 Smokeless tobacco: Never Vaping Use Vaping status: never used Substance and Sexual Activity Alcohol use: Not Currently Drug use: Never Sexual activity: Defer Other Topics Concern Not on file Social History Narrative Not on file Social Determinants of Health Food Insecurity: No Food Insecurity (01/08/2023) Hunger Vital Sign Worried About Running Out of Food in the Last Year: Never true Ran Out of Food in the Last Year: Never true Transportation Needs: No Transportation Needs (01/08/2023) PRAPARE - Transportation Lack of Transportation (Medical): No Lack of Transportation (Non-Medical): No Physical Activity: Insufficiently Active (01/08/2023) Exercise Vital Sign Days of Exercise per Week: 3 days Minutes of Exercise per Session: 30 min Intimate Partner Violence: Not At Risk (01/08/2023) Humiliation, Afraid, Rape, and Kick questionnaire Fear of Current or Ex-Partner: No Emotionally Abused: No Physically Abused: No Sexually Abused: No Housing Stability: Low Risk (01/08/2023) Housing Stability Housing: Living Situation: I have a steady place to live REVIEW OF SYSTEMS A full 14 point review of systems was reviewed with the patient. Systems reviewed include: General,HENT, Eyes, Cardiovascular, Respiratory, Gastrointestinal, Genitourinary, Skin, Musculoskeletal, Endocrine, Hematologic, Neurologic, Psychiatric and Allergic. All pertinent items are listed in the His tory of Present Illness, Past Medical History and Past Surgical History. All other systems are negative. OBJECTIVE PHYSICAL EXAM There were no vitals filed for this visit. GENERAL: Well-developed, well-nourished. In no acute distress. Sitting comfortably in examination room. HEENT: Head is atraumatic, normocephalic. Symmetrical features. External ears and nose normal. . EYES: Pupils equal, round, reactive to light. Extraocular motion intact. No scleral icterus. LUNGS: Normal respiratory effort. No cough. ABDOMEN: Abdomen is soft. Non-distended. No masses or organomegaly detected. MUSCULOSKELETAL: Moves all extremities. No deformities or lesions. No peripheral edema. SKIN: Warm and dry. No rashes or jaundice. NEUROLOGIC: Alert and oriented x3. Cranial nerves 2 through 12 grossly intact. Normal strength and sensation in all four extremities. PSYCHIATRIC: Normal affect. Pleasant and cooperative. Diagnostics LABORATORY: Reviewed in the electronic medical record under laboratory tab. Normal LFTs IMAGING: Gallbladder ultrasound 12/16/2023: Cholelithiasis. No convincing evidence for acute cholecystitis, however consider short-term follow-up or HIDA scan if clinical concern persists. CT on 05/12/2023 and 11/15/2023 which showed cholelithiasis and cavernous hemangiomas in the caudateand medial left hepatic lobe. ASSESSMENT / PLAN #Epigastric Pain We discussed the pathophysiology of gallbladder disease with the patient. Treatment options of observation with diet modifications vs. surgery were discussed as well as the pros/cons of each. We discussed that surgery may be complicated by nearby cavernous hemangiomas. Due to the location of her symptoms we discussed the option of undergoing EGD to assist in workup. She has not undergone any formof colon cancer screening and would like to proceed with combined EGD and colonoscopy. She was educated on diet modification including cutting out fatty and greasy foods. She should continue taking her proton pump inhibitor. We described the signs and symptoms of acute cholecystitis and ascending cholangitis, and recommended the patient seek immediate medical attention if any these were to occur. The patient will call with any questions or concerns, otherwise we will see them on the planned endoscopy date. Patient was seen and discussed with Dr. Nikhil Jensen D.O. Associated attestation - Francesca Baxter M.D. - 12/21/2023 10:49 AM CDT I have seen and examined the patient. Overall, her symptoms are most consistent with biliary colic.However, given her history of radiation in the vicinity I think it is prudent to proceed with EGD prior to any surgical intervention. We will plan a screening colonoscopy also as he has not undergoneany colon cancer screening yet. I have also placed an e-consult to hepatobiliary in regard to the associated hemangiomas and any additional imaging that may be suggested prior to surgical intervention. documented in this encounter Plan of Treatment Upcoming Encounters Date Type Department Care Team (Late st Contact Info) Description 01/26/2024 1:30 PM CDT Appointment Department of Radiation Oncology in [place], [place] [address] [place] [address] Abisai Ortega M.D. [address] [place] [address] documented as of this encounter Visit Diagnoses Diagnosis Colic Biliary documented in this encounter Additional Health Concerns Infection Onset Date Last Indicated Resolved Time Protective Environment 01/07/2023 01/07/2023 Assessment Noted Time PHQ-9 Depression Total Score: 13 01/17/ 019 8:17 AM CDT documented as of this encounter Care Teams Tree Loader Meat Relationship Specialty Start Date End Date Dianelys Solorio M.D. [address] [place] [address] PCP - General Family Medicine 12/14/23 documented as of this encounter
--- OUTSIDE RECORDS SUMMARY | 2024-01-19 15:27 | XMS_ITS | Encounter Summary ---
Author Organization [facility] Address [address] [place] [address] Care Team Providers Care Venetian Blind Tape Cutter Name Role Phone Jessica Schulz APRN, C.N.P., D.N.P. Primary C are Provider Encounter Details Date Type Department Care Team (Late st Contact Info) Description 11/02/2023 Orders Only [facility] [address] [place] [id number] Jessica Schulz APRN, C.N.P., D.N.P. [address] [place] [address] Screening Cancer Colon Social History [...] Answer Date Recorded PHQ-2 Score 0 06/22/2023 [facility] - Occupational [...] your living situation today? I have a [place] place to live 01/08/2023 Education Answer Date [...] CDT Appointment Department of Radiation Oncology in [place], [place] [address] [place] [address] Abisai Ortega M.D. [address] [place] [address] Scheduled Orders Name Type Priority Associated Diagnoses [...] documented as of this encounter Care Teams Venetian Blind Tape Cutter Relationship Specialty Start Date End Date Jessica Schulz APRN, C.N.P., D.N.P. [address] [place] [address] PCP - General 12/12/20 12/13/23 documented as of this encounter
--- OUTSIDE RECORDS SUMMARY | 2024-01-19 15:27 | XMS_ITS | Encounter Summary ---
Author Organization [facility] Address [address] [place] [address] Care Team Providers Care Internet Developer Name Role Phone Dianelys Solorio M.D. Primary Care Provider Encounter Details Date Type Department Care Team (Late st Contact Info) Description 12/20/2023 Clinical Communication Department of General Surgery in [place], [place] [address] [place] [address] Francesca Baxter M.D. [address], [place] [address] Social History Tobacco Use Types [...] Answer Date Recorded PHQ-2 Score 0 06/22/2023 [facility] [...] living situation today? I have a [facility] [place] place to live 01/08/2023 Education Answer Date [...] Miscellaneous Notes * Telephone Encounter - Yasmin Renteria L.P.N. - 12/20/2023 12:00 PM CDT ----- Message from Francesca Stern M.D. sent at 12/20/2023 11:53 AM CDT ----- This patient is on my schedule tomorrow to talk about her gallbladder. I have reviewed her history of metastatic lung cancer. She needs to have a CT abd/pelvis for further evaluation. I am happy to see her if she still wants to come in tomorrow. documented in this encounter Plan of Treatment Upcoming Encounters Date Type Department Care Team (Late st Contact Info) Description 01/26/2024 1:30 PM CDT Appointment Department of Radiation Oncology in [place], [place] [address] [place] [phone] Abisai Ortega M.D. [address] [place] [address] documented as of this encounter Visit Diagnoses Not on filedocumented in this encounter Additional Health Concerns Infection Onset Date Last Indicated Resolved Time Protective Environment 01/07/2023 01/07/2023 Assessment Noted Time PHQ-9 Depression Total Score: 13 01/17/ 019 8:17 AM CDT documented as of this encounter Care Teams Internet Developer Relationship Specialty Start Date End Date Dianelys Solorio M.D. NPGayle: [phone] [address] [place] [address] [place] [phone] PCP - General Family Medicine 12/14/23 documented as of this encounter
--- OUTSIDE RECORDS SUMMARY | 2024-01-19 15:27 | XMS_ITS | Encounter Summary ---
Author Organization [facility] Address [address] [place] [address] Care Team Providers Care Computer Compositor Name Role Phone Jessica Schulz APRN, C.N.P., D.N.P. Primary C are Provider Encounter Details Date Type Department Care Team (Late st Contact Info) Description 11/16/2023 Orders Only [facility]F [facility] [address] [place] [phone] Jessica Schulz APRN, C.N.P., D.N.P. [address] [place] [address] Screening Cancer Colon Social History [...] Answer Date Recorded PHQ-2 Score 0 06/22/2023 [facility] - Occupational [...] CDT Appointment Department of Radiation Oncology in [place], [place] [address] [place] [address] Abisai Ortega M.D. [address] [place] [address] documented as of this encounter Visit Diagnoses Diagnosis Screening Cancer Colon documented in this encounter Additional Health Concerns Infection Onset Date Last Indicated Resolved Time Protective Environment 01/07/2023 01/07/2023 Assessment Noted Time PHQ-9 Depression Total Score: 13 019 8:17 AM CDT documented as of this encounter Care Teams Computer Compositor Relationship Specialty Start Date End Date Jessica Schulz APRN, C.N.P., D.N.P. [address] [place] [address] PCP - General 12/12/20 12/13/23 documented as of this encounter
--- NOTE | 2024-01-19 15:30 | CRLHL7_ITS ---
For Patients: As a result of the Century Cures Act, medical imaging exams and procedure reports are released immediately into your electronic medical record. You may view this report before your referring provider. If you have questions, please contact your health care provider. Indication: Lung cancer staging Technique: Noncontrast sagittal T1, axial FLAIR, T2 turbo spine echo, and diffusion weighted images. Supplemental post contrast T1 weighted axial and coronal sequences are provided after administration of 20 mL gadolinium-based IV contrast. Comparison: 09/07/2022 MRI Findings: The ventricles, sulci and gyri are normal size, shape and contour for age. The midline structures are centrally located with no evidence of shift. There are no suspicious intra or extra-axial fluid collections. No evidence of restricted diffusion to suggest acute ischemia. 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 Expected flow voids in the cavernous carotids and basilar artery. Stable scattered foci of T2 prolongation in the supratentorial white matter nonspecific but likely due to chronic microangiopathic changes. Enlargement of a 4 mm focus of enhancement in the right middle frontal gyrus previously 3 mm (series 13, image 43). Enlargement of a 2 mm focus of enhancement in the right head of the caudate nucleus previously nearly imperceptible (series 13, image 68). Enlargement of a 4 mm focus enhancement in the right inferolateral frontal lobe (series 13, image 80). New 3 mm focus of enhancement in the right superior frontal gyrus (series 13, image 21). Mild mucosal thickening in the left maxillary sinus. No pathologic susceptibility artifacts. Impression: 1. New enhancing lesion in the right superior frontal gyrus concerning for metastasis. Enlargement of metastases in the right middle frontal gyrus, right inferolateral frontal lobe, and right head of the caudate nucleus. 2. No significant edema. No mass effect. 3. 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 Dictated by Sunny Cazares MD @ 01/20/2024 9:40:12 AM (Electronically Signed)
== END 2024-01-19 15:22 | disposition home or self-care (01) ==
PROVIDERS: PCP Physician Assistant; Visit Provider Physician Assistant
DX: C34.91 Malignant neoplasm of unspecified part of right bronchus or lung (principal); C79.31 Secondary malignant neoplasm of brain
CPT/HCPCS: 70553; A9575

== ENCOUNTER 2024-02-28 15:23 | Outpatient (CLI) | payer BC, SELFPAY ==
--- OUTSIDE RECORDS SUMMARY | 2024-02-28 15:25 | XMS_ITS ---
Author Organization [facility] Address [address] [place] [address] Care Team Providers Care Mica Layer Name Role Phone Unavailable Unavailable Unavailable Surgery Details Not on file Complications Check Surgery Details section. Procedure Estimated Blood Loss Check Surgery Details section. Procedure Findings Check Surgery Details section. Procedure Specimens Taken Check Surgery Details section.
--- OUTSIDE RECORDS SUMMARY | 2024-02-28 15:25 | XMS_ITS | Clinical Summary ---
Author Organization [facility] Address [address] [place] [address] Care Team Providers Care Computer Forensic Examiner Name Role Phone Dianelys Solorio M.D. Primary Care Provider [phone] Source Comments Patient records contain information from all sites at [facility]. For routine questions regarding patient records, call [phone] during business hours, M-F 8:00 AM - 5:00 PM Central Time. Record requests for emergency care only can be directed to [phone] at any time.[facility] Allergies No known active allergies Medications [...] Encounters Date Type Department Care Team Description 02/22/2024 Orders Only [facility] Dianelys Solorio M.D. Screening Examination Diabetes Mellitus; Screening Lipid 02/01/2024 8:20 AM CDT Internal E-Consult Division of Gastroenterology in [place], [place] [address] [place] [address] Francesca Baxter M.D. Talwalkar, Jayant A, M.D., M.P.H. Colic Biliary 01/26/2024 1:55 PM CDT Ancillary Procedure Department of Radiology in [place], [place] [address] [place] [address] Sarai Yoon P.A.-C., M.S. Malignant Neoplasm Of Lung Adenocarcinoma Right (HCC); Secondary Malignant Neoplasm Brain (HCC) 01/26/2024 1:04 PM CDT - 01/27/2024 5:37 PM CDT Hospital Encounter Department of Radiation Oncology in [place], [place] [address] [place] [address] Abisai Ortega M.D. Malignant Neoplasm Of Lung Adenocarcinoma Right (HCC) (Primary Dx); Secondary Malignant Neoplasm Brain (HCC); Secondary Malignant Neoplasm Bone (HCC) 01/26/2024 Clinical Communication Department of General Surgery in [place], [place] [address] [phone] Francesca Baxter M.D. Results 01/10/2024 8:30 AM CDT Office Visit Department of Family Medicine, [facility], in [place], [place] [address] [place] [phone] Norma Gandara, PEvetteA.-Dariusz Preoperative Exam (Primary Dx); Pain Epigastric 12/21/2023 8:30 AM CDT Comprehensive Visit Department of General Surgery in [place], [place] [address] [address] Francesca Baxter M.D. Colic Biliary 12/20/2023 Clinical Communication Department of General Surgery in [place], [place] [address] [phone] Francesca Baxter M.D. 12/20/2023 Orders Only Department of General Surgery in [place], [place] [address] [place] [address] Francesca Baxter M.D. Colic Biliary (Primary Dx); Malignant Neoplasm Of Lung Adenocarcinoma Right (HCC) 12/16/2023 1:20 PM CDT - 12/16/2023 11:59 PM CDT Hospital Encounter Department of Radiology in [place], [place] [address] [place] [address] Norma Gandara P.AEvette-C. Colic Biliary Discharge Disposition: Home or Self Care 12/13/2023 8:00 AM CDT Office Visit Department of Family Medicine, [facility], in [place], [place] [address] [place] [address] Norma Gandara P.A.-C. Colic Biliary (Primary Dx) from Last 3 Months Immunizations Name Administration Dates Next Due Influenza, Unspecified 03/30/2013 SARS-COV-2 (COVID-19) - MODERNA(Discontinued) ,01/17/2021 Tdap 03/30/2013 Family History Medical History Relation Name Comments Lung cancer Aunt Coronary artery disease Father Christiano Curry Lung cancer Father Christiano Curry Lung cancer Maternal Grandfather Milton Nieves Cancer Maternal Grandmother Hyacinth Coledolly Coronary artery disease Maternal Grandmother Ada Colee Diabetes Maternal Grandmother Ada Colee Lung cancer Mother's Brother Amol Kendra Psychiatric Mother's Sister Jo Ann Handleyon Lung cancer Paternal Grandfather Lung cancer Paternal Grandmother Jasmin Curry Lung cancer Uncle Relation Name Status Comments Aunt Father Christiano Curry Maternal Grandfather Milton Mosleye Maternal Grandmother Ada Colee Mother's Brother Amol Kendra Mother's Sister Jo Ann Handleyon Paternal Grandfather Paternal Grandmother Jasmin Curry Uncle Social History Tobacco Use Types Packs/Day Years Used Date Smoking Tobacco: Former Cigarettes 1 - 2014 Smokeless Tobacco: Never Alcohol Use Standard Drinks/Week Comments Yes 1 (1 standard drink = 0.6 oz pure alcohol) A glass a couple times a month sometimes [facility] Utilities Answer Date Recorded In the past 12 months has e electric, gas, oil, or water company threatened to shut off services in your home? No 01/23/2024 Humiliation, Afraid, Rape, and Kick questionnair e [...] and Family Once a week 12/08/2018 Attends Shinto Services 1 to 4 times per year [...] Answer Date Recorded PHQ-2 Score 0 06/22/2023 [facility] [place] of Occupat ional Health - Occupational Stress Questionnaire Answer Date Recorded Feeling of Stress Only a little 12/23/2018 Exercise Vital Sign Answer Date Recorde d On average, how many days pe r week do you engage in moderate to strenuous exercise (like a brisk walk)? 4 days 01/23/2024 On average, how many minutes do you engage in exercise at this level? 20 min 01/23/2024 Hunger Vital Sign Answer Date Recorded Within the past 12 months, y ou worried that your food would run out before you got the money to buy more. Never true 01/23/20 24 Within the past 12 months, t he food you bought just didn't last and you didn't have money to get more. Never true 01/23/2024 PRAPARE - Transportation Answer Date Re corded In the past 12 months, has l ack of transportation kept you from medical appointments or from getting medications? No 05/2023 In the past 12 months, has l ack of transportation kept you from meetings, work, or from getting things needed for daily living? No 01/23/2024 Nutrition Answer Date Recorded On average, how many serving s of fruits and vegetables do you eat per day (serving size is equal to 1 cup or approximately the size of a tennis ball)? 3-5 01/23/2024 Dental Answer Date Recorded Dental: Regular Dentist Yes 01/09/20 Employment Answer Date Recorded Employment status Employed and actively working without restrictions 01/23/2024 Housing Stability Answer Date Recorded What is your living situation today? I have a [facility] place to live 01/23/2024 Education Answer Date Recorded What is the [...] Sign Reading Time Taken Comments Blood Pressure 143/74 01/26/2024 1:23 PM CDT Pulse 94 01/26/2024 1:23 PM CDT Temperature 36.4 ??C (97.6 ??F) 01/26/2024 1:23 PM CD T Respiratory Rate 16 01/10/2024 8:11 AM CDT Oxygen Saturation - - Inhaled Oxygen Concentration - - Weight 99.3 kg (218 lb 14.7 oz) 01/26/2024 1:23 PM CDT Height 164.4 cm (5' 4.72) 12/13/2023 7:41 AM CD T Body Mass Index 36.74 12/13/2023 7:41 AM CDT Plan of Treatment Upcoming Encounters Date Type Department Care Team (Late st Contact Info) Description 03/22/2024 8:00 AM CDT Appointment Department of Radiation Oncology in [place], [place] [address] [place] [address] Abisai Ortega M.D. [address] [place] [address] Health Maintenance Due Date Last Done Comments CT Colonography 1971 Cologuard 1970 FIT 1970 HIV Screening 1970 Hepatitis [...] history exists Lipid (Cholesterol) Screening 04/04/2018 04/04/2013 DTaP,Tdap,and Td Vaccines (2 - Td or Tdap) 03/30/2023 03/30/2013 COVID-19 Vaccine ( season) 2024 08/12/2021, 01/17/2021, 08/28/2020, Additional history exists Influenza Vaccine (#1) 2024 02/28/2019, 2012 Colonoscopy 01/20/2031 01/21/2024 Colorectal Cancer Screening 01/20/2031 Depression Screening (Annual PHQ-2) Completed 06/23/2023, 06/22/2023 HPV Vaccines Aged Out No longer eligi ble based on patient's age to complete this topic Medical Devices Implanted Type Area Digital Data Analyst Device Identifier Shelf Expiration Date Model / Serial / Lot Conversions - Default Historical Implant Device Implanted:05/2009 (Quantity not on file) Intrauterine Device Other/Legacy - See Implant Description Description:Device Status Te xt - IUD.Mirena Procedures Procedure Name Priority Date/Time Associated Diagnosis Comments INTERPRETATION OF OUTSIDE MR HEAD RAD - Routine (most inpatients and all outpatients) 01/26/2024 1:55 PM CDT Malignant Neoplasm Of Lung Adenocarcinoma Right (HCC) Secondary Malignant Neoplasm Brain (HCC) OUTSIDE PHOTO Routine 01/21/2024 12:05 AM CDT OUTSIDE PHOTO Routine 01/21/2024 12:00 AM CDT OUTSIDE MR NEURO Routine 01/19/2024 3:40 PM CDT US GALLBLADDER AND OR BILIARY DUCTS RAD - Routine (most inpatients and all outpatients) 12/16/2023 2:14 PM CDT Colic Biliary GLUCOSE, FASTING, S/P Routine 09/07/2014 10:25 AM CDT LIPID PANEL, S Routine 04/04/2013 7:24 AM ADOBE BLOCK MAKER BI BREAST SCREENING BILATERAL Routine 03/30/2013 4:07 PM ADOBE BLOCK MAKER PATHOLOGY UROLOGIC NURSE CYTOLOGY Routine 03/30/2013 12:00 AM ADOBE BLOCK MAKER from Last 3 Months or Most Recently Relevant to Health Maintenance Results * Interpretation of Outside MR Head (01/26/2024 1:55 PM CDT) Anatomical Region Laterality Modality Neuroradiology RST LOS, Neur oradiology ARZ LOS, Neuroradiology FLA LOS, Head, Other N/A Magnetic Resonance Impressions 01/26/2024 2:35 PM CDT Stable to slight increase in size of multiple small, subcentimeter enhancing metastases in the brain, as described. No definite new metastatic lesions since recent comparison studies. Narrative 01/26/2024 2:35 PM CDT EXAM: ??INTERPRETATION OF OUTSIDE MR HEAD COMPARISON: ??MRI brain 10/06/2023, 08/02/2023 and others dating back to 09/07/2014. FINDINGS: ??Interpretation of MRI brain obtained without and with IV contrast 01/19/2024: Multiple enhancing lesions the brain are again identified, as follows: Punctate focus of enhancement in the right superior frontal gyrus, series 13 image 21. This finding has not substantially changed since recent comparison studies. 4 mm focus of enhancement in the anterior right frontal lobe, series 13 image 43, slightly larger than on 10/06/2023. Stable punctate focus of enhancement in the right caudate head, series 13 image 68. Minimally increased size of a 4 mm enhancing lesion in the anterior inferior right frontal lobe, series 13 image 81. No abnormal diffusion restriction. No convincing hemosiderin deposition in the brain. The ventricles are normal in size and configuration. No extra-axial fluid collection or hydrocephalus. Mild nonspecific leukoaraiosis, as before. Procedure Note Ag Bender M.D. - 01/26/2024 EXAM: INTERPRETATION OF OUTSIDE MR HEAD COMPARISON: MRI brain 10/06/2023, 08/02/2023 and others dating back to09/07/2014. FINDINGS: Interpretation of MRI brain obtained without and with IVcontrast 01/19/2024: Multiple enhancing lesions the brain are again identified, as follows: Punctate focus of enhancement in the right superior frontal gyrus, [id number] image 21. This finding has not substantially changed since recentcomparison studies. 4 mm focus of enhancement in the anterior right frontal lobe, series 13image 43, slightly larger than on 10/06/2023. Stable punctate focus of enhancement in the right caudate head, series 13image 68. Minimally increased size of a 4 mm enhancing lesion in the anteriorinferior right frontal lobe, series 13 image 81. No abnormal diffusion restriction. No convincing hemosiderin deposition inthe brain. The ventricles are normal in size and configuration. Noextra-axial fluid collection or hydrocephalus. Mild nonspecificleukoaraiosis, as before. IMPRESSION: Stable to slight increase in size of multiple small, subcentimeterenhancing metastases in the brain, as described. No definite newmetastatic lesions since recent comparison studies. Sarai Yoon P.A.-C., M.S. IMG MRI PROCED URES * GI Tract-Outside Photo (01/21/2024 12:05 AM CDT) Only the most recent of2 resultswithin the time period is included. Narrative IICT - 02/02/2024 10:02 AM CDT This order has been created and auto-finalized to support the import of outside images. If available, original interpretation can be found on the Media Tab in Chart Review, in Document Viewer, as an image in QREADS or as an Addendum. If a re-interpretation or overread is required please follow defined workflow.?? Provider Not In System IMG NON RAD IMAGI NG PROCEDURES Performing Organization Address City/[facility]/ZIP Co de Phone Number IIMS NA * MR head/brain wo/w con-Outside MR Neuro (01/19/2024 3:40 PM CDT) Narrative IICT - 01/20/2024 8:55 AM CDT This order has been created and auto-finalized to support the import of outside images. If available, original interpretation can be found on the Media Tab in Chart Review, in Document Viewer, as an image in QREADS or as an Addendum. If a re-interpretation or overread is required please follow defined workflow.?? Provider Not In System [facility] [place] PROCEDURE S Performing Organization Address [facility] Co de Phone Number IIMS NA * US Gallbladder and or Biliary Ducts [...] if clinical concern persists. Norma Gandara P.A.-C. IMG US PROCEDURES * (ABNORMAL) Glucose, Fasting (09/07/2014 10:25 AM CDT) Pathologist [facility] Last Intake 14 HR [facility] Glucose, P 101(H) 70 - 100 MG/DL [facility] [place] 09/07/2014 10:2 5 AM CDT 09/07/2014 10:25 AM CDT Lonnie Moreland P.A.-C. LAB BLOOD NON ADD-ON [facility] [place] [address] * (ABNORMAL) Lipid Panel (04/04/2013 7:24 AM ADOBE BLOCK MAKER) Calculated LDL 141(H) 0 - 100 MGDL POWERCHART Total Cholesterol/HDL Ratio 5.23(H) 2.20 - 4.40 POWERCHART Cholesterol, Total 204(H) <=200 MGDL POWERCHART HX HDL 39(L) 40 - 60 MGDL POWERCHART Triglycerides 119 <=150 MGDL POWERCHART HXLDL/HDL 4 POWERCHART Blood 04/04/2013 7:24 AM ADOBE BLOCK MAKER Rachel Foreman M.D. LAB BLOOD ADD-ON POWERCHART * BI Breast Screening Bilateral (03/30/2013 4:07 PM ADOBE BLOCK MAKER) Anatomical Region Laterality Modality Breast Bilateral Mammography 03/30/2013 4:07 PM ADOBE BLOCK MAKER Impressions 03/31/2013 10:19 AM ADOBE BLOCK MAKER Recommendations: ??I recommend a follow-up mammogram in [...] digital mammogram images. Narrative 03/31/2013 10:19 AM ADOBE BLOCK MAKER EXAM: MA Mammo Screening w/ CADD INDICATION: [...] R.TEvette(R)(M) IMG B I PROCEDURES * Pathology UROLOGIC NURSE Cytology (03/30/2013 12:00 AM ADOBE BLOCK MAKER) 03/30/2013 Narrative [facility] - 04/04/2013 1:28 PM ADOBE BLOCK MAKER [facility] in [place] [address] [facility] [address] [place], [place] ??[phone] Patient Name: DEBORA RUBY Collected: 03/30/2013 Address: City/State/Zip: [address], [place] ??[id number] Received: Reported: 03/31/2013 04/04/2013 Soc. Sec. #: ?/Age/Sex 1970 (Age: 42) ??F Physician(s): [place] FOREMAN MD Copy To: ? [facility] ??[id number] [facility], ??[place] ??[address] CYTOPATHOLOGY UROLOGIC NURSE REPORT FINAL CYTOLOGIC DIAGNOSIS Pap Smear, Vagina [...] Rachel Foreman M.D. LAB PAP BLAS EL [facility] Organization Address City/State/ZIP Co de Phone Number [facility] from Last 3 Months or Most Recently Relevant to Health Maintenance Additional Health Concerns Infection Onset Date Last Indicated Protective Environment 01/07/2023 3 Care Teams Computer Forensic Examiner Relationship Specialty Start Date End Date Dianelys Solorio M.D. [address] [place] [address] CHAS Jurado [phone] PCP - General Family Medicine 12/14/23
--- OUTSIDE RECORDS SUMMARY | 2024-02-28 15:25 | XMS_ITS | Referral Summary ---
Author Organization [facility] Address [address] [place] [address] Care Team Providers Care Senior Wind Turbine Technician Name Role Phone Dianelys Solorio M.D. Primary Care Provider Source Comments Patient records contain information from all sites at [facility]. For routine questions regarding patient records, call [phone] during business hours, M-F 8:00 AM - 5:00 PM Central Time. Record requests for emergency care only can be directed to [phone] at any time.[facility] Encounters Date Type Department Care Team Description 02/22/2024 Orders Only [facility] PCP [facility] Dianelys Solorio M.D. Screening Examination Diabetes Mellitus; Screening Lipid 02/01/2024 8:20 AM CDT Internal E-Consult Division of Gastroenterology in [place], [place] [address] [place] [address] Francesca Baxter M.D. Talwalkar, Jayant A, M.D., M.P.H. Colic Biliary 01/26/2024 1:04 PM CDT - 01/27/2024 5:37 PM CDT Hospital Encounter Department of Radiation Oncology in [place], [place] [address] [place] [address] Abisai Ortega M.D. Malignant Neoplasm Of Lung Adenocarcinoma Right (HCC) (Primary Dx); Secondary Malignant Neoplasm Brain (HCC); Secondary Malignant Neoplasm Bone (HCC) 01/26/2024 Clinical Communication Department of General Surgery in [place], [place] [address], [place] [address] Francesca Baxter M.D. Results 01/26/2024 1:55 PM CDT Ancillary Procedure Department of Radiology in [place], [place] [address] [place] [address] Sarai Yoon P.A.-C., M.S. Malignant Neoplasm Of Lung Adenocarcinoma Right (HCC); Secondary Malignant Neoplasm Brain (HCC) 01/10/2024 8:30 AM CDT Office Visit Department of [facility], in [place], [place] [address] [place] [address] Norma Gandara P.A.-CEvette Preoperative Exam (Primary Dx); Pain Epigastric 12/21/2023 8:30 AM CDT Comprehensive Visit Department of General Surgery in [place], [place] [address] [place] [phone] Francesca Baxter M.D. Colic Biliary 12/20/2023 Clinical Communication Department of General Surgery in [place], [place] [address] [place] [phone] Francesca Baxter M.D. 12/20/2023 Orders Only Department of General Surgery in [place], [place] [address] [place] [phone] Francesca Baxter M.D. Colic Biliary (Primary Dx); Malignant Neoplasm Of Lung Adenocarcinoma Right (HCC) 12/16/2023 1:20 PM CDT - 12/16/2023 11:59 PM CDT Hospital Encounter Department of Radiology in [place], [place] [address] [place] [address] Norma Gandara P.AEvette-CEvette Colic Biliary Discharge Disposition: Home or Self Care 12/13/2023 8:00 AM CDT Office Visit Department of Family Medicine, [facility], in [place], [place] [address] [place] [address] Norma Gandara P.A.-C. Colic Biliary (Primary Dx) from Last 3 Months Allergies No known [...] glass a couple times a month sometimes [facility] Utilities Answer Date Recorded In the past 12 months has [facility], oil, or water [email or web address] threatened to shut off services in your [...] Date Recorded PHQ-2 Score 0 06/22/2023 [facility] of Occupat ional Health [...] your living situation today? I have a [facility] place to live 01/23/2024 Education Answer Date [...] CDT Appointment Department of Radiation Oncology in [place], [place] [address] [place] [phone] Abisai Ortega M.D. [address] [place] [address] Medical Devices Implanted Type Area Tool Planer Set Up Operator Device Identifier Shelf Expiration Date Model [...] LIPID PANEL, S Routine 04/04/2013 7:24 AM ENGRAVER STEEL PLATE BI BREAST SCREENING BILATERAL Routine 03/30/2013 4:07 PM ENGRAVER STEEL PLATE PATHOLOGY BAR TURNER CYTOLOGY Routine 03/30/2013 12:00 AM ENGRAVER STEEL PLATE from Last 3 Months or Most Recently [...] enhancement in the right superior frontal gyrus, [id number] image 21. This finding has not substantially [...] resultswithin the time period is included. Narrative IISD - 02/02/2024 10:02 AM CDT This order [...] RAD IMAGI NG PROCEDURES Performing Organization Address [facility] Co de Phone Number IIMS NA * MR head/brain wo/w con-Outside MR Neuro (01/19/2024 3:40 PM CDT) Narrative IISD - 01/20/2024 8:55 AM CDT This order has been created and auto-finalized to support the import of outside images. If available, original interpretation can be found on the Media Tab in Chart Review, in Document Viewer, as an image in QREADS or as an Addendum. If a re-interpretation or overread is required please follow defined workflow.?? Provider Not In System [facility] MRI PROCEDURE S Performing Organization Address [facility] Co de Phone Number IIMS NA [...] 10:25 AM CDT) Last Intake 14 HR [facility] Glucose, P 101(H) 70 - 100 MG/DL [facility] [place] 09/07/2014 10:2 5 AM CDT 09/07/2014 10:25 AM CDT Lonnie Moreland P.A.-C. LAB BLOOD NON ADD-ON [facility] [place] [address] * (ABNORMAL) Lipid Panel (04/04/2013 7:24 AM ENGRAVER STEEL PLATE) Calculated LDL 141(H) 0 - 100 MGDL POWERCHART Total Cholesterol/HDL Ratio 5.23(H) 2.20 - 4.40 POWERCHART Cholesterol, Total 204(H) <=200 MGDL POWERCHART HX HDL 39(L) 40 - 60 MGDL POWERCHART Triglycerides 119 <=150 MGDL POWERCHART HXLDL/HDL 4 POWERCHART Blood 04/04/2013 7:24 AM ENGRAVER STEEL PLATE Rachel Foreman M.D. LAB BLOOD ADD-ON POWERCHART * BI Breast Screening Bilateral (03/30/2013 4:07 PM ENGRAVER STEEL PLATE) Anatomical Region Laterality Modality Breast Bilateral Mammography 03/30/2013 4:07 PM ENGRAVER STEEL PLATE Impressions 03/31/2013 10:19 AM ENGRAVER STEEL PLATE Recommendations: ??I recommend a follow-up mammogram in [...] digital mammogram images. Narrative 03/31/2013 10:19 AM ENGRAVER STEEL PLATE EXAM: MA Mammo Screening w/ CADD INDICATION: [...] performed on the digital mammogram images. Radha Bosch(Pal), REvetteTEvette(Pal)(M) IMG B I PROCEDURES * Pathology BAR TURNER Cytology (03/30/2013 12:00 AM ENGRAVER STEEL PLATE) 03/30/2013 Narrative [facility] - 04/04/2013 1:28 PM ENGRAVER STEEL PLATE [facility] [place] [address] [facility] [address] [place], [place] ??[phone] Patient Name: DEBORA RUBY Collected: 03/30/2013 Address: City/State/Zip: [address], [place] ??[id number] Received: Reported: 03/31/2013 04/04/2013 Soc. Sec. #: ?/Age/Sex 1970 (Age: 42) ??F Physician(s): NJ FOREMAN MD Copy To: ? [facility] ??[id number] [facility], ??[place] ??[address] CYTOPATHOLOGY BAR TURNER REPORT FINAL CYTOLOGIC DIAGNOSIS Pap Smear, Vagina [...] Rachel Foreman M.D. LAB PAP BLAS EL [facility] Organization Address City/State/ZIP Co de Phone Number [facility] LAB from Last 3 Months or Most Recently Relevant to Health Maintenance Additional Health Concerns Infection Onset Date Last Indicated Protective Environment 01/07/2023 08/17/202 3 Care Teams Senior Wind Turbine Technician Relationship Specialty Start Date End Date Dianelys Solorio M.D. [address] [place] [address] CHAS Jur[place] [phone] PCP - General Family Medicine 12/14/23
--- OUTSIDE RECORDS SUMMARY | 2024-02-28 15:26 | XMS_ITS | Encounter Summary ---
Author Organization [facility] Address [address] [place] [address] Care Team Providers Care Threat Analyst Name Role Phone Dianelys Solorio M.D. Primary Care Provider [phone] Encounter Details Date Type Department Care Team (Late st Contact Info) Description 12/20/2023 Clinical Communication Department of General Surgery in [place], [place] [address] [place] [address] Francesca Baxter M.D. [address], [place] [address] Social History Tobacco Use Types [...] and Family Once a week 12/08/2018 Attends [employer] 1 to 4 times per year [...] Answer Date Recorded PHQ-2 Score 0 06/22/2023 [facility] - Occupational Stress Questionnaire Answer Date [...] CDT Appointment Department of Radiation Oncology in [place], [place] [address] [place] [phone] Abisai Ortega M.D. [address] [place] [address] documented as of this encounter Visit Diagnoses Not on filedocumented in this encounter Additional Health Concerns Infection Onset Date Last Indicated Resolved Time Protective Environment 01/07/2023 01/07/2023 Assessment Noted Time PHQ-9 Depression Total Score: 13 01/17/ 019 8:17 AM CDT documented as of this encounter Care Teams Threat Analyst Relationship Specialty Start Date End Date Dianelys Solorio M.D. NPGayle: [id number] [address] [place] [address] [place] [address] PCP - General Family Medicine 12/14/23 documented as of this encounter
--- OUTSIDE RECORDS SUMMARY | 2024-02-28 15:26 | XMS_ITS | Encounter Summary ---
Author Organization [facility] Address [address] [place] [address] Care Team Providers Care Supervisor Rod Placing Name Role Phone Dianelys Solorio M.D. Primary Care Provider Encounter Details Date Type Department Care Team (Latest Contact Info) Description 01/26/2024 1:55 PM CDT Ancillary Procedure Department of Radiology in [place], [place] [address] [place] [address] Sarai Yoon P.A.-C., M.S. [address] [place] [phone] Malignant Neoplasm Of Lung Adenocarcinoma Right (HCC); Secondary Malignant Neoplasm Brain (HCC) Social History Tobacco Use Types Packs/Day Years Used Date Smoking Tobacco: Former Cigarettes 1 - 2014 Smokeless Tobacco: Never Alcohol Use Standard Drinks/Week Comments Yes 1 (1 standard drink = 0.6 oz pure alcohol) A glass a couple times a month sometimes [facility] Utilities Answer Date Recorded In the past 12 months has [facility] electric, gas, oil, or water [employer] threatened to shut off services in your [...] Date Recorded PHQ-2 Score 0 06/22/2023 [facility] Occupat ional Health - Occupational [...] your living situation today? I have a [facility] place to live 01/23/2024 Education Answer Date [...] CDT Appointment Department of Radiation Oncology in [place], [place] [address] [place] [address] Abisai Ortega M.D. [address] [place] [address] documented as of this encounter Procedures Procedure Name Priority Date/Time Associated Diagnosis Comments INTERPRETATION OF OUTSIDE MR HEAD RAD - Routine (most inpatients and all outpatients) 01/26/2024 1:55 PM CDT Malignant Neoplasm Of Lung Adenocarcinoma Right (HCC) Secondary Malignant Neoplasm Brain (HCC) documented in this encounter Results * Interpretation of Outside MR Head [...] enhancement in the right superior frontal gyrus, [id number] image 21. This finding has not substantially [...] lesions since recent comparison studies. Sarai Yoon P.A.-C. M.S. IMG MRI PROCED URES documented in this encounter Visit Diagnoses Diagnosis Malignant Neoplasm Of Lung Adenocarcinoma Right (HCC) Secondary Malignant Neoplasm Brain (HCC) documented in this encounter Additional Health Concerns Infection Onset Date Last Indicated Resolved Time Protective Environment 01/07/2023 01/07/2023 Assessment Noted Time PHQ-9 Depression Total Score: 13 019 8:17 AM CDT documented as of this encounter Care Teams Supervisor Rod Placing Relationship Specialty Start Date End Date Dianelys Solorio M.D. [address] [place] [phone] PCP - General Family Medicine 12/14/23 documented as of this encounter
--- OUTSIDE RECORDS SUMMARY | 2024-02-28 15:26 | XMS_ITS | Encounter Summary ---
Author Organization [facility] Address [address] [place] [address] Care Team Providers Care Food Service Driver Name Role Phone Dianelys Solorio M.D. Primary Care Provider [phone] Reason for Visit * Reason Onset Date Comments Results 01/26/2024 Encounter Details Date Type Department Care Team (Late st Contact Info) Description 01/26/2024 Clinical Communication Department of General Surgery in [place], [place] [address] [address] Francesca Baxter M.D. [address] [address] Results Social History Tobacco Use Types Packs/Day Years Used Date Smoking Tobacco: Former Cigarettes - 2014 Smokeless Tobacco: Never Alcohol Use Standard Drinks/Week Comments Yes 1 (1 standard drink = 0.6 oz pure alcohol) A glass a couple times a month sometimes [facility] Utilities Answer Date Recorded In the past 12 months has [facility] electric, gas, oil, or water company threatened [...] and Family Once a week 12/08/2018 Attends [employer] 1 to 4 times per year [...] Answer Date Recorded PHQ-2 Score 0 06/22/2023 [facility] of Occupat ional Health - [...] your living situation today? I have a [facility] place to live 01/23/2024 Education Answer [...] encounter Miscellaneous Notes * Telephone Encounter - Francesca Baxter M.D. - 01/26/2024 3:35 PM CDT I spoke with Debora about the results from her EGD and colonoscopy. All of the biopsies were negative. The external compression is secondary to the hepatic hemangioma upon review of her most recent CT. We discussed that her GENEVIEVE pain could be due to gallstones although it is not definitive. She will make some dietary changes to avoid grease, oil, and fats and will see how she feel over the next month or so. Her next colonoscopy will be due in 7 years. documented in this encounter Plan of Treatment Upcoming Encounters Date Type Department Care Team (Late st Contact Info) Description 03/22/2024 8:00 AM CDT Appointment Department of Radiation Oncology in [place], [place] [address] [place] [phone] Abisai Ortega M.D. [address] [place] [address] documented as of this encounter Visit Diagnoses Not on filedocumented in this encounter Additional Health Concerns Infection Onset Date Last Indicated Resolved Time Protective Environment 01/07/2023 01/07/2023 Assessment Noted Time PHQ-9 Depression Total Score: 13 01/17/ 019 8:17 AM CDT documented as of this encounter Care Teams Food Service Driver Relationship Specialty Start Date End Date Dianelys Solorio M.D. [address] [place] [address] [place] [phone] PCP - General Family Medicine 12/14/23 documented as of this encounter
--- OUTSIDE RECORDS SUMMARY | 2024-02-28 15:26 | XMS_ITS | Clinical Summary ---
Author Organization [email or web address] Address [place], [place] [address] Care Team Providers Care Deputy Bailiff Name Role Phone Norma Gandara PA-C Primary Care Provider [phone] Allergies No known active allergies Medications Medication Sig Dispensed Refills Start Date End Date Status alectinib (Alecensa) 150 mg cap Take 600 mg by mouth two times daily. Active levonorgestrel (Mirena) 20 mcg/24 hours (8 yrs) 52 mg intrauterine device (IUD) Inject 1 Device intrauterine one time. Active Active Problems Problem Noted Date Diagnosed Date Non-small cell lung cancer Encounters Date Type Department Care Team Description 01/21/2024 8:15 AM CDT - 01/21/2024 9:23 AM CDT Surgery [address] [address] Francesca Baxter MD COLONOSCOPY WITH BIOPSY 01/21/2024 8:10 AM CDT Anesthesia Event [address] [address] David Chandler, 01/21/2024 7:11 AM CDT - 01/21/2024 9:35 AM CDT Hospital Encounter [address] [address] Francesca Baxter MD Discharge Disposition: Home Self Care 01/21/2024 Travel from Last 3 Months Social History Tobacco Use Types Packs/Day Years Used Date Smoking Tobacco: Never Smokeless Tobacco: Never Tobacco Cessation:Counseling Given: Not Answered Sex and Gender Information Value Date Recorded Sex Assigned at Not on file Gender Identity Not on file Sexual Orientation Not on file Obstetrics History Last Filed Vital Signs Vital Sign Reading Time Taken Comments Blood Pressure 91/64 01/21/2024 9:30 AM CDT Pulse 79 01/21/2024 9:30 AM CDT Temperature 36.6 ??C (97.8 ??F) 01/21/2024 9:04 AM CD T Respiratory Rate 18 01/21/2024 9:30 AM CDT Oxygen Saturation 98% 01/21/2024 9:30 AM CDT Inhaled Oxygen Concentration - - Weight 98.5 kg (217 lb 1.6 oz) 01/21/2024 7:33 A M CDT Height 164.4 cm (5' 4.72) 01/11/2024 7:00 AM CD T Body Mass Index 36.44 01/11/2024 7:00 AM CDT Plan of Treatment Health Maintenance Due Date Last Done Comments Tdap 09/29/1982 Depression screening for age 12+ 1983 HIV for age 15-65 09/29/1986 BMI (ht and wt on same day) for age 18+ 09/29/1989 Hepatitis C screening for age 18-79 09/29/1989 Tetanus booster 1991 Pap test for age 21-65 09/29/1992 Lipids for age 45-75 09/29/2016 Mammogram for age 45-75 09/29/2016 Zoster (shingles) series for age 50+ (1 of 2) 09/29/2021 COVID-19 vaccine series ( season) 2024 08/12/2021, 01/17/2021, 08/28/2020, Additional history exists Influenza for age 50-64 01/23/2024 Colonoscopy through age 75 01/20/2034 01/21/2024 Pneumococcal series for age 6-64 Aged Out No longer eligible based on patient's age to complete this topic Procedures Procedure Name Priority Date/Time Associated Diagnosis Comments PATH TISSUE EXAM Today 01/21/2024 8:17 AM CDT COLONOSCOPY 01/21/2024 8:10 AM CDT ESOPHAGOGASTRODUODENOSCOPY W ITH BIOPSY 01/21/2024 8:10 AM CDT SAME Case Notes Miralax/Dulcolax Special Needs [id number] COLONOSCOPY WITH BIOPSY 01/21/20 8:10 AM CDT SAME Case Notes Miralax/Dulcolax Special Needs [id number] ENDOSCOPY 01/21/2024 8:08 AM CDT from Last 3 Months Results * PATH TISSUE EXAM (01/21/2024 8:17 AM CDT) Case Report Pathology Report ?Case: [id number] ? Authorizing Provider: ??Francesca Baxter ?Collected: ? 01/21/2024 0817 ? MD Amie ? Ordering Location: ? [facility] ?Received: ?01/21/2024 1213 ? Pathologist: ? Hector Cox ? IV, MD ? Specimens: ?? A) - Duodenum Biopsy ? B) - Gastric Biopsy, gasrtic antrum for H. plyori ? C) - Gastric Biopsy, gasrtic fundus ? D) - Ileum Biopsy ? 01/25/2024 2:36 PM CDT [facility] Final Diagnosis A) DUODENUM, BIOPSY: 1. Normal duodenal mucosa 2. Negative for celiac disease and other enteropathy B) STOMACH, ANTRUM, BIOPSY: 1. Non-erosive reactive gastropathy (see comment) ?? a. Sampling: Antral mucosa ?? b. Distribution: Antral mucosa 2. Negative for inflammation, atrophy and Helicobacter C) STOMACH, BIOPSY: 1. Normal gastric antral and body mucosae 2. Negative for Helicobacter D) TERMINAL ILEUM, BIOPSY 1. Normal ileal mucosa 2. Negative for active and chronic ileitis 01/25/2024 2:36 PM CDT [facility] Comment B) The likely etiology is an ongoing non-inflammatory type mucosal injury due to a chemical type of injury; this may be due to ingestion of non-steroidal anti-inflammator y drugs, aspirin (via prostaglandin-me diated injury), excess alcohol, corticosteroids, or bile/alkaline reflux, the latter usually in the setting of a gastroenteric anastomosis. 01/25/2024 2:36 PM T [facility] Clinical Information Ms. Valdes is a 53 y.o. who presents with epigastric abdominal pain. EGD findings include: ? - Extrinsic compression in the gastric fundus. Biopsied. ? - The examination was otherwise normal. ? - Z-line regular, 37 cm from the incisors. ? - Normal esophagus. ? - Biopsies were taken with a cold forceps for histology. ? - Biopsies were taken with a cold forceps for Helicobacter pylori ? testing. Colonoscopy findings include: ? - The examination was otherwise normal on direct and retroflexion views. ? - Granularity in the distal ileum. Biopsied. 01/25/2024 2:36 PM T [facility] Gross Description A) Received in formalin are 5 braden mucosal fragments ranging from 1 mm to 2 mm in greatest dimension, which are entirely submitted in one cassette. It is labeled with the patient's name and designated duodenal biopsy. B) Received in formalin are 3 braden mucosal fragments averaging 2 mm in greatest dimension, which are entirely submitted in one cassette. It is labeled with the patient's name and designated gastric antrum for H. pylori. C) Received in formalin are 5 braden mucosal fragments averaging 2 mm in greatest dimension, which are entirely submitted in one cassette. It is labeled with the patient's name and designated gastric fundus. D) Received in formalin are 4 braden mucosal fragments ranging from 1 mm to 3 mm in greatest dimension, which are entirely submitted in one cassette. It is labeled with the patient's name and designated ileal biopsy. Jad Champagne 01/22/2024 9:47 AM 01/25/2024 2:36 PM T [facility] Microscopic Description The final diagnosis is based on microscopic examination of appropriate sections of all specimens. 01/25/2024 2:36 PM CDT [facility] Additional Information Interpreted at [facility] - [address] [facility] [address], [place] [address] 01/25/2024 2:36 PM CDT [facility] Biopsy (Duodenum Biopsy) 01/21/2024 8:17 AM CDT 01/21/2024 12:13 PM CDT Biopsy specimen (specimen) GASTRIC BIOPSY SPECIMEN / Unknown 01/21/2024 8:20 AM CDT 01/21/2024 12:13 PM CDT Biopsy specimen (specimen) GASTRIC BIOPSY SPECIMEN / Unknown 01/21/2024 8:23 AM CDT 01/21/2024 12:13 PM CDT Biopsy specimen (specimen) (Ileum Biopsy) 01/21/2024 8:48 AM CDT 01/21/2024 12:13 PM CDT Francesca Stern MD PATHOLOGY/C YTOLOGY [facility] [address] [place] [address], * COLONOSCOPY (01/21/2024 8:10 AM CDT) 01/21/2024 8:10 AM CDT Narrative Transcriptions Francesca Baxter MD - 01/21/2024 9:09 AM CDT Patient Name: Debora Valdes Procedure Date: 01/21/2024 Gender: Female Date of : 1970 Admit Type: Ambulatory Procedure: Colonoscopy Proceduralist: Francesca Tejeda MD Referring MD: Francesca Tejeda MD Indications/Pre-Op Diagnosis: Screening for colorectal malignantneoplasm Medications: Monitored Anesthesia Care Procedure Description: The procedure, indications, potential complications, (bleeding, perforation, infection, adverse medication reaction, missed lesionsor polyps) and alternatives available were explained to the patient, who appeared to understand and indicated this. Opportunity for questionswas provided and informed consent obtained. The endoscope [id number] was passed through the anus and advanced to the terminal ileum. The colonoscopy was performed without difficulty. The patient tolerated the procedure well. The quality of the bowel preparation was evaluated using the BBPS (Woden Bowel Preparation Scale) with scores of: Right Colon = 3, Transverse Colon = 3 and Left Colon = 3 (entire mucosa seen well with no residual staining, small fragments of stool or opaque liquid). The total BBPS score equals9. Complications: No immediate complications. Estimated Blood Loss & Specimen: Estimated blood loss was minimal. Specimen collected: Yes and sent to Laboratory Findings: The perianal and digital rectal examinations were normal. The exam was otherwise without abnormality on direct and retroflexion views. A localized area of mucosa in the distal ileum was granular. Biopsies were taken with a cold forceps for histology. Impressions/Post-Op Diagnosis: - The examination was otherwise normal on direct and retroflexionviews. - Granularity in the distal ileum. Biopsied. Recommendation: - Await pathology results. - Dr. Tejeda's office will call you with results and follow up instructions Moderate Sedation: see anesthesia report Francesca Tejeda MD 01/21/2024 9:09:23 AM This report has been signed electronically. Note Initiated On: 01/21/2024 8:10 AM Francesca Stern MD PROCEDURE O RD * ENDOSCOPY (01/21/2024 8:08 AM CDT) 01/21/2024 8:08 AM CDT Narrative Transcriptions Francesca Baxter MD - 01/21/2024 9:05 AM CDT Patient Name: Debora Valdes Procedure Date: 01/21/2024 Gender: Female Date of : 1970 Admit Type: Ambulatory Procedure: Upper GI endoscopy Proceduralist: Francesca Tejeda MD Referring MD: Francesca Tejeda MD Indications/Pre-Op Diagnosis: Epigastric abdominal pain Medications: Monitored Anesthesia Care Procedure Description: The procedure, indications, potential complications, (bleeding, perforation, infection, adverse medication reaction, missed lesionsor polyps) and alternatives available were explained to the patient, who appeared to understand and indicated this. Opportunity for questionswas provided and informed consent obtained. The endoscope [id number] was introduced through the mouth, and advanced to the second part of duodenum. The upper GI endoscopy was accomplished without difficulty. The patient tolerated the procedure well. Complications: No immediate complications. Estimated Blood Loss & Specimen: Estimated blood loss was minimal. Specimen collected: Yes and sent to Laboratory Findings: There is no endoscopic evidence of bleeding or ulceration in theentire examined duodenum. Biopsies were taken with a cold forceps forhistology. Extrinsic compression on the stomach was found in the gastric fundus. Biopsies were taken with a cold forceps for histology. There is no endoscopic evidence of bleeding, erythema or ulcerationin the entire examined stomach. Biopsies were taken with a cold forcepsfor Helicobacter pylori testing. The exam was otherwise without abnormality. The Z-line was regular and was found 37 cm from the incisors. The examined esophagus was normal. Impressions/Post-Op Diagnosis: - Extrinsic compression in the gastric fundus. Biopsied. - The examination was otherwise normal. - Z-line regular, 37 cm from the incisors. - Normal esophagus. - Biopsies were taken with a cold forceps for histology. - Biopsies were taken with a cold forceps for Helicobacter pylori testing. Recommendation: - Await pathology results. - Dr. Tejeda's office will call you with results and follow up instructions Moderate Sedation: see anesthesia report Francesca Tejeda MD 01/21/2024 9:05:21 AM This report has been signed electronically. Note Initiated On: 01/21/2024 8:08 AM Francesca Stern MD PROCEDURE O RD from Last 3 Months Advance Directives * Full Code (Latest Code Status on File) Date Activated Date Inactivated Comments 01/21/2024 7:12 AM 01/21/2024 11:36 AM Question Answer Comments Code Status Discussion: Not Discussed Care Teams Deputy Bailiff Relationship Specialty Start Date End Date Norma Gandara PA-C [address] [place] [address] Ave [place] [address] PCP - General Physician Stock Counter 01/10/24
--- OUTSIDE RECORDS SUMMARY | 2024-02-28 15:26 | XMS_ITS | Encounter Summary ---
Author Organization [facility] Address [address] [place] [address] Care Team Providers Care Concrete Pile Driver Operator Name Role Phone Jessica Schulz APRN C.N.P., D.N.P. Primary C are Provider Reason for Referral * Outpatient (Routine) - Closed Specialty Diagnoses / Procedures Referred By Lito newberry Referred To Contact General Surgery Diagnoses Colic Biliary Norma Gandara P.A.-C. [address] [place] [address] [facility] Referral ID Status Reason Start Date Expiration Date V isits Requested Visits Authorized [id number] Closed Specialty Services Required 12/13/2023 06/13/2025 1 1 * Outpatient (Routine) - Closed Specialty Diagnoses / Procedures Referred By Lito newberry Referred To Contact Diagnoses Colic Biliary Procedures US Gallbladder and or Biliary Ducts Norma Gandara P.A.-C. [address] [place] [address] [facility] Region Referral ID Status Reason Start Date Expiration Date Visits Re quested Visits Authorized [id number] Closed 12/13/2023 12/12/2024 1 1 Reason for [...] Expiration Date Visits Re quested Visits Authorized [id number] Closed 11/29/2023 11/28/2024 1 1 Encounter Details Date Type Department Care Team (Late st Contact Info) Description 12/13/2023 8:00 AM CDT Office Visit Department of Family Medicine, [facility], in [place], [place] [address] [place] [address] Norma Gandara P.A.-C. [address] [place] [address] Colic Biliary (Primary Dx) Social [...] be sent through Care Everywhere. * Gallstones (Chinese) documented in this encounter Progress Notes * [...] November when she was driving back from [facility] the middle of the morning, she had [...] CDT Appointment Department of Radiation Oncology in [place], [place] [address] [place] [phone] Abisai Ortega M.D. [address] [place] [address] Scheduled Referrals Name Type Priority Associated Diagnoses [...] documented as of this encounter Care Teams Concrete Pile Driver Operator Relationship Specialty Start Date End Date Jessica Schulz APRN, C.N.P., D.N.P. [address], [place] [phone] PCP - General 12/12/20 12/13/23 documented as of this encounter
--- OUTSIDE RECORDS SUMMARY | 2024-02-28 15:26 | XMS_ITS | Encounter Summary ---
Author Organization [facility] Address [address] [place] [address] Care Team Providers Care Gypsum Calciner Name Role Phone Jessica Schulz APRN, C.N.P., D.N.P. Primary C are Provider Encounter Details Date Type Department Care Team (Late st Contact Info) Description 11/16/2023 Orders Only [facility] [address] [place] [id number] Jessica Schulz APRN, C.N.P., D.N.P. [address] [place] [address] Screening Cancer Colon Social History [...] Answer Date Recorded PHQ-2 Score 0 06/22/2023 [facility] of Occupat ional Health - Occupational Stress [...] CDT Appointment Department of Radiation Oncology in [place], [place] [address] [place] [address] Abisai Ortega M.D. [address] [place] [address] documented as of this encounter Visit Diagnoses Diagnosis Screening Cancer Colon documented in this encounter Additional Health Concerns Infection Onset Date Last Indicated Resolved Time Protective Environment 01/07/2023 01/07/2023 Assessment Noted Time PHQ-9 Depression Total Score: 13 019 8:17 AM CDT documented as of this encounter Care Teams Gypsum Calciner Relationship Specialty Start Date End Date Jessica Schulz APRN, C.N.P., D.N.P. [address] [place] [address] PCP - General 12/12/20 12/13/23 documented as of this encounter
--- OUTSIDE RECORDS SUMMARY | 2024-02-28 15:26 | XMS_ITS | Encounter Summary ---
Author Organization [facility] Address [address] [place] [address] Care Team Providers Care Bander Operator Name Role Phone Dianelys Solorio M.D. Primary Care Provider [phone] Reason for Referral * Outpatient (Routine) - Authorized Specialty Diagnoses / Procedures Referred By Lito newberry Referred To Contact Radiation Oncology Sarai Yoon P.A.-C., M.S. [address] [place] [phone] Abisai Ortega M.D. [address] [place] [phone] Referral ID Status Reason Start Date Expiration Date V isits Requested Visits Authorized [id number] Authorized 01/26/2024 07/27/2025 1 1 Scheduling Instructions Schedule after next brain MRI imaging (February vs. March 2024). Please get images and report when available and notify the care team when available so that it can be reviewed for possible ordering of [facility] read PRIOR to her appointment. * MRI/CAT/PET Scan (Routine) - Pending Review Specialty Diagnoses / Procedures Referred By Lito newberry Referred To Contact Radiology Diagnoses Malignant Neoplasm Of Lung Adenocarcinoma Right (HCC) Secondary Malignant Neoplasm Brain (HCC) Procedures MR Brain without and with IV Contrast Sarai Yoon P.A.-C., M.S. [address] [place] [phone] [facility] Region Referral ID Status Reason Start Date Expiration Date V isits Requested Visits Authorized [id number] Pending Review 01/26/2024 01/25/2025 1 1 * Outpatient (Routine) - Closed Specialty Diagnoses / Procedures Referred By Contac t Referred To Contact Radiation Oncology Sarai Yoon P.A.-C., M.SEvette [address] [place] [phone] Abisai Ortega M.D. [address] [place] [phone] Referral ID Status Reason Start Date Expiration Date Visits Re quested Visits Authorized [id number] Closed 10/19/2023 04/19/2025 1 1 Scheduling Instructions MRI brain prior at [facility]; please get report and images prior to visit Reason for Visit * Outpatient (Routine) - Closed Specialty Diagnoses / Procedures Referred By Contac t Referred To Contact Radiation Oncology Sarai Yoon P.A.-C., M.SEvette [address] [place] [phone] Abisai Ortega M.D. [address] [place] [phone] Referral ID Status Reason Start Date Expiration Date Visits Re quested Visits Authorized [id number] Closed 10/19/2023 04/19/2025 1 1 Encounter Details Date Type Department Care Team (Latest Contact Info) Description 01/26/2024 1:04 PM CDT - 01/27/2024 5:37 PM CDT Hospital Encounter Department of Radiation Oncology in [place], [place] [address] [place] [address] Abisai Ortega M.D. [address] [place] [address] Malignant Neoplasm Of Lung Adenocarcinoma Right (HCC) (Primary Dx); Secondary Malignant Neoplasm Brain (HCC); Secondary Malignant Neoplasm Bone (HCC) Social History Tobacco Use Types Packs/Day Years Used Date Smoking Tobacco: Former Cigarettes 1 2014 Smokeless Tobacco: Never Alcohol Use Standard Drinks/Week Comments Yes 1 (1 standard drink = 0.6 oz pure alcohol) A glass a couple times a month sometimes [facility] Utilities Answer Date Recorded In the past 12 months has [facility], gas, oil, or water [employer] threatened to shut off services in your [...] and Family Once a week 12/08/2018 Attends Jainism Services 1 to 4 times per year [...] Answer Date Recorded PHQ-2 Score 0 06/22/2023 [facility] of Occupat ional [facility] - Occupational Stress Questionnaire Answer [...] have a [facility] place to live 01/23/2024 Education Answer Date [...] 01/26/2024 1:23 PM CD T Respiratory Rate - - Oxygen Saturation - - Inhaled Oxygen Concentration - - Weight 99.3 kg (218 lb 14.7 oz) 01/26/2024 1:23 PM CDT Height - - Body Mass Index 36.74 12/13/2023 7:41 AM CDT documented in this encounter Medications at Time of Discharge Medication Sig Dispensed Refills Start Date End Date acetaminophen 325 mg capsule as needed. 08/05/2015 ALECENSA 150 mg capsule 03/03/2019 levonorgestrel (MIRENA) 20 mcg/24 hours (5 yrs) 52 mg IUD by intrauterine route. 01/26/2007 documented as of this encounter Progress Notes * Sarai Yoon P.A.-C., M.S. - 01/26/2024 1:30 PM CDT SUBJECTIVE DIAGNOSIS 1. Malignant Neoplasm Of Lung Adenocarcinoma Right (HCC) 2. Secondary Malignant Neoplasm Brain (HCC) 3. Secondary Malignant Neoplasm Bone (HCC) SUPERVISED BY: Abisai Ortega M.D. ([phone]) HISTORY OF PRESENT ILLNESS Mrs. Debora Valdes [...] pazopanib therapy. She was seen by at [facility], and changed ALK communication to ALK positive [...] received her first cycle of cisplatin plus POLISHER NUMERAL-16 from December 10 to December 17, her [...] completed on July 23, 2015 at [facility]. She was seen in Medical Oncology by Dr. Gonzáles in [facility] on November 21, 2015 who discussed [...] Dr. Yaritza Taylor in Medical Oncology at [facility] who ordered Alectinib and proceeding with radiation therapy to L4 and repeat brain MRI 6 weeks after she starts systemic therapy. If there is evidence of CONCESSIONIST progression consider gamma knife therapy. Observation of [...] is recommended. 01/23/2020 Critical Imaging MR Brain Impression: 1. No change compared to prior MRI [...] 11/28/[address] Chest Abdomen Pelvis Impression: 1. No sign of recurrent or metastatic lung cancer. 2. Stable lobulated masses in the left lobe and caudate lobe of the liver possibly representing hemangiomas or old treated metastatic lesions. 3. No other significant findings. MR Head/Brain demonstrated 2 very tiny lesions, 2 mm in 3 mm in the right frontal lobe. 01/10/2021 Critical Imaging MR Brain Impression: 1. Punctate enhancing lesion within the anteromedial [...] 27Gy in 3 fractions. 04/20/2023 Critical Imaging [facility] interpretation of outside brain MR IMPRESSION: Slight [...] stable. 4. No new metastatic focus identified. 01/19/2024 Critical Imaging MR Brain Impression: New enhancing lesion in the right superior frontal gyrus concerning for metastasis. Enlargement of metastasis in the right middle frontal gyrus, right inferolateral frontal lobe, and right head of the caudate nucleus. No significant edema. No mass effect. 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 [facility] Interpretation IMPRESSION: Stable to slight increase in size of multiple small, subcentimeter enhancing metastases in the brain, as described. No definite new metastatic lesions since recent comparison studies. INTERVAL HISTORY: The patient was seen and examined today with Dr. Ortega. The patient reports doing well overall. She denies any new or concerning symptoms. She denies headaches, vision or hearing changes, nausea/vomiting, focal numbness, tingling, or weakness, or bowel orbladder incontinence. She denies any memory or cognitive changes. She reports good appetite overall. She is continuing systemic therapy under the care of Dr. Townsend and reports tolerating this well overall. REVIEW OF SYSTEMS Review of systems was [...] good as can be): 9 OBJECTIVE BP 143/74 (BP Location: Right arm, Patient Position: Sitting, Cuff Size: Large) Pulse 94 Temp 36.4 ??C (Temporal) Wt 99.3 kg BMI 36.74 kg/m?? PHYSICAL EXAMINATION General: Patient is alert and oriented and in no apparent distress. Heart: Regular rate and rhythm. Lungs: Clear to auscultation bilaterally. Neuro: CN II-XII grossly intact. Sensation to light touch intact. Strength is 5/5 in the upper and lower extremities. Dtocuo-yb-msfz, lhea-aj-oocp, and rapid alternating movements are normal. Recall 3/3 words. 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 We reviewed her recent MRI brain report and result today. We discussed that the reading Radiologist compared her images to a previous MRI from August 2022 and she has had treatment in the interval. Dr. Ortega also reviewed the patient's MRI images in comparison to her more recent images and he felt that things looked okay overall with stable or slight increase in size of the previously treated brain metastases. We offered to order for a [facility] interpretation of the imaging today and the patient was in agreement. Depending on the [facility] interpretation, we discussed repeating a brain MRI again in 2-3 months. The patient would like the imaging performed at [facility]. The patient is also scheduled for a follow-up visit with Dr. Townsend later today. Dr. Townsend is ordering and monitoring the patient's CT chest, abdomen, and pelvis imaging which she will have againlater this month. We will order for a return visit to be scheduled here following her next brain MRI imaging. The patient will contact us with questions or concerns. She verbally expressed her understanding of the plan. EDUCATION: Ready to learn, no apparent learning barriers were identified; learning preferences include listening. Explained diagnosis and treatment plan; patient expressed understanding of the content. I personally spent 25 minutes in care of the patient today. Time includes both non face to face andface to face patient care. Signed by: Sarai Yoon P.A.-C., M.S. 01/26/2024 4:30 PM CDT [facility] [address] [place] [address] ADDENDUM: The [facility] Interpretation of her brain MRI imaging was completed later in the day. Their impression demonstrated stable to slight increase in size of multiple small, subcentimeter enhancing metastases in the brain, as described. No definite new metastatic lesions since recent comparison studies. I called the patient to provide her with the updated report and left her a voicemail. Dr. Ortega recommends connecting with Dr. Townsend regarding the timing of the next brain MRI imagingfor the patient. I subsequently communicated with Dr. Townsend who prefers to repeat a brain MRI again in 2 months. I also talked to the patient and shared this information with her and she was in agreement with the plan. Associated attestation - Abisai Ortega M.D. - 01/27/2024 5:36 PM CDT I saw and evaluated the [...] and interpreted the patient's brain MRI from January 19, 2024 and compared it to her prior scans from October 06, 2023, August 02, 2023, April 19, 2023, and her planning MRI scan from January 22, 2023. The latest scan shows more prominent enhancement in 2 of the 3 treated lesions. He is also more prominent enhancement in the area of the right caudate nucleus that has been thought to be a vessel in the past. No new areas were seen. Given the more prominent enhancement seen in a few of the lesions and after communication with Dr. Townsend, we agreed to repeat an MRI in 2 months and see the patient back go over the results. I have spent 15 minutes caring for this patient including aeja-nm-cajr and vtf-trrk-hk-face time. Signed by: Abisai Ortega M.D. 01/27/24 5:36 PM CDT [facility] [place] documented in this encounter Miscellaneous Notes * Addendum Note - Suzanne Bach - 01/26/2024 1:30 PM CDTEncounter addended by: Suzanne Bach on: 01/28/2024 9:46 AM Actions taken: Letter saved documented in this encounter Plan of Treatment Upcoming Encounters Date Type Department Care Team (Late st Contact Info) Description 03/22/2024 8:00 AM CDT Appointment Department of Radiation Oncology in [place], [place] [address] [place] [address] Abisai Ortega M.D. [address] [place] [address] Scheduled Orders Name Type Priority Associated Diagnoses Orde r Schedule MR Brain without and with IV Contrast Imaging RAD - Routine (most inpatients and all outpatients) Malignant Neoplasm Of Lung Adenocarcinoma Right (HCC) Secondary Malignant Neoplasm Brain (HCC) Expected: 03/20/2024, Expires: 04/26/2025 Scheduled Referrals Name Type Priority Associated Diagnoses Order Schedule Radiation Oncology office visit (clinic) Outpatient Referral Routine Once for 1 Occurrences starting 01/26/2024 until 01/26/2024 Radiation Oncology office visit (clinic) Outpatient Referral Routine Expected: 03/27/2024, Expires: 04/26/2025 documented as of this encounter Results * Interpretation of Outside [...] enhancement in the right superior frontal gyrus, image 21. This finding has not substantially [...] Yoon P.A.-C., M.S. 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 [address] [place] [phone] PCP - General Family Medicine 12/14/23 documented as of this encounter
--- OUTSIDE RECORDS SUMMARY | 2024-02-28 15:26 | XMS_ITS | Encounter Summary ---
Author Organization [facility] Address [address] [place] [address] Care Team Providers Care Track Machine Operator Repairer Name Role Phone Dianelys Solorio M.D. Primary Care Provider [phone] Encounter Details Date Type Department Care Team (Late st Contact Info) Description 02/22/2024 Orders Only [facility] Dianelys Solorio M.D. [address] [place] [address] [place] [phone] Screening Examination Diabetes Mellitus; Screening Lipid Social History Tobacco Use Types Packs/Day Years Used Date Smoking Tobacco: Former Cigarettes 1 2014 Smokeless Tobacco: Never Alcohol Use Standard Drinks/Week Comments Yes 1 (1 standard drink = 0.6 oz pure alcohol) A glass a couple times a month sometimes [facility] Utilities Answer Date Recorded In the past 12 months has [employer] gas, oil, or water [employer] threatened to shut off services in your [...] and Family Once a week 12/08/2018 Attends Zoroastrianism Services 1 to 4 times per year [...] Date Recorded PHQ-2 Score 0 06/22/2023 [facility] of Occupat ional Health - Occupational Stress [...] your living situation today? I have a [facility] place to live 01/23/2024 Education [...] CDT Appointment Department of Radiation Oncology in [place], [place] [address] [place] [address] Abisai Ortega M.D. [address] [place] [address] Scheduled Orders Name Type Priority Associated Diagnoses Orde r Schedule Glucose, Fasting Lab Routine Screening Examination Diabetes Mellitus Expected: 03/07/2024, Expires: 08/20/2024 Lipid Panel Lab Routine Screening Lipid Expected: 03/07/2024, Expires: 08/20/2024 documented as of this encounter Visit Diagnoses Diagnosis Screening Examination Diabetes Mellitus Screening Lipid documented in this encounter Additional Health Concerns Infection Onset Date Last Indicated Resolved Time Protective Environment 01/07/2023 01/07/2023 Assessment Noted Time PHQ-9 Depression Total Score: 13 01/17/2 019 8:17 AM CDT documented as of this encounter Care Teams Track Machine Operator Repairer Relationship Specialty Start Date End Date Dianelys Solorio M.D. [address] [place] [phone] PCP - General Family Medicine 12/14/23 documented as of this encounter
--- OUTSIDE RECORDS SUMMARY | 2024-02-28 15:26 | XMS_ITS | Encounter Summary ---
Author Organization [facility] Address [address] [place] [address] Care Team Providers Care Physical Instructor Name Role Phone Dianelys Solorio M.D. Primary Care Provider Reason for Visit * Outpatient (Routine) - Closed Specialty Diagnoses / Procedures Referred By Contact Referred To Contact Gastroenterology and Hepatology Diagnoses Colic Biliary Procedures Gastroenterology and Hepatology - Hepatobiliary eConsult Francesca Baxter M.D. [address] [place] [address] [facility] Referral ID Status Reason Start Date Expiration Date Visits Re quested Visits Authorized [id number] Closed 12/21/2023 12/20/2024 1 1 Encounter Details Date Type Department Care Team (Latest Contact Info) Description 02/01/2024 8:20 AM CDT Internal E-Consult Division of Gastroenterology in [place], [place] [address] [place] [address] Francesca Baxter M.D. [address] [place] [address] Stephan Ryan M.D., M.P.H. [address] [place] [phone] Colic Biliary Social History Tobacco Use Types Packs/Day Years Used Date Smoking Tobacco: Former Cigarettes 1 23 1 2014 Smokeless Tobacco: Never Alcohol Use Standard Drinks/Week Comments Yes 1 (1 standard drink = 0.6 oz pure alcohol) A glass a couple times a month sometimes [facility] Utilities Answer Date Recorded In the past 12 months has th e [email or web address], gas, oil, or water [employer] threatened to shut off services in your [...] and Family Once a week 12/08/2018 Attends Holiness Services 1 to 4 times per year [...] PHQ-2 Score 0 06/22/2023 [facility] [place] of Occupat ional Health - Occupational Stress [...] your living situation today? I have a [facility] place to live 01/23/2024 Education Answer Date [...] as of this encounter Consult Notes * Stephan Ryan M.D., M.P.H. - 02/01/2024 8:20 AM CDT SUBJECTIVE Ordering Physician: Francesca Stern M.D. The patient was not personally interviewed or examined. The history and examination findings are based on the clinical documentation provided and/or discussed with a physician or provider who had personally interviewed and examined the patient. Time spent: Five minutes or more of medical review. Chief Complaint / Reason for Visit A consult was placed regarding Debora Valdes, a 53 y.o. female. Clinical question to be answered: patient with hemangiomas and possible biliary colic Any need for further imaging prior to consideration of cholecystectomy given anatomic locations of hemangiomas? History of Present Illness 53 y.o. female with recurrent biliary colic who was also found to have cavernous hemangiomas in thecaudate and medial left hepatic lobe. by CT imaging. Gallbladder ultrasound on 12/16/2023 again showed cholelithiasis without evidence for acute cholecystitis and a normal common bile duct. Most recent LFTs are within normal limits. ASSESSMENT / PLAN #1 Recurrent biliary colic #2 Cavernous hemangiomas of the liver At this point, no further imaging is required prior to cholecystectomy documented in this encounter Plan of Treatment Upcoming Encounters Date Type Department Care Team (Late st Contact Info) Description 03/22/2024 8:00 AM CDT Appointment Department of Radiation Oncology in [place], [place] [address] [place] [address] Abisai Ortega M.D. [address] [place] [address] documented as of this encounter Visit Diagnoses Diagnosis Colic Biliary documented in this encounter Additional Health Concerns Infection Onset Date Last Indicated Resolved Time Protective Environment 01/07/2023 01/07/2023 Assessment Noted Time PHQ-9 Depression Total Score: 13 01/17/2 019 8:17 AM CDT documented as of this encounter Care Teams Physical Instructor Relationship Specialty Start Date End Date Dianelys Solorio M.D. [address] [place] [phone] PCP - General Family Medicine 12/14/23 documented as of this encounter
--- OUTSIDE RECORDS SUMMARY | 2024-02-28 15:26 | XMS_ITS ---
Author Organization [facility] Address [address] [place] [address] Care Team Providers Care Production Posting Clerk Name Role Phone Dianelys Solorio M.D. Primary [...] Treated Prescribed Fraction Dose Prescribed Total Dose [id number] 02/05/2023 4 3 of 3 900 cGy 2,700 cGy F1 L3-5 Spine 02/08/2019 6 5 of 5 400 cGy 2,000 cGy Reference Point Last Treated On Elapsed Days Session Dose Total Dose [id number] 02/05/2023 4 900 cGy 2,700 cGy [id number] 02/08/2019 6 400 cGy 2,000 cGy
--- OUTSIDE RECORDS SUMMARY | 2024-02-28 15:26 | XMS_ITS | Encounter Summary ---
Author Organization [facility] Address [address] [place] [address] Care Team Providers Care Operations Engineer Name Role Phone Dianelys Solorio M.D. Primary Care Provider [phone] Reason for Referral * Outpatient (Routine) - Closed Specialty Diagnoses / Procedures Referred By Lito newberry Referred To Contact Diagnoses Colic Biliary Procedures US Gallbladder and or Biliary Ducts Norma Gandara P.A.-CEvette [address] [place] [phone] [facility] Referral ID Status Reason Start Date Expiration Date Visits Re quested Visits Authorized [id number] Closed 12/13/2023 12/12/2024 1 1 Reason for Visit * Outpatient (Routine) - Closed Specialty Diagnoses / Procedures Referred By Lito newberry Referred To Contact Diagnoses Colic Biliary Procedures US Gallbladder and or Biliary Ducts Norma Gandara P.AEvette-CEvette [address] [place] [phone] [facility] Referral ID Status Reason Start Date Expiration Date Visits Re quested Visits Authorized [id number] Closed 12/13/2023 12/12/2024 1 1 Encounter Details Date Type Department Care Team (Latest Contact Info) Description 12/16/2023 1:20 PM CDT - 12/16/2023 11:59 PM CDT Hospital Encounter Department of Radiology in [place], [place] [address] [place] [phone] Norma Gandara P.A.-C. [address] [facility] [phone] Colic Biliary Discharge Disposition: Home or Self [...] and Family Once a week 12/08/2018 Attends [employer] Services 1 to 4 times per year [...] Answer Date Recorded PHQ-2 Score 0 06/22/2023 [facility] of Occupat ional Health - Occupational Stress [...] CDT Appointment Department of Radiation Oncology in [place], [place] [address] [place] [address] Abisai Ortega M.D. [address] [place] [address] documented as of this encounter Procedures Procedure [...] documented as of this encounter Care Teams Operations Engineer Relationship Specialty Start Date End Date Dianelys Solorio M.D. [address] [place] [phone] PCP - General Family Medicine 12/14/23 documented as of this encounter
--- OUTSIDE RECORDS SUMMARY | 2024-02-28 15:26 | XMS_ITS | Encounter Summary ---
Author Organization [facility] Address [address] [place] [address] Care Team Providers Care Freelance Programmer/App Developer Name Role Phone Dianelys Solorio M.D. Primary Care Provider Reason for Visit * Appointment Request (Routine) - Pending Review Specialty Diagnoses / Procedures Referred By Lito newberry Referred To Contact Family Medicine Referral ID Status Reason Start Date Expiration Date V isits Requested Visits Authorized [id number] Pending Review 12/21/2023 12/20/2024 1 1 Encounter Details Date Type Department Care Team (Late st Contact Info) Description 01/10/2024 8:30 AM CDT Office Visit Department of Family Medicine, [facility], in [place] [address] [place] [address] Norma Gandara, P.A.-CEvette [address] [place] [phone] Preoperative Exam (Primary Dx); Pain Epigastric Social [...] and Family Once a week 12/08/2018 [facility]ends [facility] 1 to 4 times per year [...] Answer Date Recorded PHQ-2 Score 0 06/22/2023 [facility] of Occupat ional Health - Occupational Stress [...] your living situation today? I have a [facility] place to live 01/08/2023 Education Answer [...] SURGEON: Dr. Tejeda. PROPOSED SURGERY: Colonoscopy. LOCATION: [facility]. SUBJECTIVE HISTORY OF PRESENT ILLNESS Debora Valdes [...] CDT Appointment Department of Radiation Oncology in [place], [place] [address] [place] [phone] Abisai Ortega M.D. [address] [place] [address] documented as of this encounter Visit Diagnoses Diagnosis Preoperative Exam- Primary Pain Epigastric documented in this encounter Additional Health Concerns Infection Onset Date Last Indicated Resolved Time Protective Environment 01/07/2023 01/07/2023 Assessment Noted Time PHQ-9 Depression Total Score: 13 019 8:17 AM CDT documented as of this encounter Care Teams Freelance Programmer/App Developer Relationship Specialty Start Date End Date Dianelys oSlorio M.D. [address] [place] [address] [place] [address] PCP - General Family Medicine 12/14/23 documented as of this encounter
--- OUTSIDE RECORDS SUMMARY | 2024-02-28 15:26 | XMS_ITS | Encounter Summary ---
Author Organization [facility] Address [address] [place] [address] Care Team Providers Care Paperhanger Supervisor Name Role Phone Dianelys Solorio M.D. 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 [address] [place] [address] [facility] Referral ID Status Reason Start Date Expiration Date V isits Requested Visits Authorized [id number] Pending Review 12/20/2023 12/19/2024 1 1 Encounter Details Date Type Department Care Team (Late st Contact Info) Description 12/20/2023 Orders Only Department of General Surgery in [place], [place] [address] [place] [address] Francesca Baxter M.D. [address] [place] [address] Colic Biliary (Primary Dx); Malignant [...] and Family Once a week 12/08/2018 Attends [employer] [facility] 1 to 4 times per year [...] Answer Date Recorded PHQ-2 Score 0 06/22/2023 [facility] of Occupat ional Health - Occupational Stress [...] your living situation today? I have a [facility] place to live 01/08/2023 Education Answer [...] CDT Appointment Department of Radiation Oncology in [place], [place] [address] [place] [phone] Abisai Ortega M.D. [address] [place] [address] Scheduled Orders Name Type Priority Associated Diagnoses [...] as of this encounter Care Teams Paperhanger Supervisor Relationship Specialty Start Date End Date Dianelys Solorio M.D. [address] [place] [phone] PCP - General Family Medicine 12/14/23 documented as of this encounter
--- OUTSIDE RECORDS SUMMARY | 2024-02-28 15:26 | XMS_ITS | Encounter Summary ---
Author Organization [facility] Address [address] [place] [address] Care Team Providers Care Roof Cement And Paint Maker Helper Name Role Phone Dianelys Solorio M.D. Primary Care Provider [phone] Reason for Referral * Outpatient (Routine) - Closed Specialty Diagnoses / Procedures Referred By Contact Referred To Contact Gastroenterology and Hepatology Diagnoses Colic Biliary Procedures Gastroenterology and Hepatology - Hepatobiliary eConsult Francesca Baxter M.D. [address] [place] [address] [facility] Referral ID Status Reason Start Date Expiration Date Visits Re quested Visits Authorized [id number] Closed 12/21/2023 12/20/2024 1 1 Reason for Visit [...] Colic Biliary Norma Gandara P.A.-C. [address] [place] [address] [facility] Referral ID Status Reason Start Date Expiration Date V isits Requested Visits Authorized [id number] Closed Specialty Services Required 12/13/2023 06/13/2025 1 1 Encounter Details Date Type Department Care Team (Late st Contact Info) Description 12/21/2023 8:30 AM CDT Comprehensive Visit Department of General Surgery in [place], [place] [address] [place] [address] Francesca Baxter M.D. [address] [place] [address] Colic Biliary Social History Tobacco [...] and Family Once a week 12/08/2018 Attends [employer] [facility] 1 to 4 times per year [...] Answer Date Recorded PHQ-2 Score 0 06/22/2023 [facility] - Occupational Stress Questionnaire Answer [...] living situation today? I have a [facility] place to live 01/08/2023 Education Answer Date [...] CDT Appointment Department of Radiation Oncology in [place], [place] [address] [place] [address] Abisai Ortega M.D. [address] [place] [address] documented as of this encounter Visit Diagnoses Diagnosis Colic Biliary documented in this encounter Additional Health Concerns Infection Onset Date Last Indicated Resolved Time Protective Environment 01/07/2023 01/07/2023 Assessment Noted Time PHQ-9 Depression Total Score: 13 01/17/ 019 8:17 AM CDT documented as of this encounter Care Teams Roof Cement And Paint Maker Helper Relationship Specialty Start Date End Date Dianelys Solorio M.D. [address] [place] [address] PCP - General Family Medicine 12/14/23 documented as of this encounter
--- NOTE | 2024-02-28 16:00 | CRLHL7_ITS ---
For Patients: As a result of the Century Cures Act, medical imaging exams and procedure reports are released immediately into your electronic medical record. You may view this report before your referring provider. If you have questions, please contact your health care provider. INDICATION: Metastatic lung cancer TECHNIQUE: CT chest, abdomen and pelvis acquired with 104 mL Isovue 370 IV contrast. COMPARISON: 11/15/2023, 08/02/2023 chest abdomen pelvis CTs FINDINGS: CHEST: Cardiovascular structures: Heart size is normal. Thoracic aorta and main pulmonary artery are normal in caliber. Mediastinum and gray: No mass or adenopathy. Lungs and pleura: Right lower lobectomy. Remaining lungs are clear. Chest wall and axilla: No mass or adenopathy. Bones: No suspicious bone lesions. Unremarkable for age. ABDOMEN AND PELVIS: Liver: Stable hemangiomas in the left hepatic lobe and caudate lobe. No suspicious liver masses. Gallbladder and bile ducts: Cholelithiasis. Gallbladder is contracted. Pancreas: Unremarkable. Spleen: Unremarkable. Adrenal glands: Unremarkable. Kidneys: Unremarkable. GI tract: Unremarkable. Vascular structures: Unremarkable. Lymph nodes: Unremarkable. Miscellaneous: Unremarkable. No free air or significant free fluid. Pelvic Organs: IUD in the uterus. Bones: No suspicious bone lesions. Unremarkable for age. IMPRESSION: Right lower lobectomy. No evidence for metastatic disease. No change. Please note that all CT scans at this facility use dose modulation, iterative reconstruction, and/or weight-based dosing when appropriate to reduce radiation dose to as low as reasonably achievable. Dictated by Niikta Escalona MD @ 02/29/2024 3:42:02 PM (Electronically Signed)
== END 2024-02-28 15:24 | disposition home or self-care (01) ==
LOC: CT 15:23
PROVIDERS: PCP Physician Assistant; Visit Provider Internal Medicine Hematology & Oncology
DX: C34.91 Malignant neoplasm of unspecified part of right bronchus or lung (principal); Z90.2 Acquired absence of lung [part of]
CPT/HCPCS: 71260; 74177; Q9967

== ENCOUNTER 2024-03-06 13:30 | Outpatient (RCR) | payer BC, SELFPAY ==
[2024-01-19 16:34] LABS: Basophils Absolute Auto 0.03 K/uL (0.00-0.30); Basophils Percent Auto 0.3 % (0.0-3.0); Eosinophils Absolute Auto 0.17 K/uL (0.00-0.50); Hematocrit 41.9 % (33.0-51.0); Immature Granulocytes Abs Auto 0.01 K/uL (0.00-0.30); Immature Granulocytes Pct Auto 0.1 %; Lymphocytes Absolute Auto 2.18 K/uL (0.90-2.90); Lymphocytes Percent Auto 25.4 % (20-44); Mean Corpuscular HGB Conc 33 gm/dL (32-36); Mean Corpuscular Hemoglobin 31 pg (26-34); Mean Corpuscular Volume 94 fL (80-100); Monocytes Percent Auto 4.5 % (0.0-11.0); Neutrophils Percent Auto 67.7 % (42.0-72.0); Platelet Count* 260 K/uL (140-440); RDW Coefficient of Variation % 12.2 % (11.5-15.5); Red Blood Count 4.48 m/uL (4.00-5.20); White Blood Count* 8.58 K/uL (4.50-11.00)
[2024-01-19 16:54] LABS: Slide Review Reflex No
[2024-01-19 17:07] LABS: Albumin* 4.7 g/dL (3.3-5.0); Chloride* 100 mmol/L (96-114); Potassium* 4.1 mmol/L (3.6-5.1); Sodium* 137 mmol/L (135-149)
[2024-01-19 17:10] LABS: Alanine Aminotransferase* 22 U/L (4-35); Alkaline Phosphatase* 139 U/L (40-150); Anion Gap 7 mEq/L (7-15); Aspartate Amino Transferase* 30 U/L (12-35); Bilirubin Total* 1.6 mg/dL (0.1-1.5); Blood Urea Nitrogen* 10 mg/dL (7-30); Carbon Dioxide* 30 mmol/L (20-32); Creatinine* 0.8 mg/dL (0.5-1.5); Estimated Glomerular Filt Rate 89 ml/min; Glucose* 110 mg/dL (60-115); Total Protein* 7.9 g/dL (6.0-8.3)
[2024-01-19 17:11] LABS: Calcium* 9.8 mg/dL (8.4-10.6)
[2024-03-06 13:27] LABS: Bilirubin Total* 1.1 mg/dL (0.1-1.5)
== END 2024-04-08 23:59 | disposition home or self-care (01) ==
LOC: CCIC 13:30
PROVIDERS: Visit Provider Internal Medicine Hematology & Oncology
DX: C34.91 Malignant neoplasm of unspecified part of right bronchus or lung (principal); R10.9 Unspecified abdominal pain
CPT/HCPCS: 36415; 80053; 82247; 85025; 99213; 99214; G0463

== ENCOUNTER 2024-03-20 07:02 | Outpatient (CLI) | payer BC, SELFPAY ==
--- OUTSIDE RECORDS SUMMARY | 2024-03-20 07:04 | XMS_ITS | Encounter Summary ---
Author Organization [facility] Address [address] [place] [address] Care Team Providers Care Hourly Associate Name Role Phone Dianelys Solorio M.D. 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 [address] [place] [address] Phone: tel: fax: [facility] Region Referral ID Status Reason Start Date Expiration Date V isits Requested Visits Authorized [id number] Pending Review 12/20/2023 12/19/2024 1 1 Encounter Details Date Type Department Care Team (Late st Contact Info) Description 12/20/2023 Orders Only Department of General Surgery in [place], [place] [address] [place] [address] Francesca Baxter M.D. [address] [place] [address] Colic Biliary (Primary Dx); Malignant [...] Answer Date Recorded PHQ-2 Score 0 06/22/2023 [facility] of Occupat ional Health - Occupational Stress [...] your living situation today? I have a [facility] place to live 01/08/2023 Education Answer Date Recorded What is the highest level of school you have completed or the highest degree you have received? Associate degree: occupational, technical, or vocational program 12/08/2018 Comments No Sex and Gender Information Value Date Recorded Sex Assigned at Female 01/08/2023 5:32 AM CDT Legal Sex Female 4:19 AM BASEBALL SEWER HAND Gender Identity Female 12/08/2018 2:54 PM CDT Sexual Orientation Straight 12/08/2018 2: 54 PM CDT documented as of this encounter Plan of Treatment Upcoming Encounters Date Type Department Care Team (Late st Contact Info) Description 03/22/2024 8:00 AM CDT Appointment Department of Radiation Oncology in [place], [place] [address] [place] [address] Abisai Ortega M.D. [address] [place] [address] Scheduled Orders Name Type Priority Associated Diagnoses [...] documented as of this encounter Care Teams Hourly Associate Relationship Specialty Start Date End Date Dianelys Solorio M.D. [address] [place] [phone] PCP - General Family Medicine 12/14/23 documented as of this encounter
--- OUTSIDE RECORDS SUMMARY | 2024-03-20 07:04 | XMS_ITS | Encounter Summary ---
Author Organization [facility] Address [address] [place] [address] Care Team Providers Care Coat Fitter Name Role Phone Dianelys Solorio M.D. Primary Care Provider Encounter Details Date Type Department Care Team (Latest Contact Info) Description 01/26/2024 1:55 PM CDT Ancillary Procedure Department of Radiology in [place], [place] [address] [place] [address] Sarai Yoon P.A.-C., M.S. [address] [place] [address] Malignant Neoplasm Of Lung Adenocarcinoma Right (HCC); Secondary Malignant Neoplasm Brain (HCC) Social History Tobacco Use Types Packs/Day Years Used Date Smoking Tobacco: Former Cigarettes - 2014 Smokeless Tobacco: Never Alcohol Use Standard Drinks/Week Comments Yes 1 (1 standard drink = 0.6 oz pure alcohol) A glass a couple times a month sometimes [facility] Utilities Answer Date Recorded In the past 12 months has [facility] electric, gas, oil, or water [employer] threatened to shut off services in your [...] and Family Once a week 12/08/2018 Attends [employer] 1 to 4 times per year [...] your living situation today? I have a [facility] place to live 01/23/2024 Education Answer Date Recorded What is the highest level of school you have completed or the highest degree you have received? 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 [address] [place] [address] documented as of this encounter Procedures Procedure [...] enhancement in the right superior frontal gyrus, [id number] image 21. This finding has not substantially [...] studies. Sarai Yoon P.A.-C. M.S. IMG MRI PROCEDURES Fin al Result documented in this encounter Visit Diagnoses Diagnosis Malignant Neoplasm Of Lung Adenocarcinoma Right (HCC) Secondary Malignant Neoplasm Brain (HCC) documented in this encounter Additional Health Concerns Infection Onset Date Last Indicated Resolved Time Protective Environment 01/07/2023 01/07/2023 Assessment Noted Time PHQ-9 Depression Total Score: 13 01/17/ 019 8:17 AM CDT documented as of this encounter Care Teams Coat Fitter Relationship Specialty Start Date End Date Dianelys Solorio M.D. [address] [place] [phone] PCP - General Family Medicine 12/14/23 documented as of this encounter
--- OUTSIDE RECORDS SUMMARY | 2024-03-20 07:04 | XMS_ITS | Encounter Summary ---
Author Organization [facility] Address [address] [place] [address] Care Team Providers Care School Cafeteria Head Cook Name Role Phone Dianelys Solorio M.D. Primary Care Provider [phone] Reason for Referral * Outpatient (Routine) - Authorized Specialty Diagnoses / Procedures Referred By Lito newberry Referred To Contact Radiation Oncology Sarai Yoon P.A.-C., M.S. [address] [place] [phone] Phone: tel: fax: Abisai Ortega M.D. [address] [place] [phone] Phone: tel: fax: Referral ID Status Reason Start Date Expiration Date V isits Requested Visits Authorized [id number] Authorized 01/26/2024 07/27/2025 1 1 Scheduling Instructions Schedule after next brain MRI imaging (February vs. March 2024). Please get images and report when available and notify the care team when available so that it can be reviewed for possible ordering of [facility] read PRIOR to her appointment. * MRI/CAT/PET Scan (Routine) - Pending Review Specialty Diagnoses / Procedures Referred By Lito newberry Referred To Contact Radiology Diagnoses Malignant Neoplasm Of Lung Adenocarcinoma Right (HCC) Secondary Malignant Neoplasm Brain (HCC) Procedures MR Brain without and with IV Contrast Sarai Yoon P.A.-C., M.S. [address] [place] [phone] Phone: tel: fax: [facility] Region Referral ID Status Reason Start Date Expiration Date V isits Requested Visits Authorized [id number] Pending Review 01/26/2024 01/25/2025 1 1 * Outpatient (Routine) - Closed Specialty Diagnoses / Procedures Referred By Lito newberry Referred To Contact Radiation Oncology Sarai Yoon P.A.-C., M.S. [address] [place] [phone] Phone: tel: fax: Abisai Ortega M.D. [address] [place] [phone] Phone: tel: fax: Referral ID Status Reason Start Date Expiration Date Visits Re quested Visits Authorized [id number] Closed 10/19/2023 04/19/2025 1 1 Scheduling Instructions MRI brain prior at [facility]; please get report and images prior to visit Reason for Visit * Outpatient (Routine) - Closed Specialty Diagnoses / Procedures Referred By Lito t Referred To Contact Radiation Oncology Sarai Yoon P.A.-C., M.SEvette [address] [place] [phone] Phone: tel: fax: Abisai Ortega M.D. [address] [place] [phone] Phone: tel: fax: Referral ID Status Reason Start Date Expiration Date Visits Re quested Visits Authorized [id number] Closed 10/19/2023 04/19/2025 1 1 Encounter Details Date Type Department Care Team (Latest Contact Info) Description 01/26/2024 1:04 PM CDT - 01/27/2024 5:37 PM CDT Hospital Encounter Department of Radiation Oncology in [place], [place] [address] [place] [address] Abisai Ortega M.D. [address] [place] [address] Malignant Neoplasm Of Lung Adenocarcinoma Right (HCC) (Primary Dx); Secondary Malignant Neoplasm Brain (HCC); Secondary Malignant Neoplasm Bone (HCC) Social History Tobacco Use Types Packs/Day Years Used Date Smoking Tobacco: Former Cigarettes 1 2014 Smokeless Tobacco: Never Alcohol Use Standard Drinks/Week Comments Yes 1 (1 standard drink = 0.6 oz pure alcohol) A glass a couple times a month sometimes [employer] Answer Date Recorded In the past 12 months has [employer], gas, oil, or water [employer] threatened to shut off services in your [...] PHQ-2 Score 0 06/22/2023 [facility] of Occupat ional Health - Occupational [...] AM CDT Legal Sex 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 08/05/2015 [...] Bone (HCC) SUPERVISED BY: Abisai Ortega M.D. ([id number]) HISTORY OF PRESENT ILLNESS Mrs. Debora Valdes [...] pazopanib therapy. She was seen by at [facility], and changed ALK communication to [...] received her first cycle of cisplatin plus CABLE SUPERVISOR-16 from December 10 to December 17, [...] completed on July 23, 2015 at the [facility]. She was seen in Medical Oncology by Dr. Gonzáles in [facility] on November 21, 2015 who discussed [...] Dr. Yaritza Taylor in Medical Oncology at [facility] who ordered Alectinib and proceeding with radiation therapy to L4 and repeat brain MRI 6 weeks after she starts systemic therapy. If there is evidence of GARAGE LABORER progression consider gamma knife therapy. Observation of [...] 27Gy in 3 fractions. 04/20/2023 Critical Imaging [facility] interpretation of outside brain MR IMPRESSION: Slight [...] changes in the cerebral white matter. [facility] Interpretation IMPRESSION: Stable to slight increase [...] 5/5 in the upper and lower extremities. Onqwbe-cc-cnvt, vjsm-uu-lgec, and rapid alternating movements are normal. Recall 3/3 words. 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 Depending on the [facility] interpretation, we discussed repeating a brain MRI again in 2-3 months. The patient would like the imaging performed at [facility]. The patient is also scheduled for a [...] face patient care. Signed by: Sarai Yoon P.A.-C. MCharles 01/26/2024 4:30 PM CDT [facility] [address] [place] [address] ADDENDUM: The [facility] Interpretation of her brain MRI imaging [...] she was in agreement with the plan. Cosigned by Abisai Ortega M.D. at 01/27/2024 5:36 PM CDT Associated attestation - Abisai Ortega M.D. - [...] 3 right frontal brain metastasis finishing on February 05, 2023. The patient appears well on exam and [...] 15 minutes caring for this patient including smed-da-obbl and geb-fbwt-yf-face time. Signed by: Abisai Ortega M.D. 01/27/24 5:36 PM CDT [facility] [place] documented in this encounter Miscellaneous Notes * Addendum Note - Suzanne Bach - 01/26/2024 1:30 PM CDTEncounter addended by: Suzanne Bach on: 01/28/2024 9:46 AM Actions taken: Letter saved documented in this encounter Plan of Treatment Upcoming Encounters Date Type Department Care Team (Late st Contact Info) Description 03/22/2024 8:00 AM CDT Appointment Department of Radiation Oncology in [place], [place] [address] [place] [address] Abisai Ortega M.D. [address] [place] [address] Scheduled Orders Name Type Priority Associated Diagnoses [...] enhancement in the right superior frontal gyrus, [id number] image 21. This finding has not substantially [...] recent comparison studies. Sarai Yoon P.A.-C. M.S. IM MRI PROCEDURES Fin al Result documented in [...] documented as of this encounter Care Teams School Cafeteria Head Cook Relationship Specialty Start Date End Date Dianelys Solorio M.D. NPGayle: [phone] [address] [place] [address] [place] [phone] PCP - General Family Medicine 12/14/23 documented as of this encounter
--- OUTSIDE RECORDS SUMMARY | 2024-03-20 07:04 | XMS_ITS | Encounter Summary ---
Author Organization [facility] Address [address] [place] [address] Care Team Providers Care Central Control Room Operator Name Role Phone Dianelys Solorio M.D. Primary Care Provider [phone] Reason for Visit * Outpatient (Routine) - Closed Specialty Diagnoses / Procedures Referred By Contact Referred To Contact Gastroenterology and Hepatology Diagnoses Colic Biliary Procedures Gastroenterology and Hepatology - Hepatobiliary eConsult Francesca Baxter M.D. [address] [place] [address] Phone: tel:[phone] fax:[phone] [facility] Referral ID Status Reason Start Date Expiration Date Visits Re quested Visits Authorized [id number] Closed 12/21/2023 12/20/2024 1 1 Encounter Details Date Type Department Care Team (Latest Contact Info) Description 02/01/2024 8:20 AM CDT Internal E-Consult Division of Gastroenterology in [place], [place] [address] [place] [address] Francesca Baxter M.D. [address] [place] [address] Stephan Ryan M.D., M.P.H. [address] [place] [phone] Colic Biliary Social History Tobacco Use Types Packs/Day Years Used Date Smoking Tobacco: Former Cigarettes 2014 Smokeless Tobacco: Never Alcohol Use Standard Drinks/Week Comments Yes 1 (1 standard drink = 0.6 oz pure alcohol) A glass a couple times a month sometimes [facility] Utilities Answer Date Recorded In the past 12 months has th e electric, gas, oil, or water company [...] and Family Once a week 12/08/2018 Attends [employer] 1 to 4 times per year [...] Answer Date Recorded PHQ-2 Score 0 06/22/2023 [facility] [place] of Occupat ional Health - Occupational Stress [...] your living situation today? I have a [facility] place to live 01/23/2024 Education Answer Date Recorded What is the highest level of school you have completed or the highest degree you have received? 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 [address] [place] [address] documented as of this encounter Visit Diagnoses Diagnosis Colic Biliary documented in this encounter Additional Health Concerns Infection Onset Date Last Indicated Resolved Time Protective Environment 01/07/2023 01/07/2023 Assessment Noted Time PHQ-9 Depression Total Score: 13 01/17/ 019 8:17 AM CDT documented as of this encounter Care Teams Central Control Room Operator Relationship Specialty Start Date End Date Dianelys Solorio M.D. [address] [place] [phone] PCP - General Family Medicine 12/14/23 documented as of this encounter
--- OUTSIDE RECORDS SUMMARY | 2024-03-20 07:04 | XMS_ITS | Encounter Summary ---
Author Organization [facility] Address [address] [place] [address] Care Team Providers Care Medical Equipment Sales Name Role Phone Dianelys Solorio M.D. Primary Care Provider Reason for Referral * Outpatient (Routine) - Closed Specialty Diagnoses / Procedures Referred By Lito newberry Referred To Contact Diagnoses Colic Biliary Procedures US Gallbladder and or Biliary Ducts Norma Gandara P.A.-C. [address] [place] [phone] Phone: tel: fax: [facility] Region Referral ID Status Reason Start Date Expiration Date Visits Re quested Visits Authorized [id number] Closed 12/13/2023 12/12/2024 1 1 Reason for Visit * Outpatient (Routine) - Closed Specialty Diagnoses / Procedures Referred By Lito newberry Referred To Contact Diagnoses Colic Biliary Procedures US Gallbladder and or Biliary Ducts Norma Gandara P.A.-C. [address] [place] [address] Phone: tel: fax: [facility] Region Referral ID Status Reason Start Date Expiration Date Visits Re quested Visits Authorized [id number] Closed 12/13/2023 12/12/2024 1 1 Encounter Details Date Type Department Care Team (Latest Contact Info) Description 12/16/2023 1:20 PM CDT - 12/16/2023 11:59 PM CDT Hospital Encounter Department of Radiology in [place], [place] [address] [facility] [place] [address] oNrma Gandara P.A.-C. [address] [place] [address] Colic Biliary Discharge Disposition: Home or Self [...] PHQ-2 Score 0 06/22/2023 [facility] of Occupat ional Health - Occupational Stress [...] your living situation today? I have a [facility] place to live 01/08/2023 Education Answer Date Recorded What is the highest level of school you have completed or the highest degree you have received? 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 [address] [place] [address] documented as of this encounter Procedures Procedure [...] or HIDA scan if clinical concern persists. us Norma Gandara P.A.-C. IMG US PROCEDURES Final Re sult documented in this encounter Visit Diagnoses Diagnosis Colic Biliary documented in this encounter Additional Health Concerns Infection Onset Date Last Indicated Resolved Time Protective Environment 01/07/2023 01/07/2023 Assessment Noted Time PHQ-9 Depression Total Score: 13 019 8:17 AM CDT documented as of this encounter Care Teams Medical Equipment Sales Relationship Specialty Start Date End Date Dianelys Solorio M.D. [address] [place] [phone] PCP - General Family Medicine 12/14/23 documented as of this encounter
--- OUTSIDE RECORDS SUMMARY | 2024-03-20 07:04 | XMS_ITS | Encounter Summary ---
Author Organization [facility] Address [address] [place] [address] Care Team Providers Care Manager Fixed Income Name Role Phone Dianelys Solorio M.D. Primary Care Provider Reason for Visit * Appointment Request (Routine) - Pending Review Specialty Diagnoses / Procedures Referred By Lito newberry Referred To Contact Family Medicine Referral ID Status Reason Start Date Expiration Date V isits Requested Visits Authorized [id number] Pending Review 12/21/2023 12/20/2024 1 1 Encounter Details Date Type Department Care Team (Late st Contact Info) Description 01/10/2024 8:30 AM CDT Office Visit Department of Family Medicine, [facility], in [place] [address] [place] [address] Norma Gandara, P.A.-CEvette [address] [place] [phone] Preoperative Exam (Primary Dx); Pain Epigastric Social [...] and Family Once a week 12/08/2018 Attends [employer] 1 to 4 times per year [...] Answer Date Recorded PHQ-2 Score 0 06/22/2023 [facility] of Occupat ional Health - [...] your living situation today? I have a [facility] place to live 01/08/2023 Education Answer Date Recorded What is the highest level of school you have completed or the highest degree you have received? Associate degree: occupational, technical, or vocational program 12/08/2018 Comments No Sex and Gender Information Value Date Recorded Sex Assigned at Female 01/08/2023 5:32 AM CDT Legal Sex Female 4:19 AM DIRECT CARE SUPERVISOR Gender Identity Female 12/08/2018 2:54 PM [...] SURGEON: Dr. Tejeda. PROPOSED SURGERY: Colonoscopy. LOCATION: [facility] [place]. SUBJECTIVE HISTORY OF PRESENT ILLNESS Debora Valdes [...] CDT Appointment Department of Radiation Oncology in [place], [place] [address] [place] [phone] Abisai Ortega M.D. [address] [place] [address] documented as of this encounter Visit Diagnoses Diagnosis Preoperative Exam- Primary Pain Epigastric documented in this encounter Additional Health Concerns Infection Onset Date Last Indicated Resolved Time Protective Environment 01/07/2023 01/07/2023 Assessment Noted Time PHQ-9 Depression Total Score: 13 01/17/ 019 8:17 AM CDT documented as of this encounter Care Teams Manager Fixed Income Relationship Specialty Start Date End Date Dianelys Solorio M.D. NPGayle: [phone] [address] [place] [phone] PCP - General Family Medicine 12/14/23 documented as of this encounter
--- OUTSIDE RECORDS SUMMARY | 2024-03-20 07:04 | XMS_ITS | Referral Summary ---
Author Organization [facility] Address [address] [place] [address] Care Team Providers Care Nutrition Helper Name Role Phone Dianelys Solorio M.D. Primary Care Provider Source Comments Patient records contain information from all sites at [facility]. For routine questions regarding patient records, call [phone] during business hours, M-F 8:00 AM - 5:00 PM Central Time. Record requests for emergency care only can be directed to [phone] at any time.[facility] Encounters Date Type Department Care Team Description 02/22/2024 Orders Only [facility] Dianelys Solorio M.D. Screening Examination Diabetes Mellitus; Screening Lipid 02/01/2024 8:20 AM CDT Internal E-Consult Division of Gastroenterology in [place], [place] [address] [place] [address] Francesca Baxter M.D. Talwalkar, Jayant A, M.D., M.P.H. Colic Biliary 01/26/2024 1:04 PM CDT - 01/27/2024 5:37 PM CDT Hospital Encounter Department of Radiation Oncology in [place], [place] [address] [place] [address] Abisai Ortega M.D. Malignant Neoplasm Of Lung Adenocarcinoma Right (HCC) (Primary Dx); Secondary Malignant Neoplasm Brain (HCC); Secondary Malignant Neoplasm Bone (HCC) 01/26/2024 Clinical Communication Department of General Surgery in [place], [place] [address] [place] [phone] Francesca Baxter M.D. Results 01/26/2024 1:55 PM CDT Ancillary Procedure Department of Radiology in [place], [place] [address] [place] [address] Sarai Yoon P.A.-C., M.S. Malignant Neoplasm Of Lung Adenocarcinoma Right (HCC); Secondary Malignant Neoplasm Brain (HCC) 01/10/2024 8:30 AM CDT Office Visit Department of Family Medicine, [facility], in [place], [place] [address] [place] [address] Norma Gandara P.A.-C. Preoperative Exam (Primary Dx); Pain Epigastric 12/21/2023 8:30 AM CDT Comprehensive Visit Department of General Surgery in [place], [place] [address] [place] [phone] Francesca Baxter M.D. Colic Biliary 12/20/2023 Clinical Communication Department of General Surgery in [address] [phone] Francesca Baxter M.D. 12/20/2023 Orders Only Department of General Surgery in [address] [phone] Francesca Baxter M.D. Colic Biliary (Primary Dx); Malignant Neoplasm Of Lung Adenocarcinoma Right (HCC) from Last 3 Months Allergies No known active allergies Medications acetaminophen 325 mg capsule as needed. 6 Active levonorgestrel (MIRENA) 20 mcg/24 hours (5 yrs) 52 mg IUD by intrauterine route. 7 Active ALECENSA 150 mg capsule 9 Active Active Problems Problem Noted Date Diagnosed [...] glass a couple times a month sometimes [employer] Utilities Answer Date Recorded In the past 12 months has [facility] [employer], oil, or water [employer] threatened to shut off services in your [...] Answer Date Recorded PHQ-2 Score 0 06/22/2023 [facility] of Occupat ional Health [...] AM CDT Legal Sex Female 4:19 AM ONLINE MARKETING STRATEGIST Gender Identity Female 12/08/2018 2:54 PM CDT [...] CDT Appointment Department of Radiation Oncology in [place], [place] [address] [place] [phone] Abisai Ortega M.D. [address] [place] [address] Medical Devices Implanted Type Area Subcontract Administrator Device Identifier Shelf Expiration Date Model / [...] MR NEURO Routine 01/19/2024 3:40 PM CDT GLUCOSE, FASTING, S/P Routine 09/07/2014 10:25 AM CDT LIPID PANEL, S Routine 04/04/2013 7:24 AM ONLINE MARKETING STRATEGIST BI BREAST SCREENING BILATERAL Routine 03/30/2013 4:07 PM ONLINE MARKETING STRATEGIST PATHOLOGY TRY ON BASTER CYTOLOGY Routine 03/30/2013 12:00 AM ONLINE MARKETING STRATEGIST from Last 3 Months or Most Recently [...] enhancement in the right superior frontal gyrus, [id number] image 21. This finding has not substantially [...] studies. Sarai Yoon P.A.-C., M.S. IMG MRI PROCEDURES Fin al Result * GI Tract-Outside Photo (01/21/2024 12:05 AM CDT) Only the most recent of2 resultswithin the time period is included. Narrative IIMS - 02/02/2024 10:02 AM CDT This order has been created and auto-finalized to support the import of outside images. If available, original interpretation can be found on the Media Tab in Chart Review, in Document Viewer, as an image in QREADS or as an Addendum. If a re-interpretation or overread is required please follow defined workflow.?? us Provider Not In System IMG NON RAD IMAGING PROCE DURES Final Result IINY NA * MR head/brain wo/w con-Outside MR Neuro (01/19/2024 3:40 PM CDT) Narrative IIMS - 01/20/2024 8:55 AM CDT This order has been created and auto-finalized to support the import of outside images. If available, original interpretation can be found on the Media Tab in Chart Review, in Document Viewer, as an image in QREADS or as an Addendum. If a re-interpretation or overread is required please follow defined workflow.?? us Provider Not In System IMG MRI PROCEDURES Final Result Performing Organization Address [facility] de Phone Number IINY NA * (ABNORMAL) Glucose, Fasting (09/07/2014 10:25 AM CDT) Last Intake 14 HR [facility] Glucose, P 101(H) 70 - 100 MG/DL [facility] 09/07/2014 10:2 5 AM CDT 09/07/2014 10:25 AM CDT Lonnie Moreland P.A.-C. LAB BLOOD NON ADD-ON F inal Result Performing Organization Address [facility] de Phone Number [facility] [address] * (ABNORMAL) Lipid Panel (04/04/2013 7:24 AM ONLINE MARKETING STRATEGIST) Calculated LDL 141(H) 0 - 100 MGDL POWERCHART Total Cholesterol/HDL Ratio 5.23(H) 2.20 - 4.40 POWERCHART Cholesterol, Total 204(H) <=200 MGDL POWERCHART HX HDL 39(L) 40 - 60 MGDL POWERCHART Triglycerides 119 <=150 MGDL POWERCHART HXLDL/HDL 4 POWERCHART Blood 04/04/2013 7:24 AM ONLINE MARKETING STRATEGIST Rachel Foreman M.D. LAB BLOOD ADD-ON Final Resu lt Performing Organization Address [facility] de Phone Number POWERCHART * BI Breast Screening Bilateral (03/30/2013 4:07 PM ONLINE MARKETING STRATEGIST) Anatomical Region Laterality Modality Breast Bilateral Mammography 03/30/2013 4:07 PM ONLINE MARKETING STRATEGIST Impressions 03/31/2013 10:19 AM ONLINE MARKETING STRATEGIST Recommendations: ??I recommend a follow-up mammogram in [...] digital mammogram images. Narrative 03/31/2013 10:19 AM ONLINE MARKETING STRATEGIST EXAM: MA Mammo Screening w/ CADD INDICATION: [...] is performed on the digital mammogram images. us Radha FieldsT.(R), R.T.(R)(M) IMG BI PROCED URES Edited Result - Final * Pathology TRY ON BASTER Cytology (03/30/2013 12:00 AM ONLINE MARKETING STRATEGIST) 03/30/2013 Narrative [facility] - 04/04/2013 1:28 PM ONLINE MARKETING STRATEGIST [facility] in [place] [address] [facility] [address] [place], [place] ??[address] Patient Name: DEBORA RUBY Collected: 03/30/2013 Address: City/State/Zip: [address], [place] [id number] Received: Reported: 03/31/2013 04/04/2013 Soc. Sec. #: ?/Age/Sex 1970 (Age: 42) ??F Physician(s): [place] FOREMAN MD Copy To: ? [facility] ??[phone] [facility], ??[place] ??[address] CYTOPATHOLOGY TRY ON BASTER REPORT FINAL CYTOLOGIC DIAGNOSIS Pap Smear, Vagina [...] Clinical Conditions: HPV TYPING REQUESTED: IF ASCUS us Rachel Foreman M.D. LAB PAP COPATH ORDERABLES F inal Result [facility] from Last 3 Months or Most Recently Relevant to Health Maintenance Additional Health Concerns Infection Onset Date Last Indicated Protective Environment 01/07/2023 3 Insurance [facility] Care Teams Nutrition Helper Relationship Specialty Start Date End Date Dianelys Solorio M.D. [address] [place], [place] [address] [phone] PCP - General Family Medicine 12/14/23
--- OUTSIDE RECORDS SUMMARY | 2024-03-20 07:04 | XMS_ITS | Encounter Summary ---
Author Organization [facility] Address [address] [place] [address] Care Team Providers Care Bone Drier Name Role Phone Dianelys Solorio M.D. Primary Care Provider Encounter Details Date Type Department Care Team (Late st Contact Info) Description 02/22/2024 Orders Only [facility] Dianelys Solorio M.D. [address] [place] [address] [place] [phone] Screening Examination Diabetes Mellitus; Screening Lipid Social History Tobacco Use Types Packs/Day Years Used Date Smoking Tobacco: Former Cigarettes 2014 Smokeless Tobacco: Never Alcohol Use Standard Drinks/Week Comments Yes 1 (1 standard drink = 0.6 oz pure alcohol) A glass a couple times a month sometimes [facility] Utilities Answer Date Recorded In the past 12 months has [employer], oil, or water [employer] threatened to shut off services in your [...] and Family Once a week 12/08/2018 Attends [employer] 1 to 4 times per year [...] living situation today? [facility] 01/23/2024 Education Answer Date Recorded What is the highest level of school you have completed or the highest degree you have received? 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 [address] [place] [address] Scheduled Orders Name Type Priority Associated Diagnoses [...] documented as of this encounter Care Teams Bone Drier Relationship Specialty Start Date End Date Dianelys Solorio M.D. [address] [place] [phone] PCP - General Family Medicine 12/14/23 documented as of this encounter
--- OUTSIDE RECORDS SUMMARY | 2024-03-20 07:04 | XMS_ITS | Encounter Summary ---
Author Organization [facility] Address [address] [place] [address] Care Team Providers Care Shopper Insights Manager Name Role Phone Jessica Schulz APRN, C.N.P., D.N.P. Primary C are Provider Reason for Referral * Outpatient (Routine) - Closed Specialty Diagnoses / Procedures Referred By Lito newberry Referred To Contact General Surgery Diagnoses Colic Biliary Norma Gandara P.A.-C. [address] [place] [address] Phone: tel: fax: [facility] Referral ID Status Reason Start Date Expiration Date V isits Requested Visits Authorized [id number] Closed Specialty Services Required 12/13/2023 06/13/2025 1 1 * Outpatient (Routine) - Closed Specialty Diagnoses / Procedures Referred By Lito newberry Referred To Contact Diagnoses Colic Biliary Procedures US Gallbladder and or Biliary Ducts Norma Gandara P.A.-C. [address] [place] [address] Phone: tel: fax: [facility] Region Referral ID Status Reason Start Date Expiration Date Visits Re quested Visits Authorized [id number] Closed 12/13/2023 12/12/2024 1 1 Reason for [...] Expiration Date Visits Re quested Visits Authorized [id number] Closed 11/29/2023 11/28/2024 1 1 Encounter Details Date Type Department Care Team (Late st Contact Info) Description 12/13/2023 8:00 AM CDT Office Visit Department of Family Medicine, [facility], in [place], [place] [address] [place] [address] Norma Gandara P.A.-C. [address] [place] [address] Colic Biliary (Primary Dx) Social [...] Answer Date Recorded PHQ-2 Score 0 06/22/2023 [facility] of Occupat ional Health - [...] AM CDT Legal Sex Female 4:19 AM STENCIL MAKER Gender Identity Female 12/08/2018 2:54 PM CDT [...] be sent through Care Everywhere. * Gallstones (Indonesian) documented in this encounter Progress Notes * Norma Gandara, PEvetteA.-C. - 12/13/2023 8:00 AM CDT SUBJECTIVE CHIEF [...] [place] [facility] the [facility], she had [...] CDT Appointment Department of Radiation Oncology in [place], [place] [address] [place] [address] Abisai Ortega M.D. [address] [place] [address] Scheduled Referrals Name Type Priority Associated Diagnoses [...] documented as of this encounter Care Teams Shopper Insights Manager Relationship Specialty Start Date End Date Jessica Schulz APRN, C.N.P., D.N.P. [address] [place] [phone] PCP - General 12/12/20 12/13/23 documented as of this encounter
--- OUTSIDE RECORDS SUMMARY | 2024-03-20 07:04 | XMS_ITS | Clinical Summary ---
Author Organization [facility] Address [address] [place] [address] Care Team Providers Care Gear And Spline Grinder Name Role Phone Dianelys Solorio M.D. Primary Care Provider Source Comments Patient records contain information from all sites at [facility]. For routine questions regarding patient records, call [phone] during business hours, M-F 8:00 AM - 5:00 PM Central Time. Record requests for emergency care only can be directed to [phone] at any time.[facility] Allergies No known active allergies Medications acetaminophen [...] CDT Internal E-Consult Division of Gastroenterology in [place], [place] [address] [place] [phone] Francesca Baxter M.D. Talwalkar, Jayant A, M.D., M.P.H. Colic Biliary 01/26/2024 1:55 PM CDT Ancillary Procedure Department of Radiology in [place], [place] [address] [place] [address] Sarai Yoon P.A.-C., M.S. Malignant Neoplasm Of Lung Adenocarcinoma Right (HCC); Secondary Malignant Neoplasm Brain (HCC) 01/26/2024 1:04 PM CDT - 01/27/2024 5:37 PM CDT Hospital Encounter Department of Radiation Oncology in [place], [place] [address] [place] [phone] Abisai Ortega M.D. Malignant Neoplasm Of Lung Adenocarcinoma Right (HCC) (Primary Dx); Secondary Malignant Neoplasm Brain (HCC); Secondary Malignant Neoplasm Bone (HCC) 01/26/2024 Clinical Communication Department of General Surgery in [place], [place] [address] [place] [phone] Francesca Baxter M.D. Results 01/10/2024 8:30 AM CDT Office Visit Department of Family Medicine, [facility], in [place], [place] [address] [place] [phone] Norma Gandara P.A.-C. Preoperative Exam (Primary Dx); Pain Epigastric 12/21/2023 8:30 AM CDT Comprehensive Visit Department of General Surgery in [place], [place] [address] [place] [phone] Francesca Baxter M.D. Colic Biliary 12/20/2023 Clinical Communication Department of General Surgery in [place], [place] [address] [place] [phone] Francesca Baxter M.D. 12/20/2023 Orders Only Department of General Surgery in [place], [place] [address] [place] [phone] Francesca Baxter M.D. Colic Biliary (Primary Dx); Malignant Neoplasm Of Lung Adenocarcinoma Right (HCC) from Last 3 Months Immunizations Name Administration Dates Next Due Influenza, Unspecified 03/30/2013 SARS-COV-2 (COVID-19) - MODERNA(Discontinued) ,01/17/2021 Tdap 03/30/2013 Family History Medical History Relation Name Comments Lung cancer Aunt Coronary artery disease Father Christiano Curry Lung cancer Father Christiano Curry Lung cancer Maternal Grandfather Milton Nieves Cancer Maternal Grandmother Hyacinth Nieves Coronary artery disease Maternal Grandmother Ada Colee Diabetes Maternal Grandmother Ada Colee Lung cancer Mother's Brother Amol Kendra Psychiatric Mother's Sister Jo Ann Beebe Lung cancer Paternal Grandfather Lung cancer Paternal Grandmother Jasmin Curry Lung cancer Uncle Relation Name Status Comments Aunt Father Christiano Curry Maternal Grandfather Milton Nieves Maternal Grandmother Hyacinth Mosleye Mother's Brother Amol Jordantrace Mother's Sister Jo Ann Beebe Paternal Grandfather Paternal Grandmother Jasmin Curry Uncle Social History Tobacco Use Types Packs/Day Years Used Date Smoking Tobacco: Former Cigarettes 1 2014 Smokeless Tobacco: Never Alcohol Use Standard Drinks/Week Comments Yes 1 (1 standard drink = 0.6 oz pure alcohol) A glass a couple times a month sometimes [employer] Utilities Answer Date Recorded In the past 12 months has [facility] Fact[facility], gas, oil, or water [employer] threatened to shut off services in your [...] and Family Once a week 12/08/2018 Attends Confucianism Services 1 to 4 times per year [...] Answer Date Recorded PHQ-2 Score 0 06/22/2023 [facility] Questionnaire Answer Date [...] living situation today? I have a [facility] place to live 01/23/2024 Education Answer Date Recorded What is the highest level of school you have completed or the highest degree you have received? 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 [address] [place] [phone] Health Maintenance Due Date Last Done Comments [...] this topic Medical Devices Implanted Type Area Agency Development Manager Device Identifier Shelf Expiration Date Model / [...] LIPID PANEL, S Routine 04/04/2013 7:24 AM ENTERPRISE INFRASTRUCTURE ARCHITECT BI BREAST SCREENING BILATERAL Routine 03/30/2013 4:07 PM ENTERPRISE INFRASTRUCTURE ARCHITECT PATHOLOGY MERCANTILE AGENT CYTOLOGY Routine 03/30/2013 12:00 AM ENTERPRISE INFRASTRUCTURE ARCHITECT from Last 3 Months or Most Recently [...] enhancement in the right superior frontal gyrus, [id number] image 21. This finding has not substantially [...] NON RAD IMAGING PROCE DURES Final Result IIAZ NA * MR head/brain wo/w con-Outside MR [...] MRI PROCEDURES Final Result Performing Organization Address [facility] de Phone Number [facility] NA * (ABNORMAL) Glucose, Fasting (09/07/2014 10:25 AM CDT) Pathologist [facility] [place] Last Intake [address] [facility] Glucose, P 101(H) 70 - 100 MG/DL [facility] [place] 09/07/2014 10:2 5 AM CDT 09/07/2014 10:25 AM CDT Lonnie Moreland P.A.-C. LAB BLOOD NON ADD-ON F inal Result Performing Organization Address [facility] de Phone Number [facility] [place] [address] * (ABNORMAL) Lipid Panel (04/04/2013 7:24 AM ENTERPRISE INFRASTRUCTURE ARCHITECT) Calculated LDL 141(H) 0 - 100 MGDL POWERCHART Total Cholesterol/HDL Ratio 5.23(H) 2.20 - 4.40 POWERCHART Cholesterol, Total 204(H) <=200 MGDL POWERCHART HX HDL 39(L) 40 - 60 MGDL POWERCHART Triglycerides 119 <=150 MGDL POWERCHART HXLDL/HDL 4 POWERCHART Blood 04/04/2013 7:24 AM ENTERPRISE INFRASTRUCTURE ARCHITECT Rachel Foreman M.D. LAB BLOOD ADD-ON Final Resu lt Performing Organization Address [facility]/ZIP Co de Phone Number POWERCHART * BI Breast Screening Bilateral (03/30/2013 4:07 PM ENTERPRISE INFRASTRUCTURE ARCHITECT) Anatomical Region Laterality Modality Breast Bilateral Mammography 03/30/2013 4:07 PM ENTERPRISE INFRASTRUCTURE ARCHITECT Impressions 03/31/2013 10:19 AM ENTERPRISE INFRASTRUCTURE ARCHITECT Recommendations: ??I recommend a follow-up mammogram in [...] digital mammogram images. Narrative 03/31/2013 10:19 AM ENTERPRISE INFRASTRUCTURE ARCHITECT EXAM: MA Mammo Screening w/ CADD INDICATION: [...] on the digital mammogram images. us Radha Bosch(R), R.TEvette(R)(M) IMG BI PROCED URES Edited Result - Final * Pathology MERCANTILE AGENT Cytology (03/30/2013 12:00 AM ENTERPRISE INFRASTRUCTURE ARCHITECT) 03/30/2013 Narrative [facility] - 04/04/2013 1:28 PM ENTERPRISE INFRASTRUCTURE ARCHITECT [facility] [place] [address] [facility] [address] [place], [place] ??[phone] Patient Name: DEBORA RUBY Collected: 03/30/2013 Address: City/State[place]Zip: [address], [place] ??[id number] Received: Reported: 03/31/2013 04/04/2013 Soc. Sec. #: ?/Age/Sex 1970 (Age: 42) ??F Physician(s): [place] FOREMAN MD Copy To: ? [facility] ??[phone] [facility], ??[place] ??[address] CYTOPATHOLOGY MERCANTILE AGENT REPORT FINAL CYTOLOGIC DIAGNOSIS Pap Smear, Vagina [...] LAB PAP COPATH ORDERABLES F inal Result [facility] LAB from Last 3 Months or Most Recently Relevant to Health Maintenance Additional Health Concerns Infection Onset Date Last Indicated Protective Environment 01/07/2023 3 Insurance [facility] Care Teams Gear And Spline Grinder Relationship Specialty Start Date End Date Dianelys Solorio M.D. [address] [place] [address] [place] [phone] PCP - General Family Medicine 12/14/23
--- OUTSIDE RECORDS SUMMARY | 2024-03-20 07:04 | XMS_ITS | Encounter Summary ---
Author Organization [facility] Address [address] [place] [address] Care Team Providers Care Hazardous Material Specialist Name Role Phone Dianelys Solorio M.D. Primary Care Provider Reason for Referral * Outpatient (Routine) - Closed Specialty Diagnoses / Procedures Referred By Contact Referred To Contact Gastroenterology and Hepatology Diagnoses Colic Biliary Procedures Gastroenterology and Hepatology - Hepatobiliary eConsult Francesca Baxter M.D. [address] [place] [address] Phone: tel:[phone] fax:[phone] [facility] Referral ID Status Reason Start Date Expiration Date Visits Re quested Visits Authorized [id number] Closed 12/21/2023 12/20/2024 1 1 Reason for [...] Colic Biliary Norma Gandara P.A.-C. [address] [place] [address] Phone: tel: fax: [facility] Referral ID Status Reason Start Date Expiration Date V isits Requested Visits Authorized [id number] Closed Specialty Services Required 12/13/2023 06/13/2025 1 1 Encounter Details Date Type Department Care Team (Late st Contact Info) Description 12/21/2023 8:30 AM CDT Comprehensive Visit Department of General Surgery in [place], [place] [address] [place] [phone] Francesca Baxter M.D. [address] [place] [address] Colic Biliary Social History Tobacco [...] and Family Once a week 12/08/2018 Attends [employer] Services 1 to 4 times per year [...] Answer Date Recorded PHQ-2 Score 0 06/22/2023 [facility] - Occupational Stress Questionnaire Answer Date [...] your living situation today? I have a [facility] place to live 01/08/2023 Education Answer Date Recorded What is the highest level of school you have completed or the highest degree you have received? Associate degree: occupational, technical, or vocational program 12/08/2018 Comments No Sex and Gender Information Value Date Recorded Sex Assigned at Female 01/08/2023 5:32 AM CDT Legal Sex Female 4:19 AM RN MANAGER Gender Identity Female 12/08/2018 2:54 PM CDT [...] and discussed with Dr. Nikhil Jensen D.O. Cosigned by Francesca Baxter M.D. at 12/21/2023 10:49 AM CDT Associated attestation - Francesca Baxter M.D. - [...] CDT Appointment Department of Radiation Oncology in [place], [place] [address] [place] [address] Abisai Ortega M.D. [address] [place] [address] documented as of this encounter Visit Diagnoses Diagnosis Colic Biliary documented in this encounter Additional Health Concerns Infection Onset Date Last Indicated Resolved Time Protective Environment 01/07/2023 01/07/2023 Assessment Noted Time PHQ-9 Depression Total Score: 13 01/17/2 019 8:17 AM CDT documented as of this encounter Care Teams Hazardous Material Specialist Relationship Specialty Start Date End Date Dianelys Solorio M.D. [address] [place] [phone] PCP - General Family Medicine 12/14/23 documented as of this encounter
--- OUTSIDE RECORDS SUMMARY | 2024-03-20 07:04 | XMS_ITS | Encounter Summary ---
Author Organization [facility] Address [address] [place] [address] Care Team Providers Care Inspector Hairspring Truing Name Role Phone Dianelys Solorio M.D. Primary Care Provider Encounter Details Date Type Department Care Team (Late st Contact Info) Description 12/20/2023 Clinical Communication Department of General Surgery in [place], [place] [address] [place] [phone] Francesca Baxter M.D. 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 [address] [place] [address] documented as of this encounter Visit Diagnoses Not on filedocumented in this encounter Additional Health Concerns Infection Onset Date Last Indicated Resolved Time Protective Environment 01/07/2023 01/07/2023 Assessment Noted Time PHQ-9 Depression Total Score: 13 019 8:17 AM CDT documented as of this encounter Care Teams Inspector Hairspring Truing Relationship Specialty Start Date End Date Dianelys Solorio M.D. [address] [place] [address] [place] [address] PCP - General Family Medicine 12/14/23 documented as of this encounter
--- OUTSIDE RECORDS SUMMARY | 2024-03-20 07:04 | XMS_ITS | Encounter Summary ---
Author Organization [facility] Address [address] [place] [address] Care Team Providers Care Patient Financial Services Manager Name Role Phone Dianelys Solorio M.D. Primary Care Provider Reason for Visit * Reason Onset Date Comments Results 01/26/2024 Encounter Details Date Type Department Care Team (Late st Contact Info) Description 01/26/2024 Clinical Communication Department of General Surgery in [place], [place] [address] [phone] Francesca Baxter M.D. [address] [phone] Results Social History Tobacco Use Types Packs/Day Years Used Date Smoking Tobacco: Former Cigarettes - 2014 Smokeless Tobacco: Never Alcohol Use Standard Drinks/Week Comments Yes 1 (1 standard drink = 0.6 oz pure alcohol) A glass a couple times a month sometimes [facility] Utilities Answer Date Recorded In the past 12 months has [facility] electric, gas, oil, or water company [...] and Family Once a week 12/08/2018 Attends Bahai Services 1 to 4 times per year [...] Answer Date Recorded PHQ-2 Score 0 06/22/2023 [facility] - [...] your living situation today? I have a [facility] place to live 01/23/2024 Education Answer Date Recorded What is the highest level of school you have completed or the highest degree you have received? 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 [address] [place] [address] documented as of this encounter Visit Diagnoses Not on filedocumented in this encounter Additional Health Concerns Infection Onset Date Last Indicated Resolved Time Protective Environment 01/07/2023 01/07/2023 Assessment Noted Time PHQ-9 Depression Total Score: 13 01/17/ 019 8:17 AM CDT documented as of this encounter Care Teams Patient Financial Services Manager Relationship Specialty Start Date End Date Dianelys Solorio M.D. [address] [place] [phone] PCP - General Family Medicine 12/14/23 documented as of this encounter
--- OUTSIDE RECORDS SUMMARY | 2024-03-20 07:04 | XMS_ITS | Clinical Summary ---
Author Organization [facility] Address [place], [place] [address] Care Team Providers Care Motion Picture Actor Name Role Phone Norma Gandara PA-C Primary Care Provider [phone] Allergies No known active allergies Medications Medication [...] CDT - 01/21/2024 9:23 AM CDT Surgery [address] [address] Francesca Baxter MD COLONOSCOPY WITH BIOPSY 01/21/2024 8:10 AM CDT Anesthesia Event [address] [address] David Chandler, 01/21/2024 7:11 AM CDT - 01/21/2024 9:35 AM CDT Hospital Encounter [address] [address] Francesca Baxter MD Discharge Disposition: Home Self [...] CDT SAME Case Notes Miralax/Dulcolax Special Needs [id number] COLONOSCOPY WITH BIOPSY 01/21/20 8:10 AM CDT SAME Case Notes Miralax/Dulcolax Special Needs [id number] ENDOSCOPY 01/21/2024 8:08 AM CDT from Last 3 Months Results * PATH TISSUE EXAM (01/21/2024 8:17 AM CDT) Case Report Pathology Report ?Case: [id number] ? Authorizing Provider: ??Francesca Baxter ?Collected: ? 01/21/2024 0817 ? MD Amie ? Ordering Location: ? [facility] ?Received: ?01/21/2024 1213 ? Pathologist: ? Hector Cox ? IV, MD ? Specimens: ?? A) - Duodenum Biopsy ? B) - Gastric Biopsy, gasrtic antrum for H. plyori ? C) - Gastric Biopsy, gasrtic fundus ? D) - Ileum Biopsy ? 01/25/2024 2:36 PM CDT [facility] Final Diagnosis A) DUODENUM, [...] and chronic ileitis 01/25/2024 2:36 PM CDT [facility] Comment B) The likely etiology is an ongoing non-inflammatory type mucosal injury due to a chemical type of injury; this may be due to ingestion of non-steroidal anti-inflammator y drugs, aspirin (via prostaglandin-me diated injury), excess alcohol, corticosteroids, or bile/alkaline reflux, the latter usually in the setting of a gastroenteric anastomosis. 01/25/2024 2:36 PM T [facility] Clinical Information Ms. Valdes is a [...] distal ileum. Biopsied. 01/25/2024 2:36 PM T [facility] Gross Description A) Received in [...] 01/22/2024 9:47 AM 01/25/2024 2:36 PM T [facility] Microscopic Description The final diagnosis is based on microscopic examination of appropriate sections of all specimens. 01/25/2024 2:36 PM CDT [facility] Additional Information Interpreted at [facility] - [address] [facility] [address], [place] [address] 01/25/2024 2:36 PM CDT [facility] Biopsy (Duodenum Biopsy) 01/21/2024 8:17 AM CDT 01/21/2024 12:13 PM CDT Biopsy specimen (specimen) GASTRIC BIOPSY SPECIMEN / Unknown 01/21/2024 8:20 AM CDT 01/21/2024 12:13 PM CDT Biopsy specimen (specimen) GASTRIC BIOPSY SPECIMEN / Unknown 01/21/2024 8:23 AM CDT 01/21/2024 12:13 PM CDT Biopsy specimen (specimen) (Ileum Biopsy) 01/21/2024 8:48 AM CDT 01/21/2024 12:13 PM CDT Francesca Stern MD PATHOLOGY/C YTOLOGY [facility] [address] [place] [address], * COLONOSCOPY (01/21/2024 8:10 AM CDT) 01/21/2024 [...] provided and informed consent obtained. The endoscope [id number] was passed through the anus and advanced to the terminal ileum. The colonoscopy was performed without difficulty. The patient tolerated the procedure well. The quality of the bowel preparation was evaluated using the BBPS ([place] Bowel Preparation Scale) with scores of: Right [...] and informed consent obtained. The endoscope [id number] was introduced through the mouth, and advanced [...] Code Status Discussion: Not Discussed Care Teams Motion Picture Actor Relationship Specialty Start Date End Date Norma Gandara PA-C [address] [place] [address] Ave [address]ILL[address] CARRERO [address] PCP - General Physician Log Roller 01/10/24
--- OUTSIDE RECORDS SUMMARY | 2024-03-20 07:04 | XMS_ITS ---
Author Organization [facility] Address [address] [place] [address] Care Team Providers Care Funder Name Role Phone Unavailable Unavailable Unavailable Surgery Details Not on file Complications Check Surgery Details section. Procedure Estimated Blood Loss Check Surgery Details section. Procedure Findings Check Surgery Details section. Procedure Specimens Taken Check Surgery Details section.
--- OUTSIDE RECORDS SUMMARY | 2024-03-20 07:04 | XMS_ITS ---
Author Organization [facility] Address [address] [place] [address] Care Team Providers Care Automatic Log Cut Off Sawyer Name Role Phone Dianelys Solorio M.D. Primary [...] Treated Prescribed Fraction Dose Prescribed Total Dose [id number] 02/05/2023 4 3 of 3 900 cGy 2,700 cGy F1 L3-5 Spine 02/08/2019 6 5 of 5 400 cGy 2,000 cGy Reference Point Last Treated On Elapsed Days Session Dose Total Dose [id number] 02/05/2023 4 900 cGy 2,700 cGy [id number] 02/08/2019 6 400 cGy 2,000 cGy
--- NOTE | 2024-03-20 07:15 | CRLHL7_ITS ---
For Patients: As a result of the Century Cures Act, medical imaging exams and procedure reports are released immediately into your electronic medical record. You may view this report before your referring provider. If you have questions, please contact your health care provider. INDICATION: Lung cancer, three-month follow-up. TECHNIQUE: Multisequence multiplanar MRI of the brain prior to and following administration of 20 cc Dotarem gadolinium-based intravenous contrast. COMPARISON: MRI brain dated 01/19/2024. FINDINGS: Multiple previously referenced intracranial metastases as follows: Slight increase in size of a nodular enhancing focus in the right superior frontal lobe now measuring 4 mm (series 1025, image 26). Slight interval increase in size of a nodular enhancing lesion within the right middle frontal lobe more anteriorly now measuring 7 mm (series 1025, image 57). Similar 3 mm focus of enhancement at the posterior aspect of the right caudate head (series 1025, image 77). Similar 4 mm enhancing focus within the right inferior frontal lobe (series 1025, image 96). No new suspicious enhancing lesion. No evidence of acute ischemia. No focus of abnormal susceptibility artifact. The ventricles are unchanged in size. No discrete calvarial lesion is identified. The orbits are unremarkable. There is similar mild scattered paranasal sinus mucosal thickening. IMPRESSION: 1. Slight increase in size of the previously referenced enhancing metastases within the right superior (series 1025, image 26) and middle (series 1025, image 57) frontal lobe. 2. Unchanged additional previously referenced metastases within the right caudate head and right inferior frontal lobe. 3. No new suspicious enhancing lesion. 4. No acute intracranial abnormality, intracranial hemorrhage, or significant mass effect. Dictated by Jose Ramon Oreilly MD @ 03/20/2024 3:56:45 PM (Electronically Signed)
== END 2024-03-20 07:03 | disposition home or self-care (01) ==
PROVIDERS: PCP Physician Assistant; Visit Provider Physician Assistant
DX: C34.91 Malignant neoplasm of unspecified part of right bronchus or lung (principal); C79.31 Secondary malignant neoplasm of brain
CPT/HCPCS: 70553; A9575

== ENCOUNTER 2024-06-19 08:59 | Outpatient (CLI) | payer BC, SELFPAY ==
--- NOTE | 2024-06-19 09:30 | CRLHL7_ITS ---
For Patients: As a result of the Century Cures Act, medical imaging exams and procedure reports are released immediately into your electronic medical record. You may view this report before your referring provider. If you have questions, please contact your health care provider. Indication: LUNG METS Technique: CT Chest/Abd/Pelvis 107CC ISOVUE 370 Please note that all CT scans at this facility use dose modulation, iterative reconstruction, and/or weight-based dosing when appropriate to reduce radiation dose to as low as reasonably achievable. Comparison: 02/25/2024 Findings: In the chest, postoperative changes of right lower lobectomy are again noted. No infiltrate or edema. No effusion or pneumothorax. No adenopathy. No pulmonary nodule. In the abdomen, intrahepatic hemangiomas are again noted. Gallbladder is contracted about multiple gallstones. Spleen unremarkable. No adrenal nodule. Bilateral renal parapelvic cysts. No hydronephrosis. Atherosclerotic changes. Stable sub cm upper retroperitoneal lymph nodes. Mild pancreatic atrophy. No suspicious pancreatic lesion. In the pelvis, the bladder is normal. IUD is present centrally within the uterus. No adnexal mass. No bowel obstruction, free air or free fluid. No pelvic or inguinal adenopathy. Chronic changes to L4. Impression: No significant change since the prior study. Stable appearance of L4. Postop changes right lower lobectomy. No suspicious pulmonary nodule. Stable upper retroperitoneal sub cm lymph nodes. Stable intrahepatic hemangiomas. Please note that all CT scans at this facility use dose modulation, iterative reconstruction, and/or weight-based dosing when appropriate to reduce radiation dose to as low as reasonably achievable. Dictated by Sunny Louis MD @ 06/19/2024 12:13:36 PM (Electronically Signed)
--- NOTE | 2024-06-19 10:15 | CRLHL7_ITS ---
For Patients: As a result of the Century Cures Act, medical imaging exams and procedure reports are released immediately into your electronic medical record. You may view this report before your referring provider. If you have questions, please contact your health care provider. INDICATION: Lung cancer. Follow-up intracranial metastatic disease. TECHNIQUE: Brain MRI with and without contrast. 20 cc gadolinium based contrast administered. COMPARISON: Brain MRI from 03/20/2024. FINDINGS: Enhancing lesions indexed upon series 1001 as follows: 5 millimeter lesion right superior frontal gyrus, image 24. Stable. 9 millimeter ring-enhancing lesion within the right middle frontal gyrus, image 50. Increased in size. Surrounding vasogenic edema slightly increased. 3 millimeter lesion right anterior basal frontal lobe, image 88. Stable. 2 millimeter lesion right caudate head, image 73. Stable. No new enhancing intracranial lesions. No evidence of acute ischemia. No evidence of acute or chronic intracranial blood products. Few small FLAIR hyperintense foci scattered within the supratentorial white matter, typical for chronic microvascular ischemic change. No hydrocephalus or extra-axial collections. The pituitary gland, parasellar structures and optic chiasm are normal. Posterior fossa is normal. All the major intracranial vascular structures demonstrate normal flow-related signal. The orbital contents are normal. No calvarial or skull base marrow signal abnormality. No obstructive sinus disease. No extracranial soft tissue findings. IMPRESSION: 1. Ring-enhancing metastasis within the right middle frontal gyrus has slightly increased in size. Surrounding vasogenic edema has slightly increased. Remaining metastatic lesions are stable. No new sites of intracranial metastatic disease. 2. No acute ischemia or other acute intracranial pathology. Dictated by León Medina MD @ 06/19/2024 4:13:43 PM (Electronically Signed)
== END 2024-06-19 09:00 | disposition home or self-care (01) ==
LOC: CT 08:59
PROVIDERS: PCP Physician Assistant; Visit Provider Internal Medicine Hematology & Oncology
DX: C34.91 Malignant neoplasm of unspecified part of right bronchus or lung (principal); Z90.2 Acquired absence of lung [part of]
CPT/HCPCS: 70553; 71260; 74177; A9575; Q9967

== ENCOUNTER 2024-09-11 08:27 | Outpatient (CLI) | payer BC, SELFPAY ==
--- NOTE | 2024-09-11 09:00 | CRLHL7_ITS ---
For Patients: As a result of the Century Cures Act, medical imaging exams and procedure reports are released immediately into your electronic medical record. You may view this report before your referring provider. If you have questions, please contact your health care provider. Indication: Follow-up lung cancer Technique: CT Chest/Abd/Pelvis 108CC ISOVUE 370 INTRAVENOUS CONTRAST AND WATER PREP ORAL Please note that all CT scans at this facility use dose modulation, iterative reconstruction, and/or weight-based dosing when appropriate to reduce radiation dose to as low as reasonably achievable. Comparison: 06/19/2024 Findings: In the chest, postop changes of right lobectomy again noted. No suspicious pulmonary nodule. No adenopathy. Visualized thyroid unremarkable. No destructive osseous lesion. Postop changes to the right-sided ribcage. No infiltrate, edema, effusion or pneumothorax. In the abdomen, stable hemangiomas within the liver measuring 7.5 cm and 5.0 cm. No suspicious hepatic lesion. Gallbladder contracted about multiple gallstones. No biliary obstruction. No adenopathy. Pancreas and spleen normal. Normal adrenal glands. Left extrarenal pelvis unchanged. No solid renal mass or hydronephrosis. Vascular calcifications. In the pelvis, IUD is present centrally within the uterus. Normal bladder. Ovaries unremarkable. No bowel obstruction, free air, free fluid or abscess. No pelvic or inguinal adenopathy. Chronic changes to the L4 vertebral body. Impression: Stable exam. No significant change. Please note that all CT scans at this facility use dose modulation, iterative reconstruction, and/or weight-based dosing when appropriate to reduce radiation dose to as low as reasonably achievable. Dictated by Sunny Louis MD @ 09/11/2024 11:29:36 AM (Electronically Signed)
== END 2024-09-11 08:28 | disposition home or self-care (01) ==
PROVIDERS: PCP Physician Assistant; Visit Provider Physician Assistant
DX: R10.9 Unspecified abdominal pain (principal); C34.90 Malignant neoplasm of unspecified part of unspecified bronchus or lung
CPT/HCPCS: 71260; 74177; Q9967

== ENCOUNTER 2024-09-11 08:45 | Outpatient (CLI) | payer BC, SELFPAY ==
--- NOTE | 2024-09-11 09:15 | CRLHL7_ITS ---
For Patients: As a result of the Century Cures Act, medical imaging exams and procedure reports are released immediately into your electronic medical record. You may view this report before your referring provider. If you have questions, please contact your health care provider. INDICATION: Lung cancer. Staging. COMPARISON: 06/19/2024. TECHNIQUE: Multiplanar T1, T2, FLAIR and diffusion-weighted imaging. Post gadolinium T1 weighted sequences. FINDINGS: Compared to previous stem, again seen are multiple enhancing lesions consistent with metastases. Specifically: Interval decrease in size of a metastatic lesion of the right superior frontal gyrus at the vertex now measuring 3 mm in diameter (series 1026, image 26). Stable 9 mm ring-enhancing lesion of the right middle frontal gyrus (series 1026, image 54). Stable surrounding vasogenic edema. Stable tiny 2 mm enhancing lesion of the right caudate (series 1026, image 75). Stable 3 mm metastatic lesion of the right frontal operculum (series 32268, image 90). Stable mild surrounding vasogenic edema. No new abnormal enhancement or enhancing lesions elsewhere. Normal brain parenchymal morphology. Scattered foci of T2/FLAIR signal hyperintensity within the white matter both supra hemispheres consistent with chronic deep white matter small vessel ischemic changes or sequela migraine headache. No intracranial hemorrhage. No abnormal ventricular dilatation. Intracranial vascular flow voids are preserved. No mass effect or midline shift. No restricted diffusion to suggest acute ischemia. No susceptibility artifact of remote hemorrhage. Bilateral orbits are unremarkable. Normal appearing sella. Visualized mastoid air cells are unremarkable. Fluid within the left maxillary sinus. Remaining visualized paranasal sinuses are unremarkable. IMPRESSION: 1. Stable to slight decrease in size of metastatic lesions. 2. No new abnormal enhancement or enhancing lesions elsewhere. 3. No acute intracranial abnormality. 4. Normal brain parenchymal morphology Dictated by Donald Oreilly MD @ 09/11/2024 11:30:42 AM (Electronically Signed)
== END 2024-09-11 08:46 | disposition home or self-care (01) ==
LOC: MRI 08:45
PROVIDERS: PCP Physician Assistant; Visit Provider Internal Medicine
DX: C34.90 Malignant neoplasm of unspecified part of unspecified bronchus or lung (principal); C79.31 Secondary malignant neoplasm of brain
CPT/HCPCS: 70553; A9575

== ENCOUNTER 2024-10-04 14:00 | Outpatient (RCR) | payer BC, SELFPAY ==
[2024-06-19 09:27] LABS: Hematocrit 40.3 % (33.0-51.0); Hemoglobin* 13.6 gm/dL (12.0-16.0); Immature Granulocytes Abs Auto 0.01 K/uL (0.00-0.30); Immature Granulocytes Pct Auto 0.2 %; Lymphocytes Absolute Auto 1.51 K/uL (0.90-2.90); Mean Corpuscular HGB Conc 34 gm/dL (32-36); Mean Corpuscular Hemoglobin 31 pg (26-34); Mean Corpuscular Volume 93 fL (80-100); RDW Coefficient of Variation % 12.0 % (11.5-15.5); Red Blood Count 4.33 m/uL (4.00-5.20); White Blood Count* 6.51 K/uL (4.50-11.00)
[2024-06-19 09:30] LABS: Slide Review Reflex No
[2024-06-19 09:35] LABS: Albumin* 4.4 g/dL (3.3-5.0); Chloride* 102 mmol/L (96-114); Sodium* 139 mmol/L (135-149)
[2024-06-19 09:36] LABS: Potassium* 3.9 mmol/L (3.6-5.1)
[2024-06-19 09:38] LABS: Alanine Aminotransferase* 17 U/L (4-35); Alkaline Phosphatase* 145 U/L (40-150); Anion Gap 8 mEq/L (7-15); Aspartate Amino Transferase* 21 U/L (12-35); Bilirubin Total* 2.0 mg/dL (0.1-1.5); Blood Urea Nitrogen* 20 mg/dL (7-30); Carbon Dioxide* 29 mmol/L (20-32); Creatinine* 0.7 mg/dL (0.5-1.5); Estimated Glomerular Filt Rate 104 ml/min; Glucose* 107 mg/dL (60-115); Total Protein* 7.5 g/dL (6.0-8.3)
[2024-06-19 09:39] LABS: Calcium* 9.3 mg/dL (8.4-10.6)
[2024-07-31 14:38] LABS: White Blood Count* 7.69 K/uL (4.50-11.00)
[2024-07-31 14:39] LABS: Hematocrit 38.0 % (33.0-51.0); Hemoglobin* 12.9 gm/dL (12.0-16.0); Immature Granulocytes Abs Auto 0.01 K/uL (0.00-0.30); Immature Granulocytes Pct Auto 0.1 %; Lymphocytes Absolute Auto 1.76 K/uL (0.90-2.90); Mean Corpuscular HGB Conc 34 gm/dL (32-36); Mean Corpuscular Hemoglobin 32 pg (26-34); Mean Corpuscular Volume 94 fL (80-100); RDW Coefficient of Variation % 12.6 % (11.5-15.5); Red Blood Count 4.06 m/uL (4.00-5.20)
[2024-07-31 14:40] LABS: Slide Review Reflex No
[2024-07-31 14:52] LABS: Albumin* 4.3 g/dL (3.3-5.0)
[2024-07-31 14:53] LABS: Chloride* 101 mmol/L (96-114); Potassium* 3.6 mmol/L (3.6-5.1); Sodium* 137 mmol/L (135-149)
[2024-07-31 14:55] LABS: Alkaline Phosphatase* 134 U/L (40-150); Anion Gap 9 mEq/L (7-15); Aspartate Amino Transferase* 20 U/L (12-35); Bilirubin Total* 1.5 mg/dL (0.1-1.5); Blood Urea Nitrogen* 17 mg/dL (7-30); Carbon Dioxide* 27 mmol/L (20-32); Creatinine* 0.7 mg/dL (0.5-1.5); Est. Creatinine Clearance* 84.60; Estimated Glomerular Filt Rate 104 ml/min; Total Protein* 7.5 g/dL (6.0-8.3)
[2024-07-31 14:56] LABS: Alanine Aminotransferase* 17 U/L (4-35); Calcium* 8.8 mg/dL (8.4-10.6); Creatine Kinase* 42 U/L (41-117); Glucose* 141 mg/dL (60-115)
--- NOTE | 2024-08-30 15:44 | ONC.NURNOTE ---
Addendum entered by Maile Park RN 09/06/24 12:48: PA approved with [employer] $100. Confirmed with [facility] Status:Approved Submission Date:08/30/2024 03:43 PM Request Type:Non-DSP Prior Authorization [facility] Member Name:SONNY RUBY Transaction ID:[id number] Original Note: PA for Alectinib 600mg ([id number]) BID #[id number] Submitted online at [employer] per recommendation of CoverMyMeds. CoverMyMeds Topete: [id number] [facility] phone # [phone] Reference ID: [id number] Transaction ID: [id number] Files attached included recent provider note and labs, original path and surgical path from 2014, FNA soft tissue from arm, and original cell testing for EGFR, [employer], etc.
[2024-10-04 14:49] LABS: Hematocrit 36.1 % (33.0-51.0); Hemoglobin* 12.5 gm/dL (12.0-16.0); Immature Granulocytes Abs Auto 0.02 K/uL (0.00-0.30); Immature Granulocytes Pct Auto 0.3 %; Lymphocytes Absolute Auto 1.92 K/uL (0.90-2.90); Mean Corpuscular HGB Conc 35 gm/dL (32-36); Mean Corpuscular Hemoglobin 32 pg (26-34); Mean Corpuscular Volume 91 fL (80-100); RDW Coefficient of Variation % 12.5 % (11.5-15.5); Red Blood Count 3.95 m/uL (4.00-5.20); White Blood Count* 7.99 K/uL (4.50-11.00)
[2024-10-04 14:51] LABS: Slide Review Reflex No
[2024-10-04 15:17] LABS: Albumin* 4.2 g/dL (3.3-5.0); Chloride* 103 mmol/L (96-114); Potassium* 3.7 mmol/L (3.6-5.1); Sodium* 139 mmol/L (135-149)
[2024-10-04 15:20] LABS: Alanine Aminotransferase* 18 U/L (4-35); Alkaline Phosphatase* 132 U/L (40-150); Anion Gap 8 mEq/L (7-15); Aspartate Amino Transferase* 25 U/L (12-35); Bilirubin Total* 1.3 mg/dL (0.1-1.5); Blood Urea Nitrogen* 15 mg/dL (7-30); Carbon Dioxide* 28 mmol/L (20-32); Creatine Kinase* 42 U/L (41-117); Creatinine* 1.1 mg/dL (0.5-1.5); Est. Creatinine Clearance* 53.22; Estimated Glomerular Filt Rate 60 ml/min; Total Protein* 7.1 g/dL (6.0-8.3)
[2024-10-04 15:21] LABS: Calcium* 9.1 mg/dL (8.4-10.6); Glucose* 122 mg/dL (60-115)
== END 2024-12-16 23:59 | disposition home or self-care (01) ==
LOC: CCIC 14:00
PROVIDERS: PCP Physician Assistant; Referring Provider Physician Assistant; Visit Provider Internal Medicine Hematology & Oncology
DX: C34.91 Malignant neoplasm of unspecified part of right bronchus or lung (principal); C79.31 Secondary malignant neoplasm of brain; R10.9 Unspecified abdominal pain; Z87.891 Personal history of nicotine dependence
CPT/HCPCS: 36415; 80053; 82550; 85025; 99213; 99214; G0463

== ENCOUNTER 2025-01-01 12:57 | Outpatient (CLI) | payer BC, SELFPAY ==
--- NOTE | 2025-01-01 14:00 | CRLHL7_ITS ---
For Patients: As a result of the Century Cures Act, medical imaging exams and procedure reports are released immediately into your electronic medical record. You may view this report before your referring provider. If you have questions, please contact your health care provider. Indication: Secondary malignant neoplasm brain Technique: CT Chest/Abd/Pelvis w/ 109cc isovue-370 intravenous contrast Please note that all CT scans at this facility use dose modulation, iterative reconstruction, and/or weight-based dosing when appropriate to reduce radiation dose to as low as reasonably achievable. Comparison: 09/11/2024 Findings: In the chest, the visualized thyroid gland is normal. No mediastinal, hilar or axillary adenopathy. Postop changes of the right lung again noted. No infiltrate or edema. No effusion or pneumothorax. Stable small nodular density within the left upper lobe, unchanged, . No fracture. No intrinsic osseous lesion. In the abdomen, stable intrahepatic hemangiomas. Gallbladder is contracted about multiple gallstones, as before. Spleen is unchanged. Normal adrenal glands. Stable cyst left kidney. Small right renal parapelvic cysts. Pancreas normal. Atherosclerotic changes. No aneurysm. A few scattered subcentimeter retroperitoneal lymph nodes are again noted. In the pelvis, the bladder is unremarkable. IUD is present centrally within the uterus. Normal adnexa. Appendix unremarkable. No bowel obstruction or free air. No free fluid or abscess. No pelvic or inguinal adenopathy. Impression: Stable exam without significant change. Please note that all CT scans at this facility use dose modulation, iterative reconstruction, and/or weight-based dosing when appropriate to reduce radiation dose to as low as reasonably achievable. Dictated by Sunny Louis MD @ 01/02/2025 1:09:09 PM (Electronically Signed)
== END 2025-01-01 12:58 | disposition home or self-care (01) ==
LOC: CT 12:58
PROVIDERS: PCP Physician Assistant; Visit Provider Internal Medicine
DX: C34.90 Malignant neoplasm of unspecified part of unspecified bronchus or lung (principal); C79.31 Secondary malignant neoplasm of brain
CPT/HCPCS: 71260; 74177; Q9967

== ENCOUNTER 2025-01-01 12:59 | Outpatient (CLI) | payer BC, SELFPAY ==
--- NOTE | 2025-01-01 14:30 | CRLHL7_ITS ---
For Patients: As a result of the Century Cures Act, medical imaging exams and procedure reports are released immediately into your electronic medical record. You may view this report before your referring provider. If you have questions, please contact your health care provider. Indication: secondary malignant neoplasm brain Technique: Noncontrast sagittal T1, axial FLAIR, T2 turbo spine echo, and diffusion weighted images. Supplemental post contrast T1 weighted axial and coronal sequences are provided after administration of 20 cc gadolinium-based IV contrast. Comparison: MRI 09/11/2024, 06/19/2024, 03/12/2024, 01/19/2024 Findings: No mass effect or midline shift. No hydrocephalus. Multiple scattered foci of T2 prolongation in the subcortical and periventricular white matter nonspecific but typical for chronic small vessel ischemic changes. There is no evidence of diffusion restriction to suggest acute ischemia. Calvarial bone marrow signal is within normal limits. Scalp soft tissues are grossly normal. Decreased in size of peripheral enhancing lesion in the right frontal lobe that measures 9 x 7 x 8 mm previously 10 x 7 x 9 mm, with decreased adjacent vasogenic edema. Small focus of susceptibility likely represents hemosiderin deposition. Decrease in size of a 2 mm enhancing lesion in the right superior frontal gyrus previously 4 mm (series 1043, image 26). Stable 3 mm focus of enhancement in the right caudate nucleus (series 1043, image 73). Stable 4 mm focus of enhancement in the right inferolateral frontal lobe (series 1043, image 89). New triangular focus of 3 mm enhancement in the left frontal lobe orbital gyrus (series 1043, image 103). Impression: 1. New triangular 3 mm focus of enhancement in the left frontal lobe orbital gyrus is concerning for new metastasis. 2. Decreased size of metastases in the right frontal lobe. Stable size of metastases in the right caudate no and right inferolateral frontal lobe. Decreased vasogenic edema associated with the dominant lesion in the right frontal lobe. Dictated by Sunny Cazares MD @ 01/02/2025 8:55:39 AM (Electronically Signed)
== END 2025-01-01 13:00 | disposition home or self-care (01) ==
LOC: MRI 12:59
PROVIDERS: PCP Physician Assistant; Visit Provider Internal Medicine
DX: C79.31 Secondary malignant neoplasm of brain (principal)
CPT/HCPCS: 70553; A9575

== ENCOUNTER 2025-02-02 14:12 | Outpatient (CLI) | payer BC, SELFPAY ==
--- NOTE | 2025-02-02 14:30 | CRLHL7_ITS ---
For Patients: As a result of the Century Cures Act, medical imaging exams and procedure reports are released immediately into your electronic medical record. You may view this report before your referring provider. If you have questions, please contact your health care provider. INDICATION: Metastatic adenocarcinoma of the right lung. TECHNIQUE: Brain MRI with and without contrast. 20 cc of Dotarem gadolinium based intravenous contrast administered. COMPARISON: Brain MRI from 01/01/2025. FINDINGS: Enhancing intracranial lesions indexed upon series 1024 as follows: A 7 millimeter lesion within the right middle frontal gyrus. Image 56. Slightly decreased in size. Associated vasogenic edema is not significantly changed. A 3 millimeter lesion within the right posterior caudate head. Image 76. Stable in size. A 4 mm lesion within the right anterior lateral basal frontal lobe. Image 94. Stable in size. Right superior frontal gyrus lesion and left olfactory gyrus lesion have resolved. No new enhancing intracranial lesions. No new mass effect. No evidence of acute ischemia. Few small FLAIR hyperintense foci scattered within the supratentorial white matter, typical for chronic microvascular ischemic change. No hydrocephalus or extra-axial collections. The pituitary gland, parasellar structures and optic chiasm are normal. Posterior fossa is normal. All the major intracranial vascular structures demonstrate normal flow-related signal. The orbital contents are normal. No calvarial or skull base marrow signal abnormality. Mild mucosal thickening maxillary sinuses. No extracranial soft tissue findings. IMPRESSION: 1. No new sites of intracranial metastatic disease. Two previously seen metastatic lesions have resolved. The largest metastasis within the right middle frontal gyrus is slightly decreased in size. Remaining lesions are stable in size. Dictated by León Medina MD @ 02/05/2025 10:17:38 AM (Electronically Signed)
== END 2025-02-02 14:13 | disposition home or self-care (01) ==
LOC: MRI 14:13
PROVIDERS: PCP Physician Assistant; Visit Provider Physician Assistant
DX: C34.91 Malignant neoplasm of unspecified part of right bronchus or lung (principal)
CPT/HCPCS: 70553; A9575

== ENCOUNTER 2025-04-30 14:42 | Outpatient (CLI) | payer BC, SELFPAY ==
--- NOTE | 2025-04-30 15:00 | CRLHL7_ITS ---
For Patients: As a result of the Century Cures Act, medical imaging exams and procedure reports are released immediately into your electronic medical record. You may view this report before your referring provider. If you have questions, please contact your health care provider. INDICATION: Malignant lung carcinoma TECHNIQUE: CT chest, abdomen and pelvis acquired 108 cc Isovue 370 IV contrast. COMPARISON: CT chest abdomen and pelvis December 2024 FINDINGS: CHEST: Cardiovascular structures: Heart size is normal. Thoracic aorta and main pulmonary artery are normal in caliber. Mediastinum and gray: No mass or adenopathy. Lungs and pleura: Postoperative changes of right lung. No concerning nodule or mass. No effusion or pneumothorax. No infiltrate. Chest wall and axilla: No mass or adenopathy. Bones: No suspicious bone lesions. Scattered degenerative changes of the spine. ABDOMEN AND PELVIS: Liver: Liver is normal in size and attenuation with redemonstration of left hepatic lesions, previously characterized as hemangioma. Gallbladder and bile ducts: Cholelithiasis. Pancreas: Unremarkable. Spleen: Unremarkable. Adrenal glands: Unremarkable. Kidneys: Bilateral kidneys are normal in size and show symmetric contrast enhancement. Unchanged left parapelvic renal cyst. No hydronephrosis or nephrolithiasis. GI tract: No bowel obstruction. Normal appendix. Vascular structures: Abdominal aorta is of normal caliber with moderate atherosclerosis. Lymph nodes: No suspicious lymph nodes. Hernia Peritoneum/Retroperitoneum/Abdominal Wall: Small fat containing umbilical hernia. No free air or significant free fluid. Pelvic Organs: Uterus is normal in size and attenuation. Intrauterine device is in place. Bones and superficial soft tissues: No suspicious bone lesions. IMPRESSION: No acute abnormality in the chest, abdomen and pelvis or significant interval change. Chronic findings as above. Please note that all CT scans at this facility use dose modulation, iterative reconstruction, and/or weight-based dosing when appropriate to reduce radiation dose to as low as reasonably achievable. Dictated by Rahul Kelly MD @ 05/01/2025 10:46:37 AM (Electronically Signed)
== END 2025-04-30 14:43 | disposition home or self-care (01) ==
LOC: CT 14:43
PROVIDERS: PCP Physician Assistant; Visit Provider Physician Assistant
DX: C34.91 Malignant neoplasm of unspecified part of right bronchus or lung (principal); C79.31 Secondary malignant neoplasm of brain; G31.84 Mild cognitive impairment of uncertain or unknown etiology
CPT/HCPCS: 71260; 74177; Q9967

== ENCOUNTER 2025-04-30 14:44 | Outpatient (CLI) | payer BC, SELFPAY ==
--- NOTE | 2025-04-30 15:30 | CRLHL7_ITS ---
For Patients: As a result of the Century Cures Act, medical imaging exams and procedure reports are released immediately into your electronic medical record. You may view this report before your referring provider. If you have questions, please contact your health care provider. INDICATION: Metastatic lung cancer. TECHNIQUE: Multiplanar MRI of the brain was performed with and without the administration of intravenous contrast. IV contrast: 20 mL Dotarem. COMPARISON: Head MRI 02/02/2025 FINDINGS: A 6 mm (previously 7 mm) enhancing lesion in the right middle frontal gyrus. There is similar mild perilesional edema without significant mass effect. A 4 mm (previously 4 mm) lesion in the right inferior frontal gyrus. A 3 mm (previously 3 mm) lesion in the right caudate head. No new abnormal intracranial or leptomeningeal enhancement. No evidence of acute infarction or new intracranial hemorrhage. There are scattered T2/FLAIR hyperintensities in the subcortical and periventricular white matter that are unchanged. While nonspecific, these can be seen as sequela of chronic small vessel ischemia. The ventricles, sulci, and cisterns are within normal limits. Mild mucosal thickening/secretions in the maxillary sinuses. No evidence of acute orbital pathology. No significant mastoid effusion. No suspicious marrow signal abnormality. IMPRESSION: 1. No evidence of new intracranial metastases. 2. A 6 mm enhancing lesion in the right middle frontal gyrus has minimally decreased in size with similar mild perilesional edema. 3. A couple additional intracranial enhancing lesions are stable in size. Dictated by Jose Ramon Llanos MD @ 05/01/2025 6:50:06 AM (Electronically Signed)
== END 2025-04-30 14:45 | disposition home or self-care (01) ==
LOC: MRI 14:45
PROVIDERS: PCP Physician Assistant; Visit Provider Physician Assistant
DX: C79.31 Secondary malignant neoplasm of brain (principal); C34.91 Malignant neoplasm of unspecified part of right bronchus or lung; G31.84 Mild cognitive impairment of uncertain or unknown etiology
CPT/HCPCS: 70553; A9575